=== PATIENT | female | born 1935 | race Caucasian/White ===

== ENCOUNTER → 2018-03-29 10:32 | Outpatient (CLI) | payer MEDICARE, SELFPAY ==
--- NOTE | 2018-03-29 10:37 | BD_ITS ---
STUDY: DUAL ENERGY X-RAY ABSORPTIOMETRY / DXA REASON FOR EXAM: Female, 82 years old. Bone density screening in a postmenopausal patient. TECHNIQUE: Bone Mineral Density (BMD) measurements of lumbar spine and bilateral hips were obtained. COMPARISON: Prior comparison studies are not available for review at this time. FINDINGS: Lumbar Spine (L1-L4): g/cm2 (1.172) / T-score (0.1) / Z-score (1.9) Findings are suggestive of normal bone density with a low fracture risk. Left Femur Total: g/cm2 (0.948) / T-score (-0.5) / Z-score (1.6) Left Femoral Neck: g/cm2 (0.882) / T-score (-1.1) / Z-score (1.1) Right Femur Total: g/cm2 (0.872) / T-score (-1.1) / Z-score (1.0) Right Femoral Neck: g/cm2 (0.853) / T-score (-1.3) / Z-score (0.9) BD/Dexa Bone Density Study IMPRESSION: The patient is considered osteopenic as outlined below according to World Darrel Organization (WHO) criteria with a moderate fracture risk. Reference Information: The T-score is the number of standard deviations above or below the standard which is normal for young adults at their peak bone mineral density. The World Health Organization (WHO) interprets the T-scores as follows: Above -1 Normal bone density Between -1 and -2.5 Osteopenia Equal to / or below -2.5 Osteoporosis As a practical clinical guideline, osteopenia may be graded as follows: Mild -1 through -1.5 Moderate -1.6 through -2.0 Severe -2.1 through -2.4 The Z-score is the number of standard deviations above or below age-matched controls. A Z-score of less than -1.5 would be considered abnormal. References: 1. NIH Osteoporosis and Related Bone Diseases http://www.osteo.org 2. International Society for Clinical Densitometry http://www.iscd.org 3. National Osteoporosis Foundation http://www.nof.org Electronically Signed: Irish Garcia MD at 9:15 EDT , Service support ,
== END ==
PROVIDERS: Family Provider Family Medicine; PCP Family Medicine; Visit Provider Family Medicine
DX: Z00.00 Encounter for general adult medical examination without abnormal findings (principal); Z78.0 Asymptomatic menopausal state
CPT/HCPCS: 77080

== ENCOUNTER → 2018-07-07 11:21 | Outpatient (CLI) | payer MEDICARE, SELFPAY ==
[2018-07-09 08:37] LABS: Vitamin D,25 Hydroxy 55.6 ng/mL (29.95-100.01)
== END ==
PROVIDERS: Family Provider Family Medicine; PCP Family Medicine; Visit Provider Family Medicine
DX: E55.9 Vitamin D deficiency, unspecified (principal)
CPT/HCPCS: 36415; 82306

== ENCOUNTER → 2018-08-10 10:42 | Outpatient (CLI) | payer MEDICARE, SELFPAY | PROVIDERS: Family Provider Family Medicine; PCP Family Medicine; Visit Provider Family Medicine | DX: R30.0 Dysuria (principal) | CPT/HCPCS: 87086; 87088 ==

== ENCOUNTER → 2018-08-20 11:46 | Outpatient (CLI) | payer MEDICARE, SELFPAY | PROVIDERS: Family Provider Family Medicine; PCP Family Medicine; Visit Provider Family Medicine | DX: R30.0 Dysuria (principal) | CPT/HCPCS: 87077; 87086; 87088; 87186 ==

== ENCOUNTER → 2019-01-07 10:20 | Outpatient (CLI) | payer MEDICARE, SELFPAY ==
[2019-01-07 11:47] LABS: Vitamin D,25 Hydroxy 24.6 ng/mL (29.95-100.01)
[2019-01-07 12:12] LABS: ALB/GLOB Ratio 1.2 RATIO (0.9-2.4); AST(SGOT) 16 U/L (15-37); Alanine Aminotransfer ALT/SGPT 21 U/L (13-56); Albumin, Serum 3.9 g/dL (3.2-5.0); Alkaline Phosphatase 95 U/L (45-117); Anion Gap 10 (5-15); BUN 19 mg/dL (7-18); BUN/Creat Ratio 24.5 RATIO (10-20); Calcium,Total 9.5 mg/dL (8.5-10.1); Chloride 107 mmol/L (98-107); Cholesterol 205 mg/dL (200); Creatinine, Serum 0.78 mg/dL (0.55-1.02); EST Glomerular Filtration Rate 76 mL/min (>60); Est Glom Filt Rate - Afr Amer 92 mL/min (>60); Globulin 3.3 g/dL (2.2-4.2); Glucose 83 mg/dL (74-106); High Density Lipoprotein 73 mg/dL; Potassium 3.9 mmol/L (3.5-5.1); Protein, Total 7.2 g/dL (6.4-8.2); Sodium Level 143 mmol/L (136-145); Thyroid Stim Hormone (TSH) 0.92 uIU/mL (0.358-3.74); Triglycerides 94 mg/dL; Very Low Density Lipoprotein 19 mg/dL (5-40)
== END ==
PROVIDERS: Family Provider Family Medicine; PCP Family Medicine; Referring Provider Family Medicine; Visit Provider Family Medicine
DX: E78.5 Hyperlipidemia, unspecified (principal); M85.80 Other specified disorders of bone density and structure, unspecified site; E55.9 Vitamin D deficiency, unspecified
CPT/HCPCS: 36415; 80053; 80061; 82306; 84443

== ENCOUNTER 2019-01-25 14:20 | Emergency (ER) | payer MEDICARE, SELFPAY ==
[2019-01-25 14:24] VITALS: BP 186/63; PULSE 67; RESP 16; TEMP 36.4; O2SAT 100; BMI 29.1
[2019-01-25 14:55] LABS: Bacteria 0 SEEN /hpf (None Seen); Mucous, Urine 0 SEEN /hpf (<or=2+)
[2019-01-25 14:57] LABS: Color, Urine Yellow (Yellow); Glucose, Dipstick Normal (Normal); Ketone-Dipstick Negative (Negative); Leukocyte Esterase-Dipstick 25 /ul (Negative); Nitrite-Dipstick Negative (Negative); Occult Blood-Urine 250 /ul (Negative); Protein-Dipstick 15 mg/dl (Negative); Specific Gravity, Urine 1.025 (1.002-1.030); Urine Bilirubin Dipstick Negative (Negative); Urine Clarity Sl. Cloudy (Clear); Urine Urobilinogen Normal (Normal)
[2019-01-25 15:03] LABS: Red Blood Cells-Urine 25-50 SEEN /hpf (0-5); Squamous Epithelial Cells - UA 0-5 SEEN /hpf (5-10)
[2019-01-25 15:04] LABS: White Blood Cells 0-5 SEEN /hpf (0-5)
--- NOTE | 2019-01-25 15:30 | CT_ITS ---
STUDY: CT ABDOMEN AND PELVIS WITH CONTRAST REASON FOR EXAM: Female, 83 years old. Left flank pain, history of abdominal sarcoma status post radiation treatment RADIATION DOSAGE (If Supplied By Facility): CTDIvol = ( 15.6 ) mGy, DLP = ( 1028.52 ) mGycm TECHNIQUE: Transaxial images were obtained from the dome of the diaphragm to the symphysis pubis with oral contrast. Isovue 300 100CC IV/Oral was administered. Sagittal and coronal images were reconstructed. Individualized dose optimization techniques were used for this CT. COMPARISON: Prior study of December 31, 2010 FINDINGS: There is a pleural-based 3 mm nodule of the right lower lobe image 4 of series 2. There is a 3 mm nodule of the left lingula also image 4 series 2. The heart size is within normal limits. There is no pericardial effusion. Coronary arterial calcifications are present. There are multiple hepatic cysts. The largest of these is located in the left hepatic lobe and measures 4.5 cm in diameter. One of the left hepatic lobe cyst demonstrates calcified rim. There is a solitary gallstone. There is a small cyst of the anterior spleen. There is prominence of the pancreatic head measuring up to 3.7 cm in diameter. This is stable however from the previous study. Normal bilateral adrenal glands. There are several right renal cysts, stable in the interval. Normal left kidney. There is a small hiatal hernia. Normal small intestine. There is colonic diverticulosis with no evidence of associated diverticulitis. The appendix is visualized and appears normal. There are calcified plaques of the abdominal aorta and common iliac arteries. Normal inferior vena cava. Normal retroperitoneum. Normal urinary bladder. The uterus and adnexal structures are unremarkable. There is a small fluid collection of the mid anterior abdominal wall measuring 1.8 x 0.6 cm, most likely representing a postoperative seroma. There has been interval removal of a large fatty density left abdominal/pelvic mass seen on the previous study. There has also been interval postsurgical removal of predominantly fatty density mass of the left gluteal musculature seen on the prior study. There are diffuse degenerative changes of the visualized thoracolumbar spine. There is a grade 1 anterolisthesis of L4 relative to L5. There is a unilateral left L5 spondylolysis. CT/Abdomen/Pelvis WITH Contrast IMPRESSION: Evidence of surgical removal of previously noted left abdominal/pelvic and left gluteal musculature masses noted on the prior study. There is no evidence of new or recurrent malignancy. Small pleural-based pulmonary nodules, stable in the interval. Multiple hepatic cysts, the majority of which appear similar to the previous study. Cholelithiasis. Subcentimeter cyst of the anterior spleen. Pancreatic head prominence measuring up to 3.7 cm in diameter, stable in the interval. Small hiatal hernia. Small fluid collection of the mid anterior abdominal wall measuring 1.8 x 0.6 cm most likely representing a postoperative seroma. Grade 1 anterolisthesis of L4 relative to L5. Unilateral left L5 spondylolysis. Electronically Signed: Reymundo Quezada MD at 18:00 EST , Service support ,
[2019-01-25 15:41] LABS: Absolute Lymphocyte Count 1.15 X10^3/ul (0.83-4.51); Absolute Neutrophil Count 5.5 X10^3/uL (2.0-7.7); Basophil# 0.03 X10^3/uL; Basophil% 0.4 % (0-1); Eosinophil# 0.22 X10^3/uL; Hematocrit 43.5 % (37-47); Hemoglobin 13.9 g/dl (12.0-15.0); Lymphocyte # 1.15 X10^3/ul (4.0); Lymphocyte % 15.5 % (19-41); Mean Corpuscular Hgb 27.9 pg (27.0-32.0); Mean Corpuscular Volume 87.2 fL (81-99); Mean Platelet Vol. 10.8 fl (6.2-12.0); Monocyte% 6.7 % (0-10); Neutrophil # 5.52 X10^3/uL (2.7-7.7); Neutrophil % 74.3 % (47-70); Platelet Count 269 K/mm3 (150-450); RBC Distribution Width CV 14.1 % (11.6-14.6); RBC Distribution Width SD 44.4 fl (35.1-43.9); Red Blood Count 4.99 M/mm3 (4.2-5.4); White Blood Count 7.4 K/mm3 (4.4-11.0)
--- NOTE | 2019-01-25 15:41 | ED.VISSUMM ---
- ER Visit Summary Date of Service: 01/25/19 Chief Complaint: Flank pain History of Present Illness: The patient is a [address] Torres. She reports she had the abrupt onset of left flank pain 1:00 this afternoon. It was a sharp pain is 10 at 10 worst and she is now pain-free. It was worsened by nothing relieved by nothing. She had nausea without vomiting. Denies any diarrhea. She had a loose stool today. No blood in her stools or black tarry stools. No dysuria frequency. She reports this is similar to when she had kidney stones in the past. Review of systems otherwise negative. Physical Examination: Vitals: Stable. Afebrile. General: Well-nourished and well-developed. Head: Normocephalic atraumatic. Neck: Supple, no lymphadenopathy. No JVD. Nontender. Cardiovascular: Regular rate and rhythm. No murmurs. Respiratory: No respiratory distress. Clear to auscultation bilaterally. Abdominal: Soft, nontender, nondistended, normal bowel sounds. No guarding, rebound, or peritoneal signs. Back: Nontender. Extremities: Nontender, no edema. Skin: Normal color, no rash. Neurologic: Alert and oriented ?3. Cranial nerves II through XII are intact. Normal strength and sensation. Psych: Normal affect. Test Results: CBC is remarkable for segmented neutrophils of 74 and lymphocytes 16. Chem-7 is remarkable for a sodium 146, chloride 111, BUN 22. UA is consistent with a stone. She has 25-50 red blood cells. No evidence of infection. Clinical Impression(s) from Imaging Studies Abdomen/Pelvis CT 01/25/19 15:30 IMPRESSION: Evidence of surgical removal of previously noted left abdominal/pelvic and left gluteal musculature masses noted on the prior study. There is no evidence of new or recurrent malignancy. Small pleural-based pulmonary nodules, stable in the interval. Multiple hepatic cysts, the majority of which appear similar to the previous study. Cholelithiasis. Subcentimeter cyst of the anterior spleen. Pancreatic head prominence measuring up to 3.7 cm in diameter, stable in the interval. Small hiatal hernia. Small fluid collection of the mid anterior abdominal wall measuring 1.8 x 0.6 cm most likely representing a postoperative seroma. Grade 1 anterolisthesis of L4 relative to L5. Unilateral left L5 spondylolysis. Electronically Signed: Reymundo Quezada MD at 18:00 EST , Service support , Emergency Department Course and Treatment: Patient had a CT obtained to look for the kidney stone. She was scheduled to have a follow-up CT for her history of cancer. Because of this she was given p.o. and IV contrast. The read is as above. They do not comment on ureterolithiasis. I reviewed the CT myself and she has a number of calcifications in the pelvis. However, I do think that 1 of these is in the distal ureter. She is resting comfortably. Treatment Plan: Patient will be discharged with instructions to follow-up Dr. Milner in 1 week if not improving. She given a prescription for [place] and Colace. Return to the emergency department for any worsening symptoms. Disposition: To home in improved and stable condition. Impression: 1 1. Left ureterolithiasis. This note was generated with [employer] dictation software. It may contain incorrect words, spelling, and punctuation that were not noted in review of the chart prior to signing ED Disposition - Plan for ED Patient: Disposition: Home or Assisted Living Instructions: ED Stone Renal W Colic Prescriptions: Hydrocodone Bitart/Apap 5-325 [[place] 5MG-325MG] 1 tablet PO Q6H PRN PRN 3 Days #10 tablet PRN Reason: Pain Ondansetron [Zofran Odt] 4 mg PO Q8H PRN PRN #10 tablet PRN Reason: Nausea Referrals: Jordan Milner MD [STAFF PHYSICIAN] - 1 Week if not improving Akshat Yu MD [STAFF PHYSICIAN] - Keep Odalis appointment
[2019-01-25 15:49] LABS: Anion Gap 9 (5-15); BUN 22 mg/dL (7-18); BUN/Creat Ratio 24.4 RATIO (10-20); Calcium,Total 9.3 mg/dL (8.5-10.1); Chloride 111 mmol/L (98-107); EST Glomerular Filtration Rate 64 mL/min (>60); Est Glom Filt Rate - Afr Amer 77 mL/min (>60); Estimated Creatinine Clearance 46.87 ml/min; Glucose 96 mg/dL (74-106); Sodium Level 146 mmol/L (136-145)
[2019-01-25 16:05] LABS: POSITIVE COUNT NO; POSITIVE DIFFERENTIAL NO; POSITIVE MORPHOLOGY NO
[2019-01-25 17:28] VITALS: BP 176/69; PULSE 65; RESP 18; O2SAT 99
[2019-01-25 19:10] VITALS: BP 178/62; PULSE 82; RESP 18; O2SAT 95
== END 2019-01-25 19:11 | disposition home or self-care (01) ==
LOC: ED 15:40
PROVIDERS: Emergency Provider Emergency Medicine; Family Provider Family Medicine; PCP Family Medicine
DX: N20.1 Calculus of ureter (principal); I10 Essential (primary) hypertension; K76.89 Other specified diseases of liver; K80.20 Calculus of gallbladder without cholecystitis without obstruction; K44.9 Diaphragmatic hernia without obstruction or gangrene; H40.9 Unspecified glaucoma; Z79.899 Other long term (current) drug therapy; Z87.442 Personal history of urinary calculi; Z85.9 Personal history of malignant neoplasm, unspecified
CPT/HCPCS: 74177; 80048; 81001; 85025; 99283; Q9967; A4216

== ENCOUNTER → 2019-03-12 11:05 | Outpatient (CLI) | payer MEDICARE, SELFPAY | LOC: MFPLAB 11:06 → LABSPEC 11:08 | PROVIDERS: Family Provider Family Medicine; PCP Family Medicine; Referring Provider Family Medicine; Visit Provider Nurse Practitioner Adult Health | DX: R30.0 Dysuria (principal) | CPT/HCPCS: 87077; 87086; 87088; 87186 ==

== ENCOUNTER 2019-04-10 10:53 | Emergency (ER) | payer MEDICARE, SELFPAY ==
[2019-04-10 10:55] VITALS: BP 182/72; PULSE 62; RESP 18; TEMP 36.4; O2SAT 99; BMI 31.3
--- NOTE | 2019-04-10 11:17 | RAD_ITS ---
STUDY: X-RAY - LEFT FOOT CLINICAL: Female, 83 years old. Pain and swelling. Recent injury. TECHNIQUE: 3 view(s) of the foot. COMPARISON: None. FINDINGS: There is an enthesophyte involving the posterior superior calcaneus at the site of insertion of the Achilles tendon. Normal visualized subtalar, talonavicular, calcaneocuboid, tarsal and tarsometatarsal articulations. Normal metatarsi. There is degenerative arthrosis of the metatarsophalangeal joint of the hallux . Normal tibial and fibular sesamoid bones. Normal interphalangeal joint of the great toe. Normal phalanges of the great toe. Normal second through fifth metatarsophalangeal joints. Flexion deformity of the second third fourth and fifth proximal interphalangeal joints. Diffuse dorsal soft tissue swelling. RAD/Foot min 3 Views IMPRESSION: Diffuse dorsal soft tissue swelling. No fracture is seen. Electronically Signed: Perry Dooley, at 11:42 EDT , Service support ,
--- NOTE | 2019-04-10 11:24 | ED.VISSUMM ---
- ER Visit Summary Date of Service: 04/10/19 Chief Complaint: Foot injury History of Present Illness: The patient is a 83 F who excellently dropped a drawer on her left foot. She notes swelling and bruising. Pain with touch and ambulation. Physical Examination: Afebrile vital signs stable There is a large hematoma over the dorsal surface of the left foot. Neurovascular intact. Test Results: Foot x-rays revealed a hematoma but no fracture. Emergency Department Course and Treatment: Patient be discharged home with supportive care instructions for ice elevation return if worsening or concerns Impression: 1. Left foot hematoma This note was generated with [employer] dictation software. It may contain incorrect words, spelling, and punctuation that were not noted in review of the chart prior to signing ED Disposition - Plan for ED Patient: Disposition: Home or Assisted Living Instructions: ED Hematoma Referrals: Harley Harding MD [Primary Care Provider] - As Needed
--- NOTE | 2019-04-10 11:27 | ED.DCSUM_ITS ---
- ER Visit Summary Date of Service: 04/10/19 Chief Complaint: Foot injury History of Present Illness: The patient is a 83 F who excellently dropped a drawer on her left foot. She notes swelling and bruising. Pain with touch and ambulation. Physical Examination: Afebrile vital signs stable There is a large hematoma over the dorsal surface of the left foot. Neurovascular intact. Test Results: Foot x-rays revealed a hematoma but no fracture. Emergency Department Course and Treatment: Patient be discharged home with supportive care instructions for ice elevation return if worsening or concerns Impression: 1. Left foot hematoma This note was generated with [facility] dictation software. It may contain incorrect words, spelling, and punctuation that were not noted in review of the chart prio r to signing ED Disposition - Plan for ED Patient: Disposition: Home or Assisted Living Instructions: ED Hematoma Referrals: Harley Harding MD [Primary Care Provider] - As Needed
== END 2019-04-10 12:15 | disposition home or self-care (01) ==
PROVIDERS: Emergency Provider Emergency Medicine; Family Provider Family Medicine; PCP Family Medicine
DX: S90.32XA Contusion of left foot, initial encounter (principal); W20.8XXA Other cause of strike by thrown, projected or falling object, initial encounter; Y93.9 Activity, unspecified; Y92.9 Unspecified place or not applicable; Y99.9 Unspecified external cause status; Z79.899 Other long term (current) drug therapy
CPT/HCPCS: 73630; 99282

== ENCOUNTER → 2019-04-18 14:54 | Outpatient (CLI) | payer MEDICARE, SELFPAY ==
[2019-04-10 10:55] VITALS: BMI 31.3
--- NOTE | 2019-04-18 15:00 | RAD_ITS ---
STUDY: X-RAY - LEFT FOOT CLINICAL: Female, 83 years old. heavy part of desk fell off onto top of patient's left foot, lac on top, bruising by toes and medial foot TECHNIQUE: 3 view(s) of the foot. COMPARISON: None. FINDINGS: Normal talus, calcaneus, and tarsal bones. Spurring is noted in association with the Achilles tendon insertion upon the calcaneus. Normal visualized subtalar, talonavicular, calcaneocuboid, tarsal and tarsometatarsal articulations. Normal metatarsi. There is mild degenerative arthrosis of the metatarsophalangeal joint of the hallux with joint space loss and mild spurring. . Normal tibial and fibular sesamoid bones. Normal interphalangeal joint of the great toe. Normal phalanges of the great toe. Normal second through fifth metatarsophalangeal joints. Normal interphalangeal joints and phalanges of the lesser toes. Prominent soft tissue swelling is noted over the dorsum of the forefoot. There is no demonstrated fracture. RAD/Foot min 3 Views IMPRESSION: No evidence of fracture. Prominent soft tissue swelling overlies the dorsum of the forefoot. Electronically Signed: Catarina Singh MD at 19:11 EDT , Service support ,
== END ==
PROVIDERS: Family Provider Family Medicine; PCP Family Medicine; Referring Provider Family Medicine; Visit Provider Family Medicine
DX: S99.922A Unspecified injury of left foot, initial encounter (principal); X58.XXXA Exposure to other specified factors, initial encounter; Y93.9 Activity, unspecified; Y92.9 Unspecified place or not applicable; Y99.9 Unspecified external cause status
CPT/HCPCS: 73630

== ENCOUNTER → 2019-05-01 16:47 | Outpatient (CLI) | payer MEDICARE, SELFPAY ==
[2019-04-10 10:55] VITALS: BMI 31.3
[2019-05-01 17:56] LABS: Anion Gap 7 (5-15); BUN 25 mg/dL (7-18); BUN/Creat Ratio 28.2 RATIO (10-20); Calcium,Total 9.5 mg/dL (8.5-10.1); Chloride 108 mmol/L (98-107); Creatinine, Serum 0.88 mg/dL (0.55-1.02); EST Glomerular Filtration Rate 65 mL/min (>60); Est Glom Filt Rate - Afr Amer 79 mL/min (>60); Glucose 92 mg/dL (74-106); Potassium 4.4 mmol/L (3.5-5.1); Sodium Level 141 mmol/L (136-145)
== END ==
PROVIDERS: Family Provider Family Medicine; PCP Family Medicine; Referring Provider Family Medicine; Visit Provider Family Medicine
DX: I10 Essential (primary) hypertension (principal)
CPT/HCPCS: 36415; 80048

== ENCOUNTER → 2019-10-29 13:22 | Outpatient (CLI) | payer MEDICARE, SELFPAY | PROVIDERS: Family Provider Family Medicine; PCP Family Medicine; Referring Provider Family Medicine; Visit Provider Family Medicine | DX: N39.0 Urinary tract infection, site not specified (principal) | CPT/HCPCS: 87086; 87088 ==

== ENCOUNTER → 2020-01-08 16:53 | Outpatient (CLI) | payer MEDICARE, SELFPAY | PROVIDERS: PCP Family Medicine; Referring Provider Family Medicine; Visit Provider Family Medicine | DX: N39.0 Urinary tract infection, site not specified (principal) | CPT/HCPCS: 87077; 87086; 87088; 87186 ==

== ENCOUNTER → 2020-01-30 10:42 | Outpatient (CLI) | payer MEDICARE, SELFPAY ==
[2020-01-30 13:01] LABS: ALB/GLOB Ratio 1.3 RATIO (0.9-2.4); AST(SGOT) 19 U/L (15-37); Alanine Aminotransfer ALT/SGPT 21 U/L (13-56); Albumin, Serum 3.6 g/dL (3.2-5.0); Alkaline Phosphatase 74 U/L (45-117); Anion Gap 4 (5-15); BUN 22 mg/dL (7-18); BUN/Creat Ratio 25.6 RATIO (10-20); Calcium,Total 9.5 mg/dL (8.5-10.1); Chloride 109 mmol/L (98-107); Cholesterol 161 mg/dL (200); Creatinine, Serum 0.86 mg/dL (0.55-1.02); EST Glomerular Filtration Rate 67 mL/min (>60); Est Glom Filt Rate - Afr Amer 81 mL/min (>60); Globulin 2.7 g/dL (2.2-4.2); Glucose 78 mg/dL (74-106); High Density Lipoprotein 63 mg/dL; Potassium 4.3 mmol/L (3.5-5.1); Protein, Total 6.3 g/dL (6.4-8.2); Sodium Level 142 mmol/L (136-145); Triglycerides 84 mg/dL; Very Low Density Lipoprotein 17 mg/dL (5-40)
[2020-01-30 20:21] LABS: Vitamin D,25 Hydroxy 30.7 ng/mL
== END ==
PROVIDERS: PCP Family Medicine; Referring Provider Family Medicine; Visit Provider Family Medicine
DX: E78.5 Hyperlipidemia, unspecified (principal); E55.9 Vitamin D deficiency, unspecified
CPT/HCPCS: 36415; 80053; 80061; 82306

== ENCOUNTER → 2020-04-03 | Outpatient (CLI) | payer MEDICARE, SELFPAY | END | disposition home or self-care (01) | PROVIDERS: Referring Provider Family Medicine; Visit Provider Family Medicine | DX: N39.0 Urinary tract infection, site not specified (principal) | CPT/HCPCS: 87086 ==

== ENCOUNTER → 2020-08-06 14:39 | Outpatient (CLI) | payer MEDICARE, SELFPAY ==
[2020-08-06 16:33] LABS: Vitamin D,25 Hydroxy 37.5 ng/mL
[2020-08-06 16:37] LABS: Anion Gap 5 (5-15); BUN 31 mg/dL (7-18); BUN/Creat Ratio 34.7 RATIO (10-20); Calcium,Total 9.6 mg/dL (8.5-10.1); Chloride 107 mmol/L (98-107); Creatinine, Serum 0.89 mg/dL (0.55-1.02); EST Glomerular Filtration Rate 64 mL/min (>60); Est Glom Filt Rate - Afr Amer 77 mL/min (>60); Glucose 108 mg/dL (74-106); Sodium Level 141 mmol/L (136-145); Thyroid Stim Hormone (TSH) 0.59 uIU/mL (0.358-3.74)
== END ==
PROVIDERS: PCP Family Medicine; Referring Provider Family Medicine; Visit Provider Family Medicine
DX: I10 Essential (primary) hypertension (principal); E55.9 Vitamin D deficiency, unspecified
CPT/HCPCS: 36415; 80048; 82306; 84443

== ENCOUNTER → 2020-08-10 13:55 | Outpatient (CLI) | payer MEDICARE, SELFPAY ==
--- NOTE | 2020-08-10 13:58 | RAD_ITS ---
STUDY: X-RAY - LEFT KNEE REASON FOR EXAM: Female, 84 years old. Left knee pain. No known injury. Knee replacement 13-14 years ago. TECHNIQUE: 3 view(s) of the knee. COMPARISON: None. FINDINGS: Total knee arthroplasty in normal alignment. No evidence of loosening. No fracture identified. Small joint effusion. 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 Small joint effusion. Electronically Signed: Jorge Couch MD at 6:36 EDT , Service support ,
== END ==
PROVIDERS: PCP Family Medicine; Referring Provider Family Medicine; Visit Provider Family Medicine
DX: M25.562 Pain in left knee (principal)
CPT/HCPCS: 73562

== ENCOUNTER → 2020-10-19 14:37 | Outpatient (CLI) | payer MEDICARE, SELFPAY | PROVIDERS: PCP Family Medicine; Visit Provider Family Medicine | DX: N39.0 Urinary tract infection, site not specified (principal) | CPT/HCPCS: 87086; 87088 ==

== ENCOUNTER → 2020-10-28 | Outpatient (CLI) | payer MEDICARE, SELFPAY | END | disposition home or self-care (01) | LOC: LABSPEC 14:55 | PROVIDERS: PCP Family Medicine; Visit Provider Family Medicine | DX: Z20.828 Contact with and (suspected) exposure to other viral communicable diseases (principal) | CPT/HCPCS: 87635; U0003 ==

== ENCOUNTER 2020-12-15 11:00 | Outpatient (RCR) | payer MEDICARE, SELFPAY ==
--- NOTE | 2020-08-24 15:05 | HP.PTEVAL ---
Patient's Visit Information ZACKARY HAMILTON is a 84 year old F referred to Physical Therapy by Dr. Harley Harding MD with a diagnosis of L knee pain. Date of Evaluation: 08/24/20 Physical Therapist: Hector Holden PT, ATC - Visit Plan Frequency: 2x /Week Duration: 4 Weeks Plan: L LE strengthening, core stab ex's, balance and proprio, nustep, and HEP - Subjective Pt has had intermittent L LE pain that originates in L quad region and extends to L snider for 6 mos. Pt rteports her pain had an insidious onset in nature. Pt reports she really doesnt have pain, it is more of a tingling and burning sensation. Pt had x rays which revealed her artifial knee is in good shape. Occasional sleep difficulty secondary to pain. Pt does have occasional LBP. Pt reports prolonged sitting tends to increase her pain. Pt also notes she has increased pain in the morning when she wakes up. 0/10 pain at rest, 10/10 when her L LE is aggrivated. Pt's greatest complaint is that her L LE is weak. - Pain L LE Pain Intensity (Out of 10): 0 Pain Intensity Range: 10 - Objective Neuro: B LE sensation is WNL to light touch. B patellar reflex= 2/3. Girth at joint line: L knee 40 cm, R knee 38.5 cm. Palpation: Pt is sore along the medial joint line of L knee. No obvious swelling present today. ROM: R knee 0-5-125 degrees, L knee 0-110 degrees. MMT: B LE's grossly 4/5. L/S: No pain with flex, increased pain with extension activity - Goals Goal 1:: Decrease L LE pain x 50% to aid with sleep Goal Time Frame: 4-6 Weeks Goal 2:: Increase L LE strength x 1 grade to aid with ambulation Goal Time Frame: 4-6 Weeks Goal 3:: I with HEP Goal Time Frame: 4-6 Weeks - Rehabilitation Potential Physical Therapy Diagnosis: Pt has L LE weakness, pain, and poor balance at this time secondary to degenerative changes in L/S Rehabilitation Potential: Good - Anticipated Interventions Patient/Client Instruction: Educate patient on: Condition, Plan of Care For the Purpose of:: To improve self management Therapeutic Exercise to Include: Strength training, Endurance training, Balance training, Dynamic Lumbar Stabilization For the Purpose of:: To decrease pain, To improve muscle performance and motor function Thank you for the opportunity to evaluate your patient. For Medicare and Medicare HMO plans, please review the plan of care and approve it. It will need to be FAXED BACK to us at [phone] for Medicare purposes. For Medicare only, by signing this I certify the plan of care. Please let me know if there are questions or concerns regarding this plan of care. Physician Signature: Date:
--- NOTE | 2020-10-07 13:08 | HP.PTREVAL ---
Dr. Harley Harding MD, It has been my pleasure to treat ZACKARY HAMILTON over the last 9 visits for L knee pain. Please see the progress note below for an update on the physical therapy plan of care! Subjective: I like the exercises that we have been doing, but I dont think this has really helped. Objective/Function: L knee pain is 0/10. 5/10 pain at worst (a quick twinge). L knee MMT: flex= 5/5, ext= 4-/5. Pt is I with HEP. Pt is showing progress, but is still limited with daily activities such as stair negotiation and floor transfers Plan Plan: cont 1 time per week in clinic and 2 times a week at home with HEP Goals Goal 1:: Decrease L LE pain x 50% to aid with sleep Goal Time Frame: 4-6 Weeks Goal Progress: Goal Met Goal 2:: Increase L LE strength x 1 grade to aid with ambulation Goal Time Frame: 4-6 Weeks Goal Progress: Progressing Goal 3:: I with HEP Goal Time Frame: 4-6 Weeks Goal Progress: Goal Met Anticipated Interventions Patient/Client Instruction: Educate patient on: Condition, Plan of Care For the Purpose of:: To improve self management Therapeutic Exercise to Include: Strength training, Endurance training, Balance training, Dynamic Lumbar Stabilization For the Purpose of:: To decrease pain, To improve muscle performance and motor function Please do not hesitate to contact me at [phone] by phone or if you have questions or concerns regarding this new plan of care! Sincerely, Hector Holden, PT, ATC
--- NOTE | 2020-11-09 12:07 | HP.PTREVAL ---
Dr. Harley Harding MD, It has been my pleasure to treat ZACKARY HAMILTON over the last 13 visits for L knee pain. Please see the progress note below for an update on the physical therapy plan of care! Subjective: Pt reports she can now reciprocally negotiate stairs. Objective/Function: L LE pain ranges from 0-5/10. L LE strength is 4+/5. Pt is progressing with strength and tolerance for activity Plan Plan: Cont with PT one time per week (here supervised) and 2 times per week at home. Goals Goal 1:: Decrease L LE pain x 50% to aid with sleep Goal Time Frame: 4-6 Weeks Goal Progress: Goal Met Goal 2:: Increase L LE strength x 1 grade to aid with ambulation Goal Time Frame: 4-6 Weeks Goal Progress: Progressing Goal 3:: I with HEP Goal Time Frame: 4-6 Weeks Goal Progress: Goal Met Anticipated Interventions Patient/Client Instruction: Educate patient on: Condition, Plan of Care For the Purpose of:: To improve self management Therapeutic Exercise to Include: Strength training, Endurance training, Balance training, Dynamic Lumbar Stabilization For the Purpose of:: To decrease pain, To improve muscle performance and motor function Please do not hesitate to contact me at [phone] by phone or if you have questions or concerns regarding this new plan of care! Sincerely, Hector Holden, PT, ATC
--- NOTE | 2020-12-15 11:49 | HP.PTDCSUM_ITS ---
It has been my pleasure to treat ZACKARY HAMILTON referred by Dr. Harley Harding MD, with the diagnosis of L knee pain for a total of 16 visit(s). Discharge Date: Please see the following information for a summary of their discharge status. Subjective: Pt reports she has improved a lot functionally, but still has that pain in L LE L LE Pain Intensity (Out of 10): 3 % Improvement: 30 Objective/Function: MMT: L LE is 5/5 throughout. L knee pain ranges from 0- 3/10. Pt is I with HEP. Rx goals achieved Goal 1:: Decrease L LE pain x 50% to aid with sleep Goal Progress: Goal Met Goal 2:: Increase L LE strength x 1 grade to aid with ambulation Goal Progress: Goal Met Goal 3:: I with HEP Goal Progress: Goal Met Plan: RTD in January to follow up about L LE radiculopathy. Discharge from PT If there are questions or concerns regarding this patient's physical therapy, please feel free to call me at [phone]. Thank you for the referral of this patient. Sincerely, Hector Holden, PT, ATC
== END 2020-12-15 12:19 | disposition home or self-care (01) ==
LOC: PT 11:00
PROVIDERS: PCP Family Medicine; Referring Provider Family Medicine; Visit Provider Family Medicine
DX: M25.562 Pain in left knee (principal)
CPT/HCPCS: 97110; 97161; 97164

== ENCOUNTER → 2021-01-21 | Outpatient (CLI) | payer MEDICARE, SELFPAY | END | disposition home or self-care (01) | PROVIDERS: PCP Family Medicine; Referring Provider Family Medicine; Visit Provider Family Medicine | DX: N39.0 Urinary tract infection, site not specified (principal) | CPT/HCPCS: 87077; 87086; 87088; 87186 ==

== ENCOUNTER → 2021-02-18 10:58 | Outpatient (CLI) | payer MEDICARE, SELFPAY ==
--- NOTE | 2021-02-18 11:02 | BD_ITS ---
STUDY: DUAL ENERGY X-RAY ABSORPTIOMETRY / DXA REASON FOR EXAM: Female, 85 years old. 627.8Menopausal postmenopausal BONE DENSITY REASON FOR EXAM TECHNIQUE: Bone Mineral Density (BMD) measurements of lumbar spine and bilateral hips were obtained. COMPARISON: Comparison is made with prior study dated 03/29/2018. FINDINGS: Lumbar Spine (L1-L4): g/cm2 (1.293) / T-score (1.1) / Z-score (3.0) Findings are suggestive of normal bone density with a low fracture risk. Left Femur Total: g/cm2 (0.911) / T-score (-0.8) / Z-score (1.5) Left Femoral Neck: g/cm2 (0.866) / T-score (-1.2) / Z-score (1.1) Right Femur Total: g/cm2 (0.876) / T-score (-1.0) / Z-score (1.2) Right Femoral Neck: g/cm2 (0.882) / T-score (-1.1) / Z-score (1.2) The T-Scores on the most recent prior examination were: Lumbar Spine (L1-L4): There has been improvement of bone density since the previous examination. Left Femur Total: which represents a worsening of 3.9%. Right Femur Total: which represents an improvement of 0.5%. BD/Dexa Bone Density Study IMPRESSION: The patient is considered osteopenic as outlined below according to World Darrel Organization (WHO) criteria with a low fracture risk. There has been improvement of bone density since the previous examination. Reference Information: The T-score is the number of standard deviations above or below the standard which is normal for young adults at their peak bone mineral density. The World Health Organization (WHO) interprets the T-scores as follows: Above -1 Normal bone density Between -1 and -2.5 Osteopenia Equal to / or below -2.5 Osteoporosis As a practical clinical guideline, osteopenia may be graded as follows: Mild -1 through -1.5 Moderate -1.6 through -2.0 Severe -2.1 through -2.4 The Z-score is the number of standard deviations above or below age-matched controls. A Z-score of less than -1.5 would be considered abnormal. References: 1. NIH Osteoporosis and Related Bone Diseases www osteo.org 2. International Society for Clinical Densitometry www iscd.org 3. National Osteoporosis Foundation www nof.org Electronically Signed: Perry Dooley MD at 12:51 EDT , Service support ,
== END ==
PROVIDERS: PCP Family Medicine; Referring Provider Family Medicine; Visit Provider Family Medicine
DX: M85.80 Other specified disorders of bone density and structure, unspecified site (principal); Z78.0 Asymptomatic menopausal state
CPT/HCPCS: 77080

== ENCOUNTER → 2021-02-23 11:08 | Outpatient (CLI) | payer MEDICARE, SELFPAY ==
--- NOTE | 2021-02-23 11:09 | ART_ITS ---
Reason For Study: PVD Procedure A bilateral lower extremity continuous wave Doppler with analog waveform analysis and ankle brachial indexes. Left Segmental Pressures Left brachial= 181mmHg. Left posterior tibial artery = 180mmHg. Left dorsalis pedis artery = 178mmHg. Left digit = 117 mmHg. The left dorsalis pedis waveforms are triphasic. The left posterior tibial artery waveforms are triphasic. Right Segmental Pressures Right brachial= 173mmHg. Right posterior tibial artery = 188mmHg. Right dorsalis pedis artery = 196mmHg. Right digit = 143 mmHg. The right dorsalis pedis waveforms are triphasic. The right posterior tibial artery waveforms are triphasic. Indices The right ankle brachial index by the dorsalis pedis is 1.08. The right ankle brachial index by the posterior tibial artery is 1.04. The right digital-brachial index is 0.79. The left ankle brachial index by the dorsalis pedis is 0.98. The left ankle brachial index by the posterior tibial artery is 0.99. The left digital-brachial index is 0.65. VL/Ankle Brachial Index Interpretation Summary Triphasic Doppler waveforms are noted at ankle level bilaterally. Pulse-volume recordings appear satisfactory at ankle and digital level bilaterally. Resting ankle-brachial ind ices are normal bilaterally. The right digital-brachial index is normal. The left digital-brach ial index is mildly diminished. Arterial flow appears normal at ankle level bilaterally, and at digital level o n the right. There is evidence of mild, distal, small-vessel arterial occlusive disease at digital le kayy on the left. Ordering Physician: Harley Harding Referring Physician: Harley Harding Performed By: Zita Arteaga RVT
== END ==
PROVIDERS: PCP Family Medicine; Referring Provider Family Medicine; Visit Provider Family Medicine
DX: I73.9 Peripheral vascular disease, unspecified (principal)
CPT/HCPCS: 93922

== ENCOUNTER → 2021-07-12 16:11 | Outpatient (CLI) | payer MEDICARE, SELFPAY ==
--- NOTE | 2021-07-12 16:30 | RAD_ITS ---
STUDY: X-RAY - LUMBOSACRAL SPINE REASON FOR EXAM: Female, 85 years old. Back pain. TECHNIQUE: 6 view(s) of the lumbosacral spine including lateral flexion and extension views were obtained. COMPARISON: None FINDINGS: Diffuse moderate osteopenia. Normal lumbar lordosis. Mild levoscoliosis. 15 mm of anterolisthesis of L4 on L5 and 18 mm of anterolisthesis of L5 on S1 from facet degeneration. Limited flexion and extension with no abnormal motion Diffuse marked facet sclerosis. Normal vertebral bodies and endplates. Intervertebral disc space narrowing diffusely most marked at L4-5 and L5-S1 with osteophytes most marked at L5-S1. 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 Surgical clips. Calcification in the right upper quadrant which may represent a gallstone. RAD/L/S Spine w Bend Min 6 Vw IMPRESSION: Osteopenia with diffuse moderate 2 marked lumbar spondylosis. Grade 1 spondylolisthesis of L4 on L5 and of L5 on S1. Limited flexion and extension with no abnormal motion. Electronically Signed: Charles Edouard MD at 12:56 EDT , Service support ,
[2021-07-12 18:05] LABS: Hematocrit 42.1 % (37-47); Hemoglobin 13.5 g/dL (12.0-15.0); Mean Corp Hgb Conc 32.1 g/dL (32-36); Mean Corpuscular Volume 87.2 fL (81-99); Mean Platelet Vol. 10.7 fl (6.2-12.0); Platelet Count 275 K/mm3 (150-450); RBC Distribution Width CV 13.9 % (11.6-14.6); RBC Distribution Width SD 44.4 fl (35.1-43.9); Red Blood Count 4.83 M/mm3 (4.2-5.4); White Blood Count 5.5 K/mm3 (4.4-11.0)
[2021-07-12 18:15] LABS: ALB/GLOB Ratio 1.2 RATIO (0.9-2.4); AST(SGOT) 17 U/L (15-37); Alanine Aminotransfer ALT/SGPT 20 U/L (13-56); Albumin, Serum 3.9 g/dL (3.2-5.0); Alkaline Phosphatase 83 U/L (45-117); Anion Gap 4 (5-15); BUN 30 mg/dL (7-18); BUN/Creat Ratio 43.6 RATIO (10-20); Calcium,Total 9.9 mg/dL (8.5-10.1); Chloride 110 mmol/L (98-107); Creatinine, Serum 0.69 mg/dL (0.55-1.02); EST Glomerular Filtration Rate 86 mL/min (>60); Est Glom Filt Rate - Afr Amer 104 mL/min (>60); Globulin 3.2 g/dL (2.2-4.2); Glucose 87 mg/dL (74-106); Potassium 3.9 mmol/L (3.5-5.1); Protein, Total 7.1 g/dL (6.4-8.2); Sodium Level 141 mmol/L (136-145)
== END ==
PROVIDERS: PCP Family Medicine; Referring Provider Family Medicine; Visit Provider Family Medicine
DX: R11.10 Vomiting, unspecified (principal); M43.17 Spondylolisthesis, lumbosacral region; M47.816 Spondylosis without myelopathy or radiculopathy, lumbar region; M85.80 Other specified disorders of bone density and structure, unspecified site
CPT/HCPCS: 36415; 72114; 80053; 85027

== ENCOUNTER → 2021-07-20 16:23 | Outpatient (CLI) | payer MEDICARE, SELFPAY ==
[2021-07-20 18:19] LABS: Uric Acid 4.7 mg/dL (2.6-6.0)
== END ==
PROVIDERS: PCP Family Medicine; Referring Provider Family Medicine; Visit Provider Family Medicine
DX: M10.9 Gout, unspecified (principal)
CPT/HCPCS: 36415; 84550

== ENCOUNTER 2021-09-21 13:00 | Outpatient (RCR) | payer MEDICARE, SELFPAY ==
--- NOTE | 2021-07-22 11:17 | HP.PTEVAL ---
Patient's Visit Information ZACKARY HAMILTON is a 85 year old F referred to Physical Therapy by Dr. Harley Harding MD with a diagnosis of DDD Lumbar. Date of Evaluation: 07/21/21 Physical Therapist: Hector Holden, PT, ATC - Visit Plan Frequency: 2-3x /Week Duration: 4 Weeks Plan: SKTC/DKTC, postural education, core stab ex's, balance and proprio ex's, nustep, and HEP - Subjective Pt reports she has had L LE radiculopathy for a chronic period of time. Pt reports her pain is intermittent in nature, and her pain has an insidious onset in nature. Pt reports the pain occurs almost every evening, and notes it is always in her L LE. Pt reports she has had blood work and xrays which revealed everything is normal. Pt also notes she has had a bone density test which reveals everything is good for her age. Pt also notes she is here for balance as she has noticed over the past year that her balance keeps getting worse and worse. Pt reports her L LE radiculopathy extends the whole way down. No sleep difficulty secondary to pain. Pt reports the only thing that helps to relieve her pain is to prop her L LE on a stool in front of her. 0/10 pain at rest, 7/10 pain at worst - Pain L LE Pain Intensity (Out of 10): 0 Pain Intensity Range: 7 - Objective Neuro: B LE sensation is WNL to light touch. B patellar reflex= 2/3. MMT: B LE's are grossly 5/5 throughout. ROM: Pt is minimally limited in all planes except ext= moderately limited. Repeated movements: Prone prop 1 min x 2 NE, SKTC/DKTC 10 sec x 3 ea NE - Balance/Special Test Scores Oswestry Low Back Score: 13 - Goals Goal 1:: Decrease L LE radiculopathy x 50% to aid with ambulation Goal Time Frame: 4-6 Weeks Goal 2:: Increase L/S ROM x 1 grade to aid with IADL's Goal Time Frame: 4-6 Weeks Goal 3:: I with HEP Goal Time Frame: 4-6 Weeks - Rehabilitation Potential Physical Therapy Diagnosis: Pt has limited L/S ROM and L LE radiculopathy secondary to DDD Rehabilitation Potential: Good - Anticipated Interventions Patient/Client Instruction: Educate patient on: Condition, Plan of Care For the Purpose of:: To improve self management Therapeutic Exercise to Include: Strength training, Endurance training, Balance training, Postural training, Flexibilty training, Gait and locomotor training, Dynamic Lumbar Stabilization For the Purpose of:: To decrease pain, To increase ROM, To improve muscle performance and motor function Thank you for the opportunity to evaluate your patient. For Medicare and Medicare HMO plans, please review the plan of care and approve it. It will need to be FAXED BACK to us at [phone] for Medicare purposes. For Medicare only, by signing this I certify the plan of care. Please let me know if there are questions or concerns regarding this plan of care. Physician Signature: Date:
--- NOTE | 2021-08-13 12:34 | HP.PTREVAL ---
Dr. Harley Harding MD, It has been my pleasure to treat ZACKARY HAMILTON over the last 9 visits for DDD Lumbar. Please see the progress note below for an update on the physical therapy plan of care! Subjective: I dont have pain right now. I have had 3/10 LBP over the last few days. Objective/Function: LBP ranges from 0-3/10. Pt continues to experience L LE radiculopathy with prolonged sitting and standing. Pt is progressing well but still needs skilled PT to work on pain control and LE radiculopathy Plan Plan: Cont with focus on pain control, L/S stab ex's, and decreasing L LE radiculopathy Balance/Gait/Functional tests - Balance/Special Test Scores Oswestry Low Back Score: 17 Goals Goal 1:: Decrease L LE radiculopathy x 50% to aid with ambulation Goal Time Frame: 4-6 Weeks Goal Progress: Progressing Goal 2:: Increase L/S ROM x 1 grade to aid with IADL's Goal Time Frame: 4-6 Weeks Goal Progress: Progressing Goal 3:: I with HEP Goal Time Frame: 4-6 Weeks Goal Progress: Progressing Anticipated Interventions Patient/Client Instruction: Educate patient on: Condition, Plan of Care For the Purpose of:: To improve self management Therapeutic Exercise to Include: Strength training, Endurance training, Balance training, Postural training, Flexibilty training, Gait and locomotor training, Dynamic Lumbar Stabilization For the Purpose of:: To decrease pain, To increase ROM, To improve muscle performance and motor function Please do not hesitate to contact me at [phone] by phone or if you have questions or concerns regarding this new plan of care! Sincerely, Hector Holden, PT, ATC
--- NOTE | 2021-09-21 13:35 | HP.PTDCSUM ---
It has been my pleasure to treat ZACKARY HAMILTON referred by Dr. Harley Harding MD, with the diagnosis of DDD Lumbar for a total of 16 visit(s). Discharge Date: Please see the following information for a summary of their discharge status. Subjective: I feel like I am ready to be done L LE Pain Intensity (Out of 10): 0 % Improvement: 70 Objective/Function: LBP is 0/10 currently. Pt is I with HEP. L/S ROM is WFL at this time. Pt continues to have L LE radiculopathy, but the stretching is helping to improve that Goal 1:: Decrease L LE radiculopathy x 50% to aid with ambulation Goal Progress: Progressing Goal 2:: Increase L/S ROM x 1 grade to aid with IADL's Goal Progress: Goal Met Goal 3:: I with HEP Goal Progress: Goal Met Plan: Discharge to [facility] If there are questions or concerns regarding this patient's physical therapy, please feel free to call me at [phone]. Thank you for the referral of this patient. Sincerely, Hector Holden, PT, ATC Balance/Gait/Functional tests - Balance/Special Test Scores Oswestry Low Back Score: 12
== END 2021-09-21 19:00 | disposition home or self-care (01) ==
LOC: PT 13:00
PROVIDERS: PCP Family Medicine; Visit Provider Family Medicine
DX: M51.36 Other intervertebral disc degeneration, lumbar region (principal)
CPT/HCPCS: 97110; 97161; 97164

== ENCOUNTER 2021-09-29 20:26 | Emergency (ER) | payer MEDICARE, SELFPAY ==
[2021-09-29 20:27] VITALS: BP 145/105; PULSE 89; RESP 16; TEMP 36.8; O2SAT 99; BMI 29.8
[2021-09-29 20:48] LABS: Absolute Lymphocyte Count 0.86 X10^3/uL (0.83-4.51); Absolute Neutrophil Count 8.3 X10^3/uL (2.0-7.7); Basophil# 0.03 X10^3/uL; Basophil% 0.3 % (0-1); Hematocrit 46.9 % (37-47); Hemoglobin 15.7 g/dL (12.0-15.0); Lymphocyte # 0.86 X10^3/ul (0.83-4.51); Lymphocyte % 8.9 % (19-41); Mean Corp Hgb Conc 33.5 g/dL (32-36); Mean Corpuscular Hgb 28.2 pg (27.0-32.0); Mean Corpuscular Volume 84.4 fL (81-99); Monocyte# 0.45 X10^3/uL; Monocyte% 4.6 % (0-10); NRBC Flagged by Analyzer 0 % (0-5); Neutrophil # 8.33 X10^3/uL (2.7-7.7); Neutrophil % 85.8 % (47-70); Platelet Count 328 K/mm3 (150-450); RBC Distribution Width CV 13.3 % (11.6-14.6); RBC Distribution Width SD 41.2 fl (35.1-43.9); Red Blood Count 5.56 M/mm3 (4.2-5.4); White Blood Count 9.7 K/mm3 (4.4-11.0)
[2021-09-29 21:06] LABS: ALB/GLOB Ratio 1.1 RATIO (0.9-2.4); AST(SGOT) 15 U/L (15-37); Alanine Aminotransfer ALT/SGPT 17 U/L (13-56); Alkaline Phosphatase 99 U/L (45-117); Anion Gap 6 (5-15); BUN 20 mg/dL (7-18); BUN/Creat Ratio 24.3 RATIO (10-20); Calcium,Total 10.5 mg/dL (8.5-10.1); Chloride 103 mmol/L (98-107); Creatinine, Serum 0.82 mg/dL (0.55-1.02); EST Glomerular Filtration Rate 70 mL/min (>60); Est Glom Filt Rate - Afr Amer 85 mL/min (>60); Estimated Creatinine Clearance 46.96 ml/min; Globulin 3.7 g/dL (2.2-4.2); Glucose 143 mg/dL (74-106); Protein, Total 7.7 g/dL (6.4-8.2); Sodium Level 136 mmol/L (136-145)
[2021-09-29 21:21] VITALS: BP 157/76; PULSE 77; RESP 16; TEMP 36.8; O2SAT 100
--- NOTE | 2021-09-29 21:45 | EDS_ITS ---
HPI History of Present Illness Chief Complaint: Nausea/Vomiting Informant: patient Onset/Context/Timing Onset: Today Narrative Narrative: Patient presents with vomiting since 4 AM this morning states was going every hour stop 2 hours ago. No hematemesis. No diarrhea. Had normal bowel movement 3 to 4 hours ago. Positive flatus. No abdominal surgery history. Reports she thinks she ate bad soup stating it did taste different. No fevers. No abdominal pain. Has not ate or drank anything since symptoms occurring. Reports mild headache since the vomiting. [facility] Medical History Hypertension Home Medications minocycline [Minocin] 50 mg PO DAILY 10/22/13 [History Last Taken Unknown] simvastatin 20 mg PO QHS 10/22/13 [History Last Taken Unknown] timolol maleate 1 drp EACH EYE BID 11/01/13 [History Last Taken Unknown] lisinopril 10 mg PO DAILY 04/10/19 [History Last Taken Unknown] ondansetron 4 mg PO Q6H PRN #10 tab 09/30/21 [Rx Last Taken Unknown] Allergy/AdvReac Type Severity Reaction Status Date / Time morphine AdvReac Intermediate Inflammation Verified 04/10/19 10:54 of vein Social History Smoking Status: Former smoker ROS ROS ED Constitutional Constitutional ED: Denies chills, fever(s) or sweats Eyes Eyes: Denies change in vision ENT ENT ED: Denies dysphagia or sore throat Cardiovascular Cardiovascular: Denies chest pain, leg edema, palpitations or racing heartbeat Respiratory/Chest Respiratory/Chest: Denies cough, dyspnea or dyspnea on exertion Gastrointestinal Gastrointestinal: Reports nausea and vomiting; Denies abdominal pain or diarrhea Genitourinary Genitourinary ED: Denies dysuria, hematuria or urinary frequency Musculoskeletal Musculoskeletal: Denies back pain, extremity pain or neck pain Integumentary Denies rash or wounds Neurologic Neurologic: Reports headache(s); Denies paresthesias or weakness EXAM Physical Exam Const Vital Signs: 09/29/21 20:27 09/29/21 21:21 09/29/21 23:39 Temperature 98.2 F 98.2 F Temperature Source Temporal Temporal Pulse Rate 89 77 75 Respiratory Rate 16 16 13 Blood Pressure 145/105 H 157/76 H 170/75 H Blood Pressure Mean 118 103 106 Pulse Ox 99 100 98 Oxygen Delivery Method Room Air Room Air Room Air Positive well nourished and well developed General Appearance ED: well developed and NAD HEENT Reports dry mucous membranes normocephalic and atraumatic Mouth ED: Yes dry mucous membranes Mouth: dry mucous membranes Eyes PERRL, EOMs intact bilaterally and conjunctivae normal General Eye ED: Yes normal appearance of both eyes Neck no lymphadenopathy and supple Neck Narrative: No meningismus General: Negative for tenderness Chest Wall Chest: Negative for tenderness Resp normal respiratory effort and normal air movement Effort and Inspection: symmetric chest movement; Negative for respiratory distress Cardio regular rate, regular rhythm and no murmurs Peripheral Pulses: pulses 2+ throughout GI normal to inspection, nondistended, normoactive bowel sounds and non-tender GI Narrative: Negative De Dios's or McBurney's tenderness. Auscultation: normoactive bowel sounds Palpation: Negative for guarding or rebound tenderness present Back/Spine no CVA tenderness and no thoracic nor lumbar tenderness Extremity normal to inspection General Extremety ED: Negative for edema or tenderness General Extremity: Negative for edema Neuro oriented x3, CN's II-XII intact bilaterally and no sensory deficits noted Sensorium / Orientation: awake and alert Skin no rashes or lesions noted and no wounds MDM MDM MDM Narrative Medical decision making narrative: Patient vital signs stable clinical dehydration on exam. Labs obtained from triage normal white count creatinine 0.82 sodium 136. Nontender abdomen. History reported eating bad soup. She had no diarrhea. She given IV fluids Zofran. Toradol given for headache symptoms. She has no meningismal findings. Reevaluation nausea improved she is able to tolerate oral intake. Reports persistent headache, additional Tylenol was given. Take-home Zofran was given to use at home along with a prescription. Return precautions discussed. All questions answered. Patient is being discharged under pandemic conditions under declared global, national and state disaster activation, with limited medical resources. Patient and community understands this. Results discussed in layman's terms to the patient satisfaction. All questions answered in layman's terms. Patient understands importance of follow-up care as directed. Patient has been instructed to return to the ED immediately if new symptoms, problems, or questions occur. We mutually agree with the plan of disposition. The patient understand that they may call or return with any questions or concerns at any time. Lab Data Attestation: I reviewed the patient's lab results. Labs: Laboratory Results - last 24 hr 09/29/21 09/29/21 20:40 20:40 WBC 9.7 RBC 5.56 H Hgb 15.7 H Hct 46.9 MCV 84.4 MCH 28.2 MCHC 33.5 RDW Std Deviation 41.2 RDW Coeff of [place] 13.3 Plt Count 328 MPV 10.0 Immature Gran % (Auto) 0.400 Neut % (Auto) 85.8 H Lymph % (Auto) 8.9 L [place] % (Auto) 4.6 Eos % (Auto) 0.0 Baso % (Auto) 0.3 Absolute Neuts (auto) 8.3 H Absolute Lymphs (auto) 0.86 Nucleated RBC % 0 Sodium 136 Potassium 4.0 Chloride 103 Carbon Dioxide 27.0 Anion Gap 6 BUN 20 H Creatinine 0.82 Estim Creat Clear Calc 46.96 Est GFR (MDRD) Af Amer 85 Est GFR (MDRD) Non-Af 70 BUN/Creatinine Ratio 24.3 H Glucose 143 H Calcium 10.5 H Total Bilirubin 0.80 AST 15 ALT 17 Alkaline Phosphatase 99 Total Protein 7.7 Albumin 4.0 Globulin 3.7 Albumin/Globulin Ratio 1.1 Discharge Plan Triage Chief Complaint: Nausea/Vomiting ED Provider: Tyshawn Serna Dx/Rx/DC Orders Clinical Impression: Nausea and vomiting, Headache, Dehydration Instructions: Dehydration, Understanding Headache Pain, ED Vomiting (Adult) Prescriptions: New ondansetron 4 mg tablet,disintegrating 4 mg PO Q6H PRN (Reason: nausea and vomiting) Qty: 10 RF: 0 No Action simvastatin 20 MG tablet 20 mg PO QHS RF: 0 minocycline [Minocin] 50 MG capsule 50 mg PO DAILY RF: 0 timolol maleate 1 DROP drops 1 drp Each Eye BID RF: 0 lisinopril 10 MG tablet 10 mg PO DAILY RF: 0 Primary Care Provider: Harley Harding Referrals: Harley Harding MD [Primary Care Provider] - 3-5 Days if not improving Disposition Disposition: Home, Self Care
[2021-09-29] MEDS: 0.9% Normal Saline 1,000 ML 999 ML IV (22:35)
[2021-09-29] MEDS: Ondansetron 4 MG/2 ML Vial IV (22:36)
[2021-09-29] MEDS: Ketorolac 15 MG/ML Vial IV (22:36)
[2021-09-29 23:39] VITALS: BP 170/75; PULSE 75; RESP 13; O2SAT 98
[2021-09-30] MEDS: Ondansetron ODT 4 MG Tablet PO (00:49)
[2021-09-30] MEDS: Ibuprofen 200 MG Tablet 400 MG PO (01:11)
[2021-09-30 01:21] VITALS: BP 184/72; PULSE 81; RESP 23; O2SAT 97
== END 2021-09-30 01:22 | disposition home or self-care (01) ==
PROVIDERS: Emergency Provider Emergency Medicine; PCP Family Medicine
DX: R11.2 Nausea with vomiting, unspecified (principal); E86.0 Dehydration; R51.9 Headache, unspecified; I10 Essential (primary) hypertension; Z79.899 Other long term (current) drug therapy; Z87.891 Personal history of nicotine dependence
CPT/HCPCS: 80053; 85025; 96361; 96374; 96375; 99284; J7030; A4216; J2405

== ENCOUNTER → 2022-04-19 | Outpatient (CLI) | payer MEDICARE, SELFPAY | END | disposition home or self-care (01) | LOC: LABSPEC 09:45 | PROVIDERS: PCP Family Medicine; Visit Provider Family Medicine | DX: Z20.822 Contact with and (suspected) exposure to COVID-19 (principal) | CPT/HCPCS: 87635; U0003; U0005 ==

== ENCOUNTER 2022-05-05 13:38 | Inpatient (IN) | payer MEDICARE, SELFPAY ==
[2022-05-05] VITALS (17 sets, daily range): BP systolic 149–232; BP diastolic 46–72; PULSE 58–82; RESP 13–24; TEMP 36.1–36.3; O2SAT 94–100; BMI 29.3
--- NOTE | 2022-05-05 13:52 | EDS_ITS ---
HPI History of Present Illness Chief Complaint: Back Informant: patient Onset/Context/Timing Onset: Today Context: Gradual Onset Timing: Continuous Quality: Aching and Burning Location: Lumbar Worsened by: improves with Nothing Relieved by: Nothing Associated Symptoms Associated Symptoms: Negative for Numbness, Tingling, Radiation to Right Leg, Radiation to Left Leg, Fever, Abdominal Pain, Dysuria, Unable to Ambulate, Unable to Transfer, Urinary Retention, Urinary Incontinence, Constipation and Fecal Incontinence Narrative Narrative: Patient presents with back pain, nausea, and vomiting that began today approximately 1 hour prior to arrival. Patient states she started having nausea and vomiting that developed low back pain. Patient states her pain is along her waistline. Patient denies any radiation of the pain. Patient describes it as burning and aching. Patient states nothing makes it better nothing makes it worse. Patient denies any paresthesias or weakness. Patient denies any bowel or bladder changes. Patient denies any saddle anesthesia. [facility] Medical History Hypertension Home Medications minocycline [Minocin] 50 mg PO DAILY 10/22/13 [History Last Taken Unknown] simvastatin 20 mg PO QHS 10/22/13 [History Last Taken Unknown] timolol maleate 1 drp EACH EYE DAILY 11/01/13 [History Last Taken Unknown] lisinopril 10 mg PO DAILY 04/10/19 [History Last Taken Unknown] Allergy/AdvReac Type Severity Reaction Status Date / Time morphine AdvReac Intermediate Inflammation Verified 04/10/19 10:54 of vein Social History Smoking Status: Former smoker ROS ROS ED Constitutional Constitutional ED: Reports chills and subjective; Denies fever(s) Eyes Eyes: Denies blurry vision or change in vision ENT ENT ED: Denies rhinorrhea or sore throat Cardiovascular Cardiovascular: Denies chest pain or palpitations Respiratory/Chest Respiratory/Chest: Denies cough or dyspnea Gastrointestinal Gastrointestinal: Reports nausea and vomiting Genitourinary Genitourinary ED: Denies dysuria or hematuria Musculoskeletal Musculoskeletal: Reports back pain; Denies neck pain Integumentary Denies abscess or rash Neurologic Neurologic: Denies headache(s) or weakness Allergic/Immunologic Allergic/Immunologic ED: Denies mouth swelling or urticaria EXAM Physical Exam Const Vital Signs: 05/05/22 13:39 05/05/22 13:44 05/05/22 15:38 Temperature 96.9 F L Temperature Source Temporal Pulse Rate 69 58 L Respiratory Rate 16 24 H Blood Pressure 227/72 H 189/70 H Blood Pressure Mean 123 109 Pulse Ox 100 96 Oxygen Delivery Method Room Air Room Air 05/05/22 17:00 05/05/22 19:38 05/05/22 20:03 Temperature Temperature Source Pulse Rate 60 74 64 Respiratory Rate 15 16 13 Blood Pressure 232/67 H 214/61 H 171/55 H Blood Pressure Mean 122 112 93 Pulse Ox 97 97 99 Oxygen Delivery Method Room Air Room Air Room Air 05/05/22 20:31 Temperature Temperature Source Pulse Rate 65 Respiratory Rate 18 Blood Pressure 197/63 H Blood Pressure Mean 107 Pulse Ox 100 Oxygen Delivery Method Room Air Positive well nourished and well developed General Appearance ED: well developed HEENT Reports moist mucous membranes Neck supple and no JVD Resp normal respiratory effort and clear to auscultation bilaterally Cardio regular rate, regular rhythm and no murmurs GI normal to inspection, nondistended, normoactive bowel sounds and non-tender Palpation: soft Back/Spine normal to inspection Back/Spine Narrative: There is tenderness over the left lumbosacral junction and sacroiliac area. There is no edema or ecchymosis. There is no bony crepitance or step-off noted. There is good range of motion. Lumbar Spine / Lower Back: straight leg raise negative bilaterally; Negative for ROM limited Extremity normal to inspection General Extremety ED: Negative for edema or tenderness General Extremity: Negative for edema Neuro oriented x3, CN's II-XII intact bilaterally and no sensory deficits noted Sensorium / Orientation: alert Motor Exam: strength 5/5 throughout Psych mental status grossly normal MDM MDM MDM Narrative Medical decision making narrative: Patient was given a dose of [place] and Zofran initially. Patient was given a dose of labetalol. EKG was obtained. On my interpretation, it showed a sinus bradycardia with a rate of 57. TX interval, QRS interval, and QTc intervals were all normal. Fischer was normal. There are no acute ST or T wave changes. CBC was within normal limits. Comprehensive metabolic profile was within normal limits. High-sensitivity troponin was normal. Urinalysis shows 25-50 red blood cells but 0 white blood cells. Patient was still having elevated blood pressures. Patient was given a dose of clonidine. Patient's blood pressure did not improve with this. Patient was given a second dose of clonidine. Patient was still hypertensive. Patient was given a dose of hydralazine. Because of the persistent hypertension and back pain, CTA of the abdomen and pelvis was ordered. There is no evidence of aortic dissection. There is distended stomach and duodenum consistent with adynamic ileus versus early or partial small bowel obstruction. The distal bowel is decompressed. Patient's blood pressure was still 202 systolic. Because of this, patient was started on a Cardene drip. Case was discussed with the hospitalist. He will admit the patient to ICU. He recommended consulting Dr. Drew from general surgery. I discussed the case with him. He recommended obtaining a lactate and placing an NG tube. This was ordered. Patient understood and was agreeable with the plan. All questions were answered. Lab Data Attestation: I reviewed the patient's lab results. Labs: Laboratory Results - last 24 hr 05/05/22 05/05/22 05/05/22 13:54 13:54 14:47 WBC 4.9 RBC 4.80 Hgb 13.3 Hct 40.9 MCV 85.2 MCH 27.7 MCHC 32.5 RDW Std Deviation 42.0 RDW Coeff of [place] 13.5 Plt Count 227 MPV 9.7 Immature Gran % (Auto) 0.400 Neut % (Auto) 60.5 Lymph % (Auto) 27.0 [place] % (Auto) 7.8 Eos % (Auto) 3.9 Baso % (Auto) 0.4 Absolute Neuts (auto) 3.0 Absolute Lymphs (auto) 1.32 Nucleated RBC % 0 Sodium 142 Potassium 4.4 Chloride 110 H Carbon Dioxide 27.0 Anion Gap 5 BUN 25 H Creatinine 0.79 Estim Creat Clear Calc 40.00 Est GFR (MDRD) Af Amer 89 Est GFR (MDRD) Non-Af 74 BUN/Creatinine Ratio 31.7 H Glucose 110 H Calcium 9.6 Total Bilirubin 0.70 AST 17 ALT 22 Alkaline Phosphatase 79 Troponin I High Sens 7 Total Protein 6.5 Albumin 3.7 Globulin 2.8 Albumin/Globulin Ratio 1.3 Urine Color Yellow Urine Clarity Sl. Cloudy Urine pH 6.5 Ur Specific [place] 1.015 Urine Protein 30 H Urine Glucose (UA) Normal Urine Ketones Negative Urine Occult Blood 250 H Urine Nitrite Negative Urine Bilirubin Negative Urine Urobilinogen Normal Ur Leukocyte Esterase Negative Urine RBC 25-50 SEEN Urine WBC 0 SEEN Ur Squamous Epith Cells 0-5 SEEN Urine Bacteria 1+ Urine Mucus 0 SEEN Radiography Diagnostic Testing: Clinical Impression(s) from Imaging Studies Abdomen/Pelvis CTA 05/05/22 19:13 IMPRESSION: 1. Diffuse aortic calcification, no evidence of aneurysmal dilatation fixed defects or dissection. 2. Ostial calcification at the origin of the splanchnic vessels as well as the renal arteries bilaterally without josselyn stenosis. 3. Iliac and femoral calcifications noted without stenosis to level the proximal thigh bilaterally. 4. Multiple hepatic cysts. There is a cyst in the LEFT hepatic lobe with coarse capsular calcification. No solid masses noted. 5. Cholelithiasis without evidence of pericholecystic fluid or duct dilatation. 6. Fluid-filled distended stomach, distended duodenum and short segment of jejunum with maximal transverse dimension of the jejunum at 4.5 cm. Focal adynamic ileus is a consideration versus early or partial SBO or developing closed-loop.. The distal bowel is decompressed. 7. Renal cysts without evidence of ureteral stones or evidence of obstructive uropathy. 8. Lumbar spondylosis. Electronically Signed: Feroz Mo MD at 20:49 EDT , EKG Initial EKG: Attestation: I personally reviewed and interpreted this EKG as follows: Interpretation: No Acute Injury Pattern and Sinus Bradycardia (57) Discharge Plan Dx/Rx/DC Orders Clinical Impression: Hypertensive urgency, Adynamic ileus Disposition Disposition: Acute Care Hospital [facility]
--- NOTE | 2022-05-05 13:56 | EKG12_ITS ---
Test Reason : Blood Pressure : / mmHG Vent. Rate : 057 BPM Atrial Rate : 057 BPM P-R Int : 174 ms QRS Dur : 106 ms QT Int : 426 ms P-R-T Axes : 073 -23 059 degrees QTc Int : 414 ms Sinus bradycardia Otherwise normal ECG Confirmed by JAYCE NUNEZ, MEMO ([id number]), editor map JONA RICHARDSON ([id number]) on 05/09/2022 7:26:42 AM Referred By: KALEB Confirmed By:MEMO EDUARDO MD
[2022-05-05 14:05] LABS: Absolute Lymphocyte Count 1.32 X10^3/uL (0.83-4.51); Basophil# 0.02 X10^3/uL; Basophil% 0.4 % (0-1); Eosinophil# 0.19 X10^3/uL; Eosinophils% 3.9 % (0-5); Hematocrit 40.9 % (37-47); Hemoglobin 13.3 g/dL (12.0-15.0); Lymphocyte # 1.32 X10^3/ul (0.83-4.51); Mean Corp Hgb Conc 32.5 g/dL (32-36); Mean Corpuscular Hgb 27.7 pg (27.0-32.0); Mean Corpuscular Volume 85.2 fL (81-99); Mean Platelet Vol. 9.7 fl (6.2-12.0); Monocyte# 0.38 X10^3/uL; Monocyte% 7.8 % (0-10); NRBC Flagged by Analyzer 0 % (0-5); Neutrophil # 2.96 X10^3/uL (2.7-7.7); Neutrophil % 60.5 % (47-70); Platelet Count 227 K/mm3 (150-450); RBC Distribution Width CV 13.5 % (11.6-14.6); White Blood Count 4.9 K/mm3 (4.4-11.0)
[2022-05-05] MEDS: Labetalol (Prefilled) 20 MG/4 ML 10 MG IV (14:05)
[2022-05-05] MEDS: Ondansetron 4 MG/2 ML Vial IV ×3 (14:05→21:39)
[2022-05-05] MEDS: HYDROcodone Bitartrate/Apap 5/325 Tablet PO (14:05)
[2022-05-05 14:24] LABS: ALB/GLOB Ratio 1.3 RATIO (0.9-2.4); AST(SGOT) 17 U/L (15-37); Alanine Aminotransfer ALT/SGPT 22 U/L (13-56); Albumin, Serum 3.7 g/dL (3.2-5.0); Alkaline Phosphatase 79 U/L (45-117); Anion Gap 5 (5-15); BUN 25 mg/dL (7-18); BUN/Creat Ratio 31.7 RATIO (10-20); Calcium,Total 9.6 mg/dL (8.5-10.1); Chloride 110 mmol/L (98-107); Creatinine, Serum 0.79 mg/dL (0.55-1.02); EST Glomerular Filtration Rate 74 mL/min (>60); Est Glom Filt Rate - Afr Amer 89 mL/min (>60); Globulin 2.8 g/dL (2.2-4.2); Glucose 110 mg/dL (74-106); Potassium 4.4 mmol/L (3.5-5.1); Protein, Total 6.5 g/dL (6.4-8.2); Sodium Level 142 mmol/L (136-145); Troponin-I HS 7 pg/mL (3.0-54.0)
[2022-05-05 14:51] LABS: Mucous, Urine 0 SEEN /hpf (<or=2+); White Blood Cells 0 SEEN /hpf (0-5)
[2022-05-05 14:57] LABS: Color, Urine Yellow (Yellow); Glucose, Dipstick Normal (Normal); Ketone-Dipstick Negative (Negative); Leukocyte Esterase-Dipstick Negative /ul (Negative); Nitrite-Dipstick Negative (Negative); Occult Blood-Urine 250 /ul (Negative); Protein-Dipstick 30 mg/dl (Negative); Specific Gravity, Urine 1.015 (1.002-1.030); Urine Bilirubin Dipstick Negative (Negative); Urine Clarity Sl. Cloudy (Clear); Urine Urobilinogen Normal (Normal); Urine pH 6.5 (5.0 - 8.0)
[2022-05-05 15:14] LABS: Bacteria 1+ /hpf (None Seen); Red Blood Cells-Urine 25-50 SEEN /hpf (0-5); Squamous Epithelial Cells - UA 0-5 SEEN /hpf (5-10)
[2022-05-05] MEDS: cloNIDine HCl 0.1 MG Tablet PO ×2 (16:07→17:16)
[2022-05-05] MEDS: proMETHazine 25 MG/ML Syringe 6.25 MG IM (18:34)
[2022-05-05] MEDS: hydrALAZINE 20 MG/ML Vial 5 MG IV (18:35)
--- NOTE | 2022-05-05 19:13 | CT_ITS ---
INDICATION: hypertension -- Rule out aortic dissection EXAMINATION: CTA OF THE ABDOMEN AND PELVIS WITH IV CONTRAST CTA Abdomen and Pelvis WO/W Contrast Injection TECHNIQUE: Helically acquired images were obtained of the abdomen and pelvis following IV contrast. A dose lowering technique was used using automated exposure control, adjustment of mA and/or kV according to the patient''s size and the use of iterative reconstruction technique Postcontrast imaging, planar and 3-dimensional reconstructions obtained. Pre and postcontrast imaging obtained. IV Contrast dosage and agent: 100 mL [id number]-370 Oral contrast: None. Radiation Dose (provided by facility) CTDIvol (28.19 ) mGy, DLP ( 997.90) mGy-cm COMPARISON: None. FINDINGS: CTA ANGIOGRAM: ABDOMINAL AORTA: Diffuse aortic calcifications are present however no aneurysmal dilatation filling defects or dissection. No obstruction. VISCERAL VESSELS: There is normal orientation of the origin of the celiac and SMA without focal stenosis or occlusion. Normal patency of the visualized proximal [place]. Ostial calcifications are present without evidence of stenosis. RENAL ARTERIES: No stenosis or occlusion bilaterally. Normal patency of the renal arteries bilaterally. Ostial calcifications are present without evidence of stenosis. ILIAC VESSELS: Diffuse iliac calcifications bilaterally without aneurysmal dilatation or hemodynamically significant stenosis. RIGHT LOWER EXTREMITY: There is normal patency of the proximal RIGHT femoral arterial tree including the visualized common femoral artery, deep femoral artery, and the proximal SFA. Moderate calcification present. LEFT LOWER EXTREMITY: There is normal patency of the proximal LEFT femoral arterial tree including the visualized common femoral artery, deep femoral artery, and the proximal SFA. Moderate calcification noted. CT ABDOMEN AND PELVIS: LOWER THORAX: Lungs are clear. HEPATOBILIARY: Liver: Liver has normal configuration, however multiple cysts are present largest is within the LEFT hepatic lobe measuring approximately 4.8 x 4.4 cm. Several smaller cysts are present. There is a cyst with coarse capsular calcification along the anterior aspect of the LEFT hepatic lobe measuring 2.5 x 2.7 cm. No solid masses noted. No ductal dilatation.. Gallbladder: Gallbladder is distended, there is a calcification within the gallbladder neck measuring approximately 2.4 x 1.7 cm. No pericholecystic fluid. No ductal dilatation. Pancreas: Pancreas is normal size configuration and density. No mass is noted. Spleen: Spleen has normal configuration, there are however several small cysts along the anterior aspect the spleen, largest measuring approximately 1.1 x 1.1 cm.. BOWEL: Stomach: Moderate distention the stomach which is fluid-filled. Bowel: 1. There is a short segment proximal small bowel/jejunum with significant distention, maximal transverse dimension of approximately 4.5 cm. Remaining bowel segments have normal appearance. 2. Moderate amount of formed stool within the colon. No evidence of obstruction. Diverticulosis without evidence diverticulitis. Appendix: The visualized appendix is normal appearance.: GENITOURINARY: Adrenals: Both adrenal glands are normal in size, no masses or abnormal enhancement noted.. Kidneys: Kidneys have normal configuration, there is a moderate-sized cyst in the RIGHT kidney, measuring approximately 1.9 x 1.9 cm. There is mild scar in the inferior pole LEFT kidney. Small calcification is present. No evidence of ureteral stones or CT evidence of obstructive uropathy.. Bladder: Normal Pelvic organs: The visualized pelvic organs are normal in size and configuration. No masses or adenopathy noted. RETROPERITONEUM: There is normal appearance of the abdominal aorta and inferior vena cava. No evidence of retroperitoneal or para-aortic masses fluid collections or adenopathy. PERITONEAL CAVITY: No ascites noted ANTERIOR ABDOMINAL WALL: There is a small periumbilical fat-containing hernia. BONES AND SOFT TISSUES: Mild lumbar spondylosis, minimal grade 1 anterolisthesis of L4 and L5 and L5 on S1. No distinct pars defects noted. OTHER: None CT/CT ANGIO ABD&PEL W/O&W/DYE IMPRESSION: 1. Diffuse aortic calcification, no evidence of aneurysmal dilatation fixed defects or dissection. 2. Ostial calcification at the origin of the splanchnic vessels as well as the renal arteries bilaterally without josselyn stenosis. 3. Iliac and femoral calcifications noted without stenosis to level the proximal thigh bilaterally. 4. Multiple hepatic cysts. There is a cyst in the LEFT hepatic lobe with coarse capsular calcification. No solid masses noted. 5. Cholelithiasis without evidence of pericholecystic fluid or duct dilatation. 6. Fluid-filled distended stomach, distended duodenum and short segment of jejunum with maximal transverse dimension of the jejunum at 4.5 cm. Focal adynamic ileus is a consideration versus early or partial SBO or developing closed-loop.. The distal bowel is decompressed. 7. Renal cysts without evidence of ureteral stones or evidence of obstructive uropathy. 8. Lumbar spondylosis. Electronically Signed: Feroz Mo MD at 20:49 EDT ,
--- NOTE | 2022-05-05 19:39 | ED.RN ---
pt vomited aprox 400ml in emesis bag, dr notified
--- NOTE | 2022-05-05 21:25 | PCM.HP.STD ---
HPI - General General Date of Admission: 05/05/22 HPI Narrative ZACKARY HAMILTON, is a 86 F with a significant history of abdominal cancer s/p resection; tonsillectomy; cyst removal from throat; breast biopsy x2; bilateral knee replacement; mass resection from gluteal folds; D&C and hypertension who presents to the emergency department with excruciating pain at her waistline. She denies any aggravating factors to the pain. Pain medicine that she received at the emergency department took her pain completely away. She described the pain as a worrying ache. She reports nausea. She reports a history of episodic nausea and as she felt that her waistline pain was a premonition to her nausea and vomiting. Prior to coming to the emergency department she had not vomited. However at the emergency department she had an episode of vomiting. She report that her last bowel movement was on the same day of presentation but she felt she did not have a full bowel movements at that time. At emergency department she was given doses of clonidine; and hydralazine IV; however her blood pressure remained elevated so Cardene drip was ordered. Cardene drip was ordered. She is on home lisinopril that she reports compliance with. She takes her lisinopril in the evening. And the last time as she took her lisinopril was a day (evening) before presentation. Because of her back pain emergent department doctor was a concern of aortic dissection. So abdomen pelvis CTA was obtained. The abdomen and pelvis CTA showed adynamic/partial small bowel obstruction. [facility] Medical History (Updated 05/05/22 @ 21:[address] Dave Ley MD) FH: total knee replacement Hypertension Home Medications minocycline [Minocin] 50 mg PO DAILY 10/22/13 [History Last Taken Unknown] simvastatin 20 mg PO QHS 10/22/13 [History Last Taken Unknown] timolol maleate 1 drp EACH EYE DAILY 11/01/13 [History Last Taken Unknown] lisinopril 10 mg PO DAILY 04/10/19 [History Last Taken Unknown] Allergy/AdvReac Type Severity Reaction Status Date / Time morphine AdvReac Intermediate Inflammation Verified 04/10/19 10:54 of vein Family History adopted adopted Surgical History H/O breast biopsy H/O removal of cyst History of abdominal surgery Social History Smoking Status: Former smoker ROS ROS Narrative Pertinent positives and pertinent negatives as noted in HPI. All other systems were reviewed and are negative. Vital Signs Vital Signs Vital Signs: 05/05/22 13:39 05/05/22 13:44 05/05/22 15:38 Temperature 96.9 F L Temperature Source Temporal Pulse Rate 69 58 L Respiratory Rate 16 24 H Blood Pressure 227/72 H 189/70 H Blood Pressure Mean 123 109 Pulse Ox 100 96 Oxygen Delivery Method Room Air Room Air 05/05/22 17:00 05/05/22 19:38 05/05/22 20:03 Temperature Temperature Source Pulse Rate 60 74 64 Respiratory Rate 15 16 13 Blood Pressure 232/67 H 214/61 H 171/55 H Blood Pressure Mean 122 112 93 Pulse Ox 97 97 99 Oxygen Delivery Method Room Air Room Air Room Air 05/05/22 20:31 Temperature Temperature Source Pulse Rate 65 Respiratory Rate 18 Blood Pressure 197/63 H Blood Pressure Mean 107 Pulse Ox 100 Oxygen Delivery Method Room Air Weight Weight: 85 kg Body Mass Index (BMI) 29.3 Physical Exam Narrative Physical exam: General: Well-nourished, well-developed. Head: Normocephalic, atraumatic, no tenderness Eyes: Vision is grossly intact. EOMI ENT, no trauma, moist mucous membranes, no rhinorrhea Neck: Nontender, full range of motion, no spinal tenderness, deformities, step-off CVS: Regular rate and rhythm. S1-S2 present. No murmur, gallop or rub. Respiratory : clear to auscultation bilaterally, chest wall nontender, no wheezing Abdomen: Soft, nontender, nondistended, normal bowel sounds, no masses : Deferred Back: Nontender, no CVA tenderness, no midline spinal tenderness, deformities, step-offs Extremities: Nontender full range of motion, no trauma Skin: Normal color, no trauma, abrasions Neuro: Alert, oriented, cranial nerves II through XII grossly intact. Psychiatry: Normal mood. Normal affect. Not depressed. Not anxious. Results Lab / Micro Data Result Diagrams: 05/05/22 13:54 05/05/22 13:54 Labs: Laboratory Results - last 24 hr 05/05/22 13:54: WBC 4.9, RBC 4.80, Hgb 13.3, Hct 40.9, MCV 85.2, MCH 27.7, MCHC 32.5, RDW Std Deviation 42.0, RDW Coeff of [place] 13.5, Plt Count 227, MPV 9.7, Immature Gran % (Auto) 0.400, Neut % (Auto) 60.5, Lymph % (Auto) 27.0, [place] % (Auto) 7.8, Eos % (Auto) 3.9, Baso % (Auto) 0.4, Absolute Neuts (auto) 3.0, Absolute Lymphs (auto) 1.32, Nucleated RBC % 0 05/05/22 13:54: Sodium 142, Potassium 4.4, Chloride 110 H, Carbon Dioxide 27.0, Anion Gap 5, BUN 25 H, Creatinine 0.79, Estim Creat Clear Calc 40.00, Est GFR (MDRD) Af Amer 89, Est GFR (MDRD) Non-Af 74, BUN/Creatinine Ratio 31.7 H, Glucose 110 H, Calcium 9.6, Total Bilirubin 0.70, AST 17, ALT 22, Alkaline Phosphatase 79, Troponin I High Sens 7, Total Protein 6.5, Albumin 3.7, Globulin 2.8, Albumin/Globulin Ratio 1.3 05/05/22 14:47: Urine Color Yellow, Urine Clarity Sl. Cloudy, Urine pH 6.5, Ur Specific [place] 1.015, Urine Protein 30 H, Urine Glucose (UA) Normal, Urine Ketones Negative, Urine Occult Blood 250 H, Urine Nitrite Negative, Urine Bilirubin Negative, Urine Urobilinogen Normal, Ur Leukocyte Esterase Negative, Urine RBC 25-50 SEEN, Urine WBC 0 SEEN, Ur Squamous Epith Cells 0-5 SEEN, Urine Bacteria 1+, Urine Mucus 0 SEEN Radiology Impression Abdomen/Pelvis CTA 05/05/22 19:13 IMPRESSION: 1. Diffuse aortic calcification, no evidence of aneurysmal dilatation fixed defects or dissection. 2. Ostial calcification at the origin of the splanchnic vessels as well as the renal arteries bilaterally without josselyn stenosis. 3. Iliac and femoral calcifications noted without stenosis to level the proximal thigh bilaterally. 4. Multiple hepatic cysts. There is a cyst in the LEFT hepatic lobe with coarse capsular calcification. No solid masses noted. 5. Cholelithiasis without evidence of pericholecystic fluid or duct dilatation. 6. Fluid-filled distended stomach, distended duodenum and short segment of jejunum with maximal transverse dimension of the jejunum at 4.5 cm. Focal adynamic ileus is a consideration versus early or partial SBO or developing closed-loop.. The distal bowel is decompressed. 7. Renal cysts without evidence of ureteral stones or evidence of obstructive uropathy. 8. Lumbar spondylosis. Electronically Signed: Feroz Mo MD at 20:49 EDT , Assessment & Plan Assessment/Plan (1) Hypertensive urgency: (2) Adynamic ileus: PLAN: Hypertensive urgency Highest systolic blood pressure of 227 at the ED. Received multiple doses of antihypertensive at the emergency department. Started on clonidine drip with MAP goal of less than 85 at the ED and continued. Will admit intensive care unit. Patient cannot have p.o. meds secondary to nausea and vomiting. Adynamic ileus/partial small bowel obstruction Abdomen/pelvis CT was visualized and independent interpreted I agree with radiologist interpretation. ED doctor discussed case with general surgery who recommended NG tube and lactate level. NG tube will be placed at the ED. We will keep patient NPO. General surgery consult. Gentle IV hydration. Trend BMP Back pain Patient is allergic to morphine. Received [place] at the emergency department. As needed Dilaudid ordered. DVT prophylaxis SCDs ordered. Charges/Coding Visit Charges Inpatient E&M: 73600 Init Hosp L3
--- NOTE | 2022-05-05 21:32 | RAD_ITS ---
INDICATION: NG Insertion EXAMINATION/TECHNIQUE: X-RAY - XR Abdomen 1 View COMPARISON: None FINDINGS: Tubes and lines: 1. NG tube extends into the proximal stomach. BOWEL GAS PATTERN: Non-obstructive. No bowel or stomach distention. FREE AIR: Not assessed on a single supine view. ORGANOMEGALY: Not seen. CALCIFICATIONS: There is coarse density in the LEFT midabdomen, measuring approximately 2.1 x 1.5 cm in size. Cholelithiasis noted in the RIGHT upper quadrant. LOWER CHEST: No acute pathology. BONES AND SOFT TISSUES: No acute pathology. RAD/Abdomen Single View (Portable) IMPRESSION: 1. NG tube extends into the proximal stomach. 2. Coarse calcification in the LEFT mid abdomen measuring 2.1 x 1.5 cm in size in uncertain location, and was not clearly evident on recent CT. 3. Cholelithiasis is noted in the RIGHT upper quadrant.. Electronically Signed: Feroz Mo MD at 0:37 EDT ,
[2022-05-05] MEDS: Oxymetazoline 0.05% 1 SPRAY SPRAY.BTL 2 SPRAY NASAL (22:02)
[2022-05-05] MEDS: Lidocaine 2% Jelly 1 APPLIC Tube TOPICAL (22:03)
[2022-05-06] VITALS (24 sets, daily range): BP systolic 112–193; BP diastolic 45–76; PULSE 63–86; RESP 14–19; TEMP 36.6–37.1; O2SAT 96–100
[2022-05-06] MEDS: Lactated Ringers 1,000 ML 75 ML IV ×2 (00:17→13:24)
[2022-05-06 05:08] LABS: Absolute Lymphocyte Count 1.49 X10^3/uL (0.83-4.51); Absolute Neutrophil Count 4.9 X10^3/uL (2.0-7.7); Basophil# 0.02 X10^3/uL; Basophil% 0.3 % (0-1); Eosinophil# 0.03 X10^3/uL; Eosinophils% 0.4 % (0-5); Hematocrit 41.3 % (37-47); Hemoglobin 13.7 g/dL (12.0-15.0); Lymphocyte # 1.49 X10^3/ul (0.83-4.51); Lymphocyte % 21.2 % (19-41); Mean Corp Hgb Conc 33.2 g/dL (32-36); Mean Corpuscular Hgb 27.7 pg (27.0-32.0); Mean Corpuscular Volume 83.6 fL (81-99); Monocyte# 0.55 X10^3/uL; Monocyte% 7.8 % (0-10); NRBC Flagged by Analyzer 0 % (0-5); Neutrophil # 4.91 X10^3/uL (2.7-7.7); Platelet Count 290 K/mm3 (150-450); RBC Distribution Width CV 13.6 % (11.6-14.6); RBC Distribution Width SD 41.4 fl (35.1-43.9); Red Blood Count 4.94 M/mm3 (4.2-5.4)
[2022-05-06 05:22] LABS: Anion Gap 3 (5-15); BUN 20 mg/dL (7-18); BUN/Creat Ratio 22.3 RATIO (10-20); Calcium,Total 9.7 mg/dL (8.5-10.1); Chloride 105 mmol/L (98-107); EST Glomerular Filtration Rate 63 mL/min (>60); Est Glom Filt Rate - Afr Amer 77 mL/min (>60); Estimated Creatinine Clearance 44.44 ml/min; Glucose 109 mg/dL (74-106); Potassium 3.8 mmol/L (3.5-5.1); Sodium Level 140 mmol/L (136-145)
--- NOTE | 2022-05-06 07:23 | RAD_ITS ---
INDICATION: Follow-up SBO -- PER ORDERING DOCTOR- 1 HOUR IMAGE AND 6 HOUR IMAGE EXAMINATION/TECHNIQUE: 180 cc oral contrast was administered orally via NG tube to the patient. Total Fluoroscopic Time: 0 min Fluoroscopic Images: 6 COMPARISON: None. FINDINGS: [employer] image shows nonobstructive bowel gas pattern. There is an NG tube with tip in the stomach. No masses or strictures are identified. The mucosal pattern is unremarkable. There is normal motility. Reflux was not elicited. Contrast is seen within the large bowel within 1 hour. RAD/Small Bowel Series Only IMPRESSION: No obstruction. Electronically Signed: Edis Nash MD at 16:19 EDT ,
--- NOTE | 2022-05-06 07:28 | EX.PCM.CON.S ---
Assessment & Plan Assessment/Plan (1) Small intestine obstruction: PLAN: This is an 86-year-old female who presented with hypertensive urgency and left side/flank pain with rather incidentally noted evidence of a small bowel obstruction. Patient did have improvement of her blood pressure control once treatment was rendered for the small bowel obstruction with placement of the nasogastric tube. She has had greater than 1 L aspirated since placement. She denies any abdominal discomfort at this time, but also has not had any bowel function. Therefore would like to proceed with a small bowel series today. I have also added a PPI given evidence of irritation from her nasogastric tube. HPI Consult Data Date of Consult: 05/06/22 HPI Narrative HPI Narrative: ZACKARY HAMILTON, is a 86 F who presents to [facility] with complaints of left side/flank pain and hypertensive urgency. On CT imaging performed for rule out aortic dissection, patient was noted to have a dilated stomach, duodenum, and proximal jejunum. There was concern for adynamic ileus versus small bowel obstruction and surgery was thus consulted. Notably, patient had normal CBC and normal lactate. According to patient and nursing once prescribed nasogastric tube was passed, patient's nausea immediately dissipated and her blood pressure control improved significantly. Nursing reports a total output of greater than 1100 mL bilious fluid overnight from nasogastric tube. Patient denies any return of bowel function at this point with either flatus or bowel movements. 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 She details this to say that it was not involving any other structures and confirms that no bowel resection was required. She states that she generally has regular bowel movements (at least once per day), but does comment that her stools have been thinner for the last year and a half. She also communicates that she has had approximately 4 episodes of unexplained nausea and vomiting. None have required admission to the hospital, and she always blamed a foodborne illness on these experiences. She denies any history of colonoscopy. She denies any history of bleeding. There is no family history available given that she is adopted. [facility] Medical History (Updated 05/06/22 @ 07:[address] Luis Drew MD) FH: total knee replacement Hypertension Home Medications minocycline [Minocin] 50 mg PO DAILY 10/22/13 [History Last Taken Unknown] simvastatin 20 mg PO QHS 10/22/13 [History Last Taken Unknown] timolol maleate 1 drp EACH EYE DAILY 11/01/13 [History Last Taken Unknown] lisinopril 10 mg PO DAILY 04/10/19 [History Last Taken Unknown] Allergy/AdvReac Type Severity Reaction Status Date / Time morphine AdvReac Intermediate Inflammation Verified 04/10/19 10:54 of vein Family History adopted Surgical History H/O breast biopsy H/O removal of cyst History of abdominal surgery Social History Smoking Status: Former smoker Physical Exam Const alert, oriented x3 and no apparent distress GI GI Narrative: Nondistended, lower (infraumbilical) laparotomy scar, soft nontender to palpation x4 quadrants Lab / Micro Data Result Diagrams: 05/06/22 04:50 05/06/22 04:50 Labs: Laboratory Results - last 24 hr 05/05/22 13:54: WBC 4.9, RBC 4.80, Hgb 13.3, Hct 40.9, MCV 85.2, MCH 27.7, MCHC 32.5, RDW Std Deviation 42.0, RDW Coeff of [place] 13.5, Plt Count 227, MPV 9.7, Immature Gran % (Auto) 0.400, Neut % (Auto) 60.5, Lymph % (Auto) 27.0, [place] % (Auto) 7.8, Eos % (Auto) 3.9, Baso % (Auto) 0.4, Absolute Neuts (auto) 3.0, Absolute Lymphs (auto) 1.32, Nucleated RBC % 0 05/05/22 13:54: Sodium 142, Potassium 4.4, Chloride 110 H, Carbon Dioxide 27.0, Anion Gap 5, BUN 25 H, Creatinine 0.79, Estim Creat Clear Calc 40.00, Est GFR (MDRD) Af Amer 89, Est GFR (MDRD) Non-Af 74, BUN/Creatinine Ratio 31.7 H, Glucose 110 H, Calcium 9.6, Total Bilirubin 0.70, AST 17, ALT 22, Alkaline Phosphatase 79, Troponin I High Sens 7, Total Protein 6.5, Albumin 3.7, Globulin 2.8, Albumin/Globulin Ratio 1.3 05/05/22 14:47: Urine Color Yellow, Urine Clarity Sl. Cloudy, Urine pH 6.5, Ur Specific [place] 1.015, Urine Protein 30 H, Urine Glucose (UA) Normal, Urine Ketones Negative, Urine Occult Blood 250 H, Urine Nitrite Negative, Urine Bilirubin Negative, Urine Urobilinogen Normal, Ur Leukocyte Esterase Negative, Urine RBC 25-50 SEEN, Urine WBC 0 SEEN, Ur Squamous Epith Cells 0-5 SEEN, Urine Bacteria 1+, Urine Mucus 0 SEEN 05/05/22 21:40: Lactic Acid 1.0 05/06/22 04:50: WBC 7.0, RBC 4.94, Hgb 13.7, Hct 41.3, MCV 83.6, MCH 27.7, MCHC 33.2, RDW Std Deviation 41.4, RDW Coeff of [place] 13.6, Plt Count 290, MPV 10.0, Immature Gran % (Auto) 0.300, Neut % (Auto) 70.0, Lymph % (Auto) 21.2, [place] % (Auto) 7.8, Eos % (Auto) 0.4, Baso % (Auto) 0.3, Absolute Neuts (auto) 4.9, Absolute Lymphs (auto) 1.49, Nucleated RBC % 0 05/06/22 04:50: Sodium 140, Potassium 3.8, Chloride 105, Carbon Dioxide 32.0, Anion Gap 3 L, BUN 20 H, Creatinine 0.90, Estim Creat Clear Calc 44.44, Est GFR (MDRD) Af Amer 77, Est GFR (MDRD) Non-Af 63, BUN/Creatinine Ratio 22.3 H, Glucose 109 H, Calcium 9.7 Radiology Impression Abdomen/Pelvis CTA 05/05/22 19:13 IMPRESSION: 1. Diffuse aortic calcification, no evidence of aneurysmal dilatation fixed defects or dissection. 2. Ostial calcification at the origin of the splanchnic vessels as well as the renal arteries bilaterally without josselyn stenosis. 3. Iliac and femoral calcifications noted without stenosis to level the proximal thigh bilaterally. 4. Multiple hepatic cysts. There is a cyst in the LEFT hepatic lobe with coarse capsular calcification. No solid masses noted. 5. Cholelithiasis without evidence of pericholecystic fluid or duct dilatation. 6. Fluid-filled distended stomach, distended duodenum and short segment of jejunum with maximal transverse dimension of the jejunum at 4.5 cm. Focal adynamic ileus is a consideration versus early or partial SBO or developing closed-loop.. The distal bowel is decompressed. 7. Renal cysts without evidence of ureteral stones or evidence of obstructive uropathy. 8. Lumbar spondylosis. Electronically Signed: Feroz Mo MD at 20:49 EDT , KUB X-Ray 05/05/22 21:32 IMPRESSION: 1. NG tube extends into the proximal stomach. 2. Coarse calcification in the LEFT mid abdomen measuring 2.1 x 1.5 cm in size in uncertain location, and was not clearly evident on recent CT. 3. Cholelithiasis is noted in the RIGHT upper quadrant.. Electronically Signed: Feroz Mo MD at 0:37 EDT ,
--- NOTE | 2022-05-06 08:48 | PN.HOSP_ITS ---
Subjective Subjective Doing well, no issues overnight. Blood pressure is stable she does have an NG tube in and feels much better, denies any significant nausea or abdominal pain Objective Data Objective Data Vital Signs: Vital Signs Temp Pulse Resp BP Pulse Ox 97.9 F 69 14 175/60 H 98 05/06/22 04:00 05/06/22 07:00 05/06/22 07:00 05/06/22 07:00 05/06/22 07:50 Oxygen Delivery Method Room Air Weight: 178 lb 9.191 oz Body Mass Index (BMI) 29.3 Intake & Output: Intake and Output for Last 24 Hours 05/05/22 05/06/22 05/07/22 03:59 03:59 03:59 Intake Total 349.58 / 349.58 Output Total 900 / 900 850 / 850 Balance -550.42 / -550.42 -850 / -850 Lab / Micro Data Result Diagrams: 05/06/22 04:50 05/06/22 04:50 Labs: Laboratory Results - last 24 hr 05/05/22 13:54: WBC 4.9, RBC 4.80, Hgb 13.3, Hct 40.9, MCV 85.2, MCH 27.7, MCHC 32.5, RDW Std Deviation 42.0, RDW Coeff of Destin 13.5, Plt Count 227, MPV 9.7, Immature Gran % (Auto) 0.400, Neut % (Auto) 60.5, Lymph % (Auto) 27.0, Letcher % (Auto) 7.8, Eos % (Auto) 3.9, Baso % (Auto) 0.4, Absolute Neuts (auto) 3.0, Absolute Lymphs (auto) 1.32, Nucleated RBC % 0 05/05/22 13:54: Sodium 142, Potassium 4.4, Chloride 110 H, Carbon Dioxide 27.0, Anion Gap 5, BUN 25 H, Creatinine 0.79, Estim Creat Clear Calc 40.00, Est GFR (MDRD) Af Amer 89, Est GFR (MDRD) Non-Af 74, BUN/Creatinine Ratio 31.7 H, Glu cose 110 H, Calcium 9.6, Total Bilirubin 0.70, AST 17, ALT 22, Alkaline Phosphatase 79, Troponin I High Sens 7, Total Protein 6.5, Albumin 3.7, Globulin 2.8, Albumin/Globulin Ratio 1.3 05/05/22 14:47: Urine Color Yellow, Urine Clarity Sl. Cloudy, Urine pH 6.5, Ur Specific Starbuck 1.015, Urine Protein 30 H, Urine Glucose (UA) Normal, Urine Ke tones Negative, Urine Occult Blood 250 H, Urine Nitrite Negative, Urine Bilir ubin Negative, Urine Urobilinogen Normal, Ur Leukocyte Esterase Negative, Urine RBC 25-50 SEEN, Urine WBC 0 SEEN, Ur Squamous Epith Cells 0-5 SEEN, Urine Bacteria 1+, Urine Mucus 0 SEEN 05/05/22 21:40: Lactic Acid 1.0 05/06/22 04:50: WBC 7.0, RBC 4.94, Hgb 13.7, Hct 41.3, MCV 83.6, MCH 27.7, MCHC 33.2, RDW Std Deviation 41.4, RDW Coeff of Destin 13.6, Plt Count 290, MPV 10.0, Immature Gran % (Auto) 0.300, Neut % (Auto) 70.0, Lymph % (Auto) 21.2, Letcher % (Auto) 7.8, Eos % (Auto) 0.4, Baso % (Auto) 0.3, Absolute Neuts (auto) 4.9, Absolute Lymphs (auto) 1.49, Nucleated RBC % 0 05/06/22 04:50: Sodium 140, Potassium 3.8, Chloride 105, Carbon Dioxide 32.0, Anion Gap 3 L, BUN 20 H, Creatinine 0.90, Estim Creat Clear Calc 44.44, Est GFR (MDRD) Af Amer 77, Est GFR (MDRD) Non-Af 63, BUN/Creatinine Ratio 22.3 H, Glucose 109 H, Calcium 9.7 Radiography Diagnostic Testing: Radiology Impression Abdomen/Pelvis CTA 05/05/22 19:13 IMPRESSION: 1. Diffuse aortic calcification, no evidence of aneurysmal dilatation fixed defects or dissection. 2. Ostial calcification at the origin of the splanchnic vessels as well as the renal arteries bilaterally without josselyn stenosis. 3. Iliac and femoral calcifications noted without stenosis to level the proximal thigh bilaterally. 4. Multiple hepatic cysts. There is a cyst in the LEFT hepatic lobe with coarse capsular calcification. No solid masses noted. 5. Cholelithiasis without evidence of pericholecystic fluid or duct dilatation. 6. Fluid-filled distended stomach, distended duodenum and short segment of jejunum with maximal transverse dimension of the jejunum at 4.5 cm. Focal adynamic ileus is a consideration versus early or partial SBO or developing closed-loop.. The distal bowel is decompressed. 7. Renal cysts without evidence of ureteral stones or evidence of obstructive uropathy. 8. Lumbar spondylosis. Electronically Signed: Feroz Mo MD at 20:49 EDT , KUB X-Ray 05/05/22 21:32 IMPRESSION: 1. NG tube extends into the proximal stomach. 2. Coarse calcification in the LEFT mid abdomen measuring 2.1 x 1.5 cm in size in uncertain location, and was not clearly evident on recent CT. 3. Cholelithiasis is noted in the RIGHT upper quadrant.. Electronically Signed: Feroz Mo MD at 0:37 EDT , Physical Exam Const alert, oriented x3 and no apparent distress General Appearance: cooperative HEENT normocephalic and moist oral mucous membranes Eyes PERRL, EOMs intact bilaterally and conjunctivae normal Neck supple and no JVD Resp normal respiratory effort, no retractions and no use of accessory muscles Auscultation: Negative for crackles, rales, rhonchi or wheezes Cardio regular rate, regular rhythm, S1 normal heart sound, S2 normal heart sound and n o murmurs GI soft to palpation, non-tender and non-distended; Negative for hepatosplenomegaly Extremity no clubbing, cyanosis or edema Skin no rashes or lesions noted Neuro no focal motor deficits and no sensory deficits noted Psych affect normal Appearance: appropriate Assessment & Plan Assessment/Plan (1) Hypertensive urgency: (2) Adynamic ileus: PLAN: 1. Hypertensive urgency/HLD ? Hypertensive urgency resolved with treatment of her small bowel obstruction ? NG tube is in place with good drainage ? We will place her on as needed hydralazine as she is n.p.o. at the moment ? We will hold her simvastatin 2. Adynamic ileus versus small bowel obstruction ? Appreciate general surgery's input ? Continue with a diagnostic x-ray series today ? Continue with NG tube to low intermittent wall suction ? N.p.o. 3. Glaucoma ? Stable ? Continue with atenolol DVT: SCDs Charges/Coding Visit Charges Inpatient E&M: 93516 Subs Hosp L2
[2022-05-06] MEDS: hydrALAZINE 20 MG/ML Vial 10 MG IV (10:27)
[2022-05-06] MEDS: Timolol 0.5% 5ML OPTH.BTL 1 DRP EACH EYE (10:27)
--- NOTE | 2022-05-06 13:10 | CASEMGMT ---
RN CM Face to Face with patient for initial transition planning/care coordination assessment. RN CM introduced self and role at [facility]. Patient sitting in chair, alert and oriented. Patient willing to participate in assessment and is able to answer all questions appropriately. Care providers, pharmacy, and demographics verified. Patient wishes to discharge home, denies need for home health at this time. Patient states she has no further needs or concerns at this time. CM to follow for discharge planning needs that may arise. PCP: Mehdi Specialists: none Preferred Pharmacy: [facility] Insurance: [employer] Prescription Benefit: yes Living Will/HPOA: yes, Jorge Schultz LNOK: , son Living Arrangements: Patient lives with in a single story home with 4-5 steps to enter the home. Patient states she is independent at home. Transportation: self, , son DME/HHC: Patient states she has raised toilet and cane at home. No previous HHC or SNF. Disposition Plan: Patient to discharge home with family support and follow-up plans in place. Zita THAKUR, RN, CM
--- NOTE | 2022-05-06 15:25 | CHAPLAIN ---
Type of Pastoral Visit _x__ Initial Visit ___ Follow-up Visit ___ On-call Visit ___ General Patient Visit ___ Spiritual Assessment ___ Family Conference ___ Bereavement ___ Rapid Response ___ Code Blue ___ Other (describe below) Pastoral Care Referral From _x__ Patient ___ Family ___ Nurse ___ Physician ___ Scene Shifter ___ Licensed Retail Supervisor ___ Other (describe below) Sacrament/Intervention _x__ Active listening ___ Anointing ___ Caodaism ___ Bereavement ___ Communion _x__ Maryuri exploration ___ _x__ Life review _x__ Prayer ___ Reconciliation ___ Sacrament of Sick _x__ Supportive presence ___ Wedding ___ Other (describe below) Pastoral Comments spouse left the room shortly after this core rescuer arrived; pt is quite talkative and shares lots of life review and her philosophy of life and maryuri; pt welcomes presence and prayer of this core rescuer; when asked about needs the patient reveals some issues with her home life and speaks of how she is trying to deal with the situation; pt is expressive of thanks for listening and showing care and assistance
[2022-05-07] MEDS: Lactated Ringers 1,000 ML 75 ML IV (02:44)
[2022-05-07 02:59] VITALS: PULSE 75
[2022-05-07 03:00] VITALS: BP 175/61; PULSE 69; RESP 18; TEMP 37.1; O2SAT 97
[2022-05-07 06:09] LABS: Absolute Lymphocyte Count 1.98 X10^3/uL (0.83-4.51); Absolute Neutrophil Count 3.7 X10^3/uL (2.0-7.7); Basophil# 0.03 X10^3/uL; Basophil% 0.5 % (0-1); Eosinophil# 0.21 X10^3/uL; Eosinophils% 3.2 % (0-5); Hemoglobin 12.1 g/dL (12.0-15.0); Lymphocyte # 1.98 X10^3/ul (0.83-4.51); Lymphocyte % 30.2 % (19-41); Mean Corp Hgb Conc 32.7 g/dL (32-36); Mean Corpuscular Hgb 27.9 pg (27.0-32.0); Mean Corpuscular Volume 85.5 fL (81-99); Mean Platelet Vol. 9.4 fl (6.2-12.0); Monocyte# 0.59 X10^3/uL; NRBC Flagged by Analyzer 0 % (0-5); Neutrophil # 3.74 X10^3/uL (2.7-7.7); Neutrophil % 56.9 % (47-70); Platelet Count 227 K/mm3 (150-450); RBC Distribution Width CV 13.8 % (11.6-14.6); RBC Distribution Width SD 43.6 fl (35.1-43.9); Red Blood Count 4.33 M/mm3 (4.2-5.4); White Blood Count 6.6 K/mm3 (4.4-11.0)
[2022-05-07 06:44] LABS: Anion Gap 5 (5-15); BUN 18 mg/dL (7-18); BUN/Creat Ratio 21.5 RATIO (10-20); Calcium,Total 9.5 mg/dL (8.5-10.1); Chloride 108 mmol/L (98-107); Creatinine, Serum 0.84 mg/dL (0.55-1.02); EST Glomerular Filtration Rate 69 mL/min (>60); Est Glom Filt Rate - Afr Amer 83 mL/min (>60); Estimated Creatinine Clearance 47.62 ml/min; Glucose 97 mg/dL (74-106); Potassium 3.5 mmol/L (3.5-5.1); Sodium Level 140 mmol/L (136-145)
[2022-05-07 06:58] VITALS: PULSE 65
[2022-05-07 09:10] VITALS: BP 145/69; PULSE 63; RESP 16; TEMP 37.3; O2SAT 98
[2022-05-07] MEDS: Timolol 0.5% 5ML OPTH.BTL 1 DRP EACH EYE (09:17)
--- NOTE | 2022-05-07 10:28 | PCM.PN.SRG ---
Subjective Subjective Patient denies abdominal pain Passing some flatus Feels hungry Objective Data Objective Data Vital Signs: Vital Signs Temp Pulse Resp BP Pulse Ox 99.2 F H 63 16 145/69 H 98 05/07/22 09:10 05/07/22 09:10 05/07/22 09:10 05/07/22 09:10 05/07/22 09:10 Oxygen Delivery Method Room Air Weight: 81 kg Body Mass Index (BMI) 29.3 Intake & Output: Intake and Output for Last 24 Hours 05/05/22 05/06/22 05/07/22 23:59 23:59 23:59 Intake Total 205.83 / 217.08 2067.50 / 2067.50 1110 / 1110 Output Total 1950 / 1950 Balance 205.83 / -32.92 117.50 / 117.50 1110 / 1110 Lab / Micro Data Result Diagrams: 05/07/22 05:55 05/07/22 05:55 Labs: Laboratory Results - last 24 hr 05/07/22 05:55: WBC 6.6, RBC 4.33, Hgb 12.1, Hct 37.0, MCV 85.5, MCH 27.9, MCHC 32.7, RDW Std Deviation 43.6, RDW Coeff of Destin 13.8, Plt Count 227, MPV 9.4, Immature Gran % (Auto) 0.200, Neut % (Auto) 56.9, Lymph % (Auto) 30.2, Bradley % (Auto) 9.0, Eos % (Auto) 3.2, Baso % (Auto) 0.5, Absolute Neuts (auto) 3.7, Absolute Lymphs (auto) 1.98, Nucleated RBC % 0 05/07/22 05:55: Sodium 140, Potassium 3.5, Chloride 108 H, Carbon Dioxide 27.0, Anion Gap 5, BUN 18, Creatinine 0.84, Estim Creat Clear Calc 47.62, Est GFR (MDRD) Af Amer 83, Est GFR (MDRD) Non-Af 69, BUN/Creatinine Ratio 21.5 H, Glucose 97, Calcium 9.5 Radiography Diagnostic Testing: Radiology Impression Small Bowel X-Ray 05/06/22 07:23 IMPRESSION: No obstruction. Electronically Signed: Edis Nash MD at 16:19 EDT , Physical Exam Const alert, oriented x3 and no apparent distress Resp normal respiratory effort GI GI Narrative: abdomen is soft and benign Assessment & Plan Assessment/Plan (1) Small intestine obstruction: PLAN: SBO has resolved Will start patient on low residue/low fiber diet - she asks what this is - I will consult nutritional therapy to educate patient on this She will need to stay on this diet indefinitely to prevent future SBO Can be discharged if she tolerates lunch (low fiber/low residue diet)
--- NOTE | 2022-05-07 14:08 | PCM.DC ---
Discharge Instructions Diet Discharge Diet: - (Low residue diet) Activity Discharge Activity: Return to Normal Activity Dressing / Incision Call your doctor if you observe: Fever of 101 or Higher, Shortness of breath, Dizziness, Fainting spells, Swelling in the ankles, Chest pain and Increased palpitations (irregular heartbeat) Follow Up Care Test Results: Test results from this visit will be discussed in further detail at your follow-up appointment, if applicable. Discharge Plan Admission Admit Date/Time: 05/05/22 21:18 Attending Provider: Sumit Bravo Primary Care Provider: Harley Harding Consulting Providers: Dave Ley ; Luis Drew Discharge Orders/Prescriptions Prescriptions: Continued simvastatin 20 MG tablet 20 mg PO QHS RF: 0 minocycline [Minocin] 50 MG capsule 50 mg PO DAILY RF: 0 timolol maleate 1 DROP drops 1 drp Each Eye DAILY RF: 0 lisinopril 10 MG tablet 10 mg PO DAILY RF: 0 Referrals / Follow Up: Halrey Harding MD [Primary Care Provider] - Within 1 Week Disposition Disposition (needs filled in before D/C Order can be placed): Home, Self Care
--- NOTE | 2022-05-07 14:10 | DS.PCM_ITS ---
Providers Date of Admission: 05/05/22 Primary Care Physician: Dr. Harley Harding MD Consultations 05/05/22 23:23 Consult: General Surgery Routine Consulting Provider: Luis Drew Reason for Consult: Ileus vs SBO EMERGENT Consult: No MD Notified: Yes Date Notified: 05/05/22 Time Notified: 21:25 Method of Notification: Verbal Reason For Visit: HYPERTENSIVE EMERGENCY, ILEUS Diagnosis Discharge Diagnosis (1) Small intestine obstruction: Status: Acute Code(s): K56.609 - Unspecified intestinal obstruction, unspecified as to partial versus complete obstruction Medications at Discharge Home Medications minocycline [Minocin] 50 mg PO DAILY 10/22/13 simvastatin 20 mg PO QHS 10/22/13 timolol maleate 1 drp EACH EYE DAILY 11/01/13 lisinopril 10 mg PO DAILY 04/10/19 Hospital Course Operations None Procedures None Summary of Care Provided Minutes Spent on Discharge: 38 Hospital Course: Per HPI: ZACKARY HAMILTON, is a 86 F with a significant history of abdominal cancer s/p resection; tonsillectomy; cyst removal from throat; breast biopsy x2; bilateral knee replacement; mass resection from gluteal folds; D&C and hypertension who presents to the emergency department with excruciating pain at her waistline. She denies any aggravating factors to the pain. Pain medicine that she received at the emergency department took her pain completely away. She described the pain as a worrying ache. She reports nausea. She reports a history of episodic nausea and as she felt that her waistline pain was a premonition to her nausea and vomiting. Prior to coming to the emergency department she had not vomited. However at the emergency department she had an episode of vomiting. She report that her last bowel movement was on the same day of presentation but she felt she did not have a full bowel movements at that time. At emergency department she was given doses of clonidine; and hydralazine IV; however her blood pressure remained elevated so Cardene drip was ordered. Cardene drip was ordered. She is on home lisinopril that she reports compliance with. She takes her lisinopril in the evening. And the last time as she took her lisinopril was a day (evening) before presentation. Because of her back pain emergent department doctor was a concern of aortic di ssection. So abdomen pelvis CTA was obtained. The abdomen and pelvis CTA showed adynamic/partial small bowel obstruction. Hospital Course: 1. Partial small bowel obstruction?86-year-old female presents to the hospital with nausea vomiting abdominal pain, she states that this happens periodically every couple of months but seems to resolve on its own. She did have a small bowel follow-through which showed contrast making it all the way to the colon therefore the NG tube was removed and her diet was advanced. She did tolerate a low residue regular diet today without any nausea vomiting or abdominal pain. General surgery felt that if she was able to tolerate the diet that she would be stable for discharge. I discussed with her the plan for possible discharge t ana she expressed understanding of the risk benefits of going home and would like to go home today. 2. Hypertension with hypertensive urgency/HLD?she does have a history of hypertension and is on lisinopril for it she did have blood pressures with systolics in the 200s but this was likely secondary to her nausea, vomiting, and abdominal pain. Once these resolved her blood pressures did improve. I did restart her lisinopril on the day of discharge, however I did discuss with her that she should follow-up with her PCP to monitor her blood pressure as an outpatient to decide whether or not she needs to go up especially given her age. Physical Exam Const alert, oriented x3 and no apparent distress General Appearance: cooperative HEENT normocephalic and moist oral mucous membranes Eyes PERRL, EOMs intact bilaterally and conjunctivae normal Neck supple and no JVD Resp normal respiratory effort, no retractions and no use of accessory muscles Auscultation: Negative for crackles, rales, rhonchi or wheezes Cardio regular rate, regular rhythm, S1 normal heart sound, S2 normal heart sound and no murmurs GI soft to palpation, non-tender and non-distended; Negative for hepatosplenomegaly Extremity no clubbing, cyanosis or edema Skin no rashes or lesions noted Neuro no focal motor deficits and no sensory deficits noted Psych affect normal Appearance: appropriate Weight / BMI Weight Weight: 178 lb 9.191 oz Body Mass Index (BMI) 29.3 ABG / Lab / Microbiology Data Result Diagrams: 05/07/22 05:55 05/07/22 05:55 Laboratory: Laboratory Results - last 24 hr 05/07/22 05:55: WBC 6.6, RBC 4.33, Hgb 12.1, Hct 37.0, MCV 85.5, MCH 27.9, MCHC 32.7, RDW Std Deviation 43.6, RDW Coeff of Destin 13.8, Plt Count 227, MPV 9.4, Immature Gran % (Auto) 0.200, Neut % (Auto) 56.9, Lymph % (Auto) 30.2, Stephens % (Auto) 9.0, Eos % (Auto) 3.2, Baso % (Auto) 0.5, Absolute Neuts (auto) 3.7, Absolute Lymphs (auto) 1.98, Nucleated RBC % 0 05/07/22 05:55: Sodium 140, Potassium 3.5, Chloride 108 H, Carbon Dioxide 27.0, Anion Gap 5, BUN 18, Creatinine 0.84, Estim Creat Clear Calc 47.62, Est GFR (MDRD) Af Amer 83, Est GFR (MDRD) Non-Af 69, BUN/Creatinine Ratio 21.5 H, Glucose 97, Calcium 9.5 Radiography Diagnostic Testing: Radiology Impression Small Bowel X-Ray 05/06/22 07:23 IMPRESSION: No obstruction. Electronically Signed: Edis Nash MD at 16:19 EDT , D/C Instructions Discharge Diet: - (Low residue diet) Call your doctor if you observe: Fever of 101 or Higher, Shortness of breath, Dizziness, Fainting spells, Swelling in the ankles, Chest pain and Increased palpitations (irregular heartbeat) Meaningful Use Info Meaningful Use Diagnoses (Choose all that apply): None applicable Discharge Plan Admission Admit Date/Time: 05/05/22 21:18 Attending Provider: Sumit Bravo Primary Care Provider: Harley Harding Consulting Providers: Dave Ley ; Luis Drew Discharge Orders/Prescriptions Prescriptions: Continued simvastatin 20 MG tablet 20 mg PO QHS RF: 0 minocycline [Minocin] 50 MG capsule 50 mg PO DAILY RF: 0 timolol maleate 1 DROP drops 1 drp Each Eye DAILY RF: 0 lisinopril 10 MG tablet 10 mg PO DAILY RF: 0 Referrals / Follow Up: Harley Harding MD [Primary Care Provider] - Within 1 Week Disposition Disposition (needs filled in before D/C Order can be placed): Home, Self Care Charges/Coding Visit Charges Inpatient E&M: 38064 Disch Hosp
== END 2022-05-07 14:39 | disposition home or self-care (01) | DRG 390 ==
LOC: ED 21:31 → ICU 21:41 → PCU 05-06 14:01
PROVIDERS: Admitting Provider Hospitalist; Emergency Provider Emergency Medicine; PCP Family Medicine; Visit Provider Family Medicine
DX: K56.0 Paralytic ileus (principal); I16.0 Hypertensive urgency; I10 Essential (primary) hypertension; E78.5 Hyperlipidemia, unspecified; H40.9 Unspecified glaucoma; Z79.899 Other long term (current) drug therapy; Z87.891 Personal history of nicotine dependence; Z96.653 Presence of artificial knee joint, bilateral
CPT/HCPCS: 36415; 74018; 74174; 74250; 80048; 80053; 81001; 83605; 84484; 85025; 93005; 94762; 97161; 97165; 97803; 99285; J7050; J7120; Q9967; A4216; J2405

== ENCOUNTER → 2022-06-01 | Outpatient (CLI) | payer MEDICARE, SELFPAY ==
[2022-06-01 15:27] LABS: Vitamin D,25 Hydroxy 15.3 ng/mL
[2022-06-01 15:47] LABS: ALB/GLOB Ratio 1.3 RATIO (0.9-2.4); AST(SGOT) 20 U/L (15-37); Alanine Aminotransfer ALT/SGPT 22 U/L (13-56); Albumin, Serum 3.8 g/dL (3.2-5.0); Alkaline Phosphatase 83 U/L (45-117); Anion Gap 7 (5-15); BUN 23 mg/dL (7-18); BUN/Creat Ratio 27.9 RATIO (10-20); Calcium,Total 9.7 mg/dL (8.5-10.1); Chloride 108 mmol/L (98-107); Cholesterol 166 mg/dL (200); Creatinine, Serum 0.82 mg/dL (0.55-1.02); EST Glomerular Filtration Rate 70 mL/min (>60); Est Glom Filt Rate - Afr Amer 85 mL/min (>60); Glucose 90 mg/dL (74-106); High Density Lipoprotein 67 mg/dL; Potassium 4.2 mmol/L (3.5-5.1); Protein, Total 6.8 g/dL (6.4-8.2); Sodium Level 139 mmol/L (136-145); Thyroid Stim Hormone (TSH) 0.41 uIU/mL (0.358-3.74); Triglycerides 71 mg/dL; Uric Acid 5.5 mg/dL (2.6-6.0); Very Low Density Lipoprotein 14 mg/dL (5-40)
== END | disposition home or self-care (01) ==
PROVIDERS: PCP Family Medicine; Referring Provider Family Medicine; Visit Provider Family Medicine
DX: R73.01 Impaired fasting glucose (principal); E78.5 Hyperlipidemia, unspecified; M85.80 Other specified disorders of bone density and structure, unspecified site; M10.9 Gout, unspecified
CPT/HCPCS: 36415; 80053; 80061; 82306; 84443; 84550

== ENCOUNTER → 2022-07-04 | Outpatient (CLI) | payer MEDICARE, SELFPAY ==
--- NOTE | 2022-07-04 14:23 | RAD_ITS ---
STUDY: X-RAY - LUMBOSACRAL SPINE REASON FOR EXAM: Female, 86 years old. Back pain. TECHNIQUE: 7 view(s) of the lumbosacral spine, including lateral flexion and extension views, were obtained. COMPARISON: 07/12/2021. FINDINGS: Osteopenia. Normal lumbar lordosis. Rotatory levoscoliosis. 3 mm of anterolisthesis of L3 on L2 and L2 on L1. 9 mm anterolisthesis of L4 on L5. Limited flexion and extension with no abnormal motion. Diffuse facet sclerosis. Diffuse intervertebral disc space narrowing with osteophytes. Normal bilateral sacral ala, sacroiliac joints, and visualized sacrum. Marked vascular calcifications and postsurgical changes in the upper left pelvis extending into the lower left pelvis. RAD/L/S Spine w Bend Min 6 Vw IMPRESSION: Osteopenia with stable findings of moderate to marked lumbosacral spondylosis. No acute finding, evidence of erosive changes or fusion. Electronically Signed: Charles Edouard, at 10:02 EDT ,
== END | disposition home or self-care (01) ==
LOC: MTRAD 14:15
PROVIDERS: PCP Family Medicine; Referring Provider Family Medicine; Visit Provider Family Medicine
DX: I10 Essential (primary) hypertension (principal)
CPT/HCPCS: 72114

== ENCOUNTER 2022-07-07 07:35 | Day surgery (SDC) | payer MEDICARE, SELFPAY ==
--- NOTE | 2022-07-07 08:19 | HP.PCM_ITS ---
History and Physical Date of Service:? 05/17/22 MR#: [id number] Acct: [id number] Name:? ZACKARY HAMILTON Rep #: [id number] : 1935 ? ? Provider: Dr. Luis Drew MD Age/Sex:? 86/F ? ? Location: [facility] Status: Signed Intake Vital Signs ? 05/17/2209:40 Height 5 ft 7 in Weight: 181 lb 8 oz BMI 28.4 BP 145/67 H Blood Pressure Location Rt brachial Position Sitting Respiration 16 Pulse 79 Pulse Source Monitor Temp 98.2 F Temp Source Temporal Pulse Oximetry (%) 100 Oxygen Delivery Method room air Intake Visit Reasons:?HOSP F/U SMALL BOWEL OBSTRUCTION & DISCUSS CSCOPE Chief Complaint: f/u ED bowel obstruction and discuss c-scope French Cord Binder Required: No Is patient in pain?: No Allergies morphine Adverse Reaction (Intermediate, Verified 05/17/22 09:41) Inflammation of vein Medications minocycline 50 mg capsule (Minocin) 50 mg PO DAILY infection 10/22/13 [History Confirmed 05/17/22] simvastatin 20 mg tablet 20 mg PO QHS cholesterol 10/22/13 [History Confirmed 05/17/22] timolol maleate 0.5 % eye drops 1 drp DAILY eye health 11/01/13 [History Confirmed 05/17/22] lisinopril 10 mg tablet 10 mg PO DAILY blood pressure 04/10/19 [History Confirmed 05/17/22] amlodipine 5 mg tablet 5 mg PO DAILY 05/17/22 [History Confirmed 05/17/22] PFSH Medical History? FH: total knee replacement Hypertension Surgical History? H/O breast biopsy H/O removal of cyst History of abdominal surgery Social History? Smoking Status:? Former smoker HPI HPI HPI: ZACKARY HAMILTON, is a 86 F who presents to the office today for follow-up of a recent hospital admission occasion by bowel obstruction and need to schedule diagnostic colonoscopy secondary to change in stool caliber.? Scratch that patient states that since her discharge she has not experienced any further distention or nausea.? She is still restricting her diet to a low residue type, but is generally eating what she wants.? She is simply avoiding her usual quantity of vegetables and fruits.? With this, she has had bowel movements, but not with the frequency that she normally experiences.? She states yesterday (05/16/2022) was her first significant bowel movement and even this was of lower volume than normal.? She comments that it was very thin but there is no blood and easily passed. Patient has not had prior colonoscopy.? Patient has no personal history of diverticulitis, inflammatory bowel disease, or colon cancer. They describe their bowel habits as occurring most days out of the week (patient estimates 5 out of 7), but states that they are caliber has been thin for the last 1.5 years.? She denies any significant straining.? They have not noticed recent bleeding or dark stools.? They do not regularly take fiber supplements.? Patient is unclear on her family history as she is adopted.? ? ? In addition above patient reminds me of her 4+ episodes of unexplained vomiting.? She believes this vomiting started 2 years ago and there is little warning to each episode.? Following onset, she will experience vomiting every hour on the hour for a period of 24 to 48 hours and then things seem to spontaneously remit.? She initially attributed this to some sort of food poisoning and began avoiding reheated rice.? Her most recent presentation to the hospital with similar, however, it was proceeded by abdominal pain at the waistline. Patient denies any recent onset of swallowing difficulty or bloating.? She has very infrequent reflux episodes.? She notes there is one last week, but states the overall frequency is not more than once every 4 months or so. The patient is not prescribed anticoagulants/blood thinners. Relevant prior abdominal surgical history includes: None ROS General General: Yes fatigue; No weight change, appetite, colon cancer, breast cancer or weakness HEENT HEENT: Yes eye surgery; No difficulty swallowing, eye injury, swollen glands or hoarseness Endo Endocrine: No thyroid disease, diabetes mellitus, thyroid cancer, Hair loss, heat intolerance or cold intolerance Skin Skin: No rash or changing moles Breast Breast: No left breast lump, right breast lump, nipple discharge, breast pain, abnormal mammogram, abnormal US or breast enlargement Musc Musculoskeletal: Yes arthritis and gout; No back problems, rheumatoid arthritis or joint pain Cardio Cardiovascular: Yes high blood pressure; No murmur, pacemaker, heart disease, atrial fibrillation, heart attack, heart stent, palpitations, shortness of breat with exertion or chest pain Psych Psychiatric: Yes depression and anxiety; No hearing voices Resp Respiratory: No shortness of breath, No sleep apnea, No cough, No COPD, No asthma, No emphysema and No wheezing Gastro Gastrointestinal: Yes abdominal pain, No nausea or vomiting, No diarrhea, No constipation, No blood in stool, No acid reflux, No hemorrhoids, No ulcers, No gallbladder problem and No black,tarry stools Giancarlo Hematologic: No blood thinners, No blood disorders, No bleeding, No anemia and No blood clots Neuro Neurologic: No system reviewed and no additional complaints, except as documented, No as per HPI, No abnormal gait, No abnormal hearing, No abnormal movements, No abnormal speech, No behavioral changes, No burning sensations, No confusion, No convulsions, No disequilibrium, No dizziness, No localized weakness, No frequent falls, No headache(s), No lack of coordination, No loss of vision, No memory loss, No numbness, No other visual disturbances, No radicular pain, No restless legs, No sensory deficit, No syncope, No tingling, No tremor(s), No weakness and No other Exam Const General: cooperative, healthy appearing, comfortable and no acute distress Orientation: alert, awake and oriented x3 GI Inspection: normal to inspection and scar (Lower midline) Assessment and Plan Assessment and Plan (1) GERD (gastroesophageal reflux disease): ?Status:?Chronic ?Comment: Patient with infrequent reflux symptoms.? However given her history of unexplained vomiting, would like to proceed with EGD investigation and obtain biopsies for H. pylori. ?Plan: EGD under local MAC with biopsies (2) Vomiting in adult: ?Status:?Acute ?Comment: Multiple unexplained episodes of vomiting while patient is otherwise feeling well.? As above, we will proceed with EGD simultaneous to colonoscopy. ?Plan: EGD under local MAC with biopsies for H. pylori and as indicated by exam (3) Decreased stool caliber: ?Status:?Acute ?Comment: This is a 86-year-old female who presents with a year and a half long history of decreased stool caliber.? She was also recently admitted to the hospital with obstructive signs and symptoms.? Would like to proceed with diagnostic colonoscopy as the patient has had no prior colonoscopy.? In light of fact that she is experiencing decreased frequency of bowel movements, I have asked her to do 2 days of clears before completing her prep to better ensure an adequate prep for a thorough exam. ?Plan: ? Diagnostic colonoscopy under local MAC with prep to be proceeded by 2 days of clears.? Discussed with patient that she will require a mobile lounge driver the day of the procedure and the sedation to be administered.? She expressed understanding and will arrange for her to provide transportation. I have re-examined the patient. There are no clinical changes since date of exam. Patient confirms that she completed her prep and that her output is now primarily thin yellow liquid. She denies any abdominal discomfort. As above, she has experienced alternating caliber stools. She denies any further questi ons. We will plan to proceed with EGD and colonoscopy under local MAC as discussed above.
[2022-07-07 08:20] VITALS: BP 122/81; PULSE 70; RESP 16; TEMP 36.9; O2SAT 100; BMI 27.2
[2022-07-07] MEDS: Lactated Ringers 1,000 ML 15 ML IV (08:30)
--- NOTE | 2022-07-07 08:30 | IMM_PTH ---
PATIENT: ZACKARY HAMILTON LOC: [facility] U#:[id number] AGE/SX: 86/F ROOM: RE07/07/[address]: Dr. Luis Drew MD : 1935 BED: DIS: 07/07/2022 SPEC #: [id number] RECD: 07/08/22 08:16 STATUS: RICARDO REBaldev #: [id number] BEBE: 07/07/22 08:[address]: Luis Drew DEPT: IMMUNOHISTOCHEMISTRY RECD BY: Mai Archibald ENTERED: 07/08/22 08:17 SP TYPE: IMMUNO OTHR DR: Dr. Edis Harding MD Tissues: B - Stomach, NOS Procedures: H Pylori (initial) PHYSICIAN & INSTITUTION [place] [address] SPECIMEN INFORMATION: Tissue Source: B ? Gastric antrum biopsy Clinical Info: GERD, vomiting, decreased stool caliber Specimen Number: [id number] CPT code: 61121 METHODOLOGY: Deparaffinized sections of prefer/formalin-fixed tissue or PAP/DQ stained slides are incubated with monoclonal/polyclonal antibodies/oligonucleotide probes. Localization is made via biotin free immunoperoxidase method. Appropriate controls are performed and reacted as expected. Results on target cell population are indicated in the following table: RESULTS: ANTIBODY / CLONE RESULT Block B H Pylori (polyclonal) negative These tests were developed and their performance characteristics determined by [facility]. They may not have been cleared or approved by the U.S. Food and Drug Administration. The FDA has determined that such clearance or approval is not necessary. The above immunohistochemical/dualISH markers are ordered and reviewed by the Pathologist. INTERPRETATION: B. Gastric antrum, biopsy: Negative for Helicobacter pylori organisms. SJ:primitivo 07/11/22
--- NOTE | 2022-07-07 08:30 | EGD_PTH ---
PATIENT: ZACKARY HAMILTON LOC: EN U#:[id number] AGE/SX: 86/F ROOM: RE07/07/[address]: Dr. Luis Drew MD : 1935 BED: DIS: 07/07/2022 SPEC #: [id number] RECD: 07/07/22 14:42 STATUS: RICARDO NI #: [id number] BEBE: 07/07/22 08:[address]: Luis Drew DEPT: SURGICAL PATHOLOGY RECD BY: Esperanza Mahoney ENTERED: 07/08/22 08:10 SP TYPE: EGD BIOPSY LISA DR: Dr. Edis Harding MD Tissues: A - POLYP B - Gastric mucous membrane C - Gastric mucous membrane D - COLON BIOPSY Procedures: Surgery Specimen Level IV HEADER OPERATION: [place] [place] DIAGNOSIS: GERD, vomiting, decreased stool caliber TISSUE SUBMITTED: A ? Polypoid D1, B ? Gastric antrum biopsy, C ? Hiatal gastric polyp, D ? Irregular fold biopsy at 90 cm MICROSCOPIC DIAGNOSIS A ? Polypoid lesion, biopsy: Superficial fragments of duodenal mucosa, no pathologic diagnosis. A polypoid fragment of gastric mucosa with mild chronic inflammation. B ? Gastric antrum biopsy: Mild gastritis. See microscopic description and comment. C ? Hiatal gastric polyp: Superficial fragments of gastric mucosa, no pathologic diagnosis. D ? Irregular fold biopsy at 90 cm: Fragments of tubular adenoma. / 07/11/2022 COMMENT B. The results of immunohistochemistry for Helicobacter pylori will be reported separately ([id number]). MICROSCOPIC DESCRIPTION Slides are reviewed. The specimen shows fragments of gastric mucosa with chronic inflammatory cell infiltrates in the lamina propria consisting of lymphocytes and plasma cells, consistent with mild chronic gastritis. GROSS DESCRIPTION A - Received in fixative is one container labeled with the patient's name and designated polypoid D1. The specimen consists of one irregular fragment of light wright soft tissue that measures 0.3 x 0.2 x 0.1 cm. The specimen is totally submitted in one cassette. B - Received in fixative is one container labeled with the patient's name and designated gastric antrum. The specimen consists of two irregular fragments of light wright soft tissue that in aggregate measure 0.8 x 0.4 x 0.1 cm. The specimen is totally submitted in one cassette. C - Received in fixative is one container labeled with the patient's name and designated hiatal gastric polyp. The specimen consists of one irregular fragment of light wright soft tissue that measures 0.5 x 0.2 x 0.1 cm. The specimen is totally submitted in one cassette. D - Received in fixative is one container labeled with the patient's name and designated polyp at 90 cm. The specimen consists of two irregular fragments of light wright soft tissue that in aggregate measure 0.8 x 0.4 x 0.1 cm. The specimen is totally submitted in one cassette. / SJ:rg 07/08/2022 TC:1 CPT: 83446 x4
[2022-07-07 09:45] VITALS: BP 122/81; BP 127/59; PULSE 56; RESP 16; TEMP 36.1; O2SAT 100
[2022-07-07 09:50] VITALS: BP 122/81; BP 98/78; PULSE 49; RESP 16; O2SAT 100
--- NOTE | 2022-07-07 09:51 | OP.EGD_ITS ---
Patient Name: Shena Schultz Procedure Date: 07/07/2022 8:19 AM Date of : 1935 Age: 86 Procedure: Upper GI endoscopy Indications: Suspected esophageal reflux Providers: Luis Drew MD Medicines: Monitored Anesthesia Care Patient Profile: Refer to note in patient chart for documentation of history and physical. Patient has symptoms of chronic vomiting. Complications: No immediate complications. Estimated blood loss: Minimal. Procedure: Pre-Anesthesia Assessment: - The heart rate, respiratory rate, oxygen saturations, blood pressure, adequacy of pulmonary ventilation, and response to care were monitored throughout the procedure. After obtaining informed consent, the endoscope was passed under direct vision. Throughout the procedure, the patient's blood pressure, pulse, and oxygen saturations were monitored continuously. The Colonoscope was introduced through the mouth, and advanced to the second part of duodenum. The upper GI endoscopy was accomplished without difficulty. The patient tolerated the procedure well. Scope In: 8:44:48 AM Scope Out: 9:03:09 AM Total Procedure Duration Time 0 hours 18 minutes 21 seconds Findings: A few 3 mm pedunculated and sessile polyps with no bleeding were found in the first portion of the duodenum. Biopsies were taken with a cold forceps for histology. Estimated blood loss was minimal. Localized mildly erythematous mucosa without bleeding was found in the gastric antrum. Biopsies were taken with a cold forceps for histology. Estimated blood loss was minimal. Biopsies were taken with a cold forceps for Helicobacter pylori cultures. A small hiatal hernia was present. No biopsies or other specimens were collected for this exam. Two 3 mm semi-sessile polyps with no bleeding and no stigmata of recent bleeding were found in the cardia. Biopsies were taken with a cold forceps for histology. Estimated blood loss was minimal. The Z-line was regular and was found 43 cm from the incisors. No biopsies or other specimens were collected for this exam. The exam was otherwise without abnormality. Impression: - A few duodenal polyps. Biopsied. - Erythematous mucosa in the antrum. Biopsied. - Small hiatal hernia. No specimens collected. - Two gastric polyps. Biopsied. - Z-line regular, 43 cm from the incisors. No specimens collected. - The examination was otherwise normal. Recommendation: - Discharge patient to home (via wheelchair). - Resume regular diet today. - Use Prilosec (omeprazole) 20 mg PO daily today. - Continue present medications. Procedure Code(s): --- Professional --- 11211, Esophagogastroduodenoscopy, flexible, transoral; with biopsy, single or multiple Diagnosis Code(s): --- Professional --- K31.7, Polyp of stomach and duodenum K31.89, Other diseases of stomach and duodenum K44.9, Diaphragmatic hernia without obstruction or gangrene CPT copyright 2017 [employer]. All rights reserved. The codes documented in this report are preliminary and upon certified coding specialist review may be revised to meet current compliance requirements. Luis Drew MD 07/07/2022 9:50:34 AM This report has been signed electronically. Number of Addenda: 0 Note Initiated On: 07/07/2022 8:19 AM
--- NOTE | 2022-07-07 09:52 | OP.CCLET_ITS ---
07/07/2022 Harley Harding [address] [place] [address] Re : Upper GI endoscopy procedure for [facility] Dear Dr. Harding This procedure was performed on June. My impressions and recommendations are as follows: Impressions : - A few duodenal polyps. Biopsied. - Erythematous mucosa in the antrum. Biopsied. - Small hiatal hernia. No specimens collected. - Two gastric polyps. Biopsied. - Z-line regular, 43 cm from the incisors. No specimens collected. - The examination was otherwise normal. Recommendations : - Discharge patient to home (via wheelchair). - Resume regular diet today. - Use Prilosec (omeprazole) 20 mg PO daily today. - Continue present medications. My findings are described in the full procedure note, which is enclosed. If I can be of further assistance, please feel free to contact me at Doctor phone number(s): , Work: . Sincerely, Luis Drew MD 07/07/2022 9:50:34 AM This report has been signed electronically.
[2022-07-07 09:55] VITALS: BP 122/81; BP 129/60; PULSE 55; RESP 16; O2SAT 100
--- NOTE | 2022-07-07 09:59 | OP.CCLET_ITS ---
07/07/2022 Harley Harding [address] [place] [address] Re : Colonoscopy procedure for [facility] Dear Dr. Harding This procedure was performed on June. My impressions and recommendations are as follows: Impressions : - Likely benign polypoid lesion in the ascending colon. Biopsied. Treated with hot biopsy forceps. - Diverticulosis in the sigmoid colon. No specimens collected. - The examination was otherwise normal on direct and retroflexion views. Recommendations : - Discharge patient to home (via wheelchair). - High fiber diet today. - Continue present medications. - Await pathology results. - Telephone my office for pathology results in 1 week. - Repeat colonoscopy is recommended. The colonoscopy date will be determined after pathology results from today's exam become available for review. My findings are described in the full procedure note, which is enclosed. If I can be of further assistance, please feel free to contact me at Doctor phone number(s): , Work: . Sincerely, Luis Drew MD 07/07/2022 9:58:35 AM This report has been signed electronically.
--- NOTE | 2022-07-07 09:59 | OP.COLON_ITS ---
Patient Name: Shena Schultz Procedure Date: 07/07/2022 9:03 AM Date of : 1935 Age: 86 Procedure: Colonoscopy Indications: Change in stool caliber Providers: Luis Drew MD Medicines: Monitored Anesthesia Care Patient Profile: Refer to note in patient chart for documentation of history and physical. Patient has symptoms of chronic vomiting. Last Colonoscopy: none. The patient's first colonoscopy is today. Complications: No immediate complications. Estimated blood loss: Minimal. Procedure: Pre-Anesthesia Assessment: - The heart rate, respiratory rate, oxygen saturations, blood pressure, adequacy of pulmonary ventilation, and response to care were monitored throughout the procedure. After I obtained informed consent, the scope was passed under direct vision. Throughout the procedure, the patient's blood pressure, pulse, and oxygen saturations were monitored continuously. The Colonoscope was introduced through the anus and advanced to the cecum, identified by appendiceal orifice and ileocecal valve. The colonoscopy was performed without difficulty. The patient tolerated the procedure well. The quality of the bowel preparation was adequate to identify polyps. Scope In: 9:05:19 AM Scope Withdrawal Time 0 hours 25 minutes 13 seconds Scope Out: 9:39:10 AM Total Procedure Duration Time 0 hours 33 minutes 51 seconds Findings: An 18 mm polypoid lesion was found in the ascending colon. The lesion was semi-sessile. No bleeding was present. Mucosa was biopsied with a cold forceps for histology. Coagulation for hemostasis using hot biopsy forceps was successful. Multiple large-mouthed diverticula were found in the sigmoid colon. No biopsies or other specimens were collected for this exam. The exam was otherwise without abnormality on direct and retroflexion views. Impression: - Likely benign polypoid lesion in the ascending colon. Biopsied. Treated with hot biopsy forceps. - Diverticulosis in the sigmoid colon. No specimens collected. - The examination was otherwise normal on direct and retroflexion views. Recommendation: - Discharge patient to home (via wheelchair). - High fiber diet today. - Continue present medications. - Await pathology results. - Telephone my office for pathology results in 1 week. - Repeat colonoscopy is recommended. The colonoscopy date will be determined after pathology results from today's exam become available for review. Procedure Code(s): --- Professional --- 17335, Colonoscopy, flexible; with control of bleeding, any method Diagnosis Code(s): --- Professional --- D49.0, Neoplasm of unspecified behavior of digestive system R19.5, Other fecal abnormalities K57.30, Diverticulosis of large intestine without perforation or abscess without bleeding CPT copyright 2017 [employer]. All rights reserved. The codes documented in this report are preliminary and upon supervisor chassis assembly review may be revised to meet current compliance requirements. Luis Drew MD 07/07/2022 9:58:35 AM This report has been signed electronically. Number of Addenda: 0 Note Initiated On: 07/07/2022 9:03 AM
[2022-07-07 10:00] VITALS: BP 122/81; BP 98/80; PULSE 52; RESP 16; TEMP 36.4; O2SAT 99
[2022-07-07 10:44] VITALS: BP 122/81
== END 2022-07-07 10:49 | disposition home or self-care (01) ==
LOC: EN 07:35 → AC 07:37
PROVIDERS: PCP Family Medicine; Referring Provider Family Medicine; Visit Provider Surgery
PROC: 0DJD8ZZ Inspection of Lower Intestinal Tract, Via Natural or Artificial Opening Endoscopic (ICD-10-PCS; CPT 45378; principal; 2022-07-07 08:25)
DX: D12.2 Benign neoplasm of ascending colon (principal); K44.9 Diaphragmatic hernia without obstruction or gangrene; K31.7 Polyp of stomach and duodenum; K57.30 Diverticulosis of large intestine without perforation or abscess without bleeding; K29.70 Gastritis, unspecified, without bleeding; I10 Essential (primary) hypertension; M19.90 Unspecified osteoarthritis, unspecified site; Z79.899 Other long term (current) drug therapy; Z87.891 Personal history of nicotine dependence
CPT/HCPCS: 45380; 43239; 45382; 88305; 88342; J7120; J2405

== ENCOUNTER 2022-07-08 19:04 | Emergency (ER) | payer MEDICARE, SELFPAY ==
[2022-07-08 19:07] VITALS: BP 163/121; PULSE 92; RESP 16; TEMP 36; O2SAT 98; BMI 27.2
--- NOTE | 2022-07-08 19:56 | EDS_ITS ---
HPI HPI - GI History of Present Illness Chief Complaint: Abd Pain Detail of Chief Complaint: Feeling ill followed by nausea and vomiting. No abdominal pain Informant: patient and spouse/S.O. Abdominal Pain/Flank Pain Onset: Today (Illness started at 10 AM. Vomiting 2 hours prior to presentation) Context: Sudden Onset Timing: Continuous and Waxes and wanes Quality: Aching, Burning, Cramping, Dull, Sharp, Stabbing and - (Denies abdominal pain) Location: - (Not applicable) Current Severity: Mild (Nausea) Maximum Severity: Severe (Nausea) Worsened by: Nothing Relieved by: Nothing Nausea/Vomiting/Emesis GI Symptom: Positive for Nausea, Vomiting and - (X2) Onset: Hours Quality: Negative for Nonbilious, Blood streaks, Coffee ground or Hematemesis Diarrhea/Melena/Hematochezia GI Symptom: Negative for Diarrhea, Melena or Hematochezia Associated Symptoms Associated Symptoms: Negative for Dysuria, Frequency, Hematuria or Urgency Narrative Narrative: Patient is an elderly woman who presents with sense of not feeling well that started at 10 AM. 2 hours prior to presentation she developed severe nausea and has vomited twice. She states the emesis was beige in color. There was no blood or coffee grounds noted. She had a EGD and colonoscopy performed yesterday to determine cause of her intermittent severe nausea and vomiting. She apparently was admitted last ER visit because of concern for partial small bowel obstruction. She states she was then transferred to the ICU because of marked hypertension. She denies headache, visual, ocular auditory symptoms. She denies cardiac respiratory symptoms. She denies urologic symptoms. She neurologic symptoms. Prior similar symptoms: Yes Recent Illness/Hospitalization: Yes [facility] Medical History Alcohol use Ambulates with cane Anxiety Arthritis Back pain Cancer Depression FH: total knee replacement Former smoker High cholesterol History of edema History of stress test Hypertension Post-menopausal Shortness of breath on exertion Wears dentures Wears glasses Home Medications minocycline 50 mg capsule (Minocin) 50 mg PO DAILY infection 10/22/13 [History Last Taken Unknown] simvastatin 20 mg tablet 20 mg PO QHS cholesterol 10/22/13 [History Last Taken Unknown] timolol maleate 0.5 % eye drops 1 drp DAILY eye health 11/01/13 [History Last Taken Unknown] lisinopril 10 mg tablet 10 mg PO DAILY blood pressure 04/10/19 [History Last Taken Unknown] amlodipine 5 mg tablet 5 mg PO DAILY 05/17/22 [History Last Taken Unknown] lactulose 10 gram/15 mL oral solution 20 g (30 mL) PO BID #237 mL 07/04/22 [Rx Last Taken Unknown] cholecalciferol (vitamin D3) 1,250 mcg (50,000 unit) capsule 50,000 unit PO HERNÁNDEZ 07/05/22 [History Last Taken Unknown] omeprazole 20 mg capsule,delayed release 20 mg PO DAILY #30 caps 07/07/22 [Rx Last Taken Unknown] dicyclomine 10 mg capsule 20 mg PO TIDAC #20 CAPSULES 07/08/22 [Rx Last Taken Unknown] ondansetron 4 mg disintegrating tablet 4 mg PO Q8H PRN PRN Nausea #10 tabs 07/08/22 [Rx Last Taken Unknown] Allergy/AdvReac Type Severity Reaction Status Date / Time morphine AdvReac Intermediate Inflammation Verified 07/08/22 19:06 of vein Surgical History H/O breast biopsy H/O removal of cyst History of abdominal surgery Hx of bilateral cataract extraction Hx of dilation and curettage Hx of external ear surgery Social History (Updated 07/08/22 @ 19:[address] Geovanny Brito MD) household members: spouse Smoking Status: Former smoker alcohol intake: current ROS ROS ED Constitutional Constitutional ED: Denies chills, fever(s), subjective, sweats or weight loss ENT ENT ED: Denies ear pain, rhinorrhea or sore throat Cardiovascular Cardiovascular: Reports other Details: Orthostatic symptoms ; Denies chest pain, palpitations or racing heartbeat Respiratory/Chest Respiratory/Chest: Denies cough, dyspnea or dyspnea on exertion Gastrointestinal Gastrointestinal: Reports nausea and vomiting; Denies abdominal pain, constipation, diarrhea or melena Genitourinary Genitourinary ED: Denies dysuria, hematuria or urinary frequency Musculoskeletal Musculoskeletal: Denies arthralgias, back pain, myalgias or neck pain Neurologic Neurologic: Reports weakness; Denies headache(s) or paresthesias Psychiatric Psychiatric: Reports depression Endocrine Endocrinology: Denies polydipsia, polyphagia or polyuria Hematologic/Lymphatic Hematologic/Lymphatic: Denies easy bleeding or easy bruising EXAM Physical Exam Const Vital Signs: 07/08/22 19:07 07/08/22 21:19 07/08/22 22:01 Temperature 96.8 F L Temperature Source Temporal Pulse Rate 92 81 91 Respiratory Rate 16 18 Blood Pressure 163/121 H 208/65 H 180/66 H Blood Pressure Mean 135 112 104 Pulse Ox 98 99 Oxygen Delivery Method Room Air Room Air 07/08/22 22:31 Temperature Temperature Source Pulse Rate Respiratory Rate Blood Pressure 158/55 H Blood Pressure Mean 89 Pulse Ox Oxygen Delivery Method Positive well nourished and well developed Constitutional Narrative: Patient does not appear well. She does not appear toxic. General Appearance ED: well developed and NAD; Negative for pallor HEENT Reports dry mucous membranes HEENT Narrative: Ears normal. Nares patent. Uvula midline. No erythema or exudate the posterior pharynx. normocephalic and atraumatic Mouth ED: Yes dry mucous membranes Mouth: dry mucous membranes Eyes PERRL and EOMs intact bilaterally General Eye ED: Negative for pale conjunctiva or scleral icterus Neck no lymphadenopathy, supple and no JVD Neck Narrative: Trachea midline. No carotid bruits. Resp normal respiratory effort and clear to auscultation bilaterally Cardio regular rate, regular rhythm, S1 normal heart sound, S2 normal heart sound and no murmurs GI non-tender, non-distended and no masses Auscultation: hypoactive bowel sounds Palpation: soft Back/Spine no CVA tenderness Extremity full ROM General Extremety ED: Negative for edema or tenderness General Extremity: Negative for edema Neuro CN's II-XII intact bilaterally and moves all extremities Sensorium / Orientation: alert Psych Mood & Affect: depressed Skin no wounds General Skin Exam: Negative for jaundice or pallor Lesions: no lesions Rashes: no rashes MDM MDM MDM Narrative Medical decision making narrative: Packed patient's lightheadedness is due to orthostatic hypotension since she had a bowel prep and has not eaten much since her EGD and colonoscopy. Suspect the nausea and vomiting is due to adverse reaction to the medicine administered for the procedures performed by general surgery. Basic metabolic panel was obtained to assess CO2/anion gap, electrolytes and renal function. She was treated with IV fluids and Zofran. Patient was reassessed at 2215. She feels better. She did pass p.o. challenge when she was reassessed at 2252. Plan is to go home with prescription for Bentyl and Zofran ODT. Patient received a [place] tablet prior to discharge for her headache. Patient was made aware of her laboratory results and impression. Lab Data Attestation: I reviewed the patient's lab results. Labs: Laboratory Results - last 24 hr 07/08/22 07/08/22 20:08 20:40 WBC 7.4 RBC 4.96 Hgb 13.9 Hct 42.5 MCV 85.7 MCH 28.0 MCHC 32.7 RDW Std Deviation 43.2 RDW Coeff of [place] 13.9 Plt Count 278 MPV 10.1 Immature Gran % (Auto) 0.100 Neut % (Auto) 79.8 H Lymph % (Auto) 15.2 L [place] % (Auto) 4.3 Eos % (Auto) 0.3 Baso % (Auto) 0.3 Absolute Neuts (auto) 5.9 Absolute Lymphs (auto) 1.13 Nucleated RBC % 0 Sodium 140 Potassium 4.3 Chloride 108 H Carbon Dioxide 26.0 Anion Gap 6 BUN 20 H Creatinine 0.93 Estim Creat Clear Calc 43.01 Est GFR (MDRD) Af Amer 74 Est GFR (MDRD) Non-Af 61 BUN/Creatinine Ratio 21.5 H Glucose 126 H Calcium 10.4 H Discharge Plan Triage Chief Complaint: Abd Pain ED Provider: Geovanny Brito Dx/Rx/DC Orders Clinical Impression: Abdominal pain, Nausea & vomiting, Dehydration, mild, Generalized headache Instructions: ED Vomiting (Adult) Prescriptions: New ondansetron [ondansetron] 4 mg tablet,disintegrating 4 mg PO Q8H PRN PRN (Reason: Nausea) Qty: 10 0RF dicyclomine 10 mg capsule 20 mg PO TIDAC Qty: 20 0RF No Action amlodipine 5 mg tablet 5 mg PO DAILY simvastatin 20 MG tablet 20 mg PO QHS Label Comments: CHOLESTEROL LOWERING minocycline [Minocin] 50 MG capsule 50 mg PO DAILY Label Comments: ROSACEA timolol maleate 1 DROP drops 1 drp Each Eye DAILY Label Comments: GLAUCOMA lisinopril 10 MG tablet 10 mg PO DAILY cholecalciferol (vitamin D3) 1,250 mcg (50,000 unit) capsule 50,000 unit PO HERNÁNDEZ Label Comments: TAKE 1 CAPSULE BY MOUTH ONCE A WEEK lactulose 10 gram/15 mL solution 20 g PO BID Qty: 237 0RF omeprazole 20 mg capsule,delayed release(DR/EC) 20 mg PO DAILY Qty: 30 2RF Primary Care Provider: Harley Harding Referrals: Harley Harding MD [Primary Care Provider] - 3-5 Days if not improving Disposition Disposition: Home, Self Care
[2022-07-08 20:36] LABS: Anion Gap 6 (5-15); BUN 20 mg/dL (7-18); BUN/Creat Ratio 21.5 RATIO (10-20); Calcium,Total 10.4 mg/dL (8.5-10.1); Chloride 108 mmol/L (98-107); Creatinine, Serum 0.93 mg/dL (0.55-1.02); EST Glomerular Filtration Rate 61 mL/min (>60); Est Glom Filt Rate - Afr Amer 74 mL/min (>60); Estimated Creatinine Clearance 43.01 ml/min; Glucose 126 mg/dL (74-106); Potassium 4.3 mmol/L (3.5-5.1); Sodium Level 140 mmol/L (136-145)
[2022-07-08] MEDS: Ondansetron 4 MG/2 ML Vial IV (20:44)
[2022-07-08 20:50] LABS: Absolute Lymphocyte Count 1.13 X10^3/uL (0.83-4.51); Absolute Neutrophil Count 5.9 X10^3/uL (2.0-7.7); Basophil# 0.02 X10^3/uL; Basophil% 0.3 % (0-1); Eosinophil# 0.02 X10^3/uL; Eosinophils% 0.3 % (0-5); Hematocrit 42.5 % (37-47); Hemoglobin 13.9 g/dL (12.0-15.0); Lymphocyte # 1.13 X10^3/ul (0.83-4.51); Lymphocyte % 15.2 % (19-41); Mean Corp Hgb Conc 32.7 g/dL (32-36); Mean Corpuscular Volume 85.7 fL (81-99); Mean Platelet Vol. 10.1 fl (6.2-12.0); Monocyte# 0.32 X10^3/uL; Monocyte% 4.3 % (0-10); NRBC Flagged by Analyzer 0 % (0-5); Neutrophil # 5.92 X10^3/uL (2.7-7.7); Neutrophil % 79.8 % (47-70); Platelet Count 278 K/mm3 (150-450); RBC Distribution Width CV 13.9 % (11.6-14.6); RBC Distribution Width SD 43.2 fl (35.1-43.9); Red Blood Count 4.96 M/mm3 (4.2-5.4); White Blood Count 7.4 K/mm3 (4.4-11.0)
[2022-07-08 21:19] VITALS: BP 208/65; PULSE 81; RESP 18; O2SAT 99
[2022-07-08 22:01] VITALS: BP 180/66; PULSE 91
[2022-07-08 22:31] VITALS: BP 158/55
[2022-07-08 22:56] VITALS: BP 145/55; PULSE 69; RESP 14; O2SAT 97
[2022-07-08] MEDS: HYDROcodone Bitartrate/Apap 5/325 Tablet PO (23:17)
== END 2022-07-08 23:32 | disposition home or self-care (01) ==
PROVIDERS: Emergency Provider Emergency Medicine; PCP Family Medicine; Visit Provider Emergency Medicine
DX: R10.9 Unspecified abdominal pain (principal); R11.2 Nausea with vomiting, unspecified; I95.1 Orthostatic hypotension; E86.0 Dehydration; Z78.0 Asymptomatic menopausal state; Z87.891 Personal history of nicotine dependence
CPT/HCPCS: 80048; 85025; 96361; 96374; 99284; J7030; A4216; J2405

== ENCOUNTER 2022-09-21 11:30 | Outpatient (RCR) | payer MEDICARE, SELFPAY ==
--- NOTE | 2022-07-21 16:21 | HP.PTEVAL ---
Patient's Visit Information ZACKARY HAMILTON is a 86 year old F referred to Physical Therapy by Dr. Harley Harding MD with a diagnosis of LBP. Date of Evaluation: 07/21/22 Physical Therapist: Hector Holden PT, ATC - Visit Plan Frequency: 2x /Week Duration: 4-6 Weeks Plan: SKTC/DKTC, core stab ex's, B LE strengthening, balance ex's, nustep, and HEP - Subjective Pt reports she is referred here today with the Dx of LBP. However, pt reports she has no LBP at this time. Pt reports the reason she is here is due to B LE leg pain. Pt reports she has sciatica in her L LE, and SIJ pain in her R ant hip. Pt reports the pain in her L LE extends down to the mid snider region of her L anterior snider. Pt reports she has had recent x-rays of her LBP, which revealed no significant changes from an xray that was taken one year ago. Pt reports the pain in her legs makes her not want to walk much, which has resulted in less activity. this has caused her to become weak in her LE's and for her balance to become poor. Pt denies any recent falls. Pt reports no sleep difficulty at this time but notes on occasion she will awake secondary to L LE radiculopathy. Pt reports she has increased sx's in her LE's with prolonged standing and ambulation. Pt reports 85-90% of her pain goes away when she lies down. Pt reports L LE pain is 0/10 at rest, 9/10 pain at worst. R hip pain 0/10 at rest, 8/10 pain at worst - Pain L hip Pain Intensity (Out of 10): 0 Pain Intensity Range: 9 R hip Pain Intensity (Out of 10): 0 Pain Intensity Range: 8 - Objective Neuro: B LE sensation is WNL to light touch. B patellar reflex= 2/3. MMT: R LE is grossly 4/5 throughout while L LE is grossly 4-/5 throughout. ROM: Pt is severely limited with L/S extension. all other ranges are moderately limited. Repeated movements: RFIL decreases LBP. Gait: Pt ambulates with a slow cadance. Pt ambulates with the use of a cane. Pt reports ambulating after 120' fatigues her. - Balance/Special Test Scores Oswestry Low Back Score: 24 - Goals Goal 1:: Decrease B LE pain x 50% to aid with standing tolerance. 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 For Medicare and Medicare HMO plans, please review the plan of care and approve it. It will need to be FAXED BACK to us at [phone] for Medicare purposes. For Medicare only, by signing this I certify the plan of care. Please let me know if there are questions or concerns regarding this plan of care. Physician Signature: Date:
--- NOTE | 2022-08-18 13:40 | HP.PTREVAL ---
Dr. Harley Harding MD, It has been my pleasure to treat ZACKARY HAMILTON over the last 9 visits for LBP. Please see the progress note below for an update on the physical therapy plan of care! Subjective: Pt reports no pain currently, but pt notes pain is always a 10/10 by the evening Objective/Function: LBP ranges from 0-10/10. B LE strength is grossly 4-4+/5. Pt is able to ambulate 340 feet until needing a rest. Pt is progressing well at this time but would benefit from further strengthneing and balance activity Plan Plan: SKTC/DKTC, core stab ex's, B LE strengthening, balance ex's, nustep, and HEP Balance/Gait/Functional tests - Balance/Special Test Scores Oswestry Low Back Score: 25 Goals Goal 1:: Decrease B LE pain x 50% to aid with standing tolerance. Goal Time Frame: 4-6 Weeks Goal Progress: Progressing Goal 2:: Increase B LE strength x 1 grade to aid with increasing ambulation distance Goal Time Frame: 4-6 Weeks Goal Progress: Progressing Goal 3:: Pt will be able to ambulate greater than 600 feet to aid with community ambulation Goal Time Frame: 4-6 Weeks Goal Progress: Progressing Goal 4:: I with HEP Goal Time Frame: 4-6 Weeks Goal Progress: Progressing Anticipated Interventions Patient/Client Instruction: Educate patient on: Condition, Plan of Care For the Purpose of:: To improve self management Therapeutic Exercise to Include: Strength training, Postural training, Flexibilty training, Dynamic Lumbar Stabilization For the Purpose of:: To decrease pain, To increase ROM, To improve muscle performance and motor function Thermo therapy (hot pack): Yes For the Purpose of:: To decrease pain Please do not hesitate to contact me at [phone] by phone or if you have questions or concerns regarding this new plan of care! Sincerely, Hector Holden, PT, ATC
--- NOTE | 2022-09-21 12:14 | HP.PTDCSUM ---
It has been my pleasure to treat ZACKARY HAMILTON referred by Dr. Harley Harding MD, with the diagnosis of LBP for a total of 17 visit(s). Discharge Date: Please see the following information for a summary of their discharge status. Subjective: I dont really have pain today L hip Pain Intensity (Out of 10): 0 R hip Pain Intensity (Out of 10): 0 LB Pain Intensity (Out of 10): 0 % Improvement: 75 Objective/Function: LBP is 0/10. B LE strength is 5/5 throughout. Pt is able to ambulate greater than 680 feet to aid with community ambulation. I with HEP Goal 1:: Decrease B LE pain x 50% to aid with standing tolerance. Goal Progress: Goal Met Goal 2:: Increase B LE strength x 1 grade to aid with increasing ambulation distance Goal Progress: Goal Met Goal 3:: Pt will be able to ambulate greater than 600 feet to aid with community ambulation Goal Progress: Goal Met Goal 4:: I with HEP Goal Progress: Goal Met Plan: Discharge If there are questions or concerns regarding this patient's physical therapy, please feel free to call me at [phone]. Thank you for the referral of this patient. Sincerely, Hector Holden, PT, ATC Balance/Gait/Functional tests - Balance/Special Test Scores Oswestry Low Back Score: 25 Lower Extremity Functional Score: 41
== END 2022-09-21 13:35 | disposition home or self-care (01) ==
LOC: PT 11:30
PROVIDERS: PCP Family Medicine; Referring Provider Family Medicine; Visit Provider Family Medicine
DX: M54.9 Dorsalgia, unspecified (principal)
CPT/HCPCS: 97110; 97161; 97164

== ENCOUNTER 2022-09-23 17:35 | Emergency (ER) | payer MEDICARE, SELFPAY ==
[2022-09-23 17:36] VITALS: BP 152/97; PULSE 70; RESP 18; TEMP 36.4; O2SAT 100; BMI 27.3
--- NOTE | 2022-09-23 17:53 | EKG12_ITS ---
Test Reason : N/V Blood Pressure : / mmHG Vent. Rate : 062 BPM Atrial Rate : 062 BPM P-R Int : 162 ms QRS Dur : 104 ms QT Int : 412 ms P-R-T Axes : 055 -43 071 degrees QTc Int : 418 ms Normal sinus rhythm with sinus arrhythmia Left axis deviation Incomplete right bundle branch block Moderate voltage criteria for LVH, may be normal variant ( R in aVL , [place] product ) Septal infarct , age undetermined Abnormal ECG Confirmed by JAYCE NUNEZ, MEMO ([id number]), digital editor ABRAM PAEZ ([id number]) on 09/24/2022 9:26:01 AM Referred By: Confirmed By:MEMO EDUARDO MD
--- NOTE | 2022-09-23 17:56 | EX.ED.DYSGE1 ---
HPI History of Present Illness Chief Complaint: Nausea/Vomiting Informant: patient Onset/Context/Timing Onset: Days Context: Gradual Onset Narrative Narrative: Patient presents secondary to nausea and vomiting along with headache. She states she will get intermittent bouts of nausea and vomiting that have not been able to be explained. She has Zofran at home that has not been helping her. This episode of nausea and vomiting started yesterday. She states she usually she does not have a headache and she has had a significant headache since yesterday as well. She states its mostly behind her eyes and radiates down into her teeth. She reports mild abdominal pain with a band across the lower abdomen. She denies urinary symptoms. She has had a cough but does not feel short of breath. She does not believe she is had a fever but did not check it at home. [facility] Medical History Alcohol use Ambulates with cane Anxiety Arthritis Back pain Cancer Depression FH: total knee replacement Former smoker High cholesterol History of edema History of stress test Hypertension Post-menopausal Shortness of breath on exertion Wears dentures Wears glasses Home Medications minocycline 50 mg capsule (Minocin) 50 mg PO DAILY [place] 10/22/13 [History Last Taken Unknown] simvastatin 20 mg tablet 20 mg PO QHS cholesterol 10/22/13 [History Last Taken Unknown] timolol maleate 0.5 % eye drops 1 drp DAILY eye health 11/01/13 [History Last Taken Unknown] lisinopril 10 mg tablet 10 mg PO DAILY blood pressure 04/10/19 [History Last Taken Unknown] amlodipine 5 mg tablet 5 mg PO DAILY 05/17/22 [History Last Taken Unknown] cholecalciferol (vitamin D3) 1,250 mcg (50,000 unit) capsule 50,000 unit PO HERNÁNDEZ 07/05/22 [History Last Taken Unknown] omeprazole 20 mg capsule,delayed release 20 mg PO DAILY #30 caps 07/07/22 [Rx Last Taken Unknown] ondansetron 4 mg disintegrating tablet 4 mg PO Q8H PRN PRN Nausea #10 tabs 07/08/22 [Rx Last Taken Unknown] Allergy/AdvReac Type Severity Reaction Status Date / Time morphine AdvReac Intermediate Inflammation Verified 09/23/22 17:35 of vein Surgical History H/O breast biopsy H/O removal of cyst History of abdominal surgery Hx of bilateral cataract extraction Hx of dilation and curettage Hx of external ear surgery Social History household members: spouse Smoking Status: Former smoker alcohol intake: current ROS ROS ED Constitutional Constitutional ED: Denies chills or fever(s) Eyes Eyes: Denies change in vision or discharge from eye(s) ENT ENT ED: Denies discharge from eye(s), rhinorrhea or sore throat Cardiovascular Cardiovascular: Denies chest pain or palpitations Respiratory/Chest Respiratory/Chest: Reports cough; Denies dyspnea Gastrointestinal Gastrointestinal: Reports abdominal pain, nausea and vomiting; Denies diarrhea Genitourinary Genitourinary ED: Denies dysuria Musculoskeletal Musculoskeletal: Denies back pain or extremity pain Integumentary Denies Abrasions or rash Neurologic Neurologic: Reports headache(s); Denies weakness Psychiatric Psychiatric: Denies anxiety or depression Allergic/Immunologic Allergic/Immunologic ED: Denies tongue swelling or urticaria EXAM Physical Exam Const Vital Signs: 09/23/22 17:36 Temperature 97.6 F L Temperature Source Temporal Pulse Rate 70 Respiratory Rate 18 Blood Pressure 152/97 H Blood Pressure Mean 115 Pulse Ox 100 Oxygen Delivery Method Room Air Positive well nourished and well developed General Appearance ED: well developed HEENT Reports normocephalic and head/scalp atraumatic Eyes PERRL and EOMs intact bilaterally Neck supple Chest Wall inspection of chest normal and palpation of chest normal Resp normal respiratory effort and clear to auscultation bilaterally Cardio regular rate and regular rhythm GI non-tender Auscultation: hypoactive bowel sounds Palpation: soft Extremity normal to inspection Neuro oriented x3 and no sensory deficits noted Sensorium / Orientation: alert Motor Exam: strength 5/5 throughout Psych mental status grossly normal Skin no rashes or lesions noted MDM MDM MDM Narrative Medical decision making narrative: Patient was given Toradol, Reglan, Benadryl, IV fluids. Lab work obtained along with EKG and chest x-ray. COVID test obtained. Lab Data Attestation: I reviewed the patient's lab results. Labs: Laboratory Results - last 24 hr 09/23/22 09/23/22 09/23/22 18:27 18:27 18:30 WBC 7.1 RBC 4.92 Hgb 14.1 Hct 40.9 MCV 83.1 MCH 28.7 MCHC 34.5 RDW Std Deviation 40.5 RDW Coeff of [place] 13.5 Plt Count 276 MPV 10.1 Immature Gran % (Auto) 0.100 Neut % (Auto) 73.0 H Lymph % (Auto) 17.9 L [place] % (Auto) 7.7 Eos % (Auto) 1.0 Baso % (Auto) 0.3 Absolute Neuts (auto) 5.2 Absolute Lymphs (auto) 1.28 Nucleated RBC % 0 Sodium 139 Potassium 4.3 Chloride 107 Carbon Dioxide 25.0 Anion Gap 7 BUN 19 H Creatinine 0.84 Estim Creat Clear Calc 46.75 Est GFR (MDRD) Af Amer 83 Est GFR (MDRD) Non-Af 68 BUN/Creatinine Ratio 22.6 H Glucose 115 H Calcium 10.2 H Urine Color Yellow Urine Clarity Clear Urine pH 5.0 Ur Specific [place] 1.025 Urine Protein 30 H Urine Glucose (UA) Normal Urine Ketones 5 H Urine Occult Blood 25 H Urine Nitrite Negative Urine Bilirubin Negative Urine Urobilinogen Normal Ur Leukocyte Esterase Negative Urine RBC 0-5 SEEN Urine WBC 0 SEEN Ur Squamous Epith Cells 0-5 SEEN Calcium Oxalate Crystal 3+ Urine Bacteria 0 SEEN Urine Mucus 0 SEEN Radiography Chest X-Ray - ED: 1 View, Read by ED Physician, Normal, Heart, Lungs and Mediastinum Diagnostic Testing: Clinical Impression(s) from Imaging Studies Chest X-Ray 09/23/22 18:37 IMPRESSION: Normal x-ray examination of the chest. Electronically Signed: Feroz Reynoso MD at 18:55 EDT , EKG Initial EKG: Attestation: I personally reviewed and interpreted this EKG as follows: Interpretation: Sinus Rhythm (Sinus at 62 with no acute ischemia.) Treatment and Re-Evaluation Narrative: On repeat evaluation patient feels significantly improved. Lab work is unremarkable. Urinalysis reveals calcium oxalate crystals but no sign of infection. Chest x-ray per my interpretation reveals no infiltrate. Radiology interpretation is reviewed. EKG reveals no ischemia. COVID test is negative. Test results are discussed with patient and at bedside. She will continue supportive care at home. She has Zofran at home to use for nausea as well. Discharge Plan Triage Chief Complaint: Nausea/Vomiting ED Provider: Imani Knight Dx/Rx/DC Orders Clinical Impression: Viral syndrome Instructions: ED Viral Syndrome (Adult) Prescriptions: No Action amlodipine 5 mg tablet 5 mg PO DAILY simvastatin 20 MG tablet 20 mg PO QHS Label Comments: CHOLESTEROL LOWERING minocycline [Minocin] 50 MG capsule 50 mg PO DAILY Label Comments: ROSACEA timolol maleate 1 DROP drops 1 drp Each Eye DAILY Label Comments: GLAUCOMA lisinopril 10 MG tablet 10 mg PO DAILY cholecalciferol (vitamin D3) 1,250 mcg (50,000 unit) capsule 50,000 unit PO HERNÁNDEZ Label Comments: TAKE 1 CAPSULE BY MOUTH ONCE A WEEK ondansetron [ondansetron] 4 mg tablet,disintegrating 4 mg PO Q8H PRN PRN (Reason: Nausea) Qty: 10 0RF omeprazole 20 mg capsule,delayed release(DR/EC) 20 mg PO DAILY Qty: 30 2RF Primary Care Provider: Harley Harding Referrals: Harley Harding MD [Primary Care Provider] - 1 Week if not improving Disposition Disposition: Home, Self Care
[2022-09-23 18:35] LABS: Absolute Lymphocyte Count 1.28 X10^3/uL (0.83-4.51); Absolute Neutrophil Count 5.2 X10^3/uL (2.0-7.7); Basophil# 0.02 X10^3/uL; Basophil% 0.3 % (0-1); Eosinophil# 0.07 X10^3/uL; Hematocrit 40.9 % (37-47); Hemoglobin 14.1 g/dL (12.0-15.0); Lymphocyte # 1.28 X10^3/ul (0.83-4.51); Lymphocyte % 17.9 % (19-41); Mean Corp Hgb Conc 34.5 g/dL (32-36); Mean Corpuscular Hgb 28.7 pg (27.0-32.0); Mean Corpuscular Volume 83.1 fL (81-99); Mean Platelet Vol. 10.1 fl (6.2-12.0); Monocyte# 0.55 X10^3/uL; Monocyte% 7.7 % (0-10); NRBC Flagged by Analyzer 0 % (0-5); Neutrophil # 5.21 X10^3/uL (2.7-7.7); Platelet Count 276 K/mm3 (150-450); RBC Distribution Width CV 13.5 % (11.6-14.6); RBC Distribution Width SD 40.5 fl (35.1-43.9); Red Blood Count 4.92 M/mm3 (4.2-5.4); White Blood Count 7.1 K/mm3 (4.4-11.0)
[2022-09-23 18:36] LABS: Bacteria 0 SEEN /hpf (None Seen); Mucous, Urine 0 SEEN /hpf (<or=2+); White Blood Cells 0 SEEN /hpf (0-5)
[2022-09-23] MEDS: 0.9% Normal Saline 1,000 ML 150 ML IV (18:37)
--- NOTE | 2022-09-23 18:37 | RAD_ITS ---
STUDY: X-RAY CHEST REASON FOR EXAM: Female, 87 years old. cough TECHNIQUE: Single AP portable view of the chest. COMPARISON: None. FINDINGS: The lungs are clear and expanded. There is no demonstrated pleural abnormality. Normal size heart. Normal mediastinum and clemente. Normal visualized pulmonary arteries. Normal visualized aortic arch and descending thoracic aorta. Normal visualized thoracic spine. Normal visualized ribs, clavicles, and shoulders. There is no demonstrated abnormality of the visualized soft tissue structures of the upper abdomen. RAD/Chest 1 View (Portable) IMPRESSION: Normal x-ray examination of the chest. Electronically Signed: Feroz Reynoso MD at 18:55 EDT ,
[2022-09-23] MEDS: DiphenhydrAMINE 50 MG/ML Syringe 12.5 MG IV (18:48)
[2022-09-23] MEDS: Metoclopramide 10 MG/2 ML Vial 5 MG IV (18:50)
[2022-09-23] MEDS: Ketorolac 15 MG/ML Vial IV (18:50)
[2022-09-23 18:51] LABS: Anion Gap 7 (5-15); BUN 19 mg/dL (7-18); BUN/Creat Ratio 22.6 RATIO (10-20); Calcium,Total 10.2 mg/dL (8.5-10.1); Chloride 107 mmol/L (98-107); Creatinine, Serum 0.84 mg/dL (0.55-1.02); EST Glomerular Filtration Rate 68 mL/min (>60); Est Glom Filt Rate - Afr Amer 83 mL/min (>60); Estimated Creatinine Clearance 46.75 ml/min; Glucose 115 mg/dL (74-106); Potassium 4.3 mmol/L (3.5-5.1); Sodium Level 139 mmol/L (136-145)
[2022-09-23 19:10] LABS: Color, Urine Yellow (Yellow); Glucose, Dipstick Normal (Normal); Ketone-Dipstick 5 mg/dl (Negative); Leukocyte Esterase-Dipstick Negative /ul (Negative); Nitrite-Dipstick Negative (Negative); Occult Blood-Urine 25 /ul (Negative); Protein-Dipstick 30 mg/dl (Negative); Specific Gravity, Urine 1.025 (1.002-1.030); Urine Bilirubin Dipstick Negative (Negative); Urine Clarity Clear (Clear); Urine Urobilinogen Normal (Normal)
[2022-09-23 19:28] LABS: Red Blood Cells-Urine 0-5 SEEN /hpf (0-5)
[2022-09-23 19:29] LABS: Calcium Oxalate Crystals Ur 3+ /hpf (<or=2+); Squamous Epithelial Cells - UA 0-5 SEEN /hpf (5-10)
[2022-09-23] MEDS: Acetaminophen 500 MG Tablet 1000 MG PO (20:45)
== END 2022-09-23 20:46 | disposition home or self-care (01) ==
PROVIDERS: Emergency Provider Emergency Medicine; PCP Family Medicine; Visit Provider Emergency Medicine
DX: B34.9 Viral infection, unspecified (principal); R11.2 Nausea with vomiting, unspecified; Z20.822 Contact with and (suspected) exposure to COVID-19; R10.9 Unspecified abdominal pain; R05.9 Cough, unspecified; M19.90 Unspecified osteoarthritis, unspecified site; F32.A Depression, unspecified; Z78.0 Asymptomatic menopausal state; Z79.899 Other long term (current) drug therapy; Z87.891 Personal history of nicotine dependence
CPT/HCPCS: 71045; 80048; 81001; 85025; 87811; 93005; 96361; 96374; 96375; 99284

== ENCOUNTER → 2022-12-15 | Outpatient (CLI) | payer MEDICARE, SELFPAY ==
--- NOTE | 2022-12-15 12:47 | MRI_ITS ---
STUDY: MRI LUMBAR SPINE WITHOUT CONTRAST REASON FOR EXAM: Female, 87 years old. DDD TECHNIQUE: Standardized fat and water weighted pulse sequences were obtained in the sagittal and axial planes. COMPARISON: None FINDINGS: No evidence for acute fracture or subluxation. Interosseous hemangioma within the L1 vertebral body. T12-L1: Normal endplates. Normal disc height, desiccation and minor annular bulge. Normal bilateral facet joints. Normal central canal and bilateral lateral recesses. Normal bilateral intervertebral neural foramina. Normal lumbar lordosis. There is no substantial scoliosis. Normal conus medullaris that terminates at T12-L1 L1-2: Grade 1 retrolisthesis. Narrowed disc space with desiccation of the disc and mild bulging disc osteophyte complex with right posterolateral/foraminal disc protrusion.. Facet arthropathy and thickening of ligamenta flava more pronounced on the right Moderate central canal stenosis secondary to disc and exaggerated by posterior epidural fat pad.. Severe right lateral recess and neural foraminal stenosis. Moderate left neural foraminal stenosis L2-3: Narrowed disc space with desiccation of disc and minimal bulging disc osteophyte complex. Mild facet arthropathy and thickening of ligamenta flava. Mild narrowing the central canal exaggerated by posterior epidural fat pad. Mild to moderate bilateral recess and neural foraminal stenosis. L3-4: Normal endplates. Normal disc height, desiccation and normal morphology. Facet arthropathy and thickening of ligamenta flava.. Normal central canal. Minor bilateral lateral recess and neural foraminal encroachment.. L4-5: Grade 1 spondylolisthesis. Narrowed disc space with desiccation of the disc and mild bulging disc osteophyte complex with left foraminal disc protrusion. Disc protrusion. Facet arthropathy and thickening of ligamenta flava more severe on the left. Mild to moderate narrowing the central canal. Moderate to severe right lateral recess and neural foraminal stenosis with more severe narrowing of the left L5-S1: Grade 1 spondylolisthesis Narrowed disc space with desiccation of the disc and mild bulging disc osteophyte complex. Facet arthropathy and thickening of ligamenta flava more severe on the left. Normal central canal and bilateral lateral recesses.. Mild bilateral neural foraminal encroachment Normal visualized sacral ala. Incidental finding of bilateral adrenal nodules most likely cysts. Ultrasound recommended for more definitive evaluation if clinically warranted Normal visualized paraspinous soft tissue structures. MRI/Spine Lumbar (Routine) IMPRESSION: No evidence for acute fracture or other significant bony pathology.. Spondylosis and multilevel spinal stenosis secondary to disc disease and bony hypertrophy most severe on the left L4-5 Findings as above Electronically Signed: Ady Anderson MD at 17:21 EST ,
== END | disposition home or self-care (01) ==
LOC: MRI 12:43
PROVIDERS: PCP Family Medicine; Referring Provider Family Medicine; Visit Provider Family Medicine
DX: M51.36 Other intervertebral disc degeneration, lumbar region (principal)
CPT/HCPCS: 72148

== ENCOUNTER → 2022-12-21 | Outpatient (CLI) | payer MEDICARE, SELFPAY ==
[2022-12-21 17:47] LABS: Absolute Lymphocyte Count 1.66 X10^3/uL (0.83-4.51); Absolute Neutrophil Count 3.8 X10^3/uL (2.0-7.7); Basophil# 0.03 X10^3/uL; Basophil% 0.5 % (0-1); Eosinophil# 0.18 X10^3/uL; Eosinophils% 2.9 % (0-5); Hematocrit 41.4 % (37-47); Hemoglobin 13.1 g/dL (12.0-15.0); Lymphocyte # 1.66 X10^3/ul (0.83-4.51); Lymphocyte % 26.4 % (19-41); Mean Corp Hgb Conc 31.6 g/dL (32-36); Mean Corpuscular Volume 88.5 fL (81-99); Mean Platelet Vol. 10.7 fl (6.2-12.0); Monocyte# 0.59 X10^3/uL; Monocyte% 9.4 % (0-10); NRBC Flagged by Analyzer 0 % (0-5); Neutrophil # 3.81 X10^3/uL (2.7-7.7); Neutrophil % 60.5 % (47-70); Platelet Count 266 K/mm3 (150-450); RBC Distribution Width CV 13.8 % (11.6-14.6); RBC Distribution Width SD 44.9 fl (35.1-43.9); Red Blood Count 4.68 M/mm3 (4.2-5.4); White Blood Count 6.3 K/mm3 (4.4-11.0)
[2022-12-21 18:16] LABS: Vitamin D,25 Hydroxy 79.4 ng/mL
[2022-12-21 18:28] LABS: ALB/GLOB Ratio 1.1 RATIO (0.9-2.4); AST(SGOT) 17 U/L (15-37); Alanine Aminotransfer ALT/SGPT 23 U/L (13-56); Albumin, Serum 3.6 g/dL (3.2-5.0); Alkaline Phosphatase 83 U/L (45-117); Anion Gap 7 (5-15); BUN 27 mg/dL (7-18); BUN/Creat Ratio 33.2 RATIO (10-20); Calcium,Total 10.1 mg/dL (8.5-10.1); Chloride 106 mmol/L (98-107); Creatinine, Serum 0.81 mg/dL (0.55-1.02); EST Glomerular Filtration Rate 71 mL/min (>60); Est Glom Filt Rate - Afr Amer 86 mL/min (>60); Globulin 3.2 g/dL (2.2-4.2); Glucose 76 mg/dL (74-106); Potassium 4.2 mmol/L (3.5-5.1); Protein, Total 6.8 g/dL (6.4-8.2); Sodium Level 140 mmol/L (136-145)
[2022-12-21 18:34] LABS: Erythrocyte Sedimentation Rate 6 mm/hr (0-30)
== END | disposition home or self-care (01) ==
LOC: MFPLAB 14:47
PROVIDERS: PCP Family Medicine; Referring Provider Family Medicine; Visit Provider Family Medicine
DX: R11.10 Vomiting, unspecified (principal); E55.9 Vitamin D deficiency, unspecified
CPT/HCPCS: 36415; 80053; 82306; 85025; 85652

== ENCOUNTER 2023-04-05 13:21 | Outpatient (CLI) | payer MEDICARE, SELFPAY ==
--- NOTE | 2023-04-05 13:23 | RAD_ITS ---
STUDY: X-RAY - ACUTE ABDOMINAL SERIES REASON FOR EXAM: Female, 87 years old. Vomiting. TECHNIQUE: Single view of the chest. Supine, and erect view(s) of the abdomen were obtained. COMPARISON: Chest dated September 23, 2022. FINDINGS: Stable hyperinflation. Cardiomegaly with aortic tortuosity unchanged. Nonspecific bowel gas pattern with multiple small air-fluid levels projecting over the right upper quadrant. Air seen to the rectosigmoid. Multiple clips in the left lower quadrant and left pelvis. Osteopenia of the bony structures with moderate lumbosacral spondylosis with levoscoliosis. No acute abnormality. RAD/Acute Abdomen Inc Chest IMPRESSION: Stable chest with no acute abnormality of the chest or abdomen. Electronically Signed: Charles Edouard, at 10:27 EDT ,
[2023-04-05 15:34] LABS: Absolute Lymphocyte Count 1.24 X10^3/uL (0.83-4.51); Absolute Neutrophil Count 3.9 X10^3/uL (2.0-7.7); Basophil# 0.02 X10^3/uL; Basophil% 0.4 % (0-1); Eosinophil# 0.11 X10^3/uL; Eosinophils% 1.9 % (0-5); Hematocrit 40.2 % (37-47); Hemoglobin 13.2 g/dL (12.0-15.0); Lymphocyte # 1.24 X10^3/ul (0.83-4.51); Lymphocyte % 21.7 % (19-41); Mean Corp Hgb Conc 32.8 g/dL (32-36); Mean Corpuscular Hgb 28.6 pg (27.0-32.0); Mean Corpuscular Volume 87.2 fL (81-99); Mean Platelet Vol. 10.7 fl (6.2-12.0); Monocyte# 0.44 X10^3/uL; Monocyte% 7.7 % (0-10); NRBC Flagged by Analyzer 0 % (0-5); Neutrophil # 3.89 X10^3/uL (2.7-7.7); Neutrophil % 68.1 % (47-70); Platelet Count 252 K/mm3 (150-450); RBC Distribution Width CV 13.3 % (11.6-14.6); RBC Distribution Width SD 42.4 fl (35.1-43.9); Red Blood Count 4.61 M/mm3 (4.2-5.4); White Blood Count 5.7 K/mm3 (4.4-11.0)
[2023-04-05 16:00] LABS: Erythrocyte Sedimentation Rate 2 mm/hr (0-30)
[2023-04-05 16:17] LABS: ALB/GLOB Ratio 1.3 RATIO (0.9-2.4); AST(SGOT) 16 U/L (15-37); Alanine Aminotransfer ALT/SGPT 20 U/L (13-56); Albumin, Serum 3.7 g/dL (3.2-5.0); Alkaline Phosphatase 79 U/L (45-117); Anion Gap 6 (5-15); BUN 23 mg/dL (7-18); BUN/Creat Ratio 30.2 RATIO (10-20); Chloride 108 mmol/L (98-107); Creatinine, Serum 0.76 mg/dL (0.55-1.02); EST Glomerular Filtration Rate 76 mL/min (>60); Est Glom Filt Rate - Afr Amer 92 mL/min (>60); Globulin 2.9 g/dL (2.2-4.2); Glucose 89 mg/dL (74-106); Potassium 4.1 mmol/L (3.5-5.1); Protein, Total 6.6 g/dL (6.4-8.2); Sodium Level 140 mmol/L (136-145); Thyroid Stim Hormone (TSH) 0.67 uIU/mL (0.358-3.74)
[2023-04-07 06:09] LABS: H. Pylori Antibody (IgG) 0.11 (0.00-0.79)
[2023-04-10 09:05] LABS: Amylase 65 U/L (25-115); Lipase 40 U/L (13-75)
== END 2023-04-05 23:59 | disposition home or self-care (01) ==
LOC: MTLAB 13:22
PROVIDERS: PCP Family Medicine; Referring Provider Family Medicine; Visit Provider Family Medicine
DX: R11.10 Vomiting, unspecified (principal); I10 Essential (primary) hypertension
CPT/HCPCS: 36415; 74022; 80053; 82150; 83690; 84443; 85025; 85652; 86677

== ENCOUNTER → 2023-04-10 | Outpatient (CLI) | payer MEDICARE, SELFPAY ==
[2023-04-11 08:19] LABS: PTHIN 131.5 pg/mL (18.4-80.1)
== END | disposition home or self-care (01) ==
LOC: MTLAB 16:15
PROVIDERS: PCP Family Medicine; Referring Provider Family Medicine; Visit Provider Family Medicine
DX: R11.10 Vomiting, unspecified (principal)
CPT/HCPCS: 36415; 83970

== ENCOUNTER → 2023-04-17 | Outpatient (CLI) | payer MEDICARE, SELFPAY ==
[2023-04-17 18:33] LABS: Vitamin D,25 Hydroxy 51.7 ng/mL
[2023-04-17 18:45] LABS: Amylase 68 U/L (25-115); Anion Gap 6 (5-15); BUN 27 mg/dL (7-18); BUN/Creat Ratio 33.9 RATIO (10-20); Calcium,Total 9.5 mg/dL (8.5-10.1); Chloride 111 mmol/L (98-107); EST Glomerular Filtration Rate 73 mL/min (>60); Est Glom Filt Rate - Afr Amer 88 mL/min (>60); Glucose 101 mg/dL (74-106); Lipase 34 U/L (13-75); Magnesium 2.1 mg/dL (1.6-2.6); Phosphorus 2.7 mg/dL (2.5-4.9); Potassium 4.2 mmol/L (3.5-5.1); Sodium Level 141 mmol/L (136-145)
== END | disposition home or self-care (01) ==
LOC: MTLAB 16:09
PROVIDERS: PCP Family Medicine; Referring Provider Family Medicine; Visit Provider Family Medicine
DX: R11.10 Vomiting, unspecified (principal); E34.9 Endocrine disorder, unspecified
CPT/HCPCS: 36415; 80048; 82150; 82306; 82330; 83690; 83735; 84100

== ENCOUNTER → 2023-06-13 | Outpatient (CLI) | payer MEDICARE, SELFPAY ==
[2023-06-13 18:23] LABS: Absolute Lymphocyte Count 1.35 X10^3/uL (0.83-4.51); Absolute Neutrophil Count 2.7 X10^3/uL (2.0-7.7); Basophil# 0.02 X10^3/uL; Basophil% 0.4 % (0-1); Eosinophil# 0.06 X10^3/uL; Eosinophils% 1.3 % (0-5); Hemoglobin 12.9 g/dL (12.0-15.0); Lymphocyte # 1.35 X10^3/ul (0.83-4.51); Lymphocyte % 29.7 % (19-41); Mean Corp Hgb Conc 32.3 g/dL (32-36); Mean Corpuscular Hgb 28.2 pg (27.0-32.0); Mean Corpuscular Volume 87.5 fL (81-99); Mean Platelet Vol. 10.2 fl (6.2-12.0); Monocyte# 0.36 X10^3/uL; Monocyte% 7.9 % (0-10); NRBC Flagged by Analyzer 0 % (0-5); Neutrophil # 2.73 X10^3/uL (2.7-7.7); Neutrophil % 60.3 % (47-70); Platelet Count 259 K/mm3 (150-450); RBC Distribution Width CV 13.5 % (11.6-14.6); RBC Distribution Width SD 43.2 fl (35.1-43.9); Red Blood Count 4.57 M/mm3 (4.2-5.4); White Blood Count 4.5 K/mm3 (4.4-11.0)
[2023-06-13 18:39] LABS: Microalbumin,Random Urine 69.9 mg/L (NO RANGE EST.)
[2023-06-13 18:57] LABS: Erythrocyte Sedimentation Rate < 1 mm/hr (0-30)
[2023-06-13 19:01] LABS: AST(SGOT) 25 U/L (15-37); Alanine Aminotransfer ALT/SGPT 25 U/L (13-56); Albumin, Serum 3.6 g/dL (3.2-5.0); Alkaline Phosphatase 83 U/L (45-117); Anion Gap 6 (5-15); BUN 20 mg/dL (7-18); BUN/Creat Ratio 22.5 RATIO (10-20); CRP < 2.90 mg/L (0.0-3.0); Calcium,Total 9.8 mg/dL (8.5-10.1); Chloride 111 mmol/L (98-107); Creatinine, Serum 0.89 mg/dL (0.55-1.02); EST Glomerular Filtration Rate 64 mL/min (>60); Est Glom Filt Rate - Afr Amer 77 mL/min (>60); Globulin 2.9 g/dL (2.2-4.2); Glucose 89 mg/dL (74-106); Potassium 3.5 mmol/L (3.5-5.1); Protein, Total 6.5 g/dL (6.4-8.2); Sodium Level 143 mmol/L (136-145); T4 Free Direct 1.26 ng/dL (0.76-1.46)
[2023-06-14 08:44] LABS: PTHIN 85.3 pg/mL (18.4-80.1)
== END | disposition home or self-care (01) ==
PROVIDERS: PCP Family Medicine; Referring Provider Family Medicine; Visit Provider Family Medicine
DX: Z00.00 Encounter for general adult medical examination without abnormal findings (principal); E34.9 Endocrine disorder, unspecified; R60.0 Localized edema
CPT/HCPCS: 80048; 80076; 82043; 83880; 83970; 84439; 84443; 85025; 85652; 86140

== ENCOUNTER → 2023-08-08 | Outpatient (CLI) | payer MEDICARE, SELFPAY ==
--- NOTE | 2023-08-08 12:59 | US_ITS ---
STUDY: THYROID ULTRASOUND REASON FOR EXAM: Female, 87 years old. L sided nodule TECHNIQUE: Ultrasound evaluation of the thyroid was performed with real-time and static miranda-scale imaging. COMPARISON: None. FINDINGS: RIGHT LOBE: The right lobe of the thyroid gland measures 9.5 x 3.4 x 3.6 cm. There is a heterogeneous echotexture and multiple solid nodules 2 largest measuring 1.8 x 1.8 x 1.2 cm in the upper pole and 1.8 x 1.5 x 1.3 cm in the lower pole . LEFT LOBE: The left lobe of the thyroid gland measures 7.5 x 5.3 x 3.4 cm. There is a heterogeneous echotexture. There is a large dominant nodule measuring 5 x 4.7 x 2.8 cm demonstrating mixed solid cystic appearance with regular margins and yonis nodular vascularity. ISTHMUS: The isthmus measures 10 mm . There is a complex nodule measuring 9 x 7 x 7 mm. The regional lymph nodes are normal. US/Thyroid IMPRESSION: Findings consistent with multinodular goiter. There is a dominant nodule in the left lobe measuring 5 x 4.7 x 2.8 cm which may be required fine-needle aspiration or removal if clinically warranted. Alternatively radionuclide thyroid scan may be useful for further evaluation. Electronically Signed: Ady Anderson MD at 18:59 EDT ,
== END | disposition home or self-care (01) ==
LOC: US 12:56
PROVIDERS: PCP Family Medicine; Referring Provider Family Medicine; Visit Provider Family Medicine
DX: E04.9 Nontoxic goiter, unspecified (principal)
CPT/HCPCS: 76536

== ENCOUNTER → 2023-08-29 | Outpatient (CLI) | payer MEDICARE, SELFPAY ==
--- NOTE | 2023-08-29 | ASPSI_PTH ---
PATIENT: ZACKARY HAMILTON LOC: [facility] U#:[id number] AGE/SX: 87/F ROOM: RE08/29/[address]: Dr. Luis Drew MD : [id number] BED: DIS: 08/29/2023 SPEC #: [id number] RECD: 08/30/23 10:20 STATUS: RICARDO NI #: [id number] BEBE: 08/29/23 00:[address]: Luis Drew DEPT: CYTOLOGY RECD BY: Juanjo Recio ENTERED: 08/30/23 10:22 SP TYPE: ASP MURPHY GONZALEZ DR: Dr. Edis Harding MD Tissues: A - Thyroid gland, NOS B - Thyroid gland, NOS C - Thyroid gland, NOS D - Thyroid gland, NOS E - Thyroid gland, NOS Procedures: Surgery Specimen Level IV Cytospin Fluid Cytology Other HEADER OPERATION: Fine needle aspiration of thyroid nodules, right and left PRE-OP DIAGNOSIS: Thyroid nodules TISSUE SUBMITTED: A - Right lower thyroid fluid, B - Right lower thyroid x4 slides, C - Left thyroid fluid, D - Left thyroid x4 slides, E - Left thyroid fluid, syringe DIAGNOSIS CYTOLOGY A. Right lower thyroid fluid, fine needle aspiration (cytospin and cell block): Negative for malignant cells. B. Right lower thyroid, fine needle aspiration (smears): Consistent with benign follicular/colloid nodule (Blunt Category II). Adequate for evaluation. See comment. C. Left thyroid fluid, fine needle aspiration (cytospin and cell block): Consistent with benign follicular/colloid nodule (Blunt Category II). Adequate for evaluation. See comment. D. Left thyroid, fine needle aspiration (smears): Consistent with benign follicular/colloid nodule (Blunt Category II). Adequate for evaluation. See comment. E. Left thyroid fluid, fine needle aspiration (cytospin and cell block): Nondiagnostic specimen (Blunt Category I). Cyst fluid only. See comment. SJ:rg 08/31/2023 COMMENT E. The specimen predominantly consists of macrophages. Correlation with clinical, radiologic findings and appropriate follow up are necessary. CYTOLOGY STUDY Slides are reviewed. CYTOLOGY GROSS A - Received is 30 ml of light red fluid labeled with the patient's name and and designated per the requisition as right lower thyroid. Submitted for cytology preparation including cell block. B - Received are four smears labeled with the patient's name and designated per the requisition as right lower thyroid. Submitted for staining. C - Received is 30 ml of light red fluid labeled with the patient's name and and designated per the requisition as left thyroid. Submitted for cytology preparation including cell block. D - Received are four smears labeled with the patient's name and designated per the requisition as left thyroid. Submitted for staining. E - Received in a syringe is 15 ml of red fluid labeled with the patient's name and and designated per the requisition as left thyroid. Submitted for cytology preparation including cell block. / efrain 08/30/2023 TC: CPT: 16360 x5, 50895 x3
== END | disposition home or self-care (01) ==
LOC: LABSPEC 08-30 07:42
PROVIDERS: PCP Family Medicine; Referring Provider Surgery; Visit Provider Surgery
DX: E04.1 Nontoxic single thyroid nodule (principal)
CPT/HCPCS: 88108; 88161; 88305

== ENCOUNTER → 2023-09-13 | Outpatient (CLI) | payer MEDICARE, SELFPAY ==
[2023-09-13 17:37] LABS: Absolute Lymphocyte Count 1.48 X10^3/uL (0.83-4.51); Absolute Neutrophil Count 2.8 X10^3/uL (2.0-7.7); Basophil# 0.02 X10^3/uL; Basophil% 0.4 % (0-1); Eosinophil# 0.11 X10^3/uL; Eosinophils% 2.3 % (0-5); Hematocrit 38.9 % (37-47); Hemoglobin 12.1 g/dL (12.0-15.0); Lymphocyte # 1.48 X10^3/ul (0.83-4.51); Lymphocyte % 31.2 % (19-41); Mean Corp Hgb Conc 31.1 g/dL (32-36); Mean Corpuscular Hgb 27.5 pg (27.0-32.0); Mean Corpuscular Volume 88.4 fL (81-99); Mean Platelet Vol. 10.9 fl (6.2-12.0); Monocyte# 0.33 X10^3/uL; Monocyte% 6.9 % (0-10); NRBC Flagged by Analyzer 0 % (0-5); Neutrophil # 2.79 X10^3/uL (2.7-7.7); Neutrophil % 58.8 % (47-70); Platelet Count 292 K/mm3 (150-450); RBC Distribution Width CV 13.4 % (11.6-14.6); RBC Distribution Width SD 44.1 fl (35.1-43.9); White Blood Count 4.8 K/mm3 (4.4-11.0)
[2023-09-13 17:48] LABS: Erythrocyte Sedimentation Rate 3 mm/hr (0-30)
[2023-09-13 18:18] LABS: ALB/GLOB Ratio 1.1 RATIO (0.9-2.4); AST(SGOT) 13 U/L (15-37); Alanine Aminotransfer ALT/SGPT 17 U/L (13-56); Albumin, Serum 3.3 g/dL (3.2-5.0); Alkaline Phosphatase 74 U/L (45-117); Anion Gap 5 (5-15); BUN 23 mg/dL (7-18); BUN/Creat Ratio 29.2 RATIO (10-20); CRP < 2.90 mg/L (0.0-3.0); Calcium,Total 9.3 mg/dL (8.5-10.1); Chloride 111 mmol/L (98-107); Creatinine, Serum 0.79 mg/dL (0.55-1.02); EST Glomerular Filtration Rate 73 mL/min (>60); Est Glom Filt Rate - Afr Amer 89 mL/min (>60); Free T3 2.8 pg/mL (2.18-3.98); Glucose 93 mg/dL (74-106); Magnesium 1.8 mg/dL (1.6-2.6); Potassium 3.6 mmol/L (3.5-5.1); Protein, Total 6.3 g/dL (6.4-8.2); Sodium Level 141 mmol/L (136-145); Thyroid Stim Hormone (TSH) 0.44 uIU/mL (0.358-3.74)
== END | disposition home or self-care (01) ==
LOC: MFPLAB 14:16
PROVIDERS: PCP Family Medicine; Visit Provider Family Medicine
DX: E04.1 Nontoxic single thyroid nodule (principal); M79.10 Myalgia, unspecified site
CPT/HCPCS: 36415; 80053; 83735; 84439; 84443; 84481; 85025; 85652; 86140

== ENCOUNTER 2023-10-22 05:52 | Inpatient (IN) | payer MEDICARE, SELFPAY ==
[2023-10-22] VITALS (15 sets, daily range): BP systolic 126–234; BP diastolic 49–117; PULSE 70–99; RESP 18–38; TEMP 36.1–36.8; O2SAT 93–100; BMI 29.2; BMI 27.3
--- NOTE | 2023-10-22 05:59 | EKG12_ITS ---
Test Reason : SOB Blood Pressure : / mmHG Vent. Rate : 090 BPM Atrial Rate : 090 BPM P-R Int : 168 ms QRS Dur : 102 ms QT Int : 398 ms P-R-T Axes : 049 -19 043 degrees QTc Int : 486 ms Sinus rhythm with occasional Premature ventricular complexes Incomplete right bundle branch block Septal infarct , age undeteremined Abnormal ECG Confirmed by DELFINA NUNEZ, JOE ([id number]), editor at large JONA RICHARDSON ([id number]) on 10/23/2023 12:13:00 PM Referred By: Confirmed By:JOE MATHIS MD
--- NOTE | 2023-10-22 06:00 | ED.VIS.DYS ---
HPI History of Present Illness Chief Complaint: Shortness of Breath Informant: patient and EMS Narrative Narrative: 88-year-old female presenting with shortness of breath that has been going on for the last 4 nights. It is only with lying down. During the day she states she feels fine. Her legs have been swollen for the past 4 months, the left one is always worse. No history of DVT or PE. No recent long travel out of the area or hospitalization or surgery. No chest discomfort even with deep inspiration but she feels like she is having trouble taking a deep breath because it is hard to breathe. No history of heart problems that she knows of. EMS states that on multiple checks including a manual, her blood pressure is in the 230s systolic. PFSH PFS Medical History Alcohol use Ambulates with cane Anxiety Arthritis Back pain Cancer Depression FH: total knee replacement Former smoker High cholesterol History of edema History of stress test Hypertension Post-menopausal Shortness of breath on exertion Wears dentures Wears glasses Home Medications simvastatin 20 mg tablet 20 mg PO QHS cholesterol 10/22/13 [History Last Taken Unknown] timolol maleate 0.5 % eye drops 1 drp DAILY eye health 11/01/13 [History Last Taken Unknown] lisinopril 10 mg tablet 10 mg PO QHS blood pressure 04/10/19 [History Last Taken Unknown] omeprazole 20 mg capsule,delayed release 20 mg PO DAILY #30 caps 07/07/22 [Rx Last Taken Unknown] ondansetron 4 mg disintegrating tablet 4 mg PO Q8H PRN PRN Nausea #10 tabs 07/08/22 [Rx Last Taken Unknown] meloxicam 7.5 mg tablet 7.5 mg PO DAILY 08/29/23 [History Last Taken Unknown] Allergy/AdvReac Type Severity Reaction Status Date / Time morphine AdvReac Intermediate Inflammation Verified 08/29/23 13:25 of vein Surgical History H/O breast biopsy H/O removal of cyst History of abdominal surgery Hx of bilateral cataract extraction Hx of dilation and curettage Hx of external ear surgery Social History household members: spouse Smoking Status: Former smoker alcohol intake: current ROS ROS ED Constitutional Constitutional ED: Denies chills or fever(s) Eyes Eyes: Denies change in vision or diplopia ENT ENT ED: Denies rhinorrhea or sore throat Cardiovascular Cardiovascular: Reports leg edema, orthopnea and paroxysmal nocturnal dyspnea; Denies chest pain, palpitations or radiating jaw, neck or arm pain Respiratory/Chest Respiratory/Chest: Reports cough, dyspnea, orthopnea and paroxysmal nocturnal dyspnea; Denies sputum Gastrointestinal Gastrointestinal: Denies abdominal pain, diarrhea, nausea or vomiting Genitourinary Genitourinary ED: Denies dysuria or hematuria Musculoskeletal Musculoskeletal: Denies back pain or neck pain Integumentary Denies abscess or rash Neurologic Neurologic: Denies headache(s), paresthesias or weakness Psychiatric Psychiatric: Denies anxiety or suicidal thoughts EXAM Physical Exam Const Vital Signs: 10/22/23 05:54 10/22/23 06:03 10/22/23 06:11 Temperature 97.6 F L Temperature Source Temporal Pulse Rate 99 90 Respiratory Rate 26 H 29 H Respiratory Effort Respiratory Depth Respiratory Pattern Blood Pressure 234/117 H 229/100 H Blood Pressure Mean 156 143 Pulse Ox 97 93 100 Oxygen Delivery Method Nasal Cannula Nasal Cannula Nasal Cannula Oxygen Flow Rate (L/min) 2 2 2 10/22/23 06:20 10/22/23 06:40 10/22/23 07:07 Temperature 97.8 F 96.9 F L Temperature Source Temporal Temporal Pulse Rate 96 93 83 Respiratory Rate 38 H 22 H 22 H Respiratory Effort Respiratory Depth Respiratory Pattern Tachypnea Blood Pressure 166/64 H 126/78 H Blood Pressure Mean 98 94 Pulse Ox 97 98 Oxygen Delivery Method Nasal Cannula Nasal Cannula Oxygen Flow Rate (L/min) 2 2 10/22/23 07:11 Temperature Temperature Source Pulse Rate Respiratory Rate Respiratory Effort Short of Breath Labored Respiratory Depth Shallow Respiratory Pattern Tachypnea Blood Pressure Blood Pressure Mean Pulse Ox Oxygen Delivery Method Nasal Cannula Oxygen Flow Rate (L/min) 2 Positive well nourished and well developed General Appearance ED: well developed and NAD HEENT Reports moist mucous membranes normocephalic and atraumatic Eyes PERRL and EOMs intact bilaterally Neck full ROM and supple Neck Narrative: +JVD Resp Resp Narrative: Tachypneic, but in no respiratory distress. Bibasilar Rales and rhonchi. Cardio regular rate, regular rhythm and no murmurs GI non-tender and non-distended Auscultation: normoactive bowel sounds Palpation: soft Back/Spine no CVA tenderness General Back: other FROM Extremity normal to inspection General Extremety ED: Yes edema; Negative for pulses abnormal or tenderness General Extremity: edema right lower extremity trace and left lower extremity moderate (pitting); Negative for pulses abnormal Neuro oriented x3, CN's II-XII intact bilaterally and no sensory deficits noted Sensorium / Orientation: awake and alert Motor Exam: strength 5/5 throughout Psych mental status grossly normal Skin no rashes or lesions noted and no wounds MDM MDM MDM Narrative Medical decision making narrative: Given the patient's symptoms, severely elevated blood pressure, and clinical findings, I am highly suspicious that the patient is in acute congestive heart failure. Therefore she was given IV hydralazine, Lasix, and a duo nebulizer treatment while workup being obtained. EKG shows no acute injury pattern. There is artifact in some of the precordial leads, making it difficult to assess for LV strain although she does not have any significant signs of it in the limb leads. 1 view chest x-ray on my interpretation is consistent with pulmonary edema. Her troponin is within normal limits, her creatinine is normal with an elevated BUN similar to prior measurements, BNP is elevated. On reevaluation after the above treatments, her blood pressure is down to 166/64. She is breathing better. History & Record Review Additional record(s) reviewed:: Prior outpatient record (No prior echocardiogram or visits with cardiology) Lab Data Attestation: I reviewed the patient's lab results. Labs: Laboratory Results - last 24 hr 10/22/23 06:05 WBC 6.5 RBC 4.84 Hgb 13.1 Hct 41.6 MCV 86.0 MCH 27.1 MCHC 31.5 L RDW Std Deviation 42.2 RDW Coeff of [place] 13.6 Plt Count 278 MPV 10.3 Immature Gran % (Auto) 0.300 Neut % (Auto) 49.2 Lymph % (Auto) 38.8 Stearns % (Auto) 7.4 Eos % (Auto) 3.4 Baso % (Auto) 0.9 Absolute Neuts (auto) 3.2 Absolute Lymphs (auto) 2.52 Nucleated RBC % 0 Sodium 143 Potassium 3.5 Chloride 110 H Carbon Dioxide 27.0 Anion Gap 6 BUN 24 H Creatinine 0.77 Estim Creat Clear Calc 38.54 Est GFR (MDRD) Af Amer 91 Est GFR (MDRD) Non-Af 75 BUN/Creatinine Ratio 31.0 H Glucose 128 H Calcium 9.3 Troponin I High Sens 29 B-Natriuretic Peptide 536.5 H Radiography Diagnostic Testing: Clinical Impression(s) from Imaging Studies Chest X-Ray 10/22/23 06:30 IMPRESSION: Bilateral interstitial infiltrates and small left pleural effusion may be consistent with edema or pneumonia. Electronically Signed: Briana Clarke MD at 6:45 EST , Rhythm Strip Rhythm Strip: Sinus Rhythm Rate: 90 Ectopy: PVC(s) EKG Initial EKG: Attestation: I personally reviewed and interpreted this EKG as follows: Interpretation: Sinus Rhythm, No Acute Injury Pattern and LAFB Comments: RSR' Prior EKG tracings: available for review Prior: Unchanged Management Discussion w/another healthcare provider: Hospitalist Discharge Plan Triage Chief Complaint: Shortness of Breath ED Provider: Adi Holley Dx/Rx/DC Orders Clinical Impression: Hypertensive urgency, Acute systolic CHF (congestive heart failure) Prescriptions: No Action meloxicam 7.5 mg tablet 7.5 mg PO DAILY simvastatin 20 MG tablet 20 mg PO QHS Patient Comments: CHOLESTEROL LOWERING timolol maleate 1 DROP drops 1 drp Each Eye DAILY Patient Comments: GLAUCOMA lisinopril 10 MG tablet 10 mg PO QHS ondansetron [ondansetron] 4 mg tablet,disintegrating 4 mg PO Q8H PRN PRN (Reason: Nausea) Qty: 10 0RF omeprazole 20 mg capsule,delayed release(DR/EC) 20 mg PO DAILY Qty: 30 2RF Primary Care Provider: Harley Harding Referrals: Harley Harding MD [Primary Care Provider] - Disposition Disposition: Acute Care Hospital [facility]
[2023-10-22] MEDS: hydrALAZINE 20 MG/ML Vial IV (06:06)
[2023-10-22] MEDS: Furosemide 40 MG/4 ML Vial IV ×2 (06:06→14:17)
[2023-10-22 06:11] LABS: Absolute Lymphocyte Count 2.52 X10^3/uL (0.83-4.51); Absolute Neutrophil Count 3.2 X10^3/uL (2.0-7.7); Basophil# 0.06 X10^3/uL; Basophil% 0.9 % (0-1); Eosinophil# 0.22 X10^3/uL; Eosinophils% 3.4 % (0-5); Hematocrit 41.6 % (37-47); Hemoglobin 13.1 g/dL (12.0-15.0); Lymphocyte # 2.52 X10^3/ul (0.83-4.51); Lymphocyte % 38.8 % (19-41); Mean Corp Hgb Conc 31.5 g/dL (32-36); Mean Corpuscular Hgb 27.1 pg (27.0-32.0); Mean Platelet Vol. 10.3 fl (6.2-12.0); Monocyte# 0.48 X10^3/uL; Monocyte% 7.4 % (0-10); NRBC Flagged by Analyzer 0 % (0-5); Neutrophil # 3.19 X10^3/uL (2.7-7.7); Neutrophil % 49.2 % (47-70); Platelet Count 278 K/mm3 (150-450); RBC Distribution Width CV 13.6 % (11.6-14.6); RBC Distribution Width SD 42.2 fl (35.1-43.9); Red Blood Count 4.84 M/mm3 (4.2-5.4); White Blood Count 6.5 K/mm3 (4.4-11.0)
[2023-10-22] MEDS: Ipratropium/Albuterol Sulfate 3 ML AMPUL.NEB INHALATION (06:20)
[2023-10-22 06:29] LABS: Anion Gap 6 (5-15); BUN 24 mg/dL (7-18); Calcium,Total 9.3 mg/dL (8.5-10.1); Chloride 110 mmol/L (98-107); Creatinine, Serum 0.77 mg/dL (0.55-1.02); EST Glomerular Filtration Rate 75 mL/min (>60); Est Glom Filt Rate - Afr Amer 91 mL/min (>60); Estimated Creatinine Clearance 38.54 ml/min; Glucose 128 mg/dL (74-106); Potassium 3.5 mmol/L (3.5-5.1); Sodium Level 143 mmol/L (136-145); Troponin-I HS 29 pg/mL (3.0-54.0)
--- NOTE | 2023-10-22 06:30 | RAD_ITS ---
INDICATION: sob EXAMINATION/TECHNIQUE: X-RAY - XR Chest 1 View AP portable. 6:27 AM COMPARISON: 04/05/2023 FINDINGS: LINES/DEVICES: None. LUNGS: Mild interstitial infiltrates greater at the lung bases. Small left pleural effusion. No consolidation. No pneumothorax. MEDIASTINUM: Aorta is atherosclerotic. CARDIAC SILHOUETTE: Not enlarged. BONES AND SOFT TISSUES: Degenerative changes dorsal spine. RAD/Chest 1 View (Portable) IMPRESSION: Bilateral interstitial infiltrates and small left pleural effusion may be consistent with edema or pneumonia. Electronically Signed: Briana Clarke MD at 6:45 EST ,
[2023-10-22 07:37] LABS: BNP,B-Type NATRIURETIC PEPTIDE 536.5 pg/mL (0-100)
--- NOTE | 2023-10-22 07:46 | NURSING ---
DR SIDDIQI FOR DR OLGUIN
--- NOTE | 2023-10-22 07:46 | PCM.HP.STD ---
[facility] - General General Date of Admission: 10/22/23 Date of Service: 10/22/23 Chief Complaint: Shortness of breath, Progressive worsening for about 4 days. HPI Narrative ZACKARY HAMILTON, is a 88 F who Came to ED for progressive worsening of shortness of breath for about 14 days started around last Monday or . She felt she is legates short of breath on walking. She also felt more short of breath on laying down, orthopnea. She states she has to wake up in the night to Urinate as she has chronic urinary incontinence. She denies feeling of suffocation or PND. She felt mild chest congestion/tightness all around but denies chest pain pressure. She also had worsening of cough for about 4 days and wheezing but it was dry. No fever, sinus congestion or postnasal drip. She is vaccinated against COVID-19. She said she started having leg swelling about 3 to 4 months ago and her PCP put on Lasix without her diagnosis of heart failure. She denies weight gain but states she actually felt weight loss. Her blood pressure was very high when she came to the ED, 230/117 but after Hydralazine 20 mg IV and Lasix it came down to 126/78 and then 163/79. She is having good urination in ED. Vitals, labs, chest x-ray and EKG reviewed and discussed in assessment plan. [facility] Medical History Alcohol use Ambulates with cane Anxiety Arthritis Back pain Cancer Depression FH: total knee replacement Former smoker High cholesterol History of edema History of stress test Hypertension Post-menopausal Shortness of breath on exertion Wears dentures Wears glasses Home Medications simvastatin 20 mg tablet 20 mg PO QHS cholesterol 10/22/13 [History Last Taken Unknown] timolol maleate 0.5 % eye drops 1 drp DAILY eye health 11/01/13 [History Last Taken Unknown] lisinopril 10 mg tablet 10 mg PO QHS blood pressure 04/10/19 [History Last Taken Unknown] omeprazole 20 mg capsule,delayed release 20 mg PO DAILY #30 caps 07/07/22 [Rx Last Taken Unknown] ondansetron 4 mg disintegrating tablet 4 mg PO Q8H PRN PRN Nausea #10 tabs 07/08/22 [Rx Last Taken Unknown] meloxicam 7.5 mg tablet 7.5 mg PO DAILY 08/29/23 [History Last Taken Unknown] Allergy/AdvReac Type Severity Reaction Status Date / Time morphine AdvReac Intermediate Inflammation Verified 08/29/23 13:25 of vein Surgical History H/O breast biopsy H/O removal of cyst History of abdominal surgery Hx of bilateral cataract extraction Hx of dilation and curettage Hx of external ear surgery Social History household members: spouse Smoking Status: Former smoker alcohol intake: current ROS ROS Narrative Constitutional: Reports fatigue and weakness. No fever. HEENT: Reports systems reviewed and no addt'l complaints, except as documented Respiratory/Chest: As described in HPI. No chronic lung disease.No history of smoking. CVS: As described in HPI. Gastrointestinal: Denies coffee ground emesis, hematemesis or vomiting Genitourinary: Chronic urinary incontinence. States she has burning micturition for 1 day. Musculoskeletal: States he had a gouty attack in both big toes but much better improved. Mild pain in foot. Chronic degenerative arthritis. Denies acute joint pain or limited range of motion. Neurologic: Denies seizure-like symptoms. No acute or strokelike symptoms. skin: No ulcer. No rash Endocrinology: Reports systems reviewed and no addt'l complaints, except as documented Hematologic/Lymphatic: Reports systems reviewed and no addt'l complaints, except as documented Rest 14 ROS are negative except as mentioned in HPI Vital Signs Vital Signs Vital Signs: 10/22/23 05:54 10/22/23 06:03 10/22/23 06:11 Temperature 97.6 F L Temperature Source Temporal Pulse Rate 99 90 Respiratory Rate 26 H 29 H Respiratory Effort Respiratory Depth Respiratory Pattern Blood Pressure 234/117 H 229/100 H Blood Pressure Mean 156 143 Pulse Ox 97 93 100 Oxygen Delivery Method Nasal Cannula Nasal Cannula Nasal Cannula Oxygen Flow Rate (L/min) 2 2 2 10/22/23 06:20 10/22/23 06:40 10/22/23 07:07 Temperature 97.8 F 96.9 F L Temperature Source Temporal Temporal Pulse Rate 96 93 83 Respiratory Rate 38 H 22 H 22 H Respiratory Effort Respiratory Depth Respiratory Pattern Tachypnea Blood Pressure 166/64 H 126/78 H Blood Pressure Mean 98 94 Pulse Ox 97 98 Oxygen Delivery Method Nasal Cannula Nasal Cannula Oxygen Flow Rate (L/min) 2 2 10/22/23 07:11 Temperature Temperature Source Pulse Rate Respiratory Rate Respiratory Effort Short of Breath Labored Respiratory Depth Shallow Respiratory Pattern Tachypnea Blood Pressure Blood Pressure Mean Pulse Ox Oxygen Delivery Method Nasal Cannula Oxygen Flow Rate (L/min) 2 Weight Weight: 186 lb 11.704 oz Body Mass Index (BMI) 29.2 Physical Exam Narrative General: Alert, Oriented x3, Cooperative HEENT:Mild bilateral hearing impairment. Atraumatic, PERRLA, EOMI, Normocephalic Oral: Oral mucosa dry. No Gingival or Mucosal Lesions/ Ulcerations Neck: Supple, No JVD, Negative Carotid Bruits Lungs: Air entry diminished in bilateral lung bases. No crepitation/rhonchi Cardiovascular: Regular rate, Regular Rhythm, Normal S1, Normal S2, Systolic murmur over right second ICS and LLSB. Abdomen: Bowel Sounds Present, Soft, Non Tender, Non-Distended : No renal angle tenderness. No suprapubic tenderness. Extremities: Bilateral lower extremity pitting edema, left more than right. Left leg is more swollen after she had injury about 2 years ago edema, Capillary Refill Less than 3 Seconds Skin: No rashes, No breakdown Musculoskeletal: No Tenderness to Palpation of Joints or Extremities. Left great toe tender and ROM restricted over right great toe Neurological: Cranial nerves II-XII grossly intact, DTR 2+/4. No acute focal neurological deficit. Psych/Mental Status: Normal Affect, Appropriate. Results Lab / Micro Data 10/22/23 06:05 10/22/23 06:05 Labs: Laboratory Results - last 24 hr 10/22/23 06:05: WBC 6.5, RBC 4.84, Hgb 13.1, Hct 41.6, MCV 86.0, MCH 27.1, MCHC 31.5 L, RDW Std Deviation 42.2, RDW Coeff of Destin 13.6, Plt Count 278, MPV 10.3, Immature Gran % (Auto) 0.300, Neut % (Auto) 49.2, Lymph % (Auto) 38.8, Dickson % (Auto) 7.4, Eos % (Auto) 3.4, Baso % (Auto) 0.9, Absolute Neuts (auto) 3.2, Absolute Lymphs (auto) 2.52, Nucleated RBC % 0, Sodium 143, Potassium 3.5, Chloride 110 H, Carbon Dioxide 27.0, Anion Gap 6, BUN 24 H, Creatinine 0.77, Estim Creat Clear Calc 38.54, Est GFR (MDRD) Af Amer 91, Est GFR (MDRD) Non-Af 75, BUN/Creatinine Ratio 31.0 H, Glucose 128 H, Calcium 9.3, Troponin I High Sens 29, B-Natriuretic Peptide 536.5 H Rhythm Strip Rhythm Strip: Sinus Rhythm Rate: 90 Ectopy: PVC(s) Imagaing Radiology Impression Chest X-Ray 10/22/23 06:30 IMPRESSION: Bilateral interstitial infiltrates and small left pleural effusion may be consistent with edema or pneumonia. Electronically Signed: Briana Clarke MD at 6:45 EST Reading Location ID and State: [address] [place] [address] Tel , Service support , Assessment & Plan Assessment/Plan (1) Acute systolic CHF (congestive heart failure): (2) Hypertensive urgency: PLAN: Plan This is a 88-year-old female being admitted for progressive shortness of breath for about 4 days along with leg swelling elevated BNP consistent with new onset heart failure. 1. Acute Heart failure, type, classification and severity unclear: Patient is being admitted in PCU on estimator printing. Twelve-lead EKG individually reviewed and shows normal sinus rhythm With occasional PVCs at 90 bpm. Incomplete RBBB, QTc 486 ms. Previous EKG on 09/23/2022 shows anasarca with sinus arrhythmia, LAD LVH and old septal infarct. BNP elevated. Chest x-ray Individually reviewed and shows bilateral interstitial edema and infiltrates. Small left pleural effusion. Patient started on Lasix 40 mg IV twice daily And spironolactone 25 mg daily. K3.5. .Heart failure core measures including intake and output, fluid restriction less than 1500 mL, daily weight monitoring, kidney and electrolytes monitoring. First 2 high-sensitivity troponin negative. ACS ruled out. 2D echo ordered for tomorrow AM. 2. Hypertensive urgency, With history of hypertension emergency during previous admission in April 2022.We will increase the dose of lisinopril.Monitor kidney function and electrolytes.Started on metoprolol succinate 12.5 mg daily and will titrate up.Hydralazine 10 mg IV every 6 hourly as needed for SBP more than 180 mmHg. 3. 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 No abdominal pain. Partial profile tomorrow AM. Atorvastatin 20 mg daily at bedtime. PT and OT ordered. 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 After discussion of benefits/risks procedures involved with full code, DNR CC arrest and DNR CC, the patient opted for DNRCC arrest with no intubation. Patient doesn't want artificial life support including intubation, tube feed, ventilator and/chest compression, central venous catheter, vasopressor and DC shock if needed Total time spent in [id number] encounter in discussion of advanced directive 17 minutes. Laboratory Results 10/22/23 06:05: WBC 6.5, RBC 4.84, Hgb 13.1, Hct 41.6, MCV 86.0, MCH 27.1, MCHC 31.5 L, RDW Std Deviation 42.2, RDW Coeff of Destin 13.6, Plt Count 278, MPV 10.3, Immature Gran % (Auto) 0.300, Neut % (Auto) 49.2, Lymph % (Auto) 38.8, Dickson % (Auto) 7.4, Eos % (Auto) 3.4, Baso % (Auto) 0.9, Absolute Neuts (auto) 3.2, Absolute Lymphs (auto) 2.52, Nucleated RBC % 0, Sodium 143, Potassium 3.5, Chloride 110 H, Carbon Dioxide 27.0, Anion Gap 6, BUN 24 H, Creatinine 0.77, Estim Creat Clear Calc 38.54, Est GFR (MDRD) Af Amer 91, Est GFR (MDRD) Non-Af 75, BUN/Creatinine Ratio 31.0 H, Glucose 128 H, Calcium 9.3, Phosphorus 3.4, Magnesium 1.7, Total Bilirubin 0.70, Direct Bilirubin 0.21, AST 31, ALT 26, Alkaline Phosphatase 86, Troponin I High Sens 29 10/22/23 06:05: Troponin I High Sens 28, B-Natriuretic Peptide 536.5 H, Total Protein 7.0, Albumin 3.8, Globulin 3.2 Charges/Coding Visit Charges Inpatient E&M: 47263 Disch Hosp >30min
--- NOTE | 2023-10-22 07:55 | NURSING ---
PCU NEERU ACUTE CHF
[2023-10-22 08:22] LABS: AST(SGOT) 31 U/L (15-37); Alanine Aminotransfer ALT/SGPT 26 U/L (13-56); Albumin, Serum 3.8 g/dL (3.2-5.0); Alkaline Phosphatase 86 U/L (45-117); Bilirubin, Direct 0.21 mg/dL (0.00-0.30); Globulin 3.2 g/dL (2.2-4.2); Magnesium 1.7 mg/dL (1.6-2.6); Phosphorus 3.4 mg/dL (2.5-4.9); Troponin-I HS 28 pg/mL (3.0-54.0)
[2023-10-22] MEDS: Magnesium Chloride 64 MG Delay Rel.Tablet 128 MG PO ×2 (11:04→21:01)
[2023-10-22] MEDS: Spironolactone 25 MG Tablet PO (11:04)
[2023-10-22] MEDS: Lisinopril 10 MG Tablet PO ×2 (11:04→21:01)
[2023-10-22] MEDS: Metoprolol(XL)Succ 25 MG Tablet 12.5 MG PO (11:05)
[2023-10-22] MEDS: Enoxaparin 40 MG/0.4 ML Syringe SC (11:05)
[2023-10-22] MEDS: Pantoprazole Sodium 20 MG Tablet PO (11:05)
[2023-10-22] MEDS: Timolol 0.5% 5ML OPTH.BTL 1 DRP EACH EYE (11:06)
[2023-10-22] MEDS: Acetaminophen 325 MG Tablet 650 MG PO ×2 (11:30→23:25)
[2023-10-22] MEDS: 0.9% Saline Lock 10 ML Syringe IV (14:17)
[2023-10-22] MEDS: Atorvastatin Calcium 20 MG Tablet PO (21:01)
[2023-10-23 03:05] VITALS: BP 166/64; PULSE 78; RESP 16; TEMP 37.2; O2SAT 98
[2023-10-23 04:59] LABS: Absolute Lymphocyte Count 1.83 X10^3/uL (0.83-4.51); Absolute Neutrophil Count 3.3 X10^3/uL (2.0-7.7); Basophil# 0.03 X10^3/uL; Basophil% 0.5 % (0-1); Eosinophil# 0.15 X10^3/uL; Eosinophils% 2.5 % (0-5); Hematocrit 35.7 % (37-47); Hemoglobin 11.6 g/dL (12.0-15.0); Lymphocyte # 1.83 X10^3/ul (0.83-4.51); Lymphocyte % 30.7 % (19-41); Mean Corp Hgb Conc 32.5 g/dL (32-36); Mean Corpuscular Hgb 27.4 pg (27.0-32.0); Mean Corpuscular Volume 84.2 fL (81-99); Mean Platelet Vol. 10.4 fl (6.2-12.0); Monocyte% 10.1 % (0-10); NRBC Flagged by Analyzer 0 % (0-5); Neutrophil # 3.34 X10^3/uL (2.7-7.7); Platelet Count 270 K/mm3 (150-450); RBC Distribution Width CV 13.8 % (11.6-14.6); RBC Distribution Width SD 42.5 fl (35.1-43.9); Red Blood Count 4.24 M/mm3 (4.2-5.4)
[2023-10-23 05:42] LABS: Anion Gap 8 (5-15); BUN 27 mg/dL (7-18); BUN/Creat Ratio 31.9 RATIO (10-20); Chloride 107 mmol/L (98-107); Cholesterol 134 mg/dL (200); Creatinine, Serum 0.85 mg/dL (0.55-1.02); EST Glomerular Filtration Rate 68 mL/min (>60); Est Glom Filt Rate - Afr Amer 82 mL/min (>60); Estimated Creatinine Clearance 45.34 ml/min; Glucose 103 mg/dL (74-106); High Density Lipoprotein 60 mg/dL; Potassium 3.1 mmol/L (3.5-5.1); Sodium Level 141 mmol/L (136-145); Thyroid Stim Hormone (TSH) 0.72 uIU/mL (0.358-3.74); Triglycerides 77 mg/dL; Very Low Density Lipoprotein 15 mg/dL (5-40)
--- NOTE | 2023-10-23 05:55 | ECHOD_ITS ---
Reason For Study: HEART FAILURE Procedure This was a 2D Doppler, Color Flow transthoracic echocardiogram. Exam performed portable in patient room. Left Ventricle Normal LV size. Apical false tendon noted. Left ventricular systolic function is normal. The estimated ejection fraction is 65 %. Stage 1 diastolic dysfunction. No regional wall motion abnormalities noted. Right Ventricle Normal RV size. Normal systolic function. Atria Normal left atrium. Normal right atrium. Mitral Valve Normal mitral valve. Tricuspid Valve Normal tricuspid valve. Mild tricuspid valve insufficiency. Pulmonary artery systolic pressure is 32 mmHg. Aortic Valve Trisinus/trileaflet aortic valve. Mild (1+) aortic valve insufficiency. Pulmonic Valve Normal pulmonic valve. Great Vessels Normal aortic root. The pulmonary artery is normal size. Normal inferior vena cava. Pericardium/Pleural No pericardial effusion. MMode/2D Measurements & Calculations LVIDd: 4.8 cm IVSd: 1.2 cm LAV(MOD-bp): 74.4 ml LVIDs: 3.6 cm LVPWd: 1.1 cm LAV(MOD-bp) Indexed: 39.0 ml/m2 RVDd: 3.3 cm FS: 25.5 % LAV(MOD-sp2): 68.3 ml LAV(MOD-sp4): 68.1 ml EDV(MOD-sp4): 73.7 ml EDV(MOD-sp2): 97.7 ml SV(MOD-sp4): 42.7 ml ESV(MOD-sp4): 31.1 ml ESV(MOD-sp2): 31.9 ml EF(MOD-sp4): 57.9 % EF(MOD-sp2): 67.4 % SV(MOD-sp2): 65.8 ml LA dimension(2D): 3.7 cm LA A4 area: 22.1 cm2 TAPSE: 1.9 cm RA A4 area: 11.1 cm2 Time Measurements MV dec time: 0.30 sec Doppler Measurements & Calculations MV E max luisito: 49.9 cm/sec Lat Peak E' Luisito: 6.6 cm/sec Med Peak E' Luisito: 5.3 cm/sec MV A max luisito: 72.6 cm/sec E/E' lat: 7.5 E/E' med: 9.4 MV E/A: 0.69 MV V2 max: 101.0 cm/sec MV P1/2t max luisito: 62.0 cm/sec Ao V2 max: 165.4 cm/sec MV max P.1 mmHg MV P1/2t: 98.5 msec Ao max P.9 mmHg MV V2 mean: 46.5 cm/sec MV dec slope: 184.3 cm/sec2 Ao V2 mean: 101.8 cm/sec MV mean P.0 mmHg Ao mean P.9 mmHg MV V2 VTI: 23.2 cm MVA(P1/2t): 2.2 cm2 Ao V2 VTI: 35.3 cm AV (velocity ratio): 0.76 AI max luisito: 386.8 cm/sec LV V1 max: 124.8 cm/sec PA V2 max: 87.7 cm/sec AI max P.9 mmHg LV V1 max P.2 mmHg PA V2 mean: 53.9 cm/sec AI dec slope: 253.1 cm/sec2 LV V1 mean P.4 mmHg AI P1/2t: 447.7 msec LV V1 mean: 88.9 cm/sec LV V1 VTI: 26.8 cm TR max luisito: 269.6 cm/sec TR max P.1 mmHg ECHO/Echo Complete Interpretation Summary Normal LV size. Left ventricular systolic function is normal. The estimated ejection fraction is 65 %. Stage 1 diastolic dysfunction. Mild (1+) aortic valve insufficiency. Pulmonary artery systolic pressure is 32 mmHg. Ordering Physician: Amanuel Sidhu Referring Physician: Edis Harding Performed By: Callie Barnett, NEVA, RVT
[2023-10-23 06:00] VITALS: BMI 30.6
[2023-10-23] MEDS: Potassium Chloride Oral Tablet 20 MEQ 40 MEQ PO (06:42)
[2023-10-23 09:30] VITALS: BP 127/45; PULSE 68; RESP 16; TEMP 36.6; O2SAT 98
[2023-10-23] MEDS: Lisinopril 10 MG Tablet PO ×2 (09:36→22:58)
[2023-10-23] MEDS: Spironolactone 25 MG Tablet PO (09:36)
[2023-10-23 09:37] VITALS: PULSE 68
[2023-10-23] MEDS: Metoprolol(XL)Succ 25 MG Tablet 12.5 MG PO (09:37)
[2023-10-23] MEDS: Magnesium Chloride 64 MG Delay Rel.Tablet 128 MG PO ×2 (09:37→19:51)
[2023-10-23] MEDS: 0.9% Saline Lock 10 ML Syringe IV (09:37)
[2023-10-23] MEDS: Pantoprazole Sodium 20 MG Tablet PO (09:37)
[2023-10-23] MEDS: Enoxaparin 40 MG/0.4 ML Syringe SC (09:37)
[2023-10-23] MEDS: Timolol 0.5% 5ML OPTH.BTL 1 DRP EACH EYE (09:39)
[2023-10-23] MEDS: Furosemide 40 MG/4 ML Vial IV (09:39)
--- NOTE | 2023-10-23 10:45 | CASEMGMT ---
RN CM Face to Face with patient for initial transition planning/care coordination assessment. RN CM introduced self and role at [facility]. Patient lying in bed, alert and oriented. Patient willing to participate in assessment and is able to answer all questions appropriately. Care providers, pharmacy, and demographics verified. Patient wishes to discharge home, denies need for home health at this time. Patient states she has no further needs or concerns at this time. CM to follow for discharge planning needs that may arise. PCP: Mehdi Specialists: none Preferred Pharmacy: [facility] Insurance: [employer] Prescription Benefit: yes Living Will/HPOA: yes, Jorge Schultz LNOK: , son Living Arrangements: Patient lives with in a 2 story home with bed and bath on first floor, 4 steps and railing to enter the home. Patient states she is independent at home. Transportation: self, DME/HHC: Patient has raised toilet, cane, walker at home. No previous HHC or SNF. Disposition Plan: Patient to discharge home with family support and follow-up plans in place. Zita THAKUR, RN, CM
--- NOTE | 2023-10-23 14:31 | PN_ITS ---
Subjective Subjective Patient seen and examined. She had no complaints and felt well. She denied any fever, chills, cough, chest pain, palpitations, dizziness, nausea, vomiting or any other symptoms. Review of systems is otherwise negative. She is on room air. Objective Data Objective Data Vital Signs: Vital Signs Temp Pulse Resp BP Pulse Ox O2 Del Method O2 Flow Rate 97.8 F 68 16 127/45 H 98 Room Air 2 10/23/23 09:30 10/23/23 09:37 10/23/23 09:30 10/23/23 09:30 10/23/23 09:30 10/23/23 10:00 10/23/23 02:55 Oxygen Flow Rate (L/min) 2 Oxygen Delivery Method Room Air Weight: 195 lb 5.273 oz Body Mass Index (BMI) 30.6 Intake & Output: Intake and Output for Last 24 Hours 10/21/23 10/22/23 10/23/23 23:59 23:59 23:59 Intake Total 360 / 600 240 / 240 Output Total 2350 / 3150 1650 / 1650 Balance -1989 / 2550 -1410 / -1410 Lab / Micro Data 10/23/23 04:44 10/23/23 04:44 Labs: Laboratory Results - last 24 hr 10/23/23 04:44: WBC 6.0, RBC 4.24, Hgb 11.6 L, Hct 35.7 L, MCV 84.2, MCH 27.4, MCHC 32.5, RDW Std Deviation 42.5, RDW Coeff of Destin 13.8, Plt Count 270, MPV 10.4, Immature Gran % (Auto) 0.200, Neut % (Auto) 56.0, Lymph % (Auto) 30.7, [place] % (Auto) 10.1 H, Eos % (Auto) 2.5, Baso % (Auto) 0.5, Absolute Neuts (auto) 3.3, Absolute Lymphs (auto) 1.83, Nucleated RBC % 0, Sodium 141, Potassium 3.1 L , Chloride 107, Carbon Dioxide 26.0, Anion Gap 8, BUN 27 H, Creatinine 0.85, Estim Creat Clear Calc 45.34, Est GFR (MDRD) Af Amer 82, Est GFR (MDRD) Non-Af 68, BUN/Creatinine Ratio 31.9 H, Glucose 103, Calcium 9.0, Triglycerides 77, Cholesterol 134, LDL Cholesterol 59, VLDL Cholesterol 15, HDL Cholesterol 60, TSH 0.72 Rhythm Strip Rhythm Strip: Sinus Rhythm Rate: 90 Ectopy: PVC(s) Physical Exam Const alert, oriented x3, no apparent distress and well nourished General Appearance: cooperative and well developed HEENT normocephalic, head/scalp atraumatic, moist oral mucous membranes and oropharynx normal Eyes PERRL and EOMs intact bilaterally Neck no lymphadenopathy and supple Lymph Lymphatic: no lymphadenopathy noted and no lymphedema noted Resp normal respiratory effort, normal air movement and clear to auscultation bilaterally Cardio regular rate, regular rhythm, S1 normal heart sound, S2 normal heart sound and n o murmurs GI normal to inspection, nondistended, normoactive bowel sounds, soft to palpation, non-tender and non-distended Extremity normal capillary refill, no clubbing, cyanosis or edema and no calf tenderness General Extremity: no tenderness to palpation of joints or extremities Skin General Skin Exam: no breakdown Neuro CN's II-XII intact bilaterally, no focal motor deficits, no sensory deficits noted and deep tendon reflexes 2+ bilaterally Motor Exam: strength 5/5 throughout and general weakness Psych thought process normal and cooperative Appearance: appropriate Assessment & Plan Assessment/Plan (1) Acute systolic CHF (congestive heart failure): (2) Hypertensive urgency: PLAN: Plan #Acute heart failure * EF unknown * now feels much better. On room air. EKG showed no acute St changes * CXR showed bilateral interstitial edema and infiltrates. * on IV lasix 40mg bid and spironolactone * 2D echo ordered and pending. * #Hypertensive urgency: resolved. on lisinopril and metoprolol. Also on spironolactone. IV hydralazine prn. 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 PT/OT on board. #Hyperlipidemia:on statin DVT prophylaxis: lovenox Charges/Coding Visit Charges Inpatient E&M: 91564 Subs Hosp L2
--- NOTE | 2023-10-23 15:04 | CASEMGMT ---
NOA notified patient that her Healthcare Power of Ornamental Iron Worker and Healthcare Living Will are not on file at [facility]. Patient said she will try and find her copy at home. She thought she turned them in to [facility] at one point. NOA thanked her. Bria ALMENDAREZ
[2023-10-23 15:18] VITALS: BP 112/90; PULSE 66; RESP 17; TEMP 36.6; O2SAT 96
--- NOTE | 2023-10-23 15:42 | CHAPLAIN ---
Type of Pastoral Visit _x__ Initial Visit ___ Follow-up Visit ___ On-call Visit ___ General Patient Visit ___ Spiritual Assessment ___ Family Conference ___ Bereavement ___ Rapid Response ___ Code Blue ___ Other (describe below) Pastoral Care Referral From _x__ Patient ___ Family ___ Nurse ___ Physician ___ Hl7 Interface Developer ___ Instructor Knitting ___ Other (describe below) Sacrament/Intervention _x__ Active listening ___ Anointing ___ Roman Catholic ___ Bereavement ___ Communion _x__ Maryuri exploration ___ _x__ Life review _x__ Prayer ___ Reconciliation ___ Sacrament of Sick _x__ Supportive presence ___ Wedding ___ Other (describe below) Pastoral Comments patient remembers this manager hair from a previous visit and conversation; pt is a member of a local rastafari and gives her thoughts on their maryuri community; pt is talkative and gives thoughts on various topics of health and the world; pt declares that she is usually in good health; pt welcomes presence for support and asks for a prayer as well;
[2023-10-23] MEDS: Atorvastatin Calcium 20 MG Tablet PO (19:53)
--- NOTE | 2023-10-23 19:57 | NURSING ---
pt requesting medication early to rest
[2023-10-23 21:00] VITALS: BP 118/85; PULSE 81; RESP 18; TEMP 36.6; O2SAT 97
[2023-10-23 21:20] VITALS: BP 118/85; PULSE 75; RESP 17; TEMP 36.6; O2SAT 97
[2023-10-24 03:00] VITALS: BP 122/86; PULSE 80; RESP 18; TEMP 36.7; O2SAT 97
[2023-10-24 03:20] VITALS: BP 122/86; PULSE 80; RESP 17; TEMP 36.7; O2SAT 98
[2023-10-24 06:00] VITALS: BMI 30.4
[2023-10-24 06:13] LABS: Absolute Neutrophil Count 2.2 X10^3/uL (2.0-7.7); Basophil# 0.04 X10^3/uL; Basophil% 0.8 % (0-1); Eosinophil# 0.19 X10^3/uL; Hematocrit 38.6 % (37-47); Hemoglobin 12.3 g/dL (12.0-15.0); Lymphocyte % 37.7 % (19-41); Mean Corp Hgb Conc 31.9 g/dL (32-36); Mean Corpuscular Volume 84.8 fL (81-99); Mean Platelet Vol. 10.5 fl (6.2-12.0); Monocyte# 0.49 X10^3/uL; Monocyte% 10.3 % (0-10); NRBC Flagged by Analyzer 0 % (0-5); Neutrophil # 2.24 X10^3/uL (2.7-7.7); Platelet Count 281 K/mm3 (150-450); RBC Distribution Width CV 13.7 % (11.6-14.6); RBC Distribution Width SD 42.9 fl (35.1-43.9); Red Blood Count 4.55 M/mm3 (4.2-5.4); White Blood Count 4.8 K/mm3 (4.4-11.0)
[2023-10-24 06:50] LABS: Anion Gap 7 (5-15); BUN 24 mg/dL (7-18); BUN/Creat Ratio 31.2 RATIO (10-20); Calcium,Total 9.5 mg/dL (8.5-10.1); Chloride 107 mmol/L (98-107); Creatinine, Serum 0.77 mg/dL (0.55-1.02); EST Glomerular Filtration Rate 75 mL/min (>60); Est Glom Filt Rate - Afr Amer 91 mL/min (>60); Estimated Creatinine Clearance 38.54 ml/min; Glucose 95 mg/dL (74-106); Potassium 3.7 mmol/L (3.5-5.1); Sodium Level 141 mmol/L (136-145)
[2023-10-24 09:56] VITALS: BP 161/45; PULSE 70; RESP 16; TEMP 36.8; O2SAT 97
[2023-10-24 10:01] VITALS: PULSE 70
[2023-10-24] MEDS: Metoprolol(XL)Succ 25 MG Tablet 12.5 MG PO (10:01)
[2023-10-24] MEDS: Spironolactone 25 MG Tablet PO (10:01)
[2023-10-24] MEDS: Magnesium Chloride 64 MG Delay Rel.Tablet 128 MG PO (10:01)
[2023-10-24] MEDS: Lisinopril 10 MG Tablet PO (10:01)
[2023-10-24] MEDS: Pantoprazole Sodium 20 MG Tablet PO (10:01)
[2023-10-24] MEDS: Furosemide 40 MG/4 ML Vial IV (10:02)
[2023-10-24] MEDS: 0.9% Saline Lock 10 ML Syringe IV (10:02)
--- NOTE | 2023-10-24 10:02 | DCINST_ITS ---
Discharge Instructions Diet Discharge Diet: Low fat / Low cholesterol Activity Discharge Activity: Return to Normal Activity Weight Bearing Status: Weight bearing as tolerated Dressing / Incision Call your doctor if you observe: Fever of 101 or Higher, Shortness of breath, Dizziness, Swelling in the ankles, Chest pain and Increased palpitations (irregular heartbeat) Follow Up Care Test Results: Test results from this visit will be discussed in further detail at your follow- up appointment, if applicable. Discharge Plan Admission Admit Date/Time: 10/22/23 07:47 Primary Reason for Your Visit: acute HfpEF Attending Provider: Kristi Salazar Primary Care Provider: Harley Harding Consulting Providers: Amanuel Sidhu Instructions Patient Instructions: ED Heart Failure, Congestive (CHF) Discharge Orders/Prescriptions Prescriptions: New furosemide 40 mg tablet 40 mg PO DAILY Qty: 30 2RF potassium chloride [Klor-Con M20] 20 mEq tablet,ER particles/crystals 20 meq PO DAILY Qty: 30 1RF metoprolol succinate 25 mg Tablet Extended Release 24 Hr 12.5 mg PO DAILY Qty: 30 1RF Continued meloxicam 7.5 mg tablet 7.5 mg PO DAILY simvastatin 20 MG tablet 20 mg PO QHS Patient Comments: CHOLESTEROL LOWERING timolol maleate 1 DROP drops 1 drp Each Eye DAILY Patient Comments: GLAUCOMA lisinopril 10 MG tablet 10 mg PO QHS ondansetron 4 mg tablet,disintegrating 4 mg PO Q8H PRN PRN (Reason: Nausea) Qty: 10 0RF omeprazole 20 mg capsule,delayed release(DR/EC) 20 mg PO DAILY Qty: 30 2RF Referrals / Follow Up: Harley Harding MD [Primary Care Provider] - Within 1 Week Disposition Disposition (needs filled in before D/C Order can be placed): Home, Self Care
--- NOTE | 2023-10-24 10:03 | DS.PCM_ITS ---
Providers Date of Admission: 10/22/23 Date of Discharge: 10/24/23 Primary Care Physician: Dr. Harley Harding MD Reason For Visit: NEW ONSET HF Diagnosis Discharge Diagnosis (1) Acute systolic CHF (congestive heart failure): Status: Acute Code(s): I50.21 - Acute systolic (congestive) heart failure (2) Hypertensive urgency: Status: Acute Code(s): I16.0 - Hypertensive urgency Plan #Acute heart failure * EF unknown * now feels much better. On room air. EKG showed no acute St changes * CXR showed bilateral interstitial edema and infiltrates. * on IV lasix 40mg bid and spironolactone * 2D echo ordered and pending. * #Hypertensive urgency: resolved. on lisinopril and metoprolol. Also on spironolactone. IV hydralazine prn. 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 PT/OT on board. #Hyperlipidemia:on statin DVT prophylaxis: lovenox Medications at Discharge Home Medications simvastatin 20 mg tablet 20 mg PO QHS cholesterol 10/22/13 timolol maleate 0.5 % eye drops 1 drp DAILY eye health 11/01/13 lisinopril 10 mg tablet 10 mg PO QHS blood pressure 04/10/19 omeprazole 20 mg capsule,delayed release 20 mg PO DAILY #30 caps 07/07/22 ondansetron 4 mg disintegrating tablet 4 mg PO Q8H PRN PRN Nausea #10 tabs 07/08/22 meloxicam 7.5 mg tablet 7.5 mg PO DAILY pain 08/29/23 furosemide 40 mg tablet 40 mg PO DAILY #30 tabs 10/24/23 metoprolol succinate 25 mg tablet,extended release 24 hr 12.5 mg (1/2 x 25 mg) PO DAILY #30 tabs 10/24/23 potassium chloride 20 mEq tablet,extended release(part/cryst) (Klor-Con M) 20 meq PO DAILY #30 tabs 10/24/23 Hospital Course Operations None Procedures 2-D Echocardiogram Summary of Care Provided Minutes Spent on Discharge: 55 Hospital Course: Patient is an 88-year-old female with past medical history as outlined was admitted through the ED on 10/22/2023 with a complaint of shortness of breath which have been going on for about 4 days prior to admission. She admitted to swelling in her lower extremities and said he had a supposed be on Lasix but had not been taking it because of the assisted frequency of urination. She had an associated cough and wheezing. Review of systems otherwise negative. On admission in the ED blood pressure was elevated at 230/117 but is subsequently came down after she was given Lasix and hydralazine. Chest x-ray showed bilateral interstitial infiltrates and small left pleural effusion consistent with edema and BNP was elevated at 536.5; EKG showed no acute ST changes. She was admitted and managed for heart failure with initially unknown EF. SHe was diuresed with IV lasix. Her shortness of breath improved and she felt much better. She had 2D echo which showed EF of 65% with stage 1 diastolic function and no regional wall motion abnormality. She remained stable and was discharged home on 10/24/2023. She was discharged on PO lasix 40mg daily with PO potassium 20meq daily. She is to follow up with her PCP within 1-2 weeks. SHe was counseled to be compliant with her lasix. She is to follow up with her PCP within 1-2 weeks. She was placed on metoprolol 12.5mg daily in addition to the lisinopril she was on to help with BP control. Patient was seen and examined prior to discharge. He had no complaints and had an uneventful night. Review of sytems is otherwise negative. Labs and vitals reviewed. HOme meds reviewed and reconciled. Physical Exam Const alert, oriented x3, no apparent distress and well nourished General Appearance: cooperative, comfortable and well developed Orientation / Consciousness: awake HEENT normocephalic, head/scalp atraumatic, hearing grossly normal bilaterally, moist oral mucous membranes and oropharynx normal Eyes PERRL and EOMs intact bilaterally Neck no lymphadenopathy and supple Lymph Lymphatic: no lymphadenopathy noted and no lymphedema noted Resp normal respiratory effort, normal air movement and clear to auscultation bilater ally Cardio regular rate, regular rhythm, S1 normal heart sound, S2 normal heart sound and no murmurs GI normal to inspection, nondistended, normoactive bowel sounds, soft to palpation, non-tender and non-distended Extremity normal capillary refill, no clubbing, cyanosis or edema and no calf tenderness General Extremity: no tenderness to palpation of joints or extremities Skin General Skin Exam: no breakdown Neuro oriented x3, CN's II-XII intact bilaterally, moves all extremities, no focal motor deficits, no sensory deficits noted and deep tendon reflexes 2+ bilaterally Sensorium / Orientation: awake Motor Exam: strength 5/5 throughout and general weakness Psych thought process normal and cooperative Appearance: appropriate Weight / BMI Weight Weight: 194 lb 10.691 oz Body Mass Index (BMI) 30.4 ABG / Lab / Microbiology Data 10/24/23 05:40 10/24/23 05:40 Laboratory: Laboratory Results - last 24 hr 10/24/23 05:40: WBC 4.8, RBC 4.55, Hgb 12.3, Hct 38.6, MCV 84.8, MCH 27.0, MCHC 31.9 L, RDW Std Deviation 42.9, RDW Coeff of [place] 13.7, Plt Count 281, MPV 10.5, Immature Gran % (Auto) 0.200, Neut % (Auto) 47.0, Lymph % (Auto) 37.7, [place] % (Auto) 10.3 H, Eos % (Auto) 4.0, Baso % (Auto) 0.8, Absolute Neuts (auto) 2.2, Absolute Lymphs (auto) 1.80, Nucleated RBC % 0, Sodium 141, Potassium 3.7, Chloride 107, Carbon Dioxide 27.0, Anion Gap 7, BUN 24 H, Creatinine 0.77, Estim Creat Clear Calc 38.54, Est GFR (MDRD) Af Amer 91, Est GFR (MDRD) Non-Af 75, BUN/Creatinine Ratio 31.2 H, Glucose 95, Calcium 9.5 Radiography Diagnostic Testing: Radiology Impression Echocardiogram 10/23/23 05:55 Interpretation Summary Normal LV size. Left ventricular systolic function is normal. The estimated ejection fraction is 65 %. Stage 1 diastolic dysfunction. Mild (1+) aortic valve insufficiency. Pulmonary artery systolic pressure is 32 mmHg. Ordering Physician: Amanuel Sidhu Referring Physician: Edis Harding Performed By: Callie Barnett, NEVA, RVT D/C Instructions Discharge Diet: Low fat / Low cholesterol Weight Bearing Status: Weight bearing as tolerated Call your doctor if you observe: Fever of 101 or Higher, Shortness of breath, Dizziness, Swelling in the ankles, Chest pain and Increased palpitations (irregu lar heartbeat) Meaningful Use Info Meaningful Use Diagnoses (Choose all that apply): CHF CHF MEG/ARB ordered at discharge?: Yes Documented LVEF (%): 65 Discharge Plan Admission Admit Date/Time: 10/22/23 07:47 Primary Reason for Your Visit: acute HfpEF Attending Provider: Kristi Salazar Primary Care Provider: Harley Harding Consulting Providers: Amanuel Sidhu Instructions Patient Instructions: ED Heart Failure, Congestive (CHF) Discharge Orders/Prescriptions Prescriptions: New furosemide 40 mg tablet 40 mg PO DAILY Qty: 30 2RF potassium chloride [Klor-Con M20] 20 mEq tablet,ER particles/crystals 20 meq PO DAILY Qty: 30 1RF metoprolol succinate 25 mg Tablet Extended Release 24 Hr 12.5 mg PO DAILY Qty: 30 1RF Continued meloxicam 7.5 mg tablet 7.5 mg PO DAILY simvastatin 20 MG tablet 20 mg PO QHS Patient Comments: CHOLESTEROL LOWERING timolol maleate 1 DROP drops 1 drp Each Eye DAILY Patient Comments: GLAUCOMA lisinopril 10 MG tablet 10 mg PO QHS ondansetron 4 mg tablet,disintegrating 4 mg PO Q8H PRN PRN (Reason: Nausea) Qty: 10 0RF omeprazole 20 mg capsule,delayed release(DR/EC) 20 mg PO DAILY Qty: 30 2RF Referrals / Follow Up: Harley Harding MD [Primary Care Provider] - 10/31/23 9:20 am Disposition Disposition (needs filled in before D/C Order can be placed): Home, Self Care Charges/Coding Visit Charges Inpatient E&M: 95642 Disch Hosp >30min
[2023-10-24] MEDS: Timolol 0.5% 5ML OPTH.BTL 1 DRP EACH EYE (10:06)
--- NOTE | 2023-10-24 10:24 | PHA.DC.MC.R ---
Pharmacy [facility] has performed discharge medication reconciliation and counseling for this patient. The patient's discharge medication list was reviewed for discrepancies and discrepancies were resolved. The patient was counseled on the following discharge medications and changes in medications for homegoing were reviewed. The Reason for Use, instructions for use, and potential side effects were reviewed for all new medications. The patient's questions regarding all of their medications were answered. 1. Furosemide 40 mg PO daily 2. Metoprolol succinate 12.5 mg PO daily 3. Potassium chloride 20 mEq PO daily The patient was able to verbally demonstrate an understanding of their discharge medications. The patient was counselled on new medications by director [facility]. Medications at Discharge Home Medications simvastatin 20 mg tablet 20 mg PO QHS cholesterol 10/22/13 timolol maleate 0.5 % eye drops 1 drp DAILY eye health 11/01/13 lisinopril 10 mg tablet 10 mg PO QHS blood pressure 04/10/19 omeprazole 20 mg capsule,delayed release 20 mg PO DAILY #30 caps 07/07/22 ondansetron 4 mg disintegrating tablet 4 mg PO Q8H PRN PRN Nausea #10 tabs 07/08/22 meloxicam 7.5 mg tablet 7.5 mg PO DAILY pain 08/29/23 furosemide 40 mg tablet 40 mg PO DAILY #30 tabs 10/24/23 metoprolol succinate 25 mg tablet,extended release 24 hr 12.5 mg (1/2 x 25 mg) PO DAILY #30 tabs 10/24/23 potassium chloride 20 mEq tablet,extended release(part/cryst) (Klor-Con M) 20 meq PO DAILY #30 tabs 10/24/23
--- NOTE | 2023-10-24 14:25 | CASEMGMT ---
Patient has order for discharge. RN DAYANARA reviewed progress with therapy, no therapy recommended at discharge, patient would benefit from walker. TONY CM in to discuss needs at discharge with patient. Patient states she thinks they have a walker at home. Patient agreeable to take script for FWW and fill it if they do not have walker at home. Patient has cane for at home. Patient states she will follow-up with PCP for further needs. Patient had no further questions or concerns at this time.
[2023-10-24 15:15] VITALS: BP 133/64; PULSE 60; RESP 17; TEMP 36.4; O2SAT 100
== END 2023-10-24 16:57 | disposition home or self-care (01) | DRG 291 ==
LOC: ED 07:49 → PCU 08:04
PROVIDERS: Admitting Provider Internal Medicine; Emergency Provider Emergency Medicine; PCP Family Medicine; Visit Provider Student in an Organized Health Care Education/Training Program
DX: I11.0 Hypertensive heart disease with heart failure (principal); I50.21 Acute systolic (congestive) heart failure; E78.00 Pure hypercholesterolemia, unspecified; I16.0 Hypertensive urgency; M19.90 Unspecified osteoarthritis, unspecified site; I49.3 Ventricular premature depolarization; Z79.1 Long term (current) use of non-steroidal anti-inflammatories (NSAID); Z79.899 Other long term (current) drug therapy; Z66 Do not resuscitate; Z87.891 Personal history of nicotine dependence
CPT/HCPCS: 36415; 71045; 80048; 80061; 80076; 83735; 83880; 84100; 84443; 84484; 85025; 93005; 93306; 94640; 94668; 97162; 97166; 99285; A4216; J1940

== ENCOUNTER → 2023-10-31 | Outpatient (CLI) | payer MEDICARE, SELFPAY ==
[2023-10-31 13:02] LABS: Mucous, Urine 0 SEEN /hpf (<or=2+); Red Blood Cells-Urine 0 SEEN /hpf (0-5)
[2023-10-31 15:35] LABS: Absolute Lymphocyte Count 1.97 X10^3/uL (0.83-4.51); Basophil# 0.05 X10^3/uL; Basophil% 0.9 % (0-1); Eosinophil# 0.13 X10^3/uL; Eosinophils% 2.3 % (0-5); Hemoglobin 13.8 g/dL (12.0-15.0); Lymphocyte # 1.97 X10^3/ul (0.83-4.51); Lymphocyte % 34.9 % (19-41); Mean Corp Hgb Conc 31.4 g/dL (32-36); Mean Corpuscular Volume 85.9 fL (81-99); Mean Platelet Vol. 10.9 fl (6.2-12.0); Monocyte# 0.44 X10^3/uL; Monocyte% 7.8 % (0-10); NRBC Flagged by Analyzer 0 % (0-5); Neutrophil # 3.04 X10^3/uL (2.7-7.7); Neutrophil % 53.7 % (47-70); Platelet Count 323 K/mm3 (150-450); RBC Distribution Width CV 13.2 % (11.6-14.6); Red Blood Count 5.12 M/mm3 (4.2-5.4); White Blood Count 5.7 K/mm3 (4.4-11.0)
[2023-10-31 15:38] LABS: Color, Urine Yellow (Yellow); Glucose, Dipstick Normal (Normal); Ketone-Dipstick Negative (Negative); Leukocyte Esterase-Dipstick 500 /ul (Negative); Nitrite-Dipstick Negative (Negative); Occult Blood-Urine 50 /ul (Negative); Protein-Dipstick 30 mg/dl (Negative); Urine Bilirubin Dipstick Negative (Negative); Urine Clarity Sl. Cloudy (Clear); Urine Urobilinogen Normal (Normal)
[2023-10-31 15:53] LABS: ALB/GLOB Ratio 1.2 RATIO (0.9-2.4); AST(SGOT) 19 U/L (15-37); Alanine Aminotransfer ALT/SGPT 21 U/L (13-56); Albumin, Serum 3.9 g/dL (3.2-5.0); Alkaline Phosphatase 86 U/L (45-117); Amphetamine Urine VISTA NEGATIVE (<1000 ng/mL); Amylase 65 U/L (25-115); Anion Gap 4 (5-15); BUN 36 mg/dL (7-18); BUN/Creat Ratio 35.3 RATIO (10-20); Barbiturate Urine VISTA NEGATIVE (< 200 ng/mL); Benzodiazepine Urine VISTA NEGATIVE (< 200 ng/mL); CRP < 2.90 mg/L (0.0-3.0); Calcium,Total 10.5 mg/dL (8.5-10.1); Chloride 105 mmol/L (98-107); Cocaine Urine VISTA NEGATIVE (< 300 ng/mL); Creatinine, Serum 1.02 mg/dL (0.55-1.02); EST Glomerular Filtration Rate 55 mL/min (>60); Ecstacy Urine VISTA NEGATIVE (< 500 ng/mL); Est Glom Filt Rate - Afr Amer 66 mL/min (>60); Globulin 3.2 g/dL (2.2-4.2); Glucose 89 mg/dL (74-106); Iron 106 ug/dL (50-170); Lipase 45 U/L (13-75); Methadone Urine VISTA NEGATIVE (< 300 ng/mL); PCP Urine VISTA NEGATIVE (< 25 ng/mL); Potassium 4.6 mmol/L (3.5-5.1); Protein, Total 7.1 g/dL (6.4-8.2); Sodium Level 137 mmol/L (136-145); THC Urine VISTA NEGATIVE (< 50 ng/mL); Thyroid Stim Hormone (TSH) 0.33 uIU/mL (0.358-3.74); Vista UDS pH Range 5
[2023-10-31 16:01] LABS: Bacteria 2+ /hpf (None Seen); Squamous Epithelial Cells - UA 5-10 SEEN /hpf (5-10); White Blood Cells 25-50 SEEN /hpf (0-5)
[2023-10-31 16:41] LABS: Erythrocyte Sedimentation Rate 3 mm/hr (0-30)
== END | disposition home or self-care (01) ==
LOC: MTLAB 12:58
PROVIDERS: PCP Family Medicine; Referring Provider Family Medicine; Visit Provider Family Medicine
DX: R11.10 Vomiting, unspecified (principal); R44.1 Visual hallucinations
CPT/HCPCS: 80053; 80307; 81001; 82140; 82150; 83540; 83690; 84443; 85025; 85652; 86140; 87086; 87088; 87186

== ENCOUNTER → 2023-11-23 | Outpatient (CLI) | payer MEDICARE, SELFPAY ==
--- NOTE | 2023-11-23 06:53 | MRI_ITS ---
EXAM: MR HEAD WITHOUT INTRAVENOUS CONTRAST CLINICAL INDICATION: VISUAL HALLUCINATIONS TECHNIQUE: Multiplanar and multisequence MR images of the brain were obtained without intravenous contrast. COMPARISON: No relevant prior studies available. FINDINGS: BRAIN AND EXTRA-AXIAL SPACES: Periventricular small vessel ischemic change. No midline shift or hydrocephalus. Diffuse parenchymal atrophy. Posterior fossa structures are unremarkable. Basal cisterns are patent. No acute intracranial hemorrhage, mass effect or edema. No evidence of acute cortical stroke. SELLA: Unremarkable. Normal sella turcica, pituitary gland, infundibular stalk, optic chiasm and hypothalamus. AUDITORY SYSTEM: Unremarkable. The internal auditory canals are patent. BONES/JOINTS: Unremarkable. No discrete lytic or blastic abnormalities. SINUSES: Mild scattered paranasal sinus mucosal thickening with no air-fluid levels. MASTOID AIR CELLS: Mastoid air cells are clear. ORBITS: Unremarkable as visualized. Both globes, extraocular muscles, optic nerves and retrobulbar fat appear unremarkable. VASCULATURE: Unremarkable as visualized. Normal flow voids in the major intracranial circulation. MRI/Brain without Contrast IMPRESSION: 1. No evidence of acute intracranial pathology. 2. Diffuse involutional changes and chronic ischemic small vessel white matter disease. Electronically Signed: Nitin Ritter MD at 23:01 EST ,
--- OUTSIDE RECORDS SUMMARY | 2023-11-23 06:54 | XMS RPT_ITS | CCD ---
Author Name Unknown Address [address] [place] [address] Organization [facility] Care Team Providers Care Lifestyle Consultant Name Role Phone MARIALUISA FAITH COLLIER Unavailable Unavailable CARISA, DAESUNG Unavailable Unavailable CARISA, DAESUNG Unavailable Unavailable CARISA, DAESUNG Unavailable Unavailable Allergies Allergy Classification Reported Allergen(s) Allergy Type Date of Onset Reaction(s) Facility (1 source) etodolac; Translations: [ETODOLAC] Drug Allergy 5 [facility] Repository (1 source) latanoprost; Translations: [LATANOPROST] Drug Allergy 6 [facility] Repository (1 source) naproxen; Translations: [NAPROXEN] Drug Allergy 5 [facility] Repository (1 source) senna leaves; Translations: [SENNA] Drug Allergy 5 [facility] Repository (1 source) HYLAN G-F 20; Translations: [HYLAN G-F 20] Propensity to adverse reactions to drug (disorder) 6 [facility] Repository Problems Active Problems Problem Classification Problem Date Documented Da te Episodic/Chronic Unclassified (1 source) Unknown / UNK(Unknown) Onset: 05-29-2017 Past or Other Problems Problem Classification Problem Date Documented Da te Episodic/Chronic Cancer; other and unspecified primary (1 source) Personal history of malignant neoplasm of soft tissue; Translations: [Personal history of malignant neoplasm of soft tissue] Onset: 05-29-2017 Episodic Results Test Name Value Interpretation Reference Range Facil ity Encounters Encounter Date Encounter Type Care Provider Facility Start: 06-02-2017 End: 06-05-2017 Ambulatory [facility] Start: 05-29-2017 End: 06-02-2017 [facility] Summary Purpose Family History No Family History Records Found Advance Directives No Advanced Directives Records Found Additional Source Comments INFORMATION SOURCE (unrecogn ized section and content) FOR RECORDS PERTAINING TO PATIENTS WHO ARE OR HAVE BEEN ENROLLED IN A CHEMICAL DEPENDENCY/SUBSTANCEABUSE PROGRAM, SOME INFORMATION MAY BE OMITTED. This clinical summary was aggregated from multiple sources. Caution should be exercised in using it in the provision of clinical care. This summary normalizes information from multiple sources, and as a consequence, information in this document may materially change the coding, format and clinical context of patient data. In addition, data may be omitted in some cases. CLINICAL DECISIONS SHOULD BE BASED ON THE PRIMARY CLINICAL RECORDS. [facility]. provides no warranty or guarantee of the accuracy or completeness of information in this document.
== END | disposition home or self-care (01) ==
PROVIDERS: PCP Family Medicine; Referring Provider Family Medicine; Visit Provider Family Medicine
DX: R44.1 Visual hallucinations (principal)
CPT/HCPCS: 70551

== ENCOUNTER → 2023-12-13 | Outpatient (CLI) | payer MEDICARE, SELFPAY ==
[2023-12-13 18:04] LABS: Ionized Calcium 5.29 mg/dL (4.36-5.20)
[2023-12-13 18:20] LABS: Anion Gap 6 (5-15); BUN 22 mg/dL (7-18); BUN/Creat Ratio 29.4 RATIO (10-20); Calcium,Total 9.9 mg/dL (8.5-10.1); Chloride 113 mmol/L (98-107); Creatinine, Serum 0.75 mg/dL (0.55-1.02); EST Glomerular Filtration Rate 78 mL/min (>60); Est Glom Filt Rate - Afr Amer 94 mL/min (>60); Glucose 81 mg/dL (74-106); Phosphorus 3.1 mg/dL (2.5-4.9); Potassium 3.8 mmol/L (3.5-5.1); Sodium Level 143 mmol/L (136-145); Thyroid Stim Hormone (TSH) 0.44 uIU/mL (0.358-3.74)
[2023-12-13 18:40] LABS: Vitamin D,25 Hydroxy 47.4 ng/mL
[2023-12-13 23:03] LABS: Ionized Calcium Order 5.29
== END | disposition home or self-care (01) ==
LOC: MFPLAB 15:00
PROVIDERS: PCP Family Medicine; Visit Provider Family Medicine
DX: E83.52 Hypercalcemia (principal)
CPT/HCPCS: 36415; 80048; 82306; 82330; 83735; 83970; 84100; 84443

== ENCOUNTER → 2024-01-03 | Outpatient (CLI) | payer MEDICARE, SELFPAY ==
--- NOTE | 2024-01-03 10:08 | NM_ITS ---
CLINICAL: 88-year-old female with history of hypercalcemia and left neck mass. 99m Tc SESTAMIBI DUAL PHASE PARATHYROID SCINTIGRAPHY COMPARISON: Thyroid ultrasound report 08/08/2023 FINDINGS: Following the intravenous administration of 26.3 mCi of 99m Tc sestamibi, image acquisitions of the anterior neck at 15 minutes and 3.0 hours post radiopharmaceutical provision reveal: 1. Immediate static blood pool acquisitions demonstrate distribution of the radiopharmaceutical in an enlarged U-shaped thyroid gland with the left lobe demonstrating central photopenia. 2. Delayed images depict persistent visualization of the enlarged U-shaped thyroid gland with photopenia demonstrated in the left lobe, unchanged. NM/Parathyroid Scan IMPRESSION: 1. NEGATIVE 99m Tc SESTAMIBI PARATHYROID IMAGING DUAL PHASE EXAMINATION. 2. Incomplete-delayed washout of the radiopharmaceutical from the entire functioning thyroid colloid may be secondary to multinodular goiter, chronic lymphocytic thyroiditis. (Stephens, Radiographics 19: 601, 1999). Electronically Signed: Feroz Lopez DO at 9:27 EST ,
--- OUTSIDE RECORDS SUMMARY | 2024-01-03 12:47 | XMS RPT_ITS | CCD ---
Author Name Unknown Address [address] [place] [address] Organization [facility] Care Team Providers Care Pigment Weigher Name Role Phone FAITH ELAM Unavailable Unavailable CARISA, DAESUNG Unavailable Unavailable CARISA, DAESUNG Unavailable Unavailable CARISA, DAESUNG Unavailable Unavailable Allergies Allergy Classification Reported Allergen(s) Allergy Type Date of Onset Reaction(s) Facility (1 source) etodolac; Translations: [ETODOLAC] Drug Allergy 5 [facility] Repository (1 source) latanoprost; Translations: [LATANOPROST] Drug Allergy 6 [facility] Repository (1 source) naproxen; Translations: [NAPROXEN] Drug Allergy 5 [facility] Repository (1 source) senna leaves; Translations: [SENNA] Drug Allergy 5 [facility] Repository (1 source) HYLAN G-F 20; Translations: [HYLAN G-F 20] Propensity to adverse reactions to drug (disorder) 6 [facility] Repository Problems Active Problems Problem Classification Problem [...] Provider Facility Start: 06-02-2017 End: 06-05-2017 Ambulatory [facility] Start: 05-29-2017 End: 06-02-2017 [facility] Summary Purpose Family History No Family History [...] BE BASED ON THE PRIMARY CLINICAL RECORDS. [facility]. provides no warranty or guarantee of the accuracy or completeness of information in this document.
== END | disposition home or self-care (01) ==
LOC: NM 10:07
PROVIDERS: PCP Family Medicine; Referring Provider Family Medicine; Visit Provider Family Medicine
DX: E83.52 Hypercalcemia (principal)
CPT/HCPCS: 78070; A9500

== ENCOUNTER → 2024-02-19 | Outpatient (CLI) | payer MEDICARE, SELFPAY ==
[2024-02-19 18:19] LABS: Anion Gap 6 (5-15); BUN 21 mg/dL (7-18); BUN/Creat Ratio 29.8 RATIO (10-20); Calcium,Total 9.9 mg/dL (8.5-10.1); Chloride 109 mmol/L (98-107); EST Glomerular Filtration Rate 84 mL/min (>60); Est Glom Filt Rate - Afr Amer 101 mL/min (>60); Glucose 91 mg/dL (74-106); Phosphorus 2.9 mg/dL (2.5-4.9); Potassium 3.5 mmol/L (3.5-5.1); Sodium Level 140 mmol/L (136-145); Thyroid Stim Hormone (TSH) 0.89 uIU/mL (0.358-3.74)
[2024-02-19 18:24] LABS: PTHIN 144.9 pg/mL (18.4-80.1)
== END | disposition home or self-care (01) ==
LOC: MFPLAB 15:02
PROVIDERS: PCP Family Medicine; Visit Provider Family Medicine
DX: I10 Essential (primary) hypertension (principal); R79.89 Other specified abnormal findings of blood chemistry; E55.9 Vitamin D deficiency, unspecified
CPT/HCPCS: 36415; 80048; 82306; 83970; 84100; 84443

== ENCOUNTER → 2024-02-26 | Outpatient (CLI) | payer MEDICARE, SELFPAY ==
[2024-02-26 14:37] LABS: Mucous, Urine 0 SEEN /hpf (<or=2+)
--- NOTE | 2024-02-26 14:50 | RAD_ITS ---
STUDY: X-RAY - ABDOMEN/PELVIS REASON FOR EXAM: Female, 88 years old. Abdominal pain. TECHNIQUE: AP supine and upright views of the abdomen and pelvis. COMPARISON: 04/05/2023 FINDINGS: Normal visualized lung bases. Moderate gaseous distention of ascending and transverse segments of the colon with air-fluid levels on the upright study. No disproportionate dilatation of bowel. Slightly more gaseous distention than on the prior study. Moderate amount of feces in the colon obscure much of the intra-abdominal outlines. Marked vascular calcification and clips in the left lower quadrant of the abdomen and overlying the left pelvis. Osteopenia with levoscoliosis of the lower lumbosacral spine and arthrosis of the sacroiliac joints, symphysis pubis and both hips, unchanged. RAD/[employer]d Inc Decub and/or Erect IMPRESSION: Slightly more gaseous distention of colon with air-fluid levels. No acute finding. Electronically Signed: Charles Edouard MD at 15:16 EDT ,
[2024-02-26 18:14] LABS: Absolute Lymphocyte Count 1.38 X10^3/uL (0.83-4.51); Absolute Neutrophil Count 2.5 X10^3/uL (2.0-7.7); Basophil# 0.02 X10^3/uL; Basophil% 0.5 % (0-1); Eosinophil# 0.09 X10^3/uL; Eosinophils% 2.1 % (0-5); Hematocrit 41.2 % (37-47); Hemoglobin 13.2 g/dL (12.0-15.0); Lymphocyte # 1.38 X10^3/ul (0.83-4.51); Lymphocyte % 31.9 % (19-41); Mean Corpuscular Volume 84.3 fL (81-99); Mean Platelet Vol. 10.5 fl (6.2-12.0); Monocyte# 0.38 X10^3/uL; Monocyte% 8.8 % (0-10); NRBC Flagged by Analyzer 0 % (0-5); Neutrophil # 2.46 X10^3/uL (2.7-7.7); Neutrophil % 56.7 % (47-70); Platelet Count 261 K/mm3 (150-450); RBC Distribution Width CV 14.6 % (11.6-14.6); RBC Distribution Width SD 44.3 fl (35.1-43.9); Red Blood Count 4.89 M/mm3 (4.2-5.4); White Blood Count 4.3 K/mm3 (4.4-11.0)
[2024-02-26 18:42] LABS: ALB/GLOB Ratio 1.2 RATIO (0.9-2.4); AST(SGOT) 21 U/L (15-37); Alanine Aminotransfer ALT/SGPT 18 U/L (13-56); Albumin, Serum 3.7 g/dL (3.2-5.0); Alkaline Phosphatase 80 U/L (45-117); Amylase 50 U/L (25-115); Anion Gap 6 (5-15); BUN 21 mg/dL (7-18); BUN/Creat Ratio 26.9 RATIO (10-20); Calcium,Total 10.1 mg/dL (8.5-10.1); Chloride 109 mmol/L (98-107); Creatinine, Serum 0.78 mg/dL (0.55-1.02); EST Glomerular Filtration Rate 74 mL/min (>60); Est Glom Filt Rate - Afr Amer 90 mL/min (>60); Globulin 3.1 g/dL (2.2-4.2); Glucose 79 mg/dL (74-106); Lipase 23 U/L (13-75); Potassium 3.4 mmol/L (3.5-5.1); Protein, Total 6.8 g/dL (6.4-8.2); Sodium Level 142 mmol/L (136-145)
[2024-02-26 18:49] LABS: Color, Urine Yellow (Yellow); Glucose, Dipstick Normal (Normal); Ketone-Dipstick 5 mg/dl (Negative); Leukocyte Esterase-Dipstick 500 /ul (Negative); Nitrite-Dipstick Positive (Negative); Occult Blood-Urine 250 /ul (Negative); Protein-Dipstick 30 mg/dl (Negative); Specific Gravity, Urine 1.025 (1.002-1.030); Urine Bilirubin Dipstick Negative (Negative); Urine Clarity Cloudy (Clear); Urine Urobilinogen 1 mg/dl (Normal)
[2024-02-26 19:43] LABS: Red Blood Cells-Urine 10-25 SEEN /hpf (0-5); Squamous Epithelial Cells - UA 0-5 SEEN /hpf (5-10); White Blood Cells 25-50 SEEN /hpf (0-5)
[2024-02-26 19:44] LABS: Amorphous Sediment 1+ URATE; Bacteria RARE /hpf (None Seen)
== END | disposition home or self-care (01) ==
PROVIDERS: PCP Family Medicine; Referring Provider Family Medicine; Visit Provider Family Medicine
DX: R10.9 Unspecified abdominal pain (principal); I10 Essential (primary) hypertension
CPT/HCPCS: 36415; 74019; 80053; 81001; 82150; 83690; 85025; 87086; 87088; 87186

== ENCOUNTER 2024-03-24 21:57 | Emergency (ER) | payer MEDICARE, SELFPAY ==
[2024-03-24] VITALS (7 sets, daily range): BP systolic 189–237; BP diastolic 52–79; PULSE 66–72; RESP 14–23; TEMP 36.1; O2SAT 94–100; BMI 25.4
--- NOTE | 2024-03-24 22:08 | CT_ITS ---
EXAM: CT ABDOMEN AND PELVIS WITHOUT INTRAVENOUS CONTRAST CLINICAL INDICATION: RLQ pain TECHNIQUE: Helically acquired images were obtained of the abdomen and pelvis without intravenous contrast. This CT exam was performed using one or more of the following dose reduction techniques: automated exposure control, adjustment of the mA and/or kV according to patient size, and/or use of iterative reconstruction technique. RADIATION DOSE: CTDIvol = 10.29 mGy, DLP = 516.81 mGy-cm COMPARISON: CT abdomen and pelvis 05/15/2022. FINDINGS: LOWER THORAX: Unremarkable. Lung bases are clear. No cardiomegaly. No significant pericardial effusion. ABDOMEN: LIVER: Multiple stable hepatic cysts. No follow-up imaging is recommended per consensus recommendations based on imaging criteria. GALLBLADDER AND BILE DUCTS: Stable partially calcified gallstone measuring 2.2 cm. No gallbladder distention or wall edema. No intra- or extrahepatic biliary ductal dilation. PANCREAS: Unremarkable. No focal cystic mass. SPLEEN: Unremarkable. Normal size without focal cystic or solid mass. ADRENALS: Unremarkable. No nodules. KIDNEYS AND URETERS: There is a 3 mm stone in the distal third of the right ureter causing mild obstructive changes. Normal renal size and position. 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 No stomach or bowel distention. PELVIS: APPENDIX: The appendix is normal. BLADDER: Unremarkable. REPRODUCTIVE: Unremarkable as visualized. No mass. ABDOMEN and PELVIS: INTRAPERITONEAL SPACE: Unremarkable. No ascites or other fluid collection. No free air. BONES/JOINTS: Degenerative changes of the spine. Degenerative anterolisthesis of L4 on L5. No suspicious lytic or blastic abnormality. SOFT TISSUES: Unremarkable. No discrete abdominal or pelvic wall hernia. VASCULATURE: Moderate atherosclerotic changes of the abdominal aorta without dilation. LYMPH NODES: Unremarkable. No enlarged lymph nodes. CT/Abdomen/Pelvis without Cont IMPRESSION: 1. There is a 3 mm stone in the distal third of the right ureter causing mild obstructive changes. 2. Stable partially calcified gallstone measuring 2.2 cm. Electronically Signed: Hector Venegas MD at 23:19 EDT ,
--- NOTE | 2024-03-24 22:09 | EDS_ITS ---
HPI History of Present Illness Chief Complaint: Abd Pain Informant: patient Onset/Context/Timing Onset: Today Context: Gradual Onset Current Severity: Moderate Maximum Severity: Moderate Narrative Narrative: Patient presents secondary right lower quadrant abdominal pain. She states about a half an hour ago pain came on gradually but became severe and rather short timeframe. She complains of pain in the right lower quadrant of her abdomen as well as in her right lower back. She states she just recently finished a 7-day course of antibiotics for UTI. She does have a history of 2 prior kidney stones, but states they were never confirmed with testing. 2 nights ago she did have vomiting that resolved yesterday. She states yesterday she pretty much slept all day. Last bowel movement was yesterday. She has not been passing much gas today. She did eat a little bit today with no vomiting. [facility] Medical History Alcohol use Ambulates with cane Anxiety Arthritis Back pain Cancer Depression FH: total knee replacement Former smoker High cholesterol History of edema History of stress test Hypertension Post-menopausal Shortness of breath on exertion Wears dentures Wears glasses Home Medications simvastatin 20 mg tablet 20 mg PO QHS cholesterol 10/22/13 [History Last Taken 10/21/23] timolol maleate 0.5 % eye drops 1 drp DAILY eye health 11/01/13 [History Last Taken 10/21/23] lisinopril 10 mg tablet 10 mg PO QHS blood pressure 04/10/19 [History Last Taken 10/21/23] omeprazole 20 mg capsule,delayed release 20 mg PO DAILY #30 caps 07/07/22 [Rx Last Taken 10/21/23] ondansetron 4 mg disintegrating tablet 4 mg PO Q8H PRN PRN Nausea #10 tabs 07/08/22 [Rx Last Taken Unknown] meloxicam 7.5 mg tablet 7.5 mg PO DAILY pain 08/29/23 [History Last Taken 10/21/23] furosemide 40 mg tablet 40 mg PO DAILY #30 tabs 10/24/23 [Rx Last Taken Unknown] metoprolol succinate 25 mg tablet,extended release 24 hr 12.5 mg (1/2 x 25 mg) PO DAILY #30 tabs 10/24/23 [Rx Last Taken Unknown] potassium chloride 20 mEq tablet,extended release(part/cryst) (Klor-Con M) 20 meq PO DAILY #30 tabs 10/24/23 [Rx Last Taken Unknown] cefuroxime axetil 500 mg tablet 500 mg PO BID #14 tabs 03/25/24 [Rx Last Taken Unknown] hydrocodone-acetaminophen 5-325mg 5mg-325mg 1 tab PO Q6H PRN PRN Pain 3 days #10 TABLETS 03/25/24 [Rx Last Taken Unknown] Allergy/AdvReac Type Severity Reaction Status Date / Time morphine AdvReac Intermediate Inflammation Verified 03/24/24 21:59 of vein Surgical History H/O breast biopsy H/O removal of cyst History of abdominal surgery Hx of bilateral cataract extraction Hx of dilation and curettage Hx of external ear surgery Social History household members: spouse Smoking Status: Former smoker alcohol intake: current ROS ROS ED Constitutional Constitutional ED: Denies chills or fever(s) Eyes Eyes: Denies discharge from eye(s) ENT ENT ED: Denies discharge from eye(s), rhinorrhea or sore throat Cardiovascular Cardiovascular: Denies chest pain or palpitations Respiratory/Chest Respiratory/Chest: Denies cough or dyspnea Gastrointestinal Gastrointestinal: Reports abdominal pain, nausea and vomiting; Denies diarrhea Genitourinary Genitourinary ED: Denies dysuria or urinary frequency Musculoskeletal Musculoskeletal: Reports back pain; Denies extremity pain Integumentary Denies Abrasions or rash Neurologic Neurologic: Denies headache(s) or weakness Allergic/Immunologic Allergic/Immunologic ED: Denies lip swelling or urticaria EXAM Physical Exam Const Vital Signs: 03/24/24 21:57 03/24/24 23:34 03/24/24 23:42 Temperature 97 F L Temperature Source Temporal Pulse Rate 67 68 Respiratory Rate 16 14 Blood Pressure 237/59 H 214/79 H 189/58 H Blood Pressure Mean 118 124 101 Pulse Ox 100 99 Oxygen Delivery Method Room Air Room Air 03/25/24 00:14 03/25/24 00:50 03/24/24 23:05 Temperature 96.5 F L Temperature Source Pulse Rate 72 77 66 Respiratory Rate 21 H 16 19 H Blood Pressure 160/47 H 147/30 H Blood Pressure Mean 84 69 Pulse Ox 99 95 94 Oxygen Delivery Method Room Air 03/24/24 23:15 03/24/24 23:30 03/24/24 23:31 Temperature Temperature Source Pulse Rate 66 72 71 Respiratory Rate 17 14 23 H Blood Pressure 211/52 H 214/79 H Blood Pressure Mean 99 117 Pulse Ox 96 Oxygen Delivery Method Positive well nourished and well developed General Appearance ED: well developed HEENT Reports moist mucous membranes Eyes EOMs intact bilaterally Chest Wall inspection of chest normal and palpation of chest normal Resp normal respiratory effort and clear to auscultation bilaterally Cardio regular rate and regular rhythm GI GI Narrative: Abdomen soft mild tenderness in the right lower quadrant. No guarding or rebound. No palpable masses. Hypoactive bowel sounds. Extremity normal to inspection Neuro oriented x3 and no sensory deficits noted Motor Exam: strength 5/5 throughout Psych mental status grossly normal Skin no rashes or lesions noted MDM MDM MDM Narrative Medical decision making narrative: Patient placed on desk monitor. IV line established. Patient is given IV fluids along with fentanyl and Zofran for pain and nausea. Labwork obtained to evaluate for leukocytosis, anemia, and electrolyte derangement. Urinalysis obtained to evaluate for infection/hematuria. CT flank obtained to evaluate for potential pyelonephritis, renal stone, appendicitis, bowel obstruction. History & Record Review Discussion w/independent historian: Patient and Significant other Additional record(s) reviewed:: Prior inpatient record, Prior ED visit and Prior labs Lab Data Attestation: I reviewed the patient's lab results. Labs: Laboratory Results - last 24 hr 03/24/24 03/24/24 22:27 22:50 WBC 6.5 RBC 5.10 Hgb 14.0 Hct 42.7 MCV 83.7 MCH 27.5 MCHC 32.8 RDW Std Deviation 42.6 RDW Coeff of [place] 14.1 Plt Count 321 MPV 10.4 Immature Gran % (Auto) 0.300 Neut % (Auto) 52.6 Lymph % (Auto) 36.7 [place] % (Auto) 7.4 Eos % (Auto) 2.5 Baso % (Auto) 0.5 Absolute Neuts (auto) 3.4 Absolute Lymphs (auto) 2.37 Nucleated RBC % 0 Sodium 141 Potassium 3.4 L Chloride 107 Carbon Dioxide 28.0 Anion Gap 6 BUN 25 H Creatinine 1.26 H Estim Creat Clear Calc 30.59 Est GFR (MDRD) Af Amer 52 L Est GFR (MDRD) Non-Af 43 L BUN/Creatinine Ratio 19.8 Glucose 114 H Calcium 9.9 Total Bilirubin 0.60 Direct Bilirubin 0.18 AST 17 ALT 16 Alkaline Phosphatase 81 Total Protein 6.9 Albumin 3.9 Globulin 3.0 Lipase 44 Urine Color Yellow Urine Clarity Cloudy Urine pH 6.0 Ur Specific [place] 1.020 Urine Protein 100 H Urine Glucose (UA) Normal Urine Ketones Negative Urine Occult Blood 250 H Urine Nitrite Positive H Urine Bilirubin Negative Urine Urobilinogen Normal Ur Leukocyte Esterase 500 H Urine RBC 10-25 SEEN Urine WBC 10-25 SEEN Ur Squamous Epith Cells 0 SEEN Ur Transition Epith Cell 0-5 SEEN Urine Bacteria 4+ Urine Mucus 0 SEEN Radiography Diagnostic Testing: Clinical Impression(s) from Imaging Studies Abdomen/Pelvis CT 03/24/24 22:08 IMPRESSION: 1. There is a 3 mm stone in the distal third of the right ureter causing mild obstructive changes. 2. Stable partially calcified gallstone measuring 2.2 cm. Electronically Signed: Hector Venegas MD at 23:19 EDT , Treatment and Re-Evaluation :: CBC was normal white count 6.5 with normal differential. Hemoglobin is 14.0. Chemistry studies reveal slightly low potassium at 3.4. BUN is 25 and creatinine is 1.26. Glucose is 114. LFTs and lipase are unremarkable. Urinalysis reveals positive nitrites with 10-25 red cells, 10-25 white cells, 4+ bacteria. 0-5 epithelial cells are noted. CT scan the flank reveals a 3 mm stone in the distal third of the right ureter causing mild obstructive changes. Stable partially calcified gallstone measuring 2.2 cm is noted. Patient did receive a second dose of fentanyl for pain along with a dose of hydralazine for her hypertension. She is due for her evening blood pressure medications. After the CT result is noted she did receive a small dose, 15 mg, of Toradol. Patient is given a dose of IV Rocephin and urine culture is sent. I discussed the case with Dr. Milner, on-call for urology. Given the patient clinically looks well and her pain is much better controlled, he is okay with her going home on antibiotics with close follow-up. At this time on repeat examination her systolic blood pressure is 139. She has Zofran at home and she takes meloxicam on a regular basis. I will write her for [place] along with Ceftin for 7 days. She is given follow-up instructions with urology. Return instructions were also given. Discharge Plan Triage Chief Complaint: Abd Pain ED Provider: Imani Knight Dx/Rx/DC Orders Clinical Impression: UTI (urinary tract infection), Ureterolithiasis, Hypertension Instructions: ED Hypertension, Established, ED Cystitis Female Adult, ED Kidney Stone with Pain Prescriptions: New hydrocodone-acetaminophen 5-325 mg tablet 1 tab PO Q6H PRN PRN (Reason: Pain) 3 Days Qty: 10 0RF cefuroxime axetil 500 mg tablet 500 mg PO BID Qty: 14 0RF No Action meloxicam 7.5 mg tablet 7.5 mg PO DAILY simvastatin 20 MG tablet 20 mg PO QHS Patient Comments: CHOLESTEROL LOWERING timolol maleate 1 DROP drops 1 drp Each Eye DAILY Patient Comments: GLAUCOMA lisinopril 10 MG tablet 10 mg PO QHS ondansetron 4 mg tablet,disintegrating 4 mg PO Q8H PRN PRN (Reason: Nausea) Qty: 10 0RF furosemide 40 mg tablet 40 mg PO DAILY Qty: 30 2RF potassium chloride [Klor-Con M20] 20 mEq tablet,ER particles/crystals 20 meq PO DAILY Qty: 30 1RF metoprolol succinate 25 mg Tablet Extended Release 24 Hr 12.5 mg PO DAILY Qty: 30 1RF omeprazole 20 mg capsule,delayed release(DR/EC) 20 mg PO DAILY Qty: 30 2RF Primary Care Provider: Edis Harding Referrals: Edis Harding MD [Primary Care Provider] - Hilda Strickland MD [Med Staff - Active Staff] - As soon as possible Jordan Milner MD [Med Staff - Active Staff] - As soon as possible Disposition Disposition: Home, Self Care
[2024-03-24] MEDS: 0.9% Normal Saline (1000mL) 1,000 ML 150 ML IV (22:36)
[2024-03-24] MEDS: Ondansetron 4 MG/2 ML Vial IV (22:36)
[2024-03-24] MEDS: fentaNYL 100 MCG/2 ML Ampul 12.5 MCG IV ×2 (22:36→23:28)
[2024-03-24 22:41] LABS: Absolute Lymphocyte Count 2.37 X10^3/uL (0.83-4.51); Absolute Neutrophil Count 3.4 X10^3/uL (2.0-7.7); Basophil# 0.03 X10^3/uL; Basophil% 0.5 % (0-1); Eosinophil# 0.16 X10^3/uL; Eosinophils% 2.5 % (0-5); Hematocrit 42.7 % (37-47); Lymphocyte # 2.37 X10^3/ul (0.83-4.51); Lymphocyte % 36.7 % (19-41); Mean Corp Hgb Conc 32.8 g/dL (32-36); Mean Corpuscular Hgb 27.5 pg (27.0-32.0); Mean Corpuscular Volume 83.7 fL (81-99); Mean Platelet Vol. 10.4 fl (6.2-12.0); Monocyte# 0.48 X10^3/uL; Monocyte% 7.4 % (0-10); NRBC Flagged by Analyzer 0 % (0-5); Neutrophil # 3.39 X10^3/uL (2.7-7.7); Neutrophil % 52.6 % (47-70); Platelet Count 321 K/mm3 (150-450); RBC Distribution Width CV 14.1 % (11.6-14.6); RBC Distribution Width SD 42.6 fl (35.1-43.9); White Blood Count 6.5 K/mm3 (4.4-11.0)
[2024-03-24 22:55] LABS: Mucous, Urine 0 SEEN /hpf (<or=2+); Squamous Epithelial Cells - UA 0 SEEN /hpf (5-10)
[2024-03-24 22:59] LABS: AST(SGOT) 17 U/L (15-37); Alanine Aminotransfer ALT/SGPT 16 U/L (13-56); Albumin, Serum 3.9 g/dL (3.2-5.0); Alkaline Phosphatase 81 U/L (45-117); Anion Gap 6 (5-15); BUN 25 mg/dL (7-18); BUN/Creat Ratio 19.8 RATIO (10-20); Bilirubin, Direct 0.18 mg/dL (0.00-0.30); Calcium,Total 9.9 mg/dL (8.5-10.1); Chloride 107 mmol/L (98-107); Creatinine, Serum 1.26 mg/dL (0.55-1.02); EST Glomerular Filtration Rate 43 mL/min (>60); Est Glom Filt Rate - Afr Amer 52 mL/min (>60); Estimated Creatinine Clearance 30.59 ml/min; Glucose 114 mg/dL (74-106); Lipase 44 U/L (13-75); Potassium 3.4 mmol/L (3.5-5.1); Protein, Total 6.9 g/dL (6.4-8.2); Sodium Level 141 mmol/L (136-145)
[2024-03-24 23:23] LABS: Color, Urine Yellow (Yellow); Glucose, Dipstick Normal (Normal); Ketone-Dipstick Negative (Negative); Leukocyte Esterase-Dipstick 500 /ul (Negative); Nitrite-Dipstick Positive (Negative); Occult Blood-Urine 250 /ul (Negative); Protein-Dipstick 100 mg/dl (Negative); Urine Bilirubin Dipstick Negative (Negative); Urine Clarity Cloudy (Clear); Urine Urobilinogen Normal (Normal)
[2024-03-24] MEDS: hydrALAZINE 20 MG/ML Vial 10 MG IV (23:29)
[2024-03-24 23:39] LABS: Bacteria 4+ /hpf (None Seen); Red Blood Cells-Urine 10-25 SEEN /hpf (0-5); Transitional Epithelial - Ur 0-5 SEEN /hpf (0-5); White Blood Cells 10-25 SEEN /hpf (0-5)
[2024-03-24] MEDS: Ketorolac 15 MG/ML Vial IV (23:39)
[2024-03-25] MEDS: Ceftriaxone 1 GM/50 ML BAG IV (00:10)
[2024-03-25 00:14] VITALS: BP 160/47; PULSE 72; RESP 21; O2SAT 99
[2024-03-25 00:50] VITALS: BP 147/30; PULSE 77; RESP 16; TEMP 35.8; O2SAT 95
== END 2024-03-25 00:52 | disposition home or self-care (01) ==
PROVIDERS: Emergency Provider Emergency Medicine; PCP Family Medicine; Visit Provider Emergency Medicine
DX: N39.0 Urinary tract infection, site not specified (principal); N20.1 Calculus of ureter; I10 Essential (primary) hypertension; E78.00 Pure hypercholesterolemia, unspecified; Z87.891 Personal history of nicotine dependence; Z79.899 Other long term (current) drug therapy
CPT/HCPCS: 74176; 80048; 80076; 81001; 83690; 85025; 87077; 87086; 87088; 87186; 96361; 96365; 96375; 96376; 99284; J7030; J7050; A4216; J2405

== ENCOUNTER 2024-03-29 01:29 | Emergency (ER) | payer MEDICARE, SELFPAY ==
[2024-03-29 01:30] VITALS: BP 230/69; PULSE 70; RESP 17; TEMP 36.8; O2SAT 99; BMI 25.7
--- NOTE | 2024-03-29 02:03 | CT_ITS ---
INDICATION: flank pain EXAMINATION: CT ABDOMEN AND PELVIS WITHOUT CONTRAST - CT Abdomen And Pelvis W/O Contrast Injection TECHNIQUE: Helically acquired images were obtained of the abdomen and pelvis without oral or IV contrast. A radiation dose optimization technique was used for this scan. IV Contrast dosage and agent: None. Oral contrast: None. RADIATION DOSAGE (If Supplied By Facility): CTDIvol = ( 8.71 ) mGy, DLP = ( 391.57 ) mGycm COMPARISON: Prior study dated: 03/24/2024 FINDINGS: LOWER CHEST: Lung bases are clear. No cardiomegaly or pericardial effusion. LIVER: The liver is normal in size, shape, and attenuation. Cysts are seen in the liver parenchyma, including a peripherally calcified cyst at the inferior left lobe. This is unchanged from recent prior. GALLBLADDER AND BILIARY TREE: The gallbladder is normally distended. Stone identified in the gallbladder lumen.. No gallbladder wall thickening or edema. No intra- or extrahepatic biliary ductal dilation. PANCREAS: No focal cystic or solid mass. SPLEEN: Normal size without focal cystic or solid mass. ADRENAL GLANDS: No nodules. KIDNEYS AND URETERS: Normal renal size and position. Mild right hydroureteronephrosis with asymmetric perinephric fat stranding. 0.6 cm calculus seen at the pelvic inlet, similar in position to prior. PERITONEUM: No ascites or free air. Small amount of blood products layering in the pelvis. BOWEL: The stomach is unremarkable. Normal caliber small bowel. No obstruction. No colonic wall thickening or inflammatory changes. No evidence of acute appendicitis. LYMPH NODES: No enlarged mesenteric or retroperitoneal lymph nodes. VESSELS: Normal caliber aorta with moderate atherosclerotic calcification. URINARY BLADDER: Unremarkable. REPRODUCTIVE ORGANS: No pelvic masses. ABDOMINAL WALL: 1.7 cm pocket of fluid along the anterior ventral abdominal wall, unchanged from prior. BONES: No acute or suspicious osseous abnormality. Mild degenerative changes throughout the spine. CT/Abdomen/Pelvis without Cont IMPRESSION: Mild right hydroureteronephrosis which is similar to prior. Distal right ureteral calculus noted. Cholelithiasis. Electronically Signed: Ramsey Clarke MD at 3:53 EDT ,
[2024-03-29 02:21] LABS: Absolute Lymphocyte Count 1.09 X10^3/uL (0.83-4.51); Absolute Neutrophil Count 5.2 X10^3/uL (2.0-7.7); Basophil# 0.03 X10^3/uL; Basophil% 0.4 % (0-1); Eosinophil# 0.08 X10^3/uL; Eosinophils% 1.1 % (0-5); Hematocrit 36.5 % (37-47); Hemoglobin 11.9 g/dL (12.0-15.0); Lymphocyte # 1.09 X10^3/ul (0.83-4.51); Lymphocyte % 15.6 % (19-41); Mean Corp Hgb Conc 32.6 g/dL (32-36); Mean Corpuscular Volume 82.8 fL (81-99); Mean Platelet Vol. 10.3 fl (6.2-12.0); Monocyte# 0.61 X10^3/uL; Monocyte% 8.7 % (0-10); NRBC Flagged by Analyzer 0 % (0-5); Neutrophil # 5.17 X10^3/uL (2.7-7.7); Neutrophil % 73.9 % (47-70); Platelet Count 191 K/mm3 (150-450); RBC Distribution Width CV 14.1 % (11.6-14.6); RBC Distribution Width SD 42.5 fl (35.1-43.9); Red Blood Count 4.41 M/mm3 (4.2-5.4)
[2024-03-29 02:39] LABS: Anion Gap 5 (5-15); BUN 28 mg/dL (7-18); BUN/Creat Ratio 18.7 RATIO (10-20); Calcium,Total 9.6 mg/dL (8.5-10.1); Chloride 108 mmol/L (98-107); EST Glomerular Filtration Rate 35 mL/min (>60); Est Glom Filt Rate - Afr Amer 42 mL/min (>60); Estimated Creatinine Clearance 27.83 ml/min; Glucose 105 mg/dL (74-106); Potassium 3.8 mmol/L (3.5-5.1); Sodium Level 139 mmol/L (136-145)
[2024-03-29] MEDS: Ondansetron 4 MG/2 ML Vial IV (02:41)
[2024-03-29] MEDS: fentaNYL 100 MCG/2 ML Ampul 50 MCG IV (02:42)
[2024-03-29] MEDS: Ketorolac 15 MG/ML Vial IV (02:46)
[2024-03-29] MEDS: 0.9% Normal Saline (500mL Bag) 500 ML 999 ML IV (03:22)
[2024-03-29 03:38] LABS: Bacteria 0 SEEN /hpf (None Seen); Mucous, Urine 0 SEEN /hpf (<or=2+); White Blood Cells 0 SEEN /hpf (0-5)
[2024-03-29 03:39] LABS: Color, Urine Yellow (Yellow); Glucose, Dipstick Normal (Normal); Ketone-Dipstick 15 mg/dl (Negative); Leukocyte Esterase-Dipstick Negative /ul (Negative); Nitrite-Dipstick Negative (Negative); Occult Blood-Urine 50 /ul (Negative); Protein-Dipstick 30 mg/dl (Negative); Specific Gravity, Urine 1.015 (1.002-1.030); Urine Bilirubin Dipstick Negative (Negative); Urine Clarity Clear (Clear); Urine Urobilinogen Normal (Normal)
[2024-03-29 03:59] LABS: Red Blood Cells-Urine 5-10 SEEN /hpf (0-5); Squamous Epithelial Cells - UA 0-5 SEEN /hpf (5-10)
--- NOTE | 2024-03-29 04:20 | EX.ED.DYSGE1 ---
HPI History of Present Illness Chief Complaint: Flank Pain Informant: patient Narrative Narrative: Patient is a 88-year-old female with past medical history of hypertension hyperlipidemia and congestive heart failure. She was seen a few days ago secondary to abdominal/flank pain and found to have a kidney stone and UTI. She was discharged home and states she has been doing well but found that the pain medication stopped working today. She denies any fevers or chills or trauma but states secondary to the persistent pain she presents for evaluation. [facility] Medical History Alcohol use Ambulates with cane Anxiety Arthritis Back pain Cancer Depression FH: total knee replacement Former smoker High cholesterol History of edema History of stress test Hypertension Post-menopausal Shortness of breath on exertion Wears dentures Wears glasses Home Medications simvastatin 20 mg tablet 20 mg PO QHS cholesterol 10/22/13 [History Last Taken 10/21/23] timolol maleate 0.5 % eye drops 1 drp DAILY eye health 11/01/13 [History Last Taken 10/21/23] lisinopril 10 mg tablet 40 mg PO QHS blood pressure 04/10/19 [History Last Taken 10/21/23] omeprazole 20 mg capsule,delayed release 20 mg PO DAILY #30 caps 07/07/22 [Rx Last Taken 10/21/23] meloxicam 7.5 mg tablet 7.5 mg PO DAILY pain 08/29/23 [History Last Taken 10/21/23] furosemide 40 mg tablet 40 mg PO DAILY #30 tabs 10/24/23 [Rx Last Taken Unknown] metoprolol succinate 25 mg tablet,extended release 24 hr 12.5 mg (1/2 x 25 mg) PO DAILY #30 tabs 10/24/23 [Rx Last Taken Unknown] cefuroxime axetil 500 mg tablet 500 mg PO BID #14 tabs 03/25/24 [Rx Last Taken Unknown] hydrocodone-acetaminophen 5-325mg 5mg-325mg 1 tab PO Q6H PRN PRN Pain 3 days #10 TABLETS 03/25/24 [Rx Last Taken Unknown] ketorolac 10 mg tablet 10 mg PO Q6H PRN pain 5 days #20 tabs 03/29/24 [Rx Last Taken Unknown] oxycodone-acetaminophen 5 mg-325 mg tablet (Percocet) 1 tab PO Q6H PRN pain 5 days #20 tabs 03/29/24 [Rx Last Taken Unknown] tamsulosin 0.4 mg capsule (Flomax) 0.4 mg PO QHS #14 caps 03/29/24 [Rx Last Taken Unknown] Allergy/AdvReac Type Severity Reaction Status Date / Time morphine AdvReac Intermediate Inflammation Verified 03/29/24 01:31 of vein Surgical History H/O breast biopsy H/O removal of cyst History of abdominal surgery Hx of bilateral cataract extraction Hx of dilation and curettage Hx of external ear surgery Social History household members: spouse Smoking Status: Former smoker alcohol intake: current ROS ROS ED Constitutional Constitutional ED: Denies chills or fever(s) Eyes Eyes: Denies change in vision ENT ENT ED: Denies sore throat Cardiovascular Cardiovascular: Denies chest pain Respiratory/Chest Respiratory/Chest: Denies cough or dyspnea Gastrointestinal Gastrointestinal: Reports abdominal pain; Denies diarrhea, nausea or vomiting Genitourinary Genitourinary ED: Reports other Details: Positive flank pain ; Denies dysuria or hematuria Musculoskeletal Musculoskeletal: Denies back pain or myalgias Integumentary Denies rash Neurologic Neurologic: Denies headache(s) Hematologic/Lymphatic Hematologic/Lymphatic: Denies easy bleeding or easy bruising EXAM Physical Exam Const Vital Signs: 03/29/24 01:30 Temperature 98.2 F Temperature Source Temporal Pulse Rate 70 Respiratory Rate 17 Blood Pressure 230/69 H Blood Pressure Mean 122 Pulse Ox 99 Oxygen Delivery Method Room Air Positive well nourished and well developed General Appearance ED: well developed; Negative for pallor HEENT HEENT Narrative: Normocephalic atraumatic Eyes PERRL and EOMs intact bilaterally General Eye ED: Negative for scleral icterus Neck supple Resp normal respiratory effort and clear to auscultation bilaterally Cardio regular rate and regular rhythm Rate: other Other Details: Heart is regular rate and rhythm Radial and carotid pulses are equal and symmetric GI non-distended GI Narrative: Abdomen is soft and nondistended with hypoactive bowel sounds. Patient has mild/faint pain on palpation in the right lower quadrant. No voluntary guarding or rigidity. No pulsatile mass or fluid wave. Negative [place] sign. Auscultation: hypoactive bowel sounds Palpation: soft Back/Spine Back/Spine Narrative: Positive right CVA pain noted Extremity normal to inspection Neuro oriented x3, CN's II-XII intact bilaterally and no sensory deficits noted Sensorium / Orientation: alert Motor Exam: strength 5/5 throughout Psych mental status grossly normal Skin no rashes or lesions noted and no wounds Skin Narrative: No overlying soft tissue skin changes to suggest trauma or infection General Skin Exam: Negative for jaundice or pallor MDM MDM MDM Narrative Medical decision making narrative: Patient presented to the ER hypertensive but otherwise with stable vitals. She reports pain along the right flank and abdomen without trauma and denies any dysuria or bouts of nausea/vomiting. Chart review reveals she was recently seen for kidney stone on the same side as well as UTI. There was concern she could have developed acute kidney injury or urosepsis based on her worsening pain and therefore repeat laboratory studies and CT scan were obtained. Labs showed overall stable kidney function with her creatinine progressing from 1.26-1.5 but this changes not sufficient to warrant acute kidney injury. Urine sample went from +4 bacteria down to 0 indicating the antibiotic is appropriate. CT scan confirms stone in the distal right ureter roughly similar to the previous image. After hydration as well as treatment with Toradol and fentanyl patient had resolution of pain. Therefore at this time as she is not uroseptic does not have acute kidney injury and her pain has been resolved/controlled I do not feel there is need for admission or transfer and she is otherwise safe for discharge History & Record Review Discussion w/independent historian: Patient Lab Data Attestation: I reviewed the patient's lab results. Labs: Laboratory Results - last 24 hr 03/29/24 03/29/24 02:15 03:34 WBC 7.0 RBC 4.41 Hgb 11.9 L Hct 36.5 L MCV 82.8 MCH 27.0 MCHC 32.6 RDW Std Deviation 42.5 RDW Coeff of [place] 14.1 Plt Count 191 MPV 10.3 Immature Gran % (Auto) 0.300 Neut % (Auto) 73.9 H Lymph % (Auto) 15.6 L [place] % (Auto) 8.7 Eos % (Auto) 1.1 Baso % (Auto) 0.4 Absolute Neuts (auto) 5.2 Absolute Lymphs (auto) 1.09 Nucleated RBC % 0 Sodium 139 Potassium 3.8 Chloride 108 H Carbon Dioxide 26.0 Anion Gap 5 BUN 28 H Creatinine 1.50 H Estim Creat Clear Calc 27.83 Est GFR (MDRD) Af Amer 42 L Est GFR (MDRD) Non-Af 35 L BUN/Creatinine Ratio 18.7 Glucose 105 Calcium 9.6 Urine Color Yellow Urine Clarity Clear Urine pH 6.0 Ur Specific [place] 1.015 Urine Protein 30 H Urine Glucose (UA) Normal Urine Ketones 15 H Urine Occult Blood 50 H Urine Nitrite Negative Urine Bilirubin Negative Urine Urobilinogen Normal Ur Leukocyte Esterase Negative Urine RBC 5-10 SEEN Urine WBC 0 SEEN Ur Squamous Epith Cells 0-5 SEEN Urine Bacteria 0 SEEN Urine Mucus 0 SEEN Radiography Diagnostic Testing: Clinical Impression(s) from Imaging Studies Abdomen/Pelvis CT 03/29/24 02:03 IMPRESSION: Mild right hydroureteronephrosis which is similar to prior. Distal right ureteral calculus noted. Cholelithiasis. Electronically Signed: Ramsey Clarke MD at 3:53 EDT Reading Location ID and State: [address] [place] [address] Tel , Service support , Discharge Plan Triage Chief Complaint: Flank Pain ED Provider: Nitin Astorga Dx/Rx/DC Orders Clinical Impression: Renal colic, Ureterolithiasis, Hyperlipidemia, Hypertension Instructions: ED Kidney Stone with Pain Prescriptions: New oxycodone-acetaminophen [Percocet] 5-325 mg tablet 1 tab PO Q6H PRN (Reason: pain) 5 Days Qty: 20 0RF tamsulosin [Flomax] 0.4 mg capsule 0.4 mg PO QHS Qty: 14 0RF ketorolac 10 mg tablet 10 mg PO Q6H PRN (Reason: pain) 5 Days Qty: 20 0RF No Action meloxicam 7.5 mg tablet 7.5 mg PO DAILY simvastatin 20 MG tablet 20 mg PO QHS Patient Comments: CHOLESTEROL LOWERING timolol maleate 1 DROP drops 1 drp Each Eye DAILY Patient Comments: GLAUCOMA lisinopril 10 MG tablet 40 mg PO QHS furosemide 40 mg tablet 40 mg PO DAILY Qty: 30 2RF metoprolol succinate 25 mg Tablet Extended Release 24 Hr 12.5 mg PO DAILY Qty: 30 1RF hydrocodone-acetaminophen 5-325 mg tablet 1 tab PO Q6H PRN PRN (Reason: Pain) 3 Days Qty: 10 0RF cefuroxime axetil 500 mg tablet 500 mg PO BID Qty: 14 0RF omeprazole 20 mg capsule,delayed release(DR/EC) 20 mg PO DAILY Qty: 30 2RF Primary Care Provider: Edis Harding Referrals: Edis Harding MD [Primary Care Provider] - Hilda Strickland MD [Med Staff - Active Staff] - Activity Restrictions/Additional Instructions: Stop taking the [place]/hydrocodone and begin using the Percocet for stronger pain relief. Stop your daily meloxicam/Mobic and begin taking Toradol/ketorolac with the Percocet for synergistic pain relief/control. Continue your antibiotics as it is resolving the urinary tract infection and follow-up with urology for repeat evaluation. If you develop a fever over 100.4 have worsening pain despite the new medications or any further concerns please return to the ER for repeat evaluation Disposition Disposition: Home, Self Care
[2024-03-29 04:45] VITALS: BP 157/53; PULSE 70; RESP 14; TEMP 37; O2SAT 98
== END 2024-03-29 04:46 | disposition home or self-care (01) ==
PROVIDERS: Emergency Provider Emergency Medicine; PCP Family Medicine; Visit Provider Emergency Medicine
DX: N20.1 Calculus of ureter (principal); I11.0 Hypertensive heart disease with heart failure; I50.9 Heart failure, unspecified; E78.5 Hyperlipidemia, unspecified; Z79.899 Other long term (current) drug therapy; Z87.891 Personal history of nicotine dependence
CPT/HCPCS: 74176; 80048; 81001; 85025; 96361; 96374; 96375; 99282; A4216; J2405

== ENCOUNTER 2024-05-17 07:33 | Day surgery (SDC) | payer MEDICARE, SELFPAY ==
[2024-05-17] VITALS (11 sets, daily range): BP systolic 120–205; BP diastolic 53–76; PULSE 56–72; RESP 16; TEMP 36.3–37.3; O2SAT 96–100; BMI 25.3
[2024-05-17] MEDS: Lactated Ringers 1,000 ML 15 ML IV (08:36)
--- NOTE | 2024-05-17 09:06 | PRE.ANES_ITS ---
ASA Classification* ASA Classification ASA Classification: 2 Assessment & Plan Anesthesia* Anesthesia Assessment Anesthesia Assessment: Discussed sedation and/or anesthesia options, risks, benefits, and alternatives with patient/parents/legal guardian/POA. Questions invited. The patient/parents/legal guardian/POA seems to understand and agrees to proceed with anesthesia plan. Reviewed the physical assessment, medical history, allergy history and patient home medications list prior to surgery/procedure/anesthetic and documented any changes. Performed airway and anesthesia risk assessments. Anesthesia Type Anesthesia Type: General Pre-Assessment Diagnosis/Proposed Procedure Planned Operative Procedure(s): RIGHT URETEROSCOPY LASER STONE AND URETERAL STENT PLACEMENT Anesthesia History Anesthesia History - student financial services counselor: Anesthesia History - student financial services counselor Hx Hospitalization Yes: INCREASED BP X2 05/07/24 13:12 Any Problems With Anesthesia No 05/07/24 13:12 Cholinesterase deficiency No 05/07/24 13:12 You/Your Family Experience No: ADOPTED 05/07/24 13:12 fever (hyperthermia) with Relationship Recent Exposure to Contagious No 07/07/22 08:24 Disease Does patient have nerve No 05/07/24 13:12 stimulator Patient instructed to have device shut off --Does patient have Pacemaker No 05/17/24 08:16 or ICD? When Was Last Pacemaker Check QUESTION #4 FULL TEXT: You/Your Family Experience fever (hyperthermia) with Anesthesia Last Oral Intake Last Oral intake: Last Oral Intake NPO since 21:00 05/17/24 08:16 Meds taken in AM with sips of Yes 05/17/24 08:16 water? Meds patient instructed to take am of surgery PONV PONV - student financial services counselor: PONV - student financial services counselor Female Yes 05/07/24 13:12 HX of Motion Sickness No 05/07/24 13:12 HX of N/V After Surgery No 05/07/24 13:12 Non-Smoker Yes 05/07/24 13:12 Duration of Surgery greater No 05/07/24 13:12 than 60 minutes Number of Risk Factors 2 05/07/24 13:12 PONV Score Moderate Risk 05/07/24 13:12 Height & Weight Height & Weight: Anesthesia: Height & Weight Height 5 ft 7 in 05/17/24 08:16 Weight: 73.5 kg 05/17/24 08:16 Body Mass Index (BMI) 25.3 05/17/24 08:16 Respiratory Assessment Respiratory Assessment - student financial services counselor: Respiratory Tract Infection Hx - student financial services counselor Hx Respiratory Tract Infection No 05/07/24 13:12 STOP Sleep Apnea STOP Sleep Apnea - student financial services counselor: STOP Sleep Apnea - student financial services counselor Hx Hypertension Yes: CONTROLLED WITH MED 05/07/24 13:12 Hx Sleep Apnea No 05/07/24 13:12 CPAP No 07/05/22 08:51 BIPAP No 07/05/22 08:51 Do you snore loudly (louder No 05/07/24 13:12 than talking or can be heard Do you often feel tired/ Yes 05/07/24 13:12 fatigued/ sleepy during daytime? Has anyone observed you stop No 05/07/24 13:12 breathing during sleep? STOP Results Positive 05/07/24 13:12 QUESTION #5 FULL TEXT : Do you snore loudly (louder than talking or can be heard through closed doors)? 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 Specify any problems Hx of Preganancy in last 3 No 05/07/24 13:12 Months Nurse Filling Out Transfusion DSCHRIBER 05/07/24 13:12 & Questions: Date: 05/07/24 05/07/24 13:12 Time: 13:14 05/07/24 13:12 Patient unable to answer at this time (ie. confused, unrespo /Reproduction History /Reproductive History - student financial services counselor: /Reproductive Hx- student financial services counselor Hx Now No 05/07/24 13:12 Gestational Age (in weeks): EDC: Hx Hx Para Hx Section SAB No 05/07/24 13:12 Active Medications Active Medications: Current Medications Generic Name Dose Route Start Last Admin Trade Name Janes PRN Reason Stop Dose Admin Cefazolin Sodium 2 gm/ Sodium 110 mls @ 150 mls/hr 05/17/24 09:30 Chloride IV 05/17/24 10:13 PREOP ONE Lactated Ringer's 1,000 mls @ 15 mls/hr 05/17/24 07:45 05/17/24 08:36 IV 15 mls/hr .Q48H ULICES Administration Anesthesia Focused Assessment* Temperature: 99.1 F Pulse Rate: 56 Blood Pressure: 120/58 Respiratory Rate: 16 Pulse Ox: 100 Airway Assessment Mouth opens: >3 cm Mallampati Score: II Focused Labs Anesthesia Preop lab: CBC WBC 7.0 K/mm3 (4.4-11.0) 03/29/24 02:15 RBC 4.41 M/mm3 (4.2-5.4) 03/29/24 02:15 Hgb 11.9 g/dL (12.0-15.0) L 03/29/24 02:15 Hct 36.5 % (37-47) L 03/29/24 02:15 Plt Count 191 K/mm3 (150-450) 03/29/24 02:15 CHEMISTRY Potassium 3.8 mmol/L (3.5-5.1) 03/29/24 02:15 Sodium 139 mmol/L (136-145) 03/29/24 02:15 Magnesium 2.0 mg/dL (1.6-2.6) 12/13/23 15:02 Phosphorus 2.9 mg/dL (2.5-4.9) 02/19/24 15:03 BUN 28 mg/dL (7-18) H 03/29/24 02:15 Creatinine 1.50 mg/dL (0.55-1.02) H 03/29/24 02:15 Glucose 105 mg/dL (74-106) 03/29/24 02:15 TSH 0.89 uIU/mL (0.358-3.74) 02/19/24 15:03 COAG PT 13.3 SECONDS (11.9-14.4) 08/31/12 18:34 Review of Systems (Anesthesia) ROS Narrative System reviewed and no additional complaints, except as documented. [facility] Medical History Loss of hearing Vaginitis Discoloration of skin Bladder disease Restless legs Migraine headache Difficulty swallowing Vomiting Leg cramps History of pain when walking History of echocardiogram Wears dentures Wears glasses Post-menopausal Cancer Depression Anxiety Alcohol use Ambulates with cane Arthritis High cholesterol Back pain Former smoker History of edema History of stress test FH: total knee replacement Hypertension Home Medications ?Medication ?Instructions ?Recorded ?Last Taken ?Type simvastatin 20 mg tablet 20 mg PO QHS cholesterol 10/22/13 10/21/23 History timolol maleate 0.5 % eye drops 1 drp DAILY eye health 11/01/13 10/21/23 History lisinopril 10 mg tablet 40 mg PO QHS blood pressure 04/10/19 05/15/24 History metoprolol succinate 25 mg 12.5 mg (1/2 x 25 mg) PO DAILY #30 10/24/23 05/16/24 Rx tablet,extended release 24 hr tabs oxycodone-acetaminophen 5 mg-325 1 tab PO Q6H PRN pain 5 days #20 03/29/24 Unknown Rx mg tablet (Percocet) tabs furosemide 40 mg tablet 40 mg PO DAILY PRN PRN edema 05/07/24 Unknown History ketorolac 10 mg tablet 10 mg PO Q6H PRN PRN pain 05/07/24 Unknown History amlodipine 5 mg tablet 5 mg PO DAILY 05/17/24 05/16/24 History Allergy/AdvReac Type Severity Reaction Status Date / Time morphine AdvReac Intermediate Inflammation Verified 05/17/24 08:04 of vein Surgical History Hx of myomectomy Hx of colonoscopy Hx of external ear surgery Hx of bilateral cataract extraction Hx of dilation and curettage H/O removal of cyst H/O breast biopsy History of abdominal surgery Social History household members: spouse Smoking Status: Former smoker alcohol intake: current
--- NOTE | 2024-05-17 09:14 | HP.PCM_ITS ---
[facility] - [facility] Date of Service: 05/17/24 Chief Complaint: Right ureteral calculi [facility] Narrative ZACKARY HAMILTON, is a 88 F who presents to treat several stones in the distal right ureter with ureteroscopy and laser lithotripsy likely will need a stent afterwards. She understands is possible she need may need more than 1 procedure it is possible that the stones cannot be lasered today discussed the risk of the procedure bleeding infection failure to get the stones needing multiple procedures she also understands we will need a stent afterwards which can cause discomfort. She is given prescription for antibiotics pain medicine and follow- up next week to remove the stent after his procedure. [facility] Medical History Loss of hearing Vaginitis Discoloration of skin Bladder disease Restless legs Migraine headache Difficulty swallowing Vomiting Leg cramps History of pain when walking History of echocardiogram Wears dentures Wears glasses Post-menopausal Cancer Depression Anxiety Alcohol use Ambulates with cane Arthritis High cholesterol Back pain Former smoker History of edema History of stress test FH: total knee replacement Hypertension Home Medications ?Medication ?Instructions ?Recorded ?Last Taken ?Type simvastatin 20 mg tablet 20 mg PO QHS cholesterol 10/22/13 10/21/23 History timolol maleate 0.5 % eye drops 1 drp DAILY eye health 11/01/13 10/21/23 History lisinopril 10 mg tablet 40 mg PO QHS blood pressure 04/10/19 05/15/24 History metoprolol succinate 25 mg 12.5 mg (1/2 x 25 mg) PO DAILY #30 10/24/23 05/16/24 Rx tablet,extended release 24 hr tabs oxycodone-acetaminophen 5 mg-325 1 tab PO Q6H PRN pain 5 days #20 03/29/24 Unknown Rx mg tablet (Percocet) tabs furosemide 40 mg tablet 40 mg PO DAILY PRN PRN edema 05/07/24 Unknown History ketorolac 10 mg tablet 10 mg PO Q6H PRN PRN pain 05/07/24 Unknown History amlodipine 5 mg tablet 5 mg PO DAILY 05/17/24 05/16/24 History ciprofloxacin HCl 500 mg tablet 500 mg PO BID #6 tabs 05/17/24 Unknown Rx (Cipro) ibuprofen 400 mg tablet 400 mg PO Q6H PRN fever or pain 05/17/24 Unknown Rx #20 tabs Allergy/AdvReac Type Severity Reaction Status Date / Time morphine AdvReac Intermediate Inflammation Verified 05/17/24 08:04 of vein Surgical History Hx of myomectomy Hx of colonoscopy Hx of external ear surgery Hx of bilateral cataract extraction Hx of dilation and curettage H/O removal of cyst H/O breast biopsy History of abdominal surgery Social History household members: spouse Smoking Status: Former smoker alcohol intake: current Vital Signs Vital Signs Vital Signs: 05/17/24 08:16 05/17/24 08:16 05/17/24 09:06 Temperature 99.1 F 99.1 F Temperature Source Temporal Pulse Rate 56 L 56 L Respiratory Rate 16 16 Respiratory Pattern Normal Blood Pressure 120/58 L 120/58 L Blood Pressure Mean 78 Blood Pressure Source Monitor Blood Pressure Position Semi-Fowlers Blood Pressure Location Right Arm Pulse Ox 100 100 Oxygen Delivery Method Room Air Weight Weight: 73.5 kg Body Mass Index (BMI) 25.3 Results Lab / Micro Data Micro: Microbiology 05/15/24 15:56 Urine, Clean Catch Urine Culture - Final Escherichia coli Enterococcus faecalis
--- NOTE | 2024-05-17 09:15 | PCM.DC ---
Discharge Instructions Diet Discharge Diet: No restrictions Activity Discharge Activity: Return to Normal Activity and May Not Drive (while taking narcotic pain medications.) Dressing / Incision Call your doctor if you observe: Fever of 101 or Higher Follow Up Care Please Follow Up With: Jordan Milner MD When: Call [phone] for an appointment Test Results: Test results from this visit will be discussed in further detail at your follow-up appointment, if applicable. Discharge Plan Admission Primary Reason for Your Visit: laser stone and stent Attending Provider: Jordan Milner Primary Care Provider: Edis Harding Instructions Print Language: Slovak Discharge Orders/Prescriptions Prescriptions: New ciprofloxacin HCl [Cipro] 500 mg tablet 500 mg PO BID Qty: 6 0RF ibuprofen 400 mg tablet 400 mg PO Q6H PRN (Reason: fever or pain) Qty: 20 0RF Continued simvastatin 20 MG tablet 20 mg PO QHS Patient Comments: CHOLESTEROL LOWERING timolol maleate 1 DROP drops 1 drp Each Eye DAILY Patient Comments: GLAUCOMA lisinopril 10 MG tablet 40 mg PO QHS metoprolol succinate 25 mg Tablet Extended Release 24 Hr 12.5 mg PO DAILY Qty: 30 1RF furosemide 40 mg tablet 40 mg PO DAILY PRN PRN (Reason: edema) ketorolac 10 mg tablet 10 mg PO Q6H PRN PRN (Reason: pain) amlodipine 5 mg tablet 5 mg PO DAILY oxycodone-acetaminophen [Percocet] 5-325 mg tablet 1 tab PO Q6H PRN (Reason: pain) 5 Days Qty: 20 0RF Referrals / Follow Up: Edis Harding MD [Primary Care Provider] - Jordan Milner MD [Med Staff - Active Staff] - Disposition Disposition (needs filled in before D/C Order can be placed): Home, Self Care
[2024-05-17] MEDS: Cefazolin 2 GM in 0.9% Normal Saline (100mL Bag) 100 ML IV (09:18)
--- NOTE | 2024-05-17 09:46 | OP.PCM_ITS ---
Report of Operation Date of Procedure: 05/17/24 Pre-Operative Diagnosis: Right ureteral calculi x 2, 8 mm and 6 mm in size Post-Operative Diagnosis: No stone seen on ureteroscopy Surgery/Procedure Performed:: Right ureteroscopy, cystoscopy Description of Surgical Findings:: 88-year-old female I saw in the office for follow-up after her CAT scan was done that demonstrated right hydronephrosis and several stones in her distal right ureter he is a fairly large stones 8 mm and 6 mm in size I looked at the CAT scan myself and agreed that she had these large stones and she had hydronephrosis of the right side. She had no pain when the stones were diagnosed. So today I saw her in the preoperative area we talked about the risk and benefits of the procedure the risk of infection bleeding failure to get the stones also possible that we do the procedure and the stones are gone or have passed or dissolved. Patient was taken back to the operating room at a smooth induction of anesthesia she was placed in dorsolithotomy position went into the bladder with a 21 Egyptian rigid cystourethroscope identified the right ureteral orifice I put a wire up the right ureteral orifice and then over the wire went in with a semirigid ureteroscope was able to go into the ureter quite easily worked my way all the way up a very tortuous ureter all the way to the renal pelvis no stone was encountered I then left the wire in place and went over with the flexible ureteroscope and then pulled out the wire and then inspected upper pole midpole lower pole the kidney on the right side no stone seen worked my way down the ureter no stone along the course of the ureter therefore ureteroscope was removed the bladder was drained no stent was placed the patient will follow-up with me as necessary no stone seen on ureteroscopy she must of passed a stone or dissolved. Surgeon: Jordan Milner Type of Anesthesia: General Drains: none Estimated Blood Loss (mL): 0 Admit VTE Documentation VTE Present on Admission: No VTE Mechan Device Prophylaxis: SCD's VTE Pharm Prophylaxis ordered?: No
--- NOTE | 2024-05-17 09:57 | PCM.POST.ANE ---
Anesthesia: Postop Eval I Current Vital Signs Temperature: 97.6 F Pulse Rate: 68 Blood Pressure: 198/68 Respiratory Rate: 16 Pulse Ox: 97 Oxygen Delivery Method: Room Air Assessment Airway patent: Yes Spontaneous unlabored respirations: Yes Mental status: Awake and Calm nausea: No Vomiting: No Anesthesia Complication: No Fluid Hydration Crystalloid volume administer (ml): 500 Total IV fluid infused: 500 Progress Note Anesthesia document: Postop Eval 1 completed: Yes
[2024-05-17] MEDS: Ketorolac 15 MG/ML Vial IV (10:33)
[2024-05-17] MEDS: Ketorolac 30 MG/ML Syringe 15 MG IV (11:11)
--- NOTE | 2024-05-17 15:13 | POSTOPAN2_ITS ---
Anesthesia Postop Eval I Sum Postop Eval Completion status Anesthesia document: Postop Eval 1 completed: Yes Anesthesia Postop Eval I Summary Anesthesia Postop Eval I Summary: Anesthesia Postop Eval I: Assessment Summary Airway patent Yes 05/17/24 09:58 CARE DIRECTOR [email or web address] Spontaneous unlabored Yes 05/17/24 09:58 CARE DIRECTOR RN.MDOT respirations Mental status Awake,Calm 05/17/24 09:58 CARE DIRECTOR RN.MDOT nausea No 05/17/24 09:58 CARE DIRECTOR RN.MDOT Vomiting No 05/17/24 09:58 CARE DIRECTOR RN.MDOT Anesthesia Postop Eval I: Fluid Summary Crystalloid volume administer 500 05/17/24 09:58 CARE DIRECTOR RN.MDOT (ml) Colloids volume administered ( ml) Blood Product volume administered (ml) Total IV fluid infused 500 05/17/24 09:58 CARE DIRECTOR RN.MDOT Anesthesia Postop Eval I: Summary Notes Anesthesia Complication No 05/17/24 09:58 CARE DIRECTOR RN.MDOT Anesthesia Complication Comment: Post-operative progress note Anesthesia: Postop Eval II Evaluation Mental status: Awake and Calm Pain Level: 0 nausea: No Vomiting: No Complications Anesthesia Complication: No
--- NOTE | 2024-05-17 15:13 | PCM.POSTANE2 ---
Anesthesia Postop Eval I Sum Postop Eval Completion status Anesthesia document: Postop Eval 1 completed: Yes Anesthesia Postop Eval I Summary Anesthesia Postop Eval I Summary: Anesthesia Postop Eval I: Assessment Summary Airway patent Yes 05/17/24 09:58 MANAGER [email or web address] Spontaneous unlabored Yes 05/17/24 09:58 MANAGER KNOWLEDGE.MDOT respirations Mental status Awake,Calm 05/17/24 09:58 MANAGER [email or web address] nausea No 05/17/24 09:58 MANAGER KNOWLEDGE.MDOT Vomiting No 05/17/24 09:58 MANAGER KNOWLEDGE.MDOT Anesthesia Postop Eval I: Fluid Summary Crystalloid volume administer 500 05/17/24 09:58 MANAGER KNOWLEDGE.MDOT (ml) Colloids volume administered ( ml) Blood Product volume administered (ml) Total IV fluid infused 500 05/17/24 09:58 MANAGER KNOWLEDGE.MDOT Anesthesia Postop Eval I: Summary Notes Anesthesia Complication No 05/17/24 09:58 MANAGER KNOWLEDGE.MDOT Anesthesia Complication Comment: Post-operative progress note Anesthesia: Postop Eval II Evaluation Mental status: Awake and Calm Pain Level: 0 nausea: No Vomiting: No Complications Anesthesia Complication: No
== END 2024-05-17 12:28 | disposition home or self-care (01) ==
LOC: SDC 07:35 → AC 07:35
PROVIDERS: PCP Family Medicine; Referring Provider Urology; Visit Provider Urology
PROC: 0TJ98ZZ Inspection of Ureter, Via Natural or Artificial Opening Endoscopic (ICD-10-PCS; CPT 52352; principal; 2024-05-17 09:20)
DX: N20.1 Calculus of ureter (principal); E78.00 Pure hypercholesterolemia, unspecified; I10 Essential (primary) hypertension; Z79.899 Other long term (current) drug therapy; Z87.891 Personal history of nicotine dependence
CPT/HCPCS: 52352; 87077; 87086; 87088; 87186; J7120; C1769; J2405

== ENCOUNTER → 2024-06-10 | Outpatient (CLI) | payer MEDICARE, SELFPAY ==
[2024-06-10 17:17] LABS: Anion Gap 7 (5-15); BUN 25 mg/dL (7-18); BUN/Creat Ratio 29.1 RATIO (10-20); Calcium,Total 9.8 mg/dL (8.5-10.1); Chloride 109 mmol/L (98-107); Creatinine, Serum 0.86 mg/dL (0.55-1.02); EST Glomerular Filtration Rate 66 mL/min (>60); Est Glom Filt Rate - Afr Amer 80 mL/min (>60); Glucose 112 mg/dL (74-106); Sodium Level 142 mmol/L (136-145)
== END | disposition home or self-care (01) ==
LOC: LAB 16:34
PROVIDERS: PCP Family Medicine; Referring Provider Family Medicine; Visit Provider Family Medicine
DX: N18.30 Chronic kidney disease, stage 3 unspecified (principal)
CPT/HCPCS: 36415; 80048

== ENCOUNTER 2024-07-11 21:56 | Emergency (ER) | payer MEDICARE, SELFPAY ==
[2024-07-11 21:57] VITALS: BP 132/58; PULSE 85; RESP 16; TEMP 36.3; O2SAT 97
[2024-07-11 22:15] VITALS: BMI 24.7
--- NOTE | 2024-07-11 22:23 | CT_ITS ---
EXAM: CT HEAD WITHOUT INTRAVENOUS CONTRAST CLINICAL INDICATION: headache TECHNIQUE: Multiple axial images were obtained of the head without intravenous contrast. This CT exam was performed using one or more of the following dose reduction techniques: automated exposure control, adjustment of the mA and/or kV according to patient size, and/or use of iterative reconstruction technique. RADIATION DOSE: CTDIvol = 44.99 mGy, DLP = 880.47 mGy-cm COMPARISON: Head CT 04/22/2006 FINDINGS: BRAIN AND EXTRA-AXIAL SPACES: Unremarkable. No intra- or extra-axial hemorrhage. No evidence of acute infarct. No intracranial mass or mass effect. There is preservation of the miranda/white matter interface. Posterior fossa structures are unremarkable. Ventricles are appropriate for age. No hydrocephalus. Basal cisterns are patent. BONES/JOINTS: Unremarkable. No discrete lytic or blastic abnormalities. SINUSES: Unremarkable as visualized. Clear. MASTOID AIR CELLS: Unremarkable. Clear. ORBITS: Visualized globes, extraocular muscles, optic nerves and retrobulbar fat appear unremarkable. CT/Brain/Head without Contrast IMPRESSION: Negative head/brain CT without intravenous contrast. Electronically Signed: Hector Venegas MD at 23:43 EDT ,
--- NOTE | 2024-07-11 22:23 | EX.ED.DYSGE1 ---
HPI History of Present Illness Chief Complaint: Nausea/Vomiting Informant: patient Narrative Narrative: 88-year-old female presenting to the emergency room with vomiting and headache. Patient states that approximately 0400 hrs. she developed vomiting. She states that she has a history of episodes of vomiting this feels different. Typically she can vomit and feel better for couple hours but this time whenever she vomits she does not feel better. After several hours went by the patient developed a frontal headache as well as occipital headache. She denies any neurologic deficits. She denies any diarrhea in fact she notes a normal bowel movement this morning. She does not feel bloated or distended. No reported fevers. [facility] Medical History Kidney stones Loss of hearing Vaginitis Discoloration of skin Bladder disease Restless legs Migraine headache Difficulty swallowing Vomiting Leg cramps History of pain when walking History of echocardiogram Wears dentures Wears glasses Post-menopausal Cancer Depression Anxiety Alcohol use Ambulates with cane Arthritis High cholesterol Back pain Former smoker History of edema History of stress test FH: total knee replacement Hypertension Home Medications ?Medication ?Instructions ?Recorded ?Last Taken ?Type simvastatin 20 mg tablet 20 mg PO QHS cholesterol 10/22/13 10/21/23 History timolol maleate 0.5 % eye drops 1 drp DAILY eye health 11/01/13 10/21/23 History lisinopril 10 mg tablet 40 mg PO QHS blood pressure 04/10/19 05/15/24 History metoprolol succinate 25 mg 12.5 mg (1/2 x 25 mg) PO DAILY #30 10/24/23 05/16/24 Rx tablet,extended release 24 hr tabs oxycodone-acetaminophen 5 mg-325 1 tab PO Q6H PRN pain 5 days #20 03/29/24 Unknown Rx mg tablet (Percocet) tabs furosemide 40 mg tablet 40 mg PO DAILY PRN PRN edema 05/07/24 Unknown History ketorolac 10 mg tablet 10 mg PO Q6H PRN PRN pain 05/07/24 Unknown History amlodipine 5 mg tablet 5 mg PO DAILY 05/17/24 05/16/24 History ciprofloxacin HCl 500 mg tablet 500 mg PO BID #6 tabs 05/17/24 Unknown Rx (Cipro) ibuprofen 400 mg tablet 400 mg PO Q6H PRN fever or pain 05/17/24 Unknown Rx #20 tabs ondansetron 4 mg disintegrating 4 mg PO Q6H PRN PRN Nausea #15 tabs 07/11/24 Unknown Rx tablet Allergy/AdvReac Type Severity Reaction Status Date / Time morphine AdvReac Intermediate Inflammation Verified 07/11/24 21:57 of vein Surgical History Hx of myomectomy Hx of colonoscopy Hx of external ear surgery Hx of bilateral cataract extraction Hx of dilation and curettage H/O removal of cyst H/O breast biopsy History of abdominal surgery Social History household members: spouse Smoking Status: Former smoker alcohol intake: current ROS ROS ED Constitutional Constitutional ED: Denies chills, fever(s) or weight loss Eyes Eyes: Denies change in vision or diplopia ENT ENT ED: Denies ear pain, rhinorrhea or sore throat Cardiovascular Cardiovascular: Denies chest pain, orthopnea, palpitations or racing heartbeat Respiratory/Chest Respiratory/Chest: Denies cough, dyspnea or orthopnea Gastrointestinal Gastrointestinal: Reports nausea and vomiting; Denies abdominal pain or diarrhea Genitourinary Genitourinary ED: Denies dysuria, hematuria or urinary frequency Musculoskeletal Musculoskeletal: Denies arthralgias or myalgias Integumentary Denies abscess or rash Neurologic Neurologic: Reports headache(s); Denies paresthesias or weakness Psychiatric Psychiatric: Denies anxiety, depression, suicidal ideation or suicidal thoughts Endocrine Endocrinology: Denies polydipsia, polyphagia or polyuria Allergic/Immunologic Allergic/Immunologic ED: Denies mouth swelling, tongue swelling or urticaria EXAM Physical Exam Const Vital Signs: 07/11/24 21:57 Temperature 97.4 F L Temperature Source Temporal Pulse Rate 85 Respiratory Rate 16 Blood Pressure 132/58 H Blood Pressure Mean 82 Pulse Ox 97 Oxygen Delivery Method Room Air Positive well nourished and well developed General Appearance ED: well developed HEENT Reports normocephalic, head/scalp atraumatic and moist mucous membranes Eyes PERRL and EOMs intact bilaterally Neck no lymphadenopathy, supple and no JVD Resp normal respiratory effort and clear to auscultation bilaterally Cardio regular rate, regular rhythm and no murmurs GI normal to inspection, nondistended, normoactive bowel sounds and non-tender Palpation: soft Back/Spine no CVA tenderness and normal ROM Extremity normal to inspection General Extremety ED: Negative for edema General Extremity: Negative for edema Neuro oriented x3 and CN's II-XII intact bilaterally Sensorium / Orientation: alert Motor Exam: strength 5/5 throughout Psych mental status grossly normal Mood & Affect: Negative for depressed or tearful Skin no rashes or lesions noted and no wounds MDM MDM MDM Narrative Medical decision making narrative: Differential diagnosis includes but not limited to bowel obstruction pancreatitis biliary colic dehydration gastritis gastroenteritis viral syndrome intracranial hemorrhage intracranial mass electrolyte abnormalities IV established patient received IV fluids and Zofran. Head CT was obtained which demonstrates no intracranial hemorrhage or mass. White count 7.1 hemoglobin 14.4. BMP with a glucose of 134 creatinine 0.79 BUN of 22 and a gap of 7 CO2 of 26 normal liver enzymes and lipase. Patient received Toradol and Tylenol for headache. She is feeling significantly better on repeat examination stating that the nausea is gone. There is no pharmacy availability tonight. I will give her Zofran ODT before she goes I will write a prescription for same as she cannot find her Zofran at home. History & Record Review Discussion w/independent historian: Patient Additional record(s) reviewed:: Prior ED visit and Prior labs Lab Data Attestation: I reviewed the patient's lab results. Labs: Laboratory Results - last 24 hr 07/11/24 22:35 WBC 7.1 RBC 5.12 Hgb 14.4 Hct 43.5 MCV 85.0 MCH 28.1 MCHC 33.1 RDW Std Deviation 45.0 H RDW Coeff of Destin 14.6 Plt Count 281 MPV 9.5 Immature Gran % (Auto) 0.300 Neut % (Auto) 84.7 H Lymph % (Auto) 9.3 L Braxton % (Auto) 5.6 Eos % (Auto) 0.0 Baso % (Auto) 0.1 Absolute Neuts (auto) 6.0 Absolute Lymphs (auto) 0.66 L Nucleated RBC % 0 Sodium 139 Potassium 3.8 Chloride 106 Carbon Dioxide 26.0 Anion Gap 7 BUN 22 H Creatinine 0.79 Estim Creat Clear Calc 48.18 Est GFR (MDRD) Af Amer 88 Est GFR (MDRD) Non-Af 73 BUN/Creatinine Ratio 27.7 H Glucose 134 H Calcium 10.1 Total Bilirubin 0.60 Direct Bilirubin 0.20 AST 16 ALT 13 Alkaline Phosphatase 76 Total Protein 7.0 Albumin 3.7 Globulin 3.3 Lipase 39 Radiography Diagnostic Testing: Clinical Impression(s) from Imaging Studies Brain CT 07/11/24 22:23 IMPRESSION: Negative head/brain CT without intravenous contrast. Electronically Signed: Hector Venegas MD at 23:43 EDT , Discharge Plan Triage Chief Complaint: Nausea/Vomiting ED Provider: Ron Fairbanks Dx/Rx/DC Orders Clinical Impression: Vomiting in adult, Headache Instructions: ED Vomiting (Adult) Prescriptions: New ondansetron 4 mg tablet,disintegrating 4 mg PO Q6H PRN PRN (Reason: Nausea) Qty: 15 0RF No Action simvastatin 20 MG tablet 20 mg PO QHS Patient Comments: CHOLESTEROL LOWERING timolol maleate 1 DROP drops 1 drp Each Eye DAILY Patient Comments: GLAUCOMA lisinopril 10 MG tablet 40 mg PO QHS metoprolol succinate 25 mg Tablet Extended Release 24 Hr 12.5 mg PO DAILY Qty: 30 1RF furosemide 40 mg tablet 40 mg PO DAILY PRN PRN (Reason: edema) ketorolac 10 mg tablet 10 mg PO Q6H PRN PRN (Reason: pain) amlodipine 5 mg tablet 5 mg PO DAILY ciprofloxacin HCl [Cipro] 500 mg tablet 500 mg PO BID Qty: 6 0RF ibuprofen 400 mg tablet 400 mg PO Q6H PRN (Reason: fever or pain) Qty: 20 0RF oxycodone-acetaminophen [Percocet] 5-325 mg tablet 1 tab PO Q6H PRN (Reason: pain) 5 Days Qty: 20 0RF Primary Care Provider: Edis Harding Referrals: Edis Harding MD [Primary Care Provider] - 3-5 Days if not improving Print Language: Argentine
[2024-07-11 22:41] LABS: Absolute Lymphocyte Count 0.66 X10^3/uL (0.83-4.51); Basophil# 0.01 X10^3/uL; Basophil% 0.1 % (0-1); Hematocrit 43.5 % (37-47); Hemoglobin 14.4 g/dL (12.0-15.0); Lymphocyte # 0.66 X10^3/ul (0.83-4.51); Lymphocyte % 9.3 % (19-41); Mean Corp Hgb Conc 33.1 g/dL (32-36); Mean Corpuscular Hgb 28.1 pg (27.0-32.0); Mean Platelet Vol. 9.5 fl (6.2-12.0); Monocyte% 5.6 % (0-10); NRBC Flagged by Analyzer 0 % (0-5); Neutrophil % 84.7 % (47-70); Platelet Count 281 K/mm3 (150-450); RBC Distribution Width CV 14.6 % (11.6-14.6); Red Blood Count 5.12 M/mm3 (4.2-5.4); White Blood Count 7.1 K/mm3 (4.4-11.0)
[2024-07-11 22:57] LABS: AST(SGOT) 16 U/L (15-37); Alanine Aminotransfer ALT/SGPT 13 U/L (13-56); Albumin, Serum 3.7 g/dL (3.2-5.0); Alkaline Phosphatase 76 U/L (45-117); Anion Gap 7 (5-15); BUN 22 mg/dL (7-18); BUN/Creat Ratio 27.7 RATIO (10-20); Calcium,Total 10.1 mg/dL (8.5-10.1); Chloride 106 mmol/L (98-107); Creatinine, Serum 0.79 mg/dL (0.55-1.02); EST Glomerular Filtration Rate 73 mL/min (>60); Est Glom Filt Rate - Afr Amer 88 mL/min (>60); Estimated Creatinine Clearance 48.18 ml/min; Globulin 3.3 g/dL (2.2-4.2); Glucose 134 mg/dL (74-106); Lipase 39 U/L (13-75); Potassium 3.8 mmol/L (3.5-5.1); Sodium Level 139 mmol/L (136-145)
[2024-07-11 23:56] VITALS: PULSE 71; RESP 16; O2SAT 100
[2024-07-12 00:03] VITALS: BP 167/52; PULSE 74; RESP 15; TEMP 36.3; O2SAT 98
== END 2024-07-12 00:05 | disposition home or self-care (01) ==
LOC: ED 22:22
PROVIDERS: Emergency Provider Emergency Medicine; PCP Family Medicine; Visit Provider Emergency Medicine
DX: R11.2 Nausea with vomiting, unspecified (principal); R51.9 Headache, unspecified; I10 Essential (primary) hypertension; E78.00 Pure hypercholesterolemia, unspecified; Z87.891 Personal history of nicotine dependence; Z96.659 Presence of unspecified artificial knee joint; Z79.899 Other long term (current) drug therapy; Z98.41 Cataract extraction status, right eye; Z98.42 Cataract extraction status, left eye
CPT/HCPCS: 70450; 80048; 80076; 83690; 85025; 96361; 96374; 96375; 99282; J7030; A4216; J2405

== ENCOUNTER → 2024-09-26 | Outpatient (CLI) | payer MEDICARE, SELFPAY ==
--- NOTE | 2024-09-26 11:06 | US_ITS ---
HISTORY: cholelithiasis, vomiting. TECHNIQUE: Murphy scale and color doppler imaging was performed of the right upper quadrant. 101 images. COMPARISON: CT 03/29/2024. FINDINGS: LIVER: 14.9 cm in length. 2.3 x 2.5 x 2.7 cm peripherally calcified cyst in the left lobe. 4.3 x 5.1 x 5.5 cm and 2.5 x 2.9 x 3.3 cm simple cysts in the left lobe. No intrahepatic ductal dilatation. MAIN PORTAL VEIN: Patent with hepatopedal flow. COMMON BILE DUCT: 3 mm in diameter. GALLBLADDER: 2.6 shadowing gallstone. 3 mm wall thickness. No pericholecystic fluid. Sonographic De Dios sign negative. PANCREAS: Visualized proximal portion unremarkable. RIGHT KIDNEY: 11.1 cm in length with a cortical thickness of 1 cm. No hydronephrosis. 2.2 x 2.3 x 2.4 cm upper pole cyst and 1.6 x 1.8 x 1.68 cm lower pole cyst. US/Abdomen Limited IMPRESSION: Cholelithiasis with a large shadowing gallstone. Hepatic and right renal cysts. Electronically Signed: Elvie Weber MD at 12:19 EDT ,
== END | disposition home or self-care (01) ==
PROVIDERS: PCP Family Medicine; Referring Provider Family Medicine; Visit Provider Family Medicine
DX: K80.20 Calculus of gallbladder without cholecystitis without obstruction (principal); R11.10 Vomiting, unspecified
CPT/HCPCS: 76705

== ENCOUNTER → 2024-09-30 | Outpatient (CLI) | payer MEDICARE, SELFPAY ==
--- NOTE | 2024-09-30 10:15 | RAD_ITS ---
STUDY: X-RAY - ESOPHAGUS (BARIUM SWALLOW) WITH FLUOROSCOPY REASON FOR EXAM: Female, 89 years old. Dysphagia TECHNIQUE: 56 fluoroscopic view(s) of the esophagus were obtained following swallowing of barium. FLUOROSCOPY TIME (if supplied): (40 seconds) minutes/seconds. COMPARISON: None. FINDINGS: There is no demonstrated esophageal foreign body. There is no demonstrated stricture or mucosal abnormality. Normal gastroesophageal junction, without a demonstrated hiatal hernia. The patient ingested a 12 mm tablet of barium. The tablet is trapped at the gastroesophageal junction. There is atherosclerotic calcification of the aortic arch with tortuosity of the descending aorta. Normal visualized pulmonary parenchyma. There are diffuse degenerative changes of the visualized thoracic spine. RAD/Esophagus Dual Contrast IMPRESSION: The patient ingested a 12 mm tablet of barium. The tablet is trapped at the gastroesophageal junction. Endoscopic correlation recommended. Electronically Signed: Perry Dooley MD at 12:12 EST ,
== END | disposition home or self-care (01) ==
PROVIDERS: PCP Family Medicine; Referring Provider Family Medicine; Visit Provider Family Medicine
DX: R13.10 Dysphagia, unspecified (principal)
CPT/HCPCS: 74221

== ENCOUNTER → 2024-10-22 | Outpatient (CLI) | payer MEDICARE, SELFPAY ==
[2024-10-22 18:34] LABS: PTHIN 150.9 pg/mL (18.4-80.1)
[2024-10-22 18:37] LABS: Anion Gap 6 (5-15); BUN 22 mg/dL (7-18); BUN/Creat Ratio 31.3 RATIO (10-20); Calcium,Total 9.9 mg/dL (8.5-10.1); Chloride 109 mmol/L (98-107); EST Glomerular Filtration Rate 84 mL/min (>60); Est Glom Filt Rate - Afr Amer 101 mL/min (>60); Glucose 92 mg/dL (74-106); Potassium 3.7 mmol/L (3.5-5.1); Sodium Level 141 mmol/L (136-145)
== END | disposition home or self-care (01) ==
LOC: MFPLAB 15:36
PROVIDERS: PCP Family Medicine; Visit Provider Family Medicine
DX: E83.42 Hypomagnesemia (principal)
CPT/HCPCS: 36415; 80048; 82306; 83735; 83970

== ENCOUNTER → 2024-11-04 | Outpatient (CLI) | payer MEDICARE, SELFPAY ==
[2024-11-04 20:54] LABS: 24HR UR TOTAL VOLUME 300 ml
[2024-11-04 20:56] LABS: Calcium Urine pH Range 1
[2024-11-04 23:58] LABS: (24 HR) Urine Calcium 45.6 mg/24 HR (42.0-353.0); Urine Calcium (Random) 15.2 mg/dL (Not Estab.)
== END | disposition home or self-care (01) ==
LOC: MTLAB 15:30
PROVIDERS: PCP Family Medicine; Referring Provider Family Medicine; Visit Provider Family Medicine
DX: E83.52 Hypercalcemia (principal)
CPT/HCPCS: 81050; 82340

== ENCOUNTER 2024-11-07 09:23 | Day surgery (SDC) | payer MEDICARE, SELFPAY ==
--- NOTE | 2024-11-06 13:51 | PAT.ANE_ITS ---
PAT status Pat Assessment PAT Assessment: PAT Anesthesia Results to Eval 11/06/24 11:56 Pre-Assessment Diagnosis/Proposed Procedure Planned Operative Procedure(s): EGD Anesthesia History Anesthesia History - litigation attorney associate: Anesthesia History - litigation attorney associate Hx Hospitalization No 11/05/24 09:54 Any Problems With Anesthesia Yes: HARD TIME WAKING UP 11/05/24 09:54 WITH ONE OF SURGERIES, BUT NOT RECENT Cholinesterase deficiency No 11/05/24 09:54 You/Your Family Experience No 11/05/24 09:54 fever (hyperthermia) with Relationship Recent Exposure to Contagious No 07/07/22 08:24 Disease Does patient have nerve No 11/05/24 09:54 stimulator Patient instructed to have device shut off --Does patient have Pacemaker or ICD? When Was Last Pacemaker Check QUESTION #4 FULL TEXT: You/Your Family Experience fever (hyperthermia) with Anesthesia Last Oral Intake Last Oral intake: Last Oral Intake NPO since Meds taken in AM with sips of water? Meds patient instructed to take am of surgery PONV PONV - litigation attorney associate: PONV - litigation attorney associate Female Yes 11/05/24 09:54 HX of Motion Sickness No 11/05/24 09:54 HX of N/V After Surgery No 11/05/24 09:54 Non-Smoker Yes 11/05/24 09:54 Duration of Surgery greater No 11/05/24 09:54 than 60 minutes Number of Risk Factors 2 11/05/24 09:54 PONV Score Moderate Risk 11/05/24 09:54 Height & Weight Height & Weight: Anesthesia: Height & Weight Height 5 ft 7 in 10/16/24 10:02 Respiratory Assessment Respiratory Assessment - litigation attorney associate: Respiratory Tract Infection Hx - litigation attorney associate Hx Respiratory Tract Infection No 11/05/24 09:54 STOP Sleep Apnea STOP Sleep Apnea - litigation attorney associate: STOP Sleep Apnea - litigation attorney associate Hx Hypertension Yes 11/05/24 09:54 Hx Sleep Apnea No 11/05/24 09:54 CPAP No 05/17/24 09:55 BIPAP No 07/05/22 08:51 Do you snore loudly (louder No 11/05/24 09:54 than talking or can be heard Do you often feel tired/ No 11/05/24 09:54 fatigued/ sleepy during daytime? Has anyone observed you stop No 11/05/24 09:54 breathing during sleep? STOP Results Negative 11/05/24 09:54 QUESTION #5 FULL TEXT : Do you snore loudly (louder than talking or can be heard through closed doors)? Tobacco Use History Tobacco Use History - litigation attorney associate: Tobacco Use History - litigation attorney associate Tobacco Use Smoking Status Former smoker 11/05/24 09:54 Hx Tobacco Use No 11/05/24 09:54 Years Smoking Packs Smoked per Day Smoking Cessation Date was No - quit smoking greater 11/05/24 09:54 within the last 15 years than 15 years ago Hx Smoking Cessation Date 12/28/94 11/05/24 09:54 Hx Smoking Cessation No 11/05/24 09:54 Counseling Hematologic Medial History Hematologic Hx - litigation attorney associate: Hematologic Medical Hx - preparation supervisor Hx of Blood Transfusion No 11/05/24 09:54 Hx of Transfusion in last 3 No 11/05/24 09:54 Months Date of Last Transfusion (if within last 3 months) Ever experience any problems No 11/05/24 09:54 with transfusion(s)? Specify any problems Hx of Preganancy in last 3 No 11/05/24 09:54 Months Nurse Filling Out Transfusion VLEHHAMPTON 11/05/24 09:54 & Questions: Date: 11/05/24 11/05/24 09:54 Time: 10:06 11/05/24 09:54 Patient unable to answer at this time (ie. confused, unrespo /Reproduction History /Reproductive History - litigation attorney associate: /Reproductive Hx- litigation attorney associate Hx Now No 11/05/24 09:54 Gestational Age (in weeks): EDC: Hx Hx Para Hx Section SAB No 11/05/24 09:54 PFSH Medical History (Updated 11/05/24 @ 10:05 by Darshana Pereyra) Walker as ambulation aid Gout History of CHF (congestive heart failure) Cholelithiasis Kidney stones Loss of hearing Vaginitis Discoloration of skin Bladder disease Restless legs Migraine headache Difficulty swallowing Vomiting Leg cramps History of pain when walking History of echocardiogram Wears dentures Wears glasses Post-menopausal Cancer Depression Anxiety Alcohol use Ambulates with cane Arthritis High cholesterol Back pain Former smoker History of edema History of stress test FH: total knee replacement Hypertension Home Medications ?Medication ?Instructions ?Recorded ?Last Taken ?Type simvastatin 20 mg tablet 20 mg PO QHS cholesterol 10/22/13 10/21/23 History timolol maleate 0.5 % eye drops 1 drp DAILY eye health 11/01/13 10/21/23 History lisinopril 10 mg tablet 40 mg PO QHS blood pressure 04/10/19 05/15/24 History metoprolol succinate 25 mg 12.5 mg (1/2 x 25 mg) PO DAILY #30 10/24/23 05/16/24 Rx tablet,extended release 24 hr tabs furosemide 40 mg tablet 40 mg PO DAILY PRN PRN edema 05/07/24 Unknown History amlodipine 5 mg tablet 5 mg PO DAILY 05/17/24 05/16/24 History ibuprofen 400 mg tablet 400 mg PO Q6H PRN fever or pain 05/17/24 Unknown Rx #20 tabs ondansetron 4 mg disintegrating 4 mg PO Q6H PRN PRN Nausea #15 tabs 07/11/24 Unknown Rx tablet Allergy/AdvReac Type Severity Reaction Status Date / Time morphine AdvReac Intermediate Inflammation Verified 11/05/24 09:49 of vein Surgical History (Updated 11/05/24 @ 09:55 by Darshana Pereyra) History of total bilateral knee replacement Hx of myomectomy Hx of colonoscopy Hx of external ear surgery Hx of bilateral cataract extraction Hx of dilation and curettage H/O removal of cyst H/O breast biopsy History of abdominal surgery Social History household members: spouse Smoking Status: Former smoker alcohol intake: current Audit: Pertinent Findings Pertinent Findings EKG Perinent findings: 10/19 sr, occ pvc's i rbbb Echo (EF%) pertinent findings: 2022 EF 65% Recommendation Anesthesia Recommendation Anesthesia recommendation: OPTIMIZED for anesthesia
[2024-11-07] VITALS (8 sets, daily range): BP systolic 79–171; BP diastolic 44–101; PULSE 50–98; RESP 16; TEMP 36–36.3; O2SAT 98–100; BMI 24.4
--- NOTE | 2024-11-07 | GASB_PTH ---
PATIENT: ZACKARY HAMILTON LOC: [facility] U#:[id number] AGE/SX: 89/F ROOM: RE11/07/[address]: Dr. Luis Drew MD : 1935 BED: DIS: 11/07/2024 SPEC #: [id number] RECD: 11/07/24 13:24 STATUS: RICARDO DAN #: [id number] BEBE: 11/07/24 00:[address]: Luis Drew DEPT: SURGICAL PATHOLOGY RECD BY: Refugio Crowley ENTERED: 11/07/24 13:25 SP TYPE: Gastric Bx OTHR DR: Dr. Edis Harding MD Tissues: A - Gastric mucous membrane B - Gastric mucous membrane C - Gastric mucous membrane D - Gastric mucous membrane E - Esophageal mucous membrane Procedures: Special Stain Group I Surgery Specimen Level IV Alcian Blue/PAS (control) Comments: @ Specimen number changed from [id number] to [id number] @ on 11/07/24 at 1343 by HEADER OPERATION: EGD PRE-OP DIAGNOSIS: Vomiting in adult TISSUE SUBMITTED: A- Antrum biopsy, B- Gastric cardia polyp biopsy, C- GE fold polyp biopsy, D- GE junction biopsy, E- Mid esophageal plaque biopsy MICROSCOPIC DIAGNOSIS A. Antrum, biopsy: Reactive gastropathy with minimal chronic inflammation. See comment. B. Gastric cardia polyp, biopsy: Gastric mucosa with minimal chronic inflammation. Definitive polyp morphology not identified. C. Gastroesophageal fold polyp, biopsy: Fundic gland polyp. Fragments of gastric mucosa with minimal chronic inflammation. D. Gastroesophageal junction, biopsy: Polypoid squamous mucosa with focal changes suggestive of mild acute reflux esophagitis. No glandular mucosa is present for evaluation. Negative for intestinal metaplasia/ Ortiz's esophagus. Negative for dysplasia. Negative for eosinophilic esophagitis. See comment. E. Mid esophagus plaque, biopsy: Superficial fragments of squamous mucosa with changes suggestive of reactive changes. No glandular mucosa is present for evaluation. Negaitve for intestinal metaplasia/Ortiz's esophagus. Negative for dysplasia. Negative for eosinophilic esophagitis. PW/mr 11/08/2024 COMMENT A. The results of immunohistochemistry for Helicobacter pylori will be reported separately ([id number]). C,D. Alcian blue/PAS stain with matched control is used in the evaluation of the specimen showing no goblet cells and therefore no evidence of intestinal metaplasia/Ortiz's esophagus. MICROSCOPIC DESCRIPTION Slides are reviewed. GROSS DESCRIPTION A. Received in fixative is one container labeled with the patient's name and designated Antrum biopsy. The specimen consists of multiple irregular fragments of light wright soft tissue that in aggregate measure 0.9 x 0.2 x 0.1 cm. The specimen is totally submitted in one cassette. B. Received in fixative is one container labeled with the patient's name and designated Gastric cardia polyp biopsy. The specimen consists of two irregular fragments of light wright soft tissue that in aggregate measure 0.5 x 0.3 x 0.1 cm. The specimen is totally submitted in one cassette. C. Received in fixative is one container labeled with the patient's name and designated GE fold polyp biopsy. The specimen consists of one irregular fragment of light wright soft tissue that measures 0.5 x 0.5 x 0.1 cm. The specimen is totally submitted in one cassette. D. Received in fixative is one container labeled with the patient's name and designated GE junction biopsy. The specimen consists of one irregular fragment of light wright soft tissue that measures 0.3 x 0.2 x 0.1 cm. The specimen is totally submitted in one cassette. E. Received in fixative is one container labeled with the patient's name and designated Mid esophagus plaque biopsy. The specimen consists of multiple irregular fragments of light wright soft tissue that in aggregate measure 0.6 x 0.3 x 0.1 cm. The specimen is totally submitted in one cassette. SJ 11/07/2024 TC:3 CPT:79213c4,[id number]
--- NOTE | 2024-11-07 10:00 | PCM.PRE.AN2 ---
ASA Classification* ASA Classification ASA Classification: 3 Assessment & Plan Anesthesia* Anesthesia Assessment Anesthesia Assessment: Discussed sedation and/or anesthesia options, risks, benefits, and alternatives with patient/parents/legal guardian/POA. Questions invited. The patient/parents/legal guardian/POA seems to understand and agrees to proceed with anesthesia plan. Reviewed the physical assessment, medical history, allergy history and patient home medications list prior to surgery/procedure/anesthetic and documented any changes. Performed airway and anesthesia risk assessments. Anesthesia Type Anesthesia Type: MAC Anesthesia Focused Assessment* Temperature: 97 F Pulse Rate: 50 Blood Pressure: 171/54 Respiratory Rate: 16 Pulse Ox: 100 Airway Assessment Mouth opens: >3 cm Mallampati Score: II Focused Labs Anesthesia Preop lab: CBC WBC 7.1 K/mm3 (4.4-11.0) 07/11/24 22:35 RBC 5.12 M/mm3 (4.2-5.4) 07/11/24 22:35 Hgb 14.4 g/dL (12.0-15.0) 07/11/24 22:35 Hct 43.5 % (37-47) 07/11/24 22:35 Plt Count 281 K/mm3 (150-450) 07/11/24 22:35 CHEMISTRY Potassium 3.7 mmol/L (3.5-5.1) 10/22/24 15:42 Sodium 141 mmol/L (136-145) 10/22/24 15:42 Magnesium 2.0 mg/dL (1.6-2.6) 10/22/24 15:42 Phosphorus 2.9 mg/dL (2.5-4.9) 02/19/24 15:03 BUN 22 mg/dL (7-18) H 10/22/24 15:42 Creatinine 0.70 mg/dL (0.55-1.02) 10/22/24 15:42 Glucose 92 mg/dL (74-106) 10/22/24 15:42 TSH 0.89 uIU/mL (0.358-3.74) 02/19/24 15:03 COAG PT 13.3 SECONDS (11.9-14.4) 08/31/12 18:34 Pre-Assessment Diagnosis/Proposed Procedure Planned Operative Procedure(s): EGD Anesthesia History Anesthesia History - clinical quality assurance specialist: Anesthesia History - clinical quality assurance specialist Hx Hospitalization No 11/05/24 09:54 Any Problems With Anesthesia Yes: HARD TIME WAKING UP 11/05/24 09:54 WITH ONE OF SURGERIES, BUT NOT RECENT Cholinesterase deficiency No 11/05/24 09:54 You/Your Family Experience No 11/05/24 09:54 fever (hyperthermia) with Relationship Recent Exposure to Contagious No 11/07/24 09:44 Disease Does patient have nerve No 11/05/24 09:54 stimulator Patient instructed to have device shut off --Does patient have Pacemaker No 11/07/24 09:44 or ICD? When Was Last Pacemaker Check QUESTION #4 FULL TEXT: You/Your Family Experience fever (hyperthermia) with Anesthesia Last Oral Intake Last Oral intake: Last Oral Intake NPO since 00:00 11/07/24 09:44 Meds taken in AM with sips of water? Meds patient instructed to take am of surgery PONV PONV - clinical quality assurance specialist: PONV - clinical quality assurance specialist Female Yes 11/05/24 09:54 HX of Motion Sickness No 11/05/24 09:54 HX of N/V After Surgery No 11/05/24 09:54 Non-Smoker Yes 11/05/24 09:54 Duration of Surgery greater No 11/05/24 09:54 than 60 minutes Number of Risk Factors 2 11/05/24 09:54 PONV Score Moderate Risk 11/05/24 09:54 Height & Weight Height & Weight: Anesthesia: Height & Weight Height 5 ft 7 in 11/07/24 09:44 Weight: 70.76 kg 11/07/24 09:44 Body Mass Index (BMI) 24.4 11/07/24 09:44 Respiratory Assessment Respiratory Assessment - clinical quality assurance specialist: Respiratory Tract Infection Hx - clinical quality assurance specialist Hx Respiratory Tract Infection No 11/05/24 09:54 STOP Sleep Apnea STOP Sleep Apnea - clinical quality assurance specialist: STOP Sleep Apnea - clinical quality assurance specialist Hx Hypertension Yes 11/05/24 09:54 Hx Sleep Apnea No 11/05/24 09:54 CPAP No 05/17/24 09:55 BIPAP No 07/05/22 08:51 Do you snore loudly (louder No 11/05/24 09:54 than talking or can be heard Do you often feel tired/ No 11/05/24 09:54 fatigued/ sleepy during daytime? Has anyone observed you stop No 11/05/24 09:54 breathing during sleep? STOP Results Negative 11/05/24 09:54 QUESTION #5 FULL TEXT : Do you snore loudly (louder than talking or can be heard through closed doors)? Tobacco Use History Tobacco Use History - clinical quality assurance specialist: Tobacco Use History - clinical quality assurance specialist Tobacco Use Smoking Status Former smoker 11/05/24 09:54 Hx Tobacco Use No 11/05/24 09:54 Years Smoking Packs Smoked per Day Smoking Cessation Date was No - quit smoking greater 11/05/24 09:54 within the last 15 years than 15 years ago Hx Smoking Cessation Date 12/28/94 11/05/24 09:54 Hx Smoking Cessation No 11/05/24 09:54 Counseling Hematologic Medial History Hematologic Hx - clinical quality assurance specialist: Hematologic Medical Hx - senior government program analyst Hx of Blood Transfusion No 11/05/24 09:54 Hx of Transfusion in last 3 No 11/05/24 09:54 Months Date of Last Transfusion (if within last 3 months) Ever experience any problems No 11/05/24 09:54 with transfusion(s)? Specify any problems Hx of Preganancy in last 3 No 11/05/24 09:54 Months Nurse Filling Out Transfusion VLEHMAN 11/05/24 09:54 & Questions: Date: 11/05/24 11/05/24 09:54 Time: 10:06 11/05/24 09:54 Patient unable to answer at this time (ie. confused, unrespo /Reproduction History /Reproductive History - clinical quality assurance specialist: /Reproductive Hx- clinical quality assurance specialist Hx Now No 11/05/24 09:54 Gestational Age (in weeks): EDC: Hx Hx Para Hx Section SAB No 11/05/24 09:54 PFSH Medical History Walker as ambulation aid Gout History of CHF (congestive heart failure) Cholelithiasis Kidney stones Loss of hearing Vaginitis Discoloration of skin Bladder disease Restless legs Migraine headache Difficulty swallowing Vomiting Leg cramps History of pain when walking History of echocardiogram Wears dentures Wears glasses Post-menopausal Cancer Depression Anxiety Alcohol use Ambulates with cane Arthritis High cholesterol Back pain Former smoker History of edema History of stress test FH: total knee replacement Hypertension Home Medications ?Medication ?Instructions ?Recorded ?Last Taken ?Type simvastatin 20 mg tablet 20 mg PO QHS cholesterol 10/22/13 10/21/23 History timolol maleate 0.5 % eye drops 1 drp DAILY eye health 11/01/13 10/21/23 History lisinopril 10 mg tablet 40 mg PO QHS blood pressure 04/10/19 05/15/24 History metoprolol succinate 25 mg 12.5 mg (1/2 x 25 mg) PO DAILY #30 10/24/23 11/07/24 Rx tablet,extended release 24 hr tabs furosemide 40 mg tablet 40 mg PO DAILY PRN PRN edema 05/07/24 Unknown History amlodipine 5 mg tablet 5 mg PO DAILY 05/17/24 11/07/24 History ibuprofen 400 mg tablet 400 mg PO Q6H PRN fever or pain 05/17/24 Unknown Rx #20 tabs ondansetron 4 mg disintegrating 4 mg PO Q6H PRN PRN Nausea #15 tabs 07/11/24 Unknown Rx tablet Allergy/AdvReac Type Severity Reaction Status Date / Time morphine AdvReac Intermediate Inflammation Verified 11/07/24 09:43 of vein Surgical History History of total bilateral knee replacement Hx of myomectomy Hx of colonoscopy Hx of external ear surgery Hx of bilateral cataract extraction Hx of dilation and curettage H/O removal of cyst H/O breast biopsy History of abdominal surgery Social History household members: spouse Smoking Status: Former smoker alcohol intake: current Review of Systems (Anesthesia) ROS Narrative System reviewed and no additional complaints, except as documented.
--- NOTE | 2024-11-07 10:30 | IMM_PTH ---
PATIENT: ZACKARY HAMILTON LOC: [facility] U#:[id number] AGE/SX: 89/F ROOM: RE11/07/[address]: Dr. Luis Drew MD : 1935 BED: DIS: 11/07/2024 SPEC #: [id number] RECD: 11/07/24 13:09 STATUS: RICARDO REQ #: [id number] BEBE: 11/07/24 10:[address]: Luis Drew DEPT: IMMUNOHISTOCHEMISTRY RECD BY: Sergey Dooley ENTERED: 11/07/24 13:10 SP TYPE: IMMUNO OTHR DR: Dr. Edis Harding MD Tissues: A - Gastric mucous membrane Procedures: H Pylori (initial) PHYSICIAN & INSTITUTION [place] [id number] SPECIMEN INFORMATION: Tissue Source: A- Antrum biopsy Clinical Info: Vomiting in adult Specimen Number: [id number] CPT code: 66409 METHODOLOGY: Deparaffinized sections of prefer/formalin-fixed tissue or PAP/DQ stained slides are incubated with monoclonal/polyclonal antibodies/oligonucleotide probes. Localization is made via biotin free immunoperoxidase method. Appropriate controls are performed and reacted as expected. Results on target cell population are indicated in the following table: RESULTS: ANTIBODY / CLONE RESULT Block A H Pylori (polyclonal) negative These tests were developed and their performance characteristics determined by [facility]. They may not have been cleared or approved by the U.S. Food and Drug Administration. The FDA has determined that such clearance or approval is not necessary. The above immunohistochemical/dualISH markers are ordered and reviewed by the Pathologist. INTERPRETATION: A. Antrum, biopsy: Negative for Helicobacter pylori organisms. 11/08/2024
--- NOTE | 2024-11-07 11:25 | PCM.HP.BLA ---
History and Physical Date of Admission: 11/07/24 Date of Service: 10/16/24 MR#: [id number] Acct: [id number] Name: ZACKARY HAMILTON Rep #: [id number] : 1935 Provider: Dr. Luis Drew MD Age/Sex: 89/F Location: [facility] Status: Signed Intake Vital Signs 07/11/2421:57 10/16/2410:02 Height 5 ft 7 in 5 ft 7 in Weight: 160 lb BMI 25.0 BP 120/84 H Blood Pressure Location Rt brachial Position Sitting Respiration 18 Pulse 66 Pulse Source Monitor Temp 97.3 F L Temp Source Temporal Pulse Oximetry (%) 100 Oxygen Delivery Method room air Intake Visit Reasons: GALLBLADDER/POSSIBLE EGD Chief Complaint: gallbladder/possible EGD Is patient in pain?: No Allergies morphine Adverse Reaction (Intermediate, Verified 10/16/24 10:03) Inflammation of vein Medications ?Medication ?Instructions ?Recorded ?Confirmed ?Type simvastatin 20 mg tablet 20 mg PO QHS cholesterol 10/22/13 10/16/24 History timolol maleate 0.5 % eye drops 1 drp DAILY eye health 11/01/13 10/16/24 History lisinopril 10 mg tablet 40 mg PO QHS blood pressure 04/10/19 10/16/24 History metoprolol succinate 25 mg 12.5 mg (1/2 x 25 mg) PO DAILY #30 10/24/23 10/16/24 Rx tablet,extended release 24 hr tabs oxycodone-acetaminophen 5 mg-325 1 tab PO Q6H PRN pain 5 days #20 03/29/24 10/16/24 Rx mg tablet (Percocet) tabs furosemide 40 mg tablet 40 mg PO DAILY PRN PRN edema 05/07/24 10/16/24 History ketorolac 10 mg tablet 10 mg PO Q6H PRN PRN pain 05/07/24 10/16/24 History amlodipine 5 mg tablet 5 mg PO DAILY 05/17/24 10/16/24 History ciprofloxacin HCl 500 mg tablet 500 mg PO BID #6 tabs 05/17/24 10/16/24 Rx (Cipro) ibuprofen 400 mg tablet 400 mg PO Q6H PRN fever or pain 06/21/24 11/20/24 Rx #20 tabs ondansetron 4 mg disintegrating 4 mg PO Q6H PRN PRN Nausea #15 tabs 07/11/24 10/16/24 Rx tablet Have you fallen in the past year?: No (Not specifically asked) [facility] Medical History (Updated 10/16/24 @ 15:[address] Luis Drew MD) Cholelithiasis Kidney stones Loss of hearing Vaginitis Discoloration of skin Bladder disease Restless legs Migraine headache Difficulty swallowing Vomiting Leg cramps History of pain when walking History of echocardiogram Wears dentures Wears glasses Post-menopausal Cancer Depression Anxiety Alcohol use Ambulates with cane Arthritis High cholesterol Back pain Former smoker History of edema History of stress test FH: total knee replacement Hypertension Surgical History Hx of myomectomy Hx of colonoscopy Hx of external ear surgery Hx of bilateral cataract extraction Hx of dilation and curettage H/O removal of cyst H/O breast biopsy History of abdominal surgery Social History household members: spouse Smoking Status: Former smoker alcohol intake: current HPI HPI HPI: Patient is a 89-year-old female who presents for evaluation for recurrent vomiting episodes and some dysphagia. They are referred for surgical consultation from Dr. Harding. Patient is known to me from a inpatient stay related to a possible small bowel obstruction in April 2022 and thereafter underwent both EGD and colonoscopy in June 2022. Mrs. Hamilton communicates that she has experienced episodic vomiting that sidelined her for a week every couple of months. She describes these episodes as never starting the morning but otherwise does not seem to follow a particular pattern for time of day nor preceding diet. She reports that she initially feels nausea and it takes a while for the vomiting to start. She believes these episodes have been going on for a little over a year. She denies any associated bloating. She shares that there is sometimes associated abdominal pain but she goes on to characterize this as minimal compared to what [her] Bridge partners describe related to their gallbladder attacks. When this pain is present she believes it to be localized to the right abdomen and lower middle. She reports these episodes have been better lately but adds that 3 of the 4 weekends in August she dealt with such episodes. She additionally presents for swallowing difficulty. She at 1 point shares that she does not have a great deal (with swallowing difficulty). In fact, she states she was surprised to hear that [her] tablet was stuck (referring to her recent swallow study on 09/30/2024). She further adds that she did not perceive any discomfort with this experience. She notes that every once in a while [she] feels like [she] cannot swallow but does not get the impression that foodstuff will not go down. Beyond the above patient states that she feels like she is falling apart. She goes on to describe that she has been dealing with some rather acute onset incontinence as well as progressive difficulty with ambulating?noting a particular difficulty with her balance. States that she has been working with Dr. Milner of urology to address the incontinence complaint but states to this point there has not been a satisfactory explanation. She does confirm that she was recently evaluated by him for history of kidney stones but when he went to perform a lithotripsy no stones were found. Workup to date has included both the esophagram on 09/30/2024 as well as a abdominal ultrasound on 09/26/2024 that showed a 2.6 cm gallstone and a 3 mm gallbladder wall. ROS General General: Yes fatigue; No weight change, appetite, colon cancer, breast cancer or weakness HEENT HEENT: Yes difficulty swallowing; No eye injury, eye surgery, swollen glands or hoarseness Endo Endocrine: No thyroid disease, diabetes mellitus, thyroid cancer, Hair loss, heat intolerance or cold intolerance Skin Skin: No rash or changing moles Musc Musculoskeletal: Yes arthritis and gout; No back problems, rheumatoid arthritis or joint pain Cardio Cardiovascular: Yes high blood pressure; No murmur, pacemaker, heart disease, atrial fibrillation, heart attack, heart stent, palpitations, shortness of breat with exertion or chest pain Psych Psychiatric: Yes depression; No anxiety or hearing voices Resp Respiratory: No shortness of breath, No sleep apnea, No cough, No COPD, No asthma, No emphysema and No wheezing Gastro Gastrointestinal: No abdominal pain, Yes nausea or vomiting, Yes diarrhea, Yes constipation, No blood in stool, No acid reflux, Yes hemorrhoids, No ulcers, No gallbladder problem and No black,tarry stools Giancarlo Hematologic: No blood thinners, No blood disorders, No bleeding, No anemia and No blood clots Neuro Neurologic: No numbness, No tingling and No weakness Exam Const General: cooperative, comfortable and no acute distress Nutritional Appearance: average body habitus Orientation: alert, awake and oriented x3 Other: Mildly hard of hearing Resp Effort & Inspection: normal respiratory effort GI Other: Nondistended, soft, nontender to palpation, negative De Dios sign Assessment and Plan Assessment and Plan (1) Vomiting in adult: Status: Acute Comment: 'Multiple unexplained episodes of vomiting while patient is otherwise feeling well. As above, we will proceed with EGD simultaneous to colonoscopy. This statement was taken from a note authored by me in April 2022 and seems to suggest that patient has recurrence of an earlier problem despite this being presented as a entirely new issue. In eliciting patient's history it is difficult to see a clear etiology for this symptom and I would suggest her differential includes symptomatic cholelithiasis but also possible manifestation of a partial small bowel obstruction given our initial encounter in April 2022. Apart from obtaining imaging that would further suggest this latter possibility I find it reasonable to pursue additional workup for patient's gallbladder. Yet, I do have some skepticism about this being attributable to symptomatic cholelithiasis as patient appears to have evidence of stable cholelithiasis dating back to at least 2018 (and a smaller but still enlarged gallstone was seen even as far back as imaging from 2010). Additional items from patient's differential could include normal pressure hydrocephalus (with her reports of new onset incontinence and balance problems), but I see this is unlikely given a reassuring brain CT performed on July 11, 2024. With Mrs. Hamilton's retention of a barium tablet at the GE junction I do believe further investigation is warranted with EGD to ensure there is no mass lesion causing that entrapment and would plan to perform empiric biopsies for H. pylori at the same time. Plan: ? HIDA imaging ? Repeat EGD with biopsy to investigate GE junction and perform empiric H. pylori testing ? Patient would benefit from imaging during one of her vomiting episodes to better assist with determining the etiology for the symptoms (2) Cholelithiasis: Status: Chronic Qualifiers: Cholelithiasis location: gallbladder Cholecystitis presence: without cholecystitis Comment: Cholelithiasis with a solitary calcified gallstone that appears stable at least since 2018. Exam is benign. Thus at this time I remain unconvinced that this will be the source of patient's symptoms. Plan: ? HIDA imaging (3) Difficulty swallowing: Status: Acute Comment: By self-report patient shares that she does not have a great deal of swallowing difficulty] yet the trapping of a barium tablet is suggestive of a possible mechanical cause and it has been over 2 years since her last EGD so I believe repeat EGD with biopsy and investigation of the GE junction is warranted I have examined the patient the following changes are noted: The patient describes that she had another bout of nausea but no emesis since our last visit. She also admits that she has found herself taking too big of bites and feeling retrosternal pain with eating. When she is more conscientious about taking smaller bites this seems to be better. All questions were answered and patient's abdominal exam was benign. Will now proceed with planned EGD.
--- NOTE | 2024-11-07 12:08 | OP.EGD_ITS ---
Patient Name: Shena Schultz Procedure Date: 11/07/2024 11:24 AM Date of : 1935 Age: 89 Procedure: Upper GI endoscopy Indications: Dysphagia, Nausea with vomiting Providers: Luis Drew MD Referring MD: Harley Harding Medicines: See the Anesthesia note for documentation of the administered medications Patient Profile: Refer to note in patient chart for documentation of history and physical. Patient has symptoms of chronic dysphagia, chronic nausea and chronic vomiting. Complications: No immediate complications. Estimated blood loss: Minimal. Procedure: Pre-Anesthesia Assessment: - The heart rate, respiratory rate, oxygen saturations, blood pressure, adequacy of pulmonary ventilation, and response to care were monitored throughout the procedure. After obtaining informed consent, the endoscope was passed under direct vision. Throughout the procedure, the patient's blood pressure, pulse, and oxygen saturations were monitored continuously. The Endoscope was introduced through the mouth, and advanced to the second part of duodenum. The upper GI endoscopy was accomplished without difficulty. The patient tolerated the procedure well. Scope In: 11:35:12 AM Scope Out: 11:59:34 AM Total Procedure Duration Time 0 hours 24 minutes 22 seconds Findings: The duodenal bulb, first portion of the duodenum and second portion of the duodenum were normal. No biopsies or other specimens were collected for this exam. Localized mildly erythematous mucosa without bleeding was found in the gastric antrum. Biopsies were taken with a cold forceps for Helicobacter pylori testing. The pathology specimen was placed into Bottle [Bottle Label]. Estimated blood loss was minimal. Multiple 1 to 3 mm sessile polyps with no bleeding and no stigmata of recent bleeding were found in the cardia and in the gastric fundus. Biopsies were taken with a cold forceps for histology. Estimated blood loss was minimal. A single 3 mm sessile polyp with no bleeding and no stigmata of recent bleeding was found at the gastroesophageal junction. Biopsies were taken with a cold forceps for histology. Estimated blood loss was minimal. The Z-line was irregular and was found 39 cm from the incisors. Estimated blood loss: 3 mL requiring treatment with placement of hemostatic clip(s). Multiple 2 to 4 mm plaques were found in the middle third of the esophagus. Biopsies were taken with a cold forceps for histology. Estimated blood loss was minimal. A medium-sized hiatal hernia was present. Impression: - Normal duodenal bulb, first portion of the duodenum and second portion of the duodenum. No specimens collected. - Erythematous mucosa in the antrum. Biopsied. - Multiple gastric polyps. Biopsied. - A single gastroesophageal junction polyp. Biopsied. - Z-line irregular, 39 cm from the incisors. - Multiple plaques in the middle third of the esophagus. Biopsied. - Medium-sized hiatal hernia. Recommendation: - Discharge patient to home (via wheelchair). - Soft diet for 1 week. - No aspirin, ibuprofen, naproxen, or other non-steroidal anti-inflammatory drugs for 2 days after biopsy. - Await pathology results. - Telephone my office for pathology results in 1 week. Procedure Code(s): --- Professional --- 98995, Esophagogastroduodenoscopy, flexible, transoral; with biopsy, single or multiple Diagnosis Code(s): --- Professional --- K31.89, Other diseases of stomach and duodenum K31.7, Polyp of stomach and duodenum K22.82, Esophagogastric junction polyp K22.89, Other specified disease of esophagus K44.9, Diaphragmatic hernia without obstruction or gangrene R13.10, Dysphagia, unspecified R11.2, Nausea with vomiting, unspecified CPT copyright 2021 [employer]. All rights reserved. The codes documented in this report are preliminary and upon timber killer review may be revised to meet current compliance requirements. Luis Drew MD 11/07/2024 12:08:13 PM This report has been signed electronically. Number of Addenda: 0 Note Initiated On: 11/07/2024 11:24 AM
--- NOTE | 2024-11-07 12:08 | PCM.POST.ANE ---
Anesthesia: Postop Eval I Current Vital Signs Temperature: 97.4 F Pulse Rate: 68 Blood Pressure: 79/45 Respiratory Rate: 16 Pulse Ox: 98 Oxygen Delivery Method: Room Air Assessment Airway patent: Yes Spontaneous unlabored respirations: Yes Mental status: Asleep nausea: No Vomiting: No Anesthesia Complication: No Fluid Hydration Crystalloid volume administer (ml): 90 Total IV fluid infused: 90 Progress Note Anesthesia document: Postop Eval 1 completed: Yes
--- NOTE | 2024-11-07 12:09 | OP.CCLET_ITS ---
11/07/2024 Harley Harding [address] [place] [address] Re : Upper GI endoscopy procedure for [facility] Dear Dr. Harding This procedure was performed on October. My impressions and recommendations are as follows: Impressions : - Normal duodenal bulb, first portion of the duodenum and second portion of the duodenum. No specimens collected. - Erythematous mucosa in the antrum. Biopsied. - Multiple gastric polyps. Biopsied. - A single gastroesophageal junction polyp. Biopsied. - Z-line irregular, 39 cm from the incisors. - Multiple plaques in the middle third of the esophagus. Biopsied. - Medium-sized hiatal hernia. Recommendations : - Discharge patient to home (via wheelchair). - Soft diet for 1 week. - No aspirin, ibuprofen, naproxen, or other non-steroidal anti-inflammatory drugs for 2 days after biopsy. - Await pathology results. - Telephone my office for pathology results in 1 week. My findings are described in the full procedure note, which is enclosed. If I can be of further assistance, please feel free to contact me at Doctor phone number(s): , Work: . Sincerely, Luis Drew MD 11/07/2024 12:08:13 PM This report has been signed electronically.
--- NOTE | 2024-11-07 12:33 | PCM.POSTANE2 ---
Anesthesia Postop Eval I Sum Postop Eval Completion status Anesthesia document: Postop Eval 1 completed: Yes Anesthesia Postop Eval I Summary Anesthesia Postop Eval I Summary: Anesthesia Postop Eval I: Assessment Summary Airway patent Yes 11/07/24 12:09 [email or web address] Spontaneous unlabored Yes 11/07/24 12:09 [email or web address] respirations Mental status Asleep 11/07/24 12:09 [email or web address] nausea No 11/07/24 12:09 [email or web address] Vomiting No 11/07/24 12:09 [email or web address] Anesthesia Postop Eval I: Fluid Summary Crystalloid volume administer 90 11/07/24 12:09 [email or web address] (ml) Colloids volume administered ( ml) Blood Product volume administered (ml) Total IV fluid infused 90 11/07/24 12:09 [email or web address] Anesthesia Postop Eval I: Summary Notes Anesthesia Complication No 11/07/24 12:09 [email or web address] Anesthesia Complication Comment: Post-operative progress note Anesthesia: Postop Eval II Evaluation Mental status: Awake Pain Level: 0 nausea: No Vomiting: No
== END 2024-11-07 13:08 | disposition home or self-care (01) ==
LOC: EN 09:25 → AC 09:26
PROVIDERS: PCP Family Medicine; Referring Provider Family Medicine; Visit Provider Surgery
PROC: 0DJ08ZZ Inspection of Upper Intestinal Tract, Via Natural or Artificial Opening Endoscopic (ICD-10-PCS; CPT 43235; principal; 2024-11-07 10:25)
DX: K29.50 Unspecified chronic gastritis without bleeding (principal); K44.9 Diaphragmatic hernia without obstruction or gangrene; K22.82 Esophagogastric junction polyp; Z87.891 Personal history of nicotine dependence; K80.20 Calculus of gallbladder without cholecystitis without obstruction; I10 Essential (primary) hypertension; K31.7 Polyp of stomach and duodenum; E78.00 Pure hypercholesterolemia, unspecified; Z79.899 Other long term (current) drug therapy
CPT/HCPCS: 43239; 88305; 88312; 88342; A4216; J2405

== ENCOUNTER → 2024-12-10 | Outpatient (CLI) | payer MEDICARE, SELFPAY ==
--- NOTE | 2024-12-10 11:07 | NM_ITS ---
CLINICAL: 89-year-old female with history of cholelithiasis. RADIONUCLIDE HEPATOBILIARY SCINTIGRAPHY COMPARISON: Abdominal ultrasound report 09/26/2024 FINDINGS: Following the intravenous administration of 6.0 mCi of 99m Tc Mebrofenin, hepatobiliary images reveal: 1. Relatively prompt and homogeneous radiopharmaceutical concentration is noted by a normal sized liver. The left lobe demonstrates a region of hypofunction which appears to correlate with cyst formation demonstrated on CT of the abdomen and pelvis dated 03/29/2024. 2. Gallbladder activity is identified at approximately 40 minutes post radiopharmaceutical administration. 3. Small intestinal tract is observed at 1718 minutes post radiopharmaceutical administration. 4. Washout of the radiopharmaceutical by the hepatic parenchyma appears qualitatively normal. NM/Hepatobilliary Imaging IMPRESSION: 1. Visualization of the gallbladder within 60 minutes post radiopharmaceutical administration excludes acute cholecystitis with 97% certitude. (Maritza et al, Nucl Med [place] [facility] Press pg. 35, 1980). Electronically Signed: Feroz Lopez DO at 22:23 EST ,
== END | disposition home or self-care (01) ==
LOC: NM 11:06
PROVIDERS: PCP Family Medicine; Referring Provider Surgery; Visit Provider Surgery
DX: K80.20 Calculus of gallbladder without cholecystitis without obstruction (principal)
CPT/HCPCS: 78226; A9537

== ENCOUNTER 2025-01-10 11:00 | Outpatient (RCR) | payer MEDICARE, SELFPAY ==
--- NOTE | 2024-09-25 13:35 | HP.PTEVAL_ITS ---
Patient's Visit Information Visit Information Visit Information: ZACKARY HAMILTON is a 89 year old F referred to Physical Therapy by Dr. Edis Harding MD with a diagnosis of Gait instability. Date of Evaluation: 09/25/24 Physical Therapist: Hector Holden, PT, ATC Visit Plan Frequency: 2x /Week Duration: 4-6 Weeks Plan: B LE strengthening, core stab ex's, balance and proprio ex's, gait training, and HEP Subjective Subjective: Pt notes she has had balance concerns for several years. Pt reports she has had therapy in the past, but continues to have difficulty. Pt notes her balance has worsened over the past month. Pt reports she has several other issues including throwing up a lot which has been contributed to her stress and other possibilities. Pt reports no recent falls. Pt notes she has been ambulating with a cane for the past 6 months secondary to her intolerance for standing, and her difficulty with balance. Pt reports she has a very difficult time with walking up or down a slope. Pt reports she has descent sensation in her feet. 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 Pt reports her eye sight is good now. She used to see objects that weren't there. Pt denies feeling light headed or dizzy at this time. No pain this date. Pt reports her goal is to be able to walk better since she helps to take care of her ailing . Objective Objective: Neuro: B LE sensation is WNL to light touch. TU sec MMT: B LE's are rated 4/5 throughout FGA: 4/30 Transfers: Pt must hold on to my arm in order to stand from a sitting position Balance/Special Test Scores Functional Gait Assessment Score: 4 % Disability: 86.6700 Lower Extremity Functional Score: 15 Goals Goal 1:: Improve FGA to 10/30 points to aid with preventing future falls Goal Time Frame: 4-6 Weeks Goal 2:: Perform a TUG test in under 20 seconds to aid with efficient community mobility Goal Time Frame: 4-6 Weeks Goal 3:: Increase B LE strength to 5/5 to aid with sit to stand transfers Goal Time Frame: 4-6 Weeks Goal 4:: I with HEP Goal Time Frame: 4-6 Weeks Rehabilitation Potential Physical Therapy Diagnosis: Pt has gait instability, LE weakness, and is a fall risk at this time secondary to debilitation Rehabilitation Potential: Good Anticipated Interventions Patient/Client Instruction: Educate patient on: Condition and Plan of Care For the Purpose of:: To improve self management Therapeutic Exercise to Include: Strength training, Endurance training, Balance training, Gait and locomotor training and Dynamic Lumbar Stabilization For the Purpose of:: To improve muscle performance and motor function, To improve ability to perform ADL's, To increase tolerance to activity/condition/position and To improve gait and locomotor functions Text: Thank you for the opportunity to evaluate your patient. For Medicare and Medicare HMO plans, please review the plan of care and approve it. It will need to be FAXED BACK to us at [phone] for Medicare purposes. For Medicare only, by signing this I certify the plan of care. Please let me know if there are questions or concerns regarding this plan of care. Physician Signature: Date:
--- NOTE | 2024-11-12 15:43 | HP.PTREVAL ---
Re-Evaluation Intro: Dr. Edis Harding MD, It has been my pleasure to treat ZACKARY HAMILTON over the last 9 visits for Gait instability. Please see the progress note below for an update on the physical therapy plan of care! Subjective Subjective: I am really getting better overall Objective Objective/Function: B LE MMT 4/5 throughout FGA= 8/30 Tug 23 seconds Pt has made significant gains at this time and would benefit from further strength and balance training Plan Plan Plan: 11/12/24- B LE strengthening, core stab ex's, balance and proprio ex's, gait training, and HEP Balance/Gait/Functional tests Balance/Special Test Scores Functional Gait Assessment Score: 8 % Disability: 73.3400 Lower Extremity Functional Score: 15 Goals Goals Goal 1:: Improve FGA to 10/30 points to aid with preventing future falls Goal Time Frame: 4-6 Weeks Goal 2:: Perform a TUG test in under 20 seconds to aid with efficient community mobility Goal Time Frame: 4-6 Weeks Goal 3:: Increase B LE strength to 5/5 to aid with sit to stand transfers Goal Time Frame: 4-6 Weeks Goal 4:: I with HEP Goal Time Frame: 4-6 Weeks Anticipated Interventions Anticipated Interventions Patient/Client Instruction: Educate patient on: Condition and Plan of Care For the Purpose of:: To improve self management Therapeutic Exercise to Include: Strength training, Endurance training, Balance training, Gait and locomotor training and Dynamic Lumbar Stabilization For the Purpose of:: To improve muscle performance and motor function, To improve ability to perform ADL's, To increase tolerance to activity/condition/position and To improve gait and locomotor functions Re-Evaluation Ending Re-evaluation ending: Please do not hesitate to contact me at [phone] by phone or if you have questions or concerns regarding this new plan of care! Sincerely, Hector Holden, PT, ATC
--- NOTE | 2024-12-25 14:07 | HP.PTREVAL ---
Re-Evaluation Intro: Dr. Edis Harding MD, It has been my pleasure to treat ZACKARY HAMILTON over the last 17 visits for Gait instability. Please see the progress note below for an update on the physical therapy plan of care! Subjective Subjective: Pt reports she is improving, but still feels like she needs to improve Objective Objective/Function: TU seconds FGA: 08/26 still a significant risk for falling at this time MMT: B LE's are grossly 5/5 throughout Pt is showing excellent strength progressions, but lacks functional balance at this time and is a high risk for falling Plan Plan Plan: 12/25/24- Cont to focus on balance activity and gait train ing at this time Balance/Gait/Functional tests Balance/Special Test Scores Functional Gait Assessment Score: 9 % Disability: 70.0000 Lower Extremity Functional Score: 32 Goals Goals Goal 1:: Improve FGA to 10/30 points to aid with preventing future falls Goal Time Frame: 4-6 Weeks Goal Progress: Progressing Goal 2:: Perform a TUG test in under 20 seconds to aid with efficient community mobility Goal Time Frame: 4-6 Weeks Goal Progress: Progressing Goal 3:: Increase B LE strength to 5/5 to aid with sit to stand transfers Goal Time Frame: 4-6 Weeks Goal Progress: Goal Met Goal 4:: I with HEP Goal Time Frame: 4-6 Weeks Goal Progress: Progressing Anticipated Interventions Anticipated Interventions Patient/Client Instruction: Educate patient on: Condition and Plan of Care For the Purpose of:: To improve self management Therapeutic Exercise to Include: Strength training, Endurance training, Balance training, Gait and locomotor training and Dynamic Lumbar Stabilization For the Purpose of:: To improve muscle performance and motor function, To improve ability to perform ADL's, To increase tolerance to activity/condition/position and To improve gait and locomotor functions Re-Evaluation Ending Re-evaluation ending: Please do not hesitate to contact me at [phone] by phone or if you have questions or concerns regarding this new plan of care! Sincerely, Hector Holden, PT, ATC
--- NOTE | 2025-02-13 10:48 | HP.PT.NRP ---
Patient Information Patient Information: ZACKARY HAMILTON was seen in my office for initial evaluation on 09/25/24. The following Plan of Care was established for this patient: POC Established Initial Frequency: 2x /Week Initial Duration: 4-6 Weeks Anticipated Interventions Patient/Client Instruction: Educate patient on: Condition and Plan of Care For the Purpose of:: To improve self management Therapeutic Exercise to Include: Strength training, Endurance training, Balance training, Gait and locomotor training and Dynamic Lumbar Stabilization For the Purpose of:: To improve muscle performance and motor function, To improve ability to perform ADL's, To increase tolerance to activity/condition/position and To improve gait and locomotor functions Last Seen Last Seen: This patient was last seen in our office . Pertinent comments regarding their Physical therapy will appear below: Pt has not returned in greater than 30 days and is discharged at this time. At this point I will be discontinuing this patient from physical therapy. I would be happy to see this patient again in the future if found appropriate by the physician. Thank you! Hector Holden, PT, ATC Balance/Gait/Functional tests Balance/Special Test Scores Functional Gait Assessment Score: 9 % Disability: 70.0000 Lower Extremity Functional Score: 32
== END 2025-01-10 19:00 | disposition home or self-care (01) ==
LOC: PT 11:00
PROVIDERS: PCP Family Medicine; Visit Provider Family Medicine
DX: M51.369 Other intervertebral disc degeneration, lumbar region without mention of lumbar back pain or lower extremity pain (principal); R26.81 Unsteadiness on feet
CPT/HCPCS: 97110; 97116; 97161; 97530

== ENCOUNTER → 2025-03-24 | Outpatient (CLI) | payer MEDICARE, SELFPAY ==
[2025-03-24 15:39] LABS: Ionized Calcium Order ORDER TUBE
[2025-03-24 18:08] LABS: Absolute Lymphocyte Count 1.23 X10^3/uL (0.83-4.51); Absolute Neutrophil Count 2.4 X10^3/uL (2.0-7.7); Basophil# 0.02 X10^3/uL; Basophil% 0.5 % (0-1); Eosinophil# 0.19 X10^3/uL; Eosinophils% 4.6 % (0-5); Hematocrit 39.2 % (37-47); Hemoglobin 12.9 g/dL (12.0-15.0); Lymphocyte # 1.23 X10^3/ul (0.83-4.51); Lymphocyte % 29.9 % (19-41); Mean Corp Hgb Conc 32.9 g/dL (32-36); Mean Corpuscular Hgb 29.1 pg (27.0-32.0); Mean Corpuscular Volume 88.3 fL (81-99); Mean Platelet Vol. 10.3 fl (6.2-12.0); Monocyte# 0.28 X10^3/uL; Monocyte% 6.8 % (0-10); NRBC Flagged by Analyzer 0 % (0-5); Neutrophil # 2.38 X10^3/uL (2.7-7.7); Neutrophil % 57.7 % (47-70); Platelet Count 273 K/mm3 (150-450); RBC Distribution Width CV 13.8 % (11.6-14.6); RBC Distribution Width SD 44.5 fl (35.1-43.9); Red Blood Count 4.44 M/mm3 (4.2-5.4); White Blood Count 4.1 K/mm3 (4.4-11.0)
[2025-03-24 18:47] LABS: PTHIN 100 pg/mL (11-61)
[2025-03-24 19:38] LABS: Anion Gap 11 (5-15); BUN 24 mg/dL (4-19); Calcium,Total 9.9 mg/dL (7.6-11.0); Carbon Dioxide 23.6 mmol/L (21.0-32.0); Chloride 107 mmol/L (98-108); Cholesterol 167 mg/dL (<=200); Creatinine, Serum 0.81 mg/dL (0.70-1.20); EST Glomerular Filtration Rate 70 (>60); Glucose 92 mg/dL (70-99); High Density Lipoprotein 80 mg/dL; Low Density Lipoprotein Calc. 75 mg/dL; Magnesium 1.9 mg/dL (1.5-2.2); Phosphorus 2.9 mg/dL (2.7-4.5); Potassium 4.1 mmol/L (3.3-5.1); Pro- Brain NATRIURETIC PEPTIDE 369 pg/mL (<=1800); Sodium Level 142 mmol/L (133-145); Triglycerides 63 mg/dL; Very Low Density Lipoprotein 13 mg/dL (5-40); Vitamin D,25 Hydroxy 32.3 ng/mL (30-100)
== END | disposition home or self-care (01) ==
LOC: MFPLAB 14:32
PROVIDERS: PCP Family Medicine; Referring Provider Family Medicine; Visit Provider Family Medicine
DX: I50.9 Heart failure, unspecified (principal); E83.52 Hypercalcemia; E78.5 Hyperlipidemia, unspecified
CPT/HCPCS: 36415; 80048; 80061; 82306; 83735; 83880; 83970; 84100; 85025

== ENCOUNTER → 2025-04-07 | Outpatient (CLI) | payer MEDICARE, SELFPAY ==
--- NOTE | 2025-04-07 12:40 | RAD_ITS ---
PROCEDURE: ABD INC DECUB AND/OR ERECT 04/07/2025 REASON FOR EXAM: UNSPECIFIED ABDOMINAL PAIN TECHNIQUE: Two views; single upright AP view, 2 supine AP views to include the entire abdomen and pelvis, 3 total images COMPARISON: 02/26/2024 FINDINGS: No free air identified. Mild gaseous distention of loops of bowel in the right and left upper abdomen with associated air-fluid levels unclear if this is colonic or small bowel. Overall there is a paucity of bowel gas in the mid to lower abdomen. If further clinical concern for possible obstruction may consider cross-sectional imaging. Partially calcified gallstone and an eggshell calcification previously noted to be associated with liver lesion again seen. Osteopenia. Leftward curvature thoracolumbar spine. Lumbar spondylosis/discogenic change. Numerous surgical clips left mid to lower abdomen. Aortoiliac atherosclerotic calcifications. RAD/Abd Inc Decub and/or Erect IMPRESSION: No free air identified. Mild gaseous distention of loops of bowel in the right and left upper abdomen with associated air-fluid levels unclear if this is colonic or small bowel. Overall there is a paucity of bowel gas in the mid to lower abdomen. If further clinical concern for possible obstruction may consider cross-sectional imaging. Reading Location: [id number]
[2025-04-07 16:02] LABS: Absolute Lymphocyte Count 0.98 X10^3/uL (0.83-4.51); Absolute Neutrophil Count 1.9 X10^3/uL (2.0-7.7); Basophil# 0.02 X10^3/uL; Basophil% 0.6 % (0-1); Eosinophil# 0.14 X10^3/uL; Eosinophils% 4.1 % (0-5); Hematocrit 37.5 % (37-47); Hemoglobin 12.5 g/dL (12.0-15.0); Lymphocyte # 0.98 X10^3/ul (0.83-4.51); Lymphocyte % 28.6 % (19-41); Mean Corp Hgb Conc 33.3 g/dL (32-36); Mean Corpuscular Hgb 29.3 pg (27.0-32.0); Mean Corpuscular Volume 87.8 fL (81-99); Mean Platelet Vol. 10.5 fl (6.2-12.0); Monocyte# 0.38 X10^3/uL; Monocyte% 11.1 % (0-10); NRBC Flagged by Analyzer 0 % (0-5); Neutrophil % 55.3 % (47-70); Platelet Count 287 K/mm3 (150-450); RBC Distribution Width CV 13.3 % (11.6-14.6); RBC Distribution Width SD 42.9 fl (35.1-43.9); Red Blood Count 4.27 M/mm3 (4.2-5.4); White Blood Count 3.4 K/mm3 (4.4-11.0)
[2025-04-07 16:06] LABS: ALB/GLOB Ratio 1.7 RATIO (0.9-2.4); AST(SGOT) 18 U/L (<=31); Alanine Aminotransfer ALT/SGPT 9 U/L (<=34); Alkaline Phosphatase 77 U/L (35-104); Anion Gap 12 (5-15); BUN 22 mg/dL (4-19); BUN/Creat Ratio 24.4 RATIO (10-20); CRP 3.52 mg/L (0.0-3.0); Calcium,Total 9.9 mg/dL (7.6-11.0); Carbon Dioxide 22.5 mmol/L (21.0-32.0); Chloride 105 mmol/L (98-108); Creatinine, Serum 0.89 mg/dL (0.70-1.20); EST Glomerular Filtration Rate 63 (>60); Globulin 2.4 g/dL (2.2-4.2); Glucose 79 mg/dL (70-99); Potassium 3.9 mmol/L (3.3-5.1); Protein, Total 6.4 g/dL (5.9-8.4); Sodium Level 139 mmol/L (133-145); Total Bilirubin 0.44 mg/dL (0.00-1.30)
[2025-04-07 16:15] LABS: Erythrocyte Sedimentation Rate 2 mm/hr (0-30)
== END | disposition home or self-care (01) ==
LOC: MTLAB 12:37
PROVIDERS: PCP Family Medicine; Referring Provider Family Medicine; Visit Provider Family Medicine
DX: R10.9 Unspecified abdominal pain (principal)
CPT/HCPCS: 36415; 74019; 80053; 85025; 85652; 86140

== ENCOUNTER → 2025-06-07 | Outpatient (CLI) | payer MEDICARE, SELFPAY ==
--- NOTE | 2025-06-07 08:00 | CT_ITS ---
PROCEDURE: ABDOMEN/PELVIS WITHOUT CONT, 06/07/2025 REASON FOR EXAM: OVERACTIVE BLADDER TECHNIQUE: CT abdomen and pelvis was performed without IV contrast. Multiplanar reformats were generated. IV contrast: None. RADIATION DOSE SUMMARY: CTDlvol: 7.36 mGy DLP: 331.05 mGycm One or more dose reduction techniques were used (e.g., Automated exposure control, adjustment of the mA and/or kV according to patient size, use of iterative reconstruction technique). COMPARISON: 09/26/2024 and prior FINDINGS: Note that evaluation of the abdominopelvic viscera, vasculature, and remaining soft tissues is limited in the absence of IV contrast. Exam additionally limited by generalized photon starvation. Portions of the body wall extend beyond the field of view, including the area of operative changes in the LEFT gluteal region. Lung bases: 5 x 3 mm LEFT basilar nodule. Atelectasis/scarring. Liver: Grossly similar simple and peripherally calcified LEFT lobe hepatic cysts. Additional tiny hypodensities too small to characterize. Spleen: Unremarkable. Gallbladder: Cholelithiasis. Pancreas: Grossly unremarkable. Adrenals: Unremarkable. Kidneys: Renal cysts and additional tiny hypodensities too small to characterize, presumed additional cysts. Punctate nonobstructing intrarenal calculus on the LEFT versus a renal hilar vascular calcification. Cortical thinning at the LEFT mid and lower pole. Difficult to trace portions of the ureters. No hydronephrosis or definite ureteral calculus identified.. Bowel: No bowel dilatation or definite inflammation. Diverticulosis. Tortuous and redundant transverse colon extends into the pelvis. Surgical clips in the LEFT paracolic gutter and along the LEFT retroperitoneum/pelvic sidewall. Normal caliber appendix. Lymph nodes: Grossly unremarkable. Vasculature: Severe diffuse atherosclerosis. Peritoneum: Operative changes as above. Bladder: Underdistended and suboptimally evaluated, grossly unremarkable. Reproductive Organs: Poorly delineated, grossly unremarkable. Body Wall: As above. Operative changes of the LEFT flank/gluteal region and anterior abdominal wall. Similar thick-walled small incisional collection along the midline anterior abdominal wall measuring 0.6 x 2.3 x 1.6 cm. Slightly enlarged lipomatous lesion in the posterior midline lumbar paraspinal soft subcutaneous tissues measuring 7.4 x 5.1 x 2.4 cm, previously 6.1 by 4.7 x 2.5 cm measured similarly. No soft tissue components are identified. Bones: Demineralization. Multilevel spondylosis. Mild lumbar levoscoliosis.. CT/Abdomen/Pelvis without Cont IMPRESSION: 1. Slightly limited noncontrast exam as above. Bladder is underdistended and s uboptimally evaluated particularly in the absence of IV contrast, without definite abnormality. If further concern, consider CT urogram. 2. Similar chronic 2.3 cm thick-walled incisional probable seroma along the ant erior midline abdominal wall. Superimposed infection cannot be entirely excluded by imaging however there is no definite e vidence to suggest this. Correlate with clinical evaluation. 3. Slightly enlarged now 7.4 cm lipomatous lesion in the posterior paraspinal s ubcutaneous tissues. Although this may reflect a lipoma, given size, recommend clinical follow-up as atypical lipomatous tumors may have a similar appearance. No soft tissue elements to confirm an aggressive/malignant etiology. 4. 4 mm LEFT basilar nodule. 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 Note however that given the history of reported malignancy, the Fleischner recommendations for pulmonary no dule follow-up cannot be applied. Comparison with any available outside imaging may be helpful to evaluate stability. 5. Note that operative changes in the LEFT gluteal region extend beyond the fie ld of view and cannot be evaluated. Note also that noncontrast CT is probably not sufficient for surveillance for recurrent/m etastatic neoplasm. Recommend follow-up per oncologic protocol. 6. Additional description as above. Reading Location: [id number]
--- OUTSIDE RECORDS SUMMARY | 2025-06-07 08:00 | XMS RPT_ITS | CCD ---
Author Organization [facility] [place] [facility] Team Providers Care Assorter Name Role Phone FAITH ELAM Unavailable Unavailable CARISA, DAESUNG Unavailable Unavailable CARISA, DAESUNG Unavailable Unavailable CARISA, DAESUNG Unavailable Unavailable Dr. Harley Harding Primary Care Provider [phone] Dr. Scotty Wasserman Emergency Provider Dr. Dave Ley Admit Provider Dr. Dave Ley Attending Provider Dr. Dave Ley Other Provider Dr. Sumit Bravo Other Provider Dr. Luis Drew Attending Provider Dr. Sumit Bravo Attending Provider Dr. Luis Drew Other Provider Dr. Dave Ley Referring Provider Dr. Harley Harding Referring Provider Dr. Harley Harding Primary Care Provider [phone] Dr. Harley Harding Referring Provider Dr. Luis Drew Attending Provider Dr. Luis Drew Other Provider Dr. Harley Harding Primary Care Provider [phone] Dr. Harley Harding Referring Provider Dr. Luis Drew Attending Provider [phone] Harley Harding Primary Care Provider Dr. Harley Harding Referring Provider Dr. Luis Drew Attending Provider Aj, Dr. Santiago Attending Provider Dr. Adi Holley Emergency Provider Nahum, Dr. Vital Admit Provider Nahum, Dr. Vital Other Provider Koram, Dr. Kristi Yu Attending Provider Kor, Dr. Kristi Yu Other Provider Dr. Harley Harding Primary Care Provider Mehdi NUNEZ, Dr. Randhawa Primary Care Provider Mehdi NUNEZ, Dr. Randhawa Attending Provider Mehdi NUNEZ, Dr. Randhawa Referring Provider Viki NUNEZ, Dr. Smith Attending Provider [phone] Viki NUNEZ, Dr. Smith Other Provider Viki NUNEZ, Dr. Smith Referring Provider Mehdi NUNEZ, Dr. Randhawa Primary Care Provider Mehdi NUNEZ, Dr. Randhawa Attending Provider Mehdi NUNEZ, Dr. Randhawa Referring Provider [phone] Jordan Milner Referring Unavailable AlfJordan Attending Unavailable Ranney, Christopher Primary Care Unavailable Ranney, Christopher Referring Unavailable Ranney, Christqianer Attending Unavailable Ranney, Christopher Primary Care Unavailable Ranney, Christopher Primary Care Unavailable Ranney, Christopher Referring Unavailable Ranney, Christqianer Attending Unavailable Ranney, Christopher Referring Unavailable Luis Drew Attending Unavailable Luis Drew Consulting Unavailable Ranney, Christopher Primary Care Unavailable Ranney, Christopher Primary Care Unavailable Ranney, Christopher Referring Unavailable Luis Drew Attending Unavailable Mikeney, Edis Attending Unavailable Ranney, Christopher Primary Care Unavailable Ranney, Christopher Referring Unavailable Ranney, Christqianer Attending Unavailable Ranney, Christopher Primary Care Unavailable Ron Fairbanks Attending Unavailable Ranney, Christopher Primary Care Unavailable Luis Drew Referring Unavailable Luis Drew Attending Unavailable Mehdi, Edis Primary Care Unavailable Mehdi, Edis Referring Unavailable Edis Harding Attending Unavailable Mehdi, Nicker Primary Care Unavailable Ranpetra, Christopher Primary Care Unavailable Ranpetra, Bullopher Referring Unavailable Luis Drew Attending Unavailable Mehdi, Edis Primary Care Unavailable Mehdi, Bullopher Referring Unavailable Bull Hardingophwalter Attending Unavailable Mehdi, Bullopher Referring Unavailable Edis Harding Attending Unavailable Mikeindianola, [facility] Primary Care Unavailable Mehdi, Bullophwalter Attending Unavailable Mehdi, Nicker Primary Care Unavailable Ranpetra, Bullopher Primary Care Unavailable Edis Harding Referring Unavailable Edis Harding Attending Unavailable Allergies Allergy Classification Reported Allergen(s) Allergy Type Date of Onset Reaction(s) Facility (1 source) etodolac; Translations: [ETODOLAC] Drug Allergy 5 [facility] Repository (1 source) latanoprost; Translations: [LATANOPROST] Drug Allergy 6 [facility] Repository (1 source) naproxen; Translations: [NAPROXEN] Drug Allergy 5 [facility] Repository (1 source) senna leaves; Translations: [SENNA] Drug Allergy 5 [facility] Repository (1 source) HYLAN G-F 20; Translations: [HYLAN G-F 20] Propensity to adverse reactions to drug (disorder) 6 [facility] Repository (20 sources) Morphine Drug Allergy 9 Inflammation of vein [facility] Comment on above: red streak up arm af ter receiving medication (1 source) Morphine Drug Allergy 4 [facility] Repository Medications Current Medications Medication Drug Class(es) Dates Sig (Normalized) Sig (Original) amLODIPine 5 mg oral tablet (20 sources) Dihydropyridine Calcium Channel Kate Start: 05-17-2024 take 1 tablet by mouth once daily Amlodipine 5 mg tablet Active 5 mg PO DAILY May 17, 2024 12:00am Start: 05-17-2022 End: 08-29-2023 take 1 tablet by mouth once daily Amlodipine 5 mg tablet Discontinued 5 mg PO DAILY May 17, 2022 12:00am August 29, 2023 1:25pm furosemide 40 mg oral tablet (13 sources) Loop Diuretic Start: 10-24-2023 End: 05-07-2024 take 1 tablet by mouth once daily as needed for edema Furosemide 40 mg tablet Active 40 mg PO DAILY NEEDED as needed for edema May 07, 2024 12:00am ibuprofen 400 mg oral tablet (2 sources) Nonsteroidal Anti-inflammatory Drug Start: 05-17-2024 take 1 tablet by mouth every six hours as needed for pain Ibuprofen 400 mg tablet Active 400 mg PO EVERY 6 HOURS as needed for fever or pain May 17, 2024 12:00am lactulose 667 mg/ml oral solution (4 sources) Osmotic Laxative Start: 07-04-2022 take 20 g by mouth twice daily Lactulose Active 20 GM PO TWICE A DAY July 04, 2022 12:00am lisinopril 10 mg oral tablet (20 sources) Angiotensin Converting Enzyme Inhibitor Start: 04-10-2019 take 4 tablets by mouth at bedtime Lisinopril 10 MG tablet Active 40 mg PO AT BEDTIME April 10, 2019 12:00am Start: 04-10-2019 take 40 mg by mouth at bedtime Lisinopril Active 40 MG PO AT BEDTIME April 10, 2019 12:00am Start: 04-10-2019 take 10 mg by mouth at bedtime Lisinopril Active 10 MG PO AT BEDTIME April 10, 2019 12:00am 24 hr metoprolol succinate 25 mg extended release oral tablet (11 sources) beta-Adrenergic Kate Start: 10-24-2023 take 2 tablets by mouth once daily Metoprolol Succinate 25 mg Tablet Extended Release 24 Hr Active 12.5 mg PO DAILY October 24, 2023 1:00am Start: 10-24-2023 take 12.5 mg by mout h once daily Metoprolol Succinate Active 12.5 MG PO DAILY October 24, 2023 1:00am ondansetron 4 mg disintegrating oral tablet (20 sources) Serotonin-3 Receptor Antagonist Start: 07-11-2024 take 1 tablet by mouth every six hours as needed for nausea Ondansetron 4 mg tablet,disintegrating Active 4 mg PO EVERY 6 HOURS NEEDED as needed for Nausea July 11, 2024 11:10pm Start: 07-08-2022 End: 03-29-2024 take 1 tablet by mouth every eight hours as needed for nausea Ondansetron 4 mg tablet,disintegrating Discontinued 4 mg PO EVERY 8 HOURS NEEDED as needed for Nausea July 08, 2022 12:00am March 29, 2024 1:40am simvastatin 20 mg oral tablet (20 sources) HMG-CoA Reductase Inhibitor Start: 10-22-2013 take 1 tablet by mouth at bedtime Simvastatin 20 MG tablet Active 20 mg PO AT BEDTIME October 22, 2013 1:00am preservative-free timolol 5 mg/ml ophthalmic solution (20 sources) beta-Adrenergic Kate Start: 11-01-2013 Timolol Maleate 1 DROP drops Active 1 NMA Each Eye DAILY November 01, 2013 1:00am Completed/Discontinued Medications Medication Drug Class(es) Dates Sig (Normalized) Sig (Original) acetaminophen 325 mg / HYDROcodone bitartrate 5 mg oral tablet (20 sources) Opioid Agonist Start: 03-25-2024 End: 05-07-2024 Hydrocodone-Acetami nophen 5-325 mg tablet Discontinued 1 {tbl} PO EVERY 6 HOURS NEEDED as needed for Pain 08 29March 25, 2024 May 07, 2024 1:06pm Start: 03-25-2024 take 1 tablet by kathleen th every six hours as needed Hydrocodone-Acetaminophen Active 1 TABLE T PO EVERY 6 HOURS NEEDED 08 29March 25, 2024 Start: 01-25-2019 End: 01-28-2019 Hydrocodone-Acetaminophen 1 TABLET tablet Discontinued 1 {tbl} PO EVERY 6 HOURS NEEDED as needed for Pain 10 January 25, 2019 1:00am January 27, 2019 1:00am January 28, 2019 1:11am Start: 01-25-2019 End: 01-28-2019 take 1 tablet by mouth every six hours as needed Hydrocodone-Acetaminophen Discontinued 1 TABLET PO EVERY 6 HOURS NEEDED 10 January 25, 2019 1:00am January 28, 2019 1:11am acetaminophen 325 mg / oxyCODONE hydrochloride 5 mg oral tablet (20 sources) Opioid Agonist Start: 03-29-2024 End: 11-05-2024 Oxycodone-Acetaminophen (Percocet) 5-325 mg tablet Discontinued 1 {tbl} PO EVERY 6 HOURS as needed for pain 20 March 294 Yosi 10th, 2024 10:51am Start: 10-29-2013 End: 11-05-2013 Oxycodone-Acetaminophen 1 TA BLET tablet Discontinued 1 - 2 {tbl} PO EVERY 6 HOURS NEEDED as needed for Pain 60 October 29, 2013 1:00am November 05, 2013 10:07am Start: 10-29-2013 End: 11-05-2013 take 1 tablet by mouth every six hours as needed Oxycodone-Acetaminophen Discontinued 1 - 2 TABLET PO EVERY 6 HOURS NEEDED 60 October 29, 2013 1:00am November 05, 2013 10:07am cefuroxime 500 mg oral tablet (4 sources) Cephalosporin Antibacterial Start: 03-25-2024 End: 05-07-2024 take 1 tablet by mouth twice daily Cefuroxime Axetil 500 mg tablet Discontinued 500 mg PO TWICE A DAY 14 March 25, 2024 12:00am May 07, 2024 1:04pm cholecalciferol 1.25 mg oral capsule (20 sources) Vitamin D Start: 07-05-2022 End: 08-29-2023 Cholecalciferol (Vitamin D3) 1,250 mcg (50,000 unit) capsule Discontinued 64[address] U PO HERNÁNDEZ July 05, 2022 12:00am August 29, 2023 1:25pm ciprofloxacin 500 mg oral tablet (2 sources) Quinolone Antimicrobial Start: 05-17-2024 End: 11-05-2024 take 1 tablet by mouth twice daily Ciprofloxacin Hcl (Cipro) 500 mg tablet Discontinued 500 mg PO TWICE A DAY May 17, 2024 12:00am November 05, 2024 10:50am dicyclomine hydrochloride 10 mg oral capsule (20 sources) Anticholinergic Start: 07-08-2022 End: 07-28-2022 take 2 capsules by mouth three times daily before mealtime Dicyclomine 10 mg capsule Discontinued 20 mg PO THREE TIMES DAILY BEFORE MEALS July 08, 2022 12:00am July 28, 2022 8:48am Start: 07-08-2022 End: 07-28-2022 take 20 mg by mouth three times daily before mealtime Dicyclomine Discontinued 20 MG PO THREE TIMES DAILY BEFORE MEALS July 08, 2022 12:00am July 28, 2022 8:48am esomeprazole 20 mg delayed release oral capsule (20 sources) Proton Pump Inhibitor Start: 10-30-2013 End: 11-09-2013 take 1 capsule by mouth once daily Esomeprazole Magnesium (Nexium) 20 MG capsule Discontinued 20 mg PO DAILY October 30, 2013 1:00am November 09, 2013 2:37pm ketorolac tromethamine 10 mg oral tablet (5 sources) Nonsteroidal Anti-inflammatory Drug, Cyclooxygenase Inhibitor Start: 03-29-2024 End: 11-05-2024 take 1 tablet by mouth every six hours as needed for pain Ketorolac 10 mg tablet Discontinued 10 mg PO EVERY 6 HOURS NEEDED as needed for pain May 07, 2024 12:00am November 05, 2024 10:50am meloxicam 7.5 mg oral tablet (13 sources) Nonsteroidal Anti-inflammatory Drug Start: 08-29-2023 End: 05-07-2024 take 1 tablet by mouth once daily Meloxicam 7.5 mg tablet Discontinued 7.5 mg PO DAILY August 29, 2023 12:00am May 07, 2024 1:06pm minocycline 50 mg oral capsule (20 sources) Tetracycline-class Drug Start: 10-22-2013 End: 08-29-2023 take 1 capsule by mouth once daily Minocycline (Minocin) 50 MG capsule Discontinued 50 mg PO DAILY October 22, 2013 1:00am August 29, 2023 1:25pm omeprazole 20 mg delayed release oral capsule (20 sources) Proton Pump Inhibitor Start: 07-07-2022 End: 05-17-2024 take 1 capsule by mouth once daily Omeprazole 20 mg capsule,delayed release(DR/EC) Discontinued 20 mg PO DAILY July 07, 2022 12:00am May 17, 2024 8:10am microencapsulated potassium chloride 20 meq extended release oral tablet (11 sources) Start: 10-24-2023 End: 03-29-2024 Potassium Chloride (Klor-Con M20) 20 mEq tablet,ER particles/crystal s Discontinued 20 meq PO DAILY October 24, 2023 1:00am March 29, 2024 1:40am promethazine hydrochloride 25 mg oral tablet (20 sources) Phenothiazine Start: 10-29-2013 End: 11-05-2013 take 1 tablet by mouth every six hours as needed for nausea Promethazine 25 MG tablet Discontinued 25 mg PO EVERY 6 HOURS NEEDED as needed for Nausea October 29, 2013 1:00am November 05, 2013 10:07am tamsulosin hydrochloride 0.4 mg oral capsule (3 sources) alpha-Adrenergic Kate Start: 03-29-2024 End: 05-07-2024 take 1 capsule by mouth at bedtime Tamsulosin (Flomax) 0.4 mg capsule Discontinued 0.4 mg PO AT BEDTIME March 29, 2024 12:00am May 07, 2024 1:05pm Problems Active Problems Problem Classification Problem Date Documented Da te Episodic/Chronic Abdominal pain (20 sources) Abdominal pain; Translations: [Unspecified abdominal pain] Onset: 5 07-16-2022 Episodic Calculus of urinary tract (7 sources) Ureteric stone; Translations: [Calculus of ureter] 03-25-2024 Episodic Chronic kidney disease (1 source) Chronic kidney disease; Translations: [Chronic kidney disease, stage 3 unspecified] Onset: Congestive heart failure; nonhypertensive (19 sources) Acute systolic heart failure; Translations: [Acute systolic (congestive) heart failure] Onset: 5 10-22-2023 Chronic Disorders of lipid metabolism (20 sources) Hyperlipidemia; Translations: [Hyperlipidemia, unspecified] 11-05-2013 Chronic Esophageal disorders (20 sources) Gastroesophageal reflux disease; Translations: [Gastro-esophageal reflux disease without esophagitis] Chronic Comment on above: Patient with infrequ ent reflux symptoms. However given her history of unexplained vomiting, would like to proceed with EGD investigation and obtain biopsies for H. pylori. Essential hypertension (4 sources) Hypertensive disorder; Translations: [Essential (primary) hypertension] 03-25-2024 Chronic Fluid and electrolyte disorders (20 sources) Dehydration; Translations: [Dehydration] 07-16-2022 Episodic Glaucoma (20 sources) Glaucoma; Translations: [Unspecified glaucoma] 11-05-2013 Chronic Headache; including migraine (20 sources) Headache; Translations: [Headache] 07-16-2022 Episodic Hypertension with complications and secondary hypertension (20 sources) Hypertensive urgency ; Translations: [Hypertensive urgency] Chronic Intestinal obstruction without hernia (20 sources) Paralytic ileus; Translations: [Paralytic ileus] Episodic Malaise and fatigue (20 sources) Asthenia; Translations: [Other malaise] 11-05-2013 Episodic Other diseases of bladder and urethra (1 source) Overactive bladder; Translations: [Overactive bladder] Onset: 5 Chronic Other gastrointestinal disorders (20 sources) Decreased stool caliber; Translations: [Other fecal abnormalities] 05-17-2022 Episodic Comment on above: This is a 86-year-ol d female who presents with a year and a half long history of decreased stool caliber. She was also recently admitted to the hospital with obstructive signs and symptoms. Would like to proceed with diagnostic colonoscopy as the patient has had no prior colonoscopy. In light of fact that she is experiencing decreased frequency of bowel movements, I have asked her to do 2 days of clears before completing her prep to better ensure an adequate prep for a thorough exam. Other gastrointestinal disorders (4 sources) Other fecal abnormalities; Translations: [Abnormal feces] Episodic Other gastrointestinal disorders (2 sources) Dysphagia; Translations: [Dysphagia, unspecified] 10-16-2024 Episodic Comment on above: By self-report alanna nt shares that she does not have a great deal of swallowing difficulty] yet the trapping of a barium tablet is suggestive of a possible mechanical cause and it has been over 2 years since her last EGD so I believe repeat EGD with biopsy and investigation of the GE junction is warranted Other nervous system disorders (20 sources) Postoperative pain ; Translations: [Other acute postprocedural pain] 11-10-2013 Episodic Other non-traumatic joint disorders (20 sources) Pain in unspecified knee; Translations: [Acute knee pain] 11-10-2013 Episodic Other nutritional; endocrine; and metabolic disorders (1 source) Hypercalcemia; Translations: [Hypercalcemia] Onset: 5 Chronic Other nutritional; endocrine; and metabolic disorders (1 source) Hypomagnesemia; Translations: [Hypomagnesemia] Onset: 4 Chronic Residual codes; unclassified (20 sources) Pain; Translations: [Pain, unspecified] 11-05-2013 Episodic Thyroid disorders (20 sources) Thyroid nodule; Translations: [Nontoxic single thyroid nodule] 08-29-2023 Chronic Comment on above: This is an 87-year-o ld female with a history of mild hypothyroidism, who presents for evaluation of bilateral thyroid nodularity after noting some neck swelling rather incidentally while looking in the mirror. Although patient has a very large right-sided thyroid lobe and a large left thyroid lobe, she denies any compressive symptomology per history. By exam (both physical exam and ultrasound) I did identify a moderately suspicious right-sided thyroid nodule which I recommended for biopsy given its hypoechoic echogenicity and solid composition. I found significantly smaller dimensions than that given by the reading radiologist for patient's right superior pole nodule. Lastly, on the left side I found a mixed composition nodule with significant cystic component. In order to both increase the sensitivity of my biopsy as well as hopefully provide some symptomatic improvement if possible this cystic fluid was aspirated for a total volume of 15 mL. I then proceeded with biopsy of this nodule per radiology's recommendation. Both the normal aspirates as well as the cystic fluid were submitted to pathology (latter for cytology). Patient was provided with wound care instructions. Unclassified (1 source) Unknown / UNK(Unknown) Onset: 7 Urinary tract infections (4 sources) Urinary tract infectious disease; Translations: [Urinary tract infection, site not specified] 03-25-2024 Episodic Viral infection (19 sources) Viral disease; Translations: [Viral infection, unspecified] 10-01-2022 Episodic Past or Other Problems Problem Classification Problem Date Documented Da te Episodic/Chronic Biliary tract disease (3 sources) Biliary calculus; Translations: [Calculus of gallbladder without cholecystitis without obstruction] Onset: 01-02-2025 10-16-2024 Episodic Comment on above: Cholelithiasis with a solitary calcified gallstone that appears stable at least since 2018. Exam is benign. Thus at this time I remain unconvinced that this will be the source of patient's symptoms. Cancer; other and unspecified primary (1 source) Personal history of malignant neoplasm of soft tissue; Translations: [Personal history of malignant neoplasm of soft tissue] Onset: 05-29-2017 Episodic Nausea and vomiting (20 sources) Nausea and vomiting; Translations: [Nausea with vomiting, unspecified] Onset: 07-18-2024 Episodic Comment on above: 'Multiple unexplaine d episodes of vomiting while patient is otherwise feeling well. As above, we will proceed with EGD simultaneous to colonoscopy. This statement was taken from a note authored by me in April 2022 and seems to suggest that patient has recurrence of an earlier problem despite this being presented as a entirely new issue. In eliciting patient's history it is difficult to see a clear etiology for this symptom and I would suggest her differential includes symptomatic cholelithiasis but also possible manifestation of a partial small bowel obstruction given our initial encounter in April 2022. Apart from obtaining imaging that would further suggest this latter possibility I find it reasonable to pursue additional workup for patient's gallbladder. Yet, I do have some skepticism about this being attributable to symptomatic cholelithiasis as patient appears to have evidence of stable cholelithiasis dating back to at least 2018 (and a smaller but still enlarged gallstone was seen even as far back as imaging from 2010). Additional items from patient's differential could include normal pressure hydrocephalus (with her reports of new onset incontinence and balance problems), but I see this is unlikely given a reassuring brain CT performed on July 11, 2024. With Mrs. Hamilton's retention of a barium tablet at the GE junction I do believe further investigation is warranted with EGD to ensure there is no mass lesion causing that entrapment and would plan to perform empiric biopsies for H. pylori at the same time. Other gastrointestinal disorders (1 source) Dysphagia, unspecified; Translations: [Dysphagia, unspecified] Onset: 12-11-2024 Episodic Results Test Name Value Interpretation Reference Range Facility [facility] Decub and/or Erecton 04-07-2025 Abd Inc Decub and/or Erect [facility] Imaging Services [address] [place] [id number] [employer] Decub and/or Erect MR#: [id number] Acct: [id number] Name: SHENA HAMILTON Rep #: [id number] : [id number] F [id number] From: Edi Heranndez MD PCP: Dr. Edis Harding MD Status: [facility] Study: Abd Inc Decub and/or Erect Date of Exam: 04/07 Exam# [id number] Ordering Dr: Edis Harding PROCEDURE: ABD INC DECUB AND/OR ERECT 04/07/2025 REASON FOR EXAM: UNSPECIFIED ABDOMINAL PAIN TECHNIQUE: Two views; single upright AP view, 2 supine AP views to include the entire abdomen and pelvis, 3 total images COMPARISON: 02/26/2024 FINDINGS: No free air identified. Mild gaseous distention of loops of bowel in the right and left upper abdomen with associated air-fluid levels unclear if this is colonic or small bowel. Overall there is a paucity of bowel gas in the mid to lower abdomen. If further clinical concern for possible obstruction may consider cross-sectional imaging. Partially calcified gallstone and an eggshell calcification previously noted to be associated with liver lesion again seen. Osteopenia. Leftward curvature thoracolumbar spine. Lumbar spondylosis/discogenic change. Numerous surgical clips left mid to lower abdomen. Aortoiliac atherosclerotic calcifications. RAD/[facility]d Inc Decub and/or Erect IMPRESSION: No free air identified. Mild gaseous distention of loops of bowel in the right and left upper abdomen with associated air-fluid levels unclear if this is colonic or small bowel. Overall there is a paucity of bowel gas in the mid to lower abdomen. If further clinical concern for possible obstruction may consider cross-sectional imaging. Reading Location: [id number] CC: Dr. Edis Harding MD Energy Advisor: Signed Normal [facility] Absolute lymphocyte countOrd ered By: Edis Harding on 04-07-2025 Lymphocytes Auto (Unsp spec) [#/Vol] 0.98 10*3/uL 0.83-4.51 [facility] Absolute neutrophil countOrd ered By: Edis Harding on 04-07-2025 Neutrophils (Bld) [#/Vol] 1.9 10*3/uL Low 2.0-7.7 [facility] Anion gap in Serum or Plasma Ordered By: Edis Harding on 04-07-2025 Anion gap [Moles/Vol] 12 mmol/L 5-15 [facility] Automated lymphocyte count a s percentage of total leukocytesOrdered By: Edis Harding on 04-07-2025 Lymphocytes/100 WBC Auto (Unsp spec) 28.6 % 19-41 [facility] BUN/creatinine ratioOrdered By: Edis Harding on 04-07-2025 Urea nitrogen/Creatinine [Mass ratio] 24.4 mg/mg High 10-20 [facility] Basophil percentageOrdered B y: Edis Harding on 04-07-2025 Basophils/100 WBC (Bld) 0.6 % 0-1 [facility] Bilirubin, totalOrdered By: Edis Harding on 04-07-2025 Bilirubin [Mass/Vol] 0.44 mg/dL 0.00-1.30 [facility] CBC W/Diff, Automatedon 03-27 Absolute Lymph 0.98 X10 3/uL Normal 0.83-4.51 [facility] Comment on above: Order Comment: Order Date: 04/07/25Order Info: 183- - CBCDOrder Info: [id number] - SED Performed By: #### P SSI #### [facility] [address] [place], [address] Absolute Neut 1.9 X10 3/uL Low 2.0-7.7 [facility] Comment on above: Order Comment: Order Date: 04/07/25Order Info: 183- - CBCDOrder Info: [id number] - SED Performed By: #### P SSI #### [facility] [address] [place], [address] Basophils/100 WBC (Bld) 0.6 % Normal 0-1 [facility] Comment on above: Order Comment: Order Date: 04/07/25Order Info: [id number] - CBCDOrder Info: [id number] - SED Performed By: #### P SSI #### [facility] [address] [place], [address] Eosinophils/100 WBC (Bld) 4.1 % Normal 0-5 [facility] Comment on above: Order Comment: Order Date: 04/07/25Order Info: 183- - CBCDOrder Info: [id number] - SED Performed By: #### P SSI #### [facility] [address] [place], [address] Erythrocyte distribution width (RBC) [Ratio] 13.3 % Normal 11.6-14.6 [facility] Comment on above: Order Comment: Order Date: 04/07/25Order Info: 183- - CBCDOrder Info: [id number] - SED Performed By: #### P SSI #### [facility] [address] [place], [place], [id number] (060) Hematocrit (Bld) [Volume fraction] 37.5 % Normal 37-47 [facility] Comment on above: Order Comment: Order Date: 04/07/25Order Info: 018- - CBCDOrder Info: [id number] - SED Performed By: #### P SSI #### [facility] [address] [place], [address] Hemoglobin (Bld) [Mass/Vol] 12.5 g/dL Normal 12.0-15.0 [facility] Comment on above: Order Comment: Order Date: 04/07/25Order Info: 018- - CBCDOrder Info: [id number] - SED Performed By: #### P SSI #### [facility] [address] [place], [place], [id number] ([address] IG% 0.300 Normal 0.0-0.9 [facility] Comment on above: Order Comment: Order Date: 04/07/25Order Info: [id number] - CBCDOrder Info: - SED Result Comment: IG% - Immature Granulocytes (promyelocytes, myelocytes and metamyelocytes) > 1% indicates that a LEFT SHIFT is Present. Performed By: #### P SSI #### [facility] [address] [place], [address] Lymphocytes/100 WBC (Bld) 28.6 % Normal 19-41 [facility] Comment on above: Order Comment: Order Date: 04/07/25Order Info: [id number] - CBCDOrder Info: [id number] - SED Performed By: #### P SSI #### [facility] [address] [place], [address] MCH (RBC) [Entitic mass] 29.3 pg Normal 27.0-32.0 [facility] Comment on above: Order Comment: Order Date: 04/07/25Order Info: 183- - CBCDOrder Info: [id number] - SED Performed By: #### P SSI #### [facility] [address] [place], [address] MCHC (RBC) [Mass/Vol] 33.3 g/dL Normal 32-36 [facility] Comment on above: Order Comment: Order Date: 04/07/25Order Info: 183- - CBCDOrder Info: [id number] - SED Performed By: #### P SSI #### [facility] [address] [place], [address] MCV (RBC) [Entitic vol] 87.8 fL Normal 81-99 [facility] Comment on above: Order Comment: Order Date: 04/07/25Order Info: 183- - CBCDOrder Info: [id number] - SED Performed By: #### P SSI #### [facility] [address] [place], [address] Monocytes/100 WBC (Bld) 11.1 % High 0-10 [facility] Comment on above: Order Comment: Order Date: 04/07/25Order Info: 183-11 - CBCDOrder Info: [id number] - SED Performed By: #### P SSI #### [facility] [address] [place], [address] Neutrophils/100 WBC (Bld) 55.3 % Normal 47-70 [facility] Comment on above: Order Comment: Order Date: 04/07/25Order Info: 183- - CBCDOrder Info: [id number] - SED Performed By: #### P SSI #### [facility] [address] [place], [address] Nucleated RBC (Bld) [#/Vol] 0 10*3/uL Normal 0-5 [facility] Comment on above: Order Comment: Order Date: 04/07/25Order Info: 183-1 - CBCDOrder Info: [id number] - SED Performed By: #### P SSI #### [facility] [address] [place], [address] Platelet mean volume (Bld) [Entitic vol] 10.5 fL Normal 6.2-12.0 [facility] Comment on above: Order Comment: Order Date: 04/07/25Order Info: 183-11 - CBCDOrder Info: [id number] - SED Performed By: #### P SSI #### [facility] [address] [place], [address] Platelets (Bld) [#/Vol] 287 10*3/uL Normal 150-450 [facility] Comment on above: Order Comment: Order Date: 04/07/25Order Info: 183-11 - CBCDOrder Info: [id number] - SED Performed By: #### P SSI #### [facility] [address] [place], [address] RBC (Bld) [#/Vol] 4.27 10*6/uL Normal 4.2-5.4 [facility] Comment on above: Order Comment: Order Date: 04/07/25Order Info: 183-11 - CBCDOrder Info: [id number] - SED Performed By: #### P SSI #### [facility] [address] [place], [address] RDW SD 42.9 fl Normal 35.1-43.9 [facility] Comment on above: Order Comment: Order Date: 04/07/25Order Info: 183-11 - CBCDOrder Info: [id number] - SED Performed By: #### P SSI #### [facility] [address] [place], [address] WBC (Bld) [#/Vol] 3.4 10*3/uL Low 4.4-11.0 [facility] Comment on above: Order Comment: Order Date: 04/07/25Order Info: 183- - CBCDOrder Info: [id number] - SED Performed By: #### P SSI #### [facility] [address] [place], [place], [address] CRPon 04-07-2025 C-REACTIVE PROT 3.52 mg/L High 0.0-3.0 [facility] Comment on above: Order Comment: Order Date: 04/07/25Order Info: [id number] - CMPOrder Info: [id number] - CRP Performed By: #### P SSI #### [facility] [address] [place], [place], [address] Carbon dioxide, total [Moles /volume] in Central venous bloodOrdered By: Edis Harding on 04-07-2025 CO2 [Moles/Vol] 22.5 mmol/L 21.0-32.0 [facility] Chloride assayOrdered By: Marisol Harding on 04-07-2025 Chloride [Moles/Vol] 105 mmol/L 98-108 [facility] Comprehensive Metabolic Prof ilon 04-07-2025 Albumin [Mass/Vol] 4.0 g/dL Normal 3.4-4.8 [facility] Comment on above: Order Comment: Order Date: 04/07/25Order Info: [id number] - CMPOrder Info: [id number] - CRP Performed By: #### P SSI #### [facility] [address] [place], [place], [address] Albumin/Globulin [Mass ratio] 1.7 {ratio} Normal 0.9-2.4 [facility] Comment on above: Order Comment: Order Date: 04/07/25Order Info: [id number] - CMPOrder Info: [id number] - CRP Performed By: #### P SSI #### [facility] [address] [place], [place], [address] ALK PHOS 77 U/L Normal 35-104 [facility] Comment on above: Order Comment: Order Date: 04/07/25Order Info: [id number] - CMPOrder Info: [id number] - CRP Performed By: #### P SSI #### [facility] [address] [place], [address] ALT [Catalytic activity/Vol] 9 U/L Normal <=34 [facility] Comment on above: Order Comment: Order Date: 04/07/25Order Info: [id number] - CMPOrder Info: [id number] - CRP Performed By: #### P SSI #### [facility] [address] [place], [address] AST [Catalytic activity/Vol] 18 U/L Normal <=31 [facility] Comment on above: Order Comment: Order Date: 04/07/25Order Info: [id number] - CMPOrder Info: [id number] - CRP Performed By: #### P SSI #### [facility] [address] [place], [address] Bilirubin [Mass/Vol] 0.44 mg/dL Normal 0.00-1.30 [facility] Comment on above: Order Comment: Order Date: 04/07/25Order Info: [id number] - CMPOrder Info: [id number] - CRP Performed By: #### P SSI #### [facility] [address] [place], [address] BUN/CRE 24.4 RATIO High 10-20 [facility] Comment on above: Order Comment: Order Date: 04/07/25Order Info: [id number] - CMPOrder Info: [id number] - CRP Performed By: #### P SSI #### [facility] [address] [place], [address] Calcium [Mass/Vol] 9.9 mg/dL Normal 7.6-11.0 [facility] Comment on above: Order Comment: Order Date: 04/07/25Order Info: [id number] - CMPOrder Info: [id number] - CRP Performed By: #### P SSI #### [facility] [address] [place], [address] Chloride [Moles/Vol] 105 mmol/L Normal 98-108 [facility] Comment on above: Order Comment: Order Date: 04/07/25Order Info: [id number] - CMPOrder Info: [id number] - CRP Performed By: #### P SSI #### [facility] [address] [place], [address] CO2 [Moles/Vol] 22.5 mmol/L Normal 21.0-32.0 [facility] Comment on above: Order Comment: Order Date: 04/07/25Order Info: 86-1 - CMPOrder Info: [id number] - CRP Performed By: #### P SSI #### [facility] [address] [place], [place], [address] ([address] Creatinine [Mass/Vol] 0.89 mg/dL Normal 0.70-1.20 [facility] Comment on above: Order Comment: Order Date: 04/07/25Order Info: [id number] - CMPOrder Info: [id number] - CRP Performed By: #### P SSI #### [facility] [address] [place], [address] GAP 12 Normal 5-15 [facility] Comment on above: Order Comment: Order Date: 04/07/25Order Info: [id number] - CMPOrder Info: [id number] - CRP Performed By: #### P SSI #### [facility] [address] [place], [address] GFR/1.73 sq M.predicted among non-blacks MDRD (S/P/Bld) [Vol rate/Area] 63 mL/min/{1.73_m2} Normal >60 [facility] Comment on above: Order Comment: Order Date: 04/07/25Order Info: [id number] - CMPOrder Info: [id number] - CRP Result Comment: mL/m in/1.73m2 CKD-EPI Creatinine Equation (2020) Performed By: #### P SSI #### [facility] [address] [place], [address] Globulin (S) [Mass/Vol] 2.4 g/dL Normal 2.2-4.2 [facility] Comment on above: Order Comment: Order Date: 04/07/25Order Info: [id number] - CMPOrder Info: [id number] - CRP Performed By: #### P SSI #### [facility] [address] [place], [address] Glucose [Mass/Vol] 79 mg/dL Normal 70-99 [facility] Comment on above: Order Comment: Order Date: 04/07/25Order Info: [id number] - CMPOrder Info: [id number] - CRP Performed By: #### P SSI #### [facility] [address] [place], [address] Potassium [Moles/Vol] 3.9 mmol/L Normal 3.3-5.1 [facility] Comment on above: Order Comment: Order Date: 04/07/25Order Info: [id number] - CMPOrder Info: [id number] - CRP Performed By: #### P SSI #### [facility] [address] [place], [address] Sodium [Moles/Vol] 139 mmol/L Normal 133-145 [facility] Comment on above: Order Comment: Order Date: 04/07/25Order Info: [id number] - CMPOrder Info: [id number] - CRP Performed By: #### P SSI #### [facility] [address] [place], [address] T PROT 6.4 g/dL Normal 5.9-8.4 [facility] Comment on above: Order Comment: Order Date: 04/07/25Order Info: [id number] - CMPOrder Info: [id number] - CRP Performed By: #### P SSI #### [facility] [address] [place], [address] Urea nitrogen [Mass/Vol] 22 mg/dL High 4-19 [facility] Comment on above: Order Comment: Order Date: 04/07/25Order Info: [id number] - CMPOrder Info: [id number] - CRP Performed By: #### P SSI #### [facility] [address] [place], [address] Eosinophil percentageOrdered By: Edis Harding on 04-07-2025 Eosinophils/100 WBC (Bld) 4.1 % 0-5 [facility] Erythrocyte Sed Rateon 04-07 SED RATE 2 mm/hr Normal 0-30 [facility] Comment on above: Order Comment: Order Date: 04/07/25Order Info: [id number] - CBCDOrder Info: [id number] - SED Performed By: #### P SSI #### [facility] [address] [place], [place], [address] Erythrocyte distribution wid th ratioOrdered By: Edis Harding on 04-07-2025 Erythrocyte distribution width (RBC) [Ratio] 13.3 % 11.6-14.6 [facility] Erythrocyte distribution wid th standard deviationOrdered By: Edis Harding on 04-07-2025 Erythrocyte distribution width (RBC) [Ratio] 42.9 fl 35.1-43.9 [facility] Erythrocyte sedimentation ra teOrdered By: Edis Harding on 04-07-2025 ESR (Bld) [Velocity] 2 mm/h 0-30 [facility] Glomerular filtration rate ( GFR) estimation/1.73 sq m using serum, plasma, or whole bOrdered By: Edis Harding on 04-07-2025 GFR/1.73 sq M.predicted among non-blacks MDRD (S/P/Bld) [Vol rate/Area] 63 mL/min/{1.73_m2} >60 [facility] Comment on above: mL/min/1.73m2 CKD-EP I Creatinine Equation (2020) Hematocrit Auto (Bld) [Volum e fraction]Ordered By: Edis Harding on 04-07-2025 Hematocrit (Bld) [Volume fraction] 37.5 % 37-47 [facility] Hemoglobin measurementOrdere d By: Edis Harding on 04-07-2025 Hemoglobin (Bld) [Mass/Vol] 12.5 g/dL 12.0-15.0 [facility] Immature granulocytes/100 WB C Auto (Bld)Ordered By: Edis Harding on 04-07-2025 Immature granulocytes/100 WBC (Bld) 0.300 % 0.0-0.9 [facility] Comment on above: IG% - Immature Granu locytes (promyelocytes, myelocytes and metamyelocytes) > 1% indicates that a LEFT SHIFT is Present. Laboratory - Chemistry and C hemistry - challengeOrdered By: Edis Harding on 04-07-2025 AST [Catalytic activity/Vol] 18 U/L <32 [facility] MCV (mean corpuscular volume ) determinationOrdered By: Edis Harding on 04-07-2025 MCV (RBC) [Entitic vol] 87.8 fL 81-99 [facility] Mean corpuscular hemoglobin (MCH) determinationOrdered By: Edis Harding on 04-07-2025 MCH (RBC) [Entitic mass] 29.3 pg 27.0-32.0 [facility] Mean corpuscular hemoglobin concentration (MCHC) determinationOrdered By: Edis Harding on 04-07-2025 MCHC (RBC) [Mass/Vol] 33.3 g/dL 32-36 [facility] Mean platelet volume determi nationOrdered By: Edis Harding on 04-07-2025 Platelet mean volume (Bld) [Entitic vol] 10.5 fL 6.2-12.0 [facility] Monocyte percentageOrdered B y: Edis Harding on 04-07-2025 Monocytes/100 WBC (Bld) 11.1 % High 0-10 [facility] Neutrophil percentageOrdered By: Edis Harding on 04-07-2025 Neutrophils/100 WBC (Bld) 55.3 % 47-70 [facility] Nucleated red blood cell per centageOrdered By: Edis Harding on 04-07-2025 Nucleated RBC/100 WBC (Bld) [Ratio] 0 % 0-5 [facility] Platelet countOrdered By: Marisol Harding on 04-07-2025 Platelets (Bld) [#/Vol] 287 10*3/uL 150-450 [facility] Potassium measurement (mass/ volume)Ordered By: Edis Harding on 04-07-2025 Potassium (Unsp spec) [Mass/Vol] 3.9 mmol/L 3.3-5.1 [facility] RBC Auto (Bld) [#/Vol]Ordere d By: Edis Harding on 04-07-2025 RBC (Bld) [#/Vol] 4.27 10*6/uL 4.2-5.4 [facility] Serum creatinine measurement (mass/volume)Ordered By: Edis Harding on 04-07-2025 Creatinine [Mass/Vol] 0.89 mg/dL 0.70-1.20 [facility] Serum globulin measurementOr dered By: Edis Harding on 04-07-2025 Globulin (S) [Mass/Vol] 2.4 g/dL 2.2-4.2 [facility] Serum glucose measurement (m ass/volume)Ordered By: Edis Harding on 04-07-2025 Glucose [Mass/Vol] 79 mg/dL 70-99 [facility] Serum or plasma C reactive p rotein measurement (mass/volume)Ordered By: Edis Harding on 04-07-2025 CRP [Mass/Vol] 3.52 mg/L High 0.0-3.0 [facility] Serum or plasma alanine jordan otransferase (ALT) measurementOrdered By: Edis Harding on 04-07-2025 ALT [Catalytic activity/Vol] 9 U/L <35 [facility] Serum or plasma albumin fina urement (mass/volume)Ordered By: Edis Harding on 04-07-2025 Albumin [Mass/Vol] 4.0 g/dL 3.4-4.8 [facility] Serum or plasma albumin/glob ulin mass ratioOrdered By: Edis Harding on 04-07-2025 Albumin/Globulin [Mass ratio] 1.7 {ratio} 0.9-2.4 [facility] Serum or plasma alkaline geoffrey sphatase measurementOrdered By: Edis Harding on 04-07-2025 ALP [Catalytic activity/Vol] 77 U/L 35-104 [facility] Serum or plasma calcium fina urement (mass/volume)Ordered By: Edis Harding on 04-07-2025 Calcium [Mass/Vol] 9.9 mg/dL 7.6-11.0 [facility] Serum or plasma urea nitroge n measurement (mass/volume)Ordered By: Edis Harding on 04-07-2025 Urea nitrogen [Mass/Vol] 22 mg/dL High 4-19 [facility] Sodium levelOrdered By: Marlena Harding on 04-07-2025 Sodium [Moles/Vol] 139 mmol/L 133-145 [facility] Total proteinOrdered By: Lowell istopher Harding on 04-07-2025 Protein [Mass/Vol] 6.4 g/dL 5.9-8.4 [facility] White blood cell (WBC) count Ordered By: Edis Harding on 04-07-2025 WBC (Bld) [#/Vol] 3.4 10*3/uL Low 4.4-11.0 [facility] Inital Evaluation (1) - PTon 03-26-2025 Inital Evaluation (1) - PT [facility] [address] [place] [id number] / REHABILITATION SERVICES INITIAL EVALUATION MR#: [id number] Acct: [id number] Name: SHENA HAMILTON Rep #: [id number] : 1935 89 From: Hector Holden PT, ATC Referring Dr.: Dr. Edis Harding MD Status: REG RCR Insurance: [facility] HMO SELF PAY INSURANCE Patient's Visit Information Visit Information Visit Information: SHENA HAMILTON is a 89 year old F referred to Physical Therapy by Dr. Edis Harding MD with a diagnosis of Gait instability. Date of Evaluation: 03/26/25 Physical Therapist: Hector Holden PT, ATC Visit Plan Frequency: 2-3x /Week Duration: 4-6 Weeks Plan: Balance and proprio, gait training, B LE strengthening, nustep, and HEP Subjective Subjective: Pt reports she has had impaired balance for a chronic time period. Pt notes she had PT a couple months ago which was really helpful, but then notes she became very ill for a long period of time consisting of flu, and covid. pt notes she had to stop therapy at that time secondary to her illness. Pt notes she thinks her balance has regressed since stopping therapy. Pt notes she walks with a walker most of the time. Pt enters clinic today using a SPC, but requires 1 CGA to aid with ambulation. Pt notes this has been the worst year of my life with my health just falling apart. Pt reports she is here today to continue with hopes of improving her balance. Pt reports she has only had a Hx of one fall, which was a long time ago. Pt reports she has good sensation in her feet. Pt reports she is not currently in pain today. Pt has steps to enter her house which she mostly negotiates one step at a time. Pt reports her balance is the absolute worst with descending ramps Objective Objective: Neuro: B LE sensation is WNL to light touch. MMT: B LE's are grossly 4/5 throughout when compared bilaterally TU sec FGA: Balance/Special Test Scores Functional Gait Assessment Score: 9 % Disability: 70.0000 Lower Extremity Functional Score: 31 Goals Goal 1:: Pt will perform the TUG in under 15 seconds to aid with gait efficiency Goal Time Frame: 4-6 Weeks Goal 2:: Pt will improve her FGA score x 5-10 points to aid with preventing future falls Goal Time Frame: 4-6 Weeks Goal 3:: Pt will be I with HEP in 4 weeks Goal Time Frame: 4-6 Weeks Goal 4:: Pt will ambulate greater than 1000 feet to aide with community ambulation Goal Time Frame: 4-6 Weeks Rehabilitation Potential Physical Therapy Diagnosis: Pt has B LE weakness, gait instability, and gait abnormalities secondary to debilitation Rehabilitation Potential: Good Anticipated Interventions Patient/Client Instruction: Educate patient on: Condition and Plan of Care For the Purpose of:: To improve self management Therapeutic Exercise to Include: Strength training, Endurance training, Balance training, Gait and locomotor training and Dynamic Lumbar Stabilization For the Purpose of:: To decrease pain, To increase ROM and To improve muscle performance and motor function Cryotherapy (ice pack, ice massage): Yes For the Purpose of:: To decrease pain Text: Thank you for the opportunity to evaluate your patient. For Medicare and Medicare HMO plans, please review the plan of care and approve it. It will need to be FAXED BACK to us at [phone] for Medicare purposes. For Medicare only, by signing this I certify the plan of care. Please let me know if there are questions or concerns regarding this plan of care. Physician Signature: Date: ____ 03/26/25 1541 CC: Dr. Edis Harding MD [facility] Signed Normal [facility] Inital Evaluation (1) - PT [facility] [address] [place] [address]. [address] [place] [address] / REHABILITATION SERVICES INITIAL EVALUATION MR#: [id number] Acct: [id number] Name: SHENA HAMILTON Rep #: [id number] : 1935 89 From: Hector Holden PT, ATC Referring Dr.: Dr. Edis Harding MD Status: REG RCR Insurance: [facility] [employer] HMO SELF PAY INSURANCE Patient's Visit Information Visit Information Visit Information: SHENA HAMILTON is a 89 year old F referred to Physical Therapy by Dr. Edis Harding MD with a diagnosis of Gait instability. Date of Evaluation: 03/26/25 Physical Therapist: Hector Holden, PT, ATC Visit Plan Frequency: 2-3x /Week Duration: 4-6 Weeks Plan: Balance and proprio, gait training, B LE strengthening, nustep, and HEP Subjective Subjective: Pt reports she has had impaired balance for a chronic time period. Pt notes she had PT a couple months ago which was really helpful, but then notes she became very ill for a long period of time consisting of flu, and covid. pt notes she had to stop therapy at that time secondary to her illness. Pt notes she thinks her balance has regressed since stopping therapy. Pt notes she walks with a walker most of the time. Pt enters clinic today using a SPC, but requires 1 CGA to aid with ambulation. Pt notes this has been the worst year of my life with my health just falling apart. Pt reports she is here today to continue with hopes of improving her balance. Pt reports she has only had a Hx of one fall, which was a long time ago. Pt reports she has good sensation in her feet. Pt reports she is not currently in pain today. Pt has steps to enter her house which she mostly negotiates one step at a time. Pt reports her balance is the absolute worst with descending ramps Objective Objective: Neuro: B LE sensation is WNL to light touch. MMT: B LE's are grossly 4/5 throughout when compared bilaterally TU sec FGA: Balance/Special Test Scores Functional Gait Assessment Score: 9 % Disability: 70.0000 Lower Extremity Functional Score: 31 Goals Goal 1:: Pt will perform the TUG in under 15 seconds to aid with gait efficiency Goal Time Frame: 4-6 Weeks Goal 2:: Pt will improve her FGA score x 5-10 points to aid with preventing future falls Goal Time Frame: 4-6 Weeks Goal 3:: Pt will be I with HEP in 4 weeks Goal Time Frame: 4-6 Weeks Goal 4:: Pt will ambulate greater than 1000 feet to aide with community ambulation Goal Time Frame: 4-6 Weeks Rehabilitation Potential Physical Therapy Diagnosis: Pt has B LE weakness, gait instability, and gait abnormalities secondary to debilitation Rehabilitation Potential: Good Anticipated Interventions Patient/Client Instruction: Educate patient on: Condition and Plan of Care For the Purpose of:: To improve self management Therapeutic Exercise to Include: Strength training, Endurance training, Balance training, Gait and locomotor training and Dynamic Lumbar Stabilization For the Purpose of:: To decrease pain, To increase ROM and To improve muscle performance and motor function Cryotherapy (ice pack, ice massage): Yes For the Purpose of:: To decrease pain Text: Thank you for the opportunity to evaluate your patient. For Medicare and Medicare HMO plans, please review the plan of care and approve it. It will need to be FAXED BACK to us at [phone] for Medicare purposes. For Medicare only, by signing this I certify the plan of care. Please let me know if there are questions or concerns regarding this plan of care. Physician Signature: Date: ____ 03/26/25 1540 CC: Dr. Edis Harding MD [facility] Signed Normal [facility] Absolute lymphocyte countOrd ered By: Edis Harding on 03-24-2025 Lymphocytes Auto (Unsp spec) [#/Vol] 1.23 10*3/uL 0.83-4.51 [facility] Absolute neutrophil countOrd ered By: Edis Harding on 03-24-2025 Neutrophils (Bld) [#/Vol] 2.4 10*3/uL 2.0-7.7 [facility] Anion gap in Serum or Plasma Ordered By: Edis Harding on 03-24-2025 Anion gap [Moles/Vol] 11 mmol/L 5-15 [facility] Automated lymphocyte count a s percentage of total leukocytesOrdered By: Edis Harding on 03-24-2025 Lymphocytes/100 WBC Auto (Unsp spec) 29.9 % - [facility] BUN/creatinine ratioOrdered By: Edis Harding on 03-24-2025 Urea nitrogen/Creatinine [Mass ratio] 30.0 mg/mg High - [facility] Basic Metabolic Profile (BMP )on 03-24-2025 BUN/CRE 30.0 RATIO High 10- [facility] Comment on above: Order Comment: Order Date: 10/22/24 Order Info: 0565-1 - PTHIN Performed By: #### L 506.1000, L500.2500, L501.5200, L509.1000 #### [facility] Laboratory [facility] [place], [address] Calcium [Mass/Vol] 9.9 mg/dL Normal 7.6-11.0 [facility] Comment on above: Order Comment: Order Date: 10/22/24 Order Info: 0565-1 - PTHIN Performed By: #### L 506.1000, L500.2500, L501.5200, L509.1000 #### [facility] [address] [place], [address] Chloride [Moles/Vol] 107 mmol/L Normal 98-108 [facility] Comment on above: Order Comment: Order Date: 10/22/24 Order Info: 0565-1 - PTHIN Performed By: #### L 506.1000, L500.2500, L501.5200, L509.1000 #### [facility] [address] [place], [address] CO2 [Moles/Vol] 23.6 mmol/L Normal 21.0-32.0 [facility] Comment on above: Order Comment: Order Date: 10/22/24 Order Info: 0565-1 - PTHIN Performed By: #### L 506.1000, L500.2500, L501.5200, L509.1000 #### [facility] [address] [place], [address] Creatinine [Mass/Vol] 0.81 mg/dL Normal 0.70-1.20 [facility] Comment on above: Order Comment: Order Date: 10/22/24 Order Info: 0565-1 - PTHIN Performed By: #### L 506.1000, L500.2500, L501.5200, L509.1000 #### [facility] [address] [place], [address] GAP 11 Normal 5-15 [facility] Comment on above: Order Comment: Order Date: 10/22/24 Order Info: 0565-1 - PTHIN Performed By: #### L 506.1000, L500.2500, L501.5200, L509.1000 #### [facility] [address] [place], [address] GFR/1.73 sq M.predicted among non-blacks MDRD (S/P/Bld) [Vol rate/Area] 70 mL/min/{1.73_m2} Normal >60 [facility] Comment on above: Order Comment: Order Date: 10/22/24 Order Info: 0565-1 - PTHIN Result Comment: mL/m in/1.73m2 CKD-EPI Creatinine Equation (2020) Performed By: #### L 506.1000, L500.2500, L501.5200, L509.1000 #### [facility] [address] [place], [address] Glucose [Mass/Vol] 92 mg/dL Normal 70-99 [facility] Comment on above: Order Comment: Order Date: 10/22/24 Order Info: 0565-1 - PTHIN Performed By: #### L 506.1000, L500.2500, L501.5200, L509.1000 #### [facility] [address] [place], [address] Potassium [Moles/Vol] 4.1 mmol/L Normal 3.3-5.1 [facility] Comment on above: Order Comment: Order Date: 10/22/24 Order Info: 0565-1 - PTHIN Performed By: #### L 506.1000, L500.2500, L501.5200, L509.1000 #### [facility] [address] [place], [address] Sodium [Moles/Vol] 142 mmol/L Normal 133-145 [facility] Comment on above: Order Comment: Order Date: 10/22/24 Order Info: 0565-1 - PTHIN Performed By: #### L 506.1000, L500.2500, L501.5200, L509.1000 #### [facility] [address] [place], [address] Urea nitrogen [Mass/Vol] 24 mg/dL High 4-19 [facility] Comment on above: Order Comment: Order Date: 10/22/24 Order Info: 0565-1 - PTHIN Performed By: #### L 506.1000, L500.2500, L501.5200, L509.1000 #### [facility] [address] [place], [address] Basophil percentageOrdered B y: Edis Harding on 03-24-2025 Basophils/100 WBC (Bld) 0.5 % 0-1 [facility] CBC W/Diff, Automatedon 02-26 Absolute Lymph 1.23 X10 3/uL Normal 0.83-4.51 [facility] Comment on above: Order Comment: Order Date: 03/24/25 Order Info: 0184-1 - CBCD Performed By: #### L 100.0100 #### [facility] [address] [place], [address] Absolute Neut 2.4 X10 3/uL Normal 2.0-7.7 [facility] Comment on above: Order Comment: Order Date: 03/24/25 Order Info: 0184-1 - CBCD Performed By: #### L 100.0100 #### [facility] [address] [place], [address] Basophils/100 WBC (Bld) 0.5 % Normal 0-1 [facility] Comment on above: Order Comment: Order Date: 03/24/25 Order Info: 0184-1 - CBCD Performed By: #### L 100.0100 #### [facility] [address] [place], [address] Eosinophils/100 WBC (Bld) 4.6 % Normal 0-5 [facility] Comment on above: Order Comment: Order Date: 03/24/25 Order Info: 0184-1 - CBCD Performed By: #### L 100.0100 #### [facility] [address] [place], [address] Erythrocyte distribution width (RBC) [Ratio] 13.8 % Normal 11.6-14.6 [facility] Comment on above: Order Comment: Order Date: 03/24/25 Order Info: 0184-1 - CBCD Performed By: #### L 100.0100 #### [facility] [address] [place], [address] Hematocrit (Bld) [Volume fraction] 39.2 % Normal 37-47 [facility] Comment on above: Order Comment: Order Date: 03/24/25 Order Info: 018- - CBCD Performed By: #### L 100.0100 #### [facility] [address] [place], [address] Hemoglobin (Bld) [Mass/Vol] 12.9 g/dL Normal 12.0-15.0 [facility] Comment on above: Order Comment: Order Date: 03/24/25 Order Info: 018- - CBCD Performed By: #### L 100.0100 #### [facility] [address] [place], [address] IG% 0.500 Normal 0.0-0.9 [facility] Comment on above: Order Comment: Order Date: 03/24/25 Order Info: 018- - CBCD Result Comment: IG% - Immature Granulocytes (promyelocytes, myelocytes and metamyelocytes) > 1% indicates that a LEFT SHIFT is Present. Performed By: #### L 100.0100 #### [facility] [address] [place], [address] Lymphocytes/100 WBC (Bld) 29.9 % Normal 19-41 [facility] Comment on above: Order Comment: Order Date: 03/24/25 Order Info: 018- - CBCD Performed By: #### L 100.0100 #### [facility] [address] [place], [address] MCH (RBC) [Entitic mass] 29.1 pg Normal 27.0-32.0 [facility] Comment on above: Order Comment: Order Date: 03/24/25 Order Info: 018- - CBCD Performed By: #### L 100.0100 #### [facility] [address] [place], [address] MCHC (RBC) [Mass/Vol] 32.9 g/dL Normal 32-36 [facility] Comment on above: Order Comment: Order Date: 03/24/25 Order Info: 0184-1 - CBCD Performed By: #### L 100.0100 #### [facility] [address] [place], [address] MCV (RBC) [Entitic vol] 88.3 fL Normal 81-99 [facility] Comment on above: Order Comment: Order Date: 03/24/25 Order Info: 0184-1 - CBCD Performed By: #### L 100.0100 #### [facility] [address] [place], [address] Monocytes/100 WBC (Bld) 6.8 % Normal 0-10 [facility] Comment on above: Order Comment: Order Date: 03/24/25 Order Info: 0184-1 - CBCD Performed By: #### L 100.0100 #### [facility] [address] [place], [address] Neutrophils/100 WBC (Bld) 57.7 % Normal 47-70 [facility] Comment on above: Order Comment: Order Date: 03/24/25 Order Info: 0184-1 - CBCD Performed By: #### L 100.0100 #### [facility] [address] [place], [address] Nucleated RBC (Bld) [#/Vol] 0 10*3/uL Normal 0-5 [facility] Comment on above: Order Comment: Order Date: 03/24/25 Order Info: 0184-1 - CBCD Performed By: #### L 100.0100 #### [facility] [address] [place], [address] Platelet mean volume (Bld) [Entitic vol] 10.3 fL Normal 6.2-12.0 [facility] Comment on above: Order Comment: Order Date: 03/24/25 Order Info: 0184-1 - CBCD Performed By: #### L 100.0100 #### [facility] [address] [place], [address] Platelets (Bld) [#/Vol] 273 10*3/uL Normal 150-450 [facility] Comment on above: Order Comment: Order Date: 03/24/25 Order Info: 0184-1 - CBCD Performed By: #### L 100.0100 #### [facility] [address] [place], [address] RBC (Bld) [#/Vol] 4.44 10*6/uL Normal 4.2-5.4 [facility] Comment on above: Order Comment: Order Date: 03/24/25 Order Info: 0184-1 - CBCD Performed By: #### L 100.0100 #### [facility] [address] [place], [address] RDW SD 44.5 fl High 35.1-43.9 [facility] Comment on above: Order Comment: Order Date: 03/24/25 Order Info: 0184-1 - CBCD Performed By: #### L 100.0100 #### [facility] [address] [place], [address] WBC (Bld) [#/Vol] 4.1 10*3/uL Low 4.4-11.0 [facility] Comment on above: Order Comment: Order Date: 03/24/25 Order Info: 0184-1 - CBCD Performed By: #### L 100.0100 #### [facility] [address] [place], [address] Calculated very low density lipoprotein (VLDL) cholesterol measurementOrdered By: Edis Harding on 03-24-2025 Calculated very low density lipoprotein (VLDL) cholesterol measurement 13 mg/dL 5-40 [facility] Carbon dioxide, total [Moles /volume] in Central venous bloodOrdered By: Edis Harding on 03-24-2025 CO2 [Moles/Vol] 23.6 mmol/L 21.0-32.0 [facility] Chloride assayOrdered By: Marisol Harding on 03-24-2025 Chloride [Moles/Vol] 107 mmol/L 98-108 [facility] Eosinophil percentageOrdered By: Edis Harding on 03-24-2025 Eosinophils/100 WBC (Bld) 4.6 % 0-5 [facility] Erythrocyte distribution wid th ratioOrdered By: Edis Harding on 03-24-2025 Erythrocyte distribution width (RBC) [Ratio] 13.8 % 11.6-14.6 [facility] Erythrocyte distribution wid th standard deviationOrdered By: Edis Harding on 03-24-2025 Erythrocyte distribution width (RBC) [Ratio] 44.5 fl High 35.1-43.9 [facility] Glomerular filtration rate ( GFR) estimation/1.73 sq m using serum, plasma, or whole bOrdered By: Edis Harding on 03-24-2025 GFR/1.73 sq M.predicted among non-blacks MDRD (S/P/Bld) [Vol rate/Area] 70 mL/min/{1.73_m2} >60 [facility] Comment on above: mL/min/1.73m2 CKD-EP I Creatinine Equation (2020) Hematocrit Auto (Bld) [Volum e fraction]Ordered By: Edis Harding on 03-24-2025 Hematocrit (Bld) [Volume fraction] 39.2 % 37-47 [facility] Hemoglobin measurementOrdere d By: Edis Harding on 03-24-2025 Hemoglobin (Bld) [Mass/Vol] 12.9 g/dL 12.0-15.0 [facility] Immature granulocytes/100 WB C Auto (Bld)Ordered By: Edis Harding on 03-24-2025 Immature granulocytes/100 WBC (Bld) 0.500 % 0.0-0.9 [facility] Comment on above: IG% - Immature Granu locytes (promyelocytes, myelocytes and metamyelocytes) > 1% indicates that a LEFT SHIFT is Present. L503.7505on 03-24-2025 Natriuretic peptide B (Bld) [Mass/Vol] 369 pg/mL Normal <=1800 [facility] Comment on above: Order Comment: Order Date: 03/24/25 Order Info: 666- - BMP Order Info: [id number] - LIPID Order Info: [id number] - PHOS Order Info: [id number] - MG Result Comment: Hear t Failure Unlikely: < 300 pg/mL Heart Failure Likely < 50 Years: > 450 pg/mL 50-75 Years: > 900 pg/mL >75 Years: > 1800 pg/mL Performed By: #### L 506.1001, L503.7505 #### [facility] [address] [place], [place], [address] LDL calc ser/plasOrdered By: Edis Harding on 03-24-2025 Cholesterol in LDL [Mass/Vol] 75 mg/dL [facility] Comment on above: Aspgtanevj=767-407 m g/dL & Higher Bmzd=191 mg/dL or greater Lipid Profileon 03-24-2025 CHOL:HDL 2.10 Normal [facility] Comment on above: Order Comment: Order Date: 03/24/25Order Info: [id number] - BMPOrder Info: [id number] - LIPIDOrder Info: [id number] - PHOSOrder Info: [id number] - MG Performed By: #### P SSI #### [facility] [address] [place], [place], [address] Cholesterol [Mass/Vol] 167 mg/dL Normal <=200 [facility] Comment on above: Order Comment: Order Date: 03/24/25Order Info: 666-11 - BMPOrder Info: [id number] - LIPIDOrder Info: [id number] - PHOSOrder Info: [id number] - MG Result Comment: Chol esterol level, Desirable <200 mg/dL Borderline high cholesterol 200-239 mg/dL High cholesterol >=240 mg/dL Recommendations of the NCEP Adult Treatment Panel for the following risk-cutoff thresholds for the [place] population. Performed By: #### P SSI #### [facility] [address] [place], [address] Cholesterol in HDL [Mass/Vol] 80 mg/dL Normal [facility] Comment on above: Order Comment: Order Date: 03/24/25Order Info: 67-1 - BMPOrder Info: [id number] - LIPIDOrder Info: [id number] - PHOSOrder Info: [id number] - MG Result Comment: Teresita onal Cholesterol Education Program (NCEP) guidelines: <40 mg/dL: Low HDL-cholesterol (major risk factor for CHD) >= 60 mg/dL: High HDL-cholesterol (negative risk factor for CHD) HDL-cholesterol is affected by a number of factors, e.g. smoking, exercise, hormones, sex and age. Performed By: #### P SSI #### [facility] [address] [place], [address] Cholesterol in LDL [Mass/Vol] 75 mg/dL Normal [facility] Comment on above: Order Comment: Order Date: 03/24/25Order Info: [id number] - BMPOrder Info: [id number] - LIPIDOrder Info: [id number] - PHOSOrder Info: [id number] - MG Result Comment: Bord ragcxr=222-943 mg/dL Higher Icto=442 mg/dL or greater Performed By: #### P SSI #### [facility] [address] [place], [address] Cholesterol in VLDL [Mass/Vol] 13 mg/dL Normal 5-40 [facility] Comment on above: Order Comment: Order Date: 03/24/25Order Info: 666-1 - BMPOrder Info: [id number] - LIPIDOrder Info: [id number] - PHOSOrder Info: [id number] - MG Performed By: #### P SSI #### [facility] [address] [place], [address] Triglyceride [Mass/Vol] 63 mg/dL Normal [facility] Comment on above: Order Comment: Order Date: 03/24/25Order Info: 666-1 - BMPOrder Info: [id number] - LIPIDOrder Info: [id number] - PHOSOrder Info: [id number] - MG Result Comment: The drugs N-Acetylcysteine and Metamizole may falsely depress this assay. Normal range: <150 mg/dL Borderline High: 150-199 mg/dL High: 200-499 mg/dL Very High: >500 mg/dL Performed By: #### P SSI #### [facility] [address] [place], [place], [address] MCV (mean corpuscular volume ) determinationOrdered By: Edis Harding on 03-24-2025 MCV (RBC) [Entitic vol] 88.3 fL 81-99 [facility] Magnesiumon 03-24-2025 Magnesium [Mass/Vol] 1.9 mg/dL Normal 1.5-2.2 [facility] Comment on above: Order Comment: Order Date: 10/22/24 Order Info: [id number] - PTHIN Performed By: #### L 506.1000, L500.2500, L501.5200, L509.1000 #### [facility] [address] [place], [place], [address] Magnesium measurement (mass/ volume)Ordered By: Edis Harding on 03-24-2025 Magnesium (Unsp spec) [Mass/Vol] 1.9 mg/dL 1.5-2.2 [facility] Mean corpuscular hemoglobin (MCH) determinationOrdered By: Edis Harding on 03-24-2025 MCH (RBC) [Entitic mass] 29.1 pg 27.0-32.0 [facility] Mean corpuscular hemoglobin concentration (MCHC) determinationOrdered By: Edis Harding on 03-24-2025 MCHC (RBC) [Mass/Vol] 32.9 g/dL 32-36 [facility] Mean platelet volume determi nationOrdered By: Edis Harding on 03-24-2025 Platelet mean volume (Bld) [Entitic vol] 10.3 fL 6.2-12.0 [facility] Monocyte percentageOrdered B y: Edis Harding on 03-24-2025 Monocytes/100 WBC (Bld) 6.8 % 0-10 [facility] Natriuretic peptide.B prohor meredith N-Terminal [Mass/volume] in Serum or PlasmaOrdered By: Edis Harding on 03-24-2025 Natriuretic peptide.B prohormone N-Terminal [Mass/Vol] 369 pg/mL <1800 [facility] Comment on above: Heart Failure Unlike ly: < 300 pg/mLHeart Failure Likely< 50 Years: > 450 pg/mL50-75 Years: > 900 pg/mL>75 Years: > 1800 pg/mL Neutrophil percentageOrdered By: Edis Harding on 03-24-2025 Neutrophils/100 WBC (Bld) 57.7 % 47-70 [facility] Nucleated red blood cell per centageOrdered By: Edis Harding on 03-24-2025 Nucleated RBC/100 WBC (Bld) [Ratio] 0 % 0-5 [facility] PTHINon 03-24-2025 PTH 100 pg/mL High 11-61 [facility] Comment on above: Order Comment: Order Date: 10/22/24 Order Info: [id number] - PTHIN Performed By: #### L 506.1000, L500.2500, L501.5200, L509.1000 #### [facility] [address] [place], [address] Phosphoruson 03-24-2025 Phosphate [Mass/Vol] 2.9 mg/dL Normal 2.7-4.5 [facility] Comment on above: Order Comment: Order Date: 10/22/24 Order Info: [id number] - PTHIN Performed By: #### L 506.1000, L500.2500, L501.5200, L509.1000 #### [facility] [address] [place], [address] Platelet countOrdered By: Marisol Harding on 03-24-2025 Platelets (Bld) [#/Vol] 273 10*3/uL 150-450 [facility] Potassium measurement (mass/ volume)Ordered By: Edis Harding on 03-24-2025 Potassium (Unsp spec) [Mass/Vol] 4.1 mmol/L 3.3-5.1 [facility] RBC Auto (Bld) [#/Vol]Ordere d By: Edis Harding on 03-24-2025 RBC (Bld) [#/Vol] 4.44 10*6/uL 4.2-5.4 [facility] Screening total cholesterol/ high density lipoprotein (HDL) cholesterol ratioOrdered By: Edis Harding on 03-24-2025 Cholesterol.total/Jyotsna sterol in HDL [Mass ratio] 2.10 {ratio} [facility] Serum creatinine measurement (mass/volume)Ordered By: Edis Harding on 03-24-2025 Creatinine [Mass/Vol] 0.81 mg/dL 0.70-1.20 [facility] Serum glucose measurement (m ass/volume)Ordered By: [facility] Harding on 03-24-2025 Glucose [Mass/Vol] 92 mg/dL 70-99 [facility] Serum or plasma calcium fina urement (mass/volume)Ordered By: Edis Harding on 03-24-2025 Calcium [Mass/Vol] 9.9 mg/dL 7.6-11.0 [facility] Serum or plasma cholesterol in HDL measurement (mass/volume)Ordered By: Edis Harding on 03-24-2025 Cholesterol in HDL [Mass/Vol] 80 mg/dL >40 [facility] Comment on above: National Cholesterol Education Program (NCEP) guidelines:<40 mg/dL: Low HDL-cholesterol (major risk factor for CHD)>= 60 mg/dL: High HDL-cholesterol (negative risk factor for CHD)HDL-cholesterol is affected by a number of factors, e.g. smoking, exercise, hormones, sex and age. Serum or plasma cholesterol measurement (mass/volume)Ordered By: Edis Harding on 03-24-2025 Cholesterol [Mass/Vol] 167 mg/dL <201 [facility] Comment on above: Cholesterol level, D esirable <200 mg/dLBorderline high cholesterol 200-239 mg/dLHigh cholesterol >=240 mg/dLRecommendations of the NCEP Adult Treatment Panel for the following risk-cutoff thresholds for the [place] population. Serum or plasma urea nitroge n measurement (mass/volume)Ordered By: Edis Harding on 03-24-2025 Urea nitrogen [Mass/Vol] 24 mg/dL High 4-19 [facility] Sodium levelOrdered By: Marlena Harding on 03-24-2025 Sodium [Moles/Vol] 142 mmol/L 133-145 [facility] Triglycerides measurementOrd ered By: Edis Harding on 03-24-2025 Triglyceride [Mass/Vol] 63 mg/dL <199 [facility] Comment on above: The drugs N-Acetylcy steine and Metamizole may falsely depress this assay. Normal range: <150 mg/dLBorderline High: 150-199 mg/dLHigh: 200-499 mg/dLVery High: >500 mg/dL Vitamin D,25 Hydroxyon 03-24 Vitamin D 25-OH 32.3 ng/mL Normal 30-100 [facility] Comment on above: Order Comment: Order Date: 03/24/25 Order Info: [id number] - BMP Order Info: [id number] - LIPID Order Info: [id number] - PHOS Order Info: [id number] - MG Result Comment: Huma min D Status Deficiency: <20 ng/mL (50nmol/L) Insufficiency: 20-30 ng/mL (50-75 nmol/L) Sufficiency: 30-100 ng/mL (75-250 nmol/L) Toxicity: >100 ng/mL (>250 nmol/L) Performed By: #### L 506.1001, L503.7505 #### [facility] [address] [place], [place], [id number] White blood cell (WBC) count Ordered By: Edis Harding on 03-24-2025 WBC (Bld) [#/Vol] 4.1 10*3/uL Low 4.4-11.0 [facility] Re-Evaluation - PT (1)on Re-Evaluation - PT (1) [facility] Physical Therapy [facility] [place] [address] / REEVALUATION / MEDICARE RECERTIFICATION PHYSICAL THERAPY MR#: [id number] Acct: [id number] Name: SHENA HAMILTON Rep #: [id number] : 1935 89 From: Hector Holden PT, ATC Referring Dr.: Dr. Edis Harding MD Status:REG RCR Insurance: [facility] H[facility] SELF PAY INSURANCE Re-Evaluation Intro: Dr. Edis Harding MD, It has been my pleasure to treat SHENA HAMILTON over the last 17 visits for Gait instability. Please see the progress note below for an update on the physical therapy plan of care! Subjective Subjective: Pt reports she is improving, but still feels like she needs to improve Objective Objective/Function: TU seconds FGA: 08/26 still a significant risk for falling at this time MMT: B LE's are grossly 5/5 throughout Pt is showing excellent strength progressions, but lacks functional balance at this time and is a high risk for falling Plan Plan Plan: 12/25/24- Cont to focus on balance activity and gait train ing at this time Balance/Gait/Functional tests Balance/Special Test Scores Functional Gait Assessment Score: 9 % Disability: 70.0000 Lower Extremity Functional Score: 32 Goals Goals Goal 1:: Improve FGA to 10/30 points to aid with preventing future falls Goal Time Frame: 4-6 Weeks Goal Progress: Progressing Goal 2:: Perform a TUG test in under 20 seconds to aid with efficient community mobility Goal Time Frame: 4-6 Weeks Goal Progress: Progressing Goal 3:: Increase B LE strength to 5/5 to aid with sit to stand transfers Goal Time Frame: 4-6 Weeks Goal Progress: Goal Met Goal 4:: I with HEP Goal Time Frame: 4-6 Weeks Goal Progress: Progressing Anticipated Interventions Anticipated Interventions Patient/Client Instruction: Educate patient on: Condition and Plan of Care For the Purpose of:: To improve self management Therapeutic Exercise to Include: Strength training, Endurance training, Balance training, Gait and locomotor training and Dynamic Lumbar Stabilization For the Purpose of:: To improve muscle performance and motor function, To improve ability to perform ADL's, To increase tolerance to activity/condition/posit ion and To improve gait and locomotor f unctions Re-Evaluation Ending Re-evaluation ending: Please do not hesitate to contact me at [phone] by phone or if you have questions or concerns regarding this new plan of care! Sincerely, Hector Holden, PT, ATC 12/25/24 1405 CC: Dr. Edis Harding MD [facility] Signed For Medicare only, by signing this I certify the plan of care. ____ Physicians Signature Date Normal [facility] Hepatobilliary Imagingon Hepatobilliary Imaging [facility] Imaging Services [address] [facility] [place] [address] Hepatobilliary Imaging MR#: [id number] Acct: [id number] Name: SHENA HAMILTON Rep #: [id number] : 1935 F 89 From: Feroz Fischer PCP: Dr. Edis Harding MD Status: REG CLI Study: Hepatobilliary Imaging Date of Exam: 12/10/24 Exam# [id number] Ordering Dr: Luis Drew MD [id number] CLINICAL: 89-year-old female with history of cholelithiasis. RADIONUCLIDE HEPATOBILIARY SCINTIGRAPHY COMPARISON: Abdominal ultrasound report 09/26/2024 FINDINGS: Following the intravenous administration of 6.0 mCi of 99m Tc Mebrofenin, hepatobiliary images reveal: 1. Relatively prompt and homogeneous radiopharmaceutical concentration is noted by a normal sized liver. The left lobe demonstrates a region of hypofunction which appears to correlate with cyst formation demonstrated on CT of the abdomen and pelvis dated 03/29/2024. 2. Gallbladder activity is identified at approximately 40 minutes post radiopharmaceutical administration. 3. Small intestinal tract is observed at 1718 minutes post radiopharmaceutical administration. 4. Washout of the radiopharmaceutical by the hepatic parenchyma appears qualitatively normal. NM/Hepatobilliary Imaging IMPRESSION: 1. Visualization of the gallbladder within 60 minutes post radiopharmaceutical administration excludes acute cholecystitis with 97% certitude. (Maritza et al, Nucl Med [place] Press pg. 35, 1981). Electronically Signed: Feroz Lopez DO at 22:23 EST , CC: Dr. Edis Harding MD; Dr. Luis Drew MD Energy Advisor: Signed Normal [facility] Re-Evaluation - PT (1)on Re-Evaluation - PT (1) [facility] Physical Therapy [facility] [address] [facility] [place] [address] / REEVALUATION / MEDICARE RECERTIFICATION PHYSICAL THERAPY MR#: [id number] Acct: [id number] Name: SHENA HAMILTON Rep #: [id number] : 1935 89 From: Hector Holden PT, ATC Referring Dr.: Dr. Edis Harding MD Status:REG RCR Insurance: [employer] S[employer]F [employer] INSURANCE Re-Evaluation Intro: Dr. Edis Harding MD, It has been my pleasure to treat SHENA HAMILTON over the last 9 visits for Gait instability. Please see the progress note below for an update on the physical therapy plan of care! Subjective Subjective: I am really getting better overall Objective Objective/Function: B LE MMT 4/5 throughout FGA= 8/30 Tug 23 seconds Pt has made significant gains at this time and would benefit from further strength and balance training Plan Plan Plan: 11/12/24- B LE strengthening, core stab ex's, balance and proprio ex's, gait training, and HEP Balance/Gait/Functional tests Balance/Special Test Scores Functional Gait Assessment Score: 8 % Disability: 73.3400 Lower Extremity Functional Score: 15 Goals Goals Goal 1:: Improve FGA to 10/30 points to aid with preventing future falls Goal Time Frame: 4-6 Weeks Goal 2:: Perform a TUG test in under 20 seconds to aid with efficient community mobility Goal Time Frame: 4-6 Weeks Goal 3:: Increase B LE strength to 5/5 to aid with sit to stand transfers Goal Time Frame: 4-6 Weeks Goal 4:: I with HEP Goal Time Frame: 4-6 Weeks Anticipated Interventions Anticipated Interventions Patient/Client Instruction: Educate patient on: Condition and Plan of Care For the Purpose of:: To improve self management Therapeutic Exercise to Include: Strength training, Endurance training, Balance training, Gait and locomotor training and Dynamic Lumbar Stabilization For the Purpose of:: To improve muscle performance and motor function, To improve ability to perform ADL's, To increase tolerance to activity/condition/posit ion and To improve gait and locomotor f unctions Re-Evaluation Ending Re-evaluation ending: Please do not hesitate to contact me at [phone] by phone or if you have questions or concerns regarding this new plan of care! Sincerely, Hector Holden, PT, ATC 11/12/24 1543 CC: Dr. Edis Harding MD [facility] Signed For Medicare only, by signing this I certify the plan of care. ____ Physicians Signature Date Normal [facility] EGD Reporton 11-07-2024 EGD Report [facility] Medical Records Department [address] [place] [address] EGD Report MR#: [id number] Acct: [id number] Name: SHENA HAMILTON Rep #: [id number] : 1935 89 From: Luis Drew MD PCP: Dr. Edis Harding MD Status:[facility] Patient Name: Shena Hamilton Procedure Date: 11/07/2024 11:24 AM Date of : 1935 Age: 89 Procedure: Upper GI endoscopy Indications: Dysphagia, Nausea with vomiting Providers: Luis Drew MD Referring MD: Harley Harding Medicines: See the Anesthesia note for documentation of the administered medications Patient Profile: Refer to note in patient chart for documentation of history and physical. Patient has symptoms of chronic dysphagia, chronic nausea and chronic vomiting. Complications: No immediate complications. Estimated blood loss: Minimal. Procedure: Pre-Anesthesia Assessment: - The heart rate, respiratory rate, oxygen saturations, blood pressure, adequacy of pulmonary ventilation, and response to care were monitored throughout the procedure. After obtaining informed consent, the endoscope was passed under direct vision. Throughout the procedure, the patient's blood pressure, pulse, and oxygen saturations were monitored continuously. The Endoscope was introduced through the mouth, and advanced to the second part of duodenum. The upper GI endoscopy was accomplished without difficulty. The patient tolerated the procedure well. Scope In: 11:35:12 AM Scope Out: 11:59:34 AM Total Procedure Duration Time 0 hours 24 minutes 22 seconds Findings: The duodenal bulb, first portion of the duodenum and second portion of the duodenum were normal. No biopsies or other specimens were collected for this exam. Localized mildly erythematous mucosa without bleeding was found in the gastric antrum. Biopsies were taken with a cold forceps for Helicobacter pylori testing. The pathology specimen was placed into Bottle [Bottle Label]. Estimated blood loss was minimal. Multiple 1 to 3 mm sessile polyps with no bleeding and no stigmata of recent bleeding were found in the cardia and in the gastric fundus. Biopsies were taken with a cold forceps for histology. Estimated blood loss was minimal. A single 3 mm sessile polyp with no bleeding and no stigmata of recent bleeding was found at the gastroesophageal junction. Biopsies were taken with a cold forceps for histology. Estimated blood loss was minimal. The Z-line was irregular and was found 39 cm from the incisors. Estimated blood loss: 3 mL requiring treatment with placement of hemostatic clip(s). Multiple 2 to 4 mm plaques were found in the middle third of the esophagus. Biopsies were taken with a cold forceps for histology. Estimated blood loss was minimal. A medium-sized hiatal hernia was present. Impression: - Normal duodenal bulb, first portion of the duodenum and second portion of the duodenum. No specimens collected. - Erythematous mucosa in the antrum. Biopsied. - Multiple gastric polyps. Biopsied. - A single gastroesophageal junction polyp. Biopsied. - Z-line irregular, 39 cm from the incisors. - Multiple plaques in the middle third of the esophagus. Biopsied. - Medium-sized hiatal hernia. Recommendation: - Discharge patient to home (via wheelchair). - Soft diet for 1 week. - No aspirin, ibuprofen, naproxen, or other non-steroidal anti-inflammatory drugs for 2 days after biopsy. - Await pathology results. - Telephone my office for pathology results in 1 week. Procedure Code(s): --- Professional --- 96716, Esophagogastroduodenosco py, flexible, transoral; with biopsy, single or multiple Diagnosis Code(s): --- Professional --- K31.89, Other diseases of stomach and duodenum K31.7, Polyp of stomach and duodenum K22.82, Esophagogastric junction polyp K22.89, Other specified disease of esophagus K44.9, Diaphragmatic hernia without obstruction or gangrene R13.10, Dysphagia, unspecified R11.2, Nausea with vomiting, unspecified CPT copyright 2021 [employer]. All rights reserved. The codes documented in this report are preliminary and upon supervisory training specialist review may be revised to meet current compliance requirements. Luis Drew MD 11/07/2024 12:08:13 PM This report has been signed electronically. Number of Addenda: 0 Note Initiated On: 11/07/2024 11:24 AM 11/07/24 1208 Date Luis Drew MD Cosigner Signature: Date (if indicated) CC: Dr. Edis Harding MD; Dr. Luis Drew MD Date Dictated: 11/07/241123 Date Transcribed: Energy Advisor: FERNANDA Signed Normal [facility] H Pylori (initial)on 024 H Pylori (initial) ---- Patient Age/Sex Location Account Attending Physician SHENA HAMILTON [place] 89/F EN [id number] Dr. Luis Drew MD Specimen: [id number] Received: 11/07/24 Status: RICARDO Orourke Num: [id number] Spec Type: IMMUNO Subm Dr: Dr. Luis Drew MD PHYSICIAN INSTITUTION [place] [address] SPECIMEN INFORMATION: Tissue Source: A- Antrum biopsy Clinical Info: Vomiting in adult Specimen Number: [id number] CPT code: 66249 METHODOLOGY: Deparaffinized sections of prefer/formalin-fixed tissue or PAP/DQ stained slides are incubated with monoclonal/polyclonal antibodies/oligonucleoti de probes. Localization is made via biotin free immunoperoxidase method. Appropriate controls are performed and reacted as expected. Results on target cell population are indicated in the following table: RESULTS: ANTIBODY / CLONE RESULT Block A H Pylori (polyclonal) negative These tests were developed and their performance characteristics determined by [facility]. They may not have been cleared or approved by the U.S. Food and Drug Administration. The FDA has determined that such clearance or approval is not necessary. The above immunohistochemical/dual BRITTA markers are ordered and reviewed by the Pathologist. INTERPRETATION: A. Antrum, biopsy: Negative for Helicobacter pylori organisms. 11/08/2024 Signed (signature on file) Dr. Barbara Alexis MD 11/08/24 1509 Normal [facility] Comment on above: Performed By: #### L 506.1000, L500.2500, L501.5200, L509.1000 #### [facility] [address] [facility] [place], [address] MR/POSTOP.GUERITA 11-07-2024 MR/POSTOP.[facility] Medical Records Department [address] [place] [address] Anesthesia Postop Eval I 11/07/24 1208 MR#: [id number] Acct: [id number] Name: SHENA HAMILTON Rep #: [id number] : 1935 89 From: Charles Mckeon PCP: Dr. Edis Harding MD Status:REG SDC Y Race: C Location: [place] [address] Anesthesia: Postop Eval I Current Vital Signs Temperature: 97.4 F Pulse Rate: 68 Blood Pressure: 79/45 Respiratory Rate: 16 Pulse Ox: 98 Oxygen Delivery Method: Room Air Assessment Airway patent: Yes Spontaneous unlabored respirations: Yes Mental status: Asleep nausea: No Vomiting: No Anesthesia Complication: No Fluid Hydration Crystalloid volume administer (ml): 90 Total IV fluid infused: 90 Progress Note Anesthesia document: Postop Eval 1 completed: Yes 11/07/241208 Date Charles Spears Signature: Date CC: Signed Normal [facility] MR/[id number] 11-07-2024 MR/POSTOPAN2 [facility] Medical Records Department [address] [place] [address] Anesthesia Postop Eval II 11/07/24 1233 MR#: [id number] Acct: [id number] Name: SHENA HAMILTON Rep #: [id number] : 1935 89 From: Scotty Wan MD PCP: Dr. Edis Harding MD Status:REG SDC Y Race: C Location: [address] Anesthesia Postop Eval I Sum Postop Eval Completion status Anesthesia document: Postop Eval 1 completed: Yes Anesthesia Postop Eval I Summary Anesthesia Postop Eval I Summary: Anesthesia Postop Eval I: Assessment Summary Airway patent Yes 11/07/24 12:09 [email or web address] Spontaneous unlabored Yes 11/07/24 12:09 [email or web address] respirations Mental status Asleep 11/07/24 12:09 [email or web address] nausea No 11/07/24 12:09 [email or web address] Vomiting No 11/07/24 12:09 [email or web address] Anesthesia Postop Eval I: Fluid Summary Crystalloid volume administer 90 11/07/24 12:09 [email or web address] (ml) Colloids volume administered ( ml) Blood Product volume administered (ml) Total IV fluid infused 90 11/07/24 12:09 [email or web address] Anesthesia Postop Eval I: Summary Notes Anesthesia Complication No 11/07/24 12:09 [email or web address] Anesthesia Complication Comment: Post-operative progress note Anesthesia: Postop Eval II Evaluation Mental status: Awake Pain Level: 0 nausea: No Vomiting: No 11/07/24 1233 Date Scotty Wan MD Cosigner Signature: Date CC: Signed Normal [facility] Special Stain Group Ion 10-27 Special Stain Group I ------ Patient Age/Sex Location Account Attending Physician SHENA HAMILTON 89/F EN [id number] Dr. Luis Drew MD Specimen: [id number] Received: 11/07/24 Status: RICARDO Orourke Num: [id number] Spec Type: Gastric Bx Subm Dr: Dr. Luis Drew MD HEADER OPERATION: EGD PRE-OP DIAGNOSIS: Vomiting in adult TISSUE SUBMITTED: A- Antrum biopsy, B- Gastric cardia polyp biopsy, C- GE fold polyp biopsy, D- GE junction biopsy, E- Mid esophageal plaque biopsy MICROSCOPIC DIAGNOSIS A. Antrum, biopsy: Reactive gastropathy with minimal chronic inflammation. See comment. B. Gastric cardia polyp, biopsy: Gastric mucosa with minimal chronic inflammation. Definitive polyp morphology not identified. C. Gastroesophageal fold polyp, biopsy: Fundic gland polyp. Fragments of gastric mucosa with minimal chronic inflammation. D. Gastroesophageal junction, biopsy: Polypoid squamous mucosa with focal changes suggestive of mild acute reflux esophagitis. No glandular mucosa is present for evaluation. Negative for intestinal metaplasia/ Ortiz's esophagus. Negative for dysplasia. Negative for eosinophilic esophagitis. See comment. E. Mid esophagus plaque, biopsy: Superficial fragments of squamous mucosa with changes suggestive of reactive changes. No glandular mucosa is present for evaluation. Negaitve for intestinal metaplasia/Ortiz's esophagus. Negative for dysplasia. Negative for eosinophilic esophagitis. PW/mr 11/08/2024 COMMENT A. The results of immunohistochemistry for Helicobacter pylori will be reported separately ([id number]). C,D. Alcian blue/PAS stain with matched control is used in the evaluation of the specimen showing no goblet cells and therefore no evidence of intestinal metaplasia/Ortiz's esophagus. Patient Age/Sex Location Account Attending Physician SHENA HAMILTON 89/F EN [id number] Dr. Luis Drew MD MICROSCOPIC DESCRIPTION Slides are reviewed. GROSS DESCRIPTION A. Received in fixative is one container labeled with the patient's name and designated Antrum biopsy. The specimen consists of multiple irregular fragments of light wright soft tissue that in aggregate measure 0.9 x 0.2 x 0.1 cm. The specimen is totally submitted in one cassette. B. Received in fixative is one container labeled with the patient's name and designated Gastric cardia polyp biopsy. The specimen consists of two irregular fragments of light wright soft tissue that in aggregate measure 0.5 x 0.3 x 0.1 cm. The specimen is totally submitted in one cassette. C. Received in fixative is one container labeled with the patient's name and designated GE fold polyp biopsy. The specimen consists of one irregular fragment of light wright soft tissue that measures 0.5 x 0.5 x 0.1 cm. The specimen is totally submitted in one cassette. D. Received in fixative is one container labeled with the patient's name and designated GE junction biopsy. The specimen consists of one irregular fragment of light wright soft tissue that measures 0.3 x 0.2 x 0.1 cm. The specimen is totally submitted in one cassette. E. Received in fixative is one container labeled with the patient's name and designated Mid esophagus plaque biopsy. The specimen consists of multiple irregular fragments of light wright soft tissue that in aggregate measure 0.6 x 0.3 x 0.1 cm. The specimen is totally submitted in one cassette. 11/07/2024 TC:3 CPT:90044g8,17609q1 Patient Age/Sex Location Account Attending Physician SHENA HAMILTON 89/F EN [id number] Dr. Luis Drew MD Signed (signature on file) Dr. Barbara Alexis MD 11/08/24 1220 Normal [facility] Comment on above: Performed By: #### P SSI #### [facility] [address] [place], [address] MR/PAT.GUERITAon 11-06-2024 MR/PAT.GUERITA [facility] Medical Records Department [address] [place] [address] PAT - Anesthesia 11/06/24 1351 MR#: [id number] Acct: [id number] Name: SHENA HAMILTON Rep #: [id number] : 1935 89 From: Micah Fung MD PCP: Dr. Edis Harding MD Status:PRE SDC Y Race: C Location: EN PAT status Pat Assessment PAT Assessment: PAT Anesthesia Results to Eval 11/06/24 11:56 Pre-Assessment Diagnosis/Proposed Procedure Planned Operative Procedure(s): EGD Anesthesia History Anesthesia History - contract coordinator: Anesthesia History - contract coordinator Hx Hospitalization No 11/05/24 09:54 Any Problems With Anesthesia Yes: HARD TIME WAKING UP 11/05/24 09:54 WITH ONE OF SURGERIES, BUT NOT RECENT Cholinesterase deficiency No 11/05/24 09:54 You/Your Family Experience No 11/05/24 09:54 fever (hyperthermia) with Relationship Recent Exposure to Contagious No 07/07/22 08:24 Disease Does patient have nerve No 11/05/24 09:54 stimulator Patient instructed to have device shut off --Does patient have Pacemaker or ICD? When Was Last Pacemaker Check QUESTION #4 FULL TEXT: You/Your Family Experience fever (hyperthermia) with Anesthesia Last Oral Intake Last Oral intake: Last Oral Intake NPO since Meds taken in AM with sips of water? Meds patient instructed to take am of surgery PONV PONV - contract coordinator: PONV - contract coordinator Female Yes 11/05/24 09:54 HX of Motion Sickness No 11/05/24 09:54 HX of N/V After Surgery No 11/05/24 09:54 Non-Smoker Yes 11/05/24 09:54 Duration of Surgery greater No 11/05/24 09:54 than 60 minutes Number of Risk Factors 2 11/05/24 09:54 PONV Score Moderate Risk 11/05/24 09:54 Height Weight Height Weight: Anesthesia: Height Weight Height 5 ft 7 in 10/16/24 10:02 Respiratory Assessment Respiratory Assessment - contract coordinator: Respiratory Tract Infection Hx - contract coordinator Hx Respiratory Tract Infection No 11/05/24 09:54 STOP Sleep Apnea STOP Sleep Apnea - contract coordinator: STOP Sleep Apnea - contract coordinator Hx Hypertension Yes 11/05/24 09:54 Hx Sleep Apnea No 11/05/24 09:54 CPAP No 05/17/24 09:55 BIPAP No 07/05/22 08:51 Do you snore loudly (louder No 11/05/24 09:54 than talking or can be heard Do you often feel tired/ No 11/05/24 09:54 fatigued/ sleepy during daytime? Has anyone observed you stop No 11/05/24 09:54 breathing during sleep? STOP Results Negative 11/05/24 09:54 QUESTION #5 FULL TEXT : Do you snore loudly (louder than talking or can be heard through closed doors)? Tobacco Use History Tobacco Use History - contract coordinator: Tobacco Use History - contract coordinator Tobacco Use Smoking Status Former smoker 11/05/24 09:54 Hx Tobacco Use No 11/05/24 09:54 Years Smoking Packs Smoked per Day Smoking Cessation Date was No - quit smoking greater 11/05/24 09:54 within the last 15 years than 15 years ago Hx Smoking Cessation Date 12/28/94 11/05/24 09:54 Hx Smoking Cessation No 11/05/24 09:54 Counseling Hematologic Medial History Hematologic Hx - contract coordinator: Hematologic Medical Hx - food preservation scientist Hx of Blood Transfusion No 11/05/24 09:54 Hx of Transfusion in last 3 No 11/05/24 09:54 Months Date of Last Transfusion (if within last 3 months) Ever experience any problems No 11/05/24 09:54 with transfusion(s)? Specify any problems Hx of Preganancy in last 3 No 11/05/24 09:54 Months Nurse Filling Out Transfusion [facility] 11/05/24 09:54 Questions: Date: 11/05/24 11/05/24 09:54 Time: 10:06 11/05/24 09:54 Patient unable to answer at this time (ie. confused, unrespo /Reproduction History /Reproductive History - contract coordinator: /Reproductive Hx- contract coordinator Hx Now No 11/05/24 09:54 Gestational Age (in weeks): EDC: Hx Hx Para Hx Section SAB No 11/05/24 09:54 [facility] Medical History (Updated 11/05/24 @ 10:05 by Darshana Pereyra) Walker as ambulation aid Gout History of CHF (congestive heart failure) Cholelithiasis Kidney stones Loss of hearing Vaginitis Discoloration of skin Bladder disease Restless legs Migraine headache Difficulty swallowing Vomiting Leg cramps History of pain when walking History of echocardiogram Wears dentures Wears glasses Post-menopausal Cancer Depression Anxiety Alcohol use Ambulates with cane Arthritis High cholesterol Back pain Former smoker History of edema History of stress test FH: total knee replacement Hypertension Home Medications ???Medication ???Instruction (more content not included)... Normal [facility] Calcium (24H U) [Mass/Time]O rdered By: Edis Harding on 11-04-2024 Urine Calcium 24 Hour 45.6 mg/24 HR 42.0-353.0 [facility] Calcium (U) [Mass/Vol]Ordere d By: Edis Harding on 11-04-2024 Urine Calcium 15.2 mg/dL Not Estab. [facility] Calcium, Urine 24HRon 2023 24HR UR Calcium 45.6 mg/24 HR Normal 42.0-353.0 [facility] Comment on above: Performed By: #### L 500.7000 #### [facility] [address] [place], [address] Urine Calcium 15.2 mg/dL Normal Not Estab. [facility] Comment on above: Performed By: #### L 500.7000 #### [facility] [address], [address] Calcium UR pH 1 Normal [facility] Comment on above: Performed By: #### L 500.7000 #### [facility] [address] [place], [address] UR Collect Time 24.0 HR Normal 24.0-24.0 [facility] Comment on above: Performed By: #### L 500.7000 #### [facility] [address] [place], [address] UR Total Volume 300 ml Normal [facility] Comment on above: Performed By: #### L 500.7000 #### [facility] [address] [place], [address] Collection time (Elaine) [Date/ time]Ordered By: Edis Harding on 11-04-2024 Urine Collection Time 24.0 HR 24.0-24.0 [facility] - Chemistry and C hemistry - challengeOrdered By: Edis Harding on 11-04-2024 pH (U) 1 [pH] [facility] Specimen volume (24H U)Order ed By: Edis Harding on 11-04-2024 Urine Total Volume 300 ml [facility] 54-TP-Halxkyn DOrdered By: Azam Harding on 10-22-2024 Vitamin D 25-Hydroxy 38.0 ng/mL [facility] Comment on above: Vitamin D 25(OH) Sta tus Range Deficiency <20 ng/mL (50nmol/L) Insufficiency 20 - 30 ng/mL (50 - 75 nmol/L) Sufficiency 30 - 100 ng/mL (75 - 250 nmol/L) Toxicity >100 ng/mL (>250 nmol/L) Basic Metabolic Profile (BMP )on 10-22-2024 BUN/CRE 31.3 RATIO High 10-20 [facility] Comment on above: Order Comment: Order Date: 10/22/24 Order Info: [id number] - BMP Order Info: [id number] - MG Performed By: #### L 506.1000, L500.2500, L501.5200, L509.1000 #### [facility] [address] [place], [address] CA,Total 9.9 mg/dL Normal 8.5-10.1 [facility] Comment on above: Order Comment: Order Date: 10/22/24 Order Info: 0667-1 - BMP Order Info: 55025-4 - MG Performed By: #### L 506.1000, L500.2500, L501.5200, L509.1000 #### [facility] [address] [place], [address] Chloride [Moles/Vol] 109 mmol/L High 98-107 [facility] Comment on above: Order Comment: Order Date: 10/22/24 Order Info: 0667-1 - BMP Order Info: 29935-2 - MG Performed By: #### L 506.1000, L500.2500, L501.5200, L509.1000 #### [facility] [address] [place], [address] CO2 [Moles/Vol] 25.0 mmol/L Normal 21.0-32.0 [facility] Comment on above: Order Comment: Order Date: 10/22/24 Order Info: 06 - BMP Order Info: 20404-9 - MG Performed By: #### L 506.1000, L500.2500, L501.5200, L509.1000 #### [facility] [address] [place], [address] Creatinine [Mass/Vol] 0.70 mg/dL Normal 0.55-1.02 [facility] Comment on above: Order Comment: Order Date: 10/22/24 Order Info: 666-11 - BMP Order Info: [id number] - MG Result Comment: The validity of the calculated GFR GFRAA in patients over 70 years has not been determined. Clinical correlation is essential. Performed By: #### L 506.1000, L500.2500, L501.5200, L509.1000 #### [facility] [address] [place], [address] EST GFR - AA 101 mL/min Normal >60 [facility] Comment on above: Order Comment: Order Date: 10/22/24 Order Info: 666-11 - BMP Order Info: 00653-7 - MG Result Comment: Afri can Sudanese GFR Calc Performed By: #### L 506.1000, L500.2500, L501.5200, L509.1000 #### [facility] [address] [place], [address] GAP 6 Normal 5-15 [facility] Comment on above: Order Comment: Order Date: 10/22/24 Order Info: 666-11 - BMP Order Info: 13783-7 - MG Performed By: #### L 506.1000, L500.2500, L501.5200, L509.1000 #### [facility] [address] [place], [address] GFR/1.73 sq M.predicted among non-blacks MDRD (S/P/Bld) [Vol rate/Area] 84 mL/min/{1.73_m2} Normal >60 [facility] Comment on above: Order Comment: Order Date: 10/22/24 Order Info: 0667-1 - BMP Order Info: 04029-5 - MG Result Comment: Non- GFR Calc Performed By: #### L 506.1000, L500.2500, L501.5200, L509.1000 #### [facility] [address] [place], [address] Glucose [Mass/Vol] 92 mg/dL Normal 74-106 [facility] Comment on above: Order Comment: Order Date: 10/22/24 Order Info: 0667- - BMP Order Info: 16699-8 - MG Performed By: #### L 506.1000, L500.2500, L501.5200, L509.1000 #### [facility] [address] [place], [address] Potassium [Moles/Vol] 3.7 mmol/L Normal 3.5-5.1 [facility] Comment on above: Order Comment: Order Date: 10/22/24 Order Info: 0667- - BMP Order Info: [id number] - MG Performed By: #### L 506.1000, L500.2500, L501.5200, L509.1000 #### [facility] [address] [place], [address] Sodium [Moles/Vol] 141 mmol/L Normal 136-145 [facility] Comment on above: Order Comment: Order Date: 10/22/24 Order Info: 0667-1 - BMP Order Info: [id number] - MG Performed By: #### L 506.1000, L500.2500, L501.5200, L509.1000 #### [facility] [address] [place], [address] Urea nitrogen [Mass/Vol] 22 mg/dL High 7-18 [facility] Comment on above: Order Comment: Order Date: 10/22/24 Order Info: 0667-1 - BMP Order Info: [id number] - MG Performed By: #### L 506.1000, L500.2500, L501.5200, L509.1000 #### [facility] [address] [place], [address] Blood urea nitrogen (BUN)/cr eatinine ratioOrdered By: Edis Harding on 10-22-2024 Urea nitrogen/Creatinine [Mass ratio] 31.3 mg/mg High 10-20 [facility] Carbon dioxide measurementOr dered By: Edis Harding on 10-22-2024 CO2 [Moles/Vol] 25.0 mmol/L 21.0-32.0 [facility] Chloride measurementOrdered By: Edis Harding on 10-22-2024 Chloride [Moles/Vol] 109 mmol/L High 98-107 [facility] Estimated glomerular filtrat ion rate (GFR) AmericanOrdered By: Edis Harding on 10-22-2024 Estimated GFR (MDRD) Amer 101 mL/min >60 [facility] Comment on above: GFR Calc Glomerular filtration rate ( GFR) estimationOrdered By: Edis Harding on 10-22-2024 Estimated GFR (MDRD) Non-Af Amer 84 mL/min >60 [facility] Comment on above: Non- GFR Calc Glucose measurementOrdered B y: Edis Harding on 10-22-2024 Glucose [Mass/Vol] 92 mg/dL 74-106 [facility] Intact parathyroid hormone ( iPTH) measurementOrdered By: Edis Harding on 10-22-2024 Parathyroid Hormone (Intact) 150.9 pg/mL High 18.4-80.1 [facility] Magnesiumon 10-22-2024 Magnesium [Mass/Vol] 2.0 mg/dL Normal 1.6-2.6 [facility] Comment on above: Order Comment: Order Date: 10/22/24 Order Info: 0667-1 - BMP Order Info: [id number] - MG Performed By: #### L 506.1000, L500.2500, L501.5200, L509.1000 #### [facility] [address] [place], [place], [address] Magnesium measurementOrdered By: Edis Harding on 10-22-2024 Magnesium [Mass/Vol] 2.0 mg/dL 1.6-2.6 [facility] PTHINon 10-22-2024 PTH 150.9 pg/mL High 18.4-80.1 [facility] Comment on above: Order Comment: Order Date: 10/22/24 Order Info: 0565-1 - PTHIN Performed By: #### L 506.1000, L500.2500, L501.5200, L509.1000 #### [facility] [address] [place], [address] Potassium measurementOrdered By: Edis Harding on 10-22-2024 Potassium [Moles/Vol] 3.7 mmol/L 3.5-5.1 [facility] Serum anion gap measurementO rdered By: Edis Harding on 10-22-2024 Anion gap [Moles/Vol] 6 mmol/L 5-15 [facility] Serum or plasma calcium fina urement (mass/volume)Ordered By: Edis Harding on 10-22-2024 Calcium [Mass/Vol] 9.9 mg/dL 8.5-10.1 [facility] Serum or plasma creatinine m easurement (mass/volume)Ordered By: Edis Harding on 10-22-2024 Creatinine [Mass/Vol] 0.70 mg/dL 0.55-1.02 [facility] Comment on above: The validity of the calculated GFR & GFRAA in patients over 70 years has not been determined. Clinical correlation is essential. Serum or plasma urea nitroge n measurement (mass/volume)Ordered By: Edis Harding on 10-22-2024 Urea nitrogen [Mass/Vol] 22 mg/dL High 7-18 [facility] Sodium levelOrdered By: Marlena Harding on 10-22-2024 Sodium [Moles/Vol] 141 mmol/L 136-145 [facility] Vitamin D,25 Hydroxyon 10-22 Vitamin D 25-OH 38.0 ng/mL Normal [facility] Comment on above: Order Comment: Order Date: 10/22/24 Order Info: [id number] - VITD25 Result Comment: Huma min D 25(OH) Status Range Deficiency <20 ng/mL (50nmol/L) Insufficiency 20 - 30 ng/mL (50 - 75 nmol/L) Sufficiency 30 - 100 ng/mL (75 - 250 nmol/L) Toxicity >100 ng/mL (>250 nmol/L) Performed By: #### L 506.1000, L500.2500, L501.5200, L509.1000 #### [facility] [address] [place], [address] Surgery Visit Reporton 10-16 Surgery Visit Report [facility] [address] [place] [address] OFFICE VISIT Date of Service: 10/16/24 MR#: [id number] Acct: [id number] Name: SHENA HAMILTON Rep #: [id number] : 1935 Provider: Dr. Luis driver MD Age/Sex: 89/F Location: [facility] Status: Signed Intake Vital Signs 07/11/24 21:57 10/16/24 10:02 Height 5 ft 7 in 5 ft 7 in Weight: 160 lb BMI 25.0 BP 120/84 H Blood Pressure Location Rt brachial Position Sitting Respiration 18 Pulse 66 Pulse Source Monitor Temp 97.3 F L Temp Source Temporal Pulse Oximetry (%) 100 Oxygen Delivery Method room air Intake Visit Reasons: GALLBLADDER/POSSIBLE EGD Chief Complaint: gallbladder/possible EGD Is patient in pain?: No Allergies morphine Adverse Reaction (Intermediate, Verified 10/16/24 10:03) Inflammation of vein Medications ???Medication ???Instructions ???Recorded ???Confirmed ???Type simvastatin 20 mg tablet 20 mg PO QHS cholesterol 10/22/13 10/16/24 History timolol maleate 0.5 % eye drops 1 drp DAILY eye health 11/01/13 10/16/24 History lisinopril 10 mg tablet 40 mg PO QHS blood pressure 04/10/19 10/16/24 History metoprolol succinate 25 mg 12.5 mg (1/2 x 25 mg) PO DAILY #30 10/24/23 10/16/24 Rx tablet,extended release 24 hr tabs oxycodone-acetaminophen 5 mg-325 1 tab PO Q6H PRN pain 5 days #20 03/29/24 10/16/24 Rx mg tablet (Percocet) tabs furosemide 40 mg tablet 40 mg PO DAILY PRN PRN edema 05/07/24 10/16/24 History ketorolac 10 mg tablet 10 mg PO Q6H PRN PRN pain 05/07/24 10/16/24 History amlodipine 5 mg tablet 5 mg PO DAILY 05/17/24 10/16/24 History ciprofloxacin HCl 500 mg tablet 500 mg PO BID #6 tabs 05/17/24 10/16/24 Rx (Cipro) ibuprofen 400 mg tablet 400 mg PO Q6H PRN fever or pain 05/17/24 10/16/24 Rx #20 tabs ondansetron 4 mg disintegrating 4 mg PO Q6H PRN PRN Nausea #15 tabs 07/11/24 10/16/24 Rx tablet Have you fallen in the past year?: No (Not specifically asked) PFSH Medical History (Updated 10/16/24 @ 15:[address] Luis Drew MD) Cholelithiasis Kidney stones Loss of hearing Vaginitis Discoloration of skin Bladder disease Restless legs Migraine headache Difficulty swallowing Vomiting Leg cramps History of pain when walking History of echocardiogram Wears dentures Wears glasses Post-menopausal Cancer Depression Anxiety Alcohol use Ambulates with cane Arthritis High cholesterol Back pain Former smoker History of edema History of stress test FH: total knee replacement Hypertension Surgical History Hx of myomectomy Hx of colonoscopy Hx of external ear surgery Hx of bilateral cataract extraction Hx of dilation and curettage H/O removal of cyst H/O breast biopsy History of abdominal surgery Social History household members: spouse Smoking Status: Former smoker alcohol intake: current HPI HPI HPI: Patient is a 89-year-old female who presents for evaluation for recurrent vomiting episodes and some dysphagia. They are referred for surgical consultation from Dr. Harding. Patient is known to me from a inpatient stay related to a possible small bowel obstruction in April 2022 and thereafter underwent both EGD and colonoscopy in June 2022. Mrs. Hamilton communicates that she has experienced episodic vomiting that sidelined her for a week every couple of months. She describes these episodes as never starting the morning but otherwise does not seem to follow a particular pattern for time of day nor preceding diet. She reports that she initially feels nausea and it takes a while for the vomiting to start. She believes these episodes have been going on for a little over a year. She denies any associated bloating. She shares that there is sometimes associated abdominal pain but she goes on to characterize this as minimal compared to what [her] Bridge partners describe related to their gallbladder attacks. When this pain is present she believes it to be localized to the right abdomen and lower middle. She reports these episodes have been better lately but adds that 3 of the 4 weekends in August she dealt with such episodes. She additionally presents for swallowing difficulty. She at 1 point shares that she does not have a great deal (with swallowing difficulty). In fact, she states she was surprised to hear that [her] tablet was stuck (referring to her recent swallow study on 09/30/2024). She further adds that she did not perceive any discomfort with this experience. She notes that every once in a while [she] feels like [she] cannot swallow but does not get the impression that foodstuff will not go down. (more content not included)... Normal [facility] Esophagus Dual Contraston Esophagus Dual Contrast [facility] Services [address] [place] [address] [id number] Esophagus Dual Contrast MR#: [id number] Acct: [id number] Name: SHENA HAMILTON Rep #: [id number] : 1935 F 89 From: Perry cruz MD PCP: Dr. Edis Harding MD Status: REG CLI Study: Esophagus Dual Contrast Date of Exam: 09/30/24 Exam# [id number] Ordering Dr: Edis Harding [id number] STUDY: X-RAY - ESOPHAGUS (BARIUM SWALLOW) WITH FLUOROSCOPY REASON FOR EXAM: Female, 89 years old. Dysphagia TECHNIQUE: 56 fluoroscopic view(s) of the esophagus were obtained following swallowing of barium. FLUOROSCOPY TIME (if supplied): (40 seconds) minutes/seconds. COMPARISON: None. FINDINGS: There is no demonstrated esophageal foreign body. There is no demonstrated stricture or mucosal abnormality. Normal gastroesophageal junction, without a demonstrated hiatal hernia. The patient ingested a 12 mm tablet of barium. The tablet is trapped at the gastroesophageal junction. There is atherosclerotic calcification of the aortic arch with tortuosity of the descending aorta. Normal visualized pulmonary parenchyma. There are diffuse degenerative changes of the visualized thoracic spine. RAD/Esophagus Dual Contrast IMPRESSION: The patient ingested a 12 mm tablet of barium. The tablet is trapped at the gastroesophageal junction. Endoscopic correlation recommended. Electronically Signed: Perry Dooley MD at 12:12 EST , CC: Dr. Edis Harding MD Energy Advisor: Signed Normal [facility] Abdomen Limitedon 09-26-2024 Abdomen Limited [facility] Services [address] [place] [address] [id number] Abdomen Limited MR#: [id number] Acct: [id number] Name: SHENA HAMILTON Rep #: [id number] : 1935 F 89 From: Elvie foote MD PCP: Dr. Edis Harding MD Status: REG CL Study: Abdomen Limited Date of Exam: 09/26/24 Exam# [id number] Ordering Dr: Edis Harding [id number] HISTORY: cholelithiasis, vomiting. TECHNIQUE: Murphy scale and color doppler imaging was performed of the right upper quadrant. 101 images. COMPARISON: CT 03/29/2024. FINDINGS: LIVER: 14.9 cm in length. 2.3 x 2.5 x 2.7 cm peripherally calcified cyst in the left lobe. 4.3 x 5.1 x 5.5 cm and 2.5 x 2.9 x 3.3 cm simple cysts in the left lobe. No intrahepatic ductal dilatation. MAIN PORTAL VEIN: Patent with hepatopedal flow. COMMON BILE DUCT: 3 mm in diameter. GALLBLADDER: 2.6 shadowing gallstone. 3 mm wall thickness. No pericholecystic fluid. Sonographic De Dios sign negative. PANCREAS: Visualized proximal portion unremarkable. RIGHT KIDNEY: 11.1 cm in length with a cortical thickness of 1 cm. No hydronephrosis. 2.2 x 2.3 x 2.4 cm upper pole cyst and 1.6 x 1.8 x 1.68 cm lower pole cyst. US/Abdomen Limited IMPRESSION: Cholelithiasis with a large shadowing gallstone. Hepatic and right renal cysts. Electronically Signed: Elvie Weber MD at 12:19 EDT , CC: Dr. Edis Harding MD Energy Advisor: Signed Normal [facility] Inital Evaluation (1) - PTon 09-25-2024 Inital Evaluation (1) - PT [facility] Physical Therapy [facility] [place] [address] / REHABILITATION SERVICES INITIAL EVALUATION MR#: [id number] Acct: [id number] Name: SHENA HAMILTON Rep #: [id number] : 1935 89 From: Hector Holden PT, ATC Referring Dr.: Dr. Edis Harding MD Status: REG RCR Insurance: [facility] [employer] SELF PAY INSURANCE Patient's Visit Information Visit Information Visit Information: SHENA HAMILTON is a 89 year old F referred to Physical Therapy by Dr. Edis Harding MD with a diagnosis of Gait instability. Date of Evaluation: 09/25/24 Physical Therapist: Hector Holden, PT, ATC Visit Plan Frequency: 2x /Week Duration: 4-6 Weeks Plan: B LE strengthening, core stab ex's, balance and proprio ex's, gait training, and HEP Subjective Subjective: Pt notes she has had balance concerns for several years. Pt reports she has had therapy in the past, but continues to have difficulty. Pt notes her balance has worsened over the past month. Pt reports she has several other issues including throwing up a lot which has been contributed to her stress and other possibilities. Pt reports no recent falls. Pt notes she has been ambulating with a cane for the past 6 months secondary to her intolerance for standing, and her difficulty with balance. Pt reports she has a very difficult time with walking up or down a slope. Pt reports she has descent sensation in her feet. 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 Pt reports her eye sight is good now. She used to see objects that weren't there. Pt denies feeling light headed or dizzy at this time. No pain this date. Pt reports her goal is to be able to walk better since she helps to take care of her ailing . Objective Objective: Neuro: B LE sensation is WNL to light touch. TU sec MMT: B LE's are rated 4/5 throughout FGA: 4/30 Transfers: Pt must hold on to my arm in order to stand from a sitting position Balance/Special Test Scores Functional Gait Assessment Score: 4 % Disability: 86.6700 Lower Extremity Functional Score: 15 Goals Goal 1:: Improve FGA to 10/30 points to aid with preventing future falls Goal Time Frame: 4-6 Weeks Goal 2:: Perform a TUG test in under 20 seconds to aid with efficient community mobility Goal Time Frame: 4-6 Weeks Goal 3:: Increase B LE strength to 5/5 to aid with sit to stand transfers Goal Time Frame: 4-6 Weeks Goal 4:: I with HEP Goal Time Frame: 4-6 Weeks Rehabilitation Potential Physical Therapy Diagnosis: Pt has gait instability, LE weakness, and is a fall risk at this time secondary to debilitation Rehabilitation Potential: Good Anticipated Interventions Patient/Client Instruction: Educate patient on: Condition and Plan of Care For the Purpose of:: To improve self management Therapeutic Exercise to Include: Strength training, Endurance training, Balance training, Gait and locomotor training and Dynamic Lumbar Stabilization For the Purpose of:: To improve muscle performance and motor function, To improve ability to perform ADL's, To increase tolerance to activity/condition/posit ion and To improve gait and locomotor functions Text: Thank you for the opportunity to evaluate your patient. For Medicare and Medicare HMO plans, please review the plan of care and approve it. It will need to be FAXED BACK to us at [phone] for Medicare purposes. For Medicare only, by signing this I certify the plan of care. Please let me know if there are questions or concerns regarding this plan of care. Physician Signature: Date: ____ 09/25/24 1335 CC: Dr. Edis Harding MD [facility] Signed Normal [facility] Basic Metabolic Profile (BMP )on 07-11-2024 BUN/CRE 27.7 RATIO High 10- [facility] Comment on above: Performed By: #### P SSI #### [facility] [address] [place], [address] CA,Total 10.1 mg/dL Normal 8.5-10.1 [facility] Comment on above: Performed By: #### P SSI #### [facility] [address] [place], [address] Chloride [Moles/Vol] 106 mmol/L Normal 98-107 [facility] Comment on above: Performed By: #### P SSI #### [facility] [address] [place], [address] CO2 [Moles/Vol] 26.0 mmol/L Normal 21.0-32.0 [facility] Comment on above: Performed By: #### P SSI #### [facility] [address] [place], [address] Creatinine [Mass/Vol] 0.79 mg/dL Normal 0.55-1.02 [facility] Comment on above: Result Comment: The validity of the calculated GFR GFRAA in patients over 70 years has not been determined. Clinical correlation is essential. Performed By: #### P SSI #### [facility] [address] [place], [address] ECRCL 48.18 ml/min Normal [facility] Comment on above: Performed By: #### P SSI #### [facility] [address] [place], [address] EST GFR - AA 88 mL/min Normal >60 [facility] Comment on above: Result Comment: Afri can Sudanese GFR Calc Performed By: #### P SSI #### [facility] [address] [place], [address] GAP 7 Normal 5-15 [facility] Comment on above: Performed By: #### P SSI #### [facility] [address] [place], [address] GFR/1.73 sq M.predicted among non-blacks MDRD (S/P/Bld) [Vol rate/Area] 73 mL/min/{1.73_m2} Normal >60 [facility] Comment on above: Result Comment: Non- GFR Calc Performed By: #### P SSI #### [facility] [address] [place], [address] Glucose [Mass/Vol] 134 mg/dL High 74-106 [facility] Comment on above: Result Comment: Fast ing Glucose result greater than or equal to 126 mg/dL suggests DIABETES MELLITUS per A.D.A. criteria. Performed By: #### P SSI #### [facility] [address] [place], [address] Potassium [Moles/Vol] 3.8 mmol/L Normal 3.5-5.1 [facility] Comment on above: Performed By: #### P SSI #### [facility] [address] [place], [address] Sodium [Moles/Vol] 139 mmol/L Normal 136-145 [facility] Comment on above: Performed By: #### P SSI #### [facility] [address] [place], [address] Urea nitrogen [Mass/Vol] 22 mg/dL High 7-18 [facility] Comment on above: Performed By: #### P SSI #### [facility] [address] [place], [address] Brain/Head without Contrasto n 07-11-2024 Brain/Head without Contrast [facility] Imaging Services [address] [facility] [place] [place] [address] [phone] Brain/Head without Contrast MR#: [id number] Acct: [id number] Name: SHENA HAMILTON Rep #: [id number] : 1935 F 88 From: Hector Venegas MD PCP: Dr. Edis Harding MD Status: [facility] Study: Brain/Head without Contrast Date of Exam: 06/27 04/19 Exam# [id number] Ordering Dr: Ron Fairbanks DO [id number] EXAM: CT HEAD WITHOUT INTRAVENOUS CONTRAST CLINICAL INDICATION: headache TECHNIQUE: Multiple axial images were obtained of the head without intravenous contrast. This CT exam was performed using one or more of the following dose reduction techniques: automated exposure control, adjustment of the mA and/or kV according to patient size, and/or use of iterative reconstruction technique. RADIATION DOSE: CTDIvol = 44.99 mGy, DLP = 880.47 mGy-cm COMPARISON: Head CT 04/22/2006 FINDINGS: BRAIN AND EXTRA-AXIAL SPACES: Unremarkable. No intra- or extra-axial hemorrhage. No evidence of acute infarct. No intracranial mass or mass effect. There is preservation of the murphy/white matter interface. Posterior fossa structures are unremarkable. Ventricles are appropriate for age. No hydrocephalus. Basal cisterns are patent. BONES/JOINTS: Unremarkable. No discrete lytic or blastic abnormalities. SINUSES: Unremarkable as visualized. Clear. MASTOID AIR CELLS: Unremarkable. Clear. ORBITS: Visualized globes, extraocular muscles, optic nerves and retrobulbar fat appear unremarkable. CT/Brain/Head without Contrast IMPRESSION: Negative head/brain CT without intravenous contrast. Electronically Signed: Hector Venegas MD at 23:43 EDT , CC: Dr. Edis Harding MD; Dr. Ron Fairbanks DO Energy Advisor: Signed Normal [facility] CBC W/Diff, Automatedon 06-27 Absolute Lymph 0.66 X10 3/uL Low 0.83-4.51 [facility] Comment on above: Performed By: #### P SSI #### [facility] [address] [place], [address] Absolute Neut 6.0 X10 3/uL Normal 2.0-7.7 [facility] Comment on above: Performed By: #### P SSI #### [facility] [address] [place], [address] Basophils/100 WBC (Bld) 0.1 % Normal 0-1 W [facility] Comment on above: Performed By: #### P SSI #### [facility] [address] [place], [address] Eosinophils/100 WBC (Bld) 0.0 % Normal 0-5 [facility] Comment on above: Performed By: #### P SSI #### [facility] [address] [place], [address] Erythrocyte distribution width (RBC) [Ratio] 14.6 % Normal 11.6-14.6 [facility] Comment on above: Performed By: #### P SSI #### [facility] [address] [place], [address] Hematocrit (Bld) [Volume fraction] 43.5 % Normal 37-47 [facility] Comment on above: Performed By: #### P SSI #### [facility] [address] [place], [address] Hemoglobin (Bld) [Mass/Vol] 14.4 g/dL Normal 12.0-15.0 [facility] Comment on above: Performed By: #### P SSI #### [facility] [address] [place], [address] IG% 0.300 Normal 0.0-0.9 [facility] Comment on above: Result Comment: IG% - Immature Granulocytes (promyelocytes, myelocytes and metamyelocytes) > 1% indicates that a LEFT SHIFT is Present. Performed By: #### P SSI #### [facility] [address] [place], [address] Lymphocytes/100 WBC (Bld) 9.3 % Low 19-41 [facility] Comment on above: Performed By: #### P SSI #### [facility] [address] [place], [address] MCH (RBC) [Entitic mass] 28.1 pg Normal 27.0-32.0 [facility] Comment on above: Performed By: #### P SSI #### [facility] [address] [place], [address] MCHC (RBC) [Mass/Vol] 33.1 g/dL Normal 32-36 [facility] Comment on above: Performed By: #### P SSI #### [facility] [address] [place], [address] MCV (RBC) [Entitic vol] 85.0 fL Normal 81-99 [facility] Comment on above: Performed By: #### P SSI #### [facility] [address] [place], [address] Monocytes/100 WBC (Bld) 5.6 % Normal 0-10 [facility] Comment on above: Performed By: #### P SSI #### [facility] [address] [place], [address] Neutrophils/100 WBC (Bld) 84.7 % High 47-70 [facility] Comment on above: Performed By: #### P SSI #### [facility] [address] [place], [address] Nucleated RBC (Bld) [#/Vol] 0 10*3/uL Normal 0-5 [facility] Comment on above: Performed By: #### P SSI #### [facility] [address] [place], [address] Platelet mean volume (Bld) [Entitic vol] 9.5 fL Normal 6.2-12.0 [facility] Comment on above: Performed By: #### P SSI #### [facility] [address] [place], [address] Platelets (Bld) [#/Vol] 281 10*3/uL Normal 150-450 [facility] Comment on above: Performed By: #### P SSI #### [facility] [address] [place], [address] RBC (Bld) [#/Vol] 5.12 10*6/uL Normal 4.2-5.4 [facility] Comment on above: Performed By: #### P SSI #### [facility] [address] [place], [address] RDW SD 45.0 fl High 35.1-43.9 [facility] Comment on above: Performed By: #### P SSI #### [facility] [address] [place], [address] WBC (Bld) [#/Vol] 7.1 10*3/uL Normal 4.4-11.0 [facility] Comment on above: Performed By: #### P SSI #### [facility] [address] [place], [place], [address] Emergency Department Summary on 07-11-2024 Emergency Department Summary [facility] Medical Records Department [address] [place] [address] Emergency Department Summary 07/11/24 MR#: [id number] Acct: [id number] Name: SHENA HAMILTON Rep #: [id number] : 1935 88 From: Ron Fairbanks DO PCP: Dr. Edis Harding MD Status:DEP ER Location: ED HPI History of Present Illness Chief Complaint: Nausea/Vomiting Informant: patient Narrative Narrative: 88-year-old female presenting to the emergency room with vomiting and headache. Patient states that approximately 0400 hrs. she developed vomiting. She states that she has a history of episodes of vomiting this feels different. Typically she can vomit and feel better for couple hours but this time whenever she vomits she does not feel better. After several hours went by the patient developed a frontal headache as well as occipital headache. She denies any neurologic deficits. She denies any diarrhea in fact she notes a normal bowel movement this morning. She does not feel bloated or distended. No reported fevers. [facility] Medical History Kidney stones Loss of hearing Vaginitis Discoloration of skin Bladder disease Restless legs Migraine headache Difficulty swallowing Vomiting Leg cramps History of pain when walking History of echocardiogram Wears dentures Wears glasses Post-menopausal Cancer Depression Anxiety Alcohol use Ambulates with cane Arthritis High cholesterol Back pain Former smoker History of edema History of stress test FH: total knee replacement Hypertension Home Medications ???Medication ???Instructions ???Recorded ???Last Taken ???Type simvastatin 20 mg tablet 20 mg PO QHS cholesterol 10/22/13 10/21/23 History timolol maleate 0.5 % eye drops 1 drp DAILY eye health 11/01/13 10/21/23 History lisinopril 10 mg tablet 40 mg PO QHS blood pressure 04/10/19 05/15/24 History metoprolol succinate 25 mg 12.5 mg (1/2 x 25 mg) PO DAILY #30 10/24/23 05/16/24 Rx tablet,extended release 24 hr tabs oxycodone-acetaminophen 5 mg-325 1 tab PO Q6H PRN pain 5 days #20 03/29/24 Unknown Rx mg tablet (Percocet) tabs furosemide 40 mg tablet 40 mg PO DAILY PRN PRN edema 05/07/24 Unknown History ketorolac 10 mg tablet 10 mg PO Q6H PRN PRN pain 05/07/24 Unknown History amlodipine 5 mg tablet 5 mg PO DAILY 05/17/24 05/16/24 History ciprofloxacin HCl 500 mg tablet 500 mg PO BID #6 tabs 05/17/24 Unknown Rx (Cipro) ibuprofen 400 mg tablet 400 mg PO Q6H PRN fever or pain 05/17/24 Unknown Rx #20 tabs ondansetron 4 mg disintegrating 4 mg PO Q6H PRN PRN Nausea #15 tabs 07/11/24 Unknown Rx tablet Allergy/AdvReac Type Severity Reaction Status Date / Time morphine AdvReac Intermediate Inflammation Verified 07/11/24 21:57 of vein Surgical History Hx of myomectomy Hx of colonoscopy Hx of external ear surgery Hx of bilateral cataract extraction Hx of dilation and curettage H/O removal of cyst H/O breast biopsy History of abdominal surgery Social History household members: spouse Smoking Status: Former smoker alcohol intake: current ROS ROS ED Constitutional Constitutional ED: Denies chills, fever(s) or weight loss Eyes Eyes: Denies change in vision or diplopia ENT ENT ED: Denies ear pain, rhinorrhea or sore throat Cardiovascular Cardiovascular: Denies chest pain, orthopnea, palpitations or racing heartbeat Respiratory/Chest Respiratory/Chest: Denies cough, dyspnea or orthopnea Gastrointestinal Gastrointestinal: Reports nausea and vomiting; Denies abdominal pain or diarrhea Genitourinary Genitourinary ED: Denies dysuria, hematuria or urinary frequency Musculoskeletal Musculoskeletal: Denies arthralgias or myalgias Integumentary Denies abscess or rash Neurologic Neurologic: Reports headache(s); Denies paresthesias or weakness Psychiatric Psychiatric: Denies anxiety, depression, suicidal ideation or suicidal thoughts Endocrine Endocrinology: Denies polydipsia, polyphagia or polyuria Allergic/Immunologic Allergic/Immunologic ED: Denies mouth swelling, tongue swelling or urticaria EXAM Physical Exam Const Vital Signs: 07/11/24 21:57 Temperature 97.4 F L Temperature Source Temporal Pulse Rate 85 Respiratory Rate 16 Blood Pressure 132/58 H Blood Pressure Mean 82 Pulse Ox 97 Oxygen Delivery Method Room Air Positive well nourished and well developed General Appearance ED: well developed HEENT Reports normocephalic, head/scalp atraumatic and moist mucous membranes Eyes PERRL and EOMs intact bilaterally Neck no lymphadenopathy, supple and no JVD Resp normal respiratory effort a (more content not included)... Normal [facility] Lipaseon 07-11-2024 Lipase [Catalytic activity/Vol] 39 U/L Normal 13-75 [facility] Comment on above: Result Comment: Debbie campbell note: LIPASE revised reference range effective 23. New Lipase methodology. Expected to produce lower values than the previous assay method. NEW Reference Range: 13 - 75 U/L Performed By: #### P SSI #### [facility] [address] [place], [place], [id number] Liver Profileon 07-11-2024 Albumin [Mass/Vol] 3.7 g/dL Normal 3.2-5.0 [facility] Comment on above: Performed By: #### P SSI #### [facility] [address] [place], [place], [id number] ALK P 76 U/L Normal 45-117 [facility] Comment on above: Performed By: #### P SSI #### [facility] [address] [place], [place], [address] ALT [Catalytic activity/Vol] 13 U/L Normal 13-56 [facility] Comment on above: Performed By: #### P SSI #### [facility] [address] [place], [address] AST [Catalytic activity/Vol] 16 U/L Normal 15-37 [facility] Comment on above: Performed By: #### P SSI #### [facility] [address] [place], [address] Bilirubin [Mass/Vol] 0.60 mg/dL Normal 0.20-1.00 [facility] Comment on above: Result Comment: For patients on eltrombopag therapy, use of Dimension [place] TBIL is not recommended. Performed By: #### P SSI #### [facility] [address] [place], [address] Bilirubin.direct [Mass/Vol] 0.20 mg/dL Normal 0.00-0.30 [facility] Comment on above: Performed By: #### P SSI #### [facility] [address] [place], [address] Globulin (S) [Mass/Vol] 3.3 g/dL Normal 2.2-4.2 [facility] Comment on above: Performed By: #### P SSI #### [facility] [address] [place], [address] T PROT 7.0 g/dL Normal 6.4-8.2 [facility] Comment on above: Performed By: #### P SSI #### [facility] [address] [place], [address] Basic Metabolic Profile (BMP )on 06-10-2024 BUN/CRE 29.1 RATIO High 10-20 [facility] Comment on above: Order Comment: Order Date: 04/04/24Order Info: 0667-1 - BMP Performed By: #### P SSI #### [facility] [address] [place], [address] CA,Total 9.8 mg/dL Normal 8.5-10.1 [facility] Comment on above: Order Comment: Order Date: 04/04/24Order Info: 666-11 - BMP Performed By: #### P SSI #### [facility] [address] [place], [address] Chloride [Moles/Vol] 109 mmol/L High 98-107 [facility] Comment on above: Order Comment: Order Date: 04/04/24Order Info: 666-11 - BMP Performed By: #### P SSI #### [facility] [address] [place], [address] CO2 [Moles/Vol] 26.0 mmol/L Normal 21.0-32.0 [facility] Comment on above: Order Comment: Order Date: 04/04/24Order Info: 666-11 - BMP Performed By: #### P SSI #### [facility] [address] [place], [address] Creatinine [Mass/Vol] 0.86 mg/dL Normal 0.55-1.02 [facility] Comment on above: Order Comment: Order Date: 04/04/24Order Info: 666-11 - BMP Result Comment: The validity of the calculated GFR GFRAA in patients over 70 years has not been determined. Clinical correlation is essential. Performed By: #### P SSI #### [facility] [address] [place], [address] EST GFR - AA 80 mL/min Normal >60 [facility] Comment on above: Order Comment: Order Date: 04/04/24Order Info: 666-11 - BMP Result Comment: Afri can Sudanese GFR Calc Performed By: #### P SSI #### [facility] [address] [place], [address] GAP 7 Normal 5-15 [facility] Comment on above: Order Comment: Order Date: 04/04/24Order Info: 666-11 - BMP Performed By: #### P SSI #### [facility] [facility] [address] [place], [address] GFR/1.73 sq M.predicted among non-blacks MDRD (S/P/Bld) [Vol rate/Area] 66 mL/min/{1.73_m2} Normal >60 [facility] Comment on above: Order Comment: Order Date: 04/04/24Order Info: 666-11 - BMP Result Comment: Non- GFR Calc Performed By: #### P SSI #### [facility] [address] [place], [id number] Glucose [Mass/Vol] 112 mg/dL High 74-106 [facility] Comment on above: Order Comment: Order Date: 04/04/24Order Info: 666-11 - BMP Result Comment: Fast ing Glucose result from 100 to 125 mg/dL suggests IMPAIRED HOMEOSTASIS per A.D.A. criteria. Performed By: #### P SSI #### [facility] [address] [place], [place], [id number] Potassium [Moles/Vol] 4.0 mmol/L Normal 3.5-5.1 [facility] Comment on above: Order Comment: Order Date: 04/04/24Order Info: 666-11 - BMP Result Comment: Slig ht Hemolysis, Result may be falsely increased. Performed By: #### P SSI #### [facility] [address] [place], [id number] Sodium [Moles/Vol] 142 mmol/L Normal 136-145 [facility] Comment on above: Order Comment: Order Date: 04/04/24Order Info: 666-11 - BMP Performed By: #### P SSI #### [facility] [address] [place], [address] Urea nitrogen [Mass/Vol] 25 mg/dL High 7-18 [facility] Comment on above: Order Comment: Order Date: 04/04/24Order Info: 666-11 - BMP Performed By: #### P SSI #### [facility] [address] [place], [address] Absolute lymphocyte countOrd ered By: Nitin Astorga on 03-29-2024 Lymphocytes Auto (Unsp spec) [#/Vol] 1.09 10*3/uL 0.83-4.51 [facility] Automated lymphocyte count a s percentage of total leukocytesOrdered By: Nitin Astorga on 03-29-2024 Lymphocytes/100 WBC Auto (Unsp spec) 15.6 % 19-41 [facility] Basophil percentageOrdered B y: Nitin Astorga on 03-29-2024 Basophil percentage 0 SEEN /hpf 0-5 [facility] Basophils/100 WBC (Bld) 0.4 % 0-1 [facility] Chloride [Moles/Vol] 108 mmol/L 98-107 [facility] Eosinophils/100 WBC (Bld) 1.1 % 0-5 [facility] Glucose [Mass/Vol] 105 mg/dL 74-106 [facility] Comment on above: Fasting Glucose resu lt from 100 to 125 mg/dL suggests IMPAIRED HOMEOSTASIS per A.D.A. criteria. Hemoglobin (Bld) [Mass/Vol] 11.9 g/dL 12.0-15.0 [facility] Monocytes/100 WBC (Bld) 8.7 % 0-10 [facility] Neutrophils (Bld) [#/Vol] 5.2 10*3/uL 2.0-7.7 [facility] Neutrophils/100 WBC (Bld) 73.9 % 47-70 [facility] Potassium [Moles/Vol] 3.8 mmol/L 3.5-5.1 [facility] Sodium [Moles/Vol] 139 mmol/L 136-145 [facility] WBC (Bld) [#/Vol] 7.0 10*3/uL 4.4-11.0 [facility] Bilirubin Test strip Ql (U)O rdered By: Nitin Astorga on 03-29-2024 Bilirubin Ql (U) Negative Negative [facility] Determination of erythrocyte mean corpuscular volume (MCV)Ordered By: Nitin Astorga on 03-29-2024 MCV (RBC) [Entitic vol] 82.8 fL 81-99 [facility] Erythrocyte distribution wid th ratioOrdered By: Nitin Astorga on 03-29-2024 Erythrocyte distribution width (RBC) [Ratio] 14.1 % 11.6-14.6 [facility] Erythrocyte distribution wid th standard deviationOrdered By: Nitin Astorga on 03-29-2024 Erythrocyte distribution width (RBC) [Entitic vol] 42.5 fL 35.1-43.9 [facility] Hematocrit Auto (Bld) [Volum e fraction]Ordered By: Nitin Astorga on 03-29-2024 Hematocrit (Bld) [Volume fraction] 36.5 % 37-47 [facility] Immature granulocytes/100 WB C Auto (Bld)Ordered By: Nitin Astorga on 03-29-2024 Immature granulocytes/100 WBC (Bld) 0.300 % 0.0-0.9 [facility] Comment on above: IG% - Immature Granu locytes (promyelocytes, myelocytes and metamyelocytes) > 1% indicates that a LEFT SHIFT is Present. Ketones Test strip Ql (U)Ord ered By: Nitin Astorga on 03-29-2024 Ketones Ql (U) 15 mg/dl Negative [facility] - Chemistry and C hemistry - challengeOrdered By: Nitin Astorga on 03-29-2024 CO2 [Moles/Vol] 26.0 mmol/L 21.0-32.0 [facility] Urea nitrogen/Creatinine [Mass ratio] 18.7 mg/mg 10-20 [facility] - Hematology and Cell countsOrdered By: Nitin Astorga on 03-29-2024 MCH (RBC) [Entitic mass] 27.0 pg 27.0-32.0 [facility] MCHC (RBC) [Mass/Vol] 32.6 g/dL 32-36 [facility] Nucleated RBC/100 WBC (Bld) [Ratio] 0 % 0-5 [facility] Platelet mean volume (Bld) [Entitic vol] 10.3 fL 6.2-12.0 [facility] Platelets (Bld) [#/Vol] 191 10*3/uL 150-450 [facility] Mucus LM Ql (Urine sed)Order ed By: Nitin Astorga on 03-29-2024 Mucus Ql (Urine sed) 0 SEEN /hpf [facility] Nitrite Test strip Ql (U)Ord ered By: Nitin Astorga on 03-29-2024 Nitrite Ql (U) Negative Negative [facility] No Panel InformationOrdered By: Nitin Astogra on 03-29-2024 Urine RBC 5-10 SEEN /hpf 0-5 [facility] Estimated Creatinine Clearance Calc 27.83 ml/min [facility] Estimated GFR (MDRD) Amer 42 mL/min >60 [facility] Comment on above: GFR Calc Estimated GFR (MDRD) Non-Af Amer 35 mL/min >60 [facility] Comment on above: Non- GFR Calc Protein Test strip Ql (U)Ord ered By: Nitin Astorga on 03-29-2024 Protein Ql (U) 30 mg/dl Negative [facility] RBC Auto (Bld) [#/Vol]Ordere d By: Nitin Astorga on 03-29-2024 RBC (Bld) [#/Vol] 4.41 10*6/uL 4.2-5.4 [facility] Serum or plasma calcium fina urement (mass/volume)Ordered By: Nitin Astorga on 03-29-2024 Calcium [Mass/Vol] 9.6 mg/dL 8.5-10.1 [facility] Serum or plasma creatinine m easurement (mass/volume)Ordered By: Nitin Astorga on 03-29-2024 Creatinine [Mass/Vol] 1.50 mg/dL 0.55-1.02 [facility] Comment on above: The validity of the calculated GFR & GFRAA in patients over 70 years has not been determined. Clinical correlation is essential. Serum or plasma urea nitroge n measurement (mass/volume)Ordered By: Nitin Astorga on 03-29-2024 Urea nitrogen [Mass/Vol] 28 mg/dL 7-18 [facility] Squamous epithelial cells de tection in urine sediment by light microscopyOrdered By: Nitin Astorga on 03-29-2024 Epithelial cells.squamous LM Ql (Urine sed) 0-5 SEEN /hpf 5-10 [facility] Thin prep Papanicolaou smear with manual screeningOrdered By: Nitin Astorga on 03-29-2024 Thin prep Papanicolaou smear with manual screening 5 5-15 [facility] Urine blood detectionOrdered By: Nitin Astorga on 03-29-2024 RBC Ql (U) 50 /ul Negative [facility] Urine clarityOrdered By: Per Astorga on 03-29-2024 Clarity (U) Clear Clear [facility] Urine color determinationOrd ered By: Nitin Astorga on 03-29-2024 Color (U) Yellow Yellow [facility] Urine glucose detectionOrder ed By: Nitin Astorga on 03-29-2024 Glucose Ql (U) Normal mg/dl Normal [facility] Urine leukocyte esterase det ection by dipstickOrdered By: Nitin Astorga on 03-29-2024 Leukocyte esterase Test strip Ql (U) Negative Negative [facility] Urine pHOrdered By: Nitin merida on 03-29-2024 pH (U) 6.0 [pH] 5.0 - 8.0 [facility] Urine sediment bacteria coun t by microscopy (number/high power field)Ordered By: Nitin Astorga on 03-29-2024 Bacteria LM.HPF (Urine sed) [#/Area] 0 /[HPF] None Seen [facility] Urine specific gravity measu rementOrdered By: Nitin Astorga on 03-29-2024 Specific gravity (U) [Rel density] 1.015 1.002-1.030 [facility] Urine urobilinogen measureme ntOrdered By: Nitin Astorga on 03-29-2024 Urobilinogen Ql (U) Normal mg/dl Normal [facility] Absolute lymphocyte countOrd ered By: Imani Knight on 03-24-2024 Lymphocytes Auto (Unsp spec) [#/Vol] 2.37 10*3/uL 0.83-4.51 [facility] Automated lymphocyte count a s percentage of total leukocytesOrdered By: Imani Knight on 03-24-2024 Lymphocytes/100 WBC Auto (Unsp spec) 36.7 % 19-41 [facility] Basophil percentageOrdered B y: Imani Knight on 03-24-2024 Basophil percentage 10-25 SEEN /hpf 0-5 [facility] Basophils/100 WBC (Bld) 0.5 % 0-1 [facility] Bilirubin [Mass/Vol] 0.60 mg/dL 0.20-1.00 [facility] Comment on above: For patients on eltr ombopag therapy, use of Dimension [place] TBIL is not recommended. Chloride [Moles/Vol] 107 mmol/L 98-107 [facility] Eosinophils/100 WBC (Bld) 2.5 % 0-5 [facility] Glucose [Mass/Vol] 114 mg/dL 74-106 [facility] Comment on above: Fasting Glucose resu lt from 100 to 125 mg/dL suggests IMPAIRED HOMEOSTASIS per A.D.A. criteria. Hemoglobin (Bld) [Mass/Vol] 14.0 g/dL 12.0-15.0 [facility] Monocytes/100 WBC (Bld) 7.4 % 0-10 [facility] Neutrophils (Bld) [#/Vol] 3.4 10*3/uL 2.0-7.7 [facility] Neutrophils/100 WBC (Bld) 52.6 % 47-70 [facility] Potassium [Moles/Vol] 3.4 mmol/L 3.5-5.1 [facility] Protein [Mass/Vol] 6.9 g/dL 6.4-8.2 [facility] Sodium [Moles/Vol] 141 mmol/L 136-145 [facility] WBC (Bld) [#/Vol] 6.5 10*3/uL 4.4-11.0 [facility] Bilirubin Test strip Ql (U)O rdered By: Imani Knight on 03-24-2024 Bilirubin Ql (U) Negative Negative [facility] Culture, urineOrdered By: Kyle Knight on 03-24-2024 Bacteria identified Cx Nom (U) Presumptive E. coli [facility] Determination of erythrocyte mean corpuscular volume (MCV)Ordered By: Imani Knight on 03-24-2024 MCV (RBC) [Entitic vol] 83.7 fL 81-99 [facility] Direct bilirubinOrdered By: Imani Knight on 03-24-2024 Bilirubin.direct [Mass/Vol] 0.18 mg/dL 0.00-0.30 [facility] Erythrocyte distribution wid th ratioOrdered By: Imani Knight on 03-24-2024 Erythrocyte distribution width (RBC) [Ratio] 14.1 % 11.6-14.6 [facility] Erythrocyte distribution wid th standard deviationOrdered By: Imani Knight on 03-24-2024 Erythrocyte distribution width (RBC) [Entitic vol] 42.6 fL 35.1-43.9 [facility] Hematocrit Auto (Bld) [Volum e fraction]Ordered By: Imani Knight on 03-24-2024 Hematocrit (Bld) [Volume fraction] 42.7 % 37-47 [facility] Immature granulocytes/100 WB C Auto (Bld)Ordered By: Imanicrys Knight on 03-24-2024 Immature granulocytes/100 WBC (Bld) 0.300 % 0.0-0.9 [facility] Comment on above: IG% - Immature Granu locytes (promyelocytes, myelocytes and metamyelocytes) > 1% indicates that a LEFT SHIFT is Present. Ketones Test strip Ql (U)Ord ered By: Imani Knight on 03-24-2024 Ketones Ql (U) Negative Negative [facility] Laboratory - Chemistry and C hemistry - challengeOrdered By: Imani Knight on 03-24-2024 ALP [Catalytic activity/Vol] 81 U/L 45-117 [facility] ALT [Catalytic activity/Vol] 16 U/L 13-56 [facility] CO2 [Moles/Vol] 28.0 mmol/L 21.0-32.0 [facility] Globulin (S) [Mass/Vol] 3.0 g/dL 2.2-4.2 [facility] Lipase [Catalytic activity/Vol] 44 U/L 13-75 [facility] Comment on above: Please note:LIPASE r evised reference range effective 23. New Lipase methodology. Expected to produce lower values than the previous assay method. NEW Reference Range: 13 - 75 U/L Urea nitrogen/Creatinine [Mass ratio] 19.8 mg/mg 10-20 [facility] Laboratory - Hematology and Cell countsOrdered By: Imani Knight on 03-24-2024 MCH (RBC) [Entitic mass] 27.5 pg 27.0-32.0 [facility] MCHC (RBC) [Mass/Vol] 32.8 g/dL 32-36 [facility] Nucleated RBC/100 WBC (Bld) [Ratio] 0 % 0-5 [facility] Platelet mean volume (Bld) [Entitic vol] 10.4 fL 6.2-12.0 [facility] Platelets (Bld) [#/Vol] 321 10*3/uL 150-450 [facility] Mucus LM Ql (Urine sed)Order ed By: Imani Knight on 03-24-2024 Mucus Ql (Urine sed) 0 SEEN /hpf [facility] Nitrite Test strip Ql (U)Ord ered By: Imani Knight on 03-24-2024 Nitrite Ql (U) Positive Negative [facility] No Panel InformationOrdered By: Imani Knight on 03-24-2024 Urine RBC 10-25 SEEN /hpf 0-5 [facility] Estimated Creatinine Clearance Calc 30.59 ml/min [facility] Estimated GFR (MDRD) Amer 52 mL/min >60 [facility] Comment on above: GFR Calc Estimated GFR (MDRD) Non-Af Amer 43 mL/min >60 [facility] Comment on above: Non- GFR Calc Protein Test strip Ql (U)Ord ered By: Imani Knight on 03-24-2024 Protein Ql (U) 100 mg/dl Negative [facility] RBC Auto (Bld) [#/Vol]Ordere d By: Imani Knight on 03-24-2024 RBC (Bld) [#/Vol] 5.10 10*6/uL 4.2-5.4 [facility] Serum or plasma calcium fina urement (mass/volume)Ordered By: Imani Knight on 03-24-2024 Calcium [Mass/Vol] 9.9 mg/dL 8.5-10.1 [facility] Serum or plasma creatinine m easurement (mass/volume)Ordered By: Imani Knight on 03-24-2024 Creatinine [Mass/Vol] 1.26 mg/dL 0.55-1.02 [facility] Comment on above: The validity of the calculated GFR & GFRAA in patients over 70 years has not been determined. Clinical correlation is essential. Serum or plasma urea nitroge n measurement (mass/volume)Ordered By: Imani Knight on 03-24-2024 Urea nitrogen [Mass/Vol] 25 mg/dL 7-18 [facility] Squamous epithelial cells de tection in urine sediment by light microscopyOrdered By: Imani Knight on 03-24-2024 Epithelial cells.squamous LM Ql (Urine sed) 0 SEEN /hpf 5-10 [facility] Thin prep Papanicolaou smear with manual screeningOrdered By: Imani Knight on 03-24-2024 Thin prep Papanicolaou smear with manual screening 3.9 g/dL 3.2-5.0 [facility] Thin prep Papanicolaou smear with manual screening 17 U/L 15-37 [facility] Thin prep Papanicolaou smear with manual screening 6 5-15 [facility] Transitional cells detection in urine sediment by light microscopyOrdered By: Imani Knight on 03-24-2024 Transitional cells LM Ql (Urine sed) 0-5 SEEN /hpf 0-5 [facility] Urine blood detectionOrdered By: Imani Knight on 03-24-2024 RBC Ql (U) 250 /ul Negative [facility] Urine clarityOrdered By: Sheila Knight on 03-24-2024 Clarity (U) Cloudy Clear [facility] Urine color determinationOrd ered By: Imani Knight on 03-24-2024 Color (U) Yellow Yellow [facility] Urine glucose detectionOrder ed By: Imani Knight on 03-24-2024 Glucose Ql (U) Normal mg/dl Normal [facility] Urine leukocyte esterase det ection by dipstickOrdered By: Imani Knight on 03-24-2024 Leukocyte esterase Test strip Ql (U) 500 /ul Negative [facility] Urine pHOrdered By: Imani Knight on 03-24-2024 pH (U) 6.0 [pH] 5.0 - 8.0 [facility] Urine sediment bacteria coun t by microscopy (number/high power field)Ordered By: Imani Knight on 03-24-2024 Bacteria LM.HPF (Urine sed) [#/Area] 4 /[HPF] None Seen [facility] Urine specific gravity measu rementOrdered By: Imani Knight on 03-24-2024 Specific gravity (U) [Rel density] 1.020 1.002-1.030 [facility] Urine urobilinogen measureme ntOrdered By: Imani Knight on 03-24-2024 Urobilinogen Ql (U) Normal mg/dl Normal [facility] Absolute lymphocyte countOrd ered By: Edis Harding on 02-26-2024 Lymphocytes Auto (Unsp spec) [#/Vol] 1.38 10*3/uL 0.83-4.51 [facility] Amorphous sediment detection in urine sediment by light microscopyOrdered By: Edis Harding on 02-26-2024 Amorphous sediment LM Ql (Urine sed) 1+ URATE [facility] Automated lymphocyte count a s percentage of total leukocytesOrdered By: Edis Harding on 02-26-2024 Lymphocytes/100 WBC Auto (Unsp spec) 31.9 % 19-41 [facility] Basophil percentageOrdered B y: Edis Harding on 02-26-2024 Amylase [Catalytic activity/Vol] 50 U/L 25-115 [facility] Basophil percentage 25-50 SEEN /hpf 0-5 [facility] Basophils/100 WBC (Bld) 0.5 % 0-1 [facility] Bilirubin [Mass/Vol] 0.80 mg/dL 0.20-1.00 [facility] Comment on above: For patients on eltr ombopag therapy, use of Dimension [place] TBIL is not recommended. Chloride [Moles/Vol] 109 mmol/L 98-107 [facility] Eosinophils/100 WBC (Bld) 2.1 % 0-5 [facility] Glucose [Mass/Vol] 79 mg/dL 74-106 [facility] Hemoglobin (Bld) [Mass/Vol] 13.2 g/dL 12.0-15.0 [facility] Monocytes/100 WBC (Bld) 8.8 % 0-10 [facility] Neutrophils (Bld) [#/Vol] 2.5 10*3/uL 2.0-7.7 [facility] Neutrophils/100 WBC (Bld) 56.7 % 47-70 [facility] Potassium [Moles/Vol] 3.4 mmol/L 3.5-5.1 [facility] Protein [Mass/Vol] 6.8 g/dL 6.4-8.2 [facility] Sodium [Moles/Vol] 142 mmol/L 136-145 [facility] WBC (Bld) [#/Vol] 4.3 10*3/uL 4.4-11.0 [facility] Bilirubin Test strip Ql (U)O rdered By: Edis Harding on 02-26-2024 Bilirubin Ql (U) Negative Negative [facility] Culture, urineOrdered By: Marisol Harding on 02-26-2024 Bacteria identified Cx Nom (U) Presumptive E. coli [facility] Determination of erythrocyte mean corpuscular volume (MCV)Ordered By: Edis Harding on 02-26-2024 MCV (RBC) [Entitic vol] 84.3 fL 81-99 [facility] Erythrocyte distribution wid th ratioOrdered By: Edis Harding on 02-26-2024 Erythrocyte distribution width (RBC) [Ratio] 14.6 % 11.6-14.6 [facility] Erythrocyte distribution wid th standard deviationOrdered By: Edis Harding on 02-26-2024 Erythrocyte distribution width (RBC) [Entitic vol] 44.3 fL 35.1-43.9 [facility] Hematocrit Auto (Bld) [Volum e fraction]Ordered By: Edis Harding on 02-26-2024 Hematocrit (Bld) [Volume fraction] 41.2 % 37-47 [facility] Immature granulocytes/100 WB C Auto (Bld)Ordered By: Edis Harding on 02-26-2024 Immature granulocytes/100 WBC (Bld) 0.000 % 0.0-0.9 [facility] Comment on above: IG% - Immature Granu locytes (promyelocytes, myelocytes and metamyelocytes) > 1% indicates that a LEFT SHIFT is Present. Ketones Test strip Ql (U)Ord ered By: Edis Harding on 02-26-2024 Ketones Ql (U) 5 mg/dl Negative [facility] Laboratory - Chemistry and C hemistry - challengeOrdered By: Edis Harding on 02-26-2024 Albumin/Globulin [Mass ratio] 1.2 {ratio} 0.9-2.4 [facility] ALP [Catalytic activity/Vol] 80 U/L 45-117 [facility] ALT [Catalytic activity/Vol] 18 U/L 13-56 [facility] CO2 [Moles/Vol] 27.0 mmol/L 21.0-32.0 [facility] Globulin (S) [Mass/Vol] 3.1 g/dL 2.2-4.2 [facility] Lipase [Catalytic activity/Vol] 23 U/L 13-75 [facility] Comment on above: Please note:LIPASE r evised reference range effective 23. New Lipase methodology. Expected to produce lower values than the previous assay method. NEW Reference Range: 13 - 75 U/L Urea nitrogen/Creatinine [Mass ratio] 26.9 mg/mg 10-20 [facility] Laboratory - Hematology and Cell countsOrdered By: Edis Harding on 02-26-2024 MCH (RBC) [Entitic mass] 27.0 pg 27.0-32.0 [facility] MCHC (RBC) [Mass/Vol] 32.0 g/dL 32-36 [facility] Nucleated RBC/100 WBC (Bld) [Ratio] 0 % 0-5 [facility] Platelet mean volume (Bld) [Entitic vol] 10.5 fL 6.2-12.0 [facility] Platelets (Bld) [#/Vol] 261 10*3/uL 150-450 [facility] Mucus LM Ql (Urine sed)Order ed By: Edis Harding on 02-26-2024 Mucus Ql (Urine sed) 0 SEEN /hpf [facility] Nitrite Test strip Ql (U)Ord ered By: Edis Harding on 02-26-2024 Nitrite Ql (U) Positive Negative [facility] No Panel InformationOrdered By: Edis Harding on 02-26-2024 Estimated GFR (MDRD) Amer 90 mL/min >60 [facility] Comment on above: GFR Calc Estimated GFR (MDRD) Non-Af Amer 74 mL/min >60 [facility] Comment on above: Non- GFR Calc Urine RBC 10-25 SEEN /hpf 0-5 [facility] Protein Test strip Ql (U)Ord ered By: Edis Harding on 02-26-2024 Protein Ql (U) 30 mg/dl Negative [facility] RBC Auto (Bld) [#/Vol]Ordere d By: Edis Harding on 02-26-2024 RBC (Bld) [#/Vol] 4.89 10*6/uL 4.2-5.[address] [facility] Serum or plasma calcium fina urement (mass/volume)Ordered By: Edis Harding on 02-26-2024 Calcium [Mass/Vol] 10.1 mg/dL 8.5-10.1 [facility] Serum or plasma creatinine m easurement (mass/volume)Ordered By: Edis Harding on 02-26-2024 Creatinine [Mass/Vol] 0.78 mg/dL 0.55-1.02 [facility] Comment on above: The validity of the calculated GFR & GFRAA in patients over 70 years has not been determined. Clinical correlation is essential. Serum or plasma urea nitroge n measurement (mass/volume)Ordered By: Edis Harding on 02-26-2024 Urea nitrogen [Mass/Vol] 21 mg/dL 7-18 [facility] Squamous epithelial cells de tection in urine sediment by light microscopyOrdered By: Edis Harding on 02-26-2024 Epithelial cells.squamous LM Ql (Urine sed) 0-5 SEEN /hpf 5-10 [facility] Thin prep Papanicolaou smear with manual screeningOrdered By: Edis Harding on 02-26-2024 Thin prep Papanicolaou smear with manual screening 3.7 g/dL 3.2-5.0 [facility] Thin prep Papanicolaou smear with manual screening 21 U/L 15-37 [facility] Thin prep Papanicolaou smear with manual screening 6 5-15 [facility] Urine blood detectionOrdered By: Edis Harding on 02-26-2024 RBC Ql (U) 250 /ul Negative [facility] Urine clarityOrdered By: Lowell Harding on 02-26-2024 Clarity (U) Cloudy Clear [facility] Urine color determinationOrd ered By: Edis Harding on 02-26-2024 Color (U) Yellow Yellow [facility] Urine glucose detectionOrder ed By: Edis Harding on 02-26-2024 Glucose Ql (U) Normal mg/dl Normal [facility] Urine leukocyte esterase det ection by dipstickOrdered By: Edis Harding on 02-26-2024 Leukocyte esterase Test strip Ql (U) 500 /ul Negative [facility] Urine pHOrdered By: David Harding on 02-26-2024 pH (U) 5.0 [pH] 5.0 - 8.0 [facility] Urine sediment bacteria coun t by microscopy (number/high power field)Ordered By: Edis Harding on 02-26-2024 Bacteria LM.HPF (Urine sed) [#/Area] RARE /hpf None Seen [facility] Urine specific gravity measu rementOrdered By: Edis Harding on 02-26-2024 Specific gravity (U) [Rel density] 1.025 1.002-1.030 [facility] Urine urobilinogen measureme ntOrdered By: Edis Harding on 02-26-2024 Urobilinogen Ql (U) 1 mg/dl Normal [facility] Basophil percentageOrdered B y: Harley Harding on 02-19-2024 Basophil percentage 2.9 mg/dL 2.5-4.9 [facility] Chloride [Moles/Vol] 109 mmol/L 98-107 [facility] Glucose [Mass/Vol] 91 mg/dL 74-106 [facility] Potassium [Moles/Vol] 3.5 mmol/L 3.5-5.1 [facility] Sodium [Moles/Vol] 140 mmol/L 136-145 [facility] Laboratory - Chemistry and C hemistry - challengeOrdered By: Harley Harding on 02-19-2024 CO2 [Moles/Vol] 25.0 mmol/L 21.0-32.0 [facility] Urea nitrogen/Creatinine [Mass ratio] 29.8 mg/mg 10-20 [facility] No Panel InformationOrdered By: Harley Harding on 02-19-2024 Estimated GFR (MDRD) Amer 101 mL/min >60 [facility] Comment on above: GFR Calc Estimated GFR (MDRD) Non-Af Amer 84 mL/min >60 [facility] Comment on above: Non- GFR Calc Parathyroid Hormone (Intact) 144.9 pg/mL 18.4-80.1 [facility] Vitamin D 25-Hydroxy 44.0 ng/mL [facility] Comment on above: Vitamin D 25(OH) Sta tus Range Deficiency <20 ng/mL (50nmol/L) Insufficiency 20 - 30 ng/mL (50 - 75 nmol/L) Sufficiency 30 - 100 ng/mL (75 - 250 nmol/L) Toxicity >100 ng/mL (>250 nmol/L) Serum or plasma calcium fina urement (mass/volume)Ordered By: Harley Harding on 02-19-2024 Calcium [Mass/Vol] 9.9 mg/dL 8.5-10.1 [facility] Serum or plasma creatinine m easurement (mass/volume)Ordered By: Harley Harding on 02-19-2024 Creatinine [Mass/Vol] 0.70 mg/dL 0.55-1.02 [facility] Comment on above: The validity of the calculated GFR & GFRAA in patients over 70 years has not been determined. Clinical correlation is essential. Serum or plasma thyroid stim ulating hormone (TSH) measurement (units/volume)Ordered By: Harley Harding on 02-19-2024 TSH Qn 0.89 uIU/mL 0.358-3.74 [facility] Serum or plasma urea nitroge n measurement (mass/volume)Ordered By: Harley Harding on 02-19-2024 Urea nitrogen [Mass/Vol] 21 mg/dL 7-18 [facility] Thin prep Papanicolaou smear with manual screeningOrdered By: Harley Harding on 02-19-2024 Thin prep Papanicolaou smear with manual screening 6 5-15 [facility] Basophil percentageOrdered B y: Harley Harding on 12-13-2023 Basophil percentage 3.1 mg/dL 2.5-4.9 [facility] Chloride [Moles/Vol] 113 mmol/L 98-107 [facility] Glucose [Mass/Vol] 81 mg/dL 74-106 [facility] Potassium [Moles/Vol] 3.8 mmol/L 3.5-5.1 [facility] Sodium [Moles/Vol] 143 mmol/L 136-145 [facility] Intact parathyroid hormone ( iPTH) measurementOrdered By: Harley Harding on 12-13-2023 Parathyrin.intact (Tissue fine needle aspirate) [Mass/Vol] 133.0 pg/mL 18.4-80.1 [facility] Laboratory - Chemistry and C hemistry - challengeOrdered By: Harley Harding on 12-13-2023 CO2 [Moles/Vol] 24.0 mmol/L 21.0-32.0 [facility] Magnesium [Mass/Vol] 2.0 mg/dL 1.6-2.6 [facility] Urea nitrogen/Creatinine [Mass ratio] 29.4 mg/mg 10-20 [facility] No Panel InformationOrdered By: Harley Harding on 12-13-2023 Ionized Calcium 5.29 mg/dL 4.36-5.20 [facility] Estimated GFR (MDRD) Amer 94 mL/min >60 [facility] Comment on above: GFR Calc Estimated GFR (MDRD) Non-Af Amer 78 mL/min >60 [facility] Comment on above: Non- GFR Calc Vitamin D 25-Hydroxy 47.4 ng/mL [facility] Comment on above: Vitamin D 25(OH) Sta tus Range Deficiency <20 ng/mL (50nmol/L) Insufficiency 20 - 30 ng/mL (50 - 75 nmol/L) Sufficiency 30 - 100 ng/mL (75 - 250 nmol/L) Toxicity >100 ng/mL (>250 nmol/L) Serum or plasma calcium fina urement (mass/volume)Ordered By: Harley Harding on 12-13-2023 Calcium [Mass/Vol] 9.9 mg/dL 8.5-10.1 [facility] Serum or plasma creatinine m easurement (mass/volume)Ordered By: Harley Harding on 12-13-2023 Creatinine [Mass/Vol] 0.75 mg/dL 0.55-1.02 [facility] Comment on above: The validity of the calculated GFR & GFRAA in patients over 70 years has not been determined. Clinical correlation is essential. Serum or plasma thyroid stim ulating hormone (TSH) measurement (units/volume)Ordered By: Harley Harding on 12-13-2023 TSH Qn 0.44 uIU/mL 0.358-3.74 [facility] Serum or plasma urea nitroge n measurement (mass/volume)Ordered By: Harley Harding on 12-13-2023 Urea nitrogen [Mass/Vol] 22 mg/dL 7-18 [facility] Thin prep Papanicolaou smear with manual screeningOrdered By: Harley Harding on 12-13-2023 Thin prep Papanicolaou smear with manual screening 6 5-15 [facility] Absolute lymphocyte countOrd ered By: Harley Harding on 10-31-2023 Lymphocytes Auto (Unsp spec) [#/Vol] 1.97 10*3/uL 0.83-4.51 [facility] Basophil percentageOrdered B y: Harley Harding on 10-31-2023 Ammonia (P) [Moles/Vol] 17.0 umol/L 11-32 [facility] Amylase [Catalytic activity/Vol] 65 U/L 25-115 [facility] Basophil percentage 25-50 SEEN /hpf 0-5 [facility] Basophils/100 WBC (Bld) 0.9 % 0-1 [facility] Bilirubin [Mass/Vol] 0.80 mg/dL 0.20-1.00 [facility] Comment on above: For patients on eltr ombopag therapy, use of Dimension [place] TBIL is not recommended. Chloride [Moles/Vol] 105 mmol/L 98-107 [facility] Eosinophils/100 WBC (Bld) 2.3 % 0-5 [facility] Glucose [Mass/Vol] 89 mg/dL 74-106 [facility] Neutrophils (Bld) [#/Vol] 3.0 10*3/uL 2.0-7.7 [facility] Neutrophils/100 WBC (Bld) 53.7 % 47-70 [facility] Potassium [Moles/Vol] 4.6 mmol/L 3.5-5.1 [facility] Protein [Mass/Vol] 7.1 g/dL 6.4-8.2 [facility] Sodium [Moles/Vol] 137 mmol/L 136-145 [facility] WBC (Bld) [#/Vol] 5.7 10*3/uL 4.4-11.0 [facility] Bilirubin Test strip Ql (U)O rdered By: Harley Harding on 10-31-2023 Bilirubin Ql (U) Negative Negative [facility] Blood erythrocytes count (nu mber/volume)Ordered By: Harley Harding on 10-31-2023 RBC (Bld) [#/Vol] 5.12 10*6/uL 4.2-5.4 [facility] Blood hemoglobin measurement (mass/volume)Ordered By: Harley Harding on 10-31-2023 Hemoglobin (Bld) [Mass/Vol] 13.8 g/dL 12.0-15.0 [facility] Blood lymphocytes/100 leukoc ytesOrdered By: Harley Harding on 10-31-2023 Lymphocytes/100 WBC (Bld) 34.9 % 19-41 [facility] Blood monocytes/100 leukocyt esOrdered By: Harley Harding on 10-31-2023 Monocytes/100 WBC (Bld) 7.8 % 0-10 [facility] Blood platelet mean volumeOr dered By: Harley Harding on 10-31-2023 Platelet mean volume (Bld) [Entitic vol] 10.9 fL 6.2-12.0 [facility] Culture, urineOrdered By: Marisol Harding on 10-31-2023 Bacteria identified Cx Nom (U) Presumptive E. coli [facility] Bacteria identified Cx Nom (U) Presumptive E. coli [facility] Determination of erythrocyte mean corpuscular volume (MCV)Ordered By: Harley Harding on 10-31-2023 MCV (RBC) [Entitic vol] 85.9 fL 81-99 [facility] Erythrocyte sedimentation ra teOrdered By: Harley Harding on 10-31-2023 ESR (Bld) [Velocity] 3 mm/h 0-30 [facility] Hematocrit Auto (Bld) [Volum e fraction]Ordered By: Harley Harding on 10-31-2023 Hematocrit (Bld) [Volume fraction] 44.0 % 37-47 [facility] Iron measurement (mass/mass) Ordered By: Harley Harding on 10-31-2023 Iron (Unsp spec) [Mass/Mass] 106 ug/dL 50-170 [facility] Ketones Test strip Ql (U)Ord ered By: Harley Harding on 10-31-2023 Ketones Ql (U) Negative Negative [facility] Laboratory - Chemistry and C hemistry - challengeOrdered By: Harley Harding on 10-31-2023 ALP [Catalytic activity/Vol] 86 U/L 45-117 [facility] ALT [Catalytic activity/Vol] 21 U/L 13-56 [facility] CO2 [Moles/Vol] 28.0 mmol/L 21.0-32.0 [facility] Globulin (S) [Mass/Vol] 3.2 g/dL 2.2-4.2 [facility] Lipase [Catalytic activity/Vol] 45 U/L 13-75 [facility] Comment on above: Please note:LIPASE r evised reference range effective 23. New Lipase methodology. Expected to produce lower values than the previous assay method. NEW Reference Range: 13 - 75 U/L Urea nitrogen/Creatinine [Mass ratio] 35.3 mg/mg 10-20 [facility] Laboratory - Drug toxicology Ordered By: Harley Harding on 10-31-2023 Amphetamines Ql (U) Negative <1000 ng/mL [facility] Benzodiazepines Ql (U) Negative < 200 ng/mL [facility] Cannabinoids Screen Ql (U) Negative < 50 ng/mL [facility] Cocaine Ql (U) Negative < 300 ng/mL [facility] Opiates Ql (U) Negative < 300 ng/mL [facility] Laboratory - Hematology and Cell countsOrdered By: Harley Harding on 10-31-2023 Erythrocyte distribution width (RBC) [Entitic vol] 42.0 fL 35.1-43.9 [facility] Erythrocyte distribution width (RBC) [Ratio] 13.2 % 11.6-14.6 [facility] Immature granulocytes/100 WBC (Bld) 0.400 % 0.0-0.9 [facility] Comment on above: IG% - Immature Granu locytes (promyelocytes, myelocytes and metamyelocytes) > 1% indicates that a LEFT SHIFT is Present. MCH (RBC) [Entitic mass] 27.0 pg 27.0-32.0 [facility] Nucleated RBC/100 WBC (Bld) [Ratio] 0 % 0-5 [facility] MCHC Auto (RBC) [Mass/Vol]Or dered By: Harley Harding on 10-31-2023 MCHC (RBC) [Mass/Vol] 31.4 g/dL 32-36 [facility] Mucus LM Ql (Urine sed)Order ed By: Harley Harding on 10-31-2023 Mucus Ql (Urine sed) 0 SEEN /hpf [facility] Nitrite Test strip Ql (U)Ord ered By: Harley Harding on 10-31-2023 Nitrite Ql (U) Negative Negative [facility] No Panel InformationOrdered By: Harley Harding on 10-31-2023 Estimated GFR (MDRD) Amer 66 mL/min >60 [facility] Comment on above: GFR Calc Estimated GFR (MDRD) Non-Af Amer 55 mL/min >60 [facility] Comment on above: Non- GFR Calc MDMA (Ecstasy) Screen Negative < 500 ng/mL [facility] Thyroid Stimulating Hormone (TSH) 0.33 uIU/mL 0.358-3.74 [facility] Urine Barbiturates Screen Negative < 200 ng/mL [facility] Urine Drug Screen Comment [facility] Comment on above: CONFIRMATORY TESTING FOR ALL POSITIVE URINE DRUG SCREENRESULTS WILL ONLY BE SENT OUT UPON PHYSICIAN ORDER. VISTA Urine Drug Screen methods provide only preliminaryanalytical test results. A more specific alternate chemicalmethod must be used in order to obtain a confirmedanalytical result. Gas chromatography/mass spectrometery(GC/MS) is the preferred confirmatory method. Clinicalconsideration and professional judgement should be appliedto any drug of abuse test result, particularly whenpreliminary positive results are used. URINE TCA TESTING MUST BE ORDERED SEPARATELY. USE TESTMNEMONIC: [facility] Urine Methadone Screen Negative < 300 ng/mL [facility] Platelets bldOrdered By: Lowell Harding on 10-31-2023 Platelets (Bld) [#/Vol] 323 10*3/uL 150-450 [facility] Protein Test strip Ql (U)Ord ered By: Harley Harding on 10-31-2023 Protein Ql (U) 30 mg/dl Negative [facility] Serum or plasma C reactive p rotein measurement (mass/volume)Ordered By: Harley Harding on 10-31-2023 CRP [Mass/Vol] mg/L 0.0-3.0 [facility] Comment on above: C-Reactive Protein ( CRP) provides useful information for thediagnosis, therapy and monitoring of inflammatory processesand associated diseases. For the evaluation of Relative Riskfor Cardiovascular Disease, a High Sensitivity CRP (HSCRP)should be ordered. Serum or plasma albumin fina urement (mass/volume)Ordered By: Harley Harding on 10-31-2023 Albumin [Mass/Vol] 3.9 g/dL 3.2-5.0 [facility] Serum or plasma albumin/glob ulin mass ratioOrdered By: Harley Harding on 10-31-2023 Albumin/Globulin [Mass ratio] 1.2 {ratio} 0.9-2.4 [facility] Serum or plasma calcium fina urement (mass/volume)Ordered By: Harley Harding on 10-31-2023 Calcium [Mass/Vol] 10.5 mg/dL 8.5-10.1 [facility] Serum or plasma creatinine m easurement (mass/volume)Ordered By: Harley Harding on 10-31-2023 Creatinine [Mass/Vol] 1.02 mg/dL 0.55-1.02 [facility] Comment on above: The validity of the calculated GFR & GFRAA in patients over 70 years has not been determined. Clinical correlation is essential. Serum or plasma urea nitroge n measurement (mass/volume)Ordered By: Harley Harding on 10-31-2023 Urea nitrogen [Mass/Vol] 36 mg/dL 7-18 [facility] Squamous epithelial cells de tection in urine sediment by light microscopyOrdered By: Harley Harding on 10-31-2023 Epithelial cells.squamous LM Ql (Urine sed) 5-10 SEEN /hpf 5-10 [facility] Thin prep Papanicolaou smear with manual screeningOrdered By: Harley Harding on 10-31-2023 Thin prep Papanicolaou smear with manual screening 19 U/L 15-37 [facility] Thin prep Papanicolaou smear with manual screening 4 5-15 [facility] Urine blood detectionOrdered By: Harley Harding on 10-31-2023 RBC Ql (U) 50 /ul Negative [facility] RBC Ql (U) 0 SEEN /hpf 0-5 [facility] Urine clarityOrdered By: Chr janelleradha Harding on 10-31-2023 Clarity (U) Sl. Cloudy Clear [facility] Urine color determinationOrd ered By: Harley Harding on 10-31-2023 Color (U) Yellow Yellow [facility] Urine glucose detectionOrder ed By: Harley Harding on 10-31-2023 Glucose Ql (U) Normal mg/dl Normal [facility] Urine leukocyte esterase det ection by dipstickOrdered By: Harley Harding on 10-31-2023 Leukocyte esterase Test strip Ql (U) 500 /ul Negative [facility] Urine pHOrdered By: David Harding on 10-31-2023 pH (U) 5.0 [pH] 5.0 - 8.0 [facility] Urine phencyclidine (PCP) de tectionOrdered By: Harley Harding on 10-31-2023 Phencyclidine Ql (U) Negative < 25 ng/mL [facility] Urine sediment bacteria coun t by microscopy (number/high power field)Ordered By: Harley Harding on 10-31-2023 Bacteria LM.HPF (Urine sed) [#/Area] 2 /[HPF] None Seen [facility] Urine specific gravity measu rementOrdered By: Harley Harding on 10-31-2023 Specific gravity (U) [Rel density] 1.020 1.002-1.030 [facility] Urobilinogen Auto test strip Ql (U)Ordered By: Harley Harding on 10-31-2023 Urobilinogen Ql (U) Normal mg/dl Normal [facility] Absolute lymphocyte countOrd ered By: Kristi Salazar on 10-24-2023 Lymphocytes Auto (Unsp spec) [#/Vol] 1.80 10*3/uL 0.83-4.51 [facility] Basophil percentageOrdered B y: Kristi Salazar on 10-24-2023 Basophils/100 WBC (Bld) 0.8 % 0-1 [facility] Chloride [Moles/Vol] 107 mmol[facility]L 98-[facility] Eosin[facility]/100 WBC (Bld) 4.0 % 0-5 [facility] Glucose [Mass/Vol] 95 mg/dL 74-106 [facility] Neutrophils (Bld) [#/Vol] 2.2 10*3/uL 2.0-7.7 [facility] Neutrophils/100 WBC (Bld) 47.0 % 47-70 [facility] Potassium [Moles/Vol] 3.7 mmol/L 3.5-5.1 [facility] Sodium [Moles/Vol] 141 mmol/L 136-145 [facility] WBC (Bld) [#/Vol] 4.8 10*3/uL 4.4-11.0 [facility] Blood erythrocytes count (nu mber/volume)Ordered By: Kristi Salazar on 10-24-2023 RBC (Bld) [#/Vol] 4.55 10*6/uL 4.2-5.4 [facility] Blood hemoglobin measurement (mass/volume)Ordered By: Kristi Salazar on 10-24-2023 Hemoglobin (Bld) [Mass/Vol] 12.3 g/dL 12.0-15.0 [facility] Blood lymphocytes/100 leukoc ytesOrdered By: Kristi Salazar on 10-24-2023 Lymphocytes/100 WBC (Bld) 37.7 % 19-41 [facility] Blood monocytes/100 leukocyt esOrdered By: Kristi Salazar on 10-24-2023 Monocytes/100 WBC (Bld) 10.3 % 0-10 [facility] Blood platelet mean volumeOr dered By: Kristi Salazar on 10-24-2023 Platelet mean volume (Bld) [Entitic vol] 10.5 fL 6.2-12.0 [facility] Determination of erythrocyte mean corpuscular volume (MCV)Ordered By: Kristi Salazar on 10-24-2023 MCV (RBC) [Entitic vol] 84.8 fL 81-99 [facility] Hematocrit Auto (Bld) [Volum e fraction]Ordered By: Kristi Salazar on 10-24-2023 Hematocrit (Bld) [Volume fraction] 38.6 % 37-47 [facility] Laboratory - Chemistry and C hemistry - challengeOrdered By: Kristi Salazar on 10-24-2023 CO2 [Moles/Vol] 27.0 mmol/L 21.0-32.0 [facility] Urea nitrogen/Creatinine [Mass ratio] 31.2 mg/mg 10-20 [facility] Laboratory - Hematology and Cell countsOrdered By: Kristi Salazar on 10-24-2023 Erythrocyte distribution width (RBC) [Entitic vol] 42.9 fL 35.1-43.9 [facility] Erythrocyte distribution width (RBC) [Ratio] 13.7 % 11.6-14.6 [facility] Immature granulocytes/100 WBC (Bld) 0.200 % 0.0-0.9 [facility] Comment on above: IG% - Immature Granu locytes (promyelocytes, myelocytes and metamyelocytes) > 1% indicates that a LEFT SHIFT is Present. MCH (RBC) [Entitic mass] 27.0 pg 27.0-32.0 [facility] Nucleated RBC/100 WBC (Bld) [Ratio] 0 % 0-5 [facility] MCHC Auto (RBC) [Mass/Vol]Or dered By: Kristi Salazar on 10-24-2023 MCHC (RBC) [Mass/Vol] 31.9 g/dL 32-36 [facility] No Panel InformationOrdered By: Kristi Salazar on 10-24-2023 Estimated Creatinine Clearance Calc 38.54 ml/min [facility] Estimated GFR (MDRD) Amer 91 mL/min >60 [facility] Comment on above: GFR Calc Estimated GFR (MDRD) Non-Af Amer 75 mL/min >60 [facility] Comment on above: Non- GFR Calc Platelets bldOrdered By: Brea Salazar on 10-24-2023 Platelets (Bld) [#/Vol] 281 10*3/uL 150-450 [facility] Serum or plasma calcium fina urement (mass/volume)Ordered By: Kristi Salazar on 10-24-2023 Calcium [Mass/Vol] 9.5 mg/dL 8.5-10.1 [facility] Serum or plasma creatinine m easurement (mass/volume)Ordered By: Kristi Salazar on 10-24-2023 Creatinine [Mass/Vol] 0.77 mg/dL 0.55-1.02 [facility] Comment on above: The validity of the calculated GFR & GFRAA in patients over 70 years has not been determined. Clinical correlation is essential. Serum or plasma urea nitroge n measurement (mass/volume)Ordered By: Kristi Salazar on 10-24-2023 Urea nitrogen [Mass/Vol] 24 mg/dL 7-18 [facility] Thin prep Papanicolaou smear with manual screeningOrdered By: Kristi Salazar on 10-24-2023 Thin prep Papanicolaou smear with manual screening 7 5-15 [facility] Basophil percentageOrdered B y: Amanuel Sidhu on 10-23-2023 Cholesterol [Mass/Vol] 134 mg/dL <200 [facility] Comment on above: <200 mg/dL Desirable 200-240 mg/dL Borderline >240 mg/dL High Risk Triglyceride [Mass/Vol] 77 mg/dL <199 [facility] Comment on above: The drugs N-Acetylcy steine and Metamizole may falsely depress this assay.Serum Triglycerides Reference Interval Normal <150 mg/dL Borderline high 150 - 199 mg/dL High 200 - 499 mg/dL Very High > or = 500 mg/dL No Panel InformationOrdered By: Amanuel Sidhu on 10-23-2023 Thyroid Stimulating Hormone (TSH) 0.72 uIU/mL 0.358-3.74 [facility] Serum or plasma cholesterol in HDL measurement (mass/volume)Ordered By: Amanuel Sidhu on 10-23-2023 Cholesterol in HDL [Mass/Vol] 60 mg/dL >40 [facility] Comment on above: The drugs N-Acetylcy steine and Metamizole may falsely depress this assay. Reference Range HDL <40 mg/dL Low HDL Cholesterol HDL >or= 60 mg/dL High HDL Cholesterol Serum or plasma cholesterol in VLDL measurement (mass/volume)Ordered By: Amanuel Sidhu on 10-23-2023 Cholesterol in VLDL [Mass/Vol] 15 mg/dL 5-40 [facility] Serum or plasma low density lipoprotein (LDL) cholesterol measurement (mass/volume)Ordered By: Amanuel Sidhu on 10-23-2023 Cholesterol in LDL [Mass/Vol] 59 mg/dL 0-130 [facility] Absolute lymphocyte countOrd ered By: Adi Holley on 10-22-2023 Lymphocytes Auto (Unsp spec) [#/Vol] 2.52 10*3/uL 0.83-4.51 [facility] Basophil percentageOrdered B y: Amanuel Nahum on 10-22-2023 Basophil percentage 3.4 mg/dL 2.5-4.9 [facility] Bilirubin [Mass/Vol] 0.70 mg/dL 0.20-1.00 [facility] Comment on above: For patients on eltr ombopag therapy, use of Dimension [place] TBIL is not recommended. Protein [Mass/Vol] 7.0 g/dL 6.4-8.2 [facility] Basophil percentageOrdered B y: Adi Holley on 10-22-2023 Basophils/100 WBC (Bld) 0.9 % 0-1 [facility] Chloride [Moles/Vol] 110 mmol/L 98-107 [facility] Eosinophils/100 WBC (Bld) 3.4 % 0-5 [facility] Glucose [Mass/Vol] 128 mg/dL 74-106 [facility] Comment on above: Fasting Glucose resu lt greater than or equal to 126 mg/dL suggests DIABETES MELLITUS per A.D.A. criteria. Neutrophils (Bld) [#/Vol] 3.2 10*3/uL 2.0-7.7 [facility] Neutrophils/100 WBC (Bld) 49.2 % 47-70 [facility] Potassium [Moles/Vol] 3.5 mmol/L 3.5-5.1 [facility] Sodium [Moles/Vol] 143 mmol/L 136-145 [facility] WBC (Bld) [#/Vol] 6.5 10*3/uL 4.4-11.0 [facility] Blood erythrocytes count (nu mber/volume)Ordered By: Adi Holley on 10-22-2023 RBC (Bld) [#/Vol] 4.84 10*6/uL 4.2-5.4 [facility] Blood hemoglobin measurement (mass/volume)Ordered By: Adi Holley on 10-22-2023 Hemoglobin (Bld) [Mass/Vol] 13.1 g/dL 12.0-15.0 [facility] Blood lymphocytes/100 leukoc ytesOrdered By: Adi Holley on 10-22-2023 Lymphocytes/100 WBC (Bld) 38.8 % 19-41 [facility] Blood monocytes/100 leukocyt esOrdered By: Adi Holley on 10-22-2023 Monocytes/100 WBC (Bld) 7.4 % 0-10 [facility] Blood platelet mean volumeOr dered By: Adi Holley on 10-22-2023 Platelet mean volume (Bld) [Entitic vol] 10.3 fL 6.2-12.0 [facility] Determination of erythrocyte mean corpuscular volume (MCV)Ordered By: Adi Holley on 10-22-2023 MCV (RBC) [Entitic vol] 86.0 fL 81-99 [facility] Direct bilirubinOrdered By: Amanuel Sidhu on 10-22-2023 Bilirubin.direct [Mass/Vol] 0.21 mg/dL 0.00-0.30 [facility] Hematocrit Auto (Bld) [Volum e fraction]Ordered By: Adi Holley on 10-22-2023 Hematocrit (Bld) [Volume fraction] 41.6 % 37-47 [facility] Laboratory - Chemistry and C hemistry - challengeOrdered By: Amanuel Sidhu on 10-22-2023 ALP [Catalytic activity/Vol] 86 U/L 45-117 [facility] ALT [Catalytic activity/Vol] 26 U/L 13-56 [facility] Globulin (S) [Mass/Vol] 3.2 g/dL 2.2-4.2 [facility] Magnesium [Mass/Vol] 1.7 mg/dL 1.6-2.6 [facility] Laboratory - Chemistry and C hemistry - challengeOrdered By: Adi Holley on 10-22-2023 CO2 [Moles/Vol] 27.0 mmol/L 21.0-32.0 [facility] Natriuretic peptide B (Bld) [Mass/Vol] 536.5 pg/mL 0-100 [facility] Urea nitrogen/Creatinine [Mass ratio] 31.0 mg/mg 10-20 [facility] Laboratory - Hematology and Cell countsOrdered By: Adi Holley on 10-22-2023 Erythrocyte distribution width (RBC) [Entitic vol] 42.2 fL 35.1-43.9 [facility] Erythrocyte distribution width (RBC) [Ratio] 13.6 % 11.6-14.6 [facility] Immature granulocytes/100 WBC (Bld) 0.300 % 0.0-0.9 [facility] Comment on above: IG% - Immature Granu locytes (promyelocytes, myelocytes and metamyelocytes) > 1% indicates that a LEFT SHIFT is Present. MCH (RBC) [Entitic mass] 27.1 pg 27.0-32.0 [facility] Nucleated RBC/100 WBC (Bld) [Ratio] 0 % 0-5 [facility] MCHC Auto (RBC) [Mass/Vol]Or dered By: Adi Holley on 10-22-2023 MCHC (RBC) [Mass/Vol] 31.5 g/dL 32-36 [facility] No Panel InformationOrdered By: Adi Holley on 10-22-2023 Estimated Creatinine Clearance Calc 38.54 ml/min [facility] Estimated GFR (MDRD) Amer 91 mL/min >60 [facility] Comment on above: GFR Calc Estimated GFR (MDRD) Non-Af Amer 75 mL/min >60 [facility] Comment on above: Non- GFR Calc No Panel InformationOrdered By: Amanuel Sidhu on 10-22-2023 Troponin I High Sensitivity 28 pg/mL 3.0-54.0 [facility] Comment on above: Please Note: New Tamara t Units and Gender Specific Reference Ranges. For more information see Policy Stat Procedure [place] High Sensitivity Troponin (TNIH) and attachments. Platelets bldOrdered By: Laurie Holley on 10-22-2023 Platelets (Bld) [#/Vol] 278 10*3/uL 150-450 [facility] Serum or plasma albumin fina urement (mass/volume)Ordered By: Amanuel Sidhu on 10-22-2023 Albumin [Mass/Vol] 3.8 g/dL 3.2-5.0 [facility] Serum or plasma calcium fina urement (mass/volume)Ordered By: Adi Holley on 10-22-2023 Calcium [Mass/Vol] 9.3 mg/dL 8.5-10.1 [facility] Serum or plasma creatinine m easurement (mass/volume)Ordered By: Adi Holley on 10-22-2023 Creatinine [Mass/Vol] 0.77 mg/dL 0.55-1.02 [facility] Comment on above: The validity of the calculated GFR & GFRAA in patients over 70 years has not been determined. Clinical correlation is essential. Serum or plasma urea nitroge n measurement (mass/volume)Ordered By: Adi Holley on 10-22-2023 Urea nitrogen [Mass/Vol] 24 mg/dL 7-18 [facility] Thin prep Papanicolaou smear with manual screeningOrdered By: Amanuel Sidhu on 10-22-2023 Thin prep Papanicolaou smear with manual screening 31 U/L 15-37 [facility] Thin prep Papanicolaou smear with manual screeningOrdered By: Adi Holley on 10-22-2023 Thin prep Papanicolaou smear with manual screening 6 5-15 [facility] Absolute lymphocyte countOrd ered By: Harley Harding on 09-13-2023 Lymphocytes Auto (Unsp spec) [#/Vol] 1.48 10*3/uL 0.83-4.51 [facility] Basophil percentageOrdered B y: Harley Harding on 09-13-2023 Basophils/100 WBC (Bld) 0.4 % 0-1 [facility] Bilirubin [Mass/Vol] 0.50 mg/dL 0.20-1.00 [facility] Comment on above: For patients on eltr ombopag therapy, use of Dimension [place] TBIL is not recommended. Chloride [Moles/Vol] 111 mmol/L 98-107 [facility] Eosinophils/100 WBC (Bld) 2.3 % 0-5 [facility] Glucose [Mass/Vol] 93 mg/dL 74-106 [facility] Neutrophils (Bld) [#/Vol] 2.8 10*3/uL 2.0-7.7 [facility] Neutrophils/100 WBC (Bld) 58.8 % 47-70 [facility] Potassium [Moles/Vol] 3.6 mmol/L 3.5-5.1 [facility] Protein [Mass/Vol] 6.3 g/dL 6.4-8.2 [facility] Sodium [Moles/Vol] 141 mmol/L 136-145 [facility] WBC (Bld) [#/Vol] 4.8 10*3/uL 4.4-11.0 [facility] Blood erythrocytes count (nu mber/volume)Ordered By: Harley Harding on 09-13-2023 RBC (Bld) [#/Vol] 4.40 10*6/uL 4.2-5.4 [facility] Blood hemoglobin measurement (mass/volume)Ordered By: Harley Harding on 09-13-2023 Hemoglobin (Bld) [Mass/Vol] 12.1 g/dL 12.0-15.0 [facility] Blood lymphocytes/100 leukoc ytesOrdered By: Harley Harding on 09-13-2023 Lymphocytes/100 WBC (Bld) 31.2 % 19-41 [facility] Blood monocytes/100 leukocyt esOrdered By: Harley Harding on 09-13-2023 Monocytes/100 WBC (Bld) 6.9 % 0-10 [facility] Blood platelet mean volumeOr dered By: Harley Harding on 09-13-2023 Platelet mean volume (Bld) [Entitic vol] 10.9 fL 6.2-12.0 [facility] Determination of erythrocyte mean corpuscular volume (MCV)Ordered By: Harley Harding on 09-13-2023 MCV (RBC) [Entitic vol] 88.4 fL 81-99 [facility] Erythrocyte sedimentation ra teOrdered By: Harley Harding on 09-13-2023 ESR (Bld) [Velocity] 3 mm/h 0-30 [facility] Hematocrit Auto (Bld) [Volum e fraction]Ordered By: Harley Harding on 09-13-2023 Hematocrit (Bld) [Volume fraction] 38.9 % 37-47 [facility] Laboratory - Chemistry and C hemistry - challengeOrdered By: Harley Harding on 09-13-2023 ALP [Catalytic activity/Vol] 74 U/L 45-117 [facility] ALT [Catalytic activity/Vol] 17 U/L 13-56 [facility] CO2 [Moles/Vol] 25.0 mmol/L 21.0-32.0 [facility] Free T4 [Mass/Vol] 1.20 ng/dL 0.76-1.46 [facility] Globulin (S) [Mass/Vol] 3.0 g/dL 2.2-4.2 [facility] Magnesium [Mass/Vol] 1.8 mg/dL 1.6-2.6 [facility] Urea nitrogen/Creatinine [Mass ratio] 29.2 mg/mg 10-20 [facility] Laboratory - Hematology and Cell countsOrdered By: Harley Harding on 09-13-2023 Erythrocyte distribution width (RBC) [Entitic vol] 44.1 fL 35.1-43.9 [facility] Erythrocyte distribution width (RBC) [Ratio] 13.4 % 11.6-14.6 [facility] Immature granulocytes/100 WBC (Bld) 0.400 % 0.0-0.9 [facility] Comment on above: IG% - Immature Granu locytes (promyelocytes, myelocytes and metamyelocytes) > 1% indicates that a LEFT SHIFT is Present. MCH (RBC) [Entitic mass] 27.5 pg 27.0-32.0 [facility] Nucleated RBC/100 WBC (Bld) [Ratio] 0 % 0-5 [facility] MCHC Auto (RBC) [Mass/Vol]Or dered By: Harley Harding on 09-13-2023 MCHC (RBC) [Mass/Vol] 31.1 g/dL 32-36 [facility] No Panel InformationOrdered By: Harley Harding on 09-13-2023 Estimated GFR (MDRD) Amer 89 mL/min >60 [facility] Comment on above: GFR Calc Estimated GFR (MDRD) Non-Af Amer 73 mL/min >60 [facility] Comment on above: Non- GFR Calc Free Triiodothyronine (T3) pg/dL 2.8 pg/mL 2.18-3.98 [facility] Thyroid Stimulating Hormone (TSH) 0.44 uIU/mL 0.358-3.74 [facility] Platelets bldOrdered By: Lowell nolasco Mehdi on 09-13-2023 Platelets (Bld) [#/Vol] 292 10*3/uL 150-450 [facility] Serum or plasma C reactive p rotein measurement (mass/volume)Ordered By: Halrey Harding on 09-13-2023 CRP [Mass/Vol] mg/L 0.0-3.0 [facility] Comment on above: C-Reactive Protein ( CRP) provides useful information for thediagnosis, therapy and monitoring of inflammatory processesand associated diseases. For the evaluation of Relative Riskfor Cardiovascular Disease, a High Sensitivity CRP (HSCRP)should be ordered. Serum or plasma albumin fina urement (mass/volume)Ordered By: Harley Harding on 09-13-2023 Albumin [Mass/Vol] 3.3 g/dL 3.2-5.0 [facility] Serum or plasma albumin/glob ulin mass ratioOrdered By: Harley Harding on 09-13-2023 Albumin/Globulin [Mass ratio] 1.1 {ratio} 0.9-2.4 [facility] Serum or plasma calcium fina urement (mass/volume)Ordered By: Harley Harding on 09-13-2023 Calcium [Mass/Vol] 9.3 mg/dL 8.5-10.1 [facility] Serum or plasma creatinine m easurement (mass/volume)Ordered By: Harley Harding on 09-13-2023 Creatinine [Mass/Vol] 0.79 mg/dL 0.55-1.02 [facility] Comment on above: The validity of the calculated GFR & GFRAA in patients over 70 years has not been determined. Clinical correlation is essential. Serum or plasma urea nitroge n measurement (mass/volume)Ordered By: Harley Harding on 09-13-2023 Urea nitrogen [Mass/Vol] 23 mg/dL 7-18 [facility] Thin prep Papanicolaou smear with manual screeningOrdered By: Harley Harding on 09-13-2023 Thin prep Papanicolaou smear with manual screening 13 U/L 15-37 [facility] Thin prep Papanicolaou smear with manual screening 5 5-15 [facility] Absolute lymphocyte countOrd ered By: Harley Harding on 06-13-2023 Lymphocytes Auto (Unsp spec) [#/Vol] 1.35 10*3/uL 0.83-4.51 [facility] Basophil percentageOrdered B y: Harley Harding on 06-13-2023 Basophils/100 WBC (Bld) 0.4 % 0-1 [facility] Bilirubin [Mass/Vol] 0.60 mg/dL 0.20-1.00 [facility] Comment on above: For patients on eltr ombopag therapy, use of Dimension [place] TBIL is not recommended. Chloride [Moles/Vol] 111 mmol/L 98-107 [facility] Eosinophils/100 WBC (Bld) 1.3 % 0-5 [facility] Glucose [Mass/Vol] 89 mg/dL 74-106 [facility] Neutrophils (Bld) [#/Vol] 2.7 10*3/uL 2.0-7.7 [facility] Neutrophils/100 WBC (Bld) 60.3 % 47-70 [facility] Potassium [Moles/Vol] 3.5 mmol/L 3.5-5.1 [facility] Protein [Mass/Vol] 6.5 g/dL 6.4-8.2 [facility] Sodium [Moles/Vol] 143 mmol/L 136-145 [facility] WBC (Bld) [#/Vol] 4.5 10*3/uL 4.4-11.0 [facility] Blood erythrocytes count (nu mber/volume)Ordered By: Harley Harding on 06-13-2023 RBC (Bld) [#/Vol] 4.57 10*6/uL 4.2-5.4 [facility] Blood hemoglobin measurement (mass/volume)Ordered By: Harley Harding on 06-13-2023 Hemoglobin (Bld) [Mass/Vol] 12.9 g/dL 12.0-15.0 [facility] Blood lymphocytes/100 leukoc ytesOrdered By: Harley Harding on 06-13-2023 Lymphocytes/100 WBC (Bld) 29.7 % 19-41 [facility] Blood monocytes/100 leukocyt esOrdered By: Harley Harding on 06-13-2023 Monocytes/100 WBC (Bld) 7.9 % 0-10 [facility] Blood platelet mean volumeOr dered By: Harley Harding on 06-13-2023 Platelet mean volume (Bld) [Entitic vol] 10.2 fL 6.2-12.0 [facility] Determination of erythrocyte mean corpuscular volume (MCV)Ordered By: Harley Harding on 06-13-2023 MCV (RBC) [Entitic vol] 87.5 fL 81-99 [facility] Direct bilirubinOrdered By: Harley Harding on 06-13-2023 Bilirubin.direct [Mass/Vol] 0.20 mg/dL 0.00-0.30 [facility] [facility] Erythrocyte sedimentation ra teOrdered By: Harley Harding on 06-13-2023 ESR (Bld) [Velocity] mm/h 0-30 [facility] Hematocrit Auto (Bld) [Volum e fraction]Ordered By: Harley Harding on 06-13-2023 Hematocrit (Bld) [Volume fraction] 40.0 % 37-47 [facility] Laboratory - Chemistry and C hemistry - challengeOrdered By: Harley Harding on 06-13-2023 ALP [Catalytic activity/Vol] 83 U/L 45-117 [facility] ALT [Catalytic activity/Vol] 25 U/L 13-56 [facility] CO2 [Moles/Vol] 26.0 mmol/L 21.0-32.0 [facility] Free T4 [Mass/Vol] 1.26 ng/dL 0.76-1.46 [facility] Globulin (S) [Mass/Vol] 2.9 g/dL 2.2-4.2 [facility] Natriuretic peptide B (Bld) [Mass/Vol] 126.0 pg/mL 0-100 [facility] Urea nitrogen/Creatinine [Mass ratio] 22.5 mg/mg 10-20 [facility] Laboratory - Hematology and Cell countsOrdered By: Harley Harding on 06-13-2023 Erythrocyte distribution width (RBC) [Entitic vol] 43.2 fL 35.1-43.9 [facility] Erythrocyte distribution width (RBC) [Ratio] 13.5 % 11.6-14.6 [facility] Immature granulocytes/100 WBC (Bld) 0.400 % 0.0-0.9 [facility] Comment on above: IG% - Immature Granu locytes (promyelocytes, myelocytes and metamyelocytes) > 1% indicates that a LEFT SHIFT is Present. MCH (RBC) [Entitic mass] 28.2 pg 27.0-32.0 [facility] Nucleated RBC/100 WBC (Bld) [Ratio] 0 % 0-5 [facility] MCHC Auto (RBC) [Mass/Vol]Or dered By: Harley Harding on 06-13-2023 MCHC (RBC) [Mass/Vol] 32.3 g/dL 32-36 [facility] No Panel InformationOrdered By: Harley Harding on 06-13-2023 Estimated GFR (MDRD) Amer 77 mL/min >60 [facility] Comment on above: GFR Calc Estimated GFR (MDRD) Non-Af Amer 64 mL/min >60 [facility] Comment on above: Non- GFR Calc Parathyroid Hormone (Intact) 85.3 pg/mL 18.4-80.1 [facility] Thyroid Stimulating Hormone (TSH) 0.30 uIU/mL 0.358-3.74 [facility] Platelets bldOrdered By: Lowell Harding on 06-13-2023 Platelets (Bld) [#/Vol] 259 10*3/uL 150-450 [facility] Serum or plasma C reactive p rotein measurement (mass/volume)Ordered By: Harley Harding on 06-13-2023 CRP [Mass/Vol] mg/L 0.0-3.0 [facility] Comment on above: C-Reactive Protein ( CRP) provides useful information for thediagnosis, therapy and monitoring of inflammatory processesand associated diseases. For the evaluation of Relative Riskfor Cardiovascular Disease, a High Sensitivity CRP (HSCRP)should be ordered. Serum or plasma albumin fina urement (mass/volume)Ordered By: Harley Harding on 06-13-2023 Albumin [Mass/Vol] 3.6 g/dL 3.2-5.0 [facility] Serum or plasma calcium fina urement (mass/volume)Ordered By: Harley Harding on 06-13-2023 Calcium [Mass/Vol] 9.8 mg/dL 8.5-10.1 [facility] Serum or plasma creatinine m easurement (mass/volume)Ordered By: Harley Harding on 06-13-2023 Creatinine [Mass/Vol] 0.89 mg/dL 0.55-1.02 [facility] Comment on above: The validity of the calculated GFR & GFRAA in patients over 70 years has not been determined. Clinical correlation is essential. Serum or plasma urea nitroge n measurement (mass/volume)Ordered By: Harley Harding on 06-13-2023 Urea nitrogen [Mass/Vol] 20 mg/dL 7-18 [facility] Thin prep Papanicolaou smear with manual screeningOrdered By: Harley Harding on 06-13-2023 Thin prep Papanicolaou smear with manual screening 25 U/L 15-37 [facility] Thin prep Papanicolaou smear with manual screening 6 5-15 [facility] Thin prep Papanicolaou smear with manual screening 69.9 mg/L NO RANGE EST. [facility] Basophil percentageOrdered B y: Dr. Harding on 04-17-2023 Amylase [Catalytic activity/Vol] 68 U/L 25-115 [facility] Basophil percentage 2.7 mg/dL 2.5-4.9 [facility] Chloride [Moles/Vol] 111 mmol/L 98-107 [facility] Glucose [Mass/Vol] 101 mg/dL 74-106 [facility] Comment on above: Fasting Glucose resu lt from 100 to 125 mg/dL suggests IMPAIRED HOMEOSTASIS per A.D.A. criteria. Potassium [Moles/Vol] 4.2 mmol/L 3.5-5.1 [facility] Sodium [Moles/Vol] 141 mmol/L 136-145 [facility] Laboratory - Chemistry and C hemistry - challengeOrdered By: Dr. Harding on 04-17-2023 CO2 [Moles/Vol] 24.0 mmol/L 21.0-32.0 [facility] Lipase [Catalytic activity/Vol] 34 U/L 13-75 [facility] Comment on above: Please note:LIPASE r evised reference range effective 23. New Lipase methodology. Expected to produce lower values than the previous assay method. NEW Reference Range: 13 - 75 U/L Magnesium [Mass/Vol] 2.1 mg/dL 1.6-2.6 [facility] Urea nitrogen/Creatinine [Mass ratio] 33.9 mg/mg 10-20 [facility] No Panel InformationOrdered By: Dr. Harding on 04-17-2023 Ionized Calcium 5.5 mg/dL 4.5-5.6 [facility] Comment on above: Performed at: [facility] [employer] [address] [id number] Director: Elfego Art PhD, Phone: [phone] Estimated GFR (MDRD) Amer 88 mL/min >60 [facility] Comment on above: GFR Calc Estimated GFR (MDRD) Non-Af Amer 73 mL/min >60 [facility] Comment on above: Non- GFR Calc Vitamin D 25-Hydroxy 51.7 ng/mL [facility] Comment on above: Vitamin D 25(OH) Sta tus Range Deficiency <20 ng/mL (50nmol/L) Insufficiency 20 - 30 ng/mL (50 - 75 nmol/L) Sufficiency 30 - 100 ng/mL (75 - 250 nmol/L) Toxicity >100 ng/mL (>250 nmol/L) Serum or plasma calcium fina urement (mass/volume)Ordered By: Dr. Harding on 04-17-2023 Calcium [Mass/Vol] 9.5 mg/dL 8.5-10.1 [facility] Serum or plasma creatinine m easurement (mass/volume)Ordered By: Dr. Harding on 04-17-2023 Creatinine [Mass/Vol] 0.80 mg/dL 0.55-1.02 [facility] Comment on above: The validity of the calculated GFR & GFRAA in patients over 70 years has not been determined. Clinical correlation is essential. Serum or plasma urea nitroge n measurement (mass/volume)Ordered By: Dr. Harding on 04-17-2023 Urea nitrogen [Mass/Vol] 27 mg/dL 7-18 [facility] Thin prep Papanicolaou smear with manual screeningOrdered By: Dr. Harding on 04-17-2023 Thin prep Papanicolaou smear with manual screening 6 5-15 [facility] No Panel InformationOrdered By: Dr. Harding on 04-10-2023 Parathyroid Hormone (Intact) 131.5 pg/mL 18.4-80.1 [facility] Absolute lymphocyte countOrd ered By: Dr. Harding on 04-05-2023 Lymphocytes Auto (Unsp spec) [#/Vol] 1.24 10*3/uL 0.83-4.51 [facility] Basophil percentageOrdered B y: Dr. Harding on 04-05-2023 Amylase [Catalytic activity/Vol] 65 U/L 25-115 [facility] Basophils/100 WBC (Bld) 0.4 % 0-1 [facility] Bilirubin [Mass/Vol] 0.60 mg/dL 0.20-1.00 [facility] Comment on above: For patients on eltr ombopag therapy, use of Dimension [place] TBIL is not recommended. Chloride [Moles/Vol] 108 mmol/L 98-107 [facility] Eosinophils/100 WBC (Bld) 1.9 % 0-5 [facility] Glucose [Mass/Vol] 89 mg/dL 74-106 [facility] Neutrophils (Bld) [#/Vol] 3.9 10*3/uL 2.0-7.7 [facility] Neutrophils/100 WBC (Bld) 68.1 % 47-70 [facility] Potassium [Moles/Vol] 4.1 mmol/L 3.5-5.1 [facility] Protein [Mass/Vol] 6.6 g/dL 6.4-8.2 [facility] Sodium [Moles/Vol] 140 mmol/L 136-145 [facility] WBC (Bld) [#/Vol] 5.7 10*3/uL 4.4-11.0 [facility] Blood erythrocytes count (nu mber/volume)Ordered By: Dr. Harding on 04-05-2023 RBC (Bld) [#/Vol] 4.61 10*6/uL 4.2-5.4 [facility] Blood hemoglobin measurement (mass/volume)Ordered By: Dr. Harding on 04-05-2023 Hemoglobin (Bld) [Mass/Vol] 13.2 g/dL 12.0-15.0 [facility] Blood lymphocytes/100 leukoc ytesOrdered By: Dr. Harding on 04-05-2023 Lymphocytes/100 WBC (Bld) 21.7 % 19-41 [facility] Blood monocytes/100 leukocyt esOrdered By: Dr. Harding on 04-05-2023 Monocytes/100 WBC (Bld) 7.7 % 0-10 [facility] Blood platelet mean volumeOr dered By: Dr. Harding on 04-05-2023 Platelet mean volume (Bld) [Entitic vol] 10.7 fL 6.2-12.0 [facility] Determination of erythrocyte mean corpuscular volume (MCV)Ordered By: Dr. Harding on 04-05-2023 MCV (RBC) [Entitic vol] 87.2 fL 81-99 [facility] Erythrocyte sedimentation ra teOrdered By: Dr. Harding on 04-05-2023 ESR (Bld) [Velocity] 2 mm/h 0-30 [facility] Hematocrit Auto (Bld) [Volum e fraction]Ordered By: Dr. Harding on 04-05-2023 Hematocrit (Bld) [Volume fraction] 40.2 % 37-47 [facility] Laboratory - Chemistry and C hemistry - challengeOrdered By: Dr. Harding on 04-05-2023 ALP [Catalytic activity/Vol] 79 U/L 45-117 [facility] ALT [Catalytic activity/Vol] 20 U/L 13-56 [facility] CO2 [Moles/Vol] 26.0 mmol/L 21.0-32.0 [facility] Globulin (S) [Mass/Vol] 2.9 g/dL 2.2-4.2 [facility] Lipase [Catalytic activity/Vol] 40 U/L 13-75 [facility] Comment on above: Please note:LIPASE r evised reference range effective 23. New Lipase methodology. Expected to produce lower values than the previous assay method. NEW Reference Range: 13 - 75 U/L Urea nitrogen/Creatinine [Mass ratio] 30.2 mg/mg 10-20 [facility] Laboratory - Hematology and Cell countsOrdered By: Dr. Harding on 04-05-2023 Erythrocyte distribution width (RBC) [Entitic vol] 42.4 fL 35.1-43.9 [facility] Erythrocyte distribution width (RBC) [Ratio] 13.3 % 11.6-14.6 [facility] Immature granulocytes/100 WBC (Bld) 0.200 % 0.0-0.9 [facility] Comment on above: IG% - Immature Granu locytes (promyelocytes, myelocytes and metamyelocytes) > 1% indicates that a LEFT SHIFT is Present. MCH (RBC) [Entitic mass] 28.6 pg 27.0-32.0 [facility] Nucleated RBC/100 WBC (Bld) [Ratio] 0 % 0-5 [facility] MCHC Auto (RBC) [Mass/Vol]Or dered By: Dr. Harding on 04-05-2023 MCHC (RBC) [Mass/Vol] 32.8 g/dL 32-36 [facility] No Panel InformationOrdered By: Dr. Harding on 04-05-2023 Estimated GFR (MDRD) Amer 92 mL/min >60 [facility] Comment on above: GFR Calc Estimated GFR (MDRD) Non-Af Amer 76 mL/min >60 [facility] Comment on above: Non- GFR Calc Thyroid Stimulating Hormone (TSH) 0.67 uIU/mL 0.358-3.74 [facility] Platelets bldOrdered By: Dr. Harding on 04-05-2023 Platelets (Bld) [#/Vol] 252 10*3/uL 150-450 [facility] Serum Helicobacter pylori Ig G antibody assay (units/volume)Ordered By: Dr. Harding on 04-05-2023 H. pylori IgG Qn (S) 0.11 0.00-0.79 [facility] Comment on above: Result Units: Index Value Negative <0.80 Equivocal 0.80 - 0.89 Positive >0.89Performed at: [facility] [id number] Director: Elfego Art PhD, Phone: [phone] Serum or plasma albumin fina urement (mass/volume)Ordered By: Dr. Harding on 04-05-2023 Albumin [Mass/Vol] 3.7 g/dL 3.2-5.0 [facility] Serum or plasma albumin/glob ulin mass ratioOrdered By: Dr. Harding on 04-05-2023 Albumin/Globulin [Mass ratio] 1.3 {ratio} 0.9-2.4 [facility] Serum or plasma calcium fina urement (mass/volume)Ordered By: Dr. Harding on 04-05-2023 Calcium [Mass/Vol] 10.0 mg/dL 8.5-10.1 [facility] Serum or plasma creatinine m easurement (mass/volume)Ordered By: Dr. Harding on 04-05-2023 Creatinine [Mass/Vol] 0.76 mg/dL 0.55-1.02 [facility] Comment on above: The validity of the calculated GFR & GFRAA in patients over 70 years has not been determined. Clinical correlation is essential. Serum or plasma urea nitroge n measurement (mass/volume)Ordered By: Dr. Harding on 04-05-2023 Urea nitrogen [Mass/Vol] 23 mg/dL 7-18 [facility] Thin prep Papanicolaou smear with manual screeningOrdered By: Dr. Harding on 04-05-2023 Thin prep Papanicolaou smear with manual screening 16 U/L 15-37 [facility] Thin prep Papanicolaou smear with manual screening 6 5-15 [facility] Absolute lymphocyte countOrd ered By: Dr. Harding on 12-21-2022 Lymphocytes Auto (Unsp spec) [#/Vol] 1.66 10*3/uL 0.83-4.51 [facility] Basophil percentageOrdered B y: Dr. Harding on 12-21-2022 Basophils/100 WBC (Bld) 0.5 % 0-1 [facility] Bilirubin [Mass/Vol] 0.30 mg/dL 0.20-1.00 [facility] Comment on above: For patients on eltr ombopag therapy, use of Dimension [place] TBIL is not recommended. Chloride [Moles/Vol] 106 mmol/L 98-107 [facility] Eosinophils/100 WBC (Bld) 2.9 % 0-5 [facility] Glucose [Mass/Vol] 76 mg/dL 74-106 [facility] Neutrophils (Bld) [#/Vol] 3.8 10*3/uL 2.0-7.7 [facility] Neutrophils/100 WBC (Bld) 60.5 % 47-70 [facility] Potassium [Moles/Vol] 4.2 mmol/L 3.5-5.1 [facility] Protein [Mass/Vol] 6.8 g/dL 6.4-8.2 [facility] Sodium [Moles/Vol] 140 mmol/L 136-145 [facility] WBC (Bld) [#/Vol] 6.3 10*3/uL 4.4-11.0 [facility] Blood erythrocytes count (nu mber/volume)Ordered By: Dr. Harding on 12-21-2022 RBC (Bld) [#/Vol] 4.68 10*6/uL 4.2-5.4 [facility] Blood hemoglobin measurement (mass/volume)Ordered By: Dr. Harding on 12-21-2022 Hemoglobin (Bld) [Mass/Vol] 13.1 g/dL 12.0-15.0 [facility] Blood lymphocytes/100 leukoc ytesOrdered By: Dr. Harding on 12-21-2022 Lymphocytes/100 WBC (Bld) 26.4 % 19-41 [facility] Blood monocytes/100 leukocyt esOrdered By: Dr. Harding on 12-21-2022 Monocytes/100 WBC (Bld) 9.4 % 0-10 [facility] Blood platelet mean volumeOr dered By: Dr. Harding on 12-21-2022 Platelet mean volume (Bld) [Entitic vol] 10.7 fL 6.2-12.0 [facility] Determination of erythrocyte mean corpuscular volume (MCV)Ordered By: Dr. Harding on 12-21-2022 MCV (RBC) [Entitic vol] 88.5 fL 81-99 [facility] Erythrocyte sedimentation ra teOrdered By: Dr. Harding on 12-21-2022 ESR (Bld) [Velocity] 6 mm/h 0-30 [facility] Hematocrit Auto (Bld) [Volum e fraction]Ordered By: Dr. Harding on 12-21-2022 Hematocrit (Bld) [Volume fraction] 41.4 % 37-47 [facility] Laboratory - Chemistry and C hemistry - challengeOrdered By: Dr. Harding on 12-21-2022 ALP [Catalytic activity/Vol] 83 U/L 45-117 [facility] ALT [Catalytic activity/Vol] 23 U/L 13-56 [facility] CO2 [Moles/Vol] 27.0 mmol/L 21.0-32.0 [facility] Globulin (S) [Mass/Vol] 3.2 g/dL 2.2-4.2 [facility] Urea nitrogen/Creatinine [Mass ratio] 33.2 mg/mg 10-20 [facility] Laboratory - Hematology and Cell countsOrdered By: Dr. Harding on 12-21-2022 Erythrocyte distribution width (RBC) [Entitic vol] 44.9 fL 35.1-43.9 [facility] Erythrocyte distribution width (RBC) [Ratio] 13.8 % 11.6-14.6 [facility] Immature granulocytes/100 WBC (Bld) 0.300 % 0.0-0.9 [facility] Comment on above: IG% - Immature Granu locytes (promyelocytes, myelocytes and metamyelocytes) > 1% indicates that a LEFT SHIFT is Present. MCH (RBC) [Entitic mass] 28.0 pg 27.0-32.0 [facility] Nucleated RBC/100 WBC (Bld) [Ratio] 0 % 0-5 [facility] MCHC Auto (RBC) [Mass/Vol]Or dered By: Dr. Harding on 12-21-2022 MCHC (RBC) [Mass/Vol] 31.6 g/dL 32-36 [facility] No Panel InformationOrdered By: Dr. Harding on 12-21-2022 Estimated GFR (MDRD) Amer 86 mL/min >60 [facility] Comment on above: GFR Calc Estimated GFR (MDRD) Non-Af Amer 71 mL/min >60 [facility] Comment on above: Non- GFR Calc Vitamin D 25-Hydroxy 79.4 ng/mL [facility] Comment on above: Vitamin D 25(OH) Sta tus Range Deficiency <20 ng/mL (50nmol/L) Insufficiency 20 - 30 ng/mL (50 - 75 nmol/L) Sufficiency 30 - 100 ng/mL (75 - 250 nmol/L) Toxicity >100 ng/mL (>250 nmol/L) Platelets bldOrdered By: Dr. Harding on 12-21-2022 Platelets (Bld) [#/Vol] 266 10*3/uL 150-450 [facility] Serum or plasma albumin fina urement (mass/volume)Ordered By: Dr. Harding on 12-21-2022 Albumin [Mass/Vol] 3.6 g/dL 3.2-5.0 [facility] Serum or plasma albumin/glob ulin mass ratioOrdered By: Dr. Harding on 12-21-2022 Albumin/Globulin [Mass ratio] 1.1 {ratio} 0.9-2.4 [facility] Serum or plasma calcium fina urement (mass/volume)Ordered By: Dr. Harding on 12-21-2022 Calcium [Mass/Vol] 10.1 mg/dL 8.5-10.1 [facility] Serum or plasma creatinine m easurement (mass/volume)Ordered By: Dr. Harding on 12-21-2022 Creatinine [Mass/Vol] 0.81 mg/dL 0.55-1.02 [facility] Comment on above: The validity of the calculated GFR & GFRAA in patients over 70 years has not been determined. Clinical correlation is essential. Serum or plasma urea nitroge n measurement (mass/volume)Ordered By: Dr. Harding on 12-21-2022 Urea nitrogen [Mass/Vol] 27 mg/dL 7-18 [facility] Thin prep Papanicolaou smear with manual screeningOrdered By: Dr. Harding on 12-21-2022 Thin prep Papanicolaou smear with manual screening 17 U/L 15-37 [facility] Thin prep Papanicolaou smear with manual screening 7 5-15 [facility] Absolute lymphocyte countOrd ered By: Dr. Knight on 09-23-2022 Lymphocytes Auto (Unsp spec) [#/Vol] 1.28 10*3/uL 0.83-4.51 [facility] Basophil percentageOrdered B y: Dr. Knight on 09-23-2022 Basophil percentage 0 SEEN /hpf 0-5 [facility] Basophils/100 WBC (Bld) 0.3 % 0-1 [facility] Chloride [Moles/Vol] 107 mmol/L 98-107 [facility] Eosinophils/100 WBC (Bld) 1.0 % 0-5 [facility] Glucose [Mass/Vol] 115 mg/dL 74-106 [facility] Comment on above: Fasting Glucose resu lt from 100 to 125 mg/dL suggests IMPAIRED HOMEOSTASIS per A.D.A. criteria. Neutrophils (Bld) [#/Vol] 5.2 10*3/uL 2.0-7.7 [facility] Neutrophils/100 WBC (Bld) 73.0 % 47-70 [facility] Potassium [Moles/Vol] 4.3 mmol/L 3.5-5.1 [facility] Sodium [Moles/Vol] 139 mmol/L 136-145 [facility] WBC (Bld) [#/Vol] 7.1 10*3/uL 4.4-11.0 [facility] Bilirubin Test strip Ql (U)O rdered By: Dr. Knight on 09-23-2022 Bilirubin Ql (U) Negative Negative [facility] Blood erythrocytes count (nu mber/volume)Ordered By: Dr. Knight on 09-23-2022 RBC (Bld) [#/Vol] 4.92 10*6/uL 4.2-5.4 [facility] Blood hemoglobin measurement (mass/volume)Ordered By: Dr. Knight on 09-23-2022 Hemoglobin (Bld) [Mass/Vol] 14.1 g/dL 12.0-15.0 [facility] Blood lymphocytes/100 leukoc ytesOrdered By: Dr. Knight on 09-23-2022 Lymphocytes/100 WBC (Bld) 17.9 % 19-41 [facility] Blood monocytes/100 leukocyt esOrdered By: Dr. Knight on 09-23-2022 Monocytes/100 WBC (Bld) 7.7 % 0-10 [facility] Blood platelet mean volumeOr dered By: Dr. Knight on 09-23-2022 Platelet mean volume (Bld) [Entitic vol] 10.1 fL 6.2-12.0 [facility] COVID-19 virus antigen assay Ordered By: Dr. Knight on 09-23-2022 SARS-CoV-2 (COVID-19) Ag IA.rapid Ql (Resp) [facility] Calcium oxalate crystals det ection in urine sediment by light microscopyOrdered By: Dr. Knight on 09-23-2022 Calcium oxalate crystals LM Ql (Urine sed) 3+ /hpf [facility] Determination of erythrocyte mean corpuscular volume (MCV)Ordered By: Dr. Knight on 09-23-2022 MCV (RBC) [Entitic vol] 83.1 fL 81-99 [facility] Hematocrit Auto (Bld) [Volum e fraction]Ordered By: Dr. Knight on 09-23-2022 Hematocrit (Bld) [Volume fraction] 40.9 % 37-47 [facility] Ketones Test strip Ql (U)Ord ered By: Dr. Knight on 09-23-2022 Ketones Ql (U) 5 mg/dl Negative [facility] Laboratory - Chemistry and C hemistry - challengeOrdered By: Dr. Knight on 09-23-2022 CO2 [Moles/Vol] 25.0 mmol/L 21.0-32.0 [facility] Urea nitrogen/Creatinine [Mass ratio] 22.6 mg/mg 10-20 [facility] Laboratory - Hematology and Cell countsOrdered By: Dr. Knight on 09-23-2022 Erythrocyte distribution width (RBC) [Entitic vol] 40.5 fL 35.1-43.9 [facility] Erythrocyte distribution width (RBC) [Ratio] 13.5 % 11.6-14.6 [facility] Immature granulocytes/100 WBC (Bld) 0.100 % 0.0-0.9 [facility] Comment on above: IG% - Immature Granu locytes (promyelocytes, myelocytes and metamyelocytes) > 1% indicates that a LEFT SHIFT is Present. MCH (RBC) [Entitic mass] 28.7 pg 27.0-32.0 [facility] Nucleated RBC/100 WBC (Bld) [Ratio] 0 % 0-5 [facility] MCHC Auto (RBC) [Mass/Vol]Or dered By: Dr. Knight on 09-23-2022 MCHC (RBC) [Mass/Vol] 34.5 g/dL 32-36 [facility] Mucus LM Ql (Urine sed)Order ed By: Dr. Knight on 09-23-2022 Mucus Ql (Urine sed) 0 SEEN /hpf [facility] Nitrite Test strip Ql (U)Ord ered By: Dr. Knight on 09-23-2022 Nitrite Ql (U) Negative Negative [facility] No Panel InformationOrdered By: Dr. Knight on 09-23-2022 Estimated Creatinine Clearance Calc 46.75 ml/min [facility] Estimated GFR (MDRD) Amer 83 mL/min >60 [facility] Comment on above: GFR Calc Estimated GFR (MDRD) Non-Af Amer 68 mL/min >60 [facility] Comment on above: Non- GFR Calc Platelets bldOrdered By: Dr. Knight on 09-23-2022 Platelets (Bld) [#/Vol] 276 10*3/uL 150-450 [facility] Protein Test strip Ql (U)Ord ered By: Dr. Knight on 09-23-2022 Protein Ql (U) 30 mg/dl Negative [facility] Serum or plasma calcium fina urement (mass/volume)Ordered By: Dr. Knight on 09-23-2022 Calcium [Mass/Vol] 10.2 mg/dL 8.5-10.1 [facility] Serum or plasma creatinine m easurement (mass/volume)Ordered By: Dr. Knight on 09-23-2022 Creatinine [Mass/Vol] 0.84 mg/dL 0.55-1.02 [facility] Comment on above: The validity of the calculated GFR & GFRAA in patients over 70 years has not been determined. Clinical correlation is essential. Serum or plasma urea nitroge n measurement (mass/volume)Ordered By: Dr. Knight on 09-23-2022 Urea nitrogen [Mass/Vol] 19 mg/dL 7-18 [facility] Squamous epithelial cells de tection in urine sediment by light microscopyOrdered By: Dr. Knight on 09-23-2022 Epithelial cells.squamous LM Ql (Urine sed) 0-5 SEEN /hpf 5-10 [facility] Thin prep Papanicolaou smear with manual screeningOrdered By: Dr. Knight on 09-23-2022 Thin prep Papanicolaou smear with manual screening 7 5-15 [facility] Urine blood detectionOrdered By: Dr. Knight on 09-23-2022 RBC Ql (U) 25 /ul Negative [facility] RBC Ql (U) 0-5 SEEN /hpf 0-5 [facility] Urine clarityOrdered By: Dr. Knight on 09-23-2022 Clarity (U) Clear Clear [facility] Urine color determinationOrd ered By: Dr. Knight on 09-23-2022 Color (U) Yellow Yellow [facility] Urine glucose detectionOrder ed By: Dr. Knight on 09-23-2022 Glucose Ql (U) Normal mg/dl Normal [facility] Urine leukocyte esterase det ection by dipstickOrdered By: Dr. Knight on 09-23-2022 Leukocyte esterase Test strip Ql (U) Negative Negative [facility] Urine pHOrdered By: Dr. Ector lewis on 09-23-2022 pH (U) 5.0 [pH] 5.0 - 8.0 [facility] Urine sediment bacteria coun t by microscopy (number/high power field)Ordered By: Dr. Knight on 09-23-2022 Bacteria LM.HPF (Urine sed) [#/Area] 0 /[HPF] None Seen [facility] Urine specific gravity measu rementOrdered By: Dr. Knight on 09-23-2022 Specific gravity (U) [Rel density] 1.025 1.002-1.030 [facility] Urobilinogen Auto test strip Ql (U)Ordered By: Dr. Knight on 09-23-2022 Urobilinogen Ql (U) Normal mg/dl Normal [facility] Absolute lymphocyte counton 07-08-2022 Lymphocytes Auto (Unsp spec) [#/Vol] 1.13 10*3/uL 0.83-4.51 [facility] Work Phone: Basophil percentageon 2021 Basophils/100 WBC (Bld) 0.3 % 0-1 [facility] Work Phone: Eosinophils/100 WBC (Bld) 0.3 % 0-5 [facility] Work Phone: [phone] Neutrophils (Bld) [#/Vol] 5.9 10*3/uL 2.0-7.7 [facility] Work Phone: Neutrophils/100 WBC (Bld) 79.8 % 47-70 [facility] Work Phone: WBC (Bld) [#/Vol] 7.4 10*3/uL 4.4-11.0 [facility] Work Phone: Chloride [Moles/Vol] 108 mmol/L 98-107 [facility] Work Phone: Glucose [Mass/Vol] 126 mg/dL 74-106 [facility] Work Phone: Comment on above: Fasting Glucose resu lt greater than or equal to 126 mg/dL suggests DIABETES MELLITUS per A.D.A. criteria. Potassium [Moles/Vol] 4.3 mmol/L 3.5-5.1 [facility] Work Phone: Comment on above: Moderate Hemolysis, Result may be falsely increased. Sodium [Moles/Vol] 140 mmol/L 136-145 [facility] Work Phone: Blood erythrocytes count (nu mber/volume)on 07-08-2022 RBC (Bld) [#/Vol] 4.96 10*6/uL 4.2-5.4 [facility] Work Phone: Blood hemoglobin measurement (mass/volume)on 07-08-2022 Hemoglobin (Bld) [Mass/Vol] 13.9 g/dL 12.0-15.0 [facility] Work Phone: Blood lymphocytes/100 leukoc yteson 07-08-2022 Lymphocytes/100 WBC (Bld) 15.2 % 19-41 [facility] Work Phone: Blood monocytes/100 leukocyt eson 07-08-2022 Monocytes/100 WBC (Bld) 4.3 % 0-10 [facility] Work Phone: Blood platelet mean volumeon 07-08-2022 Platelet mean volume (Bld) [Entitic vol] 10.1 fL 6.2-12.0 [facility] Work Phone: Determination of erythrocyte mean corpuscular volume (MCV)on 07-08-2022 MCV (RBC) [Entitic vol] 85.7 fL 81-99 [facility] Work Phone: Hematocrit Auto (Bld) [Volum e fraction]on 07-08-2022 Hematocrit (Bld) [Volume fraction] 42.5 % 37-47 [facility] Work Phone: Laboratory - Chemistry and C hemistry - challengeon 07-08-2022 CO2 [Moles/Vol] 26.0 mmol/L 21.0-32.0 [facility] Work Phone: Urea nitrogen/Creatinine [Mass ratio] 21.5 mg/mg 10-20 [facility] Work Phone: Laboratory - Hematology and Cell countson 07-08-2022 Erythrocyte distribution width (RBC) [Entitic vol] 43.2 fL 35.1-43.9 [facility] Work Phone: Erythrocyte distribution width (RBC) [Ratio] 13.9 % 11.6-14.6 [facility] Work Phone: Immature granulocytes/100 WBC (Bld) 0.100 % 0.0-0.9 [facility] Work Phone: Comment on above: IG% - Immature Granu locytes (promyelocytes, myelocytes and metamyelocytes) > 1% indicates that a LEFT SHIFT is Present. MCH (RBC) [Entitic mass] 28.0 pg 27.0-32.0 [facility] Work Phone: Nucleated RBC/100 WBC (Bld) [Ratio] 0 % 0-5 [facility] Work Phone: MCHC Auto (RBC) [Mass/Vol]on 07-08-2022 MCHC (RBC) [Mass/Vol] 32.7 g/dL 32-36 [facility] Work [facility]: No Panel Informationon 07-08 Estimated Creatinine Clearance Calc 43.01 ml/min [facility] Work Phone: Estimated GFR (MDRD) Amer 74 mL/min >60 [facility] Work Phone: Comment on above: GFR Calc Estimated GFR (MDRD) Non-Af Amer 61 mL/min >60 [facility] Work Phone: Comment on above: Non- GFR Calc Platelets bldon 07-08-2022 Platelets (Bld) [#/Vol] 278 10*3/uL 150-450 [facility] Work Phone: Serum or plasma calcium fina urement (mass/volume)on 07-08-2022 Calcium [Mass/Vol] 10.4 mg/dL 8.5-10.[address] [facility] Work Phone: Serum or plasma creatinine m easurement (mass/volume)on 07-08-2022 Creatinine [Mass/Vol] 0.93 mg/dL 0.55-1.02 [facility] Work Phone: Comment on above: The validity of the calculated GFR & GFRAA in patients over 70 years has not been determined. Clinical correlation is essential. Serum or plasma urea nitroge n measurement (mass/volume)on 07-08-2022 Urea nitrogen [Mass/Vol] 20 mg/dL 7-18 [facility] Work Phone: Thin prep Papanicolaou smear with manual screeningon 07-08-2022 Thin prep Papanicolaou smear with manual screening 6 5-15 [facility] Work Phone: Basophil percentageon 2021 Bilirubin [Mass/Vol] 0.60 mg/dL 0.20-1.00 [facility] Work Phone: Comment on above: For patients on eltr ombopag therapy, use of Dimension [place] TBIL is not recommended. Chloride [Moles/Vol] 108 mmol/L 98-107 [facility] Work Phone: Cholesterol [Mass/Vol] 166 mg/dL <200 [facility] Work Phone: Comment on above: <200 mg/dL Desirable 200-240 mg/dL Borderline >240 mg/dL High Risk Glucose [Mass/Vol] 90 mg/dL 74-106 [facility] Work Phone: Potassium [Moles/Vol] 4.2 mmol/L 3.5-5.1 [facility] Work Phone: Protein [Mass/Vol] 6.8 g/dL 6.4-8.2 [facility] Work Phone: Sodium [Moles/Vol] 139 mmol/L 136-145 [facility] Work Phone: Triglyceride [Mass/Vol] 71 mg/dL <199 [facility] Work Phone: Comment on above: The drugs N-Acetylcy steine and Metamizole may falsely depress this assay.Serum Triglycerides Reference Interval Normal <150 mg/dL Borderline high 150 - 199 mg/dL High 200 - 499 mg/dL Very High > or = 500 mg/dL Laboratory - Chemistry and C hemistry - challengeon 06-01-2022 ALP [Catalytic activity/Vol] 83 U/L 45-117 [facility] Work Phone: ALT [Catalytic activity/Vol] 22 U/L 13-56 [facility] Work Phone: CO2 [Moles/Vol] 24.0 mmol/L 21.0-32.0 [facility] Work Phone: Globulin (S) [Mass/Vol] 3.0 g/dL 2.2-4.2 [facility] Work Phone: Urea nitrogen/Creatinine [Mass ratio] 27.9 mg/mg 10-20 [facility] Work Phone: No Panel Informationon 06-01 Estimated GFR (MDRD) Amer 85 mL/min >60 [facility] Work Phone: Comment on above: GFR Calc Estimated GFR (MDRD) Non-Af Amer 70 mL/min >60 [facility] Work Phone: Comment on above: Non- GFR Calc Thyroid Stimulating Hormone (TSH) 0.41 uIU/mL 0.358-3.74 [facility] Work Phone: Vitamin D 25-Hydroxy 15.3 ng/mL [facility] Work Phone: Comment on above: Vitamin D 25(OH) Sta tus Range Deficiency <20 ng/mL (50nmol/L) Insufficiency 20 - 30 ng/mL (50 - 75 nmol/L) Sufficiency 30 - 100 ng/mL (75 - 250 nmol/L) Toxicity >100 ng/mL (>250 nmol/L) Serum or plasma albumin fina urement (mass/volume)on 06-01-2022 Albumin [Mass/Vol] 3.8 g/dL 3.2-5.0 [facility] Work Phone: Serum or plasma albumin/glob ulin mass ratioon 06-01-2022 Albumin/Globulin [Mass ratio] 1.3 {ratio} 0.9-2.4 [facility] Work Phone: Serum or plasma calcium fina urement (mass/volume)on 06-01-2022 Calcium [Mass/Vol] 9.7 mg/dL 8.5-10.1 [facility] Work Phone: Serum or plasma cholesterol in HDL measurement (mass/volume)on 06-01-2022 Cholesterol in HDL [Mass/Vol] 67 mg/dL >40 [facility] Work Phone: Comment on above: The drugs N-Acetylcy steine and Metamizole may falsely depress this assay. Reference Range HDL <40 mg/dL Low HDL Cholesterol HDL >or= 60 mg/dL High HDL Cholesterol Serum or plasma cholesterol in VLDL measurement (mass/volume)on 06-01-2022 Cholesterol in VLDL [Mass/Vol] 14 mg/dL 5-40 [facility] Work Phone: Serum or plasma creatinine m easurement (mass/volume)on 06-01-2022 Creatinine [Mass/Vol] 0.82 mg/dL 0.55-1.02 [facility] Work Phone: Comment on above: The validity of the calculated GFR & GFRAA in patients over 70 years has not been determined. Clinical correlation is essential. Serum or plasma low density lipoprotein (LDL) cholesterol measurement (mass/volume)on 06-01-2022 Cholesterol in LDL [Mass/Vol] 85 mg/dL 0-130 [facility] Work Phone: Serum or plasma urea nitroge n measurement (mass/volume)on 06-01-2022 Urea nitrogen [Mass/Vol] 23 mg/dL 7-18 [facility] Work Phone: Serum or plasma uric acid me asurement (mass/volume)on 06-01-2022 Urate [Mass/Vol] 5.5 mg/dL 2.6-6.0 [facility] Work Phone: Comment on above: The drugs N-Acetylcy steine and Metamizole may falsely depress this assay. Thin prep Papanicolaou smear with manual screeningon 06-01-2022 Thin prep Papanicolaou smear with manual screening 20 U/L 15-37 [facility] Work Phone: Thin prep Papanicolaou smear with manual screening 7 5-15 [facility] Work Phone: Absolute lymphocyte counton 05-07-2022 Lymphocytes Auto (Unsp spec) [#/Vol] 1.98 10*3/uL 0.83-4.51 [facility] Work Phone: Basophil percentageon 2021 Basophils/100 WBC (Bld) 0.5 % 0-1 [facility] Work Phone: Chloride [Moles/Vol] 108 mmol/L 98-107 [facility] Work [facility]: Eosinophils/100 WBC (Bld) 3.2 % 0-5 [facility] Work Phone: Glucose [Mass/Vol] 97 mg/dL 74-106 [facility] Work Phone: [phone] Neutrophils (Bld) [#/Vol] 3.7 10*3/uL 2.0-7.7 [facility] Work Phone: Neutrophils/100 WBC (Bld) 56.9 % 47-70 [facility] Work Phone: Potassium [Moles/Vol] 3.5 mmol/L 3.5-5.[address] [facility] Work Phone: Sodium [Moles/Vol] 140 mmol/L 136-145 [facility] Work Phone: WBC (Bld) [#/Vol] 6.6 10*3/uL 4.4-11.0 [facility] Work Phone: Blood erythrocytes count (nu mber/volume)on 05-07-2022 RBC (Bld) [#/Vol] 4.33 10*6/uL 4.2-5.4 [facility] Work Phone: Blood hemoglobin measurement (mass/volume)on 05-07-2022 Hemoglobin (Bld) [Mass/Vol] 12.1 g/dL 12.0-15.0 [facility] Work Phone: Blood lymphocytes/100 leukoc yteson 05-07-2022 Lymphocytes/100 WBC (Bld) 30.2 % 19-41 [facility] Work Phone: Blood monocytes/100 leukocyt eson 05-07-2022 Monocytes/100 WBC (Bld) 9.0 % 0-10 [facility] Work Phone: Blood platelet mean volumeon 05-07-2022 Platelet mean volume (Bld) [Entitic vol] 9.4 fL 6.2-12.0 [facility] Work Phone: Determination of erythrocyte mean corpuscular volume (MCV)on 05-07-2022 MCV (RBC) [Entitic vol] 85.5 fL 81-99 [facility] Work Phone: Hematocrit Auto (Bld) [Volum e fraction]on 05-07-2022 Hematocrit (Bld) [Volume fraction] 37.0 % 37-47 [facility] Work Phone: Laboratory - Chemistry and C hemistry - challengeon 05-07-2022 CO2 [Moles/Vol] 27.0 mmol/L 21.0-32.0 [facility] Work Phone: Urea nitrogen/Creatinine [Mass ratio] 21.5 mg/mg 10-20 [facility] Work Phone: Laboratory - Hematology and Cell countson 05-07-2022 Erythrocyte distribution width (RBC) [Entitic vol] 43.6 fL 35.1-43.9 [facility] Work Phone: Erythrocyte distribution width (RBC) [Ratio] 13.8 % 11.6-14.6 [facility] Work Phone: Immature granulocytes/100 WBC (Bld) 0.200 % 0.0-0.9 [facility] Work Phone: Comment on above: IG% - Immature Granu locytes (promyelocytes, myelocytes and metamyelocytes) > 1% indicates that a LEFT SHIFT is Present. MCH (RBC) [Entitic mass] 27.9 pg 27.0-32.0 [facility] Work Phone: Nucleated RBC/100 WBC (Bld) [Ratio] 0 % 0-5 [facility] Work Phone: MCHC Auto (RBC) [Mass/Vol]on 05-07-2022 MCHC (RBC) [Mass/Vol] 32.7 g/dL 32-36 [facility] Work Phone: No Panel Informationon 05-07 Estimated Creatinine Clearance Calc 47.62 ml/min [facility] Work Phone: Estimated GFR (MDRD) Amer 83 mL/min >60 [facility] Work Phone: Comment on above: GFR Calc Estimated GFR (MDRD) Non-Af Amer 69 mL/min >60 [facility] Work Phone: Comment on above: Non- GFR Calc Platelets bldon 05-07-2022 Platelets (Bld) [#/Vol] 227 10*3/uL 150-450 [facility] Work Phone: Serum or plasma calcium fina urement (mass/volume)on 05-07-2022 Calcium [Mass/Vol] 9.5 mg/dL 8.5-10.1 [facility] Work Phone: Serum or plasma creatinine m easurement (mass/volume)on 05-07-2022 Creatinine [Mass/Vol] 0.84 mg/dL 0.55-1.02 [facility] Work Phone: Comment on above: The validity of the calculated GFR & GFRAA in patients over 70 years has not been determined. Clinical correlation is essential. Serum or plasma urea nitroge n measurement (mass/volume)on 05-07-2022 Urea nitrogen [Mass/Vol] 18 mg/dL 7-18 [facility] Work Phone: Thin prep Papanicolaou smear with manual screeningon 05-07-2022 Thin prep Papanicolaou smear with manual screening 5 5-15 [facility] Work Phone: Absolute lymphocyte counton 05-05-2022 Lymphocytes Auto (Unsp spec) [#/Vol] 1.32 10*3/uL 0.83-4.51 [facility] Work Phone: Basophil percentageon 2021 Lactate [Moles/Vol] 1.0 mmol/L 0.4-2.0 [facility] Work Phone: Basophil percentage 0 SEEN /hpf 0-5 [facility] Work Phone: Basophils/100 WBC (Bld) 0.4 % 0-1 [facility] Work Phone: Bilirubin [Mass/Vol] 0.70 mg/dL 0.20-1.00 [facility] Work Phone: Comment on above: For patients on eltr ombopag therapy, use of Dimension [place] TBIL is not recommended. Chloride [Moles/Vol] 110 mmol/L 98-107 [facility] Work Phone: Eosinophils/100 WBC (Bld) 3.9 % 0-5 [facility] Work Phone: Glucose [Mass/Vol] 110 mg/dL 74-106 [facility] Work Phone: Comment on above: Fasting Glucose resu lt from 100 to 125 mg/dL suggests IMPAIRED HOMEOSTASIS per A.D.A. criteria. Neutrophils (Bld) [#/Vol] 3.0 10*3/uL 2.0-7.7 [facility] Work Phone: Neutrophils/100 WBC (Bld) 60.5 % 47-70 [facility] Work Phone: Potassium [Moles/Vol] 4.4 mmol/L 3.5-5.1 [facility] Work Phone: [phone] Protein [Mass/Vol] 6.5 g/dL 6.4-8.2 [facility] Work Phone: [phone] Sodium [Moles/Vol] 142 mmol/L 136-145 [facility] Work Phone: [phone] WBC (Bld) [#/Vol] 4.9 10*3/uL 4.4-11.0 [facility] Work Phone: Bilirubin Test strip Ql (U)o n 05-05-2022 Bilirubin Ql (U) Negative Negative [facility] Work Phone: Blood erythrocytes count (nu mber/volume)on 05-05-2022 RBC (Bld) [#/Vol] 4.80 10*6/uL 4.2-5.4 [facility] Work Phone: Blood hemoglobin measurement (mass/volume)on 05-05-2022 Hemoglobin (Bld) [Mass/Vol] 13.3 g/dL 12.0-15.0 [facility] Work Phone: Blood lymphocytes/100 leukoc yteson 05-05-2022 Lymphocytes/100 WBC (Bld) 27.0 % 19-41 [facility] Work Phone: Blood monocytes/100 leukocyt eson 05-05-2022 Monocytes/100 WBC (Bld) 7.8 % 0-10 [facility] Work Phone: Blood platelet mean volumeon 05-05-2022 Platelet mean volume (Bld) [Entitic vol] 9.7 fL 6.2-12.0 [facility] Work Phone: Determination of erythrocyte mean corpuscular volume (MCV)on 05-05-2022 MCV (RBC) [Entitic vol] 85.2 fL 81-99 [facility] Work Phone: Hematocrit Auto (Bld) [Volum e fraction]on 05-05-2022 Hematocrit (Bld) [Volume fraction] 40.9 % 37-47 [facility] Work Phone: Ketones Test strip Ql (U)on 05-05-2022 Ketones Ql (U) Negative Negative [facility] Work Phone: Laboratory - Chemistry and C hemistry - challengeon 05-05-2022 ALP [Catalytic activity/Vol] 79 U/L 45-117 [facility] Work Phone: ALT [Catalytic activity/Vol] 22 U/L 13-56 [facility] Work Phone: CO2 [Moles/Vol] 27.0 mmol/L 21.0-32.0 [facility] Work Phone: Globulin (S) [Mass/Vol] 2.8 g/dL 2.2-4.2 [facility] Work Phone: Urea nitrogen/Creatinine [Mass ratio] 31.7 mg/mg 10-20 [facility] Work Phone: Laboratory - Hematology and Cell countson 05-05-2022 Erythrocyte distribution width (RBC) [Entitic vol] 42.0 fL 35.1-43.9 [facility] Work Phone: Erythrocyte distribution width (RBC) [Ratio] 13.5 % 11.6-14.6 [facility] Work Phone: Immature granulocytes/100 WBC (Bld) 0.400 % 0.0-0.9 [facility] Work Phone: Comment on above: IG% - Immature Granu locytes (promyelocytes, myelocytes and metamyelocytes) > 1% indicates that a LEFT SHIFT is Present. MCH (RBC) [Entitic mass] 27.7 pg 27.0-32.0 [facility] Work Phone: Nucleated RBC/100 WBC (Bld) [Ratio] 0 % 0-5 [facility] Work Phone: MCHC Auto (RBC) [Mass/Vol]on 05-05-2022 MCHC (RBC) [Mass/Vol] 32.5 g/dL 32-36 [facility] Work Phone: Mucus LM Ql (Urine sed)on Mucus Ql (Urine sed) 0 SEEN /hpf [facility] Work Phone: Nitrite Test strip Ql (U)on 05-05-2022 Nitrite Ql (U) Negative Negative [facility] Work Phone: No Panel Informationon 05-05 Estimated Creatinine Clearance Calc 40.00 ml/min [facility] Work Phone: Estimated GFR (MDRD) Amer 89 mL/min >60 [facility] Work Phone: Comment on above: GFR Calc Estimated GFR (MDRD) Non-Af Amer 74 mL/min >60 [facility] Work Phone: Comment on above: Non- GFR Calc Troponin I High Sensitivity 7 pg/mL 3.0-54.0 [facility] Work Phone: Comment on above: Please Note: New Tamara t Units and Gender Specific Reference Ranges. For more information see Policy Stat Procedure [place] High Sensitivity Troponin (TNIH) and attachments. Platelets bldon 05-05-2022 Platelets (Bld) [#/Vol] 227 10*3/uL 150-450 [facility] Work Phone: Protein Test strip Ql (U)on 05-05-2022 Protein Ql (U) 30 mg/dl Negative [facility] Work Phone: Serum or plasma albumin fina urement (mass/volume)on 05-05-2022 Albumin [Mass/Vol] 3.7 g/dL 3.2-5.0 [facility] Work Phone: Serum or plasma albumin/glob ulin mass ratioon 05-05-2022 Albumin/Globulin [Mass ratio] 1.3 {ratio} 0.9-2.4 [facility] Work Phone: Serum or plasma calcium fina urement (mass/volume)on 05-05-2022 Calcium [Mass/Vol] 9.6 mg/dL 8.5-10.1 [facility] Work Phone: Serum or plasma creatinine m easurement (mass/volume)on 05-05-2022 Creatinine [Mass/Vol] 0.79 mg/dL 0.55-1.02 [facility] Work Phone: Comment on above: The validity of the calculated GFR & GFRAA in patients over 70 years has not been determined. Clinical correlation is essential. Serum or plasma urea nitroge n measurement (mass/volume)on 05-05-2022 Urea nitrogen [Mass/Vol] 25 mg/dL 7-18 [facility] Work Phone: Squamous epithelial cells de tection in urine sediment by light microscopyon 05-05-2022 Epithelial cells.squamous LM Ql (Urine sed) 0-5 SEEN /hpf 5-10 [facility] Work Phone: Thin prep Papanicolaou smear with manual screeningon 05-05-2022 Thin prep Papanicolaou smear with manual screening 17 U/L 15-37 [facility] Work Phone: Thin prep Papanicolaou smear with manual screening 5 5-15 [facility] Work Phone: Urine blood detectionon RBC Ql (U) 250 /ul Negative [facility] Work Phone: RBC Ql (U) 25-50 SEEN /hpf 0-5 [facility] Work Phone: Urine clarityon 05-05-2022 Clarity (U) Sl. Cloudy Clear [facility] Work Phone: Urine color determinationon 05-05-2022 Color (U) Yellow Yellow [facility] Work Phone: Urine glucose detectionon Glucose Ql (U) Normal mg/dl Normal [facility] Work Phone: Urine leukocyte esterase det ection by dipstickon 05-05-2022 Leukocyte esterase Test strip Ql (U) Negative Negative [facility] Work Phone: Urine pHon 05-05-2022 pH (U) 6.5 [pH] 5.0 - 8.0 [facility] Work Phone: Urine sediment bacteria coun t by microscopy (number/high power field)on 05-05-2022 Bacteria LM.HPF (Urine sed) [#/Area] 1 /[HPF] None Seen [facility] Work Phone: Urine specific gravity measu rementon 05-05-2022 Specific gravity (U) [Rel density] 1.015 1.002-1.030 [facility] Work Phone: Urobilinogen Auto test strip Ql (U)on 05-05-2022 Urobilinogen Ql (U) Normal mg/dl Normal [facility] Work Phone: Laboratory - Microbiology an d Antimicrobial susceptibilityon 04-18-2022 SARS-CoV-2 (COVID-19) RNA DIONNA+probe Ql (Unsp spec) Not detected Not Detect [facility] Work Phone: Comment on above: Normal Reference Ran ge: Not DetectedMethod:(RT-PCR) real-time reverse transcriptase PCRLuminex AMNA Instrument*The Food and Drug Administration (FDA) has issued an Emergency Use Authorization (EAU) for the AMNA SARS-CoV-2 Assay for the rapid detection of the virus that causes COVID-19. This test has been validated, but the FDAs independent review of this validation is pending.*Negative results do not preclude infection and should not be used as the sole basis for treatment or patient management. Optimum specimen types and timing for peak viral levels during infections caused by SARS-CoV-2 have not been determined. Collection of multiple specimens from the same patient may be necessary to detect the virus. The possibility of a false negative result should be considered if the patient has clinical presentation or has had recent exposure. CNOVon 06-02-2017 CNOV Office Visit (RADTWS) ALFONSOAzam Cheatham ([id number]) 1935 FDate Time Provider Department06/02/17 11:00 AM AKSHAT YU During your visit today, we recorded the following information about you: Temperature Pulse Blood pressure Weight 98.2 degrees 56/minute 146/64 95.3 kgSumerlyn Baez, RN, RN 06/02/2017 11:17 AM SignedRadiation Therapy - Nursing Note (Follow-up)PATIENT NAME: Shena HaimltonPATIENT [facility] for visit: Follow up.Subjective DataNo c/oAdditional DataDo you want to see a Vice President Of Nursing? NoNursing AssessmentFatigue: noneAppetite: goodWeight Gain/Loss: NoLast 6 Encounter Wt Readings: Date: Wt: 06/02/2017 95.3 kg (210 lb) 04/18/2016 95.5 kg (210 lb 8 oz) 04/02/2014 91.6 kg (202 lb) 05/20/2013 96.2 kg (212 lb) 07/18/2012 92.1 kg (203 lb) 05/14/2012 92.1 kg (203 lb)Bowel Function: normal bowel movementsBone Pain: noneFocused Assessmentleft buttock- denies any problemsWas approved? 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 She is doing wellwithout any specific new complaints. She denies any pain or discomfort in theabdomen or pelvis area. She denies any nausea/vomiting or diarrhea. CT scan ofthe abdomen/pelvis on 05/29/17 showed no evidence of residual or recurrentdisease.PHYSICA L EXAMINATION: On examination, Pt is in no acute distress, AANDamp;O x 3. BP 146/64 Pulse (!)56 Temp 36.8 ?C (98.2 ?F) (Oral) Wt 95.3 kg (210 lb) BMI 31.93 kg/m2 HEENT; EOMI, conjuntiva clear, sclera anicteric, neck supple, Lymph nodes; nopalpable lymphadenopathy in the inguinal region. Abdomen: soft, NT/ND. Nopalpable mass. Pelvis: no palpable mass in the left buttock area.IMPRESSION/PLAN: Clinically BRIANDA. It's been almost six years since she finishedradiation treatment. I will get surveillance CT scan in two years. I will seeher in two years for a follow-up.Electronically SignedDaesung Radha Yucc:[facility] [id number] Provider: AKSHAT YU [[id number]]Allergies As of Date: 06/02/2017 Noted Allergy ReactionLODINE (ETODOLAC) 10/03/2005 2 - RashNAPROSYN (NAPROXEN) 10/03/2005 5 - Intolerance Comments: CONSTIPATIONSENOKOT (SENNA) 10/03/2005 5 - Intolerance Comments: VIOLENT CRAMPSSYNVISC (HYLAN G-F 20) 03/01/2006 5 - Intolerance Comments: pt states synvisc just did not work for her when injected in knee, not that she is intolerant or has side effectXALATAN (LATANOPROST) 01/18/2006 Comments: possible eye allergyDate Reviewed: 06/02/2017Reviewed by: Martha (Rn) MICHELLE Baez - Fully AssessedReason for Visit: Recheck [92]Primary Visit Diagnosis:History of sarcoma [Z85.831]Prescriptions as of 06/02/2017 Sig: TIMOLOL OPHTHALMIC Use in eyes. MINOCYCLINE ORAL Take by mouth. CLOBETASOL 0.05 % TOPICAL OIN* Use sparingly one -two times * SIMVASTATIN 20 MG TABLET takes one daily. 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 NoNursing AssessmentFatigue: noneAppetite: goodWeight Gain/Loss: NoLast 6 Encounter Wt Readings: Date: Wt: 06/02/2017 95.3 kg (210 lb) 04/18/2016 95.5 kg (210 lb 8 oz) 04/02/2014 91.6 kg (202 lb) 05/20/2013 96.2 kg (212 lb) 07/18/2012 92.1 kg (203 lb) 05/14/2012 92.1 kg (203 lb)Bowel Function: normal bowel movementsBone Pain: noneFocused Assessmentleft buttock- denies any problemsWas approved? YesSIGNED by: Martha Baez RNEncounter Number: [id number] Status:Closed by AKSHAT YU MD on 06/02/[address] 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 She is doing wellwithout any specific new complaints. She denies any pain or discomfort inthe abdomen or pelvis area. She denies any nausea/vomiting or diarrhea. CTscan of the abdomen/pelvis on 05/29/17 showed no evidence of residual orrecurrent disease.PHYSICAL EXAMINATION: On examination, Pt is in no acute distress, AANDO x 3. BP 146/64 Pulse(!) 56 Temp 36.8 ?C (98.2 ?F) (Oral) Wt 95.3 kg (210 lb) BMI 31.93kg/m2 HEENT; EOMI, conjuntiva clear, sclera anicteric, neck supple, Lymphnodes; no palpable lymphadenopathy in the inguinal region. Abdomen: soft,NT/ND. No palpable mass. Pelvis: no palpable mass in the left buttockarea.IMPRESSION/P CHANELL: Clinically BRIANDA. It's been almost six years since shefinished radiation treatment. I will get surveillance CT scan in twoyears. I will see her in two years for a follow-up.Electronically SignedDaesung Radha Yucc:[facility] [id number] [facility] CT ABD/PEL W IVCONon 017 CT ABD/PEL W IVCON * * *Final Report* * *DATE OF EXAM: May 29 2017 11:47AM [facility] 0530 - CT ABD/PEL W IVCON / REASON: Personal history of malignant neoplasm of soft tissue * * * * Physician Interpretation * * * * EXAMINATION: CT ABDOMEN AND PELVIS WITH IV CONTRASTCLINICAL HISTORY: Status post left posterior pelvic liposarcoma resection. Assess for recurrenceTECHNIQUE: CT of the abdomen and pelvis was performed using standard technique, scanning from just above the dome of the diaphragm to the symphysis pubis.M: CTAP_2Contrast:IV: 145 ml of Omnipaque 300Oral: 50 ml of 50ML Omnipaque 240 W 850ML WaterCT Radiation dose: Integrated Dose-length product (DLP) for this visit = 906 mGy*cm.CT Dose Reduction Employed: Automated exposure control (AEC)COMPARISON: CT abdomen and pelvis 04/11/2016, 03/24/2015RESULT:Liver: Redemonstrated are multiple low-attenuation lesions apparent in the left hepatic lobe, unchanged in size, number and morphology. The largest of these in segment Grace is unchanged in size measuring 4.3 cm.Biliary: No bile duct dilation. Cholelithiasis.Spleen: Few low-attenuation lesions in the anterior peripheral are again noted. The largest is approximately 1.3 x 1 cm, unchanged hydroureteronephrosis since prior CT. No splenomegaly.Pancreas: No mass or duct dilation.Adrenals: No mass.Kidneys: Enhance symmetrically without hydronephrosis. Unchanged LEFT lower pole atrophy. Stable right upper and lower pole cysts with additional subcentimeter low-attenuation lesions bilaterally which are too small to characterize and likely benign.GI tract: No dilation or wall thickening. The appendix is unremarkable. There is colonic diverticulosis without evidence of acute diverticulitis.Lymph nodes: No abdominal or pelvic lymphadenopathy.Mesenter y/Peritoneum: No ascites or mass. There are surgical clips within the left lower quadrant are unchanged.Vasculature: The celiac axis and SMA are patent. The portal vein and branches, splenic vein, SMV, and hepatic veins are patent. There is moderate aortic and bilateral iliac atherosclerotic calcification.Pelvis: No mass, ascites or fluid collection. The bladder and uterus are unremarkable.Bones/Soft Tissues: There are postsurgical changes with surgical clips in the left gluteal region again seen. Unchanged appearance of small fluid attenuation collection in the al midline abdominal wall just superficial to the rectus femoris (e.g. chronic seroma).There are moderate degenerative changes of the thoracolumbar spine. There are degenerative changes of the bilateral hip and sacroiliac joints.Lower thorax: Unremarkable.IMPRESSION: STABLE OPERATIVE CHANGES. NO EVIDENCE FOR RECURRENCE OR METASTASIS IN THE ABDOMEN OR PELVIS.NOTE: No imaging follow-up is recommended for any of the following incidentally detected lesions: liver lesions less than or equal to 0.5 cm, cystic kidney lesions less than 1.0 cm, or adrenal lesions less than or equal to 1.0 cm, in this adult patient (18 years or older).ACR Whitepaper: Managing Incidental Findings on Abdominal CT. JACR 2010; 7:754Transcriptionist: KENDELL Transcribe Date/Time: May 29 2017 2:05PDictated by : VLAD MOORE MDThiobinna examination was interpreted and the report reviewed and electronically signed by: YOANA DUFFY MD on May 29 2017 2:54PM EST Normal [facility] PROGRESSon 05-29-2017 PROGRESS HNO ID: [id number]: Pattie Rios Eddyueger CtService: (none)Author Type: (none)Type: Progress NotesFiled: 05/29/2017 12:35 PMNote Text: Radiology Service Progress NotePATIENT NAME: Shena MaurerterMRN: [id number] OF SERVICE: May 29, 2017TIME: 12:34 PMPATIENT IDENTITY VERIFICATION COMPLETED USING TWO (2) METHODS: Patientconfirmed name verbally and Date of .PATIENT GENDER DATA: Female. status: : NoBreastfeeding status: NO.PATIENT RELEVANT IMPLANT DATA REVIEWED: Not ApplicableCONTRAST INDUCED NEPHROPATHY RISK FACTORS: Patient age > 60 yearsCREATININE:Creatini neDate Value Ref Range Ehggzc1008/25/2011 0.67 (L) 0.70 - 1.40 mg/dL Final05/04/2011 0.71 0.70 - 1.40 mg/dL Final05/02/2011 0.59 (L) 0.70 - 1.40 mg/dL Final eGFR-All Other RacesDate Value Ref Range Dvmewx0808/25/2011 >60 . FinalComment:eGFR (Estimated GFR) Units of measure: mL/min/1.73 meters squaredeGFR is derived from the reexpressed MDRD Study equation using thefollowing parameters: serum creatinine, age, gender and race. Thecreatinine assay has been calibrated to be traceable to IDMS.An eGFR <60 mL/min/1.73m2 for >3 months is consistent with chronickidney disease. Refer to KDOQI guidelines for clinical interpretation.--------- -eGFR- AmericanDate Value Ref Range Qoegqt9408/25/2011 >60 Final P.O.C.T. RESULTS: POCT Creatinine Results: 0.8 mg/dl and Q.C. = OK.May 29, 2017REFERENCE RANGE:Reference range (age 0-9 years) 0.30 - 1.00 mg/dLReference range (age 10-14 years) 0.30 - 1.20 mg/dLReference range (age 15-18 years) 0.40 - 1.30 mg/dLReference range (age 19-99 years ) 0.70-1.40 mg/dLCALCULATED GFR: .RADIOLOGIST NOTIFIED?: NoALLERGIES: Reviewed and unchangedCONTRAST ALLERGY: NO.PERIPHERAL IV ACCESS: Ambulatory: IV type: A peripheral IV was startedin the Right antecubital site with a Angio cath: 22 gauge., Siteassessment: Clean,Dry and Intact, Site disposition DiscontinuedRADIOLOGY DEPARTMENT: CT; Exam(s) Completed: Abdomen/PelvisSIGNED BY: Pattie Barrera CtJuly 2016 12:34 PM Normal [facility] Vital Signs Date Time Vital Sign Value Performing Clinician Tobiasi vidhya 11-07-2024 12:25-0500 Body temperature 96.8 [degF] Dr. Edis Harding MD Work Phone: [facility] 11-07-2024 12:25-0500 Diastolic blood pressure 101 mm[Hg] Dr. Edis Harding MD Work Phone: [facility] 11-07-2024 12:25-0500 Heart rate 71 /min Dr. Edis Harding MD Work Phone: [facility] 11-07-2024 12:25-0500 Respiratory rate 16 /min Dr. Edis Harding MD Work Phone: [facility] 11-07-2024 12:25-0500 SaO2% (BldA) [Mass fraction] 99 % Dr. Edis Harding MD Work Phone: [facility] 11-07-2024 12:25-0500 Systolic blood pressure 151 mm[Hg] Dr. Edis Harding MD Work Phone: [facility] 11-07-2024 09:44-0500 Body height 170.[address] Edis Harding MD Work Phone: [facility] 11-07-2024 09:44-0500 Body mass index (BMI) [Ratio] 24.4 kg/m2 Dr. Edis Harding MD Work Phone: [facility] 11-07-2024 09:44-0500 Body weight 70.[address] Edis Harding MD Work Phone: [facility] 03-29-2024 04:45-0400 Body temperature 98.6 [degF] [facility] [place] 03-29-2024 04:45-0400 Diastolic blood pressure 53 mm[Hg] [facility] 03-29-2024 04:45-0400 Heart rate 70 /min [facility] 03-29-2024 04:45-0400 Respiratory rate 14 /min [facility] [place] 03-29-2024 04:45-0400 SaO2% (BldA) [Mass fraction] 98 % [facility] 03-29-2024 04:45-0400 Systolic blood pressure 157 mm[Hg] [facility] 03-29-2024 01:30-0400 Body height 170.18 cm [facility] 03-29-2024 01:30-0400 Body mass index (BMI) [Ratio] 25.7 kg/m2 [facility] 03-29-2024 01:30-0400 Body weight 74.4 kg [facility] 03-25-2024 00:50-0400 Body temperature 96.5 [degF] [facility] [place] 03-25-2024 00:50-0400 Diastolic blood pressure 30 mm[Hg] [facility] 03-25-2024 00:50-0400 Heart rate 77 /min [facility] 03-25-2024 00:50-0400 Respiratory rate 16 /min [facility] [place] 03-25-2024 00:50-0400 SaO2% (BldA) [Mass fraction] 95 % [facility] 03-25-2024 00:50-0400 Systolic blood pressure 147 mm[Hg] [facility] 03-24-2024 21:59-0400 Body mass index (BMI) [Ratio] 25.4 kg/m2 [facility] 03-24-2024 21:59-0400 Body weight 73.6 kg [facility] 03-24-2024 21:57-0400 Body height 170.18 cm [facility] 10-24-2023 15:15-0500 Body temperature 97.6 [degF] Dr. Harley Harding Work Phone: [facility] 10-24-2023 15:15-0500 Diastolic blood pressure 64 mm[Hg] Dr. Harley Harding Work Phone: [facility] 10-24-2023 15:15-0500 Heart rate 60 /min Dr. Harley Harding Work Phone: [facility] 10-24-2023 15:15-0500 Respiratory rate 17 /min Dr. Harley Harding Work Phone: [facility] 10-24-2023 15:15-0500 SaO2% (BldA) [Mass fraction] 100 % Dr. Harley Harding Work Phone: [facility] 10-24-2023 15:15-0500 Systolic blood pressure 133 mm[Hg] Dr. Harley Harding Work Phone: [facility] 10-24-2023 06:00-0500 Body mass index (BMI) [Ratio] 30.4 kg/m2 Dr. Harley Harding Work Phone: [facility] 10-24-2023 06:00-0500 Body weight 88.[address] Harley Harding Work Phone: [facility] 10-24-2023 03:00-0500 Inhaled oxygen flow rate 2 L/min Dr. Harley Harding Work Phone: [facility] 10-22-2023 11:14-0500 Body height 170.[address] Harley Harding Work Phone: [facility] 10-22-2023 08:23-0500 Diastolic blood pressure 79 mm[Hg] Dr. Harley Harding Work Phone: [facility] 10-22-2023 08:23-0500 Heart rate 83 /min Dr. Harley Harding Work Phone: [facility] 10-22-2023 08:23-0500 Inhaled oxygen flow rate 2 L/min Dr. Harley Harding Work Phone: 8(141)144-294551 [place] [address] 10-22-2023 08:23-0500 Respiratory rate 21 /min Dr. Harley Harding Work Phone: [facility] 10-22-2023 08:23-0500 SaO2% (BldA) [Mass fraction] 100 % Dr. Harley Harding Work Phone: [facility] 10-22-2023 08:23-0500 Systolic blood pressure 163 mm[Hg] Dr. Harley Harding Work Phone: [facility] 10-22-2023 07:07-0500 Body temperature 96.9 [degF] Dr. Harley Harding Work Phone: [facility] 10-22-2023 05:54-0500 Body height 170.[address] Harley Harding Work Phone: [facility] 10-22-2023 05:54-0500 Body mass index (BMI) [Ratio] 29.2 kg/m2 Dr. Harley Harding Work Phone: [facility] 10-22-2023 05:54-0500 Body weight 84.[address] Harley Harding Work Phone: 1(610)799-114606 [address] 08-29-2023 13:23-0400 Body height 170.[address] Harley Harding Work Phone: 1(165)985-244051 [place] [address] 08-29-2023 13:23-0400 Body mass index (BMI) [Ratio] 27.7 kg/m2 Dr. Harley Harding Work Phone: 0(073)104-479351 [place] [address] 08-29-2023 13:23-0400 Body weight 80.[address] Harley Harding Work Phone: 5(058)459-474716 [place] [address] 08-29-2023 13:23-0400 Diastolic blood pressure 78 mm[Hg] Dr. Harley Harding Work Phone: 0(309)933-054816 [place] [address] 08-29-2023 13:23-0400 Heart rate 78 /min Dr. Harley Harding Work Phone: 7(467)205-912116 [place] [address] 08-29-2023 13:23-0400 Respiratory rate 17 /min Dr. Harley Harding Work Phone: 6(156)982-729516 [place] [address] 08-29-2023 13:23-0400 SaO2% (BldA) [Mass fraction] 98 % Dr. Harley Harding Work Phone: 5(897)598-717316 [place] [address] 08-29-2023 13:23-0400 Systolic blood pressure 171 mm[Hg] Dr. Harley Harding Work Phone: 1(119)003-839516 [place] [address] 09-23-2022 17:36-0400 Body height 170.[address] Harley Harding Work Phone: 3(863)679-539716 [place] [address] 09-23-2022 17:36-0400 Body mass index (BMI) [Ratio] 27.3 kg/m2 Dr. Harley Harding Work Phone: 9(804)504-325016 [place] [address] 09-23-2022 17:36-0400 Body temperature 97.6 [degF] Dr. Harley Harding Work Phone: 8(880)191-676416 [place] [address] 09-23-2022 17:36-0400 Body weight 79.[address] Harley Harding Work Phone: 0(219)808-474816 [place] [address] 09-23-2022 17:36-0400 Diastolic blood pressure 97 mm[Hg] Dr. Harley Harding Work Phone: [facility] 09-23-2022 17:36-0400 Heart rate 70 /min Dr. Harley Harding Work Phone: [facility] 09-23-2022 17:36-0400 Respiratory rate 18 /min Dr. Harley Harding Work Phone: [facility] 09-23-2022 17:36-0400 SaO2% (BldA) [Mass fraction] 100 % Dr. Harley Harding Work Phone: [facility] 09-23-2022 17:36-0400 Systolic blood pressure 152 mm[Hg] Dr. Harley Harding Work Phone: [facility] 07-08-2022 22:56-0400 Diastolic blood pressure 55 mm[Hg] Dr. Harley Harding Work Phone: [facility] Work Phone: 07-08-2022 22:56-0400 Heart rate 69 /min Dr. Harley Harding Work Phone: [facility] Work Phone: 07-08-2022 22:56-0400 Respiratory rate 14 /min Dr. Harley Harding Work Phone: [facility] Work Phone: 07-08-2022 22:56-0400 SaO2% (BldA) [Mass fraction] 97 % Dr. Harley Harding Work Phone: [facility] Work Phone: 07-08-2022 22:56-0400 Systolic blood pressure 145 mm[Hg] Dr. Harley Harding Work Phone: [facility] Work Phone: 07-08-2022 19:07-0400 Body height 170.[address] Harley Harding Work Phone: [facility] Work Phone: 07-08-2022 19:07-0400 Body mass index (BMI) [Ratio] 27.2 kg/m2 Dr. Harley Harding Work Phone: [facility] Work Phone: 07-08-2022 19:07-0400 Body temperature 96.8 [degF] Dr. Harley Harding Work Phone: [facility] Work Phone: 07-08-2022 19:07-0400 Body weight 78.[address] Harley Harding Work Phone: [facility] Work Phone: 07-07-2022 10:00-0400 Body temperature 97.6 [degF] Dr. Harley Harding Work Phone: [facility] Work Phone: 07-07-2022 10:00-0400 Diastolic blood pressure 80 mm[Hg] Dr. Harley Harding Work Phone: [facility] Work Phone: 07-07-2022 10:00-0400 Heart rate 52 /min Dr. Harley Harding Work Phone: [facility] Work Phone: 07-07-2022 10:00-0400 Respiratory rate 16 /min Dr. Harley Harding Work Phone: [facility] Work Phone: 07-07-2022 10:00-0400 SaO2% (BldA) [Mass fraction] 99 % Dr. Harley Harding Work Phone: [facility] Work Phone: 07-07-2022 10:00-0400 Systolic blood pressure 98 mm[Hg] Dr. Harley Harding Work Phone: [facility] Work Phone: 07-07-2022 08:20-0400 Body height 170.[address] Harley Harding Work Phone: [facility] Work Phone: 07-07-2022 08:20-0400 Body mass index (BMI) [Ratio] 27.2 kg/m2 Dr. Harley Harding Work Phone: [facility] Work Phone: 07-07-2022 08:20-0400 Body weight [address] Harley Harding Work Phone: [facility] Work Phone: 05-17-2022 09:40-0400 Body height 170.[address] Harley Harding Work Phone: [facility] Work Phone: 05-17-2022 09:40-0400 Body mass index (BMI) [Ratio] 28.4 kg/m2 Dr. Harley Harding Work Phone: [facility] Work Phone: 05-17-2022 09:40-0400 Body temperature 98.2 [degF] Dr. Harley Harding Work Phone: [facility] Work Phone: 05-17-2022 09:40-0400 Body weight 82.[address] Harley Haridng Work Phone: [facility] Work Phone: 05-17-2022 09:40-0400 Diastolic blood pressure 67 mm[Hg] Dr. Harley Harding Work Phone: [facility] Work Phone: 05-17-2022 09:40-0400 Heart rate 79 /min Dr. Harley Harding Work Phone: [facility] Work Phone: 05-17-2022 09:40-0400 Respiratory rate 16 /min Dr. Harley Harding Work Phone: [facility] Work Phone: 05-17-2022 09:40-0400 SaO2% (BldA) [Mass fraction] 100 % Dr. Harley Harding Work Phone: [facility] Work Phone: 05-17-2022 09:40-0400 Systolic blood pressure 145 mm[Hg] Dr. Harley Harding Work Phone: [facility] Work Phone: 05-07-2022 11:27-0400 Body height 170.[address] Harley Harding Work Phone: [facility] Work Phone: 05-07-2022 11:27-0400 Body weight [address] Harley Harding Work Phone: [facility] Work Phone: 05-07-2022 09:10-0400 Body temperature 99.2 [degF] Dr. Harley Harding Work Phone: [facility] Work Phone: 05-07-2022 09:10-0400 Diastolic blood pressure 69 mm[Hg] Dr. Harley Harding Work Phone: [facility] Work Phone: 05-07-2022 09:10-0400 Heart rate 63 /min Dr. Harley Harding Work Phone: [facility] Work Phone: 05-07-2022 09:10-0400 Respiratory rate 16 /min Dr. Harley Harding Work Phone: [facility] Work Phone: 05-07-2022 09:10-0400 SaO2% (BldA) [Mass fraction] 98 % Dr. Harley Harding Work Phone: [facility] Work Phone: 05-07-2022 09:10-0400 Systolic blood pressure 145 mm[Hg] Dr. Harley Harding Work Phone: [facility] Work Phone: 05-05-2022 22:54-0400 Diastolic blood pressure 57 mm[Hg] Dr. Harley Harding Work Phone: [facility] Work Phone: 05-05-2022 22:54-0400 Heart rate 71 /min Dr. Harley Harding Work Phone: [facility] Work Phone: 05-05-2022 22:54-0400 Respiratory rate 18 /min Dr. Harley Harding Work Phone: [facility] Work Phone: 05-05-2022 22:54-0400 Systolic blood pressure 150 mm[Hg] Dr. Harley Harding Work Phone: [facility] Work Phone: 05-05-2022 22:04-0400 Body temperature 97.3 [degF] Dr. Harley Harding Work Phone: [facility] Work Phone: 05-05-2022 22:04-0400 SaO2% (BldA) [Mass fraction] 98 % Dr. Harley Harding Work Phone: [facility] Work Phone: 05-05-2022 13:39-0400 Body height 170.[address] Harley Harding Work Phone: [facility] Work Phone: 05-05-2022 13:39-0400 Body mass index (BMI) [Ratio] 29.3 kg/m2 Dr. Harley Harding Work Phone: [facility] Work Phone: 05-05-2022 13:39-0400 Body weight [address] Harley Harding Work Phone: [facility] Work Phone: Encounters Encounter Date Encounter Type Care Provider Facility Start: 06-07-2025 ambulatory Raúl Proano Faci lity:[facility] Start: 06-06-2025 ambulatory Edis Mikepetra Lea lity:[facility] Start: 04-08-[address] Sadiq Harding MD -Physical Therapy Work Phone: Start: 04-07-2025 End: 04-07-[address] Edis Harding MD Work Phone: [facility] Work Phone: Start: 04-07-2025 End: 04-07-[address] [facility] [facility] [place] Work Phone: Start: 04-07-2025 End: 04-07-2025 ambulatory Edis Harding Facility:[facility] Start: 03-24-2025 End: 03-24-[address] Edis Harding MD -[facility] Start: 03-24-2025 End: 03-24-2025 ambulatory Edis Harding Facility:[facility] Start: 01-10-2025 End: 01-10-[address] Edis Harding MD Work Phone: [facility] Work Phone: Start: 01-10-2025 End: 01-10-[address] Edis Harding MD -Physical Therapy Work Phone: Start: 12-10-2024 End: 12-10-[address] Luis Drew MD -Nuclear Medicine, [facility] Work Phone: Start: 12-10-2024 End: 12-10-2024 ambulatory Luis Drew Facility:[facility] Start: 11-07-2024 ambulatory Edis Lea lity:[facility] Start: 11-07-2024 Non-patient / Non-visit Dr. Luis Drew MD -[facility] Start: 11-07-2024 End: 11-07-2024 Admission to same day surgery center Dr. Luis Drew MD -Endoscopy Work Phone: Start: 11-07-2024 End: 11-07-2024 ambulatory Edis Harding Facility:[facility] Start: 11-04-2024 End: 11-04-[address] [facility] Start: 11-04-2024 End: 11-04-2024 ambulatory Edis Harding Facility:[facility] Start: 10-22-2024 End: 10-22-[address] [facility] Start: 10-22-2024 End: 10-22-2024 ambulatory Edis Harding Facility:[facility] Start: 10-16-2024 End: 10-16-2024 ambulatory Edis Harding [facility] Start: 09-30-2024 End: 09-30-2024 ambulatory Edis Harding Facility:[facility] Start: 09-26-2024 End: 09-26-2024 [facility] Start: 07-11-2024 End: 07-12-2024 Emergency department patient visit Ron Magdi Facility:[facility] Start: 06-10-2024 End: 06-10-2024 [facility] Start: 03-29-2024 End: 03-29-2024 Emergency department patient visit [facility]-Emergency Department Work Phone: Start: 03-24-2024 End: 03-25-2024 Emergency department patient visit [facility]-Emergency Department Work Phone: Start: 02-26-2024 End: 02-26-2024 ambulatory [facility] Work Phone: Start: 02-26-2024 End: 02-26-2024 Patient encounter procedure [facility] Work Phone: Start: 02-19-2024 End: 02-19-2024 ambulatory [facility] Work Phone: Start: 02-19-2024 End: 02-19-2024 [facility] Start: 01-03-2024 End: 01-03-[address] Harley Harding Work Phone: [facility] Work Phone: Start: 01-03-2024 End: 01-03-[address] Harley Harding Work Phone: [facility]-Nuclear Medicine, [facility] Work Phone: Start: 12-13-2023 End: 12-13-[address] Harley Harding Work Phone: [facility] Work Phone: Start: 12-13-2023 End: 12-13-[address] Harley Harding Work Phone: [facility] Start: 11-23-2023 End: 11-23-[address] Harley Harding Work Phone: [facility] Work Phone: Start: 11-23-2023 End: 11-23-[address] Harley Harding Work Phone: [facility] Work Phone: Start: 10-31-2023 End: 10-31-[address] Harley Harding Work Phone: [facility] Work Phone: Start: 10-31-2023 End: 10-31-[address] Harley Harding Work Phone: [facility] Work Phone: Start: 10-24-2023 Non-patient / Non-visit Dr. Harley Harding Work Phone: [facility] [facility] Work Phone: Start: 10-23-2023 Non-patient / Non-visit Dr. Harley Harding Work Phone: [facility] Work Phone: Start: 10-23-2023 Non-patient / Non-visit Dr. Harley Harding Work Phone: [facility] Start: 10-22-2023 End: 10-24-2023 Evaluation and management of inpatient Dr. Harley Harding Work Phone: [facility]-Progressive Care Unit Work Phone: Start: 09-13-2023 End: 09-13-[address] Harley Harding Work Phone: [facility] Work Phone: Start: 09-13-2023 End: 09-13-[address] Harley Harding Work Phone: [facility] Start: 08-29-2023 End: 08-29-[address] Harley Harding Work Phone: [facility] Work Phone: Start: 08-29-2023 End: 08-29-[address] Harley Harding Work Phone: [facility]-Laboratory, Specimen Work Phone: Start: 08-08-2023 End: 08-08-2023 ambulatory [facility] Work Phone: Start: 08-08-2023 End: 08-08-2023 Patient encounter procedure [facility] Work Phone: Start: 06-13-2023 End: 06-13-2023 Patient encounter procedure [facility] Work Phone: Start: 04-17-2023 End: 04-17-2023 ambulatory [facility] Work Phone: Start: 04-17-2023 End: 04-17-2023 Patient encounter procedure [facility] Start: 04-10-2023 End: 04-10-2023 Patient encounter procedure [facility] Start: 04-05-2023 End: 04-05-2023 ambulatory [facility] Work Phone: Start: 04-05-2023 End: 04-05-2023 Patient encounter procedure [facility] Start: 12-21-2022 End: 12-21-2022 ambulatory [facility] Work Phone: Start: 12-21-2022 End: 12-21-2022 [facility] Start: 12-15-2022 End: 12-15-2022 ambulatory [facility] Work Phone: Start: 12-15-2022 End: 12-15-2022 Patient encounter procedure [facility] Start: 09-23-2022 End: 09-23-2022 Emergency department patient visit Dr. Harley Harding Work Phone: [facility]-Emergency Department Start: 2022 End: [address] Harley Harding Work Phone: [facility] Work Phone: Start: 2022 End: [address] Harley Harding Work Phone: [facility]-Physical Therapy Start: 07-08-2022 End: 07-08-2022 Emergency department patient visit Dr. Harley Harding Work Phone: [facility]-Emergency Department Start: 07-07-2022 Non-patient / Non-visit Dr. Harley Harding Work Phone: [facility] Start: 07-07-2022 End: 07-07-2022 Admission to same day surgery center Dr. Harley Harding Work Phone: [facility]-Endoscopy Start: 07-04-2022 End: 07-04-[address] Harley Harding Work Phone: [facility]-Radiology, [place] Start: 06-01-2022 End: 06-01-[address] Harley Harding Work Phone: [facility]-Laboratory, [place] Start: 05-17-2022 End: 05-17-[address] Harley Harding Work Phone: [facility] Start: 05-07-2022 Non-patient / Non-visit Dr. Harley Harding Work Phone: [facility] Start: 05-06-2022 Non-patient / Non-visit Dr. Harley Harding Work Phone: [facility] Start: 05-06-2022 Non-patient / Non-visit Dr. Harley Harding Work Phone: [facility] Start: 05-05-2022 Non-patient / Non-visit Dr. Harley Harding Work Phone: [facility] Start: 05-05-2022 End: 05-07-2022 Evaluation and management of inpatient Dr. Harley Harding Work Phone: [facility]-Intensive Care Unit Start: 04-19-2022 End: 04-19-[address] [facility] Start: 06-02-2017 End: 06-05-2017 Ambulatory [facility]ES[facility] Start: 05-29-2017 End: 06-02-2017 Ambulatory [facility] Procedures Date Procedure Procedure Detail Performing Clinician Start: 04-07-2025 Plain X-ray abdomen Dr. Edis Harding MD Work Phone: Start: 03-24-[address] Edis Harding MD Work Phone: Start: 03-24-2025 Serum inorganic phosphate measurement Dr. Edis Harding MD Work Phone: Start: 03-24-2025 Vitamin D, 25-hydrox y measurement Dr. Edis Harding MD Work Phone: Comment on above: Vitamin D StatusDefi ciency: <20 ng/mL (50nmol/L)Insufficiency: 20-30 ng/mL (50-75 nmol/L)Sufficiency: 30-100 ng/mL (75-250 nmol/L)Toxicity: >100 ng/mL (>250 nmol/L) Start: 12-10-2024 Radionuclide study o f abdomen Dr. Edis Harding MD Work Phone: Start: 03-29-2024 CT of abdomen and pelvis without contrast Start: 03-24-2024 CT of abdomen and pelvis without contrast Start: 03-24-2024 Urine culture Start: 02-26-2024 Diagnostic radiograp hy of abdomen, decubitus and erect Start: 02-26-2024 Urine culture Start: 01-03-2024 Radioisotope scan of parathyroid Dr. Harley Harding Work Phone: Start: 11-23-2023 MRI of brain without contrast Dr. Harley Harding Work Phone: Start: 10-31-[address] Sadiq Harding Work Phone: Start: 10-22-2023 Plain chest X-ray Dr. Azam Harding Work Phone: Start: 08-08-2023 US scan of thyroid Start: 04-05-2023 Diagnostic radiograp hy of abdomen Start: 12-15-2022 MRI of lumbar spine Start: 09-23-2022 Plain chest X-ray Dr. Azam Harding Work Phone: Start: 07-07-[address] Bull Harding Work Phone: Start: 07-04-2022 Complete x-ray serie s of lumbar spine with bending views Dr. Harley Harding Work Phone: Start: 05-06-[address] Harley Harding Work Phone: Start: 05-05-2022 Plain X-ray abdomen Dr. Harley Harding Work Phone: Start: 05-05-2022 Computed tomography angiography of abdominal and/or pelvic blood vessel Dr. Harley Harding Work Phone: History of tonsillectomy History of tonsillectomy Dr. Harley Harding Work Phone: Viral antigen assay Dr. Marlena Harding Work Phone: Viral antigen assay Plan of Treatment Date Care Activity Detail Author Start: 11-07-2024 Egd transoral biopsy single/multiple EGD BIOPSY SINGLE/MULTIPLE [facility] Start: 11-07-2024 Patient discharge [facility] Start: 03-29-2024 [facility] Start: 03-25-2024 [facility] Start: 03-24-2024 [facility] Start: 03-24-2024 Bacteria identified in Urine by Culture [facility] Start: 10-31-2023 Blood chemistry [facility] Start: 10-30-2023 Blood chemistry [facility] Start: 10-29-2023 Blood chemistry [facility] Start: 10-28-2023 Blood chemistry [facility] Start: 10-27-2023 Blood chemistry [facility] Start: 10-26-2023 Blood chemistry [facility] Start: 10-25-2023 Blood chemistry [facility] Start: 10-24-2023 Patient discharge [facility] Start: 10-22-2023 Oxygen therapy [facility] Start: 10-22-2023 Following clinical pathway protocol [facility] Start: 10-22-2023 Ambulation without limitation [facility] Start: 11-26-2023 Application of elastic bandage [facility] Start: 10-22-2023 Assessment of risk of venous thromboembolism [facility] Start: 10-22-2023 Elevation of affected extremity [facility] Start: 10-22-2023 Fluid restriction [facility] Start: 10-22-2023 Insertion of catheter into peripheral vein [facility] Start: 10-22-2023 Measuring intake and output [facility] Start: 10-22-2023 Notification of physician [facility] Start: 10-22-2023 Patient education [facility] Start: 10-22-2023 Providing care according to standard [facility] Start: 10-22-2023 Referral to occupational therapist [facility] Start: 10-22-2023 Referral to service [facility] Start: 10-22-2023 Admission procedure [facility] Start: 10-22-2023 Hospital admission, emergency, from emergency room, medical nature [facility] Start: 10-22-2023 End: 10-22-2023 [facility] Start: 09-23-2022 [facility] Start: 07-07-2022 Colonoscopy w/biopsy single/multiple COLONOSCOPY AND BIOPSY [facility] Work Phone: Start: 07-07-2022 Colsc flexible w/control bleeding any method COLONOSCOPY W/CONTROL BLEED [facility] Work Phone: Start: 07-07-2022 Egd transoral biopsy single/multiple EGD BIOPSY SINGLE/MULTIPLE [facility] Work Phone: Start: 07-07-2022 Patient discharge [facility] Work Phone: Start: 05-07-2022 Patient discharge [facility] Work Phone: Start: 05-07-2022 Patient referral to dietitian [facility] Work Phone: Start: 05-06-2022 Care planning and problem solving actions [facility] Work Phone: Start: 05-06-2022 Application of intermittent pneumatic compression device [facility] Work Phone: Start: 05-05-2022 Following clinical pathway protocol [facility] Work Phone: Start: 05-05-2022 Assessment of risk of venous thromboembolism [facility] Work Phone: Start: 05-05-2022 Catheterization of vein [facility] Work Phone: Start: 05-05-2022 Continuous pulse oximetry [facility] Work Phone: Start: 05-05-2022 Insertion of catheter into peripheral vein [facility] Work Phone: Start: 05-05-2022 Insertion of nasogastric tube [facility] Work Phone: Start: 05-05-2022 Measuring intake and output [facility] Work Phone: Start: 05-05-2022 Oxygen therapy [facility] Work Phone: Start: 05-05-2022 Providing care according to standard [facility] Work Phone: Start: 05-05-2022 Referral to general surgeon [facility] Work Phone: Start: 05-05-2022 Referral to occupational therapist [facility] Work Phone: Start: 05-05-2022 Referral to service [facility] Work Phone: Start: 05-05-2022 Vital signs measurements [facility] Work Phone: Start: 05-05-2022 [facility] Work Phone: Start: 05-05-2022 Plain X-ray abdomen Abdomen Single View (Portable) [facility] Work Phone: Start: 05-05-2022 Admission procedure [facility] Work Phone: Start: 05-05-2022 End: 05-06-2022 [facility] Work Phone: Anion gap measurement [facility] Anion gap measurement [facility] Anion gap measurement [facility] Bilirubin measuremen t, urine [facility] BUN/Creatinine ratio [facility] BUN/Creatinine ratio [facility] BUN/Creatinine ratio [facility] Calcium [Mass/volume ] in Serum or Plasma [facility] Calcium [Mass/volume ] in Serum or Plasma [facility] Calcium [Mass/volume ] in Serum or Plasma [facility] Carbon dioxide, tota l [Moles/volume] in Serum or Plasma [facility] Carbon dioxide, tota l [Moles/volume] in Serum or Plasma [facility] Carbon dioxide, tota l [Moles/volume] in Serum or Plasma [facility] Chloride [Moles/volu me] in Serum or Plasma [facility] Chloride [Moles/volu me] in Serum or Plasma [facility] Chloride [Moles/volu me] in Serum or Plasma [facility] Creatinine [Moles/vo lume] in Serum or Plasma [facility] Creatinine [Moles/vo lume] in Serum or Plasma [facility] Creatinine [Moles/vo lume] in Serum or Plasma [facility] Glucose [Mass/volume ] in Serum or Plasma [facility] Glucose [Mass/volume ] in Serum or Plasma [facility] Glucose [Mass/volume ] in Serum or Plasma [facility] Hemoglobin [Presence ] in Urine [facility] Measurement of keton es in urine using dipstick [facility] Measurement of renal function [facility] Measurement of renal function [facility] Measurement of renal function [facility] Microscopic urinalysis [facility] Patient Education [facility] Work Phone: Patient referral [facility] Work Phone: pH of Urine [facility] Potassium [Moles/vol ume] in Serum or Plasma [facility] Potassium [Moles/vol ume] in Serum or Plasma [facility] Potassium [Moles/vol ume] in Serum or Plasma [facility] Sodium [Moles/volume ] in Serum or Plasma [facility] Sodium [Moles/volume ] in Serum or Plasma [facility] Sodium [Moles/volume ] in Serum or Plasma [facility] Specific gravity of Urine [facility] Urea nitrogen [Mass/ volume] in Serum or Plasma [facility] Urea nitrogen [Mass/ volume] in Serum or Plasma [facility] Urea nitrogen [Mass/ volume] in Serum or Plasma [facility] Urinalysis, blood, qualitative [facility] Urine dipstick for glucose [facility] Urine dipstick for leukocyte esterase [facility] Urine dipstick for nitrite [facility] Urine dipstick for protein [facility] Urine examination [facility] Urine microscopy: epithelial cells [facility] Urine Microscopy: wh ite cells [facility] Urobilinogen [Presen ce] in Urine [facility] Payers Date Payer Category Payer Self-pay [id number] 2009 Unknown [id number] Unknown [id number] 2.16.8 [id number] Unknown [id number] 2.16.8 [id number] Unknown [id number] 2.16.8 [id number] Unknown [id number] 2.16.8 [id number] Unknown [id number] 2.16.8 [id number] Unknown [id number] 2.16.8 [id number] Unknown [id number] 2.16.8 [id number] Unknown [id number] 2.16.8 [id number] Unknown [id number] 2.16.8 [id number] Unknown [id number] 2.16.8 [id number] Unknown [id number] 2.16.8 [id number] Unknown [id number] 2.16.8 [id number] Unknown [id number] 2.16.8 [id number] Unknown [id number] 2.16.8 [id number] Unknown [id number] 2.16.8 [id number] Social History Date Type Detail Facility Start: 05-05-2022 End: 03-29-2024 Tobacco smoking status NHIS Unknown if ever smoked [facility] Start: 1935 Sex Assigned At Female [facility] Start: 11-05-2024 Tobacco smoking status NHIS Ex-smoker (finding) [facility] Start: 02-17-2025 Sex Female (finding) [facility] NEGATED: Highlighted row Not [facility] Medical Equipment Procedure Code Equipment Code Equipment Origin al Text Equipment Identifier Dates EGD, with monitored anesthesia care Ligation clip, metallic [id number] [facility] Start: 11-07-2024 Goals Date Patient Goal Desired Activity /State Functional Status Date Assessment Result Facility 10-24-2023 Functional status Patient Activity Chair [facility] Work Phone: 10-24-2023 Functional status Activity Abili ty With Assist of 1 [facility] Work Phone: 10-24-2023 Functional status Assistive Becky soni Straight Cane [facility] Work Phone: 10-23-2023 Functional status Tolerates Activity Fair [facility] Work Phone: 05-07-2022 Functional status Ambulates [facility] Work Phone: Mental Status Date Assessment Result Facility 11-07-2024 Cognitive function Voice/Name [facility] Work Phone: 10-24-2023 Cognitive function Voice/Name [facility] Work Phone: 07-07-2022 Cognitive function Voice/Name [facility] Work Phone: 05-07-2022 Cognitive function Voice/Name [facility] Work Phone: Clinical Notes 10-22-2023 to 04-08-2025 Note Date & Type Note Facility 04-08-2025 Radiology Diagnostic study note [facility] Imaging Services [address] [address] Abd Inc Decub and/or Erect MR#: [id number] Acct: [id number] Name: SHENA HAMILTON Rep #: [id number] : 1935 F 89 From: Marek Hernandez MD PCP: Dr. Edis Harding MD Status: REG CLI Study:Abd Inc Decub and/or Erect Date of Exam : 04/07/25 Exam# [id number] Ordering Dr: Azam Harding MD PROCEDURE: ABD INC DECUB AND/OR ERECT 04/07/2025 REASON FOR EXAM: UNSPECIFIED ABDOMINAL PAIN TECHNIQUE: Two views; single upright AP view, 2 supine AP views to include the entire abdomen and pelvis, 3 total images COMPARISON: 02/26/2024 FINDINGS: No free air identified. Mild gaseous distention of loops of bowel in the right and left upper abdomen with associated air-fluid levels unclear if this is colonic or small bowel. Overall there is a paucity ofbowel gas in the mid to lower abdomen. If further clinical concern for possible obstruction may consider cross-sectional imaging. Partially calcified gallstone and an eggshell calcification previously noted to be associated with liver lesion againseen. Osteopenia. Leftward curvature thoracolumbar spine. Lumbar spondylosis/discogenic change. Numerous surgical clips left mid to lower abdomen. Aortoiliac atherosclerotic calcifications. RAD/Abd Inc Decub and/or Erect IMPRESSION: No free air identified. Mild gaseous distention of loops of bowel in the right and left upper abdomen with associated air-fluid levels unclear if this is colonic or small bowel. Overall there is a paucity of bowel gas in the mid to lower abdomen. If further clinical concern for possible obstruction may consider cross-sectional imaging. Reading Location: [id number] CC: Dr. Edis Harding MD ~ Energy Advisor: Signed [facility] 02-13-2025 Discharge summary Note Date/Time February 13, 2025 10:49am [facility] Physical Therapy [facility] [address] [place] [address] / REHABILITATION SERVICES DISCHARGE SUMMARY MR#: [id number] Acct: [id number] Name: SHENA HAMILTON Rep #: [id number] : 1935 89 From: Hector Holden PT, ATC Referring Dr.: Dr. Edis Harding MD Stat us: REG R Insurance: [facility] [employer] [facility] HMO SELF PAY INSURANCE Patient Information Patient Information: SHENA HAMILTON was seen in my office for initial evaluation on 09/25/24. The following Plan of Care was established for this patient: POC Established Initial Frequency: 2x /Week Initial Duration: 4-6 Weeks Anticipated Interventions Patient/Client Instruction: Educate patient on: Condition and Plan of Care For the Purpose of:: To improve self management Therapeutic Exercise to Include: Strength training, Endurance training, Balance training, Gait and locomotor training and Dynamic Lumbar Stabilization For the Purpose of:: To improve muscle performance and motor function, To improve ability to perform ADL's, To increase tolerance to activity/condition/position and To improve gait and locomotor functions Last Seen Last Seen: This patient was last seen in our office . Pertinent comments regarding their Physical therapy will appear below: Pt has not returned in greater than 30 days and is discharged at this time. At this point I will be discontinuing this patient from physical therapy. I would be happy to see this patient again in the future if found appropriate by the physician. Thank you! Hector Holden PT, ATC Balance/Gait/Functional tests Balance/Special Test Scores Functional Gait Assessment Score: 9 % Disability: 70.0000 Lower Extremity Functional Score: 32 <Electronically signed by Hector Holden PT, ATC> 02/13/25 1049 CC: Dr. Edis Harding MD ~ [facility] Signed [facility] Work Phone: 1(317) 599-997703-20-2025 Discharge summary [facility] Physical Therapy [facility] [address] [place] [address] / REHABILITATION SERVICES DISCHARGE SUMMARY MR#: [id number] Acct: [id number] Name: SHENA HAMILTON Rep #: [id number] : 1935 89 From: Hector Holden PT, ATC Referring Dr.: Dr. Edis Harding MD Stat us: REG RCR Insurance: [facility] [employer] [facility] HMO SELF PAY INSURANCE Patient Information Patient Information: SHENA HAMILTON was seen in my office for initial evaluation on 09/25/24. The following Plan of Care was established for this patient: POC Established Initial Frequency: 2x /Week Initial Duration: 4-6 Weeks Anticipated Interventions Patient/Client Instruction: Educate patient on: Condition and Plan of Care For the Purpose of:: To improve self management Therapeutic Exercise to Include: Strength training, Endurance training, Balance training, Gait and locomotor training and Dynamic Lumbar Stabilization For the Purpose of:: To improve muscle performance and motor function, To improve ability to perform ADL's, To increase tolerance to activity/condition/position and To improve gait and locomotor functions Last Seen Last Seen: This patient was last seen in our office . Pertinent comments regarding their Physical therapy willappear below: Pt has not returned in greater than 30 days and is discharged at this time. At this point I will be discontinuing this patient from physical therapy. I would be happy to see this patient again in the future if found appropriate by the physician. Thank you! Hector Holden, PT, ATC Balance/Gait/Functional tests Balance/Special Test Scores Functional Gait Assessment Score: 9 % Disability: 70.0000 Lower Extremity Functional Score: 32 02/13/25 1049 CC: Dr. Edis Harding MD ~ [facility] Signed [facility]12-12-2024 [facility] Medical Records Department [address] [place] [address] History Physical Exam 11/07/24 1125 MR#: [id number] Acct: [id number] Name: SHENA HAMILTON Rep #: [id number] : 1935 89 From: Luis Drew MD PCP: Dr. Edis Harding MD Status:REG [facility] [place] Location: [place] [address]-1 History and Physical Date of Admission: 11/07/24 Date of Service: 10/16/24 MR#: [id number] Acct: [id number] Name: SHENA HAMILTON Rep #: [id number] : 1935 Provider: Dr. Luis Drew MD Age/Sex: 89/F Location: [facility] Status: Signed Intake Vital Signs 07/11/2421:57 10/16/2410:02 Height 5 ft 7 in 5 ft 7 in Weight: 160 lb BMI 25.0 BP 120/84 H Blood Pressure Location Rt brachial Position Sitting Respiration 18 Pulse 66 Pulse Source Monitor Temp 97.3 F L Temp Source Temporal Pulse Oximetry (%) 100 Oxygen Delivery Method room air Intake Visit Reasons: GALLBLADDER/POSSIBLE EGD Chief Complaint: gallbladder/possible EGD Is patient in pain?: No Allergies morphine Adverse Reaction (Intermediate, Verified 10/16/24 10:03) Inflammation of vein Medications ???Medication ???Instructions ???Recorded ???Confirmed ???Type simvastatin 20 mg tablet 20 mg PO QHS cholesterol 10/22/13 10/16/24 History timolol maleate 0.5 % eye drops 1 drp DAILY eye health 11/01/13 10/16/24 History lisinopril 10 mg tablet 40 mg PO QHS blood pressure 04/10/19 10/16/24 History metoprolol succinate 25 mg 12.5 mg (1/2 x 25 mg) PO DAILY #30 10/24/23 10/16/24 Rx tablet,extended release 24 hr tabs oxycodone-acetaminophen 5 mg-325 1 tab PO Q6H PRN pain 5 days #20 03/29/24 10/16/24 Rx mg tablet (Percocet) tabs furosemide 40 mg tablet 40 mg PO DAILY PRN PRN edema 05/07/24 10/16/24 History ketorolac 10 mg tablet 10 mg PO Q6H PRN PRN pain 05/07/24 10/16/24 History amlodipine 5 mg tablet 5 mg PO DAILY 05/17/24 10/16/24 History ciprofloxacin HCl 500 mg tablet 500 mg PO BID #6 tabs 05/17/24 10/16/24 Rx (Cipro) ibuprofen 400 mg tablet 400 mg PO Q6H PRN fever or pain 05/17/24 10/16/24 Rx #20 tabs ondansetron 4 mg disintegrating 4 mg PO Q6H PRN PRN Nausea #15 tabs 07/11/24 10/16/24 Rx tablet Have you fallen in the past year?: No (Not specifically asked) PFS Medical History (Updated 10/16/24 @ 15:[address] Luis Drew MD) Cholelithiasis Kidney stones Loss of hearing Vaginitis Discoloration of skin Bladder disease Restless legs Migraine headache Difficulty swallowing Vomiting Leg cramps History of pain when walking History of echocardiogram Wears dentures Wears glasses Post-menopausal Cancer Depression Anxiety Alcohol use Ambulates with cane Arthritis High cholesterol Back pain Former smoker History of edema History of stress test FH: total knee replacement Hypertension Surgical History Hx of myomectomy Hx of colonoscopy Hx of external ear surgery Hx of bilateral cataract extraction Hx of dilation and curettage H/O removal of cyst H/O breast biopsy History of abdominal surgery Social History household members: spouse Smoking Status: Former smoker alcohol intake: current HPI HPI HPI: Patient is a 89-year-old female who presents for evaluation for recurrent vomiting episodes and some dysphagia. They are referred for surgical consultation from Dr. Harding. Patient is known to me from a inpatient stay related to a possible small bowel obstruction in April 2022 and thereafter underwent both EGD and colonoscopy in June 2022. Mrs. Hamilton communicates that she has experienced episodic vomiting that sidelined her for a week every couple of months. She describes these episodes as never starting the morning but otherwise does not seem to follow a particular pattern for time of day nor preceding diet. She reports that she initially feels nausea and it takes a while for the vomiting to start. She believes these episodes have been going on for a little over a year. She denies any associated bloating. She shares that there is sometimes associated abdominal pain but she goes on to characterize this as minimal compared to what [her] Bridge partners describe related to their gallbladder attacks. When this pain is present she believes it to be localized to the right abdomen and lower middle. She reports these episodes have been better lately but adds that 3 of the 4 weekends in August she dealt with such episodes. She additionally presents for swallowing difficulty. She at 1 point shares that she does not chandra (more content not included)...[facility]11-28-2023 Discharge summary Author Kristimaria isabel Negronrhonda [facility] October 24, 2023 2:32pm Note Date/Time October 24, 2023 10:03am [facility] Medical Records Department [address] [place] [address] Discharge Summary 10/24/23 1003 MR#: [id number] Acct: [id number] Name: SHENA HAMILTON Rep #:[id number] : 1935 88 From: Kristi Salazar MD PCP: Dr. Harley Harding MD Status: ADM IN Location: [place] [address] Providers Date of Admission: 10/22/23 Date of Discharge: 10/24/23 Primary Care Physician: Dr. Harley Harding MD Reason For Visit: NEW ONSET HF Diagnosis Discharge Diagnosis (1) Acute systolic CHF (congestive heart failure): Status: Acute Code(s): I50.21 - Acute systolic (congestive) heart failure (2) Hypertensive urgency: Status: Acute Code(s): I16.0 - Hypertensive urgency Plan #Acute heart failure * EF unknown * now feels much better. On room air. EKG showed no acute St changes * CXR showed bilateral interstitial edema and infiltrates. * on IV lasix 40mg bid and spironolactone * 2D echo ordered and pending. * #Hypertensive urgency: resolved. on lisinopril and metoprolol. Also on spironolactone. IV hydralazine prn. 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 PT/OT on board. #Hyperlipidemia:on statin DVT prophylaxis: lovenox Medications at Discharge Home Medications simvastatin 20 mg tablet 20 mg PO QHS cholesterol 10/22/13 timolol maleate 0.5 % eye drops 1 drp DAILY eye health 11/01/13 lisinopril 10 mg tablet 10 mg PO QHS blood pressure 04/10/19 omeprazole 20 mg capsule,delayed release 20 mg PO DAILY #30 caps 07/07/22 ondansetron 4 mg disintegrating tablet 4 mg PO Q8H PRN PRN Nausea #10 tabs 07/08/22 meloxicam 7.5 mg tablet 7.5 mg PO DAILY pain 08/29/23 furosemide 40 mg tablet 40 mg PO DAILY #30 tabs 10/24/23 metoprolol succinate 25 mg tablet,extended release 24 hr 12.5 mg (1/2 x 25 mg) PO DAILY #30 tabs 10/24/23 potassium chloride 20 mEq tablet,extended release(part/cryst) (Klor-Con M) 20 meq PO DAILY #30 tabs 10/24/23 Hospital Course Operations None Procedures 2-D Echocardiogram Summary of Care Provided Minutes Spent on Discharge: 55 Hospital Course: Patient is an 88-year-old female with past medical history as outlined was admitted through the ED on 10/22/2023 with a complaint of shortness of breath which have been going on for about 4 days prior to admission. She admitted to swelling in her lower extremities and said he had a supposed be on Lasix but hadnot been taking it because of the assisted frequency of urination. She had an associated cough and wheezing. Review of systems otherwise negative. On admission in the ED blood pressure was elevated at 230/117 but is subsequently came down after she was given Lasix and hydralazine. Chest x-ray showed bilateral interstitial infiltrates and small left pleural effusion consistent with edema and BNP was elevated at 536.5; EKG showed no acute ST changes. She was admitted and managed for heart failure with initially unknown EF. SHe was diuresed with IV lasix. Her shortness of breath improved and she felt much better. She had 2D echo which showed EF of 65% with stage 1 diastolic function and no regional wall motion abnormality. She remained stable and was discharged home on 10/24/2023. She was discharged on PO lasix 40mg daily with PO potassium 20meq daily. She is to follow up with her PCP within 1-2 weeks. SHe was counseled to be compliant with her lasix. She is to follow up with her PCP within 1-2 weeks. She was placed on metoprolol 12.5mg daily in addition to the lisinopril she was on to help with BP control. Patient was seen and examined prior to discharge. He had no complaints and had an uneventful night. Review of sytems is otherwise negative. Labs and vitals reviewed. HOme meds reviewed and reconciled. Physical Exam Const alert, oriented x3, no apparent distress and well nourished General Appearance: cooperative, comfortable and well developed Orientation / Consciousness: awake HEENT normocephalic, head/scalp atraumatic, hearing grossly normal bilaterally, moist oral mucous membranes and oropharynx normal Eyes PERRL and EOMs intact bilaterally Neck no lymphadenopathy and supple Lymph Lymphatic: no lymphadenopathy noted and no lymphedema noted Resp normal respiratory effort, normal air movement and clear to auscultation bilaterally Cardio regular rate, regular rhythm, S1 normal heart sound, S2 normal heart sound and no murmurs GI normal to inspection, nondistended, normoactive bowel sounds, soft to palpation,non-tender and non-distended Extremity normal capillary refill, no clubbing, cyanosis or edema and no calf tenderness General Extremity: no tenderness to palpation of joints or extremities Skin General Skin Exam: no breakdown Neuro oriented x3, CN's II-XII intact bilaterally, moves all extremities, no focal motor deficits, no sensory deficits noted and deep tendon reflexes 2+ bilaterally Sensorium / Orientation: awake Motor Exam: strength 5/5 throughout and general weakness Psych thought process normal and cooperative Appearance: appropriate Weight / BMI Weight Weight: 194 lb 10.691 oz Body Mass Index (BMI) 30.4 ABG / Lab / Microbiology Data 10/24/23 05:40 10/24/23 05:40 Laboratory: Laboratory Results - last 24 hr 10/24/23 05:40: WBC 4.8, RBC 4.55, Hgb 12.3, Hct 38.6, MCV 84.8, MCH 27.0, MCHC 31.9 L, RDW Std Deviation 42.9, RDW Coeff of Destin 13.7, Plt Count 281, MPV 10.5, Immature Gran % (Auto) 0.200, Neut % (Auto) 47.0, Lymph % (Auto) 37.7, [place] % (Auto) 10.3 H, Eos % (Auto) 4.0, Baso % (Auto) 0.8, Absolute Neuts (auto) 2.2, Absolute Lymphs (auto) 1.80, Nucleated RBC % 0, Sodium 141, Potassium 3.7, Chloride 107, Carbon Dioxide 27.0, Anion Gap 7, BUN 24 H, Creatinine 0.77, EstimCreat Clear Calc 38.54, Est GFR (MDRD) Af Amer 91, Est GFR (MDRD) Non-Af 75, BUN/Creatinine Ratio 31.2 H, Glucose 95, Calcium 9.5 Radiography Diagnostic Testing: Radiology Impression Echocardiogram 10/23/23 05:55 Interpretation Summary Normal LV size. Left ventricular systolic function is normal. The estimated ejection fraction is 65 %. Stage 1 diastolic dysfunction. Mild (1+) aortic valve insufficiency. Pulmonary artery systolic pressure is 32 mmHg. Ordering Physician: Amanuel Sidhu Referring Physician: Edis Harding Performed By: Callie Barnett RDCS, RVT D/C Instructions Discharge Diet: Low fat / Low cholesterol Weight Bearing Status: Weight bearing as tolerated Call your doctor if you observe: Fever of 101 or Higher, Shortness of breath, Dizziness, Swelling in the ankles, Chest pain and Increased palpitations (irregular heartbeat) Meaningful Use Info Meaningful Use Diagnoses (Choose all that apply): CHF CHF MEG/ARB ordered at discharge?: Yes Documented LVEF (%): 65 Discharge Plan Admission Admit Date/Time: 10/22/23 07:47 Primary Reason for Your Visit: acute HfpEF Attending Provider: Kristi Salazar Primary Care Provider: Harley Harding Consulting Providers: Amanuel Sidhu Instructions Patient Instructions: ED Heart Failure, Congestive (CHF) Discharge Orders/Prescriptions Prescriptions: New furosemide 40 mg tablet 40 mg PO DAILY Qty: 30 2RF potassium chloride [Klor-Con M20] 20 mEq tablet,ER particles/crystals 20 meq PO DAILY Qty: 30 1RF metoprolol succinate 25 mg Tablet Extended Release 24 Hr 12.5 mg PO DAILY Qty: 30 1RF Continued meloxicam 7.5 mg tablet 7.5 mg PO DAILY simvastatin 20 MG tablet 20 mg PO QHS Patient Comments: CHOLESTEROL LOWERING timolol maleate 1 DROP drops 1 drp Each Eye DAILY Patient Comments: GLAUCOMA lisinopril 10 MG tablet 10 mg PO QHS ondansetron 4 mg tablet,disintegrating 4 mg PO Q8H PRN PRN (Reason: Nausea) Qty: 10 0RF omeprazole 20 mg capsule,delayed release(DR/EC) 20 mg PO DAILY Qty: 30 2RF Referrals / Follow Up: Harley Harding MD [Primary Care Provider] - 10/31/23 9:20 am Disposition Disposition (needs filled in before D/C Order can be placed): Home, Self Care Charges/Coding Visit Charges Inpatient E&M: 49601 Disch Hosp >30min 10/24/23 1432 <Electronically signed by Kristi Salazar MD> Cosigner Signature (if applicable): CC: Dr. Harley Harding MD; Dr. Kristi Salazar MD~ Signed [facility] Work Phone: 1(571) 280-689911-28-2023 Consult note Author Shiva Holden [facility] October 24, 2023 10:25am Note Date/Time October 24, 2023 10:25am [facility] Medical Records Department [address] [place] [address] Counseling Note - Pharmacy 10/24/23 1024 MR#: [id number] Acct: [id number] Name: SHENA HAMILTON Rep #:[id number] : 1935 88 From: Shiva Holden PCP: Dr. Harley Harding MD Status: ADM IN Location: [facility] [id number] Pharmacy [facility] has performed discharge medication reconciliation and counseling for this patient. The patient's discharge medication list was reviewed for discrepancies and discrepancies were resolved. The patient was counseled on the following discharge medications and changes in medications for homegoing were reviewed. The Reason for Use, instructions for use, and potential side effects were reviewed for all new medications. The patient's questions regarding all of their medications were answered. 1. Furosemide 40 mg PO daily 2. Metoprolol succinate 12.5 mg PO daily 3. Potassium chloride 20 mEq PO daily The patient was able to verbally demonstrate an understanding of their dischargemedications. The patient was counselled on new medications by pharmacy assistant Chirag. Medications at Discharge Home Medications simvastatin 20 mg tablet 20 mg PO QHS cholesterol 10/22/13 timolol maleate 0.5 % eye drops 1 drp DAILY eye health 11/01/13 lisinopril 10 mg tablet 10 mg PO QHS blood pressure 04/10/19 omeprazole 20 mg capsule,delayed release 20 mg PO DAILY #30 caps 07/07/22 ondansetron 4 mg disintegrating tablet 4 mg PO Q8H PRN PRN Nausea #10 tabs 07/08/22 meloxicam 7.5 mg tablet 7.5 mg PO DAILY pain 08/29/23 furosemide 40 mg tablet 40 mg PO DAILY #30 tabs 10/24/23 metoprolol succinate 25 mg tablet,extended release 24 hr 12.5 mg (1/2 x 25 mg) PO DAILY #30 tabs 10/24/23 potassium chloride 20 mEq tablet,extended release(part/cryst) (Klor-Con M) 20 meq PO DAILY #30 tabs 10/24/23 10/24/23 1025 <Electronically signed by Shiva gonzalez> Date _ Shiva Spears Signature (if applicable): Date CC: ~ Signed [facility] Work Phone: 1(765) 211-388311-28-2023 Discharge summary Author Kristi Salazar [facility] October 24, 2023 10:03am Note Date/Time October 24, 2023 10:03am [facility] Medical Records Department [address] [place] [address] Instructions for Home/Discharge Instructions 10/24/23 1002 MR#: [id number] Acct: [id number] Name: SHENA HAMILTON Rep #:[id number] : 1935 88 From: Kristi Salazar MD PCP: Dr. Harley Harding MD Status: ADM IN Discharge Instructions Diet Discharge Diet: Low fat / Low cholesterol Activity Discharge Activity: Return to Normal Activity Weight Bearing Status: Weight bearing as tolerated Dressing / Incision Call your doctor if you observe: Fever of 101 or Higher, Shortness of breath, Dizziness, Swelling in the ankles, Chest pain and Increased palpitations (irregular heartbeat) Follow Up Care Test Results: Test results from this visit will be discussed in further detail at your follow- up appointment, if applicable. Discharge Plan Admission Admit Date/Time: 10/22/23 07:47 Primary Reason for Your Visit: acute HfpEF Attending Provider: Kristi Salazar Primary Care Provider: Harley Harding Consulting Providers: Amanuel Sidhu Instructions Patient Instructions: ED Heart Failure, Congestive (CHF) Discharge Orders/Prescriptions Prescriptions: New furosemide 40 mg tablet 40 mg PO DAILY Qty: 30 2RF potassium chloride [Klor-Con M20] 20 mEq tablet,ER particles/crystals 20 meq PO DAILY Qty: 30 1RF metoprolol succinate 25 mg Tablet Extended Release 24 Hr 12.5 mg PO DAILY Qty: 30 1RF Continued meloxicam 7.5 mg tablet 7.5 mg PO DAILY simvastatin 20 MG tablet 20 mg PO QHS Patient Comments: CHOLESTEROL LOWERING timolol maleate 1 DROP drops 1 drp Each Eye DAILY Patient Comments: GLAUCOMA lisinopril 10 MG tablet 10 mg PO QHS ondansetron 4 mg tablet,disintegrating 4 mg PO Q8H PRN PRN (Reason: Nausea) Qty: 10 0RF omeprazole 20 mg capsule,delayed release(DR/EC) 20 mg PO DAILY Qty: 30 2RF Referrals / Follow Up: Harley Harding MD [Primary Care Provider] - Within 1 Week Disposition Disposition (needs filled in before D/C Order can be placed): Home, Self Care 10/24/23 1003<Electronically signed by Kristi Salazar MD>Kristi Salazar MD CC: Dr. Harley Harding MD; Dr. Amanuel Sidhu MD ~ Signed [facility] Work Phone: 1(109) 432-633211-27-2023 Progress note Author Kristi Salazar [facility] October 23, 2023 4:08pm Note Date/Time October 23, 2023 2:37pm [facility] Medical Records Department [address] [place] [address] Progress Note 10/23/23 1431 MR#: [id number] Acct: [id number] Name: SHENA HAMILTON Rep #:[id number] : 1935 88 From: Kristi Salazar MD PCP: Dr. Harley Harding MD Status: ADM IN Location: [place] [address] Subjective Subjective Patient seen and examined. She had no complaints and felt well. She denied any fever, chills, cough, chest pain, palpitations, dizziness, nausea, vomiting or any other symptoms. Review of systems is otherwise negative. She is on room air. Objective Data Objective Data Vital Signs: Vital Signs Temp Pulse Resp BP Pulse Ox O2 Del Method O2 Flow Rate 97.8 F 68 16 127/45 H 98 Room Air 2 10/23/23 09:30 10/23/23 09:37 10/23/23 09:30 10/23/23 09:30 10/23/23 09:30 10/23/23 10:00 10/23/23 02:55 Oxygen Flow Rate (L/min) 2 Oxygen Delivery Method Room Air Weight: 195 lb 5.273 oz Body Mass Index (BMI) 30.6 Intake & Output: Intake and Output for Last 24 Hours 10/21/23 10/22/23 10/23/23 23:59 23:59 23:59 Intake Total 360 / 600 240 / 240 Output Total 2350 / 3150 1650 / 1650 Balance -1989 / -2550 -1410 / -1410 Lab / Micro Data 10/23/23 04:44 10/23/23 04:44 Labs: Laboratory Results - last 24 hr 10/23/23 04:44: WBC 6.0, RBC 4.24, Hgb 11.6 L, Hct 35.7 L, MCV 84.2, MCH 27.4, MCHC 32.5, RDW Std Deviation 42.5, RDW Coeff of Destin 13.8, Plt Count 270, MPV 10.4, Immature Gran % (Auto) 0.200, Neut % (Auto) 56.0, Lymph % (Auto) 30.7, [place] % (Auto) 10.1 H, Eos % (Auto) 2.5, Baso % (Auto) 0.5, Absolute Neuts (auto)3.3, Absolute Lymphs (auto) 1.83, Nucleated RBC % 0, Sodium 141, Potassium 3.1 L, Chloride 107, Carbon Dioxide 26.0, Anion Gap 8, BUN 27 H, Creatinine 0.85, Estim Creat Clear Calc 45.34, Est GFR (MDRD) Af Amer 82, Est GFR (MDRD) Non-Af 68, BUN/Creatinine Ratio 31.9 H, Glucose 103, Calcium 9.0, Triglycerides 77, Cholesterol 134, LDL Cholesterol 59, VLDL Cholesterol 15, HDL Cholesterol 60, TSH 0.72 Rhythm Strip Rhythm Strip: Sinus Rhythm Rate: 90 Ectopy: PVC(s) Physical Exam Const alert, oriented x3, no apparent distress and well nourished General Appearance: cooperative and well developed HEENT normocephalic, head/scalp atraumatic, moist oral mucous membranes and oropharynxnormal Eyes PERRL and EOMs intact bilaterally Neck no lymphadenopathy and supple Lymph Lymphatic: no lymphadenopathy noted and no lymphedema noted Resp normal respiratory effort, normal air movement and clear to auscultation bilaterally Cardio regular rate, regular rhythm, S1 normal heart sound, S2 normal heart sound and no murmurs GI normal to inspection, nondistended, normoactive bowel sounds, soft to palpation,non-tender and non-distended Extremity normal capillary refill, no clubbing, cyanosis or edema and no calf tenderness General Extremity: no tenderness to palpation of joints or extremities Skin General Skin Exam: no breakdown Neuro CN's II-XII intact bilaterally, no focal motor deficits, no sensory deficits noted and deep tendon reflexes 2+ bilaterally Motor Exam: strength 5/5 throughout and general weakness Psych thought process normal and cooperative Appearance: appropriate Assessment & Plan Assessment/Plan (1) Acute systolic CHF (congestive heart failure): (2) Hypertensive urgency: PLAN: Plan #Acute heart failure * EF unknown * now feels much better. On room air. EKG showed no acute St changes * CXR showed bilateral interstitial edema and infiltrates. * on IV lasix 40mg bid and spironolactone * 2D echo ordered and pending. * #Hypertensive urgency: resolved. on lisinopril and metoprolol. Also on spironolactone. IV hydralazine prn. 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 PT/OT on board. #Hyperlipidemia:on statin DVT prophylaxis: lovenox Charges/Coding Visit Charges Inpatient E&M: 42129 Subs Hosp L2 10/23/23 1608 <Electronically signed by Kristi Salazar MD> Kristi Salazar MD Cosigner Signature (if applicable): CC: ~ Signed [facility] Work Phone: 1([phone] 163-330011-26-2023 History and physical note Author Amanuel Sidhu [facility] October 22, 2023 9:13am Note Date/Time October 22, 2023 7:51am [facility] Medical Records Department [address] [place] [address] H&P Exam - Hospitalist 10/22/23 0746 MR#: [id number] Acct: [id number] Name: SHENA HAMILTON Rep #:[id number] : 1935 88 From: Amanuel aHll PCP: Dr. Harley Harding MD Status: ADM IN Location: [place] [address] HPI - General General Date of Admission: 10/22/23 Date of Service: 10/22/23 Chief Complaint: Shortness of breath, Progressive worsening for about 4 days. HPI Narrative SHENA HAMILTON, is a 88 F who Came to ED for progressive worsening of shortness ofbreath for about 14 days started around last Monday or . She felt she is legates short of breath on walking. She also felt more short of breath on laying down, orthopnea. She states she has to wake up in the night to Urinate as she has chronic urinary incontinence. She denies feeling of suffocation or PND. She felt mild chest congestion/tightness all around but denies chest pain pressure. She also had worsening of cough for about 4 days and wheezing but it was dry. No fever, sinus congestion or postnasal drip. Sheis vaccinated against COVID-19. She said she started having leg swelling about 3 to 4 months ago and her PCP puton Lasix without her diagnosis of heart failure. She denies weight gain but states she actually felt weight loss. Her blood pressure was very high when she came to the ED, 230/117 but after Hydralazine 20 mg IV and Lasix it came down to 126/78 and then 163/79. She is having good urination in ED. Vitals, labs, chest x-ray and EKG reviewed and discussed in assessment plan. [facility] Medical History Alcohol use Ambulates with cane Anxiety Arthritis Back pain Cancer Depression FH: total knee replacement Former smoker High cholesterol History of edema History of stress test Hypertension Post-menopausal Shortness of breath on exertion Wears dentures Wears glasses Home Medications simvastatin 20 mg tablet 20 mg PO QHS cholesterol 10/22/13 [History Last Taken Unknown] timolol maleate 0.5 % eye drops 1 drp DAILY eye health 11/01/13 [History Last Taken Unknown] lisinopril 10 mg tablet 10 mg PO QHS blood pressure 04/10/19 [History Last Taken Unknown] omeprazole 20 mg capsule,delayed release 20 mg PO DAILY #30 caps 07/07/22 [Rx Last Taken Unknown] ondansetron 4 mg disintegrating tablet 4 mg PO Q8H PRN PRN Nausea #10 tabs 07/08/22 [Rx Last Taken Unknown] meloxicam 7.5 mg tablet 7.5 mg PO DAILY 08/29/23 [History Last Taken Unknown] Allergy/AdvReac Type Severity Reaction Status Date / Time morphine AdvReac Intermediate Inflammation Verified 08/29/23 13:25 of vein Surgical History H/O breast biopsy H/O removal of cyst History of abdominal surgery Hx of bilateral cataract extraction Hx of dilation and curettage Hx of external ear surgery Social History household members: spouse Smoking Status: Former smoker alcohol intake: current ROS ROS Narrative Constitutional: Reports fatigue and weakness. No fever. HEENT: Reports systems reviewed and no addt'l complaints, except as documented Respiratory/Chest: As described in HPI. No chronic lung disease.No history of smoking. CVS: As described in HPI. Gastrointestinal: Denies coffee ground emesis, hematemesis or vomiting Genitourinary: Chronic urinary incontinence. States she has burning micturitionfor 1 day. Musculoskeletal: States he had a gouty attack in both big toes but much better improved. Mild pain in foot. Chronic degenerative arthritis. Denies acute jointpain or limited range of motion. Neurologic: Denies seizure-like symptoms. No acute or strokelike symptoms. skin: No ulcer. No rash Endocrinology: Reports systems reviewed and no addt'l complaints, except as documented Hematologic/Lymphatic: Reports systems reviewed and no addt'l complaints, exceptas documented Rest 14 ROS are negative except as mentioned in HPI Vital Signs Vital Signs Vital Signs: 10/22/23 05:54 10/22/23 06:03 10/22/23 06:11 Temperature 97.6 F L Temperature Source Temporal Pulse Rate 99 90 Respiratory Rate 26 H 29 H Respiratory Effort Respiratory Depth Respiratory Pattern Blood Pressure 234/117 H 229/100 H Blood Pressure Mean 156 143 Pulse Ox 97 93 100 Oxygen Delivery Method Nasal Cannula Nasal Cannula Nasal Cannula Oxygen Flow Rate (L/min) 2 2 2 10/22/23 06:20 10/22/23 06:40 10/22/23 07:07 Temperature 97.8 F 96.9 F L Temperature Source Temporal Temporal Pulse Rate 96 93 83 Respiratory Rate 38 H 22 H 22 H Respiratory Effort Respiratory Depth Respiratory Pattern Tachypnea Blood Pressure 166/64 H 126/78 H Blood Pressure Mean 98 94 Pulse Ox 97 98 Oxygen Delivery Method Nasal Cannula Nasal Cannula Oxygen Flow Rate (L/min) 2 2 10/22/23 07:11 Temperature Temperature Source Pulse Rate Respiratory Rate Respiratory Effort Short of Breath Labored Respiratory Depth Shallow Respiratory Pattern Tachypnea Blood Pressure Blood Pressure Mean Pulse Ox Oxygen Delivery Method Nasal Cannula Oxygen Flow Rate (L/min) 2 Weight Weight: 186 lb 11.704 oz Body Mass Index (BMI) 29.2 Physical Exam Narrative General: Alert, Oriented x3, Cooperative HEENT:Mild bilateral hearing impairment. Atraumatic, PERRLA, EOMI, Normocephalic Oral: Oral mucosa dry. No Gingival or Mucosal Lesions/ Ulcerations Neck: Supple, No JVD, Negative Carotid Bruits Lungs: Air entry diminished in bilateral lung bases. No crepitation/rhonchi Cardiovascular: Regular rate, Regular Rhythm, Normal S1, Normal S2, Systolic murmur over right second ICS and LLSB. Abdomen: Bowel Sounds Present, Soft, Non Tender, Non-Distended : No renal angle tenderness. No suprapubic tenderness. Extremities: Bilateral lower extremity pitting edema, left more than right. Left leg is more swollen after she had injury about 2 years ago edema, CapillaryRefill Less than 3 Seconds Skin: No rashes, No breakdown Musculoskeletal: No Tenderness to Palpation of Joints or Extremities. Left great toe tender and ROM restricted over right great toe Neurological: Cranial nerves II-XII grossly intact, DTR 2+/4. No acute focal neurological deficit. Psych/Mental Status: Normal Affect, Appropriate. Results Lab / Micro Data 10/22/23 06:05 10/22/23 06:05 Labs: Laboratory Results - last 24 hr 10/22/23 06:05: WBC 6.5, RBC 4.84, Hgb 13.1, Hct 41.6, MCV 86.0, MCH 27.1, MCHC 31.5 L, RDW Std Deviation 42.2, RDW Coeff of Destin 13.6, Plt Count 278, MPV 10.3, Immature Gran % (Auto) 0.300, Neut % (Auto) 49.2, Lymph % (Auto) 38.8, [place] % (Auto) 7.4, Eos % (Auto) 3.4, Baso % (Auto) 0.9, Absolute Neuts (auto) 3.2, Absolute Lymphs (auto) 2.52, Nucleated RBC % 0, Sodium 143, Potassium 3.5, Chloride 110 H, Carbon Dioxide 27.0, Anion Gap 6, BUN 24 H, Creatinine 0.77, Estim Creat Clear Calc 38.54, Est GFR (MDRD) Af Amer 91, Est GFR (MDRD) Non-Af 75, BUN/Creatinine Ratio 31.0 H, Glucose 128 H, Calcium 9.3, Troponin I High Sens 29, B-Natriuretic Peptide 536.5 H Rhythm Strip Rhythm Strip: Sinus Rhythm Rate: 90 Ectopy: PVC(s) Imagaing Radiology Impression Chest X-Ray 10/22/23 06:30 IMPRESSION: Bilateral interstitial infiltrates and small left pleural effusion may be consistent with edema or pneumonia. Electronically Signed: Briana Clarke MD at 6:45 EST , Assessment & Plan Assessment/Plan (1) Acute systolic CHF (congestive heart failure): (2) Hypertensive urgency: PLAN: Plan This is a 88-year-old female being admitted for progressive shortness of breath for about 4 days along with leg swelling elevated BNP consistent with new onset heart failure. 1. 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 Twelve-lead EKG individually reviewedand shows normal sinus rhythm With occasional PVCs at 90 bpm. Incomplete RBBB, QTc 486 ms. Previous EKG on 09/23/2022 shows anasarca with sinus arrhythmia, LAD LVH and old septal infarct. BNP elevated. Chest x-ray Individually reviewed and shows bilateral interstitial edema and infiltrates. Small left pleural effusion. Patient started on Lasix 40 mg IV twice daily And spironolactone 25 mgdaily. K3.5. .Heart failure core measures including intake and output, fluid restriction less than 1500 mL, daily weight monitoring, kidney and electrolytes monitoring. First 2 high-sensitivity troponin negative. ACS ruled out. 2D echo ordered for tomorrow AM. 2. Hypertensive urgency, With history of hypertension emergency during previous admission in April 2022.We will increase the dose of lisinopril.Monitor kidney function and electrolytes.Started on metoprolol succinate 12.5 mg daily and willtitrate up.Hydralazine 10 mg IV every 6 hourly as needed for SBP more than 180 mmHg. 3. Dyslipidemia, Bilateral degenerative arthritis status post bilateral TKR andpast history of partial small bowel obstruction or she was admitted in April 2022: Patient is moving her bowels normal. No abdominal pain. Partial profile tomorrow AM. Atorvastatin 20 mg daily at bedtime. PT and OT ordered. Living will/advanced directive/end of life care: Patient does have living will or advanced directive.Her and son is the power of criminal attorney for health. After discussion of benefits/risks procedures involved with full code, DNR CC arrest and DNR CC, the patient opted for DNRCC arrest with no intubation. Patient doesn't want artificial life support including intubation, tube feed, ventilator and/chest compression, central venous catheter, vasopressor and DC shock if needed Total time spent in [id number] encounter in discussion of advanced directive 17 minutes. Laboratory Results 10/22/23 06:05: WBC 6.5, RBC 4.84, Hgb 13.1, Hct 41.6, MCV 86.0, MCH 27.1, MCHC 31.5 L, RDW Std Deviation 42.2, RDW Coeff of Destin 13.6, Plt Count 278, MPV 10.3, Immature Gran % (Auto) 0.300, Neut % (Auto) 49.2, Lymph % (Auto) 38.8, [place] % (Auto) 7.4, Eos % (Auto) 3.4, Baso % (Auto) 0.9, Absolute Neuts (auto) 3.2, Absolute Lymphs (auto) 2.52, Nucleated RBC % 0, Sodium 143, Potassium 3.5, Chloride 110 H, Carbon Dioxide 27.0, Anion Gap 6, BUN 24 H, Creatinine 0.77, Estim Creat Clear Calc 38.54, Est GFR (MDRD) Af Amer 91, Est GFR (MDRD) Non-Af 75, BUN/Creatinine Ratio 31.0 H, Glucose 128 H, Calcium 9.3, Phosphorus 3.4, Magnesium 1.7, Total Bilirubin 0.70, Direct Bilirubin 0.21, AST 31, ALT 26, Alkaline Phosphatase 86, Troponin I High Sens 29 10/22/23 06:05: Troponin I High Sens 28, B-Natriuretic Peptide 536.5 H, Total Protein 7.0, Albumin 3.8, Globulin 3.2 Charges/Coding Visit Charges Inpatient E&M: 20594 Disch Hosp >30min 10/22/23912 <Electronically signed by Amanuel Sidhu MD> Cosigner Signature (if applicable): CC: Dr. Harley Harding MD; Dr. Amanuel Sidhu MD~ Signed ADDENDUM by Dr. Amanuel Sidhu MD on 10/22/23 at 0913 Procedures Hospitalists Procedures: 91656 Advncd Care Plan 30 Min 10/22/23912<Electronically signed by Amanuel Sidhu MD> Cosigner Signature (if applicable): cc: Dr. Harley Harding MD; Dr. Amanuel Sidhu MD ~* Signed [facility] Work Phone: 1([phone]) 397-669411-26-2023 Discharge summary Author Adi Holley [facility] October 22, 2023 7:48am Note Date/Time October 22, 2023 6:07am [facility] Medical Records Department [address] [place] [address] Emergency Department Summary 10/22/23 MR#: [id number] Acct: [id number] Name: SHENA HAMILTON Rep #:[id number] : 1935 88 From: Adi Holley MD PCP: Dr. Harley Harding MD Status: REG ER Location: ED HPI History of Present Illness Chief Complaint: Shortness of Breath Informant: patient and EMS Narrative Narrative: 88-year-old female presenting with shortness of breath that has been going on for the last 4 nights. It is only with lying down. During the day she states she feels fine. Her legs have been swollen for the past 4 months, the left one is always worse. No history of DVT or PE. No recent long travel out of the area or hospitalization or surgery. No chest discomfort even with deep inspiration but she feels like she is having trouble taking a deep breath because it is hard to breathe. No history of heart problems that she knows of. EMS states that on multiple checks including a manual, her blood pressure is in the 230s systolic. [facility] Medical History Alcohol use Ambulates with cane Anxiety Arthritis Back pain Cancer Depression FH: total knee replacement Former smoker High cholesterol History of edema History of stress test Hypertension Post-menopausal Shortness of breath on exertion Wears dentures Wears glasses Home Medications simvastatin 20 mg tablet 20 mg PO QHS cholesterol 10/22/13 [History Last Taken Unknown] timolol maleate 0.5 % eye drops 1 drp DAILY eye health 11/01/13 [History Last Taken Unknown] lisinopril 10 mg tablet 10 mg PO QHS blood pressure 04/10/19 [History Last Taken Unknown] omeprazole 20 mg capsule,delayed release 20 mg PO DAILY #30 caps 07/07/22 [Rx Last Taken Unknown] ondansetron 4 mg disintegrating tablet 4 mg PO Q8H PRN PRN Nausea #10 tabs 07/08/22 [Rx Last Taken Unknown] meloxicam 7.5 mg tablet 7.5 mg PO DAILY 08/29/23 [History Last Taken Unknown] Allergy/AdvReac Type Severity Reaction Status Date / Time morphine AdvReac Intermediate Inflammation Verified 08/29/23 13:25 of vein Surgical History H/O breast biopsy H/O removal of cyst History of abdominal surgery Hx of bilateral cataract extraction Hx of dilation and curettage Hx of external ear surgery Social History household members: spouse Smoking Status: Former smoker alcohol intake: current ROS ROS ED Constitutional Constitutional ED: Denies chills or fever(s) Eyes Eyes: Denies change in vision or diplopia ENT ENT ED: Denies rhinorrhea or sore throat Cardiovascular Cardiovascular: Reports leg edema, orthopnea and paroxysmal nocturnal dyspnea; Denies chest pain, palpitations or radiating jaw, neck or arm pain Respiratory/Chest Respiratory/Chest: Reports cough, dyspnea, orthopnea and paroxysmal nocturnal dyspnea; Denies sputum Gastrointestinal Gastrointestinal: Denies abdominal pain, diarrhea, nausea or vomiting Genitourinary Genitourinary ED: Denies dysuria or hematuria Musculoskeletal Musculoskeletal: Denies back pain or neck pain Integumentary Denies abscess or rash Neurologic Neurologic: Denies headache(s), paresthesias or weakness Psychiatric Psychiatric: Denies anxiety or suicidal thoughts EXAM Physical Exam Const Vital Signs: 10/22/23 05:54 10/22/23 06:03 10/22/23 06:11 Temperature 97.6 F L Temperature Source Temporal Pulse Rate 99 90 Respiratory Rate 26 H 29 H Respiratory Effort Respiratory Depth Respiratory Pattern Blood Pressure 234/117 H 229/100 H Blood Pressure Mean 156 143 Pulse Ox 97 93 100 Oxygen Delivery Method Nasal Cannula Nasal Cannula Nasal Cannula Oxygen Flow Rate (L/min) 2 2 2 10/22/23 06:20 10/22/23 06:40 10/22/23 07:07 Temperature 97.8 F 96.9 F L Temperature Source Temporal Temporal Pulse Rate 96 93 83 Respiratory Rate 38 H 22 H 22 H Respiratory Effort Respiratory Depth Respiratory Pattern Tachypnea Blood Pressure 166/64 H 126/78 H Blood Pressure Mean 98 94 Pulse Ox 97 98 Oxygen Delivery Method Nasal Cannula Nasal Cannula Oxygen Flow Rate (L/min) 2 2 10/22/23 07:11 Temperature Temperature Source Pulse Rate Respiratory Rate Respiratory Effort Short of Breath Labored Respiratory Depth Shallow Respiratory Pattern Tachypnea Blood Pressure Blood Pressure Mean Pulse Ox Oxygen Delivery Method Nasal Cannula Oxygen Flow Rate (L/min) 2 Positive well nourished and well developed General Appearance ED: well developed and NAD HEENT Reports moist mucous membranes normocephalic and atraumatic Eyes PERRL and EOMs intact bilaterally Neck full ROM and supple Neck Narrative: +JVD Resp Resp Narrative: Tachypneic, but in no respiratory distress. Bibasilar Rales and rhonchi. Cardio regular rate, regular rhythm and no murmurs GI non-tender and non-distended Auscultation: normoactive bowel sounds Palpation: soft Back/Spine no CVA tenderness General Back: other FROM Extremity normal to inspection General Extremety ED: Yes edema; Negative for pulses abnormal or tenderness General Extremity: edema right lower extremity trace and left lower extremity moderate (pitting); Negative for pulses abnormal Neuro oriented x3, CN's II-XII intact bilaterally and no sensory deficits noted Sensorium / Orientation: awake and alert Motor Exam: strength 5/5 throughout Psych mental status grossly normal Skin no rashes or lesions noted and no wounds MDM MDM MDM Narrative Medical decision making narrative: Given the patient's symptoms, severely elevated blood pressure, and clinical findings, I am highly suspicious that the patient is in acute congestive heart failure. Therefore she was given IV hydralazine, Lasix, and a duo nebulizer treatment while workup being obtained. EKG shows no acute injury pattern. There is artifact in some of the precordial leads, making it difficult to assess for LV strain although she does not have any significant signs of it in the limb leads. 1 view chest x- ray on my interpretation is consistent with pulmonary edema. Her troponin is within normal limits, her creatinine is normal with an elevated BUN similar to prior measurements, BNP is elevated. On reevaluation after the above treatments, her blood pressure is down to 166/64. She is breathing better. History & Record Review Additional record(s) reviewed:: Prior outpatient record (No prior echocardiogramor visits with cardiology) Lab Data Attestation: I reviewed the patient's lab results. Labs: Laboratory Results - last 24 hr 10/22/23 06:05 WBC 6.5 RBC 4.84 Hgb 13.1 Hct 41.6 MCV 86.0 MCH 27.1 MCHC 31.5 L RDW Std Deviation 42.2 RDW Coeff of Destin 13.6 Plt Count 278 MPV 10.3 Immature Gran % (Auto) 0.300 Neut % (Auto) 49.2 Lymph % (Auto) 38.8 [place] % (Auto) 7.4 Eos % (Auto) 3.4 Baso % (Auto) 0.9 Absolute Neuts (auto) 3.2 Absolute Lymphs (auto) 2.52 Nucleated RBC % 0 Sodium 143 Potassium 3.5 Chloride 110 H Carbon Dioxide 27.0 Anion Gap 6 BUN 24 H Creatinine 0.77 Estim Creat Clear Calc 38.54 Est GFR (MDRD) Af Amer 91 Est GFR (MDRD) Non-Af 75 BUN/Creatinine Ratio 31.0 H Glucose 128 H Calcium 9.3 Troponin I High Sens 29 B-Natriuretic Peptide 536.5 H Radiography Diagnostic Testing: Clinical Impression(s) from Imaging Studies Chest X-Ray 10/22/23 06:30 IMPRESSION: Bilateral interstitial infiltrates and small left pleural effusion may be consistent with edema or pneumonia. Electronically Signed: Briana Clarke MD at 6:45 EST , Rhythm Strip Rhythm Strip: Sinus Rhythm Rate: 90 Ectopy: PVC(s) EKG Initial EKG: Attestation: I personally reviewed and interpreted this EKG as follows: Interpretation: Sinus Rhythm, No Acute Injury Pattern and LAFB Comments: RSR' Prior EKG tracings: available for review Prior: Unchanged Management Discussion w/another healthcare provider: Hospitalist Discharge Plan Triage Chief Complaint: Shortness of Breath ED Provider: Adi Holley Dx/Rx/DC Orders Clinical Impression: Hypertensive urgency, Acute systolic CHF (congestive heart failure) Prescriptions: No Action meloxicam 7.5 mg tablet 7.5 mg PO DAILY simvastatin 20 MG tablet 20 mg PO QHS Patient Comments: CHOLESTEROL LOWERING timolol maleate 1 DROP drops 1 drp Each Eye DAILY Patient Comments: GLAUCOMA lisinopril 10 MG tablet 10 mg PO QHS ondansetron [ondansetron] 4 mg tablet,disintegrating 4 mg PO Q8H PRN PRN (Reason: Nausea) Qty: 10 0RF omeprazole 20 mg capsule,delayed release(DR/EC) 20 mg PO DAILY Qty: 30 2RF Primary Care Provider: Harley Harding Referrals: Harley Harding MD [Primary Care Provider] - Disposition Disposition: Acute Care Hospital [facility] What to do if you have Problems For any increased pain, shortness of breath, bleeding, nausea or vomiting, chestpain, or any unexpected problems, contact your Primary Care Provider. Call [facility] ([phone]) or report to the closest Emergency Room. Call 911 if necessary. 10/22/2348 <Electronically signed by Adi Holley MD> Cosigner Signature (if applicable): CC: Dr. Harley Harding MD ~ Signed [facility] Work Phone: [phone]) 142-327411-26-2023 Discharge summary Author Adi Holley [facility] October 22, 2023 7:48am Note Date/Time October 22, 2023 6:07am [facility] Medical Records Department [address] [place] [id number] Emergency Department Summary 10/22/23 MR#: [id number] Acct: [id number] Name: SHENA HAMILTON Rep #:[id number] : 1935 88 From: Adi Holley MD PCP: Dr. Harley Harding MD Status: REG ER Location: ED HPI History of Present Illness Chief Complaint: Shortness of Breath Informant: patient and EMS Narrative Narrative: 88-year-old female presenting with shortness of breath that has been going on for the last 4 nights. It is only with lying down. During the day she states she feels fine. Her legs have been swollen for the past 4 months, the left one is always worse. No history of DVT or PE. No recent long travel out of the area or hospitalization or surgery. No chest discomfort even with deep inspiration but she feels like she is having trouble taking a deep breath because it is hard to breathe. No history of heart problems that she knows of. EMS states that on multiple checks including a manual, her blood pressure is in the 230s systolic. [facility] Medical History Alcohol use Ambulates with cane Anxiety Arthritis Back pain Cancer Depression FH: total knee replacement Former smoker High cholesterol History of edema History of stress test Hypertension Post-menopausal Shortness of breath on exertion Wears dentures Wears glasses Home Medications simvastatin 20 mg tablet 20 mg PO QHS cholesterol 10/22/13 [History Last Taken Unknown] timolol maleate 0.5 % eye drops 1 drp DAILY eye health 11/01/13 [History Last Taken Unknown] lisinopril 10 mg tablet 10 mg PO QHS blood pressure 04/10/19 [History Last Taken Unknown] omeprazole 20 mg capsule,delayed release 20 mg PO DAILY #30 caps 07/07/22 [Rx Last Taken Unknown] ondansetron 4 mg disintegrating tablet 4 mg PO Q8H PRN PRN Nausea #10 tabs 07/08/22 [Rx Last Taken Unknown] meloxicam 7.5 mg tablet 7.5 mg PO DAILY 08/29/23 [History Last Taken Unknown] Allergy/AdvReac Type Severity Reaction Status Date / Time morphine AdvReac Intermediate Inflammation Verified 08/29/23 13:25 of vein Surgical History H/O breast biopsy H/O removal of cyst History of abdominal surgery Hx of bilateral cataract extraction Hx of dilation and curettage Hx of external ear surgery Social History household members: spouse Smoking Status: Former smoker alcohol intake: current ROS ROS ED Constitutional Constitutional ED: Denies chills or fever(s) Eyes Eyes: Denies change in vision or diplopia ENT ENT ED: Denies rhinorrhea or sore throat Cardiovascular Cardiovascular: Reports leg edema, orthopnea and paroxysmal nocturnal dyspnea; Denies chest pain, palpitations or radiating jaw, neck or arm pain Respiratory/Chest Respiratory/Chest: Reports cough, dyspnea, orthopnea and paroxysmal nocturnal dyspnea; Denies sputum Gastrointestinal Gastrointestinal: Denies abdominal pain, diarrhea, nausea or vomiting Genitourinary Genitourinary ED: Denies dysuria or hematuria Musculoskeletal Musculoskeletal: Denies back pain or neck pain Integumentary Denies abscess or rash Neurologic Neurologic: Denies headache(s), paresthesias or weakness Psychiatric Psychiatric: Denies anxiety or suicidal thoughts EXAM Physical Exam Const Vital Signs: 10/22/23 05:54 10/22/23 06:03 10/22/23 06:11 Temperature 97.6 F L Temperature Source Temporal Pulse Rate 99 90 Respiratory Rate 26 H 29 H Respiratory Effort Respiratory Depth Respiratory Pattern Blood Pressure 234/117 H 229/100 H Blood Pressure Mean 156 143 Pulse Ox 97 93 100 Oxygen Delivery Method Nasal Cannula Nasal Cannula Nasal Cannula Oxygen Flow Rate (L/min) 2 2 2 10/22/23 06:20 10/22/23 06:40 10/22/23 07:07 Temperature 97.8 F 96.9 F L Temperature Source Temporal Temporal Pulse Rate 96 93 83 Respiratory Rate 38 H 22 H 22 H Respiratory Effort Respiratory Depth Respiratory Pattern Tachypnea Blood Pressure 166/64 H 126/78 H Blood Pressure Mean 98 94 Pulse Ox 97 98 Oxygen Delivery Method Nasal Cannula Nasal Cannula Oxygen Flow Rate (L/min) 2 2 10/22/23 07:11 Temperature Temperature Source Pulse Rate Respiratory Rate Respiratory Effort Short of Breath Labored Respiratory Depth Shallow Respiratory Pattern Tachypnea Blood Pressure Blood Pressure Mean Pulse Ox Oxygen Delivery Method Nasal Cannula Oxygen Flow Rate (L/min) 2 Positive well nourished and well developed General Appearance ED: well developed and NAD HEENT Reports moist mucous membranes normocephalic and atraumatic Eyes PERRL and EOMs intact bilaterally Neck full ROM and supple Neck Narrative: +JVD Resp Resp Narrative: Tachypneic, but in no respiratory distress. Bibasilar Rales and rhonchi. Cardio regular rate, regular rhythm and no murmurs GI non-tender and non-distended Auscultation: normoactive bowel sounds Palpation: soft Back/Spine no CVA tenderness General Back: other FROM Extremity normal to inspection General Extremety ED: Yes edema; Negative for pulses abnormal or tenderness General Extremity: edema right lower extremity trace and left lower extremity moderate (pitting); Negative for pulses abnormal Neuro oriented x3, CN's II-XII intact bilaterally and no sensory deficits noted Sensorium / Orientation: awake and alert Motor Exam: strength 5/5 throughout Psych mental status grossly normal Skin no rashes or lesions noted and no wounds MDM MDM MDM Narrative Medical decision making narrative: Given the patient's symptoms, severely elevated blood pressure, and clinical findings, I am highly suspicious that the patient is in acute congestive heart failure. Therefore she was given IV hydralazine, Lasix, and a duo nebulizer treatment while workup being obtained. EKG shows no acute injury pattern. There is artifact in some of the precordial leads, making it difficult to assess for LV strain although she does not have any significant signs of it in the limb leads. 1 view chest x- ray on my interpretation is consistent with pulmonary edema. Her troponin is within normal limits, her creatinine is normal with an elevated BUN similar to prior measurements, BNP is elevated. On reevaluation after the above treatments, her blood pressure is down to 166/64. She is breathing better. History & Record Review Additional record(s) reviewed:: Prior outpatient record (No prior echocardiogramor visits with cardiology) Lab Data Attestation: I reviewed the patient's lab results. Labs: Laboratory Results - last 24 hr 10/22/23 06:05 WBC 6.5 RBC 4.84 Hgb 13.1 Hct 41.6 MCV 86.0 MCH 27.1 MCHC 31.5 L RDW Std Deviation 42.2 RDW Coeff of [place] 13.6 Plt Count 278 MPV 10.3 Immature Gran % (Auto) 0.300 Neut % (Auto) 49.2 Lymph % (Auto) 38.8 [place] % (Auto) 7.4 Eos % (Auto) 3.4 Baso % (Auto) 0.9 Absolute Neuts (auto) 3.2 Absolute Lymphs (auto) 2.52 Nucleated RBC % 0 Sodium 143 Potassium 3.5 Chloride 110 H Carbon Dioxide 27.0 Anion Gap 6 BUN 24 H Creatinine 0.77 Estim Creat Clear Calc 38.54 Est GFR (MDRD) Af Amer 91 Est GFR (MDRD) Non-Af 75 BUN/Creatinine Ratio 31.0 H Glucose 128 H Calcium 9.3 Troponin I High Sens 29 B-Natriuretic Peptide 536.5 H Radiography Diagnostic Testing: Clinical Impression(s) from Imaging Studies Chest X-Ray 10/22/23 06:30 IMPRESSION: Bilateral interstitial infiltrates and small left pleural effusion may be consistent with edema or pneumonia. Electronically Signed: Briana Clarke MD at 6:45 EST , Rhythm Strip Rhythm Strip: Sinus Rhythm Rate: 90 Ectopy: PVC(s) EKG Initial EKG: Attestation: I personally reviewed and interpreted this EKG as follows: Interpretation: Sinus Rhythm, No Acute Injury Pattern and LAFB Comments: RSR' Prior EKG tracings: available for review Prior: Unchanged Management Discussion w/another healthcare provider: Hospitalist Discharge Plan Triage Chief Complaint: Shortness of Breath ED Provider: Adi Holley Dx/Rx/DC Orders Clinical Impression: Hypertensive urgency, Acute systolic CHF (congestive heart failure) Prescriptions: No Action meloxicam 7.5 mg tablet 7.5 mg PO DAILY simvastatin 20 MG tablet 20 mg PO QHS Patient Comments: CHOLESTEROL LOWERING timolol maleate 1 DROP drops 1 drp Each Eye DAILY Patient Comments: GLAUCOMA lisinopril 10 MG tablet 10 mg PO QHS ondansetron [ondansetron] 4 mg tablet,disintegrating 4 mg PO Q8H PRN PRN (Reason: Nausea) Qty: 10 0RF omeprazole 20 mg capsule,delayed release(DR/EC) 20 mg PO DAILY Qty: 30 2RF Primary Care Provider: Harley Harding Referrals: Harley Harding MD [Primary Care Provider] - Disposition Disposition: Acute Care Hospital [facility] What to do if you have Problems For any increased pain, shortness of breath, bleeding, nausea or vomiting, chestpain, or any unexpected problems, contact your Primary Care Provider. Call [facility] ([phone]) or report to the closest Emergency Room. Call 911 if necessary. 10/22/23 0748 <Electronically signed by Adi Holley MD> Cosigner Signature (if applicable): CC: Dr. Harley Harding MD ~ Signed [facility] Work Phone: Discharge summary Author Nitin Astorga [facility] March 29, 2024 4:29am Note Date/Time March 29, 2024 4:26am [facility] Medical Records Department [address] [place] [address] Emergency Department Summary 03/29/24 MR#: [id number] Acct: [id number] Name: SHENA HAMILTON Rep #:[id number] : [id number] From: Nitin Astorga DO PCP: Dr. Edis Harding MD Status :REG ER Location: ED HPI History of Present Illness Chief Complaint: Flank Pain Informant: patient Narrative Narrative: Patient is a 88-year-old female with past medical history of hypertension hyperlipidemia and congestive heart failure. She was seen a few days ago secondary to abdominal/flank pain and found to have a kidney stone and UTI. Shewas discharged home and states she has been doing well but found that the pain medication stopped working today. She denies any fevers or chills or trauma but states secondary to the persistent pain she presents for evaluation. [facility] Medical History Alcohol use Ambulates with cane Anxiety Arthritis Back pain Cancer Depression FH: total knee replacement Former smoker High cholesterol History of edema History of stress test Hypertension Post-menopausal Shortness of breath on exertion Wears dentures Wears glasses Home Medications simvastatin 20 mg tablet 20 mg PO QHS cholesterol 10/22/13 [History Last Taken 10/21/23] timolol maleate 0.5 % eye drops 1 drp DAILY eye health 11/01/13 [History Last Taken 10/21/23] lisinopril 10 mg tablet 40 mg PO QHS blood pressure 04/10/19 [History Last Taken 10/21/23] omeprazole 20 mg capsule,delayed release 20 mg PO DAILY #30 caps 07/07/22 [Rx Last Taken 10/21/23] meloxicam 7.5 mg tablet 7.5 mg PO DAILY pain 08/29/23 [History Last Taken 10/21/23] furosemide 40 mg tablet 40 mg PO DAILY #30 tabs 10/24/23 [Rx Last Taken Unknown] metoprolol succinate 25 mg tablet,extended release 24 hr 12.5 mg (1/2 x 25 mg) PO DAILY #30 tabs 10/24/23 [Rx Last Taken Unknown] cefuroxime axetil 500 mg tablet 500 mg PO BID #14 tabs 03/25/24 [Rx Last Taken Unknown] hydrocodone-acetaminophen 5-325mg 5mg-325mg 1 tab PO Q6H PRN PRN Pain 3 days #10TABLETS 03/25/24 [Rx Last Taken Unknown] ketorolac 10 mg tablet 10 mg PO Q6H PRN pain 5 days #20 tabs 03/29/24 [Rx Last Taken Unknown] oxycodone-acetaminophen 5 mg-325 mg tablet (Percocet) 1 tab PO Q6H PRN pain 5 days #20 tabs 03/29/24 [Rx Last Taken Unknown] tamsulosin 0.4 mg capsule (Flomax) 0.4 mg PO QHS #14 caps 03/29/24 [Rx Last Taken Unknown] Allergy/AdvReac Type Severity Reaction Status Date / Time morphine AdvReac Intermediate Inflammation Verified 03/29/24 01:31 of vein Surgical History H/O breast biopsy H/O removal of cyst History of abdominal surgery Hx of bilateral cataract extraction Hx of dilation and curettage Hx of external ear surgery Social History household members: spouse Smoking Status: Former smoker alcohol intake: current ROS ROS ED Constitutional Constitutional ED: Denies chills or fever(s) Eyes Eyes: Denies change in vision ENT ENT ED: Denies sore throat Cardiovascular Cardiovascular: Denies chest pain Respiratory/Chest Respiratory/Chest: Denies cough or dyspnea Gastrointestinal Gastrointestinal: Reports abdominal pain; Denies diarrhea, nausea or vomiting Genitourinary Genitourinary ED: Reports other Details: Positive flank pain ; Denies dysuria or hematuria Musculoskeletal Musculoskeletal: Denies back pain or myalgias Integumentary Denies rash Neurologic Neurologic: Denies headache(s) Hematologic/Lymphatic Hematologic/Lymphatic: Denies easy bleeding or easy bruising EXAM Physical Exam Const Vital Signs: 03/29/24 01:30 Temperature 98.2 F Temperature Source Temporal Pulse Rate 70 Respiratory Rate 17 Blood Pressure 230/69 H Blood Pressure Mean 122 Pulse Ox 99 Oxygen Delivery Method Room Air Positive well nourished and well developed General Appearance ED: well developed; Negative for pallor HEENT HEENT Narrative: Normocephalic atraumatic Eyes PERRL and EOMs intact bilaterally General Eye ED: Negative for scleral icterus Neck supple Resp normal respiratory effort and clear to auscultation bilaterally Cardio regular rate and regular rhythm Rate: other Other Details: Heart is regular rate and rhythm Radial and carotid pulses are equal and symmetric GI non-distended GI Narrative: Abdomen is soft and nondistended with hypoactive bowel sounds. Patient has mild/faint pain on palpation in the right lower quadrant. No voluntary guardingor rigidity. No pulsatile mass or fluid wave. Negative [place] sign. Auscultation: hypoactive bowel sounds Palpation: soft Back/Spine Back/Spine Narrative: Positive right CVA pain noted Extremity normal to inspection Neuro oriented x3, CN's II-XII intact bilaterally and no sensory deficits noted Sensorium / Orientation: alert Motor Exam: strength 5/5 throughout Psych mental status grossly normal Skin no rashes or lesions noted and no wounds Skin Narrative: No overlying soft tissue skin changes to suggest trauma or infection General Skin Exam: Negative for jaundice or pallor MDM MDM MDM Narrative Medical decision making narrative: Patient presented to the ER hypertensive but otherwise with stable vitals. She reports pain along the right flank and abdomen without trauma and denies any dysuria or bouts of nausea/vomiting. Chart review reveals she was recently seenfor kidney stone on the same side as well as UTI. There was concern she could have developed acute kidney injury or urosepsis based on her worsening pain and therefore repeat laboratory studies and CT scan were obtained. Labs showed overall stable kidney function with her creatinine progressing from 1.26-1.5 butthis changes not sufficient to warrant acute kidney injury. Urine sample went from +4 bacteria down to 0 indicating the antibiotic is appropriate. CT scan confirms stone in the distal right ureter roughly similar to the previous image. After hydration as well as treatment with Toradol and fentanyl patient had resolution of pain. Therefore at this time as she is not uroseptic does not have acute kidney injury and her pain has been resolved/controlled I do not feelthere is need for admission or transfer and she is otherwise safe for discharge History & Record Review Discussion w/independent historian: Patient Lab Data Attestation: I reviewed the patient's lab results. Labs: Laboratory Results - last 24 hr 03/29/24 03/29/24 02:15 03:34 WBC 7.0 RBC 4.41 Hgb 11.9 L Hct 36.5 L MCV 82.8 MCH 27.0 MCHC 32.6 RDW Std Deviation 42.5 RDW Coeff of [place] 14.1 Plt Count 191 MPV 10.3 Immature Gran % (Auto) 0.300 Neut % (Auto) 73.9 H Lymph % (Auto) 15.6 L [place] % (Auto) 8.7 Eos % (Auto) 1.1 Baso % (Auto) 0.4 Absolute Neuts (auto) 5.2 Absolute Lymphs (auto) 1.09 Nucleated RBC % 0 Sodium 139 Potassium 3.8 Chloride 108 H Carbon Dioxide 26.0 Anion Gap 5 BUN 28 H Creatinine 1.50 H Estim Creat Clear Calc 27.83 Est GFR (MDRD) Af Amer 42 L Est GFR (MDRD) Non-Af 35 L BUN/Creatinine Ratio 18.7 Glucose 105 Calcium 9.6 Urine Color Yellow Urine Clarity Clear Urine pH 6.0 Ur Specific [place] 1.015 Urine Protein 30 H Urine Glucose (UA) Normal Urine Ketones 15 H Urine Occult Blood 50 H Urine Nitrite Negative Urine Bilirubin Negative Urine Urobilinogen Normal Ur Leukocyte Esterase Negative Urine RBC 5-10 SEEN Urine WBC 0 SEEN Ur Squamous Epith Cells 0-5 SEEN Urine Bacteria 0 SEEN Urine Mucus 0 SEEN Radiography Diagnostic Testing: Clinical Impression(s) from Imaging Studies Abdomen/Pelvis CT 03/29/24 02:03 IMPRESSION: Mild right hydroureteronephrosis which is similar to prior. Distal right ureteral calculus noted. Cholelithiasis. Electronically Signed: Ramsey Clarke MD at 3:53 EDT Reading Location ID and State: [address] [place] [address] Tel , Service support , Discharge Plan Triage Chief Complaint: Flank Pain ED Provider: Nitin Astorga Dx/Rx/DC Orders Clinical Impression: Renal colic, Ureterolithiasis, Hyperlipidemia, Hypertension Instructions: ED Kidney Stone with Pain Prescriptions: New oxycodone-acetaminophen [Percocet] 5-325 mg tablet 1 tab PO Q6H PRN (Reason: pain) 5 Days Qty: 20 0RF tamsulosin [Flomax] 0.4 mg capsule 0.4 mg PO QHS Qty: 14 0RF ketorolac 10 mg tablet 10 mg PO Q6H PRN (Reason: pain) 5 Days Qty: 20 0RF No Action meloxicam 7.5 mg tablet 7.5 mg PO DAILY simvastatin 20 MG tablet 20 mg PO QHS Patient Comments: CHOLESTEROL LOWERING timolol maleate 1 DROP drops 1 drp Each Eye DAILY Patient Comments: GLAUCOMA lisinopril 10 MG tablet 40 mg PO QHS furosemide 40 mg tablet 40 mg PO DAILY Qty: 30 2RF metoprolol succinate 25 mg Tablet Extended Release 24 Hr 12.5 mg PO DAILY Qty: 30 1RF hydrocodone-acetaminophen 5-325 mg tablet 1 tab PO Q6H PRN PRN (Reason: Pain) 3 Days Qty: 10 0RF cefuroxime axetil 500 mg tablet 500 mg PO BID Qty: 14 0RF omeprazole 20 mg capsule,delayed release(DR/EC) 20 mg PO DAILY Qty: 30 2RF Primary Care Provider: Edis Harding Referrals: Edis Harding MD [Primary Care Provider] - Hilda Strickland MD [Med Staff - Active Staff] - Activity Restrictions/Additional Instructions: Stop taking the [place]/hydrocodone and begin using the Percocet for stronger painrelief. Stop your daily meloxicam/Mobic and begin taking Toradol/ketorolac withthe Percocet for synergistic pain relief/control. Continue your antibiotics as it is resolving the urinary tract infection and follow-up with urology for repeat evaluation. If you develop a fever over 100.4 have worsening pain despite the new medications or any further concerns please return to the ER for repeat evaluation Disposition Disposition: Home, Self Care What to do if you have Problems For any increased pain, shortness of breath, bleeding, nausea or vomiting, chestpain, or any unexpected problems, contact your Primary Care Provider. Call [facility] ([phone]) or report to the closest Emergency Room. Call 911 if necessary. 03/29/24 0429 <Electronically signed by Nitin Astorga DO> Cosigner Signature (if applicable): CC: Dr. Edis Harding MD ~ Signed [facility] Work Phone: Evaluation note* Diagnosis Onset Date Resolution Status Adynamic ileus acute Hypertensive urgency acute [facility] Work Phone: Evaluation note* Diagnosis Onset Date Resolution Status Adynamic ileus acute Hypertensive urgency acute Small intestine obstruction acute [facility] Work Phone: Evaluation note* Diagnosis Onset Date Resolution Status Adynamic ileus resolved Hypertensive urgency resolve d Small intestine obstruction resolved Decreased stool caliber acut e Vomiting in adult acute GERD (gastroesophageal reflux disease) chronic [facility] Work Phone: Evaluation noteNo assessment information available [facility] Work Phone: Evaluation note* Diagnosis Onset Date Resolution Status Multiple thyroid nodules acu te [facility] Work Phone: Evaluation note* Diagnosis Onset Date Resolution Status Multiple thyroid nodules acu te Acute systolic CHF (congestive heart failure) acute Hypertensive urgency acute [facility] Work Phone: Evaluation note* Diagnosis Onset Date Resolution Status Multiple thyroid nodules acu te Acute systolic CHF (congestive heart failure) resolved Hypertensive urgency resolve d [facility] Work Phone: Evaluation note* Diagnosis Onset Date Resolution Status Acute systolic CHF (congestive heart failure) resolved Hypertensive urgency resolve d [facility] Work Phone: Hospital Discharge instructions Additional Instructions Stop taking the [place]/hydrocodone and begin using the Percocet for stronger pain relief. Stop your daily meloxicam/Mobic and begin taking Toradol/ketorolac with the Percocet for synergistic pain relief/control. Continue your antibiotics as it is resolving the urinary tract infection and follow-up with urology for repeat evaluation. If you develop a fever over 100.4 have worsening pain despite the new medications or any further concerns please return to the ER for [facility] Work Phone: Reason for referral (narrative)No reason for referral information availableNationwide Children'S Hospital Work Phone: Summary Purpose Family History No Family History Records FoundNo Family History Records Found Advance Directives No Advanced Directives Records Found Advance Directive Response Recorded Date/ Time Advance Directives Yes November 01, 2013 3:24pm Living Will Yes May 05, 2022 1 :42pm Power of [address] [employer] Yes May 05, 2022 1:42pm Advance Directive Response Recorded Date/ Time Advance Directives Yes November 01, 2013 3:24pm Living Will Yes May 05, 2022 1 1:26pm Power of [address] [employer] Yes May 05, 2022 11:26pm Advance Directive Response Recorded Date/ Time Name of Medical Power of [address] [employer]endor Olena Hamilton () May 05, 2022 11:26pm Advance Directives Yes November 01, 2013 3:24pm Living Will Yes May 05, 2022 1 1:26pm Power of [address] [employer]endor Yes May 05, 2022 11:26pm Advance Directive Response Recorded Date/ Time Name of Medical Power of [address] [employer]endor Olena Hamilton () May 05, 2022 11:26pm Name of Medical Power of [address] [employer]endor OLENA HAMILTON July 05, 2022 8:51am Advance Directives Yes November 01, 2013 3:24pm Living Will Yes July 05, 2022 8:51am Power of [address] [employer] Yes July 05 8:51am Advance Directive Response Recorded Date/ Time Name of Medical Power of [address] [employer] Olena Hamilton () May 05, 2022 11:26pm Name of Medical Power of [address] [employer]endor OLENA HAMILTON July 05, 2022 8:51am Name of Medical Power of [address] [employer] POA July 08, 2022 8:28pm Advance Directives Yes November 01, 2013 3:24pm Living Will Yes July 08 8:28pm Power of [address] Vendor Yes July 08 022 8:28pm Advance Directive Response Recorded Date/ Time Name of Medical Power of [address] [employer]endor OLENA HAMILTON July 05, 2022 8:51am Name of Medical Power of [address] [employer]endor POA July 08, 2022 8:28pm Advance Directives Yes November 01, 2013 3:24pm Living Will Yes July 08 8:28pm Power of [address] [employer]endor Yes July 08 022 8:28pm Advance Directive Response Recorded Date/ Time Name of Medical Power of [address] [employer]endor OLENA HAMILTON July 05, 2022 8:51am Name of Medical Power of [address] [employer] POA July 08, 2022 8:28pm Name of Medical Power of [address] [employer]endor Olena Hamilton September 23, 2022 6:54pm Advance Directives Yes November 01, 2013 3:24pm Living Will Yes September 23 6:54pm Power of [address] [employer] Yes September 23, 2022 6:54pm Advance Directive Response Recorded Date/ Time Name of Medical Power of [address] [employer]endor Olena Hamilton September 23, 2022 5:54pm Advance Directives Yes November 01, 2013 2:24pm Living Will Yes September 23 5:54pm Power of [address] [employer] Yes September 23, 2022 5:54pm Advance Directive Response Recorded Date/ Time Advance Directives Yes November 01, 2013 3:24pm Living Will Yes September 23 6:54pm Power of [address] [employer] Yes September 23, 2022 6:54pm Advance Directive Response Recorded Date/ Time Name of Medical Power of [address] [employer]endor Olena October 22, 2023 6:00am Advance Directives Yes November 01, 2013 2:24pm Living Will Yes October 22, 023 6:00am Power of [address] [employer] Yes October 22, 2023 6:00am Advance Directive Response Recorded Date/ Time Name of Medical Power of [address] [employer]endor Olena (guerrero santos) October 22, 2023 9:07am Advance Directives Yes November 01, 2013 2:24pm Living Will Yes October 22, 023 9:07am Power of [address] [employer]endor Yes October 22, 2023 9:07am Advance Directive Response Recorded Date/ Time Advance Directives Yes November 01, 2013 3:24pm Living Will Yes October 22, 023 10:07am Power of [address] [employer] Yes October 22, 2023 10:07am Advance Directive Response Recorded Date/ Time Name of Medical Power of [address] [employer]endor guerrero Patel nd March 24, 2024 10:16pm Advance Directives Yes November 01, 2013 3:24pm Living Will Yes March 24, 2024 10:16pm Power of [address] [employer] Yes March 24 10:16pm Advance Directive Response Recorded Date/ Time Name of Medical Power of [address] [employer]endor guerrero Patel nd March 24, 2024 10:16pm Name of Medical Power of [address] [employer]endor March 29, 2024 1:30am Advance Directives Yes November 01, 2013 3:24pm Living Will Yes March 29, 2024 1: 30am Power of [address] [employer]endor Yes March 29, 2024 1:30am Advance Directive Response Recorded Date/ Time Living Will Yes July 11 10:15pm Do you have a Healthcare Power of [address] [employer]endor? Yes July 11, 2024 10:15pm Living Will Yes November 05 024 10:54am Do you have a Healthcare Power of [address] [employer]endor? Yes November 05, 2024 10:54am Name of Medical Power of [address] Vendor November 05, 2024 10:54am Advance Directives Yes November 01, 2013 3:24pm Advance Directive Response Recorded Date/ Time Living Will Yes July 11 10:15pm Do you have a Healthcare Power of [address] [employer]endor? Yes July 11, 2024 10:15pm Advance Directives Yes November 01, 2013 3:24pm Chief Complaint and Reason for Visit Chief Complaint HYPERTENSIVE EMERGEN CY, ILEUS HYPERTENSIVE EMERGENCY, ILEUS Reason for Visit Adynamic ileus Hypertensive urgency Chief Complaint HYPERTENSIVE EMERGEN CY, ILEUS HYPERTENSIVE EMERGENCY, ILEUS HYPERTENSIVE EMERGENCY, ILEUS HYPERTENSIVE EMERGENCY, ILEUS HYPERTENSIVE EMERGENCY, ILEUS Reason for Visit Adynamic ileus Hypertensive urgency Small intestine obstruction Chief Complaint HYPERTENSIVE EMERGEN CY, ILEUS HYPERTENSIVE EMERGENCY, ILEUS HYPERTENSIVE EMERGENCY, ILEUS HYPERTENSIVE EMERGENCY, ILEUS HYPERTENSIVE EMERGENCY, ILEUS HOSP F/U SMALL BOWEL OBSTRUCTION & DISCUSS CSCOPE EORDER Reason for Visit Adynamic ileus Hypertensive urgency Small intestine obstruction Decreased stool caliber Vomiting in adult GERD (gastroesophageal reflux disease) Chief Complaint HYPERTENSIVE EMERGEN CY, ILEUS HYPERTENSIVE EMERGENCY, ILEUS HYPERTENSIVE EMERGENCY, ILEUS HYPERTENSIVE EMERGENCY, ILEUS HYPERTENSIVE EMERGENCY, ILEUS HOSP F/U SMALL BOWEL OBSTRUCTION & DISCUSS CSCOPE EORDER E ORDER Reason for Visit Adynamic ileus Hypertensive urgency Small intestine obstruction Decreased stool caliber Vomiting in adult GERD (gastroesophageal reflux disease) Chief Complaint HYPERTENSIVE EMERGEN CY, ILEUS HYPERTENSIVE EMERGENCY, ILEUS HYPERTENSIVE EMERGENCY, ILEUS HYPERTENSIVE EMERGENCY, ILEUS HYPERTENSIVE EMERGENCY, ILEUS HOSP F/U SMALL BOWEL OBSTRUCTION & DISCUSS CSCOPE EORDER E ORDER ABD PAIN Reason for Visit Adynamic ileus Hypertensive urgency Small intestine obstruction Decreased stool caliber Vomiting in adult GERD (gastroesophageal reflux disease) Chief Complaint EORDER E ORDER ABD PAIN BACK PAIN/RX HERE Chief Complaint EORDER E ORDER ABD PAIN BACK PAIN/RX HERE n/v, CHANDRA and abd pain Chief Complaint BACK PAIN/RX HERE n/v, CHANDRA and abd pain DDD Chief Complaint DDD EORDER EORDER Chief Complaint EORDER EORDER EORDER Chief Complaint EORDER EORDER GOITER Chief Complaint EORDER GOITER THYROID NODULES Thyroid Nodules Reason for Visit Multiple thyroid nod ules Chief Complaint GOITER THYROID NODULES Thyroid Nodules NEW ONSET HF Reason for Visit Multiple thyroid nod ules Acute systolic CHF (congestive heart failure) Hypertensive urgency Chief Complaint GOITER THYROID NODULES Thyroid Nodules NEW ONSET HF NEW ONSET HF NEW ONSET HF Reason for Visit Multiple thyroid nod ules Acute systolic CHF (congestive heart failure) Hypertensive urgency Chief Complaint GOITER THYROID NODULES Thyroid Nodules NEW ONSET HF NEW ONSET HF NEW ONSET HF EORDER Reason for Visit Multiple thyroid nod ules Acute systolic CHF (congestive heart failure) Hypertensive urgency Chief Complaint GOITER THYROID NODULES Thyroid Nodules NEW ONSET HF NEW ONSET HF NEW ONSET HF EORDER Hallucinations, unspecified Reason for Visit Multiple thyroid nod ules Acute systolic CHF (congestive heart failure) Hypertensive urgency Chief Complaint THYROID NODULES Thyroid Nodules NEW ONSET HF NEW ONSET HF NEW ONSET HF EORDER Hallucinations, unspecified Reason for Visit Multiple thyroid nod ules Acute systolic CHF (congestive heart failure) Hypertensive urgency Chief Complaint NEW ONSET HF NEW ONSET HF NEW ONSET HF EORDER Hallucinations, unspecified HYPERCALCEMIA Reason for Visit Acute systolic CHF ( congestive heart failure) Hypertensive urgency Chief Complaint EORDER Hallucinations, unspecified HYPERCALCEMIA Chief Complaint Hallucinations, unsp ecified HYPERCALCEMIA EORDER Chief Complaint HYPERCALCEMIA EORDER ABD PAIN Chief Complaint HYPERCALCEMIA EORDER ABD PAIN flank Chief Complaint Admit Date 24 HOUR URINE November 04, 2024 3 :29pm Calculus of gallbladder without cholecys titis with December 10, 2024 11:03am GAIT INSTAB. RX HERE January 10, 2025 11:00am Chief Complaint Admit Date GAIT INSTAB. RX HERE January 10, 2025 11:00am EORDERS April 07, 2025 12:36 pm GAIT/LUMBAR RX HERE April 08, 2025 3:00p m Additional Source Comments INFORMATION SOURCE (unrecogn ized section and content) DATE CREATED AUTHOR 05/23/[address] [facility] DATE CREATED AUTHOR AUTHOR'S ORGANIZ ATION 06/06/2025 [facility] Goals (unrecognized section and content) Goals may be documented in a n alternate sectionGoals may be documented in an alternate sectionGoals may be documented in an alternate sectionGoals may be documented in an alternate sectionGoals may be documented in an alternate sectionGoals may be documented in an alternate sectionGoals may be documented in an alternate sectionGoals may be documented in an alternate sectionGoals may be documented in an alternate sectionGoals may be documented in an alternate sectionGoals may be documented in an alternate sectionGoals may be documented in an alternate sectionGoals may be documented in an alternate sectionGoals may be documented in an alternate section Care Teams (unrecognized sec tion and content) Team Status: Active Member Role Status Dates Dr. Harley Harding MD Family Provider Active Dr. Harley Harding MD Primary Care Provider Activ e Team Status: Inactive Member Role Status Dates Dr. Harley Harding MD Primary Care Provider, Attending Provider, Referring Provider Active Team Status: Inactive Member Role Status Dates Dr. Harley Harding MD Primary Care Provider Activ e Dr. Imani Knight MD Attending Provider, Emergency Provider Active Team Status: Active Member Role Status Dates Dr. Harley Harding MD Primary Care Provider, Attending Provider, Referring Provider Active Team Status: Inactive Member Role Status Dates Dr. Harley Harding MD Primary Care Provider, Refe rring Provider Active Dr. Luis Drew MD Attending Provider Active Team Status: Inactive Member Role Status Dates Dr. Harley Harding MD Primary Care Provider Activ e Dr. Luis Drew MD Attending Provider, Referring P rovider Active Team Status: Inactive Member Role Status Dates Dr. Harley Harding MD Primary Care Provider, Atte nding Provider Active Team Status: Active Member Role Status Dates Dr. Harley Harding MD Primary Care Provider Activ e Dr. Adi Holley MD Emergency Provider Active Dr. Amanuel Sidhu MD Admit Provider, Attending Provi bisi Active Team Status: Active Member Role Status Dates Dr. Harley Harding MD Primary Care Provider Activ e Dr. Adi Holley MD Emergency Provider Active Dr. Amanuel Sidhu MD Admit Provider, Other Provider Active Dr. Kristi Salazar MD Attending Provider, Other Prov ider Active Team Status: Active Member Role Status Dates Dr. Harley Harding MD Primary Care Provider Activ e Dr. Jack Rocha MD Attending Provider Active Team Status: Inactive Member Role Status Dates Dr. Harley aHrding MD Primary Care Provider Activ e Dr. Adi Holley MD Emergency Provider Active Dr. Amanuel Sidhu MD Admit Provider, Other Provider Active Dr. Kristi Salazar MD Attending Provider Active Team Status: Active Member Role Status Dates Dr. Edis Harding MD Family Provider Active Dr. Edis Harding MD Primary Care Provider Acti ve Team Status: Inactive Member Role Status Dates Dr. Edis Harding MD Primary Care Provider, Att ending Provider Active Team Status: Inactive Member Role Status Dates Dr. Edis Harding MD Primary Care Provider, Attending Provider, Referring Provider Active Team Status: Inactive Member Role Status Dates Dr. Edis Harding MD Primary Care Provider Acti ve Dr. Imani Knight MD Emergency Provider Active Team Status: Inactive Member Role Status Dates Dr. Edis Harding MD Primary Care Provider Acti ve Dr. Nitin Astorga DO Emergency Provider Active Team Status: Inactive Member Role Status Dates Dr. Edis Harding MD Primary Care Provider Acti ve Start: October 22, 2024 End: October 22, 2024 Dr. Edis Harding MD Attending Provider Active Start: October 22, 2024 End: October 22, 2024 Team Status: Inactive Member Role Status Dates Dr. Edis Harding MD Primary Care Provider Acti ve Start: November 04, 2024 End: November 04, 2024 Dr. Edis Harding MD Attending Provider Active Start: November 04, 2024 End: November 04, 2024 Dr. Edis Harding MD Referring Provider Active Start: November 04, 2024 End: November 04, 2024 Team Status: Inactive Member Role Status Dates Dr. Edis Harding MD Primary Care Provider Acti ve Start: November 07, 2024 End: November 07, 2024 Dr. Edis Harding MD Referring Provider Active Start: November 07, 2024 End: November 07, 2024 Dr. Luis Drew MD Attending Provider Active Start: November 07, 2024 End: November 07, 2024 Team Status: Active Member Role Status Dates Dr. Edis Harding MD Primary Care Provider Acti ve Start: November 07, 2024 Dr. Edis Harding MD Referring Provider Active Start: November 07, 2024 Dr. Luis Drew MD Attending Provider Active Start: November 07, 2024 Dr. Luis Drew MD Other Provider Active Sta rt: November 07, 2024 Team Status: Inactive Member Role Status Dates Dr. Edis Harding MD Primary Care Provider Acti ve Start: December 10, 2024 End: December 10, 2024 Dr. Luis Drew MD Attending Provider Active Start: December 10, 2024 End: December 10, 2024 Dr. Luis Drew MD Referring Provider Active Start: December 10, 2024 End: December 10, 2024 Team Status: Inactive Member Role Status Dates Dr. Edis Harding MD Primary Care Provider Acti ve Start: January 10, 2025 End: January 10, 2025 Dr. Eids Harding MD Attending Provider Active Start: January 10, 2025 End: January 10, 2025 Team Status: Active Member Role Status Dates Dr. Edis Harding MD Primary Care Provider Acti ve Team Status: Inactive Member Role Status Dates Dr. Edis Harding MD Primary Care Provider Acti ve Start: March 24, 2025 End: March 24, 2025 Dr. Edis Harding MD Attending Provider Active Start: March 24, 2025 End: March 24, 2025 Dr. Edis Harding MD Referring Provider Active Start: March 24, 2025 End: March 24, 2025 Team Status: Inactive Member Role Status Dates Dr. Edis Harding MD Primary Care Provider Acti ve Start: April 07, 2025 End: April 07, 2025 Dr. Edis Harding MD Attending Provider Active Start: April 07, 2025 End: April 07, 2025 Dr. Edis Harding MD Referring Provider Active Start: April 07, 2025 End: April 07, 2025 Team Status: Active Member Role Status Dates Dr. Edis Harding MD Primary Care Provider Acti ve Start: April 08, 2025 Dr. Edis Harding MD Attending Provider Active Start: April 08, 2025 Dr. Edis Harding MD Referring Provider Active Start: April 08, 2025 FOR RECORDS PERTAINING TO PATIENTS WHO ARE [...] BE BASED ON THE PRIMARY CLINICAL RECORDS. [facility] provides no warranty or guarantee of the accuracy or completeness of information in this document.
== END | disposition home or self-care (01) ==
PROVIDERS: PCP Family Medicine; Referring Provider Urology; Visit Provider Urology
DX: N32.81 Overactive bladder (principal); R10.9 Unspecified abdominal pain
CPT/HCPCS: 74176

== ENCOUNTER 2025-06-20 10:57 | Emergency (ER) | payer MEDICARE, SELFPAY ==
[2025-06-20 10:58] VITALS: BP 162/56; PULSE 58; RESP 14; TEMP 36.5; O2SAT 98
--- NOTE | 2025-06-20 11:25 | ED.VIS.LOWEX ---
HPI History of Present Illness Chief Complaint: Lower Extremity Injury Informant: patient and EMS Narrative Narrative: 89-year-old female presents with acute right hip area pain. She states he has been having this pain off and on for about 2 months or so, she had a very severe episode of it this morning. She got about bed, she was fine but then she took a step and have the pain. She states it is in the area behind her right ASIS almost in her abdomen, and sometimes radiates back toward her right lateral hip and buttock/pelvic brim posteriorly. She states right now that she is not bearing weight or moving and is not hurting. It is triggered with certain movements of the right lower extremity. She denies any GI symptoms. She has seen her doctor for this and was advised that she may have some type of bursitis. She has been seeing physical therapy for a different issue, it is basically because of balance, she states she is due to see them this afternoon in a couple hours for her last appointment there. She denies any other new symptoms such as numbness, weakness, denies any other falls or injuries recently to explain the severe episode that she had today but states it is all the same and that she is triggered it with movement of her right leg. [facility] Medical History Walker as ambulation aid Gout History of CHF (congestive heart failure) Cholelithiasis Kidney stones Loss of hearing Vaginitis Discoloration of skin Bladder disease Restless legs Migraine headache Difficulty swallowing Vomiting Leg cramps History of pain when walking History of echocardiogram Wears dentures Wears glasses Post-menopausal Cancer Depression Anxiety Alcohol use Ambulates with cane Arthritis High cholesterol Back pain Former smoker History of edema History of stress test FH: total knee replacement Hypertension Home Medications ?Medication ?Instructions ?Recorded ?Last Taken ?Type simvastatin 20 mg tablet 20 mg PO QHS cholesterol 10/22/13 10/21/23 History timolol maleate 0.5 % eye drops 1 drp DAILY eye health 11/01/13 10/21/23 History lisinopril 10 mg tablet 40 mg PO QHS blood pressure 04/10/19 05/15/24 History metoprolol succinate 25 mg 12.5 mg (1/2 x 25 mg) PO DAILY #30 11/28/23 12/12/24 Rx tablet,extended release 24 hr tabs furosemide 40 mg tablet 40 mg PO DAILY PRN PRN edema 05/07/24 Unknown History amlodipine 5 mg tablet 5 mg PO DAILY 05/17/24 11/07/24 History ibuprofen 400 mg tablet 400 mg PO Q6H PRN fever or pain 05/17/24 Unknown Rx #20 tabs ondansetron 4 mg disintegrating 4 mg PO Q6H PRN PRN Nausea #15 tabs 07/11/24 Unknown Rx tablet Allergy/AdvReac Type Severity Reaction Status Date / Time morphine AdvReac Intermediate Inflammation Verified 06/20/25 11:36 of vein Surgical History History of total bilateral knee replacement Hx of myomectomy Hx of colonoscopy Hx of external ear surgery Hx of bilateral cataract extraction Hx of dilation and curettage H/O removal of cyst H/O breast biopsy History of abdominal surgery Social History household members: spouse Smoking Status: Former smoker alcohol intake: current ROS ROS ED Constitutional Constitutional ED: Denies chills or fever(s) Eyes Eyes: Denies blurry vision or change in vision ENT ENT ED: Denies sore throat Cardiovascular Cardiovascular: Denies chest pain Respiratory/Chest Respiratory/Chest: Denies dyspnea Gastrointestinal Gastrointestinal: Denies abdominal pain, constipation, diarrhea, nausea or vomiting Musculoskeletal Musculoskeletal: Reports as per HPI, back pain, extremity pain and other Details: See HPI; pain from the right ASIS into the lateral right hip as well as the right posterior pelvis and SI joint area. ; Denies neck pain Integumentary Denies Abrasions, rash or wounds Neurologic Neurologic: Denies headache(s), paresthesias or weakness EXAM Physical Exam Const Vital Signs: 06/20/25 10:58 Temperature 97.7 F L Temperature Source Oral Pulse Rate 58 L Respiratory Rate 14 Blood Pressure 162/56 H Blood Pressure Mean 91 Pulse Ox 98 Oxygen Delivery Method Room Air Positive well nourished and well developed General Appearance ED: well developed and NAD Neck full ROM and supple GI non-tender, non-distended and no masses Inspection: Negative for abdominal distention Auscultation: normoactive bowel sounds Palpation: soft Back/Spine normal ROM and normal to inspection Back/Spine Narrative: Mild tenderness in the right SI joint area as well as the pelvic brim cranial to this. No midline spinal tenderness. Extremity normal to inspection and full ROM Extremity Narrative: With gentle passive internal and external range of motion of the right hip joint patient has no pain. With palpation of the greater trochanter, she is mildly tender. With active hip flexion she does not have pain, even against resistance. With flexed hip and active external rotation of the hip against resistance she has pain throughout the right hip external rotators group as well as into the SI joint area. There is no bony pelvic instability. With palpating deep into and behind the right ASIS, patient has some mild discomfort. There is a little bit of chronic asymmetric edema of the left lower extremity. She has intact pulses distally. Neuro oriented x3, no focal motor deficits and no sensory deficits noted Sensorium / Orientation: alert Psych mental status grossly normal and thought process normal Skin no wounds Rashes: no rashes MDM MDM MDM Narrative Medical decision making narrative: This patient seems to have a combination of issues and not just 1 structure that is bothering her but it certainly seems musculoskeletal. She is in agreement with that when I mention it to her. I do not think she just has greater trochanteric bursitis but it may be contributing, she may also have iliopsoas bursitis, or just needs an iliopsoas release, she is also having pain in the external rotators and the SI joint. I think she may benefit from seeing a physical therapist for both diagnostics and therapeutics. She is in agreement and states she was going to cancel her appointment for today but I encouraged her not to. I also discussed with her she may need to visit her PCP to get a new prescription if she needs a new referral for a different problem so that she can have more sessions with the therapist that are covered by insurance. I offered her analgesics she states she has multiple bottles of analgesics at home and tries not to take those, I offered her prednisone and she declined that. I offered her the greater trochanteric Kenalog injection and she declines that at this time. She states that she will take an [place] which we offered and gave, to see if that helps for the afternoon and for her therapy session. She is not planning on driving, her is going to drive her, she has a walker and a cane at home so she prevents falls. I did review a CT that she had almost 2 weeks ago of the abdomen/pelvis here, I reviewed the images as well, there is no bony abnormality in the right hemipelvis on the imaging, she has had no falls or different events since then to suggest she needs new imaging; they did mention a seroma in the midline abdominal wall, that area is not tender right now, and they also mentioned a lipomatous lesion posterior paraspinal subcutaneous tissue, but they did not specify the location. When I looked at the images, this is right paraspinal but it is well cranial to the pelvic brim and the patient is not having any pain or tenderness there is I think these are incidental and not related. At this time I am comfortable with her going home. Discharge Plan Triage Chief Complaint: Lower Extremity Injury ED Provider: Adi Holley Dx/Rx/DC Orders Clinical Impression: Tendonitis involving right hip abductors, Strain of right iliopsoas muscle Instructions: ED Hip Strain Prescriptions: No Action simvastatin 20 MG tablet 20 mg PO QHS Patient Comments: CHOLESTEROL LOWERING timolol maleate 1 DROP drops 1 drp Each Eye DAILY Patient Comments: GLAUCOMA lisinopril 10 MG tablet 40 mg PO QHS metoprolol succinate 25 mg Tablet Extended Release 24 Hr 12.5 mg PO DAILY Qty: 30 1RF furosemide 40 mg tablet 40 mg PO DAILY PRN PRN (Reason: edema) amlodipine 5 mg tablet 5 mg PO DAILY ibuprofen 400 mg tablet 400 mg PO Q6H PRN (Reason: fever or pain) Qty: 20 0RF ondansetron 4 mg tablet,disintegrating 4 mg PO Q6H PRN PRN (Reason: Nausea) Qty: 15 0RF Primary Care Provider: Edis Harding Referrals: Edis Harding MD [Primary Care Provider] - (for physical therapy referral/further evaluation) Print Language: Lithuanian Disposition Disposition: Home, Self Care
[2025-06-20 11:28] VITALS: BP 162/56; PULSE 61; RESP 14; TEMP 36.5; O2SAT 98
[2025-06-20] MEDS: HYDROcodone Bitartrate/Apap 5/325 Tablet PO (11:30)
== END 2025-06-20 12:28 | disposition home or self-care (01) ==
PROVIDERS: Emergency Provider Emergency Medicine; PCP Family Medicine; Visit Provider Emergency Medicine
DX: M76.01 Gluteal tendinitis, right hip (principal); S76.011A Strain of muscle, fascia and tendon of right hip, initial encounter; X58.XXXA Exposure to other specified factors, initial encounter; R60.0 Localized edema; E78.00 Pure hypercholesterolemia, unspecified; Z79.899 Other long term (current) drug therapy; Z87.891 Personal history of nicotine dependence
CPT/HCPCS: 99284

== ENCOUNTER → 2025-07-24 | Outpatient (CLI) | payer MEDICARE, SELFPAY ==
--- NOTE | 2025-07-24 15:44 | MRI_ITS ---
PROCEDURE: SPINE LUMBAR (ROUTINE) 07/24/2025 REASON FOR EXAM: BACK PAIN AND R HIP/LEG PAIN TECHNIQUE: SPINE LUMBAR (ROUTINE) COMPARISON: MR lumbar spine 12/15/2022. FINDINGS: Vertebrae: Preserved in height and signal. A hyperintense signal on T2, T1 at L1 vertebral body consistent with hemangiomas. Right L5 spondylolysis. Alignment: Anterolisthesis L4 on L5 by 4 mm. Anterolisthesis L5 on S1 by 3 mm. Retrolisthesis L1 on L2 by 3 mm and L2 on L3 by 2 mm. Conus Medullaris: Unremarkable. L1-2: Disc bulge. Disc desiccation. Facet joint arthropathy. Severe bilateral foramina stenosis. Moderate canal stenosis. L2-3: Disc desiccation. Disc bulge. Facet joint arthropathy. Moderate bilateral foramina stenosis. Mild canal stenosis. L3-4: Disc desiccation. Disc bulge. Facet joint arthropathy. Ligamentum flavum hypertrophy. Mild bilateral foramina stenosis. Severe canal stenosis, worsened. L4-5: Disc bulge. Facet joint arthropathy. Ligamentum flavum hypertrophy. Moderate right and severe left foramina stenosis with abutment upon the exiting nerves. Severe canal stenosis. Similar. L5-S1: Disc bulge. Disc desiccation. Facet joint arthropathy. Moderate bilateral foramina stenosis. No significant canal stenosis. Sacrum: Unremarkable. A simple cyst at the lower pole of the right kidney. MRI/Spine Lumbar (Routine) IMPRESSION: Compared to MRI 2022, worsening severe canal stenosis at L3-L4. No change on the remainder levels. Severe canal stenosis and moderate bilateral foramina stenosis at L4-L5. Severe bilateral foramina stenosis at L2-L3. Moderate bilateral foramina stenosis at L2-L3 and L5-S1. Reading Location: [id number]
== END | disposition home or self-care (01) ==
LOC: MRI 15:42
PROVIDERS: PCP Family Medicine; Referring Provider Family Medicine; Visit Provider Family Medicine
DX: M54.9 Dorsalgia, unspecified (principal); M25.551 Pain in right hip; M79.604 Pain in right leg
CPT/HCPCS: 72148

== ENCOUNTER 2025-09-30 13:00 | Outpatient (RCR) | payer MEDICARE, SELFPAY ==
--- NOTE | 2025-03-26 15:40 | HP.PTEVAL ---
Patient's Visit Information Visit Information Visit Information: ZACKARY HAMILTON is a 89 year old F referred to Physical Therapy by Dr. Edis Harding MD with a diagnosis of Gait instability. Date of Evaluation: 03/26/25 Physical Therapist: Hector Holden, PT, ATC Visit Plan Frequency: 2-3x /Week Duration: 4-6 Weeks Plan: Balance and proprio, gait training, B LE strengthening, nustep, and HEP Subjective Subjective: Pt reports she has had impaired balance for a chronic time period. Pt notes she had PT a couple months ago which was really helpful, but then notes she became very ill for a long period of time consisting of flu, and covid. pt notes she had to stop therapy at that time secondary to her illness. Pt notes she thinks her balance has regressed since stopping therapy. Pt notes she walks with a walker most of the time. Pt enters clinic today using a SPC, but requires 1 CGA to aid with ambulation. Pt notes this has been the worst year of my life with my health just falling apart. Pt reports she is here today to continue with hopes of improving her balance. Pt reports she has only had a Hx of one fall, which was a long time ago. Pt reports she has good sensation in her feet. Pt reports she is not currently in pain today. Pt has steps to enter her house which she mostly negotiates one step at a time. Pt reports her balance is the absolute worst with descending ramps Objective Objective: Neuro: B LE sensation is WNL to light touch. MMT: B LE's are grossly 4/5 throughout when compared bilaterally TU sec FGA: Balance/Special Test Scores Functional Gait Assessment Score: 9 % Disability: 70.0000 Lower Extremity Functional Score: 31 Goals Goal 1:: Pt will perform the TUG in under 15 seconds to aid with gait efficiency Goal Time Frame: 4-6 Weeks Goal 2:: Pt will improve her FGA score x 5-10 points to aid with preventing future falls Goal Time Frame: 4-6 Weeks Goal 3:: Pt will be I with HEP in 4 weeks Goal Time Frame: 4-6 Weeks Goal 4:: Pt will ambulate greater than 1000 feet to aide with community ambulation Goal Time Frame: 4-6 Weeks Rehabilitation Potential Physical Therapy Diagnosis: Pt has B LE weakness, gait instability, and gait abnormalities secondary to debilitation Rehabilitation Potential: Good Anticipated Interventions Patient/Client Instruction: Educate patient on: Condition and Plan of Care For the Purpose of:: To improve self management Therapeutic Exercise to Include: Strength training, Endurance training, Balance training, Gait and locomotor training and Dynamic Lumbar Stabilization For the Purpose of:: To decrease pain, To increase ROM and To improve muscle performance and motor function Cryotherapy (ice pack, ice massage): Yes For the Purpose of:: To decrease pain Text: Thank you for the opportunity to evaluate your patient. For Medicare and Medicare HMO plans, please review the plan of care and approve it. It will need to be FAXED BACK to us at [phone] for Medicare purposes. For Medicare only, by signing this I certify the plan of care. Please let me know if there are questions or concerns regarding this plan of care. Physician Signature: Date:
--- NOTE | 2025-06-24 13:59 | HP.PTREVAL ---
Re-Evaluation Intro: Dr. Edis Harding MD, It has been my pleasure to treat ZACKARY HAMILTON over the last 17 visits for Gait instability. Please see the progress note below for an update on the physical therapy plan of care! Subjective Subjective: Pt. arrives today with reports of last Monday she went to ER due to having R lower abdominal pain that radiates into her back. Pt. reports increased pain during standing, but if she flexes fwrd it is slightly better. Pt reports having 5/10 pain today. She reports that her pain has reduced since Monday. History of R sided kidney stones as well. Objective Objective/Function: ROM: R hip: full ROM without changes in pain. Negative FADDIR, Negative NAEEM, No pain with hip extension. LUMBAR SPINE; flexion min loss NE, ext mod loss NE, rotation min loss NE bilat, SB mod loss NE bilat. Pt. has no myotomal strength loss in BLEs, no effect on her abdomen with trials. Pt. did have marked pain with palpation R abdomen, no pain at R iliopsoas complex. I did trial prone lying, again no effect on symptoms. spring testing throughout lumbar spine was sore in lumbar spine, marked hypomobility noted. No radicular symptoms noted. I am not sure what is causing her R abdominal pain. I was unable to reproduce it with all testing today. She does have more pain with WBing, but other than that I was not able to reproduce. I suggest that she follow up with physician to determine if further imaging or testing would be beneficial. Plan Plan Plan: 05/06/25- Recommend pt to continue with focus on tolerance for activity, B LE strengthening, and balance activity. Balance/Gait/Functional tests Balance/Special Test Scores Functional Gait Assessment Score: 9 % Disability: 70.0000 Lower Extremity Functional Score: 31 Goals Goals Goal 1:: Pt will perform the TUG in under 15 seconds to aid with gait efficiency Goal Time Frame: 4-6 Weeks Goal 2:: Pt will improve her FGA score x 5-10 points to aid with preventing future falls Goal Time Frame: 4-6 Weeks Goal 3:: Pt will be I with HEP in 4 weeks Goal Time Frame: 4-6 Weeks Goal 4:: Pt will ambulate greater than 1000 feet to aide with community ambulation Goal Time Frame: 4-6 Weeks Anticipated Interventions Anticipated Interventions Patient/Client Instruction: Educate patient on: Condition and Plan of Care For the Purpose of:: To improve self management Therapeutic Exercise to Include: Strength training, Endurance training, Balance training, Gait and locomotor training and Dynamic Lumbar Stabilization For the Purpose of:: To decrease pain, To increase ROM and To improve muscle performance and motor function Cryotherapy (ice pack, ice massage): Yes For the Purpose of:: To decrease pain Re-Evaluation Ending Re-evaluation ending: Please do not hesitate to contact me at [phone] by phone or if you have questions or concerns regarding this new plan of care! Sincerely, Pedro Anaya DPT
--- NOTE | 2025-09-02 15:39 | HP.PTREVAL ---
Re-Evaluation Intro: Dr. Edis Harding MD, It has been my pleasure to treat ZACKARY HAMILTON over the last 19 visits for Gait instability. Please see the progress note below for an update on the physical therapy plan of care! Subjective Subjective: Pt reports she has been very ill for a long period of time. Pt notes she is feeling better now. Pt reports she has had an MRI since last session which revealed OA. Objective Objective/Function: Pt is able to ambulate 340 feet until needing to rest secondary to fatigue with WW. FGA: with use of WW and CGAx1 TU seconds Pt has regressed backwards to her premorbid level from being sick. She is very weak and experiences difficulty with balance and strength Plan Plan Plan: 09/02/25- Cont with LE strengthening, balance and proprio, gait training, core stab ex's, and HEP Balance/Gait/Functional tests Balance/Special Test Scores Functional Gait Assessment Score: 15 % Disability: 50.0000 Lower Extremity Functional Score: 31 Goals Goals Goal 1:: Pt will perform the TUG in under 15 seconds to aid with gait efficiency Goal Time Frame: 4-6 Weeks Goal Progress: Progressing Goal 2:: Pt will improve her FGA score x 5-10 points to aid with preventing future falls Goal Time Frame: 4-6 Weeks Goal Progress: Goal Met Goal 3:: Pt will be I with HEP in 4 weeks Goal Time Frame: 4-6 Weeks Goal Progress: Progressing Goal 4:: Pt will ambulate greater than 1000 feet to aide with community ambulation Goal Time Frame: 4-6 Weeks Goal Progress: Progressing Anticipated Interventions Anticipated Interventions Patient/Client Instruction: Educate patient on: Condition and Plan of Care For the Purpose of:: To improve self management Therapeutic Exercise to Include: Strength training, Endurance training, Balance training, Gait and locomotor training and Dynamic Lumbar Stabilization For the Purpose of:: To decrease pain, To increase ROM and To improve muscle performance and motor function Cryotherapy (ice pack, ice massage): Yes For the Purpose of:: To decrease pain Re-Evaluation Ending Re-evaluation ending: Please do not hesitate to contact me at [phone] by phone or if you have questions or concerns regarding this new plan of care! Sincerely, Hector Holden, PT, ATC
--- NOTE | 2025-11-26 14:18 | HP.PTDCSUM ---
Discharge Summary D/C summary: It has been my pleasure to treat ZACKARY HAMILTON referred by Dr. Edis Harding MD, with the diagnosis of Gait instability for a total of 26 visit(s). Discharge Date: Please see the following information for a summary of their discharge status. Subjective Subjective: I think I might be ready to do stuff on my own Pain B knees: Pain Intensity (Out of 10): 0 R side of abdomen: Pain Intensity (Out of 10): 0 Back: Pain Intensity (Out of 10): 2 Overall Improvement % Improvement: 0 Objective Objective/Function: Pt is able to ambulate 560 feet until feeling fatigued and needing a rest Pt is progressing with HEP FGA: TU.5 sec Pt is showing good progress at this time Goals Goal 1:: Pt will perform the TUG in under 15 seconds to aid with gait efficiency Goal Progress: Progressing Goal 2:: Pt will improve her FGA score x 5-10 points to aid with preventing future falls Goal Progress: Goal Met Goal 3:: Pt will be I with HEP in 4 weeks Goal Progress: Progressing Goal 4:: Pt will ambulate greater than 1000 feet to aide with community ambulation Goal Progress: Progressing Plan Plan: 09/30/25- cont by 1 more Rx to make sure pt is I with HEP. Then follow up in one month D/C Information d/c sentence: If there are questions or concerns regarding this patient's physical therapy, please feel free to call me at [phone]. Thank you for the referral of this patient. Sincerely, Hector Holden, PT, ATC Balance/Gait/Functional tests Balance/Special Test Scores Functional Gait Assessment Score: 15 % Disability: 50.0000 Lower Extremity Functional Score: 31 Improvement % Improvement: 0
== END 2025-09-30 19:00 | disposition home or self-care (01) ==
LOC: PT 13:00
PROVIDERS: PCP Family Medicine; Referring Provider Family Medicine; Visit Provider Family Medicine
DX: R26.81 Unsteadiness on feet (principal); M51.369 Other intervertebral disc degeneration, lumbar region without mention of lumbar back pain or lower extremity pain
CPT/HCPCS: 97110; 97161; 97530